=== PATIENT | male | born 1940 | race Caucasian/White ===

== ENCOUNTER 2016-12-21 15:21 | Inpatient (IN) | payer MEDICARE ==
[2016-12-21] MEDS ORDERED: IBUPROFEN 600 MG TAB PO STA (15:51)
[2016-12-21] MEDS ORDERED: ACETAMINOPHEN TAB 500 MG TAB PO STA (15:51)
--- NOTE | 2016-12-21 15:54 | ED ---
General Adult HPI - General Chief complaint: Fever Stated complaint: cancer patient/fever Time Seen by Provider: 12/21/16 15:39 Source: patient, family, RN notes reviewed Mode of arrival: wheelchair Limitations: no limitations - History of Present Illness Initial comments: Patient is a pleasant 76-year-old male presenting to the emergency Department with complaints of fever. Onset was a couple hours ago. Patient has had sinus congestion and mild sore throat for the past 3-4 days. Patient does have some mild yellow sputum production with cough. Patient denies chest pain. Patient had difficulty taking Motrin and therefore did not take it. This was secondary to his congestion. Patient does have a history of CLL and is not currently on any treatment for this. - Related Data Home Medications Medication Instructions Recorded Confirmed Budesonide/Formoterol Fumarate 2 puff INHALATION RT-BID 12/21/16 12/21/16 [Symbicort 160-4.5 Mcg Inhaler] Levothyroxine Sodium [Synthroid] 100 mcg PO DAILY 12/21/16 12/21/16 Allergies Allergy/AdvReac Type Severity Reaction Status Date / Time amoxicillin Allergy Rash/Hives Verified 12/21/16 16:10 Review of Systems ROS Statement: Those systems with pertinent positive or pertinent negative responses have been documented in the HPI. ROS Other: All systems not noted in ROS Statement are negative. Constitutional: Reports: fever, chills Eyes: Denies: eye pain ENT: Reports: throat pain, congestion. Denies: ear pain Respiratory: Reports: cough. Denies: dyspnea Cardiovascular: Denies: chest pain Endocrine: Reports: fatigue Gastrointestinal: Denies: abdominal pain Genitourinary: Denies: urgency Musculoskeletal: Denies: back pain Skin: Denies: rash Neurological: Denies: weakness Past Medical History Past Medical History: Cancer, Pneumonia, Prostate Disorder, Thyroid Disorder Additional Past Medical History / Comment(s): CHRONIC LYMPHOCYTIC LEUKEMIA, CHRONIC BRONCHITIS History of Any Multi-Drug Resistant Organisms: None Reported Additional Past Surgical History / Comment(s): THYROID SURGERY Past Anesthesia/Blood Transfusion Reactions: Blood Transfusion Reaction Additional Past Anesthesia/Blood Transfusion Reaction / Comment(s): GAVE BENADRYL AND RAN SLOW. Has had multiple transfusuions and has a reaction every time Past Psychological History: No Psychological Hx Reported Smoking Status: Former smoker Past Alcohol Use History: None Reported Past Drug Use History: None Reported General Exam Limitations: no limitations General appearance: alert, in no apparent distress Head exam: Present: atraumatic Eye exam: Present: normal appearance, PERRL ENT exam: Present: other (Left posterior pharynx with erythema and several small ulcers. Left lateral posterior visualized tongue with plaque/ulcer.) Neck exam: Present: normal inspection. Absent: meningismus Respiratory exam: Present: normal lung sounds bilaterally. Absent: chest wall tenderness Cardiovascular Exam: Present: regular rate, normal rhythm GI/Abdominal exam: Present: soft. Absent: distended, tenderness, guarding, rebound, rigid Extremities exam: Present: normal inspection. Absent: pedal edema, calf tenderness Neurological exam: Present: alert Psychiatric exam: Present: normal affect, normal mood Skin exam: Present: normal color Course Vital Signs 12/21/16 12/21/16 12/21/16 15:38 16:10 16:38 Temperature 103.4 F H 100.6 F H Pulse Rate 100 120 H Respiratory 22 20 20 Rate Blood Pressure 155/74 136/77 O2 Sat by Pulse 94 L 92 L Oximetry 12/21/16 17:31 Temperature Pulse Rate 112 H Respiratory 20 Rate Blood Pressure 147/84 O2 Sat by Pulse 91 L Oximetry EKG Findings - EKG Comments: EKG Findings:: Normal sinus rhythm 97. Normal intervals. Normal axis. Normal QRS. Normal ST-T. Medical Decision Making - Medical Decision Making Patient reevaluated and updated. Case discussed with Dr. Rucker, who will admit his patient. Consult with Dr. Pimentel. He agrees with antibiotic choice at this time. Patient does meet sepsis criteria. - Lab Data Result diagrams: 12/21/16 15:50 12/21/16 15:50 Lab Results 12/21/16 12/21/16 12/21/16 Range/Units 15:50 15:50 15:50 WBC 133.1 H* (3.8-10.6) k/uL RBC 4.79 (4.30-5.90) m/uL Hgb 13.1 (13.0-17.5) gm/dL Hct 40.6 (39.0-53.0) % MCV 84.8 (80.0-100.0) fL MCH 27.3 (25.0-35.0) pg MCHC 32.2 (31.0-37.0) g/dL RDW 17.1 H (11.5-15.5) % Plt Count 179 (150-450) k/uL Neutrophils % (Manual) 10.0 % Lymphocytes % (Manual) 89.0 % Monocytes % (Manual) 1.0 % Neutrophils # (Manual) 13.3 H (1.3-7.7) k/uL Lymphocytes # (Manual) 118.5 H (1.0-4.8) k/uL Monocytes # (Manual) 1.3 H (0-1.0) k/uL Nucleated RBCs 0 (0-0) /100 WBC Manual Slide Review Performed Hypochromasia Slight Anisocytosis Slight PT (9.0-12.0) sec INR (<1.2) APTT (22.0-30.0) sec Sodium 137 (137-145) mmol/L Potassium 4.4 (3.5-5.1) mmol/L Chloride 101 (98-107) mmol/L Carbon Dioxide 24 (22-30) mmol/L Anion Gap 12 mmol/L BUN 17 (9-20) mg/dL Creatinine 1.10 (0.66-1.25) mg/dL Est GFR (MDRD) Af Amer >60 (>60 ml/min/1.73 sqM) Est GFR (MDRD) Non-Af >60 (>60 ml/min/1.73 sqM) Glucose 104 H (74-99) mg/dL Plasma Lactic Acid Jason 1.1 (0.7-2.0) mmol/L Calcium 9.0 (8.4-10.2) mg/dL Total Bilirubin 0.6 (0.2-1.3) mg/dL AST 25 (17-59) U/L ALT 33 (21-72) U/L Alkaline Phosphatase 90 (38-126) U/L Total Protein 5.8 L (6.3-8.2) g/dL Albumin 4.0 (3.5-5.0) g/dL Urine Color Urine Appearance (Clear) Urine pH (5.0-8.0) Ur Specific [place] (1.001-1.035) Urine Protein (Negative) Urine Glucose (UA) (Negative) Urine Ketones (Negative) Urine Blood (Negative) Urine Nitrite (Negative) Urine Bilirubin (Negative) Urine Urobilinogen (<2.0) mg/dL Ur Leukocyte Esterase (Negative) Urine RBC (0-5) /hpf Urine WBC (0-5) /hpf Urine Mucus (None) /hpf 12/21/16 12/21/16 Range/Units 15:50 15:50 WBC (3.8-10.6) k/uL RBC (4.30-5.90) m/uL Hgb (13.0-17.5) gm/dL Hct (39.0-53.0) % MCV (80.0-100.0) fL MCH (25.0-35.0) pg MCHC (31.0-37.0) g/dL RDW (11.5-15.5) % Plt Count (150-450) k/uL Neutrophils % (Manual) % Lymphocytes % (Manual) % Monocytes % (Manual) % Neutrophils # (Manual) (1.3-7.7) k/uL Lymphocytes # (Manual) (1.0-4.8) k/uL Monocytes # (Manual) (0-1.0) k/uL Nucleated RBCs (0-0) /100 WBC Manual Slide Review Hypochromasia Anisocytosis PT 12.1 H (9.0-12.0) sec INR 1.2 H (<1.2) APTT 25.0 (22.0-30.0) sec Sodium (137-145) mmol/L Potassium (3.5-5.1) mmol/L Chloride (98-107) mmol/L Carbon Dioxide (22-30) mmol/L Anion Gap mmol/L BUN (9-20) mg/dL Creatinine (0.66-1.25) mg/dL Est GFR (MDRD) Af Amer (>60 ml/min/1.73 sqM) Est GFR (MDRD) Non-Af (>60 ml/min/1.73 sqM) Glucose (74-99) mg/dL Plasma Lactic Acid Jason (0.7-2.0) mmol/L Calcium (8.4-10.2) mg/dL Total Bilirubin (0.2-1.3) mg/dL AST (17-59) U/L ALT (21-72) U/L Alkaline Phosphatase (38-126) U/L Total Protein (6.3-8.2) g/dL Albumin (3.5-5.0) g/dL Urine Color Yellow Urine Appearance Clear (Clear) Urine pH 5.0 (5.0-8.0) Ur Specific [place] 1.021 (1.001-1.035) Urine Protein 1+ H (Negative) Urine Glucose (UA) Negative (Negative) Urine Ketones 2+ H (Negative) Urine Blood Trace H (Negative) Urine Nitrite Negative (Negative) Urine Bilirubin Negative (Negative) Urine Urobilinogen <2.0 (<2.0) mg/dL Ur Leukocyte Esterase Trace H (Negative) Urine RBC <1 (0-5) /hpf Urine WBC 6 H (0-5) /hpf Urine Mucus Moderate H (None) /hpf - Radiology Data Radiology results: image reviewed (Chest x-ray shows left basilar infiltrate) Critical Care Time Critical Care Time: Yes Total Critical Care Time: 33 Disposition Clinical Impression: Pneumonia, Sepsis Disposition: ADMITTED IP TO THIS [facility] Condition: Serious Referrals: None,Stated [Primary Care Provider] - 1-2 days Decision Time: 17:52
[2016-12-21] MEDS: SODIUM CHLORIDE 0.9% 500 ML IV SCH (15:58)
[2016-12-21 16:13] LABS: Appearance,Urine Clear (Clear); Bilirubin,Urine Negative (Negative); Glucose,Urine (UA) Negative (Negative); Ketones,Urine 2+ (Negative); Leukocyte Esterase,Urine Trace (Negative); Mucus,Urine Moderate /hpf; Nitrite,Urine Negative (Negative); Particle Count 6083; Protein,Urine 1+ (Negative); RBC,Urine <1 /hpf (0-5); Specific Gravity,Urine 1.021 (1.001-1.035); UA Billing (MACRO vs. MICRO) MICRO; Urobilinogen,Urine <2.0 mg/dL (<2.0); WBC,Urine 6 /hpf (0-5)
[2016-12-21 16:17] LABS: INR 1.2 (<1.2); Prothrombin Time 12.1 sec (9.0-12.0)
[2016-12-21 16:18] LABS: ALT 33 U/L (21-72); AST 25 U/L (17-59); Alkaline Phosphatase 90 U/L (38-126); Anion Gap 12 mmol/L; Anisocytosis Slight; Aty Lym Flag Marked; Blood Urea Nitrogen 17 mg/dL (9-20); CH 26.3; CHCM 31.2; Carbon Dioxide 24 mmol/L (22-30); Chloride 101 mmol/L (98-107); Glucose 104 mg/dL (74-99); HCT 40.6 % (39.0-53.0); HDW 2.92; HGB 13.1 gm/dL (13.0-17.5); Hypochromasia Slight; MCH 27.3 pg (25.0-35.0); MCHC 32.2 g/dL (31.0-37.0); MCV 84.8 fL (80.0-100.0); Mean Platelet Volume 7.3; Non-African American GFR(MDRD) >60 (>60 ml/min/1.73 sqM); Potassium 4.4 mmol/L (3.5-5.1); RBC 4.79 m/uL (4.30-5.90); RDW 17.1 % (11.5-15.5); Sodium 137 mmol/L (137-145); Total Bilirubin 0.6 mg/dL (0.2-1.3); Total Protein 5.8 g/dL (6.3-8.2); WBC (Perox) 128.4
[2016-12-21 16:31] LABS: WBC 133.1 k/uL (3.8-10.6)
--- NOTE | 2016-12-21 16:33 | XR ---
EXAMINATION TYPE: XR chest 2V DATE OF EXAM: 12/21/2016 COMPARISON: 01/22/2015 HISTORY: Fever TECHNIQUE: Frontal and lateral views of the chest are obtained. FINDINGS: There is no heart failure. There is some coarsening of markings at the left lung base. The re is no pleural effusion. There are no hilar masses. There are chest leads. Bony thorax is intact. IMPRESSION: New mild left basilar infiltrate compared to old exam. No heart failure.
[2016-12-21] MEDS ORDERED: LEVOFLOXACIN 750MG-D5W PMX 750 MG in DEXTROSE/WATER 1 150ML.BAG IVPB STA (17:25)
[2016-12-21] MEDS ORDERED: AZTREONAM 2 GM in SODIUM CHLORIDE 0.9% 100 ML IVPB STA (17:31)
[2016-12-21 17:37] LABS: Add Differential Manual Differential
[2016-12-21 17:39] LABS: Nucleated Red Blood Cells 0 /100 WBC (0-0); Total Cells Counted 100
[2016-12-21 17:40] LABS: Manual Review Performed
[2016-12-21] MEDS ORDERED: SODIUM CHLORIDE 0.9% 1,000 ML IV STA (17:51)
[2016-12-21] MEDS ORDERED: PNEUMONIA PROTOCOL UTILIZED 1 EACH MISC PO PRN (17:52)
[2016-12-21] MEDS ORDERED: HEPARIN SODIUM,PORCINE 5,000 UNIT/ML 1 ML VIAL IV PRN (18:21)
[2016-12-21] MEDS ORDERED: HEPARIN SODIUM,PORCINE 5,000 UNIT/ML 1 ML VIAL IV ONE (18:21)
[2016-12-21] MEDS ORDERED: DILTIAZEM 5 MG/ML 5 ML VIAL IVP STA (18:22)
[2016-12-21] MEDS ORDERED: DILTIAZEM 125 MG in SODIUM CHLORIDE 0.9% 100 ML IV SCH (18:30)
[2016-12-21] MEDS: HEPARIN SODIUM,PORCINE/D5W PMX 25,000 UNIT in DEXTROSE/WATER 1 500ML.BAG IV SCH (18:41)
[2016-12-21] MEDS: SODIUM CHLORIDE 0.9% 1,000 ML IV SCH (19:08)
[2016-12-21 19:21] LABS: Creatine Kinase MB 0.7 ng/mL (0.0-2.4); Troponin I 0.021 ng/mL (0.000-0.034)
[2016-12-21 19:28] VITALS: BMI 30.1
[2016-12-21] MEDS: AZTREONAM 2 GM in SODIUM CHLORIDE 0.9% 100 ML IVPB SCH (23:33)
[2016-12-22] MEDS ORDERED: ACETAMINOPHEN TAB 325 MG TAB PO PRN (01:08)
[2016-12-22] MEDS ORDERED: LEVOTHYROXINE 125 MCG TAB PO SCH (06:30)
[2016-12-22 06:36] LABS: Anisocytosis Slight; Aty Lym Flag Marked; CH 26.2; CHCM 30.1; HCT 37.7 % (39.0-53.0); HDW 2.74; HGB 11.9 gm/dL (13.0-17.5); Hypochromasia Marked; MCH 27.5 pg (25.0-35.0); MCHC 31.5 g/dL (31.0-37.0); MCV 87.5 fL (80.0-100.0); Mean Platelet Volume 7.4; RBC 4.31 m/uL (4.30-5.90); RDW 16.8 % (11.5-15.5); WBC (Perox) 90.98
[2016-12-22 06:44] LABS: WBC 91.6 k/uL (3.8-10.6)
[2016-12-22] MEDS: ACETAMINOPHEN IV (For NPO) 1,000 MG in EMPTY BAG 1 BAG IVPB PRN ×3 (06:44→22:29)
[2016-12-22] MEDS: SODIUM CHLORIDE 0.9% 1,000 ML IV SCH ×3 (06:45→20:14)
[2016-12-22 06:53] LABS: INR 1.4 (<1.2); Partial Thromboplastin Time 50.2 sec (22.0-30.0); Prothrombin Time 13.5 sec (9.0-12.0)
[2016-12-22 07:04] LABS: Add Differential Manual Differential
--- NOTE | 2016-12-22 07:34 | XR ---
EXAMINATION TYPE: XR chest 2V DATE OF EXAM: 12/22/2016 COMPARISON: 12/21/2016 HISTORY: Shortness of breath TECHNIQUE: Frontal and lateral views of the chest are obtained. FINDINGS: Scattered senescent parenchymal changes noted. Hyperinflation compatible with COPD. Left lower lobe atelectasis and/or infiltrate persists and is essentially unchanged. Heart size is stable. Mediastinal structures are stable and grossly unremarkable. No evidence for hilar prominence. Degenerative changes dorsal spine. IMPRESSION: 1. Left lower lobe atelectasis and/or infiltrate persists and is essentially unchanged.
[2016-12-22] MEDS: AZTREONAM 2 GM in SODIUM CHLORIDE 0.9% 100 ML IVPB SCH (08:09)
[2016-12-22] MEDS: SYMBICORT 160-4.5 MCG INHALER INHALATION SCH ×2 (08:36→20:29)
[2016-12-22] MEDS ORDERED: LEVOTHYROXINE IVP 100 MCG/5 ML VIAL IVPB SCH (09:30)
[2016-12-22] MEDS ORDERED: LEVOTHYROXINE IVP 100 MCG/5 ML VIAL IV SCH (09:37)
[2016-12-22 09:53] LABS: Manual Review Performed; Nucleated Red Blood Cells 0 /100 WBC (0-0); Total Cells Counted 100
[2016-12-22] MEDS: MULTIVITAMINS, THERA 1 EACH TAB PO SCH (10:25)
[2016-12-22] MEDS: LEVOTHYROXINE IVP 100 MCG/5 ML VIAL IV SCH (10:50)
--- NOTE | 2016-12-22 11:58 | ECHOF ---
Referral Reason:New AF MEASUREMENTS -------- HEIGHT: 182.9 cm WEIGHT: 106.6 kg BP: IVSd: 1.2 cm (0.6 - 1.1) LVIDd: 4.1 cm (3.9 - 5.3) LVPWd: 1.3 cm (0.6 - 1.1) IVSs: 1.4 cm LVIDs: 2.3 cm LVPWs: 2.3 cm LAESV Index (A-L): 30.36 ml/m Ao Diam: 3.2 cm (2.0 - 3.7) AV Cusp: 2.2 cm (1.5 - 2.6) LA Diam: 4.5 cm (2.7 - 3.8) MV EXCURSION: 20.477 mm (> 18.000) MV EF SLOPE: 96 mm/s (70 - 150) EPSS: 0.4 cm MV E Barry: 0.93 m/s MV DecT: 149 ms MV A Barry: 0.94 m/s MV E/A Ratio: 0.98 RAP: 5.00 mmHg RVSP: 27.33 mmHg FINDINGS -------- Sinus rhythm. This was a technically adequate study. The left ventricular size is normal. There is mild concentric left ventricular hypertrophy. Overall left ventricular systolic function is low-normal with, an EF between 50 - 55 %. The right ventricle is normal in size and function. LA is midly dilated 29-33ml/m2. The right atrium is normal in size. Aortic valve is trileaflet and is mildly thickened. The mitral valve leaflets are mildly thickened. Mild mitral regurgitation is present. Mild tricuspid regurgitation present. The right ventricular systolic pressure, as measured by Doppler, is 27.33mmHg. There is no pulmonic regurgitation present. The aortic root size is normal. There is no pericardial effusion. CONCLUSIONS -------- 1. Sinus rhythm. 2. There is no pulmonic regurgitation present. 3. The aortic root size is normal. 4. There is no pericardial effusion. 5. This was a technically adequate study. 6. There is mild concentric left ventricular hypertrophy. 7. Overall left ventricular systolic function is low-normal with, an EF between 50 - 55 %. 8. LA is midly dilated 29-33ml/m2. 9. Aortic valve is trileaflet and is mildly thickened. 10. The mitral valve leaflets are mildly thickened. 11. Mild mitral regurgitation is present. 12. Mild tricuspid regurgitation present. ROLL CONTOUR GRINDER: Madelyn Curran RDCS
--- NOTE | 2016-12-22 12:00 | P.CRDCN ---
History of Present Illness Consult date: 12/22/16 Reason for Consult (text): New atrial fibrillation with RVR Chief complaint: Fever, cough, sinus congestion, sore throat History of present illness: This a pleasant 76-year-old gentleman with a history of CLL, who presented to the emergency department with complaints of fever with associated sore throat, sinus congestion and a cough with yellow sputum. Chest x-ray and admission showed mild left basilar infiltrate. Initially found to be in sinus rhythm however converted to atrial fibrillation with rapid ventricular response while in the emergency department. He was started on IV heparin and Cardizem drip at 5 mg an hour. He has since converted to sinus rhythm. He is being kept nothing by mouth due to difficulty swallowing secondary to throat sores. Upon examination, patient is sitting up in a chair at the side of the bed. He denies any complaints of palpitations, denies feeling his heart racing. He denies complaints of chest discomfort or dizziness. He's had no syncope and no edema. It is a complaint of sore throat, sinus congestion and a cough. Patient has been febrile on and off since admission. Past Medical History Past Medical History: Cancer, Pneumonia, Prostate Disorder, Thyroid Disorder Additional Past Medical History / Comment(s): CHRONIC LYMPHOCYTIC LEUKEMIA, CHRONIC BRONCHITIS History of Any Multi-Drug Resistant Organisms: None Reported Additional Past Surgical History / Comment(s): THYROID SURGERY Past Anesthesia/Blood Transfusion Reactions: Blood Transfusion Reaction Additional Past Anesthesia/Blood Transfusion Reaction / Comment(s): GAVE BENADRYL AND RAN SLOW. Has had multiple transfusuions and has a reaction every time Past Psychological History: No Psychological Hx Reported Smoking Status: Former smoker - Past Family History Father Family Medical History: Dementia Mother Family Medical History: No Reported History Medications and Allergies Home Medications Medication Instructions Recorded Confirmed Type Budesonide/Formoterol Fumarate 2 puff INHALATION RT-BID 12/21/16 12/21/16 History [Symbicort 160-4.5 Mcg Inhaler] Levothyroxine Sodium [Synthroid] 125 mcg PO DAILY 12/21/16 12/21/16 History Multivitamins, Thera [Multivitamin 1 tab PO DAILY 12/21/16 12/21/16 History (formulary)] Allergies Allergy/AdvReac Type Severity Reaction Status Date / Time amoxicillin Allergy Rash/Hives Verified 12/21/16 16:10 Physical Exam Vitals: Vital Signs Temp Pulse Pulse Resp BP BP Pulse Ox 12/22/16 11:40 99.5 F 92 20 153/66 94 L 12/22/16 08:20 99.4 F 76 16 123/58 91 L 12/22/16 04:00 102.0 F H 92 20 133/59 92 L 12/22/16 00:00 99.9 F H 94 20 126/61 94 L 12/21/16 20:00 98.5 F 94 20 122/58 94 L 12/21/16 19:11 134 H 110/56 12/21/16 18:43 100.2 F H 133 H 20 115/78 94 L 12/21/16 18:19 98.4 F 140 H 16 114/67 94 L 12/21/16 18:00 134 H 12/21/16 17:31 112 H 20 147/84 91 L 12/21/16 16:38 100.6 F H 120 H 20 136/77 92 L 12/21/16 16:10 20 12/21/16 15:38 103.4 F H 100 22 155/74 94 L Intake and Output 12/21/16 12/22/16 12/22/16 22:59 06:59 14:59 Intake Total 655.043 1014 Output Total 100 100 Balance 26.667 1074 Intake: IV 1174 ACETAMINOPHEN IV (For NPO 50 ) 1,000 mg In Empty Bag 1 bag @ 400 mls/hr IVPB Q8HR PRN Rx#:[id number] Aztreonam 2 gm In Sodium 100 Chloride 0.9% 100 ml @ 100 mls/hr IVPB Q8HR [facility] Rx#:[id number] Diltiazem 125 mg In 40 Sodium Chloride 0.9% 100 ml @ 5 MG/HR 5 mls/hr IV .Q24H [facility] Rx#:[id number] Heparin Sodium,Porcine/ 184 D5w Pmx 25,000 unit In Dextrose/Water 1 500ml. bag @ 10.5 UNITS/KG/HR 20 mls/hr IV .Q24H [facility] Rx#: [id number] Sodium Chloride 0.9% 1, 800 000 ml @ 100 mls/hr IV . Q10H [facility] Rx#:[id number] Intake, IV Titration 126.667 Amount Heparin Sodium,Porcine/ 126.667 D5w Pmx 25,000 unit In Dextrose/Water 1 500ml. bag @ 10.5 UNITS/KG/HR 20 mls/hr IV .Q24H [facility] Rx#: [id number] Output: Urine 100 100 Other: Voiding Method Urinal Urinal # Voids 0 1 Weight 95.254 kg 107 kg PHYSICAL EXAMINATION: HEENT: Head is atraumatic, normocephalic. Pupils equal, round. Neck is supple. There is no elevated jugular venous pressure. HEART EXAMINATION: Heart sounds regular, S1 and S2 normal. No murmur or gallop heard. CHEST EXAMINATION: Lungs reveal expiratory wheezing throughout with crackles noted to left lower lobe. No chest wall tenderness is noted on palpation or with deep breathing. ABDOMEN: Soft, nontender. Bowel sounds are heard. No organomegaly noted. EXTREMITIES: 2+ peripheral pulses with no evidence of peripheral edema and no calf tenderness noted. NEUROLOGIC patient is awake, alert and oriented x3. . Results 12/22/16 06:05 12/21/16 15:50 Cardiac Enzymes 12/21/16 12/21/16 Range/Units 15:50 15:50 AST 25 (17-59) U/L CK-MB (CK-2) 0.7 (0.0-2.4) ng/mL Troponin I 0.021 (0.000-0.034) ng/mL Coagulation 12/21/16 12/22/16 12/22/16 Range/Units 15:50 00:11 06:05 PT 12.1 H 13.5 H (9.0-12.0) sec APTT 25.0 46.3 H 50.2 H (22.0-30.0) sec CBC 12/21/16 12/22/16 Range/Units 15:50 06:05 WBC 133.1 H* 91.6 H* (3.8-10.6) k/uL RBC 4.79 4.31 (4.30-5.90) m/uL Hgb 13.1 11.9 L (13.0-17.5) gm/dL Hct 40.6 37.7 L (39.0-53.0) % Plt Count 179 156 (150-450) k/uL Comprehensive Metabolic Panel 12/21/16 Range/Units 15:50 Sodium 137 (137-145) mmol/L Potassium 4.4 (3.5-5.1) mmol/L Chloride 101 (98-107) mmol/L Carbon Dioxide 24 (22-30) mmol/L BUN 17 (9-20) mg/dL Creatinine 1.10 (0.66-1.25) mg/dL Glucose 104 H (74-99) mg/dL Calcium 9.0 (8.4-10.2) mg/dL AST 25 (17-59) U/L ALT 33 (21-72) U/L Alkaline Phosphatase 90 (38-126) U/L Total Protein 5.8 L (6.3-8.2) g/dL Albumin 4.0 (3.5-5.0) g/dL Current Medications Generic Name Dose Route Start Last Admin Trade Name Freq PRN Reason Stop Dose Admin Acetaminophen 650 mg 12/22/16 01:08 12/22/16 01:37 Tylenol Tab PO 650 mg Q4HR PRN Administration Fever and/ or Pain Budesonide/Formoterol Fumarate 2 puff 12/22/16 08:00 12/22/16 08:36 Symbicort 160-4.5 Mcg Inhaler INHALATION 2 puff RT-BID [facility] Administration Heparin Sodium (Porcine) 0 unit 12/21/16 18:21 Heparin IV PER PROTOCOL PRN Low PTT Protocol Aztreonam 2 gm/ Sodium 100 mls @ 100 mls/hr 12/22/16 00:00 12/22/16 08:09 Chloride IVPB 12/30/16 17:25 100 mls/hr Q8HR [facility] Administration Levofloxacin 750 mg/ IV 150 mls @ 100 mls/hr 12/22/16 18:00 Solution IVPB 01/01/17 18:01 Q24H [facility] Sodium Chloride 1,000 mls @ 100 mls/hr 12/21/16 18:00 12/22/16 08:21 Saline 0.9% IV 100 mls/hr .Q10H [facility] Administration Heparin Sodium/Dextrose 25,000 500 mls @ 20 mls/hr 12/21/16 18:30 12/22/16 01 :01 unit/ IV Solution IV 12.5 units/kg/hr .Q24H [facility] 23.81 mls/hr Protocol Titration 10.5 UNITS/KG/HR Acetaminophen 1,000 mg/ IV 100 mls @ 400 mls/hr 12/22/16 05:32 12/22/16 06:44 Solution IVPB 12/23/16 08:14 400 mls/hr Q8HR PRN Administration Fever Levothyroxine Sodium 62.5 mcg 12/22/16 09:30 12/22/16 10:50 Synthroid Ivp IV 62.5 mcg DAILY@0630 [facility] Administration Miscellaneous Information 1 each 12/21/16 17:52 Pneumonia Protocol Utilized PO ONCE PRN Per Protocol Multivitamins 1 each 12/22/16 09:00 12/22/16 10:25 Theragran PO Not Given DAILY [facility] Intake and Output 12/21/16 12/22/16 12/22/16 22:59 06:59 14:59 Intake Total 401.318 0659 Output Total 100 100 Balance 26.667 1074 Intake: IV 1174 ACETAMINOPHEN IV (For NPO 50 ) 1,000 mg In Empty Bag 1 bag @ 400 mls/hr IVPB Q8HR PRN Rx#:[id number] Aztreonam 2 gm In Sodium 100 Chloride 0.9% 100 ml @ 100 mls/hr IVPB Q8HR [facility] Rx#:[id number] Diltiazem 125 mg In 40 Sodium Chloride 0.9% 100 ml @ 5 MG/HR 5 mls/hr IV .Q24H [facility] Rx#:[id number] Heparin Sodium,Porcine/ 184 D5w Pmx 25,000 unit In Dextrose/Water 1 500ml. bag @ 10.5 UNITS/KG/HR 20 mls/hr IV .Q24H [facility] Rx#: [id number] Sodium Chloride 0.9% 1, 800 000 ml @ 100 mls/hr IV . Q10H [facility] Rx#:[id number] Intake, IV Titration 126.667 Amount Heparin Sodium,Porcine/ 126.667 D5w Pmx 25,000 unit In Dextrose/Water 1 500ml. bag @ 10.5 UNITS/KG/HR 20 mls/hr IV .Q24H [facility] Rx#: [id number] Output: Urine 100 100 Other: Voiding Method Urinal Urinal # Voids 0 1 Weight 95.254 kg 107 kg 12/22/16 06:05 12/21/16 15:50 Assessment and Plan Plan: Assessment and plan #1 fever secondary to pneumonia, upper respiratory infection #2 paroxysmal atrial fibrillation with rapid ventricular response, currently in sinus rhythm #3 CLL From cardiology's perspective, we will obtain a 2-D echo with Doppler. We will assess patient's thyroid function. Patient is currently nothing by mouth due to swallowing difficulties secondary to sore throat. We will continue IV heparin. Stop IV Cardizem as patient is in sinus rhythm. If patient atrial fibrillation may resume IV Cardizem. Further recommendations to follow. LATHE SET UP PERSON note has been reviewed, I agree with a documented findings and plan of care. Patient was seen and examined.
[2016-12-22] MEDS ORDERED: FLUCONAZOLE IN NACL,ISO-OSM 100 MG in SALINE 1 50ML.BAG IVPB SCH (13:30)
--- NOTE | 2016-12-22 14:25 | P.CONS ---
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 Rucker. History is obtained from him and his and they state that he had sores side of his tongue that started on Thursday. By his throat started to feel sore and he was eating and drinking okay at that point. Later though he noticed that he had felt like pills were getting stuck in his throat. By Thursday his throat was really sore and he had a very bad night on Thursday. On Thursday he was sleeping all day and his temperature was 101.6 and patient's made him come into the hospital for evaluation. He presented with a white count of 133 with repeat at 91.6, temperature 103.4 with heart rate running 100-120. Patient was found to be in atrial fibrillation with rapid ventricular response with no previous history. Chest x-ray showed a new mild left basilar infiltrate. Patient was admitted to the selective care unit with Cardizem drip and heparin drip and consult placed with cardiology and pulmonary medicine as well. Patient does state he last saw Dr. Rucker one month ago and his white count is usually 300. He denies having any nausea vomiting diarrhea or dysuria. His last antibiotics were the middle of October with azithromycin and prednisone. Patient is not on any current medication for CLL and he has been very healthy for 2 years according to his . He has a Chronic cough with sputum production but no other symptoms. Temperature max as morning was 102. The patient has been seen by cardiology and continued IV heparin. Patient converted to a sinus rhythm and IV Cardizem was discontinued. Echocardiogram showed mild concentric left ventricular hypertrophy, EF 50-55% LAD dilated at 29-33, mild mitral regurgitation mild tricuspid regurgitation. No mention of vegetation. Patient was seen by speech therapy and has been made nothing by mouth with plan for reassessment in 24 hours. Review of Systems All systems: negative Constitutional: Reports daytime sleepiness, Reports fever, Reports lethargy, Reports malaise, Denies chills Eyes: denies blurred vision, denies pain Ears, nose, mouth and throat: Reports mouth pain, Reports sore throat, Denies headache Cardiovascular: Denies chest pain, Denies shortness of breath Respiratory: Reports cough, Reports cough with sputum, Denies excessive sputum, Denies hemoptysis, Denies home oxygen Gastrointestinal: Denies abdominal pain, Denies diarrhea, Denies nausea, Denies vomiting Musculoskeletal: Denies myalgias Integumentary: Denies pruritus, Denies rash Neurological: Denies numbness, Denies weakness Psychiatric: Denies anxiety, Denies depression Endocrine: Denies fatigue, Denies weight change Past Medical History Past Medical History: Cancer, Pneumonia, Prostate Disorder, Thyroid Disorder Additional Past Medical History / Comment(s): CHRONIC LYMPHOCYTIC LEUKEMIA, CHRONIC BRONCHITIS History of Any Multi-Drug Resistant Organisms: None Reported Additional Past Surgical History / Comment(s): THYROID SURGERY Past Anesthesia/Blood Transfusion Reactions: Blood Transfusion Reaction Additional Past Anesthesia/Blood Transfusion Reaction / Comm: GAVE BENADRYL AND RAN SLOW. Has had multiple transfusuions and has a reaction every time Past Psychological History: No Psychological Hx Reported Smoking Status: Former smoker Additional Past Alcohol Use History / Comment(s): Patient was only a smoker for 5-6 years in the 1960s. No marijuana or street drug use. He and his winter in [place] and return to [place] for the oates. They have a [facility] terrier without any other animal exposures he currently lives on the [place]. Patient does normal yardwork but no extensive gardening or other hobbies. - Past Family History Father Family Medical History: Dementia Mother Family Medical History: No Reported History Medications and Allergies Home Medications Medication Instructions Recorded Confirmed Type Budesonide/Formoterol Fumarate 2 puff INHALATION RT-BID 12/21/16 12/21/16 History [Symbicort 160-4.5 Mcg Inhaler] Levothyroxine Sodium [Synthroid] 125 mcg PO DAILY 12/21/16 12/21/16 History Multivitamins, Thera [Multivitamin 1 tab PO DAILY 12/21/16 12/21/16 History (formulary)] Allergies Allergy/AdvReac Type Severity Reaction Status Date / Time amoxicillin Allergy Rash/Hives Verified 12/21/16 16:10 Physical Exam Vitals: Vital Signs Temp Pulse Pulse Resp BP BP Pulse Ox 12/22/16 11:40 99.5 F 92 20 153/66 94 L 12/22/16 08:20 99.4 F 76 16 123/58 91 L 12/22/16 04:00 102.0 F H 92 20 133/59 92 L 12/22/16 00:00 99.9 F H 94 20 126/61 94 L 12/21/16 20:00 98.5 F 94 20 122/58 94 L 12/21/16 19:11 134 H 110/56 12/21/16 18:43 100.2 F H 133 H 20 115/78 94 L 12/21/16 18:19 98.4 F 140 H 16 114/67 94 L 12/21/16 18:00 134 H 12/21/16 17:31 112 H 20 147/84 91 L 12/21/16 16:38 100.6 F H 120 H 20 136/77 92 L 12/21/16 16:10 20 12/21/16 15:38 103.4 F H 100 22 155/74 94 L Intake and Output 12/21/16 12/22/16 12/22/16 22:59 06:59 14:59 Intake Total 856.113 2512 Output Total 100 100 Balance 26.667 1074 Intake: IV 1174 ACETAMINOPHEN IV (For NPO 50 ) 1,000 mg In Empty Bag 1 bag @ 400 mls/hr IVPB Q8HR PRN Rx#:[id number] Aztreonam 2 gm In Sodium 100 Chloride 0.9% 100 ml @ 100 mls/hr IVPB Q8HR [facility] Rx#:[id number] Diltiazem 125 mg In 40 Sodium Chloride 0.9% 100 ml @ 5 MG/HR 5 mls/hr IV .Q24H [facility] Rx#:[id number] Heparin Sodium,Porcine/ 184 D5w Pmx 25,000 unit In Dextrose/Water 1 500ml. bag @ 10.5 UNITS/KG/HR 20 mls/hr IV .Q24H [facility] Rx#: [id number] Sodium Chloride 0.9% 1, 800 000 ml @ 100 mls/hr IV . Q10H [facility] Rx#:[id number] Intake, IV Titration 126.667 Amount Heparin Sodium,Porcine/ 126.667 D5w Pmx 25,000 unit In Dextrose/Water 1 500ml. bag @ 10.5 UNITS/KG/HR 20 mls/hr IV .Q24H [facility] Rx#: [id number] Output: Urine 100 100 Other: Voiding Method Urinal Urinal # Voids 0 1 Weight 95.254 kg 107 kg Gen: This is a 76-year-old male. He is sitting at the edge of the bed and appears to be somewhat uncomfortable. He appears to be in no acute distress respiratory distress HEENT: Head is atraumatic, normocephalic. Pupils equal, round. Sclerae is anicteric. Conjunctivae are pink. Mucous membranes of the mouth are moist. Patient has a lesion on the left lateral tongue as well as lesions noted in the oropharynx with white exudate. NECK: Supple. No JVD. No lymphadenopathy. No thyromegaly. LUNGS: A few scattered crackles. No intercostal retractions. HEART: Regular rate and rhythm. No murmur. ABDOMEN: Soft. Bowel sounds are present. No masses. No tenderness. EXTREMITIES: No pedal edema. No calf tenderness. Dorsalis pedis +2 bilaterally. NEUROLOGICAL: Patient is awake, alert and oriented x3. Cranial nerves 2 through 12 are grossly intact. Results Results: Laboratory Results WBC 91.6 k/uL (3.8-10.6) H* 12/22/16 06:05 RBC 4.31 m/uL (4.30-5.90) 12/22/16 06:05 Hgb 11.9 gm/dL (13.0-17.5) L 12/22/16 06:05 Hct 37.7 % (39.0-53.0) L 12/22/16 06:05 MCV 87.5 fL (80.0-100.0) 12/22/16 06:05 MCH 27.5 pg (25.0-35.0) 12/22/16 06:05 MCHC 31.5 g/dL (31.0-37.0) 12/22/16 06:05 RDW 16.8 % (11.5-15.5) H 12/22/16 06:05 Plt Count 156 k/uL (150-450) 12/22/16 06:05 Neutrophils % (Manual) 8.0 % 12/22/16 06:05 Lymphocytes % (Manual) 90.0 % 12/22/16 06:05 Monocytes % (Manual) 1.0 % 12/22/16 06:05 Eosinophils % (Manual) 1.0 % 12/22/16 06:05 Neutrophils # (Manual) 7.3 k/uL (1.3-7.7) 12/22/16 06:05 Lymphocytes # (Manual) 82.4 k/uL (1.0-4.8) H 12/22/16 06:05 Monocytes # (Manual) 0.9 k/uL (0-1.0) 12/22/16 06:05 Eosinophils # (Manual) 0.9 k/uL (0-0.7) H 12/22/16 06:05 Nucleated RBCs 0 /100 WBC (0-0) 12/22/16 06:05 Differential Comment 12/22/16 06:05 Manual Slide Review Performed 12/22/16 06:05 Hypochromasia Marked 12/22/16 06:05 Poikilocytosis (manual Present 12/22/16 06:05 Anisocytosis Slight 12/22/16 06:05 PT 13.5 sec (9.0-12.0) H 12/22/16 06:05 INR 1.4 (<1.2) H 12/22/16 06:05 APTT 50.2 sec (22.0-30.0) H 12/22/16 06:05 Sodium 137 mmol/L (137-145) 12/21/16 15:50 Potassium 4.4 mmol/L (3.5-5.1) 12/21/16 15:50 Chloride 101 mmol/L (98-107) 12/21/16 15:50 Carbon Dioxide 24 mmol/L (22-30) 12/21/16 15:50 Anion Gap 12 mmol/L 12/21/16 15:50 BUN 17 mg/dL (9-20) 12/21/16 15:50 Creatinine 1.10 mg/dL (0.66-1.25) 12/21/16 15:50 Est GFR (MDRD) Af Amer >60 (>60 ml/min/1.73 sqM) 12/21/16 15:50 Est GFR (MDRD) Non-Af >60 (>60 ml/min/1.73 sqM) 12/21/16 15:50 Glucose 104 mg/dL (74-99) H 12/21/16 15:50 Plasma Lactic Acid Jason 0.9 mmol/L (0.7-2.0) 12/22/16 06:05 Calcium 9.0 mg/dL (8.4-10.2) 12/21/16 15:50 Total Bilirubin 0.6 mg/dL (0.2-1.3) 12/21/16 15:50 AST 25 U/L (17-59) 12/21/16 15:50 ALT 33 U/L (21-72) 12/21/16 15:50 Alkaline Phosphatase 90 U/L (38-126) 12/21/16 15:50 Total Creatine Kinase 61 U/L (55-170) 12/21/16 15:50 CK-MB (CK-2) 0.7 ng/mL (0.0-2.4) 12/21/16 15:50 CK-MB (CK-2) Rel Index 1.1 12/21/16 15:50 Troponin I 0.021 ng/mL (0.000-0.034) 12/21/16 15:50 Total Protein 5.8 g/dL (6.3-8.2) L 12/21/16 15:50 Albumin 4.0 g/dL (3.5-5.0) 12/21/16 15:50 TSH 1.820 mIU/L (0.465-4.680) 12/22/16 06:05 Free T4 1.00 ng/dL (0.78-2.19) 12/22/16 06:05 Urine Color Yellow 12/21/16 15:50 Urine Appearance Clear (Clear) 12/21/16 15:50 Urine pH 5.0 (5.0-8.0) 12/21/16 15:50 Ur Specific Leiter 1.021 (1.001-1.035) 12/21/16 15:50 Urine Protein 1+ (Negative) H 12/21/16 15:50 Urine Glucose (UA) Negative (Negative) 12/21/16 15:50 Urine Ketones 2+ (Negative) H 12/21/16 15:50 Urine Blood Trace (Negative) H 12/21/16 15:50 Urine Nitrite Negative (Negative) 12/21/16 15:50 Urine Bilirubin Negative (Negative) 12/21/16 15:50 Urine Urobilinogen <2.0 mg/dL (<2.0) 12/21/16 15:50 Ur Leukocyte Esterase Trace (Negative) H 12/21/16 15:50 Urine RBC <1 /hpf (0-5) 12/21/16 15:50 Urine WBC 6 /hpf (0-5) H 12/21/16 15:50 Urine Mucus Moderate /hpf (None) H 12/21/16 15:50 CBC & Chem 7: 12/22/16 06:05 12/21/16 15:50 Labs: Abnormal Lab Results - Last 24 Hours (Table) 12/21/16 12/21/16 12/21/16 Range/Units 15:50 15:50 15:50 WBC 133.1 H* (3.8-10.6) k/uL Hgb (13.0-17.5) gm/dL Hct (39.0-53.0) % RDW 17.1 H (11.5-15.5) % Neutrophils # (Manual) 13.3 H (1.3-7.7) k/uL Lymphocytes # (Manual) 118.5 H (1.0-4.8) k/uL Monocytes # (Manual) 1.3 H (0-1.0) k/uL Eosinophils # (Manual) (0-0.7) k/uL PT 12.1 H (9.0-12.0) sec INR 1.2 H (<1.2) APTT (22.0-30.0) sec Glucose 104 H (74-99) mg/dL Total Protein 5.8 L (6.3-8.2) g/dL Urine Protein (Negative) Urine Ketones (Negative) Urine Blood (Negative) Ur Leukocyte Esterase (Negative) Urine WBC (0-5) /hpf Urine Mucus (None) /hpf 12/21/16 12/22/16 12/22/16 Range/Units 15:50 00:11 06:05 WBC 91.6 H* (3.8-10.6) k/uL Hgb 11.9 L (13.0-17.5) gm/dL Hct 37.7 L (39.0-53.0) % RDW 16.8 H (11.5-15.5) % Neutrophils # (Manual) (1.3-7.7) k/uL Lymphocytes # (Manual) 82.4 H (1.0-4.8) k/uL Monocytes # (Manual) (0-1.0) k/uL Eosinophils # (Manual) 0.9 H (0-0.7) k/uL PT (9.0-12.0) sec INR (<1.2) APTT 46.3 H (22.0-30.0) sec Glucose (74-99) mg/dL Total Protein (6.3-8.2) g/dL Urine Protein 1+ H (Negative) Urine Ketones 2+ H (Negative) Urine Blood Trace H (Negative) Ur Leukocyte Esterase Trace H (Negative) Urine WBC 6 H (0-5) /hpf Urine Mucus Moderate H (None) /hpf 12/22/16 Range/Units 06:05 WBC (3.8-10.6) k/uL Hgb (13.0-17.5) gm/dL Hct (39.0-53.0) % RDW (11.5-15.5) % Neutrophils # (Manual) (1.3-7.7) k/uL Lymphocytes # (Manual) (1.0-4.8) k/uL Monocytes # (Manual) (0-1.0) k/uL Eosinophils # (Manual) (0-0.7) k/uL PT 13.5 H (9.0-12.0) sec INR 1.4 H (<1.2) APTT 50.2 H (22.0-30.0) sec Glucose (74-99) mg/dL Total Protein (6.3-8.2) g/dL Urine Protein (Negative) Urine Ketones (Negative) Urine Blood (Negative) Ur Leukocyte Esterase (Negative) Urine WBC (0-5) /hpf Urine Mucus (None) /hpf Microbiology - Last 24 Hours (Table) 12/21/16 15:50 Urine Culture - Preliminary Urine,Voided Assessment and Plan Plan: This is a 76-year-old male who presents to hospital with history of CLL and signs of sepsis with left basilar infiltrate on chest x-ray and also fungal or possible viral esophagitis. Blood culture is status received and sputum culture is currently on collected. Patient is on Azactam and Levaquin which will be reviewed. Continue supportive care. Further recommendations as patient progresses. The above dictated assessment and findings were discussed with Dr. Rondon. The impression and plan of care have been directed as dictated. Soo Cheney nurse practitioner acting as scribe for Dr. Rondon.
[2016-12-22] MEDS: HEPARIN SODIUM,PORCINE/D5W PMX 25,000 UNIT in DEXTROSE/WATER 1 500ML.BAG IV SCH (15:00)
--- NOTE | 2016-12-22 16:38 | P.CNPUL ---
History of Present Illness Consult date: 12/22/16 Reason for consult: dyspnea History of present illness: A 76-year-old male patient with known history of chronic lymphocytic leukemia who has been followed up by also on an outpatient basis. The patient lives in [place] and he goes to [facility]. The patient's CLL has been essentially stable. His counselor of however the patient did not have any indication for therapy and his been monitored clinically by Marlon tesfaye. He also has COPD. He has seen a director home in [place], and he has undergone a pulmonary function test and he was told that his lung capacities in order of 50% . I'm assuming his FEV1 is in the range of 50%. The patient was given Symbicort 160/4.5, 2 puffs twice daily regarding maintenance therapy for COPD. Denies having any recurrent exacerbations. Denies having any major pulmonary complications from the COPD. He is able to ambulate and perform activities of daily today life without any major difficulties. The patient came into the hospital because of having soreness in his throat and tongue and change in his voice along with some difficulties in swallowing and speech. This started approximately 2-3 ago and progressively got worse. He was also found to have a temperature 11.6 and for that reason he was asked to come in to the hospital by his . He presented with a white cell count of 133. His temperature was over 3.4. He had a heart rate of 100 220. He was found to be in atrial fibrillation with rapid ventricular response without any previous history. Chest x-ray showed limited left basilar pulmonary infiltrates. The patient was started on Cardizem drip. The patient was started on heparin drip. The patient was asked to be seen by cardiology. The pulmonary consultation was also requested due to concern of an underlying pneumonia. The patient converted subsequent sinus rhythm on IV Cardizem that was ultimately discontinued her ovaries still on IV heparin. Echocardiogram showed mild concentric epidural hypertrophy. He has an ejection fraction of 55%. Mild MR and mild TR. No vegetations. On examination, he has significant degree of oropharyngeal thrush. He was given a combination of Levaquin and aztreonam in the emergency department. Review of Systems All systems: negative Constitutional: Denies chills, Denies fever Eyes: denies blurred vision, denies pain Ears, nose, mouth and throat: Denies headache, Denies sore throat Cardiovascular: Denies chest pain, Denies shortness of breath Respiratory: Denies cough Gastrointestinal: Denies abdominal pain, Denies diarrhea, Denies nausea, Denies vomiting Musculoskeletal: Denies myalgias Integumentary: Denies pruritus, Denies rash Neurological: Denies numbness, Denies weakness Psychiatric: Denies anxiety, Denies depression Endocrine: Denies fatigue, Denies weight change Past Medical History Past Medical History: Cancer, Pneumonia, Prostate Disorder, Thyroid Disorder Additional Past Medical History / Comment(s): CHRONIC LYMPHOCYTIC LEUKEMIA, CHRONIC BRONCHITIS/COPD History of Any Multi-Drug Resistant Organisms: None Reported Additional Past Surgical History / Comment(s): THYROID SURGERY Past Anesthesia/Blood Transfusion Reactions: Blood Transfusion Reaction Additional Past Anesthesia/Blood Transfusion Reaction / Comment(s): GAVE BENADRYL AND RAN SLOW. Has had multiple transfusuions and has a reaction every time Past Psychological History: No Psychological Hx Reported Smoking Status: Former smoker Additional Past Alcohol Use History / Comment(s): Patient was only a smoker for 5-6 years in the 1960s. No marijuana or street drug use. He and his winter in [place] and return to [place] for the oates. They have a [facility] terrier without any other animal exposures he currently lives on the [place]. Patient does normal yardwork but no extensive gardening or other hobbies. - Past Family History Father Family Medical History: Dementia Mother Family Medical History: No Reported History Medications and Allergies Home Medications Medication Instructions Recorded Confirmed Type Budesonide/Formoterol Fumarate 2 puff INHALATION RT-BID 12/21/16 12/21/16 History [Symbicort 160-4.5 Mcg Inhaler] Levothyroxine Sodium [Synthroid] 125 mcg PO DAILY 12/21/16 12/21/16 History Multivitamins, Thera [Multivitamin 1 tab PO DAILY 12/21/16 12/21/16 History (formulary)] Allergies Allergy/AdvReac Type Severity Reaction Status Date / Time amoxicillin Allergy Rash/Hives Verified 12/21/16 16:10 Physical Exam Vitals: Vital Signs Temp Pulse Pulse Resp BP BP Pulse Ox 12/22/16 15:23 100.2 F H 94 24 131/66 91 L 12/22/16 14:32 101.8 F H 12/22/16 11:40 99.5 F 92 20 153/66 94 L 07/17/17 08:20 99.4 F 76 16 123/58 91 L 12/22/16 04:00 102.0 F H 92 20 133/59 92 L 12/22/16 00:00 99.9 F H 94 20 126/61 94 L 12/21/16 20:00 98.5 F 94 20 122/58 94 L 12/21/16 19:11 134 H 110/56 12/21/16 18:43 100.2 F H 133 H 20 115/78 94 L 12/21/16 18:19 98.4 F 140 H 16 114/67 94 L 12/21/16 18:00 134 H 12/21/16 17:31 112 H 20 147/84 91 L 12/21/16 16:38 100.6 F H 120 H 20 136/77 92 L Intake and Output 12/22/16 12/22/16 12/22/16 06:59 14:59 22:59 Intake Total 070.442 9124 332.943 Output Total 306 319 7581 Balance 26.667 1074 -667.057 Intake: IV 1174 ACETAMINOPHEN IV (For NPO 50 ) 1,000 mg In Empty Bag 1 bag @ 400 mls/hr IVPB Q8HR PRN Rx#:[id number] Aztreonam 2 gm In Sodium 100 Chloride 0.9% 100 ml @ 100 mls/hr IVPB Q8HR [facility] Rx#:[id number] Diltiazem 125 mg In 40 Sodium Chloride 0.9% 100 ml @ 5 MG/HR 5 mls/hr IV .Q24H [facility] Rx#:[id number] Heparin Sodium,Porcine/ 184 D5w Pmx 25,000 unit In Dextrose/Water 1 500ml. bag @ 10.5 UNITS/KG/HR 20 mls/hr IV .Q24H [facility] Rx#: [id number] Sodium Chloride 0.9% 1, 800 000 ml @ 100 mls/hr IV . Q10H [facility] Rx#:[id number] Intake, IV Titration 126.667 332.943 Amount Heparin Sodium,Porcine/ 126.667 332.943 D5w Pmx 25,000 unit In Dextrose/Water 1 500ml. bag @ 10.5 UNITS/KG/HR 20 mls/hr IV .Q24H [facility] Rx#: [id number] Output: Urine 247 387 9248 Other: Voiding Method Urinal Urinal # Voids 1 Weight 107 kg The patient appeared well nourished and normally developed. Vital signs as documented. Head exam is unremarkable. No scleral icterus or corneal arcus noted. Neck is without jugular venous distension, thyromegaly, or carotid bruits. Carotid upstrokes are brisk bilaterally. The patient has extensive oropharyngeal thrush. Lungs are events breath sounds bilaterally especially lung bases.. Cardiac exam reveals the PMI to be normally sized and situated. Rhythm is regular. First and second heart sounds normal. No murmurs, rubs or gallops. Abdominal exam reveals normal bowel sounds, no masses, no organomegaly and no aortic enlargement. Extremities are nonedematous and both femoral and pedal pulses are normal. Results - Laboratory Findings CBC and BMP: 12/22/16 06:05 12/21/16 15:50 PT/INR, D-dimer PT 13.5 sec (9.0-12.0) H 12/22/16 06:05 INR 1.4 (<1.2) H 12/22/16 06:05 Abnormal lab findings: Abnormal Labs 12/21/16 12/21/16 12/21/16 15:50 15:50 15:50 WBC 133.1 H* Hgb Hct RDW 17.1 H Neutrophils # (Manual) 13.3 H Lymphocytes # (Manual) 118.5 H Monocytes # (Manual) 1.3 H Eosinophils # (Manual) PT 12.1 H INR 1.2 H APTT Glucose 104 H Total Protein 5.8 L Urine Protein Urine Ketones Urine Blood Ur Leukocyte Esterase Urine WBC Urine Mucus 12/21/16 12/22/16 12/22/16 15:50 00:11 06:05 WBC 91.6 H* Hgb 11.9 L Hct 37.7 L RDW 16.8 H Neutrophils # (Manual) Lymphocytes # (Manual) 82.4 H Monocytes # (Manual) Eosinophils # (Manual) 0.9 H PT INR APTT 46.3 H Glucose Total Protein Urine Protein 1+ H Urine Ketones 2+ H Urine Blood Trace H Ur Leukocyte Esterase Trace H Urine WBC 6 H Urine Mucus Moderate H 12/22/16 06:05 WBC Hgb Hct RDW Neutrophils # (Manual) Lymphocytes # (Manual) Monocytes # (Manual) Eosinophils # (Manual) PT 13.5 H INR 1.4 H APTT 50.2 H Glucose Total Protein Urine Protein Urine Ketones Urine Blood Ur Leukocyte Esterase Urine WBC Urine Mucus - Diagnostic Findings Chest x-ray: image reviewed Assessment and Plan Plan: Assessment 1 acute febrile illness in a 76-year-old be patient with chronic lymphocytic leukemia. The patient has oropharyngeal thrush. There is also concern of an underlying left lower lobe pneumonia. Currently on a combination of Levaquin and Diflucan. As I can was discontinued 2 acute fever, and the patient continues to have on and off fever with a T-max of 103.4 from yesterday and 1.8 today. Rule out underlying septicemia secondary to above. 3 COPD with probable FEV1 of 50% of predicted at baseline maintained on Symbicort on outpatient basis 4 chronic lymphocytic leukemia 5 new-onset atrial fibrillation with rapid ventricular response, currently rhythm is back to sinus and the patient is still on IV heparin he had the patient is off the Cardizem drip 6 hypothyroidism currently on thyroid hormone replacement mild levels are therapeutic at this point Plan Sputum Gram stain and culture. Blood cultures. Continue Diflucan and Levaquin. Resume outpatient medication. May need to have her is baseline immunoglobulin levels checked it later stage to assess the competency of his underlying immune system. Hemodynamically stable. We'll continue to follow. ID consult. I would anticipate improvement and recovery.
[2016-12-22] MEDS: ACYCLOVIR SODIUM 500 MG in SODIUM CHLORIDE 0.9% 100 ML IVPB SCH (17:55)
[2016-12-22] MEDS: MAG HYDROX/AL HYDROX/SIMETH 30 ML, LIDOCAINE VISCOUS 30 ML, diphenhydrAMINE ELIXIR 75 M... PO SCH ×8 (17:58→22:47)
[2016-12-22] MEDS: LEVOFLOXACIN 750MG-D5W PMX 750 MG in DEXTROSE/WATER 1 150ML.BAG IVPB SCH (17:58)
--- NOTE | 2016-12-22 18:54 | P.HPIM ---
History of Present Illness H&P Date: 12/22/16 Chief Complaint: fever Mr. Lopez is a very pleasant male pt of Dr. Rucker who has CLL diagnosed 2007 and been on no treatment for the same, pt travels to [facility] annually and is monitored both here and there. Pt was just seen in October with f/ u sched for Mar just prior to going back to [facility]. His most recent CT shower a 1cm pulmonary nodule which is going to monitored. Pt was hospitalized in 2015 in [place] for pneumonia, last IVIG was in [place] in 2014 denies hospitalization or illness since. Pt states last Thursday he had a sore on his tongue, that progressed over the next few days to include his throat and his stomach, fever started about 2 days ago and he then was unable to swallow, he is NPO after swallow evaluation, all meds converted to IV, he has been seen by Cardiology for a-fib,he is on heparin drip at this time, thyroid studies have been ordered, he has been seen by Pulmonary and is on abx and supportive respiratory medications. ID consulted and case has been discussed briefly with Dr. Rondon. Pt today states intermittent fevers, he does not feel well, tired, weak, he is coughing up copious amts of brown sputum, denies chest pain or feeling palpitations, no abd pain, bloating, changes in bowel or bladder habits, no ill contacts. Review of Systems All systems: negative Constitutional: Reports as per HPI Past Medical History Past Medical History: Cancer, Pneumonia, Prostate Disorder, Thyroid Disorder Additional Past Medical History / Comment(s): CHRONIC LYMPHOCYTIC LEUKEMIA, CHRONIC BRONCHITIS/COPD History of Any Multi-Drug Resistant Organisms: None Reported Additional Past Surgical History / Comment(s): THYROID SURGERY Past Anesthesia/Blood Transfusion Reactions: Blood Transfusion Reaction Additional Past Anesthesia/Blood Transfusion Reaction / Comment(s): GAVE BENADRYL AND RAN SLOW. Has had multiple transfusuions and has a reaction every time Past Psychological History: No Psychological Hx Reported Smoking Status: Former smoker Additional Past Alcohol Use History / Comment(s): Patient was only a smoker for 5-6 years in the 1960s. No marijuana or street drug use. He and his winter in [place] and return to [place] for the oates. They have a Jaurequi terrier without any other animal exposures he currently lives on the [place]. Patient does normal yardwork but no extensive gardening or other hobbies. - Past Family History Father Family Medical History: Dementia Mother Family Medical History: No Reported History Medications and Allergies Home Medications Medication Instructions Recorded Confirmed Type Budesonide/Formoterol Fumarate 2 puff INHALATION RT-BID 12/21/16 12/21/16 History [Symbicort 160-4.5 Mcg Inhaler] Levothyroxine Sodium [Synthroid] 125 mcg PO DAILY 12/21/16 12/21/16 History Multivitamins, Thera [Multivitamin 1 tab PO DAILY 12/21/16 12/21/16 History (formulary)] Allergies Allergy/AdvReac Type Severity Reaction Status Date / Time amoxicillin Allergy Rash/Hives Verified 12/21/16 16:10 Physical Exam Vitals: Vital Signs Temp Pulse Pulse Resp BP BP Pulse Ox 12/22/16 15:23 100.2 F H 94 24 131/66 91 L 12/22/16 14:32 101.8 F H 12/22/16 11:40 99.5 F 92 20 153/66 94 L 12/22/16 08:20 99.4 F 76 16 123/58 91 L 12/22/16 04:00 102.0 F H 92 20 133/59 92 L 12/22/16 00:00 99.9 F H 94 20 126/61 94 L 12/21/16 20:00 98.5 F 94 20 122/58 94 L 12/21/16 19:11 134 H 110/56 12/21/16 18:43 100.2 F H 133 H 20 115/78 94 L Intake and Output 12/22/16 12/22/16 12/22/16 06:59 14:59 22:59 Intake Total 149.421 9925 332.943 Output Total 324 395 4898 Balance 26.667 1074 -817.057 Intake: IV 1174 ACETAMINOPHEN IV (For NPO 50 ) 1,000 mg In Empty Bag 1 bag @ 400 mls/hr IVPB Q8HR PRN Rx#:[id number] Aztreonam 2 gm In Sodium 100 Chloride 0.9% 100 ml @ 100 mls/hr IVPB Q8HR [facility] Rx#:[id number] Diltiazem 125 mg In 40 Sodium Chloride 0.9% 100 ml @ 5 MG/HR 5 mls/hr IV .Q24H [facility] Rx#:[id number] Heparin Sodium,Porcine/ 184 D5w Pmx 25,000 unit In Dextrose/Water 1 500ml. bag @ 10.5 UNITS/KG/HR 20 mls/hr IV .Q24H [facility] Rx#: [id number] Sodium Chloride 0.9% 1, 800 000 ml @ 100 mls/hr IV . Q10H [facility] Rx#:[id number] Intake, IV Titration 126.667 332.943 Amount Heparin Sodium,Porcine/ 126.667 332.943 D5w Pmx 25,000 unit In Dextrose/Water 1 500ml. bag @ 10.5 UNITS/KG/HR 20 mls/hr IV .Q24H [facility] Rx#: [id number] Output: Urine 546 762 4836 Other: Voiding Method Urinal Urinal # Voids 1 Weight 107 kg - Constitutional General appearance: average body habitus, cooperative, mild distress - EENT scattered oral mucosal ulcerations Eyes: anicteric sclerae, normal appearance ENT: pharyngeal erythema, thrush - Neck Neck: no lymphadenopathy - Respiratory Respiratory: bilateral: CTA, diminished - Cardiovascular Heart sounds: normal: S1, S2 leg Peripheral Edema: bilateral: Trace, Pitting - Gastrointestinal General gastrointestinal: no absent bowel sounds, no decreased bowel sounds, no distended, no hepatomegaly, no hyperactive bowel sounds, normal bowel sounds, no organomegaly, no rigid, no scaphoid, soft, no splenomegaly, no tenderness, no umbilical hernia, no ventral hernia - Integumentary Integumentary: normal - Neurologic Neurologic: CNII-XII intact - Musculoskeletal Musculoskeletal: strength equal bilaterally - Psychiatric Psychiatric: A&O x's 3, appropriate affect, intact judgment & insight Results CBC & Chem 7: 12/22/16 06:05 12/21/16 15:50 Labs: Abnormal Lab Results - Last 24 Hours (Table) 12/22/16 12/22/16 12/22/16 Range/Units 00:11 06:05 06:05 WBC 91.6 H* (3.8-10.6) k/uL Hgb 11.9 L (13.0-17.5) gm/dL Hct 37.7 L (39.0-53.0) % RDW 16.8 H (11.5-15.5) % Lymphocytes # (Manual) 82.4 H (1.0-4.8) k/uL Eosinophils # (Manual) 0.9 H (0-0.7) k/uL PT 13.5 H (9.0-12.0) sec INR 1.4 H (<1.2) APTT 46.3 H 50.2 H (22.0-30.0) sec Microbiology - Last 24 Hours (Table) 12/21/16 15:50 Blood Culture - Preliminary Blood No Growth after 24 hours 12/21/16 15:50 Urine Culture - Preliminary Urine,Voided Chest x-ray: report reviewed Thrombosis Risk Factor Assmnt - DVT/VTE Prophylaxis DVT/VTE Prophylaxis: Contraindicated - See note (pt on heparin drip for a-fib) - Choose All That Apply Each Risk Factor Represents 3 Points: Age 75 years or older Thrombosis Risk Factor Assessment Total Risk Factor Score: 3 Thrombosis Risk Factor Assessment Level: Moderate Risk Assessment and Plan (1) Sepsis Narrative/Plan: Pt meets sepsis criteria with fever, tachycardia and increased respiratory rate in an immunocompromised pt. Pt admitted, pancultures pending, bax, antivirals ordered, Immunoglobulin levels ordered. Consulting Physicians treatment plans appreciated. Status: Acute (2) Mucositis Narrative/Plan: Swallow eval report reviewed, pt NPO for now, reevaluate in AM, PO meds all converted to IV Status: Acute (3) CLL (chronic lymphocytic leukemia) Narrative/Plan: Pt has been on monitoring with a WBC typically in the 130's. Treat underlying infection and pt will continue on monitoring. Status: Chronic (4) Hypothyroidism Narrative/Plan: PO meds converted to IV for NPO status Status: Chronic (5) COPD (chronic obstructive pulmonary disease) Narrative/Plan: Pulmonary following Status: Chronic
--- NOTE | 2016-12-22 19:11 | P.CON ---
Consult Note - . Consult date: 12/22/16 Assessment/Plan:: This is a 76-year-old male who has a past medical history significant for chronic lymphocytic leukemia not currently on treatment and follows with Dr. Rucker. History is obtained from him and his and they state that he had sores side of his tongue that started on Thursday. By his throat started to feel sore and he was eating and drinking okay at that point. Later though he noticed that he had felt like pills were getting stuck in his throat. By Thursday his throat was really sore and he had a very bad night on Thursday. On Thursday he was sleeping all day and his temperature was 101.6 and patient's made him come into the hospital for evaluation. He presented with a white count of 133 with repeat at 91.6, temperature 103.4 with heart rate running 100-120. Patient was found to be in atrial fibrillation with rapid ventricular response with no previous history. Chest x-ray showed a new mild left basilar infiltrate. Patient was admitted to the selective care unit with Cardizem drip and heparin drip and consult placed with cardiology and pulmonary medicine as well. Patient does state he last saw Dr. Rucker one month ago and his white count is usually 300. He denies having any nausea vomiting diarrhea or dysuria. His last antibiotics were the middle of October with azithromycin and prednisone. Patient is not on any current medication for CLL and he has been very healthy for 2 years according to his . He has a Chronic cough with sputum production but no other symptoms. Temperature max as morning was 102. The patient has been seen by cardiology and continued IV heparin. Patient converted to a sinus rhythm and IV Cardizem was discontinued. Echocardiogram showed mild concentric left ventricular hypertrophy, EF 50-55% LAD dilated at 29-33, mild mitral regurgitation mild tricuspid regurgitation. No mention of vegetation. Patient was seen by speech therapy and has been made nothing by mouth with plan for reassessment in 24 hours. Please see the consult note as dictated by nurse practitioner Mrs. Soo Cheney. Pleasant gentleman who is really quite uncomfortable. He relates that he had a great difficulty trying to swallow a Tylenol pill that eventually improved. He is now had improvement of his atrial fibrillation however his mouth and swallowing are still very problematic. He has been seen by his oncologist. We' ll add in cool solution at this time. We'll check for PCR for HSV 1 and 2. Also possible that this is a fungal process. Antiviral and antifungal therapies are started while workup is in process. With concerns for pneumonia Levaquin has been added and is reasonable for now until we have further data. IgG level is being requested and supplement as needed. His fever has continued and cultures arm process which will further help direct antibiotic therapy. The ANC level is at 7.3 patient is not neutropenic. Agree with evaluation, assessment and plan as dictated by nurse practitioner Mrs. Soo Cheney.
[2016-12-22] MEDS ORDERED: ACETAMINOPHEN IV (For NPO) 1,000 MG in EMPTY BAG 1 BAG IVPB PRN (23:03)
[2016-12-23] MEDS: ACYCLOVIR SODIUM 500 MG in SODIUM CHLORIDE 0.9% 100 ML IVPB SCH ×3 (02:45→18:04)
[2016-12-23] MEDS: ACETAMINOPHEN IV (For NPO) 1,000 MG in EMPTY BAG 1 BAG IVPB PRN ×4 (06:06→23:13)
[2016-12-23] MEDS: LEVOTHYROXINE IVP 100 MCG/5 ML VIAL IV SCH (06:45)
[2016-12-23 07:18] LABS: INR 1.5 (<1.2); Partial Thromboplastin Time 67.5 sec (22.0-30.0); Prothrombin Time 14.6 sec (9.0-12.0)
[2016-12-23 07:30] LABS: Anisocytosis Slight; Aty Lym Flag Marked; CH 26.2; CHCM 31.1; HCT 38.9 % (39.0-53.0); HDW 2.94; HGB 12.6 gm/dL (13.0-17.5); Hypochromasia Moderate; MCH 27.4 pg (25.0-35.0); MCHC 32.3 g/dL (31.0-37.0); MCV 84.7 fL (80.0-100.0); Mean Platelet Volume 7.4; RBC 4.59 m/uL (4.30-5.90); RDW 16.7 % (11.5-15.5); WBC (Perox) 74.53
[2016-12-23 07:34] LABS: WBC 76.8 k/uL (3.8-10.6)
[2016-12-23] MEDS: MULTIVITAMINS, THERA 1 EACH TAB PO SCH (07:36)
[2016-12-23] MEDS: SODIUM CHLORIDE 0.9% 1,000 ML IV SCH ×2 (07:38→18:18)
[2016-12-23] MEDS: MAG HYDROX/AL HYDROX/SIMETH 30 ML, LIDOCAINE VISCOUS 30 ML, diphenhydrAMINE ELIXIR 75 M... PO SCH ×16 (07:57→20:17)
[2016-12-23] MEDS: SYMBICORT 160-4.5 MCG INHALER INHALATION SCH ×2 (08:55→19:01)
[2016-12-23] MEDS: HEPARIN SODIUM,PORCINE/D5W PMX 25,000 UNIT in DEXTROSE/WATER 1 500ML.BAG IV SCH (09:26)
[2016-12-23 10:37] LABS: Add Differential Manual Differential
[2016-12-23 10:38] LABS: Manual Review Performed; Nucleated Red Blood Cells 0 /100 WBC (0-0); Total Cells Counted 100
[2016-12-23] MEDS: MICAFUNGIN 100 MG in SODIUM CHLORIDE 0.9% 100 ML IVPB SCH (11:19)
--- NOTE | 2016-12-23 11:56 | P.PN ---
Subjective A 76-year-old male patient with known history of chronic lymphocytic leukemia who has been followed up by also on an outpatient basis. The patient lives in [place] and he goes to [facility]. The patient's CLL has been essentially stable. His counselor of however the patient did not have any indication for therapy and his been monitored clinically by Marlon tesfaye. He also has COPD. He has seen a gasoline truck crane operator in [place], and he has undergone a pulmonary function test and he was told that his lung capacities in order of 50% . I'm assuming his FEV1 is in the range of 50%. The patient was given Symbicort 160/4.5, 2 puffs twice daily regarding maintenance therapy for COPD. Denies having any recurrent exacerbations. Denies having any major pulmonary complications from the COPD. He is able to ambulate and perform activities of daily today life without any major difficulties. The patient came into the hospital because of having soreness in his throat and tongue and change in his voice along with some difficulties in swallowing and speech. This started approximately 2-3 ago and progressively got worse. He was also found to have a temperature 11.6 and for that reason he was asked to come in to the hospital by his . He presented with a white cell count of 133. His temperature was over 3.4. He had a heart rate of 100 220. He was found to be in atrial fibrillation with rapid ventricular response without any previous history. Chest x-ray showed limited left basilar pulmonary infiltrates. The patient was started on Cardizem drip. The patient was started on heparin drip. The patient was asked to be seen by cardiology. The pulmonary consultation was also requested due to concern of an underlying pneumonia. The patient converted subsequent sinus rhythm on IV Cardizem that was ultimately discontinued her ovaries still on IV heparin. Echocardiogram showed mild concentric epidural hypertrophy. He has an ejection fraction of 55%. Mild MR and mild TR. No vegetations. On examination, he has significant degree of oropharyngeal thrush. He was given a combination of Levaquin and aztreonam in the emergency department. On 12/23/2016 the patient is being seen in follow-up. The patient still having fever and he was febrile on and off during the day. His throat remains sore and there is some white cottage cheese spots in the posterior oropharynx suggestive underlying oropharyngeal candidiasis. At the same time the patient has developed some vesicular eruption over his face and torso. He was seen by infectious disease. He was kept on Levaquin. Diflucan was discontinued today and micafungin was started. Cultures of been all negative. Hemodynamically stable. White cell count has dropped. No other significant events overnight. Note that these vesicular lesions are somewhat nonpainful and nonpruritic. Mainly involving the face and to lesser extent the trunk. Objective - Vital Signs Vital signs: Vital Signs Temp 101.3 F H 12/23/16 11:26 Pulse 128 H 12/23/16 11:26 Resp 20 12/23/16 11:26 BP 123/60 12/23/16 11:26 Pulse Ox 94 L 12/23/16 11:26 Intake & Output 12/22/16 12/23/16 12/23/16 18:59 06:59 18:59 Intake Total 8355.300 2714 438.898 Output Total 1250 200 900 Balance 689.682 4763 -461.102 Weight 101.5 kg Intake: IV 1174 2680 ACETAMINOPHEN IV (For NPO 50 800 ) 1,000 mg In Empty Bag 1 bag @ 400 mls/hr IVPB Q8HR PRN Rx#:[id number] Aztreonam 2 gm In Sodium 100 200 Chloride 0.9% 100 ml @ 100 mls/hr IVPB Q8HR [facility] Rx#:[id number] Diltiazem 125 mg In 40 Sodium Chloride 0.9% 100 ml @ 5 MG/HR 5 mls/hr IV .Q24H [facility] Rx#:[id number] Heparin Sodium,Porcine/ 184 240 D5w Pmx 25,000 unit In Dextrose/Water 1 500ml. bag @ 10.5 UNITS/KG/HR 20 mls/hr IV .Q24H [facility] Rx#: [id number] Sodium Chloride 0.9% 1, 800 1440 000 ml @ 100 mls/hr IV . Q10H [facility] Rx#:[id number] Intake, IV Titration 332.943 438.898 Amount Heparin Sodium,Porcine/ 332.943 438.898 D5w Pmx 25,000 unit In Dextrose/Water 1 500ml. bag @ 10.5 UNITS/KG/HR 20 mls/hr IV .Q24H [facility] Rx#: [id number] Output: Urine 1250 200 900 Other: Voiding Method Urinal Urinal Urinal # Voids 1 - Exam The patient appeared well nourished and normally developed. Vital signs as documented. Head exam is unremarkable. No scleral icterus or corneal arcus noted. Neck is without jugular venous distension, thyromegaly, or carotid bruits. Carotid upstrokes are brisk bilaterally. The patient has extensive oropharyngeal thrush. Lungs are events breath sounds bilaterally especially lung bases.. Cardiac exam reveals the PMI to be normally sized and situated. Rhythm is regular. First and second heart sounds normal. No murmurs, rubs or gallops. Abdominal exam reveals normal bowel sounds, no masses, no organomegaly and no aortic enlargement. Extremities are nonedematous and both femoral and pedal pulses are normal. Patient has papular vesicular lesions over his face and trunk. No open lesions or sores. No active drainage from these lesions.. this is minimally over the trunk and mainly involving the face. - Labs CBC & Chem 7: 12/23/16 06:44 12/21/16 15:50 Labs: Abnormal Lab Results - Last 24 Hours (Table) 12/23/16 12/23/16 Range/Units 06:44 06:44 WBC 76.8 H* (3.8-10.6) k/uL Hgb 12.6 L (13.0-17.5) gm/dL Hct 38.9 L (39.0-53.0) % RDW 16.7 H (11.5-15.5) % Plt Count 144 L (150-450) k/uL Lymphocytes # (Manual) 69.9 H (1.0-4.8) k/uL PT 14.6 H (9.0-12.0) sec INR 1.5 H (<1.2) APTT 67.5 H (22.0-30.0) sec Microbiology - Last 24 Hours (Table) 12/21/16 15:50 Urine Culture - Final Urine,Voided 12/21/16 16:29 Blood Culture - Preliminary Blood No Growth after 24 hours 12/21/16 15:50 Blood Culture - Preliminary Blood No Growth after 24 hours Assessment and Plan Plan: Assessment 1 acute febrile illness in a 76-year-old be patient with chronic lymphocytic leukemia. The patient has oropharyngeal thrush. The patient also has a vesicular eruption that has evolved over the past 24 hours. Exact etiology is not clear. Doubt disseminated herpetic lesions. Chickenpox is less likely. Cutaneous involvement with CLL needs to be considered. Paraneoplastic is another consideration. Disseminated fungal anemia is less likely. 2 acute fever, and the patient continues to have on and off fever with a T-max of 103.4 from yesterday 3 COPD with probable FEV1 of 50% of predicted at baseline maintained on Symbicort on outpatient basis 4 chronic lymphocytic leukemia 5 new-onset atrial fibrillation with rapid ventricular response, currently rhythm is back to sinus and the patient is still on IV heparin he had the patient is off the Cardizem drip 6 hypothyroidism currently on thyroid hormone replacement mild levels are therapeutic at this point Plan Consulted infectious disease. Consult with dermatology. Continue same antibiotic coverage which included a combination micafungin and Levaquin. Monitor fever pattern. We'll continue to follow.
[2016-12-23] MEDS ORDERED: IOHEXOL 350 MG/ML 25 ML BOTTLE (ORAL USE) PO PRN (12:31)
[2016-12-23] MEDS ORDERED: RX INFO: IV CONTRAST WAS GIVEN 1 EACH MISC MISCELLANE PRN (12:31)
--- NOTE | 2016-12-23 12:35 | P.PN ---
Subjective Principal diagnosis: fever Pt seen today in follow up, he has ongoing fevers, feels weak and tired, he thinks his mouth may feel a little better today, his cough is still productive for brown sputum, denies hemoptysis, denies changes in bowel or bladder habits, he is still getting up to the bathroom with assistance. Objective - Vital Signs Vital signs: Vital Signs Temp 99.6 F 12/23/16 09:31 Pulse 132 H 12/23/16 07:54 Resp 20 12/23/16 08:00 BP 121/62 12/23/16 07:54 Pulse Ox 92 L 12/23/16 08:58 Intake & Output 12/22/16 12/23/16 12/23/16 18:59 06:59 18:59 Intake Total 0768.678 8267 438.898 Output Total 1250 200 700 Balance 000.932 2928 -261.102 Weight 101.5 kg Intake: IV 1174 2680 ACETAMINOPHEN IV (For NPO 50 800 ) 1,000 mg In Empty Bag 1 bag @ 400 mls/hr IVPB Q8HR PRN Rx#:[id number] Aztreonam 2 gm In Sodium 100 200 Chloride 0.9% 100 ml @ 100 mls/hr IVPB Q8HR [facility] Rx#:[id number] Diltiazem 125 mg In 40 Sodium Chloride 0.9% 100 ml @ 5 MG/HR 5 mls/hr IV .Q24H [facility] Rx#:[id number] Heparin Sodium,Porcine/ 184 240 D5w Pmx 25,000 unit In Dextrose/Water 1 500ml. bag @ 10.5 UNITS/KG/HR 20 mls/hr IV .Q24H [facility] Rx#: [id number] Sodium Chloride 0.9% 1, 800 1440 000 ml @ 100 mls/hr IV . Q10H [facility] Rx#:[id number] Intake, IV Titration 332.943 438.898 Amount Heparin Sodium,Porcine/ 332.943 438.898 D5w Pmx 25,000 unit In Dextrose/Water 1 500ml. bag @ 10.5 UNITS/KG/HR 20 mls/hr IV .Q24H [facility] Rx#: [id number] Output: Urine 1250 200 700 Other: Voiding Method Urinal Urinal Urinal # Voids 1 - Constitutional General appearance: Present: average body habitus, mild distress - EENT EENT Comment(s): multiple ulcerations on tongue and oral mucus membranes Eyes: Present: anicteric sclerae - Respiratory Respiratory: bilateral: rhonchi - Cardiovascular Heart sounds: normal: S1, S2 Abnormal Heart Sounds: Present: systolic murmur - Peripheral edema leg Peripheral Edema: bilateral: Trace - Gastrointestinal General gastrointestinal: Present: normal bowel sounds, soft - Integumentary Integumentary Comment(s): < dozen red papules on face/neck area, no drainage - Neurologic Neurologic: Present: CNII-XII intact - Musculoskeletal Musculoskeletal: Present: generalized weakness - Psychiatric Psychiatric Comment(s): Pt is very tired and anxious Psychiatric: Present: A&O x's 3, appropriate affect, intact judgment & insight - Labs CBC & Chem 7: 12/23/16 06:44 12/21/16 15:50 Labs: Abnormal Lab Results - Last 24 Hours (Table) 12/23/16 12/23/16 Range/Units 06:44 06:44 WBC 76.8 H* (3.8-10.6) k/uL Hgb 12.6 L (13.0-17.5) gm/dL Hct 38.9 L (39.0-53.0) % RDW 16.7 H (11.5-15.5) % Plt Count 144 L (150-450) k/uL Lymphocytes # (Manual) 69.9 H (1.0-4.8) k/uL PT 14.6 H (9.0-12.0) sec INR 1.5 H (<1.2) APTT 67.5 H (22.0-30.0) sec Microbiology - Last 24 Hours (Table) 12/21/16 15:50 Urine Culture - Final Urine,Voided 12/21/16 16:29 Blood Culture - Preliminary Blood No Growth after 24 hours 12/21/16 15:50 Blood Culture - Preliminary Blood No Growth after 24 hours Assessment and Plan (1) Sepsis Narrative/Plan: Pt continues to have fever, T max 104.6F. He is on antibiotics and antiviral medications. Dr. Rondon is following. Dr. Rucker has ordered CT CAP for fever of unknown origin. Immunoglobulin panel was cancelled, spoke with lab and reordered STAT, should have results by this afternoon. Status: Acute (2) Mucositis Narrative/Plan: Stable, pt states a little relief today, cont supportive meds. Speech therapy has reevaluated pt today and wants to continue NPO for now. Cont IV fluids Status: Acute (3) CLL (chronic lymphocytic leukemia) Narrative/Plan: WBC is monitored, no acute intervention. Status: Chronic (4) Hypothyroidism Narrative/Plan: Cont current meds Status: Chronic (5) COPD (chronic obstructive pulmonary disease) Narrative/Plan: Pulmonary following Status: Chronic (6) Atrial fibrillation Narrative/Plan: Cardiology following, pt is on heparin drip Status: Acute
--- NOTE | 2016-12-23 12:49 | P.PN ---
Subjective Real gentleman with a history of CLL who presented to the emergency department with complaints of fever with associated sore throat, sinus congestion and cough with yellow sputum. Chest x-ray on admission showed a mild left basilar infiltrate. Patient was found to be having episodes of paroxysmal atrial fibrillation with rapid ventricular response, initially was on Cardizem drip which has been discontinued. Patient did have another episode of paroxysmal atrial fibrillation through the night. Patient has been nothing by mouth due to difficulty swallowing secondary to sore throat, sores. Upon examination patient sitting up at the site of the bed. He is febrile at this time. He denies complaints of palpitations or feeling his heart racing at any time. He denies complaints of chest discomfort or dizziness. He's had no syncope and denies complaint of edema. He continues to complain of sore throat , sinus congestion and a cough. He has also been found to be developing skin sores. Patient is being followed by oncology as well as infectious disease. 2- D echo with Doppler was completed yesterday showed low normal LV systolic function with ejection fraction between 50-55% with mild MR and mild TR. Patient's thyroid function studies are normal with a TSH of 1.820 and a free T4 of 1.00. Objective - Vital Signs Vital signs: Vital Signs Temp 101.3 F H 12/23/16 11:26 Pulse 128 H 12/23/16 11:26 Resp 20 12/23/16 11:26 BP 123/60 12/23/16 11:26 Pulse Ox 94 L 12/23/16 11:26 Intake & Output 12/22/16 12/23/16 12/23/16 18:59 06:59 18:59 Intake Total 9667.644 5088 438.898 Output Total 1250 200 900 Balance 232.117 1925 -461.102 Weight 101.5 kg Intake: IV 1174 2680 ACETAMINOPHEN IV (For NPO 50 800 ) 1,000 mg In Empty Bag 1 bag @ 400 mls/hr IVPB Q8HR PRN Rx#:[id number] Aztreonam 2 gm In Sodium 100 200 Chloride 0.9% 100 ml @ 100 mls/hr IVPB Q8HR [facility] Rx#:[id number] Diltiazem 125 mg In 40 Sodium Chloride 0.9% 100 ml @ 5 MG/HR 5 mls/hr IV .Q24H [facility] Rx#:[id number] Heparin Sodium,Porcine/ 184 240 D5w Pmx 25,000 unit In Dextrose/Water 1 500ml. bag @ 10.5 UNITS/KG/HR 20 mls/hr IV .Q24H [facility] Rx#: [id number] Sodium Chloride 0.9% 1, 800 1440 000 ml @ 100 mls/hr IV . Q10H [facility] Rx#:[id number] Intake, IV Titration 332.943 438.898 Amount Heparin Sodium,Porcine/ 332.943 438.898 D5w Pmx 25,000 unit In Dextrose/Water 1 500ml. bag @ 10.5 UNITS/KG/HR 20 mls/hr IV .Q24H [facility] Rx#: [id number] Output: Urine 1250 200 900 Other: Voiding Method Urinal Urinal Urinal # Voids 1 - Exam PHYSICAL EXAMINATION: HEENT: Head is atraumatic, normocephalic. Pupils equal, round. Neck is supple. There is no elevated jugular venous pressure. HEART EXAMINATION: Heart sounds regular, S1 and S2 normal. No murmur or gallop heard. CHEST EXAMINATION: Lungs reveal coarse expiratory wheezing throughout. No chest wall tenderness is noted on palpation or with deep breathing. ABDOMEN: Soft, nontender. Bowel sounds are heard. No organomegaly noted. EXTREMITIES: 2+ peripheral pulses with no evidence of peripheral edema and no calf tenderness noted. NEUROLOGIC patient is awake, alert and oriented x3. . - Labs CBC & Chem 7: 12/23/16 06:44 12/21/16 15:50 Labs: Abnormal Lab Results - Last 24 Hours (Table) 12/23/16 12/23/16 Range/Units 06:44 06:44 WBC 76.8 H* (3.8-10.6) k/uL Hgb 12.6 L (13.0-17.5) gm/dL Hct 38.9 L (39.0-53.0) % RDW 16.7 H (11.5-15.5) % Plt Count 144 L (150-450) k/uL Lymphocytes # (Manual) 69.9 H (1.0-4.8) k/uL PT 14.6 H (9.0-12.0) sec INR 1.5 H (<1.2) APTT 67.5 H (22.0-30.0) sec Microbiology - Last 24 Hours (Table) 12/21/16 15:50 Urine Culture - Final Urine,Voided 12/21/16 16:29 Blood Culture - Preliminary Blood No Growth after 24 hours 12/21/16 15:50 Blood Culture - Preliminary Blood No Growth after 24 hours Assessment and Plan Plan: Assessment and plan #1 sepsis #2 paroxysmal atrial fibrillation with rapid ventricular response, currently in sinus rhythm #3 CLL From cardiology's perspective, we'll continue IV heparin drip. Patient is currently nothing by mouth due to swallowing difficulties secondary to sore throat. If patient goes into atrial fibrillation with a heart rate greater than 100 beats a minute may resume IV Cardizem. We will address oral anticoagulation as well as add beta flavio once patient is able to swallow. Further recommendations to follow. SUPPLIES PACKER note has been reviewed, I agree with a documented findings and plan of care. Patient was seen and examined.
[2016-12-23 12:55] LABS: ALT 30 U/L (21-72); AST 41 U/L (17-59); Alkaline Phosphatase 73 U/L (38-126); Anion Gap 9 mmol/L; Blood Urea Nitrogen 15 mg/dL (9-20); Calcium 7.8 mg/dL (8.4-10.2); Carbon Dioxide 19 mmol/L (22-30); Chloride 105 mmol/L (98-107); Glucose 106 mg/dL (74-99); Non-African American GFR(MDRD) >60 (>60 ml/min/1.73 sqM); Potassium 3.9 mmol/L (3.5-5.1); Sodium 133 mmol/L (137-145); Total Bilirubin 0.5 mg/dL (0.2-1.3)
--- NOTE | 2016-12-23 13:37 | CT ---
EXAMINATION TYPE: CT ChestAbdPelvis w con DATE OF EXAM: 12/23/2016 COMPARISON: 12/15/2013 HISTORY: Patient complains of fever, sore throat, productive cough, and chest congestion. CT DLP: 2236 mGycm CONTRAST: CT scan of the chest, abdomen and pelvis is performed without Oral Contrast and with IV Contrast, pat ient injected with 100 mL of Omnipaque 300. CT Chest: LUNGS: The lungs are clear and free of infiltrate or atelectasis. Linear parenchymal scar right midlu ng zone. Mild basilar bronchiectasis. No pulmonary nodule or mass is detected. No pleural effusion o r CT evidence of interstitial lung disease. MEDIASTINUM: Thoracic aorta is of normal caliber. The heart is not enlarged. Anterior pericardial e ffusion measuring 1.2 cm slightly enlarged relative to the prior study. Multiple subcentimeter medias tinal lymph nodes are noted essentially unchanged from prior examination. HILAR STRUCTURES: No evidence for mass. No hilar adenopathy is appreciated. OTHER: No significant abnormality. CONTRAST CT ABDOMEN AND PELVIS FINDINGS: LIVER/GB: There is evidence of cholelithiasis. Gallbladder is mildly distended at 8.8 cm in length. N o wall thickening or pericholecystic fluid identified. No space occupying hepatic lesion. Biliary tr ee is of normal caliber. PANCREAS: No inflammation. No distinct mass. SPLEEN: Splenomegaly with craniocaudal measurement of 23.3 cm. No lesion seen. ADRENALS: No nodule. No thickening. KIDNEYS/BLADDER: No hydronephrosis. No nephrolithiasis. No disctinct renal mass. BOWEL: Normal appendix. Normal bowel caliber. No inflammation. GENITAL ORGANS: Prostate gland enlargement. LYMPH NODES: Multiple subcentimeter retroperitoneal lymph nodes identified. AORTA: No significant abn ormality. OSSEOUS STRUCTURES: No significant abnormality is seen. OTHER: Left inguinal hernia containing a short segment of colon without incarceration. Fat-containing right inguinal hernia. Fat-containing umbilical hernia. IMPRESSION: 1. Splenomegaly. 2. Multiple subcentimeter mediastinal and retroperitoneal lymph nodes are nonspecific. 3. Cholelithiasis with gallbladder distention. No wall thickening or pericholecystic fluid. 4. Small but slightly enlarging pericardial effusion.
[2016-12-23] MEDS: PIPERACILLIN-TAZOBACTAM 3.375 GM in DEXTROSE/WATER 1 50ML.BAG IVPB SCH ×2 (14:16→23:35)
[2016-12-23] MEDS: LEVOFLOXACIN 750MG-D5W PMX 750 MG in DEXTROSE/WATER 1 150ML.BAG IVPB SCH (18:30)
--- NOTE | 2016-12-23 22:12 | P.PN ---
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 Rucker. History is obtained from him and his and they state that he had sores side of his tongue that started on Thursday. By his throat started to feel sore and he was eating and drinking okay at that point. Later though he noticed that he had felt like pills were getting stuck in his throat. By Thursday his throat was really sore and he had a very bad night on Thursday. On Thursday he was sleeping all day and his temperature was 101.6 and patient's made him come into the hospital for evaluation. He presented with a white count of 133 with repeat at 91.6, temperature 103.4 with heart rate running 100-120. Patient was found to be in atrial fibrillation with rapid ventricular response with no previous history. Chest x-ray showed a new mild left basilar infiltrate. Patient was admitted to the selective care unit with Cardizem drip and heparin drip and consult placed with cardiology and pulmonary medicine as well. Patient does state he last saw Dr. Rucker one month ago and his white count is usually 300. He denies having any nausea vomiting diarrhea or dysuria. His last antibiotics were the middle of October with azithromycin and prednisone. Patient is not on any current medication for CLL and he has been very healthy for 2 years according to his . He has a Chronic cough with sputum production but no other symptoms. Temperature max as morning was 102. The patient has been seen by cardiology and continued IV heparin. Patient converted to a sinus rhythm and IV Cardizem was discontinued. Echocardiogram showed mild concentric left ventricular hypertrophy, EF 50-55% LAD dilated at 29-33, mild mitral regurgitation mild tricuspid regurgitation. No mention of vegetation. Patient has had ongoing fever. 103.4 overnight. Fever also this afternoon. Feels quite miserable. However the cool solution has definitely helped his mouth. He is also given some of the careen swabs which she finds to be quite soothing to his oral cavity. Lesions have developed onto his face back and chest. There are nonpruritic and nonpainful. Oral cavity lesions remain very painful. Fever is improved this evening Objective - Vital Signs Vital signs: Vital Signs Temp 101.0 F H 12/23/16 22:01 Pulse 107 H 12/23/16 20:00 Resp 18 12/23/16 20:00 BP 133/69 12/23/16 20:00 Pulse Ox 90 L 12/23/16 20:00 Intake & Output 12/23/16 12/23/16 12/24/16 06:59 18:59 06:59 Intake Total 2680 438.898 Output Total 200 1175 100 Balance 2480 -736.102 -100 Weight 101.5 kg Intake: IV 2680 ACETAMINOPHEN IV (For NPO 800 ) 1,000 mg In Empty Bag 1 bag @ 400 mls/hr IVPB Q8HR PRN Rx#:[id number] Aztreonam 2 gm In Sodium 200 Chloride 0.9% 100 ml @ 100 mls/hr IVPB Q8HR [facility] Rx#:[id number] Heparin Sodium,Porcine/ 240 D5w Pmx 25,000 unit In Dextrose/Water 1 500ml. bag @ 10.5 UNITS/KG/HR 20 mls/hr IV .Q24H [facility] Rx#: [id number] Sodium Chloride 0.9% 1, 1440 000 ml @ 100 mls/hr IV . Q10H [facility] Rx#:[id number] Intake, IV Titration 438.898 Amount Heparin Sodium,Porcine/ 438.898 D5w Pmx 25,000 unit In Dextrose/Water 1 500ml. bag @ 10.5 UNITS/KG/HR 20 mls/hr IV .Q24H [facility] Rx#: [id number] Output: Urine 200 1175 100 Other: Voiding Method Urinal Urinal # Voids 1 - Exam en: This is a 76-year-old male. He is sitting in the chair and appears to be somewhat uncomfortable. He appears to be in no acute distress respiratory distress, feels better sitting up because of his difficulty with swallowing because of his very sore mouth. HEENT: Head is atraumatic, normocephalic. Pupils equal, round. Sclerae is anicteric. Conjunctivae are pink. Mucous membranes of the mouth are moist. Patient has a lesion on the left lateral tongue as well as lesions noted in the oropharynx with white exudate. There are more lesions on the hard palate today. As well as to the soft palate. Base of the left tongue is more tender. Few lesions are also seen over the bucca mucosa. NECK: Supple. No JVD. No lymphadenopathy. No thyromegaly. LUNGS: A few scattered crackles. No intercostal retractions. HEART: Regular rate and rhythm. No murmur. ABDOMEN: Soft. Bowel sounds are present. No masses. No tenderness. EXTREMITIES: No pedal edema. No calf tenderness. Dorsalis pedis +2 bilaterally. NEUROLOGICAL: Patient is awake, alert and oriented x3 Skin has evidence of a few scattered lesions they're erythematous in nature most of them just erythematous. A few have a small amount of what appears to be a vesicle formation most do not. - Labs CBC & Chem 7: 12/23/16 06:44 12/23/16 06:45 Labs: Abnormal Lab Results - Last 24 Hours (Table) 12/23/16 12/23/16 12/23/16 Range/Units 06:44 06:44 06:45 WBC 76.8 H* (3.8-10.6) k/uL Hgb 12.6 L (13.0-17.5) gm/dL Hct 38.9 L (39.0-53.0) % RDW 16.7 H (11.5-15.5) % Plt Count 144 L (150-450) k/uL Lymphocytes # (Manual) 69.9 H (1.0-4.8) k/uL PT 14.6 H (9.0-12.0) sec INR 1.5 H (<1.2) APTT 67.5 H (22.0-30.0) sec Sodium 133 L (137-145) mmol/L Carbon Dioxide 19 L (22-30) mmol/L Glucose 106 H (74-99) mg/dL Calcium 7.8 L (8.4-10.2) mg/dL Total Protein 5.0 L (6.3-8.2) g/dL Albumin 3.2 L (3.5-5.0) g/dL Microbiology - Last 24 Hours (Table) 12/21/16 16:29 Blood Culture - Preliminary Blood No Growth after 48 hours 12/21/16 15:50 Blood Culture - Preliminary Blood No Growth after 48 hours 12/23/16 08:58 Sputum Culture - Preliminary Sputum 12/21/16 15:50 Urine Culture - Final Urine,Voided Laboratory Results WBC 76.8 k/uL (3.8-10.6) H* 12/23/16 06:44 RBC 4.59 m/uL (4.30-5.90) 12/23/16 06:44 Hgb 12.6 gm/dL (13.0-17.5) L 12/23/16 06:44 Hct 38.9 % (39.0-53.0) L 12/23/16 06:44 MCV 84.7 fL (80.0-100.0) 12/23/16 06:44 MCH 27.4 pg (25.0-35.0) 12/23/16 06:44 MCHC 32.3 g/dL (31.0-37.0) 12/23/16 06:44 RDW 16.7 % (11.5-15.5) H 12/23/16 06:44 Plt Count 144 k/uL (150-450) L 12/23/16 06:44 Neutrophils % (Manual) 8.0 % 12/23/16 06:44 Lymphocytes % (Manual) 91.0 % 12/23/16 06:44 Monocytes % (Manual) 1.0 % 12/23/16 06:44 Eosinophils % (Manual) 1.0 % 12/22/16 06:05 Neutrophils # (Manual) 6.1 k/uL (1.3-7.7) 12/23/16 06:44 Lymphocytes # (Manual) 69.9 k/uL (1.0-4.8) H 12/23/16 06:44 Monocytes # (Manual) 0.8 k/uL (0-1.0) 12/23/16 06:44 Eosinophils # (Manual) 0.9 k/uL (0-0.7) H 12/22/16 06:05 Nucleated RBCs 0 /100 WBC (0-0) 12/23/16 06:44 Differential Comment 12/22/16 06:05 Manual Slide Review Performed 12/23/16 06:44 Hypochromasia Moderate 12/23/16 06:44 Poikilocytosis (manual Present 12/23/16 06:44 Anisocytosis Slight 12/23/16 06:44 PT 14.6 sec (9.0-12.0) H 12/23/16 06:44 INR 1.5 (<1.2) H 12/23/16 06:44 APTT 67.5 sec (22.0-30.0) H 12/23/16 06:44 Sodium 133 mmol/L (137-145) L 12/23/16 06:45 Potassium 3.9 mmol/L (3.5-5.1) 12/23/16 06:45 Chloride 105 mmol/L (98-107) 12/23/16 06:45 Carbon Dioxide 19 mmol/L (22-30) L 12/23/16 06:45 Anion Gap 9 mmol/L 12/23/16 06:45 BUN 15 mg/dL (9-20) 12/23/16 06:45 Creatinine 0.89 mg/dL (0.66-1.25) 12/23/16 06:45 Est GFR (MDRD) Af Amer >60 (>60 ml/min/1.73 sqM) 12/23/16 06:45 Est GFR (MDRD) Non-Af >60 (>60 ml/min/1.73 sqM) 12/23/16 06:45 Glucose 106 mg/dL (74-99) H 12/23/16 06:45 Plasma Lactic Acid Jason 0.9 mmol/L (0.7-2.0) 12/23/16 07:27 Calcium 7.8 mg/dL (8.4-10.2) L 12/23/16 06:45 Total Bilirubin 0.5 mg/dL (0.2-1.3) 12/23/16 06:45 AST 41 U/L (17-59) 12/23/16 06:45 ALT 30 U/L (21-72) 12/23/16 06:45 Alkaline Phosphatase 73 U/L (38-126) 12/23/16 06:45 Total Creatine Kinase 61 U/L (55-170) 12/21/16 15:50 CK-MB (CK-2) 0.7 ng/mL (0.0-2.4) 12/21/16 15:50 CK-MB (CK-2) Rel Index 1.1 12/21/16 15:50 Troponin I 0.021 ng/mL (0.000-0.034) 12/21/16 15:50 Total Protein 5.0 g/dL (6.3-8.2) L 12/23/16 06:45 Albumin 3.2 g/dL (3.5-5.0) L 12/23/16 06:45 TSH 1.820 mIU/L (0.465-4.680) 12/22/16 06:05 Free T4 1.00 ng/dL (0.78-2.19) 12/22/16 06:05 Urine Color Yellow 12/21/16 15:50 Urine Appearance Clear (Clear) 12/21/16 15:50 Urine pH 5.0 (5.0-8.0) 12/21/16 15:50 Ur Specific [place] 1.021 (1.001-1.035) 12/21/16 15:50 Urine Protein 1+ (Negative) H 12/21/16 15:50 Urine Glucose (UA) Negative (Negative) 12/21/16 15:50 Urine Ketones 2+ (Negative) H 12/21/16 15:50 Urine Blood Trace (Negative) H 12/21/16 15:50 Urine Nitrite Negative (Negative) 12/21/16 15:50 Urine Bilirubin Negative (Negative) 12/21/16 15:50 Urine Urobilinogen <2.0 mg/dL (<2.0) 12/21/16 15:50 Ur Leukocyte Esterase Trace (Negative) H 12/21/16 15:50 Urine RBC <1 /hpf (0-5) 12/21/16 15:50 Urine WBC 6 /hpf (0-5) H 12/21/16 15:50 Urine Mucus Moderate /hpf (None) H 12/21/16 15:50 Microbiology 12/21/16 16:29 Blood Blood Culture - Preliminary No Growth after 48 hours 12/21/16 15:50 Blood Blood Culture - Preliminary No Growth after 48 hours 12/23/16 08:58 Sputum Sputum Culture - Preliminary 12/21/16 15:50 Urine,Voided Urine Culture - Final Assessment and Plan (1) CLL (chronic lymphocytic leukemia) Status: Chronic (2) Mucositis Status: Acute (3) Fever Narrative/Plan: Pleasant gentleman who is really quite uncomfortable. He relates that he had a great difficulty trying to swallow a Tylenol pill that eventually improved. He is now had improvement of his atrial fibrillation however his mouth and swallowing are still very problematic. He has been seen by his oncologist. We' ll add in cool solution at this time. We'll check for PCR for HSV 1 and 2. Also possible that this is a fungal process. Antiviral and antifungal therapies are started while workup is in process. IgG level is still in process and will be supplemented if indicated. We'll need premedication if intravenous immunoglobulin as needed. Blood cultures are in process. PCR is in process. We'll send further testing from the vesicles of the chest and back for viral analysis Continue the antiviral therapy, antifungal therapy, and antibiotic therapy with Zosyn being added today with the ongoing fever. Blood cultures are negative so far. Chest x-ray does raise some potential concerns to pneumonia versus fluid especially given his recent A. fib event. Green swabs are given for his mouth which he finds very comforting as the cool solution which we'll continue. Continue intravenous acetaminophen as needed. Oncology is following. Status: Acute
[2016-12-24] MEDS: ACYCLOVIR SODIUM 500 MG in SODIUM CHLORIDE 0.9% 100 ML IVPB SCH ×3 (03:26→20:34)
[2016-12-24 04:52] LABS: Anisocytosis Slight; Aty Lym Flag Marked; CHCM 29.1; HDW 2.81; HGB 12.3 gm/dL (13.0-17.5); Hypochromasia Marked; MCH 26.4 pg (25.0-35.0); MCHC 29.4 g/dL (31.0-37.0); Mean Platelet Volume 7.9; RBC 4.68 m/uL (4.30-5.90); RDW 16.7 % (11.5-15.5); WBC (Perox) 71.52
[2016-12-24 04:57] LABS: WBC 73.3 k/uL (3.8-10.6)
[2016-12-24 04:58] LABS: MCV 89.8 fL (80.0-100.0)
[2016-12-24 05:06] LABS: INR 1.5 (<1.2); Prothrombin Time 14.8 sec (9.0-12.0)
[2016-12-24 05:58] LABS: Add Differential Manual Differential
[2016-12-24 06:25] LABS: Manual Review Performed; Nucleated Red Blood Cells 0 /100 WBC (0-0); Total Cells Counted 100
[2016-12-24] MEDS: LEVOTHYROXINE IVP 100 MCG/5 ML VIAL IV SCH (06:53)
[2016-12-24] MEDS: SODIUM CHLORIDE 0.9% 1,000 ML IV SCH ×2 (06:59→18:14)
[2016-12-24] MEDS: ACETAMINOPHEN IV (For NPO) 1,000 MG in EMPTY BAG 1 BAG IVPB PRN ×2 (07:00→18:13)
[2016-12-24] MEDS: SYMBICORT 160-4.5 MCG INHALER INHALATION SCH ×2 (08:43→21:14)
[2016-12-24] MEDS: MICAFUNGIN 100 MG in SODIUM CHLORIDE 0.9% 100 ML IVPB SCH (09:06)
[2016-12-24] MEDS: MULTIVITAMINS, THERA 1 EACH TAB PO SCH (09:06)
[2016-12-24] MEDS: MAG HYDROX/AL HYDROX/SIMETH 30 ML, LIDOCAINE VISCOUS 30 ML, diphenhydrAMINE ELIXIR 75 M... PO SCH ×12 (09:07→19:03)
[2016-12-24] MEDS: PIPERACILLIN-TAZOBACTAM 3.375 GM in DEXTROSE/WATER 1 50ML.BAG IVPB SCH ×2 (09:12→18:14)
[2016-12-24 09:45] LABS: HSV(PCR) Source Blood - Plasma
--- NOTE | 2016-12-24 10:14 | FL ---
EXAMINATION TYPE: FL barium swallow w video DATE OF EXAM ORDERED: 12/24/2016 HISTORY: r/o aspiration. COMPARISON: None. TECHNIQUE: The patient was challenged with varying food substances ranging from thin liquids through solids. FINDINGS: There was mild penetration with honey thick liquids. There are moderate residuals in the p iriform sinuses and to a lesser extent in the vallecula. There appears to be a filling defect or mult iple filling defect within the piriform sinuses. IMPRESSION: 1. THIS PATIENT IS AT RISK FOR ASPIRATION WITH HONEY THICK LIQUIDS. 2. QUESTIONABLE FILLING DEFECTS WITHIN THE PIRIFORM SINUSES. DIRECT VISUALIZATION WOULD BE SUGGESTED.
[2016-12-24] MEDS ORDERED: DILTIAZEM 125 MG in SODIUM CHLORIDE 0.9% 100 ML IV SCH (11:00)
--- NOTE | 2016-12-24 12:26 | P.PN ---
Subjective A 76-year-old male patient with known history of chronic lymphocytic leukemia who has been followed up by also on an outpatient basis. The patient lives in [place] and he goes to [facility]. The patient's CLL has been essentially stable. His counselor of however the patient did not have any indication for therapy and his been monitored clinically by Marlon tesfaye. He also has COPD. He has seen a ripsaw matcher in [place], and he has undergone a pulmonary function test and he was told that his lung capacities in order of 50% . I'm assuming his FEV1 is in the range of 50%. The patient was given Symbicort 160/4.5, 2 puffs twice daily regarding maintenance therapy for COPD. Denies having any recurrent exacerbations. Denies having any major pulmonary complications from the COPD. He is able to ambulate and perform activities of daily today life without any major difficulties. The patient came into the hospital because of having soreness in his throat and tongue and change in his voice along with some difficulties in swallowing and speech. This started approximately 2-3 ago and progressively got worse. He was also found to have a temperature 11.6 and for that reason he was asked to come in to the hospital by his . He presented with a white cell count of 133. His temperature was over 3.4. He had a heart rate of 100 220. He was found to be in atrial fibrillation with rapid ventricular response without any previous history. Chest x-ray showed limited left basilar pulmonary infiltrates. The patient was started on Cardizem drip. The patient was started on heparin drip. The patient was asked to be seen by cardiology. The pulmonary consultation was also requested due to concern of an underlying pneumonia. The patient converted subsequent sinus rhythm on IV Cardizem that was ultimately discontinued her ovaries still on IV heparin. Echocardiogram showed mild concentric epidural hypertrophy. He has an ejection fraction of 55%. Mild MR and mild TR. No vegetations. On examination, he has significant degree of oropharyngeal thrush. He was given a combination of Levaquin and aztreonam in the emergency department. On 12/23/2016 the patient is being seen in follow-up. The patient still having fever and he was febrile on and off during the day. His throat remains sore and there is some white cottage cheese spots in the posterior oropharynx suggestive underlying oropharyngeal candidiasis. At the same time the patient has developed some vesicular eruption over his face and torso. He was seen by infectious disease. He was kept on Levaquin. Diflucan was discontinued today and micafungin was started. Cultures of been all negative. Hemodynamically stable. White cell count has dropped. No other significant events overnight. Note that these vesicular lesions are somewhat nonpainful and nonpruritic. Mainly involving the face and to lesser extent the trunk. Patient is seen again today 12/24/2016 in follow-up on the selective care unit. He is awake and alert. He is quite tired and did not sleep last night. He was having some hallucinations and confusion. He did spike another temperature of 102.3 last evening. Currently afebrile. He also had recurrent atrial fibrillation with a rapid ventricular response and has been restarted on a Cardizem drip, currently at 10 mg per hour. He is also on a heparin drip at 12.5 units per kilogram per hour. His vesicular lesions are still visible. He continues to deny any itching or pain or tingling. They were scraped and sent to lab for evaluation per Dr. Rondon last evening. He denies any worsening shortness of breath cough or congestion. He is maintaining good O2 saturations in the mid 90s on 2 L/m per nasal cannula. Sputum cultures pending. Blood cultures reveal no growth to date. The patient had a barium swallow and the patient is at risk for aspiration. There is also questionable filling defects within the piriform sinuses and an ENT evaluation is recommended. A CT scan of the chest and abdomen revealed splenomegaly, multiple subcentimeter mediastinal and retroperitoneal lymph nodes, nonspecific. Cholelithiasis with gallbladder distention but no wall thickening and small but slightly enlarged pericardial effusion. He is being followed by infectious disease. He is currently on antiviral, antifungal and antibiotic therapies. Objective - Vital Signs Vital signs: Vital Signs Temp 98.8 F 12/24/16 08:00 Pulse 125 H 12/24/16 08:00 Resp 16 12/24/16 03:30 BP 146/63 12/24/16 08:00 Pulse Ox 95 12/24/16 08:00 Intake & Output 12/23/16 12/24/16 12/24/16 18:59 06:59 18:59 Intake Total 476.968 9212 Output Total 1175 350 Balance -736.102 650 Weight 102.4 kg Intake: Intake, IV Titration 256.439 3695 Amount Acyclovir Sodium 500 mg 100 In Sodium Chloride 0.9% 100 ml @ 100 mls/hr IVPB Q8H [facility] Rx#:[id number] Heparin Sodium,Porcine/ 438.898 D5w Pmx 25,000 unit In Dextrose/Water 1 500ml. bag @ 10.5 UNITS/KG/HR 20 mls/hr IV .Q24H [facility] Rx#: [id number] Piperacillin-Tazobactam 3 50 .375 gm In Dextrose/Water 1 50ml.bag @ 12.5 mls/hr IVPB Q8HR [facility] Rx#: [id number] Sodium Chloride 0.9% 1, 850 000 ml @ 100 mls/hr IV . Q10H [facility] Rx#:[id number] Output: Urine 1175 350 Other: Voiding Method Urinal # Voids 2 - Exam The patient appeared well nourished and normally developed. Vital signs as documented. Head exam is unremarkable. No scleral icterus or corneal arcus noted. Neck is without jugular venous distension, thyromegaly, or carotid bruits. Carotid upstrokes are brisk bilaterally. The patient has extensive oropharyngeal thrush. Lungs are events breath sounds bilaterally especially lung bases.. Cardiac exam reveals the PMI to be normally sized and situated. Rhythm is irregular. First and second heart sounds normal. No murmurs, rubs or gallops. Abdominal exam reveals normal bowel sounds, no masses, no organomegaly and no aortic enlargement. Extremities are nonedematous and both femoral and pedal pulses are normal. Patient has papular vesicular lesions over his face and trunk. No open lesions or sores. No active drainage from these lesions.. this is minimally over the trunk and mainly involving the face. - Labs CBC & Chem 7: 12/24/16 03:45 12/23/16 06:45 Labs: Abnormal Lab Results - Last 24 Hours (Table) 12/23/16 12/23/16 12/24/16 Range/Units 06:45 06:45 03:45 WBC 73.3 H* (3.8-10.6) k/uL Hgb 12.3 L (13.0-17.5) gm/dL MCHC 29.4 L (31.0-37.0) g/dL RDW 16.7 H (11.5-15.5) % Plt Count 126 L (150-450) k/uL Lymphocytes # (Manual) 67.4 H (1.0-4.8) k/uL PT (9.0-12.0) sec INR (<1.2) Sodium 133 L (137-145) mmol/L Carbon Dioxide 19 L (22-30) mmol/L Glucose 106 H (74-99) mg/dL Calcium 7.8 L (8.4-10.2) mg/dL Total Protein 5.0 L (6.3-8.2) g/dL Albumin 3.2 L (3.5-5.0) g/dL IgG 332.0 L (700.0-1600.0) mg/dL IgA <25.5 L (60.0-350.0) mg/dL IgM <16.9 L (40.0-280.0) mg/dL 12/24/16 Range/Units 03:45 WBC (3.8-10.6) k/uL Hgb (13.0-17.5) gm/dL MCHC (31.0-37.0) g/dL RDW (11.5-15.5) % Plt Count (150-450) k/uL Lymphocytes # (Manual) (1.0-4.8) k/uL PT 14.8 H (9.0-12.0) sec INR 1.5 H (<1.2) Sodium (137-145) mmol/L Carbon Dioxide (22-30) mmol/L Glucose (74-99) mg/dL Calcium (8.4-10.2) mg/dL Total Protein (6.3-8.2) g/dL Albumin (3.5-5.0) g/dL IgG (700.0-1600.0) mg/dL IgA (60.0-350.0) mg/dL IgM (40.0-280.0) mg/dL Microbiology - Last 24 Hours (Table) 12/23/16 08:58 Gram Stain - Preliminary Sputum Sputum Culture - Preliminary 12/21/16 16:29 Blood Culture - Preliminary Blood No Growth after 48 hours 12/21/16 15:50 Blood Culture - Preliminary Blood No Growth after 48 hours Assessment and Plan Plan: Assessment: 1 acute febrile illness in a 76-year-old be patient with chronic lymphocytic leukemia. The patient has oropharyngeal thrush. The patient also has a vesicular eruption that has evolved over the past 24 hours. Exact etiology is not clear. Doubt disseminated herpetic lesions. Chickenpox is less likely. Cutaneous involvement with CLL needs to be considered. Paraneoplastic is another consideration. Disseminated fungal anemia is less likely. 2 acute fever, and the patient continues to have on and off fever with a T-max of 103.4 3 COPD with probable FEV1 of 50% of predicted at baseline maintained on Symbicort on outpatient basis 4 chronic lymphocytic leukemia 5 new-onset atrial fibrillation with rapid ventricular response, Cardizem drip resumed at 10 mg per hour. Heparin drip continues. 6 hypothyroidism currently on thyroid hormone replacement mild levels are therapeutic at this point Plan: The patient was seen and evaluated by Dr. Pimentel. His computed tomography scan, barium swallow and labs were all reviewed. We'll await sputum culture results. In the interim, he continues on Zosyn and Levaquin along with micafungin and acyclovir. ID is on the case as well. We will continue to follow and make further recommendations based on his clinical status.
--- NOTE | 2016-12-24 13:21 | P.PN ---
Subjective Real gentleman with a history of CLL who presented to the emergency department with complaints of fever with associated sore throat, sinus congestion and cough with yellow sputum. Chest x-ray on admission showed a mild left basilar infiltrate. Patient was found to be having episodes of paroxysmal atrial fibrillation with rapid ventricular response, initially was on Cardizem drip which has been discontinued. Patient did have another episode of paroxysmal atrial fibrillation through the night. Patient has been nothing by mouth due to difficulty swallowing secondary to sore throat, sores. Upon examination patient sitting up at the site of the bed. He is febrile at this time. He denies complaints of palpitations or feeling his heart racing at any time. He denies complaints of chest discomfort or dizziness. He's had no syncope and denies complaint of edema. He continues to complain of sore throat , sinus congestion and a cough as well as skin, mouth and throat sores. Patient is being followed by oncology as well as infectious disease. 2-D echo with Doppler was completed yesterday showed low normal LV systolic function with ejection fraction between 50-55% with mild MR and mild TR. Patient's thyroid function studies are normal with a TSH of 1.820 and a free T4 of 1.00. The patient went back into atrial fibrillation with RVR this morning, he remains NPO except ice chips. Objective - Vital Signs Vital signs: Vital Signs Temp 97.9 F 12/24/16 12:00 Pulse 95 12/24/16 12:00 Resp 16 12/24/16 03:30 BP 135/61 12/24/16 12:00 Pulse Ox 93 L 12/24/16 12:00 Intake & Output 12/23/16 12/24/16 12/24/16 18:59 06:59 18:59 Intake Total 537.649 8309 365.2 Output Total 1175 350 Balance -736.102 650 365.2 Weight 102.4 kg Intake: IV 95.2 Heparin Sodium,Porcine/ 95.2 D5w Pmx 25,000 unit In Dextrose/Water 1 500ml. bag @ 10.5 UNITS/KG/HR 20 mls/hr IV .Q24H [facility] Rx#: [id number] Intake, IV Titration 616.034 1168 270 Amount Acyclovir Sodium 500 mg 100 100 In Sodium Chloride 0.9% 100 ml @ 100 mls/hr IVPB Q8H [facility] Rx#:[id number] Diltiazem 125 mg In 20 Sodium Chloride 0.9% 100 ml @ 10 MG/HR 10 mls/hr IV .[id number] [facility] Rx#: [id number] Heparin Sodium,Porcine/ 438.898 D5w Pmx 25,000 unit In Dextrose/Water 1 500ml. bag @ 10.5 UNITS/KG/HR 20 mls/hr IV .Q24H [facility] Rx#: [id number] Micafungin 100 mg In 100 Sodium Chloride 0.9% 100 ml @ 100 mls/hr IVPB DAILY [facility] Rx#:[id number] Piperacillin-Tazobactam 3 50 50 .375 gm In Dextrose/Water 1 50ml.bag @ 12.5 mls/hr IVPB Q8HR [facility] Rx#: [id number] Sodium Chloride 0.9% 1, 850 000 ml @ 100 mls/hr IV . Q10H [facility] Rx#:[id number] Output: Urine 1175 350 Other: Voiding Method Urinal # Voids 2 - Exam PHYSICAL EXAMINATION: HEENT: Head is atraumatic, normocephalic. Pupils equal, round. Neck is supple. There is no elevated jugular venous pressure. HEART EXAMINATION: Heart sounds irregularly irregular, S1 and S2 normal. No murmur or gallop heard. CHEST EXAMINATION: Lungs revealed improved air entry. No chest wall tenderness is noted on palpation or with deep breathing. ABDOMEN: Soft, nontender. Bowel sounds are heard. No organomegaly noted. EXTREMITIES: 2+ peripheral pulses with no evidence of peripheral edema and no calf tenderness noted. NEUROLOGIC patient is awake, alert and oriented x3. . - Labs CBC & Chem 7: 12/24/16 03:45 12/23/16 06:45 Labs: Abnormal Lab Results - Last 24 Hours (Table) 12/23/16 12/24/16 12/24/16 Range/Units 06:45 03:45 03:45 WBC 73.3 H* (3.8-10.6) k/uL Hgb 12.3 L (13.0-17.5) gm/dL MCHC 29.4 L (31.0-37.0) g/dL RDW 16.7 H (11.5-15.5) % Plt Count 126 L (150-450) k/uL Lymphocytes # (Manual) 67.4 H (1.0-4.8) k/uL PT 14.8 H (9.0-12.0) sec INR 1.5 H (<1.2) IgG 332.0 L (700.0-1600.0) mg/dL IgA <25.5 L (60.0-350.0) mg/dL IgM <16.9 L (40.0-280.0) mg/dL Microbiology - Last 24 Hours (Table) 12/23/16 08:58 Gram Stain - Preliminary Sputum Sputum Culture - Preliminary 12/21/16 16:29 Blood Culture - Preliminary Blood No Growth after 48 hours 12/21/16 15:50 Blood Culture - Preliminary Blood No Growth after 48 hours Assessment and Plan Plan: Assessment and plan #1 sepsis #2 paroxysmal atrial fibrillation with rapid ventricular response #3 CLL From cardiology's perspective, since patient remains nothing by mouth except ice chips we will continue IV heparin. Due to recurrence of A. fib with RVR and will give the patient 10 mg Cardizem IV bolus followed by 10 mg an hour drip. Once patient is able to take by mouth medications we will add beta flavio for heart rate control and address oral anticoagulation. Further recommendations to follow [facility] COMMUNITY MANAGER note has been reviewed, I agree with a documented findings and plan of care. Patient was seen and examined.
[2016-12-24] MEDS ORDERED: IMMUNE GLOBULIN 1 GM/10 ML VL IV SCH (14:30)
[2016-12-24] MEDS ORDERED: IMMUNE GLOBULIN (HUMAN-IGG) 5 GM in EMPTY BAG 1 BAG IV ONE (15:00)
[2016-12-24] MEDS ORDERED: IMMUNE GLOBULIN (HUMAN-IGG) 10 GM in EMPTY BAG 1 BAG IV ONE (15:00)
[2016-12-24] MEDS ORDERED: diphenhydrAMINE 50 MG/ML 1 ML VIAL IVP STA (16:44)
[2016-12-24] MEDS: LEVOFLOXACIN 750MG-D5W PMX 750 MG in DEXTROSE/WATER 1 150ML.BAG IVPB SCH (20:34)
[2016-12-24 20:55] VITALS: BP 120/56; PULSE 90; RESP 18; TEMP 101
--- NOTE | 2016-12-24 21:31 | P.DS ---
Providers Date of admission: 12/21/16 17:52 Expected date of discharge: 12/24/16 Attending physician: Valdez Rucker Consults: 12/21/16 17:52 Consult Physician Routine Consulting Provider: Anabella Pimentel Consult Reason/Comments: Pneumonia Do you want consulting provider notified?: Yes 12/21/16 17:54 Consult Physician Urgent Consulting Provider: Sukhi Jernigan Consult Reason/Comments: a fib Do you want consulting provider notified?: Yes 12/22/16 05:33 Consult Physician Urgent Consulting Provider: Zak Rondon Consult Reason/Comments: fever Do you want consulting provider notified?: Yes 12/23/16 11:06 Consult Physician Urgent Consulting Provider: Dorian Abbasi Consult Reason/Comments: rash face, back, neck and chest Do you want consulting provider notified?: Yes 12/24/16 16:39 Consult Physician Routine Consulting Provider: Mele Curiel Consult Reason/Comments: abnormal barium swallow, dysphagia Do you want consulting provider notified?: Yes Primary care physician: Stated None - Discharge Diagnosis(es) (1) Sepsis Current Visit: Yes Status: Acute Priority: High (2) Mucositis Current Visit: Yes Status: Acute Priority: High (3) CLL (chronic lymphocytic leukemia) Current Visit: No Status: Chronic Priority: Low (4) Hypothyroidism Current Visit: No Status: Chronic Priority: Low (5) COPD (chronic obstructive pulmonary disease) Current Visit: No Status: Chronic Priority: Medium (6) Atrial fibrillation Current Visit: Yes Status: Acute Priority: High Hospital Course: Pt admitted to the hospital 12/21/16 with fever and severe mucositis, pancultures and viral work up done, he was found to be in a-fib and started on heparin drip. He developed a disseminated papular rash on face, neck and trunk, by day 2 of hospitalization, no weeping or drainage. Since then pt has had ID and Cardiology consults, he is on heparin drip, cardizem drip, being treated with antivirals, antifungals and antibiotics, CT CAP was non-diagnostic for any possible underlying infection source, viral work up has been negative this far. Pt was evaluated by speech therapy and made NPO for aspiration precautions, ENT consult and Derm consults had not been completed but pt fever pattern seemed to have broke this AM, unfortunately by the afternoon pt had fever of 102.1F. [place] that pt condition not improving satisfactorily and transfer to [facility] is now in process. Spoke with Dr. Duran and transfer team, pt will be admitted to telemetry unit with ID consult. Patient Condition at Discharge: Stable Plan - Discharge Summary New Discharge Prescriptions: No Action Levothyroxine Sodium [Synthroid] 125 mcg PO DAILY Budesonide/Formoterol Fumarate [Symbicort 160-4.5 Mcg Inhaler] 2 puff INHALATION RT-BID Multivitamins, Thera [Multivitamin (formulary)] 1 tab PO DAILY Discharge Medication List Budesonide/Formoterol Fumarate [Symbicort 160-4.5 Mcg Inhaler] 2 puff INHALATION RT-BID 12/21/16 [History] Levothyroxine Sodium [Synthroid] 125 mcg PO DAILY 12/21/16 [History] Multivitamins, Thera [Multivitamin (formulary)] 1 tab PO DAILY 12/21/16 [History ] Follow up Appointment(s)/Referral(s): None,Stated [Primary Care Provider] - 1-2 days Valdez Rucker MD [STAFF PHYSICIAN] - 4 Weeks Activity/Diet/Wound Care/Special Instructions: NPO status per Speech therapy Discharge Disposition: OTHER INSTITUTION NOT DEFINED
[2016-12-24] MEDS: HEPARIN SODIUM,PORCINE/D5W PMX 25,000 UNIT in DEXTROSE/WATER 1 500ML.BAG IV SCH (22:11)
--- NOTE | 2016-12-24 22:16 | P.PN ---
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 Rucker. History is obtained from him and his and they state that he had sores side of his tongue that started on Thursday. By his throat started to feel sore and he was eating and drinking okay at that point. Later though he noticed that he had felt like pills were getting stuck in his throat. By Thursday his throat was really sore and he had a very bad night on Thursday. On Thursday he was sleeping all day and his temperature was 101.6 and patient's made him come into the hospital for evaluation. He presented with a white count of 133 with repeat at 91.6, temperature 103.4 with heart rate running 100-120. Patient was found to be in atrial fibrillation with rapid ventricular response with no previous history. Chest x-ray showed a new mild left basilar infiltrate. Patient was admitted to the selective care unit with Cardizem drip and heparin drip and consult placed with cardiology and pulmonary medicine as well. Patient does state he last saw Dr. Rucker one month ago and his white count is usually 300. He denies having any nausea vomiting diarrhea or dysuria. His last antibiotics were the middle of October with azithromycin and prednisone. Patient is not on any current medication for CLL and he has been very healthy for 2 years according to his . He has a Chronic cough with sputum production but no other symptoms. Temperature max as morning was 102. The patient has been seen by cardiology and continued IV heparin. Patient converted to a sinus rhythm and IV Cardizem was discontinued. Echocardiogram showed mild concentric left ventricular hypertrophy, EF 50-55% LAD dilated at 29-33, mild mitral regurgitation mild tricuspid regurgitation. No mention of vegetation. Patient has had ongoing fever. 103.4 overnight. Fever also this afternoon. Feels quite miserable. However the cool solution has definitely helped his mouth. He is also given some of the careen swabs which she finds to be quite soothing to his oral cavity. Lesions have developed onto his face back and chest. There are nonpruritic and nonpainful. Oral cavity lesions remain very painful. Fever had improved. But has reoccurred. The patient family has a long- standing relationship with [facility] and would like the patient transferred there for further evaluation. Objective - Vital Signs Vital signs: Vital Signs Temp 101 F H 12/24/16 20:00 Pulse 90 12/24/16 20:00 Resp 18 12/24/16 20:00 BP 120/56 12/24/16 20:00 Pulse Ox 93 L 12/24/16 20:00 Intake & Output 12/24/16 12/24/16 12/25/16 06:59 18:59 06:59 Intake Total 1000 365.2 Output Total 350 Balance 650 365.2 Weight 102.4 kg Intake: IV 95.2 Heparin Sodium,Porcine/ 95.2 D5w Pmx 25,000 unit In Dextrose/Water 1 500ml. bag @ 10.5 UNITS/KG/HR 20 mls/hr IV .Q24H [facility] Rx#: [id number] Intake, IV Titration 1000 270 Amount Acyclovir Sodium 500 mg 100 100 In Sodium Chloride 0.9% 100 ml @ 100 mls/hr IVPB Q8H [facility] Rx#:[id number] Diltiazem 125 mg In 20 Sodium Chloride 0.9% 100 ml @ 10 MG/HR 10 mls/hr IV .[id number] [facility] Rx#: [id number] Micafungin 100 mg In 100 Sodium Chloride 0.9% 100 ml @ 100 mls/hr IVPB DAILY [facility] Rx#:[id number] Piperacillin-Tazobactam 3 50 50 .375 gm In Dextrose/Water 1 50ml.bag @ 12.5 mls/hr IVPB Q8HR [facility] Rx#: [id number] Sodium Chloride 0.9% 1, 850 000 ml @ 100 mls/hr IV . Q10H [facility] Rx#:[id number] Output: Urine 350 Other: Voiding Method Urinal # Voids 2 0 - Exam en: This is a 76-year-old male. He is sitting in the chair and appears to be somewhat uncomfortable. He appears to be in no acute distress temperature 102.3 respiratory distress, feels better sitting up because of his difficulty with swallowing because of his very sore mouth. HEENT: Head is atraumatic, normocephalic. Pupils equal, round. Sclerae is anicteric. Conjunctivae are pink. Mucous membranes of the mouth are moist. Patient has a lesion on the left lateral tongue as well as lesions noted in the oropharynx with white exudate. There are more lesions on the hard palate today. As well as to the soft palate. Base of the left tongue is more tender. Few lesions are also seen over the bucca mucosa. NECK: Supple. No JVD. No lymphadenopathy. No thyromegaly. LUNGS: A few scattered crackles. No intercostal retractions. HEART: Regular rate and rhythm. No murmur. ABDOMEN: Soft. Bowel sounds are present. No masses. No tenderness. EXTREMITIES: No pedal edema. No calf tenderness. Dorsalis pedis +2 bilaterally. NEUROLOGICAL: Patient is awake, alert and oriented x3 Skin has evidence of a few scattered lesions they're erythematous in nature most of them just erythematous. A few have a small amount of what appears to be a vesicle formation most do not. - Labs CBC & Chem 7: 12/24/16 03:45 12/23/16 06:45 Labs: Abnormal Lab Results - Last 24 Hours (Table) 12/23/16 12/24/16 12/24/16 Range/Units 06:45 03:45 03:45 WBC 73.3 H* (3.8-10.6) k/uL Hgb 12.3 L (13.0-17.5) gm/dL MCHC 29.4 L (31.0-37.0) g/dL RDW 16.7 H (11.5-15.5) % Plt Count 126 L (150-450) k/uL Lymphocytes # (Manual) 67.4 H (1.0-4.8) k/uL PT 14.8 H (9.0-12.0) sec INR 1.5 H (<1.2) IgG 332.0 L (700.0-1600.0) mg/dL IgA <25.5 L (60.0-350.0) mg/dL IgM <16.9 L (40.0-280.0) mg/dL Microbiology - Last 24 Hours (Table) 12/21/16 16:29 Blood Culture - Preliminary Blood No Growth after 72 hours 12/21/16 15:50 Blood Culture - Preliminary Blood No Growth after 72 hours 12/23/16 08:58 Gram Stain - Preliminary Sputum Sputum Culture - Preliminary Laboratory Results WBC 73.3 k/uL (3.8-10.6) H* 12/24/16 03:45 RBC 4.68 m/uL (4.30-5.90) 12/24/16 03:45 Hgb 12.3 gm/dL (13.0-17.5) L 12/24/16 03:45 Hct 42.0 % (39.0-53.0) 12/24/16 03:45 MCV 89.8 fL (80.0-100.0) D 12/24/16 03:45 MCH 26.4 pg (25.0-35.0) 12/24/16 03:45 MCHC 29.4 g/dL (31.0-37.0) L 12/24/16 03:45 RDW 16.7 % (11.5-15.5) H 12/24/16 03:45 Plt Count 126 k/uL (150-450) L 12/24/16 03:45 Neutrophils % (Manual) 5.0 % 12/24/16 03:45 Band Neutrophils % 3.0 % 12/24/16 03:45 Lymphocytes % (Manual) 92.0 % 12/24/16 03:45 Monocytes % (Manual) 1.0 % 12/23/16 06:44 Eosinophils % (Manual) 1.0 % 12/22/16 06:05 Neutrophils # (Manual) 5.9 k/uL (1.3-7.7) 12/24/16 03:45 Lymphocytes # (Manual) 67.4 k/uL (1.0-4.8) H 12/24/16 03:45 Monocytes # (Manual) 0.8 k/uL (0-1.0) 12/23/16 06:44 Eosinophils # (Manual) 0.9 k/uL (0-0.7) H 12/22/16 06:05 Nucleated RBCs 0 /100 WBC (0-0) 12/24/16 03:45 Differential Comment 12/24/16 03:45 Manual Slide Review Performed 12/24/16 03:45 Hypochromasia Marked 12/24/16 03:45 Poikilocytosis (manual Present 12/23/16 06:44 Anisocytosis Slight 12/24/16 03:45 PT 14.8 sec (9.0-12.0) H 12/24/16 03:45 INR 1.5 (<1.2) H 12/24/16 03:45 APTT 67.5 sec (22.0-30.0) H 12/23/16 06:44 Sodium 133 mmol/L (137-145) L 12/23/16 06:45 Potassium 3.9 mmol/L (3.5-5.1) 12/23/16 06:45 Chloride 105 mmol/L (98-107) 12/23/16 06:45 Carbon Dioxide 19 mmol/L (22-30) L 12/23/16 06:45 Anion Gap 9 mmol/L 12/23/16 06:45 BUN 15 mg/dL (9-20) 12/23/16 06:45 Creatinine 0.89 mg/dL (0.66-1.25) 12/23/16 06:45 Est GFR (MDRD) Af Amer >60 (>60 ml/min/1.73 sqM) 12/23/16 06:45 Est GFR (MDRD) Non-Af >60 (>60 ml/min/1.73 sqM) 12/23/16 06:45 Glucose 106 mg/dL (74-99) H 12/23/16 06:45 Plasma Lactic Acid Jason 0.9 mmol/L (0.7-2.0) 12/23/16 07:27 Calcium 7.8 mg/dL (8.4-10.2) L 12/23/16 06:45 Total Bilirubin 0.5 mg/dL (0.2-1.3) 12/23/16 06:45 AST 41 U/L (17-59) 12/23/16 06:45 ALT 30 U/L (21-72) 12/23/16 06:45 Alkaline Phosphatase 73 U/L (38-126) 12/23/16 06:45 Total Creatine Kinase 61 U/L (55-170) 12/21/16 15:50 CK-MB (CK-2) 0.7 ng/mL (0.0-2.4) 12/21/16 15:50 CK-MB (CK-2) Rel Index 1.1 12/21/16 15:50 Troponin I 0.021 ng/mL (0.000-0.034) 12/21/16 15:50 Total Protein 5.0 g/dL (6.3-8.2) L 12/23/16 06:45 Albumin 3.2 g/dL (3.5-5.0) L 12/23/16 06:45 TSH 1.820 mIU/L (0.465-4.680) 12/22/16 06:05 Free T4 1.00 ng/dL (0.78-2.19) 12/22/16 06:05 Urine Color Yellow 12/21/16 15:50 Urine Appearance Clear (Clear) 12/21/16 15:50 Urine pH 5.0 (5.0-8.0) 12/21/16 15:50 Ur Specific [place] 1.021 (1.001-1.035) 12/21/16 15:50 Urine Protein 1+ (Negative) H 12/21/16 15:50 Urine Glucose (UA) Negative (Negative) 12/21/16 15:50 Urine Ketones 2+ (Negative) H 12/21/16 15:50 Urine Blood Trace (Negative) H 12/21/16 15:50 Urine Nitrite Negative (Negative) 12/21/16 15:50 Urine Bilirubin Negative (Negative) 12/21/16 15:50 Urine Urobilinogen <2.0 mg/dL (<2.0) 12/21/16 15:50 Ur Leukocyte Esterase Trace (Negative) H 12/21/16 15:50 Urine RBC <1 /hpf (0-5) 12/21/16 15:50 Urine WBC 6 /hpf (0-5) H 12/21/16 15:50 Urine Mucus Moderate /hpf (None) H 12/21/16 15:50 IgG 332.0 mg/dL (700.0-1600.0) L 12/23/16 06:45 IgA <25.5 mg/dL (60.0-350.0) L 12/23/16 06:45 IgM <16.9 mg/dL (40.0-280.0) L 12/23/16 06:45 HSV I DNA PCR Not detected (Not detected) 12/23/16 06:44 HSV II DNA PCR Not detected (Not detected) 12/23/16 06:44 HSV (PCR) Source Blood - Plasma 12/23/16 06:44 Microbiology 12/21/16 16:29 Blood Blood Culture - Preliminary No Growth after 72 hours 12/21/16 15:50 Blood Blood Culture - Preliminary No Growth after 72 hours 12/23/16 08:58 Sputum Gram Stain - Preliminary 12/23/16 08:58 Sputum Sputum Culture - Preliminary 12/21/16 15:50 Urine,Voided Urine Culture - Final IgG low at 300 Assessment and Plan (1) CLL (chronic lymphocytic leukemia) Status: Chronic (2) Mucositis Status: Acute (3) Fever Narrative/Plan: Pleasant gentleman who is really quite uncomfortable. He relates that he had a great difficulty trying to swallow a Tylenol pill that eventually improved. He is now had improvement of his atrial fibrillation however his mouth and swallowing are still very problematic. He has been seen by his oncologist. We' ll add in cool solution at this time. We'll check for PCR for HSV 1 and 2. Also possible that this is a fungal process. Antiviral and antifungal therapies are started while workup is in process. IgG level is still in process and will be supplemented if indicated. We'll need premedication if intravenous immunoglobulin as needed. Blood cultures are in process. PCR is in process. We'll send further testing from the vesicles of the chest and back for viral analysis Continue the antiviral therapy, antifungal therapy, and antibiotic therapy with Zosyn being added today with the ongoing fever. Blood cultures are negative so far. Chest x-ray does raise some potential concerns to pneumonia versus fluid especially given his recent A. fib event. Green swabs are given for his mouth which he finds very comforting as the cool solution which we'll continue. Continue intravenous acetaminophen as needed. Oncology is following. Patient was showing some improvement but his fevers have now reoccurred. He has noted his IgG level is low and intravenous immunoglobulin has been started. Did receive some premeds. With his ongoing fever the family would like him transferred to [facility] where they have some prior interactions. Continue intravenous acyclovir with concerns of this underlying viral infection , many features of a herpetic infection. Antifungal and antibiotic therapy also continue blood cultures are process but are negative so far. Status: Acute
[2016-12-25 09:49] LABS: Varicella zoster Virus by PCR DETECTED (Not detected)
[2016-12-25] MEDS ORDERED: IMMUNE GLOBULIN (HUMAN-IGG) 10 GM in EMPTY BAG 1 BAG IV ONE (15:00)
[2016-12-25] MEDS ORDERED: IMMUNE GLOBULIN (HUMAN-IGG) 5 GM in EMPTY BAG 1 BAG IV ONE (15:00)
== END 2016-12-24 22:28 | disposition short-term general hospital (02) | DRG 872 ==
LOC: EC 15:21 → 5ONC 17:52 → 6SEL 18:17
PROVIDERS: ADMIT Internal Medicine Hematology & Oncology; ATTEND Internal Medicine Hematology & Oncology
PROC: 3E0234Z Introduction of Serum, Toxoid and Vaccine into Muscle, Percutaneous Approach (ICD-10-PCS; principal; 2016-12-21)
DX: A41.9 Sepsis, unspecified organism (principal); B37.89 Other sites of candidiasis; C91.10 Chronic lymphocytic leukemia of B-cell type not having achieved remission; B37.0 Candidal stomatitis; R13.10 Dysphagia, unspecified; J44.0 Chronic obstructive pulmonary disease with (acute) lower respiratory infection; I36.1 Nonrheumatic tricuspid (valve) insufficiency; J44.9 Chronic obstructive pulmonary disease, unspecified; R44.3 Hallucinations, unspecified; I48.0 Paroxysmal atrial fibrillation; E03.9 Hypothyroidism, unspecified; K12.30 Oral mucositis (ulcerative), unspecified; I34.0 Nonrheumatic mitral (valve) insufficiency; K80.20 Calculus of gallbladder without cholecystitis without obstruction; K82.8 Other specified diseases of gallbladder; R16.1 Splenomegaly, not elsewhere classified; R91.1 Solitary pulmonary nodule; R21 Rash and other nonspecific skin eruption; R59.0 Localized enlarged lymph nodes; R41.0 Disorientation, unspecified; N42.9 Disorder of prostate, unspecified; R53.1 Weakness; Z87.891 Personal history of nicotine dependence; Z79.51 Long term (current) use of inhaled steroids; Z88.0 Allergy status to penicillin; Z79.899 Other long term (current) drug therapy; Z23 Encounter for immunization; Z87.01 Personal history of pneumonia (recurrent); Z81.8 Family history of other mental and behavioral disorders; Z92.25 Personal history of immunosuppression therapy
CPT/HCPCS: 36415; 71020; 71260; 74177; 74230; 80053; 81001; 82550; 82553; 82784; 83605; 84439; 84443; 84484; 85025; 85610; 85730; 87040; 87070; 87086; 87205; 87529; 87798; 93005; 93306; 94640; 94760; 96361; 96365; 96375; 99285

== ENCOUNTER 2017-02-03 11:14 | Inpatient (IN) | payer MEDICARE ==
[2017-02-03] MEDS ORDERED: IPRATROPIUM-ALBUTEROL 3 ML NEB INHALATION STA (11:19)
[2017-02-03] MEDS ORDERED: DILTIAZEM 125 MG in SODIUM CHLORIDE 0.9% 100 ML IV ONE (11:20)
--- NOTE | 2017-02-03 11:24 | ED ---
SOB HPI - General Stated Complaint: SOB Time Seen by Provider: 02/03/17 11:14 Source: patient, RN notes reviewed - History of Present Illness Initial Comments: This is a 76-year-old male with a recent long stay at [facility] who was apparently discharged 2 days ago who presents by EMS today with complaints of shortness of breath since arriving home which is gotten worse. She had a cough of clear phlegm was noted have a fever today. Also per EMS he was endorsed to have a elevated heart rate of about 160. He does have a history of atrial fibrillation in the past also history of COPD. Also history of left Fletcher 's palsy. He just spent 5 weeks at [facility] he was diagnosed with leukemia about 8 weeks ago. While in hospital he did have a history of pneumonia. He does have a feeding tube per paramedics. No reported chest pain. MD Complaint: shortness of breath, cough - Related Data Home Medications Medication Instructions Recorded Confirmed Budesonide/Formoterol Fumarate 2 puff INHALATION RT-BID 12/21/16 02/03/17 [Symbicort 160-4.5 Mcg Inhaler] Levothyroxine Sodium [Synthroid] 125 mcg PO DAILY 12/21/16 02/03/17 Multivitamins, Thera [Multivitamin 1 tab PO DAILY 12/21/16 02/03/17 (formulary)] Allergies Allergy/AdvReac Type Severity Reaction Status Date / Time amoxicillin Allergy Rash/Hives Verified 02/03/17 12:22 Review of Systems ROS Statement: Those systems with pertinent positive or pertinent negative responses have been documented in the HPI. ROS Other: All systems not noted in ROS Statement are negative. Past Medical History Past Medical History: Cancer, Pneumonia, Prostate Disorder, Thyroid Disorder Additional Past Medical History / Comment(s): CHRONIC LYMPHOCYTIC LEUKEMIA, CHRONIC BRONCHITIS/COPD History of Any Multi-Drug Resistant Organisms: None Reported Additional Past Surgical History / Comment(s): THYROID SURGERY Past Anesthesia/Blood Transfusion Reactions: Blood Transfusion Reaction Additional Past Anesthesia/Blood Transfusion Reaction / Comment(s): GAVE BENADRYL AND RAN SLOW. Has had multiple transfusuions and has a reaction every time Past Psychological History: No Psychological Hx Reported Smoking Status: Former smoker Additional Past Alcohol Use History / Comment(s): Patient was only a smoker for 5-6 years in the 1960s. No marijuana or street drug use. He and his winter in [place] and return to [place] for the oates. They have a Jamargyi terrier without any other animal exposures he currently lives on the [place]. Patient does normal yardwork but no extensive gardening or other hobbies. - Past Family History Father Family Medical History: Dementia Mother Family Medical History: No Reported History General Exam - General Exam Comments Initial Comments: This is a well-developed asthenic appearing male General appearance: alert, anxious, in distress ENT exam: Present: mucous membranes dry Respiratory exam: Present: wheezes, decreased breath sounds Cardiovascular Exam: Present: tachycardia, irregular rhythm GI/Abdominal exam: Present: soft, other (Feeding tube is present) Extremities exam: Present: other Course Vital Signs 02/03/17 02/03/17 02/03/17 11:17 11:55 11:57 Temperature 100.7 F H 101.1 F H Pulse Rate 148 H 148 H 142 H Respiratory 24 18 Rate Blood Pressure 203/147 128/68 O2 Sat by Pulse 92 L Oximetry 02/03/17 02/03/17 02/03/17 12:08 12:14 13:13 Temperature Pulse Rate 146 H 162 H 76 Respiratory 18 28 H 19 Rate Blood Pressure 129/83 168/79 O2 Sat by Pulse 93 L 90 L Oximetry 02/03/17 02/03/17 02/03/17 13:22 14:15 15:09 Temperature 99.9 F H 100.9 F H 99.0 F Pulse Rate 160 H 125 H Respiratory 22 18 Rate Blood Pressure 109/71 131/71 O2 Sat by Pulse 93 L 94 L Oximetry 02/03/17 15:55 Temperature Pulse Rate 106 H Respiratory 22 Rate Blood Pressure 124/66 O2 Sat by Pulse 94 L Oximetry - Reevaluation(s) Reevaluation #1: 02/03/17 16:43 Repeat EKG showed a sinus rhythm of 101 SD interval 124 QRS duration 4 daily since QTC of 340/440 Medical Decision Making - Medical Decision Making I did discuss findings with the patient did reevaluate him on several occasions. Patient was seen by Dr. Barrientos in emergency department patient be admitted with consultation by oncology. Also cardiology. - Lab Data Result diagrams: 02/03/17 11:26 02/03/17 11:26 Lab Results 08/29/17 08/29/17 08/29/17 Range/Units 11:26 11:26 11:26 WBC 28.4 H* (3.8-10.6) k/uL RBC 3.97 L (4.30-5.90) m/uL Hgb 11.1 L (13.0-17.5) gm/dL Hct 36.4 L (39.0-53.0) % MCV 91.8 (80.0-100.0) fL MCH 27.9 (25.0-35.0) pg MCHC 30.4 L (31.0-37.0) g/dL RDW 23.4 H (11.5-15.5) % Plt Count 353 D (150-450) k/uL Neutrophils % (Manual) 39 % Band Neutrophils % 1 % Lymphocytes % (Manual) 52 % Monocytes % (Manual) 7 % Eosinophils % (Manual) 1 % Neutrophils # (Manual) 11.30 H (1.3-7.7) k/uL Lymphocytes # (Manual) 14.77 H (1.0-4.8) k/uL Monocytes # (Manual) 1.99 H (0-1.0) k/uL Eosinophils # (Manual) 0.28 (0-0.7) k/uL Nucleated RBCs 0 (0-0) /100 WBC Manual Slide Review Performed Polychromasia Present Hypochromasia Moderate Poikilocytosis (manual Present Anisocytosis Moderate Macrocytosis Slight PT (9.0-12.0) sec INR (<1.2) APTT (22.0-30.0) sec Sodium 139 (137-145) mmol/L Potassium 5.5 H (3.5-5.1) mmol/L Chloride 101 (98-107) mmol/L Carbon Dioxide 30 (22-30) mmol/L Anion Gap 8 mmol/L BUN 28 H (9-20) mg/dL Creatinine 0.83 (0.66-1.25) mg/dL Est GFR (MDRD) Af Amer >60 (>60 ml/min/1.73 sqM) Est GFR (MDRD) Non-Af >60 (>60 ml/min/1.73 sqM) Glucose 115 H (74-99) mg/dL Plasma Lactic Acid Jason (0.7-2.0) mmol/L Calcium 8.8 (8.4-10.2) mg/dL Magnesium 2.0 (1.6-2.3) mg/dL Total Bilirubin 0.6 (0.2-1.3) mg/dL AST 41 (17-59) U/L ALT 67 (21-72) U/L Alkaline Phosphatase 101 (38-126) U/L Total Creatine Kinase <20 L (55-170) U/L CK-MB (CK-2) 0.6 (0.0-2.4) ng/mL CK-MB (CK-2) Rel Index Troponin I <0.012 (0.000-0.034) ng/mL NT-Pro-B Natriuret Pep pg/mL Total Protein 5.9 L (6.3-8.2) g/dL Albumin 3.6 (3.5-5.0) g/dL 02/03/17 02/03/17 02/03/17 Range/Units 11:26 11:26 11:26 WBC (3.8-10.6) k/uL RBC (4.30-5.90) m/uL Hgb (13.0-17.5) gm/dL Hct (39.0-53.0) % MCV (80.0-100.0) fL MCH (25.0-35.0) pg MCHC (31.0-37.0) g/dL RDW (11.5-15.5) % Plt Count (150-450) k/uL Neutrophils % (Manual) % Band Neutrophils % % Lymphocytes % (Manual) % Monocytes % (Manual) % Eosinophils % (Manual) % Neutrophils # (Manual) (1.3-7.7) k/uL Lymphocytes # (Manual) (1.0-4.8) k/uL Monocytes # (Manual) (0-1.0) k/uL Eosinophils # (Manual) (0-0.7) k/uL Nucleated RBCs (0-0) /100 WBC Manual Slide Review Polychromasia Hypochromasia Poikilocytosis (manual Anisocytosis Macrocytosis PT 11.6 (9.0-12.0) sec INR 1.2 H (<1.2) APTT 22.6 (22.0-30.0) sec Sodium (137-145) mmol/L Potassium (3.5-5.1) mmol/L Chloride (98-107) mmol/L Carbon Dioxide (22-30) mmol/L Anion Gap mmol/L BUN (9-20) mg/dL Creatinine (0.66-1.25) mg/dL Est GFR (MDRD) Af Amer (>60 ml/min/1.73 sqM) Est GFR (MDRD) Non-Af (>60 ml/min/1.73 sqM) Glucose (74-99) mg/dL Plasma Lactic Acid Jason 1.1 (0.7-2.0) mmol/L Calcium (8.4-10.2) mg/dL Magnesium (1.6-2.3) mg/dL Total Bilirubin (0.2-1.3) mg/dL AST (17-59) U/L ALT (21-72) U/L Alkaline Phosphatase (38-126) U/L Total Creatine Kinase (55-170) U/L CK-MB (CK-2) (0.0-2.4) ng/mL CK-MB (CK-2) Rel Index Troponin I (0.000-0.034) ng/mL NT-Pro-B Natriuret Pep 1240 pg/mL Total Protein (6.3-8.2) g/dL Albumin (3.5-5.0) g/dL - EKG Data -: EKG Interpreted by Me (Atrial flutter rate 149 QRS 90 QT since QTC of 320/ [address] [facility]) - Radiology Data Radiology results: report reviewed (Did review the imaging there is evidence of COPD), image reviewed Critical Care Time Critical Care Time: Yes Critical Care Time: 35 minutes of critical care time which includes initial monitoring of the EMS call discussed with paramedics history physical labs x-rays multiple reevaluation of the patient discuss the patient family admission orders discussed with the admitting physician. Documentation of the above Disposition Clinical Impression: Atrial flutter with rapid ventricular response, Febrile illness, acute, Leukemia, COPD (chronic obstructive pulmonary disease) Disposition: ADMITTED IP TO THIS HOSP Condition: Stable Referrals: None,Stated [Primary Care Provider] - 1-2 days
--- NOTE | 2017-02-03 11:50 | XR ---
EXAMINATION TYPE: XR chest 2V DATE OF EXAM: 02/03/2017 COMPARISON: 12/22/2016 TECHNIQUE: PA and lateral views submitted. HISTORY: Shortness of breath FINDINGS: The lungs are clear and there is no pneumothorax, pleural effusion, or focal pneumonia. Hyperinflat ion suggests COPD. Drainage catheter in the abdomen noted. Degenerative change of the spine. IMPRESSION: 1. COPD.
[2017-02-03 11:51] LABS: ALT 67 U/L (21-72); AST 41 U/L (17-59); Alkaline Phosphatase 101 U/L (38-126); Anion Gap 8 mmol/L; Blood Urea Nitrogen 28 mg/dL (9-20); Calcium 8.8 mg/dL (8.4-10.2); Carbon Dioxide 30 mmol/L (22-30); Chloride 101 mmol/L (98-107); Glucose 115 mg/dL (74-99); Non-African American GFR(MDRD) >60 (>60 ml/min/1.73 sqM); Potassium 5.5 mmol/L (3.5-5.1); Sodium 139 mmol/L (137-145); Total Bilirubin 0.6 mg/dL (0.2-1.3); Total Protein 5.9 g/dL (6.3-8.2)
[2017-02-03 11:55] LABS: Anisocytosis Moderate; Aty Lym Flag Moderate; CH 28.1; CHCM 30.9; HCT 36.4 % (39.0-53.0); HDW 3.03; HGB 11.1 gm/dL (13.0-17.5); Hypochromasia Moderate; MCH 27.9 pg (25.0-35.0); MCHC 30.4 g/dL (31.0-37.0); MCV 91.8 fL (80.0-100.0); Macrocytosis Slight; Mean Platelet Volume 7.7; RBC 3.97 m/uL (4.30-5.90); RDW 23.4 % (11.5-15.5); WBC (Perox) 26.87
[2017-02-03 12:00] LABS: WBC 28.4 k/uL (3.8-10.6)
[2017-02-03 12:05] LABS: Creatine Kinase <20 U/L (55-170)
[2017-02-03 12:10] LABS: INR 1.2 (<1.2); Partial Thromboplastin Time 22.6 sec (22.0-30.0); Prothrombin Time 11.6 sec (9.0-12.0)
[2017-02-03 12:12] LABS: Add Differential Manual Differential
[2017-02-03 12:14] LABS: Band Neutrophils % 1 %; Nucleated Red Blood Cells 0 /100 WBC (0-0); Total Cells Counted 100
[2017-02-03 12:17] LABS: Manual Review Performed; Polychromasia Present
[2017-02-03 12:18] LABS: Creatine Kinase MB 0.6 ng/mL (0.0-2.4); Troponin I <0.012 ng/mL (0.000-0.034)
[2017-02-03] MEDS ORDERED: ACETAMINOPHEN IV (For NPO) 1,000 MG in EMPTY BAG 1 BAG IVPB ONE (12:21)
[2017-02-03] MEDS ORDERED: LORazepam 2 MG/ML SYRINGE IV STA (12:27)
[2017-02-03] MEDS ORDERED: SODIUM CHLORIDE 0.9% 1,000 ML IV STA (14:09)
[2017-02-03] MEDS ORDERED: NALOXONE 0.4 MG/ML 1 ML VIAL IV PRN (16:46)
--- NOTE | 2017-02-03 16:46 | ED ---
Medical Decision Making - Lab Data Result diagrams: 02/03/17 11:26 02/03/17 11:26 Lab Results 02/03/17 02/03/17 02/03/17 Range/Units 11:26 11:26 11:26 WBC 28.4 H* (3.8-10.6) k/uL RBC 3.97 L (4.30-5.90) m/uL Hgb 11.1 L (13.0-17.5) gm/dL Hct 36.4 L (39.0-53.0) % MCV 91.8 (80.0-100.0) fL MCH 27.9 (25.0-35.0) pg MCHC 30.4 L (31.0-37.0) g/dL RDW 23.4 H (11.5-15.5) % Plt Count 353 D (150-450) k/uL Neutrophils % (Manual) 39 % Band Neutrophils % 1 % Lymphocytes % (Manual) 52 % Monocytes % (Manual) 7 % Eosinophils % (Manual) 1 % Neutrophils # (Manual) 11.30 H (1.3-7.7) k/uL Lymphocytes # (Manual) 14.77 H (1.0-4.8) k/uL Monocytes # (Manual) 1.99 H (0-1.0) k/uL Eosinophils # (Manual) 0.28 (0-0.7) k/uL Nucleated RBCs 0 (0-0) /100 WBC Manual Slide Review Performed Polychromasia Present Hypochromasia Moderate Poikilocytosis (manual Present Anisocytosis Moderate Macrocytosis Slight PT (9.0-12.0) sec INR (<1.2) APTT (22.0-30.0) sec Sodium 139 (137-145) mmol/L Potassium 5.5 H (3.5-5.1) mmol/L Chloride 101 (98-107) mmol/L Carbon Dioxide 30 (22-30) mmol/L Anion Gap 8 mmol/L BUN 28 H (9-20) mg/dL Creatinine 0.83 (0.66-1.25) mg/dL Est GFR (MDRD) Af Amer >60 (>60 ml/min/1.73 sqM) Est GFR (MDRD) Non-Af >60 (>60 ml/min/1.73 sqM) Glucose 115 H (74-99) mg/dL Plasma Lactic Acid Jason (0.7-2.0) mmol/L Calcium 8.8 (8.4-10.2) mg/dL Magnesium 2.0 (1.6-2.3) mg/dL Total Bilirubin 0.6 (0.2-1.3) mg/dL AST 41 (17-59) U/L ALT 67 (21-72) U/L Alkaline Phosphatase 101 (38-126) U/L Total Creatine Kinase <20 L (55-170) U/L CK-MB (CK-2) 0.6 (0.0-2.4) ng/mL CK-MB (CK-2) Rel Index Troponin I <0.012 (0.000-0.034) ng/mL NT-Pro-B Natriuret Pep pg/mL Total Protein 5.9 L (6.3-8.2) g/dL Albumin 3.6 (3.5-5.0) g/dL 02/03/17 02/03/17 02/03/17 Range/Units 11:26 11:26 11:26 WBC (3.8-10.6) k/uL RBC (4.30-5.90) m/uL Hgb (13.0-17.5) gm/dL Hct (39.0-53.0) % MCV (80.0-100.0) fL MCH (25.0-35.0) pg MCHC (31.0-37.0) g/dL RDW (11.5-15.5) % Plt Count (150-450) k/uL Neutrophils % (Manual) % Band Neutrophils % % Lymphocytes % (Manual) % Monocytes % (Manual) % Eosinophils % (Manual) % Neutrophils # (Manual) (1.3-7.7) k/uL Lymphocytes # (Manual) (1.0-4.8) k/uL Monocytes # (Manual) (0-1.0) k/uL Eosinophils # (Manual) (0-0.7) k/uL Nucleated RBCs (0-0) /100 WBC Manual Slide Review Polychromasia Hypochromasia Poikilocytosis (manual Anisocytosis Macrocytosis PT 11.6 (9.0-12.0) sec INR 1.2 H (<1.2) APTT 22.6 (22.0-30.0) sec Sodium (137-145) mmol/L Potassium (3.5-5.1) mmol/L Chloride (98-107) mmol/L Carbon Dioxide (22-30) mmol/L Anion Gap mmol/L BUN (9-20) mg/dL Creatinine (0.66-1.25) mg/dL Est GFR (MDRD) Af Amer (>60 ml/min/1.73 sqM) Est GFR (MDRD) Non-Af (>60 ml/min/1.73 sqM) Glucose (74-99) mg/dL Plasma Lactic Acid Jason 1.1 (0.7-2.0) mmol/L Calcium (8.4-10.2) mg/dL Magnesium (1.6-2.3) mg/dL Total Bilirubin (0.2-1.3) mg/dL AST (17-59) U/L ALT (21-72) U/L Alkaline Phosphatase (38-126) U/L Total Creatine Kinase (55-170) U/L CK-MB (CK-2) (0.0-2.4) ng/mL CK-MB (CK-2) Rel Index Troponin I (0.000-0.034) ng/mL NT-Pro-B Natriuret Pep 1240 pg/mL Total Protein (6.3-8.2) g/dL Albumin (3.5-5.0) g/dL Disposition Clinical Impression: Atrial flutter with rapid ventricular response, Febrile illness, acute, Leukemia, COPD (chronic obstructive pulmonary disease) Disposition: ADMITTED IP TO THIS HOSP Condition: Stable Referrals: None,Stated [Primary Care Provider] - 1-2 days Decision Time: 15:30
[2017-02-03] MEDS: SODIUM CHLORIDE 0.9% 1,000 ML IV SCH (17:11)
--- NOTE | 2017-02-03 17:56 | P.HPIM ---
History of Present Illness 76-year-old male presented to the emergency room with increasing shortness of breath or cough. Patient's was in [facility] 4 days ago was treated for pneumonia, developed shingles, developed Fletcher's palsy, patient unable to swallow his feeding tube. History of lymphocytic leukemia. On arrival patient was in atrial flutter has converted to sinus rhythm Review of Systems Constitutional: Reports fatigue Cardiovascular: Reports irregular heart beat Respiratory: Reports cough Past Medical History Past Medical History: Cancer, Pneumonia, Prostate Disorder, Thyroid Disorder Additional Past Medical History / Comment(s): CHRONIC LYMPHOCYTIC LEUKEMIA, CHRONIC BRONCHITIS/COPD History of Any Multi-Drug Resistant Organisms: None Reported Additional Past Surgical History / Comment(s): THYROID SURGERY Past Anesthesia/Blood Transfusion Reactions: Blood Transfusion Reaction Additional Past Anesthesia/Blood Transfusion Reaction / Comment(s): GAVE BENADRYL AND RAN SLOW. Has had multiple transfusuions and has a reaction every time Past Psychological History: No Psychological Hx Reported Smoking Status: Former smoker Additional Past Alcohol Use History / Comment(s): Patient was only a smoker for 5-6 years in the 1960s. No marijuana or street drug use. He and his winter in [place] and return to [place] for the oates. They have a [facility] terrier without any other animal exposures he currently lives on the [place]. Patient does normal yardwork but no extensive gardening or other hobbies. - Past Family History Father Family Medical History: Dementia Mother Family Medical History: No Reported History Medications and Allergies Home Medications Medication Instructions Recorded Confirmed Type Budesonide/Formoterol Fumarate 2 puff INHALATION RT-BID 12/21/16 02/03/17 History [Symbicort 160-4.5 Mcg Inhaler] Levothyroxine Sodium [Synthroid] 125 mcg PO DAILY 12/21/16 02/03/17 History Multivitamins, Thera [Multivitamin 1 tab PO DAILY 12/21/16 02/03/17 History (formulary)] Allergies Allergy/AdvReac Type Severity Reaction Status Date / Time amoxicillin Allergy Rash/Hives Verified 02/03/17 12:22 Physical Exam Vitals: Vital Signs Temp Pulse Resp BP Pulse Ox 02/03/17 15:55 106 H 22 124/66 94 L 02/03/17 15:09 99.0 F 125 H 18 131/71 94 L 02/03/17 14:15 100.9 F H 160 H 22 109/71 93 L 02/03/17 13:22 99.9 F H 02/03/17 13:13 76 19 168/79 90 L 02/03/17 12:14 162 H 28 H 129/83 93 L 02/03/17 12:08 146 H 18 02/03/17 11:57 142 H 02/03/17 11:55 101.1 F H 148 H 18 128/68 92 L 02/03/17 11:17 100.7 F H 148 H 24 203/147 Intake and Output 02/03/17 02/03/17 02/03/17 06:59 14:59 22:59 Other: Weight 79.832 kg Patient Weight 02/04/17 06:59 Weight 79.832 kg - Constitutional General appearance: average body habitus, mild distress - EENT Eyes: PERRLA Ears: bilateral: normal - Neck Neck: normal ROM - Respiratory Respiratory: bilateral: diminished, wheezing - Cardiovascular Rhythm: regular - Gastrointestinal Feeding tube in place General gastrointestinal: soft - Integumentary Healing lesions to right-sided body from Integumentary: normal - Neurologic Left-sided facial droop from Fletcher's palsy - Psychiatric Patient lethargic and hard of hearing difficult to assess level of consciousness. Although patient is easily arousable Results CBC & Chem 7: 02/03/17 11:26 02/03/17 11:26 Labs: Abnormal Lab Results - Last 24 Hours (Table) 02/03/17 02/03/17 02/03/17 Range/Units 11:26 11:26 11:26 WBC 28.4 H* (3.8-10.6) k/uL RBC 3.97 L (4.30-5.90) m/uL Hgb 11.1 L (13.0-17.5) gm/dL Hct 36.4 L (39.0-53.0) % MCHC 30.4 L (31.0-37.0) g/dL RDW 23.4 H (11.5-15.5) % Neutrophils # (Manual) 11.30 H (1.3-7.7) k/uL Lymphocytes # (Manual) 14.77 H (1.0-4.8) k/uL Monocytes # (Manual) 1.99 H (0-1.0) k/uL INR (<1.2) Potassium 5.5 H (3.5-5.1) mmol/L BUN 28 H (9-20) mg/dL Glucose 115 H (74-99) mg/dL Total Creatine Kinase <20 L (55-170) U/L Total Protein 5.9 L (6.3-8.2) g/dL 02/03/17 Range/Units 11:26 WBC (3.8-10.6) k/uL RBC (4.30-5.90) m/uL Hgb (13.0-17.5) gm/dL Hct (39.0-53.0) % MCHC (31.0-37.0) g/dL RDW (11.5-15.5) % Neutrophils # (Manual) (1.3-7.7) k/uL Lymphocytes # (Manual) (1.0-4.8) k/uL Monocytes # (Manual) (0-1.0) k/uL INR 1.2 H (<1.2) Potassium (3.5-5.1) mmol/L BUN (9-20) mg/dL Glucose (74-99) mg/dL Total Creatine Kinase (55-170) U/L Total Protein (6.3-8.2) g/dL Chest x-ray: report reviewed Assessment and Plan Plan: Assessment COPD Atrial flutter has converted to sinus rhythm Hypothyroidism Chronic lymphocytic leukemia Feeding tube in place History of Fletcher's palsy History of recent pneumonia Herpes zoster recent Plan cardiology consultation Pulmonology consultation Rocephin initiated
[2017-02-03 18:12] LABS: Glucose,Whole Blood 104 mg/dL (75-99)
[2017-02-03 21:01] LABS: Glucose,Whole Blood 105 mg/dL (75-99)
[2017-02-03] MEDS: SYMBICORT 160-4.5 MCG INHALER INHALATION SCH (21:03)
[2017-02-03] MEDS: LORazepam 2 MG/ML SYRINGE IV PRN ×2 (22:57→22:58)
--- NOTE | 2017-02-04 04:22 | XR ---
PROCEDURE: FILM CXR 1 VIEW HISTORY: 76-year-old male with shortness of breath. COMPARISON: Chest radiograph 02/03/2017 at 1141 TECHNIQUE: Frontal view of the chest was obtained. FINDINGS: Limited by technique. Cardiomediastinal silhouette is stable. Peribronchial cuffing, likely due to bronchitis. Pulmonary edema is in the differential. Hazy and somewhat nodular densities in the left perihilar region, may be due to developing pneumonia. Followup to clearing. Bones are similar to prior. IMPRESSION: Peribronchial cuffing, likely due to bronchitis. Pulmonary edema is in the differential. Hazy and somewhat nodular densities in the left perihilar region, may be due to developing pneumonia in the appropriate clinical setting. Followup to clearing.
[2017-02-04 04:32] LABS: Appearance,Urine Cloudy (Clear); Bilirubin,Urine Negative (Negative); Glucose,Urine (UA) Negative (Negative); Ketones,Urine Trace (Negative); Leukocyte Esterase,Urine Negative (Negative); Mucus,Urine Rare /hpf; Nitrite,Urine Negative (Negative); Particle Count 1811; Protein,Urine Negative (Negative); RBC,Urine <1 /hpf (0-5); Specific Gravity,Urine 1.012 (1.001-1.035); UA Billing (MACRO vs. MICRO) MICRO; Uric Acid Crystals,Urine Rare /hpf; Urobilinogen,Urine <2.0 mg/dL (<2.0); WBC,Urine 1 /hpf (0-5)
[2017-02-04 05:35] LABS: Glucose,Whole Blood 125 mg/dL (75-99)
[2017-02-04] MEDS: LEVOTHYROXINE 125 MCG TAB PO SCH (06:51)
[2017-02-04] MEDS: SODIUM CHLORIDE 0.9% 1,000 ML IV SCH ×2 (06:53→18:15)
[2017-02-04] MEDS: SYMBICORT 160-4.5 MCG INHALER INHALATION SCH (09:14)
[2017-02-04 09:29] LABS: Anisocytosis Moderate; Aty Lym Flag Moderate; CH 27.7; CHCM 29.6; HCT 34.6 % (39.0-53.0); HDW 2.97; Hypochromasia Marked; MCH 27.3 pg (25.0-35.0); MCHC 28.9 g/dL (31.0-37.0); MCV 94.7 fL (80.0-100.0); Macrocytosis Moderate; Mean Platelet Volume 7.5; RBC 3.66 m/uL (4.30-5.90); RDW 23.3 % (11.5-15.5); WBC 17.4 k/uL (3.8-10.6); WBC (Perox) 17.67
[2017-02-04 09:56] LABS: ALT 56 U/L (21-72); AST 34 U/L (17-59); Alkaline Phosphatase 85 U/L (38-126); Anion Gap 5 mmol/L; Blood Urea Nitrogen 25 mg/dL (9-20); Calcium 8.3 mg/dL (8.4-10.2); Carbon Dioxide 34 mmol/L (22-30); Chloride 103 mmol/L (98-107); Glucose 120 mg/dL (74-99); Non-African American GFR(MDRD) >60 (>60 ml/min/1.73 sqM); Potassium 5.1 mmol/L (3.5-5.1); Sodium 142 mmol/L (137-145); Total Bilirubin 0.4 mg/dL (0.2-1.3); Total Protein 5.2 g/dL (6.3-8.2)
--- NOTE | 2017-02-04 10:34 | P.PN ---
Subjective Patient sitting up in bed appears to be more responsive than last night. Awaiting consultation with pulmonology cardiology and oncology Objective - Vital Signs Vital signs: Vital Signs Temp 99.0 F 02/04/17 08:10 Pulse 95 02/04/17 08:10 Resp 24 02/04/17 08:10 BP 148/70 02/04/17 08:10 Pulse Ox 94 L 02/04/17 08:10 Intake & Output 02/03/17 02/04/17 02/04/17 18:59 06:59 18:59 Output Total 650 Balance -650 Weight 79.832 kg 79 kg Output: Urine 650 Other: Voiding Method Urinal - Constitutional General appearance: Present: mild distress - EENT Eyes: Present: PERRLA, ptosis ENT: Present: hard of hearing Ears: bilateral: normal - Neck Neck: Present: normal ROM - Respiratory Respiratory: left: rales, bilateral: diminished - Cardiovascular Rhythm: irregularly irregular - Integumentary Integumentary Comment(s): Healing herpes zoster rash right side Integumentary: Present: normal - Neurologic Neurologic Comment(s): Left-sided facial droop secondary to Fletcher's palsy - Musculoskeletal Musculoskeletal: Present: generalized weakness - Psychiatric Psychiatric: Present: A&O x's 3, appropriate affect, intact judgment & insight - Labs CBC & Chem 7: 02/04/17 09:13 02/04/17 09:13 Labs: Abnormal Lab Results - Last 24 Hours (Table) 02/03/17 02/03/17 02/03/17 Range/Units 11:26 11:26 11:26 WBC 28.4 H* (3.8-10.6) k/uL RBC 3.97 L (4.30-5.90) m/uL Hgb 11.1 L (13.0-17.5) gm/dL Hct 36.4 L (39.0-53.0) % MCHC 30.4 L (31.0-37.0) g/dL RDW 23.4 H (11.5-15.5) % Neutrophils # (Manual) 11.30 H (1.3-7.7) k/uL Lymphocytes # (Manual) 14.77 H (1.0-4.8) k/uL Monocytes # (Manual) 1.99 H (0-1.0) k/uL INR (<1.2) Potassium 5.5 H (3.5-5.1) mmol/L Carbon Dioxide (22-30) mmol/L BUN 28 H (9-20) mg/dL Glucose 115 H (74-99) mg/dL POC Glucose (mg/dL) (75-99) mg/dL Calcium (8.4-10.2) mg/dL Total Creatine Kinase <20 L (55-170) U/L Total Protein 5.9 L (6.3-8.2) g/dL Albumin (3.5-5.0) g/dL Urine Ketones (Negative) Uric Acid Crystals (None) /hpf Urine Mucus (None) /hpf 02/03/17 02/03/17 02/03/17 Range/Units 11:26 18:11 20:59 WBC (3.8-10.6) k/uL RBC (4.30-5.90) m/uL Hgb (13.0-17.5) gm/dL Hct (39.0-53.0) % MCHC (31.0-37.0) g/dL RDW (11.5-15.5) % Neutrophils # (Manual) (1.3-7.7) k/uL Lymphocytes # (Manual) (1.0-4.8) k/uL Monocytes # (Manual) (0-1.0) k/uL INR 1.2 H (<1.2) Potassium (3.5-5.1) mmol/L Carbon Dioxide (22-30) mmol/L BUN (9-20) mg/dL Glucose (74-99) mg/dL POC Glucose (mg/dL) 104 H 105 H (75-99) mg/dL Calcium (8.4-10.2) mg/dL Total Creatine Kinase (55-170) U/L Total Protein (6.3-8.2) g/dL Albumin (3.5-5.0) g/dL Urine Ketones (Negative) Uric Acid Crystals (None) /hpf Urine Mucus (None) /hpf 02/04/17 02/04/17 02/04/17 Range/Units 04:20 05:33 09:13 WBC 17.4 H (3.8-10.6) k/uL RBC 3.66 L (4.30-5.90) m/uL Hgb 10.0 L (13.0-17.5) gm/dL Hct 34.6 L (39.0-53.0) % MCHC 28.9 L (31.0-37.0) g/dL RDW 23.3 H (11.5-15.5) % Neutrophils # (Manual) (1.3-7.7) k/uL Lymphocytes # (Manual) (1.0-4.8) k/uL Monocytes # (Manual) (0-1.0) k/uL INR (<1.2) Potassium (3.5-5.1) mmol/L Carbon Dioxide (22-30) mmol/L BUN (9-20) mg/dL Glucose (74-99) mg/dL POC Glucose (mg/dL) 125 H (75-99) mg/dL Calcium (8.4-10.2) mg/dL Total Creatine Kinase (55-170) U/L Total Protein (6.3-8.2) g/dL Albumin (3.5-5.0) g/dL Urine Ketones Trace H (Negative) Uric Acid Crystals Rare H (None) /hpf Urine Mucus Rare H (None) /hpf 02/04/17 Range/Units 09:13 WBC (3.8-10.6) k/uL RBC (4.30-5.90) m/uL Hgb (13.0-17.5) gm/dL Hct (39.0-53.0) % MCHC (31.0-37.0) g/dL RDW (11.5-15.5) % Neutrophils # (Manual) (1.3-7.7) k/uL Lymphocytes # (Manual) (1.0-4.8) k/uL Monocytes # (Manual) (0-1.0) k/uL INR (<1.2) Potassium (3.5-5.1) mmol/L Carbon Dioxide 34 H (22-30) mmol/L BUN 25 H (9-20) mg/dL Glucose 120 H (74-99) mg/dL POC Glucose (mg/dL) (75-99) mg/dL Calcium 8.3 L (8.4-10.2) mg/dL Total Creatine Kinase (55-170) U/L Total Protein 5.2 L (6.3-8.2) g/dL Albumin 3.1 L (3.5-5.0) g/dL Urine Ketones (Negative) Uric Acid Crystals (None) /hpf Urine Mucus (None) /hpf - Imaging and Cardiology Chest x-ray: report reviewed Assessment and Plan Plan: Assessment Pneumonia Atrial flutter Acute on chronic COPD Hypothyroidism Chronic lymphocytic leukemia Gastric feeding tube in place Fletcher's palsy Herpes zoster Plan Rocephin restarted no noted rash from first infusion Consultation pulmonology regarding pneumonia Cardiology consultation Oncology consultation regarding leukemia
[2017-02-04 10:52] LABS: Add Differential Manual Differential
[2017-02-04 10:54] LABS: Manual Review Performed; Nucleated Red Blood Cells 0 /100 WBC (0-0); Total Cells Counted 100
[2017-02-04] MEDS: MULTIVITAMINS, THERA 1 EACH TAB PO SCH (13:01)
[2017-02-04] MEDS: IPRATROPIUM-ALBUTEROL 3 ML NEB INHALATION SCH ×3 (13:34→20:25)
[2017-02-04 14:07] LABS: Glucose,Whole Blood 122 mg/dL (75-99)
--- NOTE | 2017-02-04 14:14 | P.CRDCN ---
History of Present Illness History of present illness: 76-year-old male patient presenting with increasing shortness of breath and cough. For his back he was being treated for pneumonia at [facility]. He developed Fletcher's palsy any difficulty swallowing. First 12-lead ECG showed atrial flutter with a heart rate of 149 beats a minute. He is back in sinus rhythm. Poor historian but he denies any chest discomfort. He does state that he is still short of breath at this time he is in normal rhythm Past history of CLL, thyroid disorder, COPD Smoking history was brief no alcohol use Home medications include Synthroid and inhalers and multivitamin ALLERGIES to penicillin On examination temperature 99.3F blood pressure 145/69 mmHg heart rate 108 beats a minute respirations 26 Reduced breath sounds bilaterally with crackles at the bases Heart sounds No lower extremity edema Impression Episode of atrial flutter Resolved spontaneously Pneumonitis, resolving COPD CLL Plan Continue antibiotics Low-dose calcium channel blockers Patient is a candidate for anticoagulation because of an elevated MARICARMEN VASC core and a history of documented atrial flutter Past Medical History Past Medical History: Cancer, Pneumonia, Prostate Disorder, Thyroid Disorder Additional Past Medical History / Comment(s): CHRONIC LYMPHOCYTIC LEUKEMIA, CHRONIC BRONCHITIS/COPD History of Any Multi-Drug Resistant Organisms: None Reported Additional Past Surgical History / Comment(s): THYROID SURGERY Past Anesthesia/Blood Transfusion Reactions: Blood Transfusion Reaction Additional Past Anesthesia/Blood Transfusion Reaction / Comment(s): GAVE BENADRYL AND RAN SLOW. Has had multiple transfusuions and has a reaction every time Past Psychological History: No Psychological Hx Reported Smoking Status: Former smoker Additional Past Alcohol Use History / Comment(s): Patient was only a smoker for 5-6 years in the 1960s. No marijuana or street drug use. He and his winter in [place] and return to [place] for the oates. They have a [facility] terrier without any other animal exposures he currently lives on the [place]. Patient does normal yardwork but no extensive gardening or other hobbies. - Past Family History Father Family Medical History: Dementia Mother Family Medical History: No Reported History Medications and Allergies Home Medications Medication Instructions Recorded Confirmed Type Budesonide/Formoterol Fumarate 2 puff INHALATION RT-BID 12/21/16 02/03/17 History [Symbicort 160-4.5 Mcg Inhaler] Levothyroxine Sodium [Synthroid] 125 mcg PO DAILY 12/21/16 02/03/17 History Multivitamins, Thera [Multivitamin 1 tab PO DAILY 12/21/16 02/03/17 History (formulary)] Allergies Allergy/AdvReac Type Severity Reaction Status Date / Time amoxicillin Allergy Rash/Hives Verified 02/03/17 12:22 clavulanic acid Allergy Rash/Hives Verified 02/03/17 19:57 [From Augmentin] rituximab [From Rituxan] Allergy Anaphylaxis Verified 02/03/17 19:57 Physical Exam Vitals: Vital Signs Temp Pulse Pulse Pulse Resp BP BP 02/04/17 13:50 124 H 02/04/17 13:34 116 H 02/04/17 11:20 99.3 F 108 H 26 H 02/04/17 08:10 99.0 F 95 24 02/04/17 04:00 98.2 F 103 H 104 H 36 H 02/04/17 00:00 98.2 F 109 H 109 H 18 158/72 02/03/17 20:00 98.8 F 100 20 143/65 02/03/17 17:55 98.5 F 104 H 18 160/76 02/03/17 15:55 106 H 22 124/66 02/03/17 15:09 99.0 F 125 H 18 131/71 02/03/17 14:15 100.9 F H 160 H 22 109/71 BP Pulse Ox 02/04/17 13:50 02/04/17 13:34 02/04/17 11:20 145/69 93 L 02/04/17 08:10 148/70 94 L 02/04/17 04:00 140/71 94 L 02/04/17 00:00 150/71 93 L 02/03/17 20:00 94 L 02/03/17 17:55 94 L 02/03/17 15:55 94 L 02/03/17 15:09 94 L 02/03/17 14:15 93 L Intake and Output 02/03/17 02/04/17 02/04/17 22:59 06:59 14:59 Output Total 450 200 100 Balance -450 -200 -100 Output: Urine 450 200 100 Other: Voiding Method Urinal Weight 79.832 kg 79 kg 79 kg Patient Weight 02/05/17 06:59 Weight 79 kg Results 02/04/17 09:13 08/30/17 09:13 Cardiac Enzymes 02/04/17 Range/Units 09:13 AST 34 (17-59) U/L CBC 02/04/17 Range/Units 09:13 WBC 17.4 H (3.8-10.6) k/uL RBC 3.66 L (4.30-5.90) m/uL Hgb 10.0 L (13.0-17.5) gm/dL Hct 34.6 L (39.0-53.0) % Plt Count 289 (150-450) k/uL Comprehensive Metabolic Panel 02/04/17 Range/Units 09:13 Sodium 142 (137-145) mmol/L Potassium 5.1 (3.5-5.1) mmol/L Chloride 103 (98-107) mmol/L Carbon Dioxide 34 H (22-30) mmol/L BUN 25 H (9-20) mg/dL Creatinine 0.82 (0.66-1.25) mg/dL Glucose 120 H (74-99) mg/dL Calcium 8.3 L (8.4-10.2) mg/dL AST 34 (17-59) U/L ALT 56 (21-72) U/L Alkaline Phosphatase 85 (38-126) U/L Total Protein 5.2 L (6.3-8.2) g/dL Albumin 3.1 L (3.5-5.0) g/dL Current Medications Generic Name Dose Route Start Last Admin Trade Name Freq PRN Reason Stop Dose Admin Albuterol/Ipratropium 3 ml 02/04/17 16:00 02/04/17 13:34 Duoneb 0.5 Mg-3 Mg/3 Ml Soln INHALATION 3 ml RT-QID WILFRID Administration Budesonide 0.5 mg 02/04/17 20:00 Pulmicort INHALATION RT-BID WILFRID Diltiazem HCl 30 mg 02/04/17 16:00 Cardizem Oral PO TID WILFRID Formoterol Fumarate 20 mcg 02/04/17 20:00 Perforomist INHALATION RT-BID WILFRID Sodium Chloride 1,000 mls @ 80 mls/hr 02/03/17 17:00 02/04/17 06:53 Saline 0.9% IV 80 mls/hr .[id number] WILFRID Administration Ceftriaxone Sodium 1,000 mg/ 50 mls @ 100 mls/hr 02/04/17 16:00 Sodium Chloride IVPB Q24H WILFRID Levothyroxine Sodium 125 mcg 02/04/17 06:30 02/04/17 06:51 Synthroid PO 125 mcg DAILY@0630 WILFRID Administration Lorazepam 1 mg 02/03/17 19:17 02/03/17 22:58 Ativan IV 1 mg Q4HR PRN Administration Anxiety Multivitamins 1 each 02/04/17 12:00 02/04/17 13:01 Theragran PO 1 each DAILY@1200 WILFRID Administration Naloxone HCl 0.2 mg 02/03/17 16:46 Narcan IV Q2M PRN Opioid Reversal Ondansetron HCl 4 mg 02/03/17 16:46 Zofran IVP Q8HR PRN Nausea And Vomiting Intake and Output 02/03/17 02/04/17 02/04/17 22:59 06:59 14:59 Output Total 450 200 100 Balance -450 -200 -100 Output: Urine 450 200 100 Other: Voiding Method Urinal Weight 79.832 kg 79 kg 79 kg Patient Weight 02/05/17 06:59 Weight 79 kg 02/04/17 09:13 02/04/17 09:13
[2017-02-04] MEDS: DILTIAZEM ORAL 30 MG TAB PO SCH ×2 (15:09→21:00)
--- NOTE | 2017-02-04 15:50 | P.CNPUL ---
History of Present Illness Consult date: 02/04/17 Reason for consult: dyspnea, COPD History of present illness: 76-year-old male patient presented to the emergency department with increased shortness of breath, cough, chest tightness and wheezing. The patient was treated recently at [facility] for pneumonia. He was also given diagnosis of Fletcher's palsy. He was also found to have difficulty in swallowing and he was given a PEG tube for enteral feeding and nutritional support. His chest x-rays have any acute pulmonary infiltrates. The patient is bronchospastic and wheezy and he was started on a combination of bronchodilators and systemic steroids will be also added. No significant sputum production. No clear-cut history of aspiration of food material. This patient is known to have COPD. He is also known to have chronic lymphocytic leukemia who has been followed up by Dr Bradshaw on an outpatient basis. The patient lives in [place] and he goes to [facility]. The patient's CLL has been essentially stable. The patient did not have any indication for therapy and his been monitored clinically. He also has COPD. He has been seen by a door installer in [place], and he has undergone a pulmonary function test and he was told that his lung capacities in order of 50% . I'm assuming his FEV1 is in the range of 50%. The patient was given Symbicort 160/4.5, 2 puffs twice daily regarding maintenance therapy for COPD. Denies having any recurrent exacerbations. Denies having any major pulmonary complications from the COPD. Patient [facility] in December 2016. At that time he was having difficulties with swallowing and soreness in his throat and tongue and change in his voice along with some difficulties in swallowing and speech. He was also having persistent fever and he developed a body rash which probably at a later stage attributed to be related to a viral infection/questionable chickenpox an immune compromised patient knowing that the skin lesion that was taken do not to be positive for VZV virus. The patient also has chronic atrial fibrillation and he was treated in the past for A. fib/RVR. He is having the same issue for now is currently on Cardizem drip at 5 mg an hour. Echocardiogram showed mild concentric hypertrophy. He has an ejection fraction of 55%. Mild MR and mild TR. No vegetations. Review of Systems Constitutional: Reports lethargy, Reports poor appetite, Reports weakness Eyes: denies blurred vision, denies bulging eye, denies decreased vision Ears: left: earache, tinnitus, bilateral: decreased hearing Ears, nose, mouth and throat: Reports as per HPI, Reports dysphagia Cardiovascular: Reports palpitations Respiratory: Reports cough, Reports dyspnea, Reports wheezing Gastrointestinal: Reports as per HPI Genitourinary: Reports as per HPI Musculoskeletal: Reports as per HPI Musculoskeletal: absent: ankle pain, ankle stiffness, ankle swelling Integumentary: Denies pruritus, Denies rash Neurological: Reports as per HPI, Reports change in mentation, Reports weakness Endocrine: Denies fatigue, Denies weight change Past Medical History Past Medical History: Cancer, Pneumonia, Prostate Disorder, Thyroid Disorder Additional Past Medical History / Comment(s): Chronic lymphocytic leukemia, COPD /chronic bronchitis, paroxysmal atrial fibrillation, hypothyroidism, viral skin rash- chickenpox rash, Fletcher's palsy, History of Any Multi-Drug Resistant Organisms: None Reported Additional Past Surgical History / Comment(s): THYROID SURGERY Past Anesthesia/Blood Transfusion Reactions: Blood Transfusion Reaction Additional Past Anesthesia/Blood Transfusion Reaction / Comment(s): GAVE BENADRYL AND RAN SLOW. Has had multiple transfusuions and has a reaction every time Past Psychological History: No Psychological Hx Reported Smoking Status: Former smoker Additional Past Alcohol Use History / Comment(s): Patient was only a smoker for 5-6 years in the 1960s. No marijuana or street drug use. He and his winter in [place] and return to [place] for the oates. They have a [facility] terrier without any other animal exposures he currently lives on the [place]. Patient does normal yardwork but no extensive gardening or other hobbies. - Past Family History Father Family Medical History: Dementia Mother Family Medical History: No Reported History Medications and Allergies Home Medications Medication Instructions Recorded Confirmed Type Budesonide/Formoterol Fumarate 2 puff INHALATION RT-BID 12/21/16 02/03/17 History [Symbicort 160-4.5 Mcg Inhaler] Levothyroxine Sodium [Synthroid] 125 mcg PO DAILY 12/21/16 02/03/17 History Multivitamins, Thera [Multivitamin 1 tab PO DAILY 12/21/16 02/03/17 History (formulary)] Allergies Allergy/AdvReac Type Severity Reaction Status Date / Time amoxicillin Allergy Rash/Hives Verified 02/03/17 12:22 clavulanic acid Allergy Rash/Hives Verified 02/03/17 19:57 [From Augmentin] rituximab [From Rituxan] Allergy Anaphylaxis Verified 02/03/17 19:57 Physical Exam Vitals: Vital Signs Temp Pulse Pulse Pulse Resp BP BP 02/04/17 13:50 124 H 02/04/17 13:34 116 H 02/04/17 11:20 99.3 F 108 H 26 H 02/04/17 08:10 99.0 F 95 24 02/04/17 04:00 98.2 F 103 H 104 H 36 H 02/04/17 00:00 98.2 F 109 H 109 H 18 158/72 02/03/17 20:00 98.8 F 100 20 143/65 02/03/17 17:55 98.5 F 104 H 18 160/76 02/03/17 15:55 106 H 22 124/66 BP Pulse Ox 02/04/17 13:50 02/04/17 13:34 02/04/17 11:20 145/69 93 L 02/04/17 08:10 148/70 94 L 02/04/17 04:00 140/71 94 L 02/04/17 00:00 150/71 93 L 02/03/17 20:00 94 L 02/03/17 17:55 94 L 02/03/17 15:55 94 L Intake and Output 02/04/17 02/04/17 02/04/17 06:59 14:59 22:59 Output Total 200 100 Balance -200 -100 Output: Urine 200 100 Other: Voiding Method Urinal Weight 79 kg 79 kg Patient Weight 02/05/17 06:59 Weight 79 kg The patient is a mild degree of Restoril distress even at rest. He is not using excessive muscle breathing. There is atraumatic normocephalic and the patient has a facial asymmetry with left-sided weakness related to Fletcher's palsy. There is increased salivation lacrimation so the left eye. Neck is supple and there is no JVDs no goiter or neck masses. Lungs sounds are diminished and there is diffuse expiratory wheezes total lung his bilaterally and there is prolongation of expiratory phase of breathing. Heart sounds are irregular, possible sinus stool, no cervical murmurs appreciated.Abdominal exam revealed normal bowel sounds. The abdomen was soft, non-tender, and without masses, organomegaly, or appreciable enlargement of the abdominal aorta.Examination of the extremities revealed easily palpable radial, femoral and pedal pulses. There was no cyanosis, clubbing or edema. Results - Laboratory Findings CBC and BMP: 02/04/17 09:13 02/04/17 09:13 PT/INR, D-dimer PT 11.6 sec (9.0-12.0) 02/03/17 11:26 INR 1.2 (<1.2) H 02/03/17 11:26 Abnormal lab findings: Abnormal Labs 02/03/17 02/03/17 02/03/17 11:26 11:26 11:26 WBC 28.4 H* RBC 3.97 L Hgb 11.1 L Hct 36.4 L MCHC 30.4 L RDW 23.4 H Neutrophils # (Manual) 11.30 H Lymphocytes # (Manual) 14.77 H Monocytes # (Manual) 1.99 H INR Potassium 5.5 H Carbon Dioxide BUN 28 H Glucose 115 H POC Glucose (mg/dL) Calcium Total Creatine Kinase <20 L Total Protein 5.9 L Albumin Urine Ketones Uric Acid Crystals Urine Mucus 02/03/17 02/03/17 02/03/17 11:26 18:11 20:59 WBC RBC Hgb Hct MCHC RDW Neutrophils # (Manual) Lymphocytes # (Manual) Monocytes # (Manual) INR 1.2 H Potassium Carbon Dioxide BUN Glucose POC Glucose (mg/dL) 104 H 105 H Calcium Total Creatine Kinase Total Protein Albumin Urine Ketones Uric Acid Crystals Urine Mucus 02/04/17 02/04/17 02/04/17 04:20 05:33 09:13 WBC 17.4 H RBC 3.66 L Hgb 10.0 L Hct 34.6 L MCHC 28.9 L RDW 23.3 H Neutrophils # (Manual) Lymphocytes # (Manual) 9.74 H Monocytes # (Manual) INR Potassium Carbon Dioxide BUN Glucose POC Glucose (mg/dL) 125 H Calcium Total Creatine Kinase Total Protein Albumin Urine Ketones Trace H Uric Acid Crystals Rare H Urine Mucus Rare H 02/04/17 02/04/17 09:13 11:27 WBC RBC Hgb Hct MCHC RDW Neutrophils # (Manual) Lymphocytes # (Manual) Monocytes # (Manual) INR Potassium Carbon Dioxide 34 H BUN 25 H Glucose 120 H POC Glucose (mg/dL) 122 H Calcium 8.3 L Total Creatine Kinase Total Protein 5.2 L Albumin 3.1 L Urine Ketones Uric Acid Crystals Urine Mucus - Diagnostic Findings Chest x-ray: image reviewed Assessment and Plan Plan: Assessment 1 acute COPD exacerbation with secondary shortness of breath. 2 low-grade fever, recovered and the patient is not showing any signs of septicemia for now 3 COPD per history with a baseline FEV1 of estimated to be at 50% of predicted maintained on Symbicort on outpatient basis 4 chronic leukocytic leukemia 5 paroxysmal A. fib fibrillation with rapid ventricular response and currently patient IV Cardizem for rate control 6 hypothyroidism 7 recent viral skin rash, possibly related to chickenpox nontender the skin lesion was positive for VZV by PCR. 8 Fletcher's palsy 9 difficulty with swallowing and the patient has enteral feeding for nutritional support Plan We'll put the patient on DuoNeb nebulized treatments on the clock. We'll stop the Symbicort it was this patient to Perforomist and Pulmicort neb last 2 minutes twice a day. We'll put the patient IV Solu-Medrol 60 mg every 6 hours. The patient will be covered empirically with IV Rocephin. Cardizem drip per cardiology. We'll discuss the case with infectious disease TO get further details on his previous sensitization [facility]. We'll continue to follow.
[2017-02-04 16:52] LABS: Glucose,Whole Blood 129 mg/dL (75-99)
[2017-02-04] MEDS: methylPREDNISolone SOD SUCCI 125 MG/2 ML VIAL IV SCH ×2 (18:14→23:51)
[2017-02-04] MEDS: BUDESONIDE 0.5 MG/2 ML NEBU INHALATION SCH (20:25)
[2017-02-04] MEDS: FORMOTEROL FUMARATE 20 MCG/2 ML NEBU INHALATION SCH (20:25)
[2017-02-04 20:54] LABS: Glucose,Whole Blood 160 mg/dL (75-99)
[2017-02-04] MEDS: LORazepam 2 MG/ML SYRINGE IV PRN (21:00)
[2017-02-04] MEDS: CIPROFLOXACIN 0.3% OPHTH SOLN 2.5 ML BTL LEFT EYE SCH ×2 (22:07→23:52)
--- NOTE | 2017-02-04 22:15 | CT ---
EXAM: CT Head Without Intravenous Contrast. CLINICAL HISTORY: Reason: mental status change TECHNIQUE: Axial computed tomography images of the head/brain without intravenous contrast. CTDI is 59.43 mGy and DLP is 1180 mGy-cm. This CT exam was performed using one or more of the following dose reduction techniques: automated exposure control, adjustment of the mA and/or kV according to patient size, and/or use of iterative reconstruction technique. COMPARISON: No relevant prior studies available. FINDINGS: Brain: Unremarkable. No hemorrhage. No significant white matter disease. No edema. Ventricles: Unremarkable. No ventriculomegaly. Bones: No acute fracture. Sinuses: Moderate mucoperiosteal thickening involving the bilateral frontal, bilateral ethmoid, sphenoid, and left maxillary sinuses. Mastoid air cells: Unremarkable as visualized. No mastoid effusion. IMPRESSION: 1. No acute intracranial abnormality. 2. Significant pansinusitis, probably chronic.
[2017-02-05] MEDS: LORazepam 2 MG/ML SYRINGE IV PRN ×2 (01:32→21:00)
[2017-02-05 02:43] LABS: Glucose,Whole Blood 198 mg/dL (75-99)
[2017-02-05] MEDS: CIPROFLOXACIN 0.3% OPHTH SOLN 2.5 ML BTL LEFT EYE SCH ×6 (04:03→23:12)
[2017-02-05 05:57] LABS: Glucose,Whole Blood 190 mg/dL (75-99)
[2017-02-05] MEDS: LEVOTHYROXINE 125 MCG TAB PO SCH (06:23)
[2017-02-05] MEDS: methylPREDNISolone SOD SUCCI 125 MG/2 ML VIAL IV SCH ×4 (06:24→23:12)
[2017-02-05] MEDS: SODIUM CHLORIDE 0.9% 1,000 ML IV SCH ×2 (06:48→17:32)
[2017-02-05] MEDS: BUDESONIDE 0.5 MG/2 ML NEBU INHALATION SCH ×2 (08:29→19:38)
[2017-02-05] MEDS: IPRATROPIUM-ALBUTEROL 3 ML NEB INHALATION SCH ×4 (08:29→19:38)
[2017-02-05] MEDS: FORMOTEROL FUMARATE 20 MCG/2 ML NEBU INHALATION SCH ×2 (08:29→19:38)
--- NOTE | 2017-02-05 11:10 | MR ---
EXAMINATION TYPE: MR brain wo/w con DATE OF EXAM: 02/05/2017 COMPARISON: NONE HISTORY: Acute mental status changes CONTRAST: Performed utilizing 8.5 mL intravenous Gadavist gadolinium contrast. TECHNIQUE: Multiplanar, multiecho imaging on a 3.0 Brook magnet is performed through the brain. Stud y is performed within 24 hours of arrival to the hospital. The craniovertebral junction is normal. The pituitary is normal. Diffusion-weighted imaging is performed. No abnormal hyperintensity is present to suggest an acute i ntracranial infarct or acute ischemic change. There are scattered punctate areas of hyperintensity on T2 and Inversion Recovery weighted sequences which are non-specific but can be related to microvascular ischemic changes. Ventricles and sulci are appropriate for the patient age. No abnormal enhancement is evident. Mucosal thickening is within the bilateral maxillary sinuses. There appears to be opacification left maxillary sinus. Because thickening is through ethmoid air cells. Some mucosal thickening is also wit hin the sphenoid sinuses. There may be an air-fluid level within the left frontal sinus. Remaining pa ranasal sinuses and mucosal thickening or opacification. Note is made of bilateral fluid within the m astoid air cells. IMPRESSIONS: 1. No acute intracranial process. 2. Clinical correlation recommended for pansinusitis. 3. Bilateral mastoiditis
[2017-02-05] MEDS ORDERED: RX INFO: IV CONTRAST WAS GIVEN 1 EACH MISC MISCELLANE PRN (11:44)
[2017-02-05] MEDS: MULTIVITAMINS, THERA 1 EACH TAB PO SCH (11:53)
[2017-02-05] MEDS: DILTIAZEM ORAL 30 MG TAB PO SCH ×3 (11:54→20:55)
[2017-02-05 11:58] LABS: Glucose,Whole Blood 158 mg/dL (75-99)
--- NOTE | 2017-02-05 12:43 | P.PN ---
Subjective Principal diagnosis: Patient sitting up in chair at bedside. present at visit requesting ENT for the dysphagia Objective - Vital Signs Vital signs: Vital Signs Temp 98.1 F 02/05/17 08:00 Pulse 96 02/05/17 09:03 Resp 28 H 02/05/17 03:47 BP 137/65 02/05/17 08:00 Pulse Ox 91 L 02/05/17 08:00 Intake & Output 02/04/17 02/05/17 02/05/17 18:59 06:59 18:59 Intake Total 960 Output Total 175 350 Balance -175 610 Weight 79 kg 84.5 kg Intake: IV 960 Sodium Chloride 0.9% 1, 960 000 ml @ 80 mls/hr IV . [id number] Rx#:[id number] Output: Urine 175 350 Other: Voiding Method Urinal - Constitutional General appearance: Present: mild distress - EENT EENT Comment(s): Left eye droopy from Fletcher's palsy Eyes: Present: PERRLA ENT: Present: hard of hearing - Neck Neck: Present: normal ROM - Respiratory Respiratory: left: wheezing, bilateral: diminished - Cardiovascular Rhythm: regular - Gastrointestinal Gastrointestinal Comment(s): Gastric tube present General gastrointestinal: Present: soft - Integumentary Integumentary: Present: normal - Neurologic Neurologic Comment(s): Left-sided facial droop secondary Fletcher's palsy - Musculoskeletal Musculoskeletal: Present: generalized weakness - Psychiatric Psychiatric: Present: A&O x's 3, appropriate affect, intact judgment & insight - Labs CBC & Chem 7: 02/04/17 09:13 02/04/17 09:13 Labs: Abnormal Lab Results - Last 24 Hours (Table) 02/04/17 02/04/17 02/04/17 Range/Units 11:27 16:50 20:52 POC Glucose (mg/dL) 122 H 129 H 160 H (75-99) mg/dL 02/05/17 02/05/17 02/05/17 Range/Units 02:41 05:55 11:54 POC Glucose (mg/dL) 198 H 190 H 158 H (75-99) mg/dL Microbiology - Last 24 Hours (Table) 02/04/17 04:20 Urine Culture - Final Urine,Clean Catch 02/03/17 11:26 Blood Culture - Preliminary Blood No Growth after 24 hours - Imaging and Cardiology Chest x-ray: report reviewed CT Scan - head: report reviewed Assessment and Plan Plan: Assessment Pneumonia Atrial flutter Acute on chronic COPD Hypothyroidism Chronic lymphocytic leukemia Gastric feeding tube place records at [facility] oncologist phone number [phone] Fletcher's palsy Herpes zoster Altered mental status secondary to hypotensive event remote Sinusitis Plan Continue consultation with pulmonology cardiology and oncology Neurology has been requested ENT requested for sinusitis possible mastoiditis and dysphagia
--- NOTE | 2017-02-05 13:28 | CT ---
EXAMINATION TYPE: CT chest angio for PE DATE OF EXAM: 02/05/2017 COMPARISON: NONE HISTORY: Shortness of breath. CT DLP: 606 mGycm Automated exposure control for dose reduction was used. CONTRAST: CT Chest for pulmonary embolism performed with with IV Contrast, patient injected with 100 mL of Omni paque 350. FINDINGS: There is a 4.46 mm calcified granuloma in the right upper lobe. No other nodules are seen. There is no infiltrate. There is no significant axillary adenopathy. There is some shotty mediastinal adenopathy. There is mi nimal right hilar adenopathy. There is no evidence of pulmonary embolus. The aorta is normal in caliber without evidence of dissect ion. The heart is upper limits of normal in size. There is 5.5 mm a pericardial fluid or thickening. There is no pleural fluid identified. There is a gastrostomy tube in place. I suspect some sludge within the gallbladder. There is minimal hypertrophic spondylosis within the dorsal spine. IMPRESSION: 1. THIS EXAMINATION IS NEGATIVE FOR PULMONARY EMBOLUS. 2. EVIDENCE OF OLD GRANULOMATOUS DISEASE. 3. SMALL AMOUNT OF PERICARDIAL THICKENING OR FLUID. 4. I SUSPECT SLUDGE WITHIN THE GALLBLADDER. THE GALLBLADDER ULTRASOUND WOULD BE SUGGESTED.
--- NOTE | 2017-02-05 13:37 | P.PN ---
Subjective sent illness: 76-year-old male patient presented to the emergency department with increased shortness of breath, cough, chest tightness and wheezing. The patient was treated recently at [facility] for pneumonia. He was also given diagnosis of Fletcher's palsy. He was also found to have difficulty in swallowing and he was given a PEG tube for enteral feeding and nutritional support. His chest x-rays have any acute pulmonary infiltrates. The patient is bronchospastic and wheezy and he was started on a combination of bronchodilators and systemic steroids will be also added. No significant sputum production. No clear-cut history of aspiration of food material. This patient is known to have COPD. He is also known to have chronic lymphocytic leukemia who has been followed up by Dr Bradshaw on an outpatient basis. The patient lives in [place] and he goes to [place] . The patient's CLL has been essentially stable. The patient did not have any indication for therapy and his been monitored clinically. He also has COPD. He has been seen by a boarding room fixer in [place], and he has undergone a pulmonary function test and he was told that his lung capacities in order of 50% . I'm assuming his FEV1 is in the range of 50%. The patient was given Symbicort 160/4.5, 2 puffs twice daily regarding maintenance therapy for COPD. Denies having any recurrent exacerbations. Denies having any major pulmonary complications from the COPD. Patient was admitted To [facility] back in December 2016. At that time he was having difficulties with swallowing and soreness in his throat and tongue and change in his voice along with some difficulties in swallowing and speech. He was also having persistent fever and he developed a body rash which probably at a later stage attributed to be related to a viral infection/questionable chickenpox an immune compromised patient knowing that the skin lesion that was taken do not to be positive for VZV virus. The patient also has chronic atrial fibrillation and he was treated in the past for A. fib/RVR. He is having the same issue for now is currently on Cardizem drip at 5 mg an hour. Echocardiogram showed mild concentric hypertrophy. He has an ejection fraction of 55%. Mild MR and mild TR. No vegetations. On I'm seeing this patient in follow-up. I was able to meet and get more information from his . As mentioned, the patient has complication of chronic lymphocytic leukemia. 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 The patient was infected with varicella virus, possibly a chickenpox event, presenting with diffuse rash and subsequently the patient developed a Fletcher's palsy which resulted in significant positive left face, hearing deficits in addition. The patient also had difficulty in swallowing. Further ENT evaluation that was done at [facility] revealed that the patient had recurrent or extension of his CLL into his posterior oropharyngeal area which was affecting his swallow. Based on that the patient was given a PEG tube. He was treated for pneumonia. Subsequently was given systemic chemotherapy. I saw this patient yesterday in consultation and he was an acute COPD exacerbation. I gave him bronchodilators and systemic steroids. Today's more hypoxic and was placed on high flow oxygen at 4 L/m nasal cannula. A CT angios the chest needs to follow up to rule out any pneumonia/pulmonary embolism /any other abnormalities contributing to his hypoxemia and shortness of breath. MRI of the brain was done that showed no acute abnormalities and there is evidence of pansinusitis. The patient is currently on IV Rocephin 1 g every 24 hours and Zithromax oral. In terms of his atrial fibrillation, the patient is under better control and currently is on oral Cardizem 30 mg by mouth 3 times a day. He is on no anticoagulants for now. Objective - Vital Signs Vital signs: Vital Signs Temp 98.1 F 02/05/17 08:00 Pulse 104 H 02/05/17 13:25 Resp 28 H 02/05/17 03:47 BP 137/65 02/05/17 08:00 Pulse Ox 91 L 02/05/17 08:00 Intake & Output 02/04/17 02/05/17 02/05/17 18:59 06:59 18:59 Intake Total 960 Output Total 175 350 400 Balance -175 610 -400 Weight 79 kg 84.5 kg Intake: IV 960 Sodium Chloride 0.9% 1, 960 000 ml @ 80 mls/hr IV . [id number] [facility] Rx#:[id number] Output: Urine 175 350 400 Other: Voiding Method Urinal - Exam The patient is a mild degree of Restoril distress even at rest. He is not using excessive muscle breathing. There is atraumatic normocephalic and the patient has a facial asymmetry with left-sided weakness related to Fletcher's palsy. There is increased salivation lacrimation so the left eye. Neck is supple and there is no JVDs no goiter or neck masses. Lungs sounds are diminished and there is diffuse expiratory wheezes total lung his bilaterally and there is prolongation of expiratory phase of breathing. Heart sounds are irregular, possible sinus stool, no cervical murmurs appreciated.Abdominal exam revealed normal bowel sounds. The abdomen was soft, non-tender, and without masses, organomegaly, or appreciable enlargement of the abdominal aorta.Examination of the extremities revealed easily palpable radial, femoral and pedal pulses. There was no cyanosis, clubbing or edema. - Labs CBC & Chem 7: 02/04/17 09:13 02/04/17 09:13 Labs: Abnormal Lab Results - Last 24 Hours (Table) 02/04/17 02/04/17 02/04/17 Range/Units 11:27 16:50 20:52 POC Glucose (mg/dL) 122 H 129 H 160 H (75-99) mg/dL 02/05/17 02/05/17 02/05/17 Range/Units 02:41 05:55 11:54 POC Glucose (mg/dL) 198 H 190 H 158 H (75-99) mg/dL Microbiology - Last 24 Hours (Table) 02/05/17 00:45 Gram Stain - Preliminary Sputum 02/04/17 04:20 Urine Culture - Final Urine,Clean Catch 02/03/17 11:26 Blood Culture - Preliminary Blood No Growth after 24 hours Assessment and Plan Plan: Assessment 1 acute COPD exacerbation with secondary shortness of breath. 2 acute hypoxic respiratory failure currently on high flow oxygen at [address] angios the chest is to follow. 3 COPD per history with a baseline FEV1 of estimated to be at 50% of predicted maintained on Symbicort on outpatient basis 4 chronic leukocytic leukemia, with secondary hypogammaglobulinemia. 5 paroxysmal A. fib fibrillation with rapid ventricular response and currently patient IV Cardizem for rate control 6 hypothyroidism 7 recent viral skin rash, possibly related to chickenpox nontender the skin lesion was positive for VZV by PCR. 8 Fletcher's palsy 9 difficulty with swallowing secondary to CLL involving the posterior oropharynx and the laryngeal odell based on an ENT evaluation was done [facility]. The patient currently is receiving enteral feeding for nutritional support Plan Add oral Zithromax. Continue IV Rocephin. Continue high flow oxygen. Continued IV Solu-Medrol. Proceed with a CT angios the chest to rule out pulmonary embolism. Continue enteral feeding for nutritional support. We'll continue to follow.
[2017-02-05 16:38] LABS: Glucose,Whole Blood 156 mg/dL (75-99)
[2017-02-05] MEDS: AZITHROMYCIN 500 MG TAB PO SCH (17:33)
--- NOTE | 2017-02-05 19:32 | P.CNNES ---
History of Present Illness Consult date: 02/05/17 Requesting physician: Brian Barrientos Reason for Consult: AMS Chief complaint: AMS History of Present Illness: The patient is a pleasant 76-year-old female who is being evaluated by the neurology service per the request of Dr. Barrientos for altered mental status. The patient was brought into [facility] emergency room 2 days ago with the complaints of shortness of breath. He does have history of chronic obstructive pulmonary disease and he was being worked up for possible pneumonia. 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 He had to undergo a PEG tube placement recently. 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 Yesterday, the patient was found to be more confused and a neurology consultation was obtained. In reviewing his vital signs, the patient had been having hypoxic events with pulse ox into the 80s. The patient was placed on BiPAP and his mental status has significantly improved. At the time of my evaluation, his pulse ox has been maintaining in the 90s. He denies any lateralizing weakness in the extremities or numbness and denies any headache. I did review his computed tomography scan of the brain which showed evidence of pansinusitis. No intracranial abnormalities were seen. His MRI of the brain showed similar findings and also showed evidence of mastoiditis. No intracranial abnormalities were seen. His laboratory workup was reviewed. Review of Systems All systems: negative Constitutional: Denies chills, Denies fever Eyes: left dry eye, left irritation, left itching, denies blurred vision, denies pain Ears: bilateral: decreased hearing Ears, nose, mouth and throat: Reports dysphagia, Denies headache, Denies sore throat Cardiovascular: Denies chest pain, Denies shortness of breath Respiratory: Denies cough Gastrointestinal: Denies abdominal pain, Denies diarrhea, Denies nausea, Denies vomiting Musculoskeletal: Denies myalgias Integumentary: Reports rash, Denies pruritus Neurological: Reports as per HPI, Reports hearing difficulties, Denies numbness , Denies weakness Psychiatric: Denies anxiety, Denies depression Endocrine: Denies fatigue, Denies weight change Hematologic/Lymphatic: Reports as per HPI Past Medical History Past Medical History: Cancer, Pneumonia, Prostate Disorder, Thyroid Disorder Additional Past Medical History / Comment(s): Chronic lymphocytic leukemia, COPD /chronic bronchitis, paroxysmal atrial fibrillation, hypothyroidism, viral skin rash- chickenpox rash, Fletcher's palsy, History of Any Multi-Drug Resistant Organisms: None Reported Additional Past Surgical History / Comment(s): THYROID SURGERY Past Anesthesia/Blood Transfusion Reactions: Blood Transfusion Reaction Additional Past Anesthesia/Blood Transfusion Reaction / Comment(s): GAVE BENADRYL AND RAN SLOW. Has had multiple transfusuions and has a reaction every time Past Psychological History: No Psychological Hx Reported Smoking Status: Former smoker Additional Past Alcohol Use History / Comment(s): Patient was only a smoker for 5-6 years in the 1960s. No marijuana or street drug use. He and his winter in [place] and return to [place] for the oates. They have a Jaurequi terrier without any other animal exposures he currently lives on the [address]. Patient does normal yardwork but no extensive gardening or other hobbies. - Past Family History Father Family Medical History: Dementia Mother Family Medical History: No Reported History Medications and Allergies Home Medications Medication Instructions Recorded Confirmed Type Budesonide/Formoterol Fumarate 2 puff INHALATION RT-BID 12/21/16 02/03/17 History [Symbicort 160-4.5 Mcg Inhaler] Levothyroxine Sodium [Synthroid] 125 mcg PO DAILY 12/21/16 02/03/17 History Multivitamins, Thera [Multivitamin 1 tab PO DAILY 12/21/16 02/03/17 History (formulary)] Allergies Allergy/AdvReac Type Severity Reaction Status Date / Time amoxicillin Allergy Rash/Hives Verified 02/03/17 12:22 clavulanic acid Allergy Rash/Hives Verified 02/03/17 19:57 [From Augmentin] rituximab [From Rituxan] Allergy Anaphylaxis Verified 02/03/17 19:57 Physical Examination - Vital Signs Vital Signs: Vital Signs Temp Pulse Pulse Pulse Resp BP Pulse Ox 02/05/17 16:09 105 H 02/05/17 16:00 102 H 132/61 93 L 02/05/17 15:49 100 02/05/17 13:25 104 H 02/05/17 13:11 104 H 02/05/17 12:00 101 H 101 H 135/65 92 L 02/05/17 09:03 96 02/05/17 08:51 100 02/05/17 08:50 100 02/05/17 08:32 112 H 02/05/17 08:00 98.1 F 111 H 137/65 91 L 02/05/17 05:30 93 L 02/05/17 03:47 98 F 104 H 109 H 28 H 133/68 92 L 02/05/17 02:58 92 L 02/05/17 00:58 92 L 02/05/17 00:50 92 L 02/05/17 00:00 98.7 F 103 H 94 28 H 129/58 89 L 02/04/17 20:47 120 H 02/04/17 20:38 116 H 02/04/17 20:26 118 H 02/04/17 20:00 98.7 F 107 H 117 H 28 H 142/71 91 L Intake and Output 02/05/17 02/05/17 02/05/17 06:59 14:59 22:59 Intake Total 960 Output Total 350 400 Balance 610 -400 Intake: IV 960 Sodium Chloride 0.9% 1, 960 000 ml @ 80 mls/hr IV . [id number] [facility] Rx#:[id number] Output: Urine 350 400 Other: Weight 84.5 kg - Constitutional General appearance: average body habitus, no acute distress - EENT EENT: ATNC, hearing diminished - Cardiovascular Cardiovascular: regular rate Extremities: no peripheral edema bilaterally - Gastrointestinal PEG tube is present Gastrointestinal: soft, non-distended - Neurologic The patient is awake and oriented 3. Speech is soft. Language testing is intact. Cranial nerve testing showed significant left facial weakness involving the upper and lower face. Significant hearing loss is present. No lateralizing weakness is seen in the extremities. Sensory exam was normal to light touch in all 4 extremities. No tremors or seizure-like activity is seen. - Psychiatric Affect is flat Psychiatric: cooperative Results - Laboratory Findings CBC and BMP: 02/04/17 09:13 02/04/17 09:13 Abnormal Lab Findings: Abnormal Labs 02/03/17 02/03/17 02/03/17 11:26 11:26 11:26 WBC 28.4 H* RBC 3.97 L Hgb 11.1 L Hct 36.4 L MCHC 30.4 L RDW 23.4 H Neutrophils # (Manual) 11.30 H Lymphocytes # (Manual) 14.77 H Monocytes # (Manual) 1.99 H INR Potassium 5.5 H Carbon Dioxide BUN 28 H Glucose 115 H POC Glucose (mg/dL) Calcium Total Creatine Kinase <20 L Total Protein 5.9 L Albumin Urine Ketones Uric Acid Crystals Urine Mucus 02/03/17 02/03/17 02/03/17 11:26 18:11 20:59 WBC RBC Hgb Hct MCHC RDW Neutrophils # (Manual) Lymphocytes # (Manual) Monocytes # (Manual) INR 1.2 H Potassium Carbon Dioxide BUN Glucose POC Glucose (mg/dL) 104 H 105 H Calcium Total Creatine Kinase Total Protein Albumin Urine Ketones Uric Acid Crystals Urine Mucus 02/04/17 02/04/17 02/04/17 04:20 05:33 09:13 WBC 17.4 H RBC 3.66 L Hgb 10.0 L Hct 34.6 L MCHC 28.9 L RDW 23.3 H Neutrophils # (Manual) Lymphocytes # (Manual) 9.74 H Monocytes # (Manual) INR Potassium Carbon Dioxide BUN Glucose POC Glucose (mg/dL) 125 H Calcium Total Creatine Kinase Total Protein Albumin Urine Ketones Trace H Uric Acid Crystals Rare H Urine Mucus Rare H 02/04/17 02/04/17 02/04/17 09:13 11:27 16:50 WBC RBC Hgb Hct MCHC RDW Neutrophils # (Manual) Lymphocytes # (Manual) Monocytes # (Manual) INR Potassium Carbon Dioxide 34 H BUN 25 H Glucose 120 H POC Glucose (mg/dL) 122 H 129 H Calcium 8.3 L Total Creatine Kinase Total Protein 5.2 L Albumin 3.1 L Urine Ketones Uric Acid Crystals Urine Mucus 02/04/17 02/05/17 02/05/17 20:52 02:41 05:55 WBC RBC Hgb Hct MCHC RDW Neutrophils # (Manual) Lymphocytes # (Manual) Monocytes # (Manual) INR Potassium Carbon Dioxide BUN Glucose POC Glucose (mg/dL) 160 H 198 H 190 H Calcium Total Creatine Kinase Total Protein Albumin Urine Ketones Uric Acid Crystals Urine Mucus 02/05/17 02/05/17 11:54 16:36 WBC RBC Hgb Hct MCHC RDW Neutrophils # (Manual) Lymphocytes # (Manual) Monocytes # (Manual) INR Potassium Carbon Dioxide BUN Glucose POC Glucose (mg/dL) 158 H 156 H Calcium Total Creatine Kinase Total Protein Albumin Urine Ketones Uric Acid Crystals Urine Mucus Assessment and Plan (1) Altered mental status Status: Chronic (2) Hypoxia Status: Chronic (3) COPD (chronic obstructive pulmonary disease) Status: Chronic (4) CLL (chronic lymphocytic leukemia) Status: Chronic Plan: The patient's altered mental status appears to have resolved. I do believe this was mainly due to hypoxic encephalopathy due to the decreased oxygen saturation yesterday. He is doing much better on BiPAP. I did review his computed tomography scan of the brain which showed no intracranial abnormalities. Similar findings were seen in the MRI of the brain. Both studies showed evidence of pansinusitis. The patient is already on antibiotic therapy. No further neurological workup is needed at this time. I will continue to follow with you as needed. Time with Patient: Greater than 30
[2017-02-05 20:51] LABS: Glucose,Whole Blood 186 mg/dL (75-99)
--- NOTE | 2017-02-05 22:59 | P.CONS ---
History of Present Illness - Reason for Consult Consult date: 02/04/17 CLL - History of Present Illness The patient is a 76-year-old gentleman, well known to our service. He has a known history of CLL, diagnosed some years ago, which appears to be stage 0. He has been followed by the same by Dr. Rucker with no indication for treatment so far. Most recent office visit was in 10/22. The patient was admitted to the hospital in 12/22, with the weakness, as well as skin rash due to shingles. He was subsequently admitted to [facility] with difficulty in swallowing and Fletcher's palsy. He had a PEG tube put in few days ago and started on tube feeds and then discharged. During his prior admission he had had a history of atrial fibrillation, with rapid ventricular response intermittently. He came into the emergency room, as over the last day or so he was feeling increasingly short of breath , even at rest. He was found to be in A. fib with RVR. He was therefore admitted for further management. On admission total white count was 28.4. Consult was placed for further evaluation and recommendations. Review of Systems Constitutional: Reports fatigue, Reports weakness Eyes: denies blurred vision, denies pain Ears: deny: decreased hearing, ear discharge, earache, tinnitus Ears, nose, mouth and throat: Denies headache, Denies sore throat Cardiovascular: Reports lightheadedness, Reports palpitations, Reports shortness of breath Respiratory: Reports dyspnea Gastrointestinal: Denies abdominal pain, Denies diarrhea, Denies nausea, Denies vomiting Genitourinary: Reports as per HPI (No specific complaints) Musculoskeletal: Reports muscle weakness Integumentary: Reports as per HPI (Recent left-sided facial shingles, which led to his Fletcher's palsy) Neurological: Reports as per HPI (Left-sided Fletcher's palsy. Dysphagia) Hematologic/Lymphatic: Reports as per HPI Past Medical History Past Medical History: Cancer, Pneumonia, Prostate Disorder, Thyroid Disorder Additional Past Medical History / Comment(s): Chronic lymphocytic leukemia, COPD /chronic bronchitis, paroxysmal atrial fibrillation, hypothyroidism, viral skin rash- chickenpox rash, Fletcher's palsy, History of Any Multi-Drug Resistant Organisms: None Reported Additional Past Surgical History / Comment(s): THYROID SURGERY Past Anesthesia/Blood Transfusion Reactions: Blood Transfusion Reaction Additional Past Anesthesia/Blood Transfusion Reaction / Comm: LEONIE GALLOWAYRYL AND RAN SLOW. Has had multiple transfusuions and has a reaction every time Past Psychological History: No Psychological Hx Reported Smoking Status: Former smoker Additional Past Alcohol Use History / Comment(s): Patient was only a smoker for 5-6 years in the 1960s. No marijuana or street drug use. He and his winter in [place] and return to [place] for the oates. They have a Jaurequi terrier without any other animal exposures [place]. Patient does normal yardwork but no extensive gardening or other hobbies. - Past Family History Father Family Medical History: Dementia Mother Family Medical History: No Reported History Medications and Allergies Home Medications Medication Instructions Recorded Confirmed Type Budesonide/Formoterol Fumarate 2 puff INHALATION RT-BID 12/21/16 02/03/17 History [Symbicort 160-4.5 Mcg Inhaler] Levothyroxine Sodium [Synthroid] 125 mcg PO DAILY 12/21/16 02/03/17 History Multivitamins, Thera [Multivitamin 1 tab PO DAILY 12/21/16 02/03/17 History (formulary)] Allergies Allergy/AdvReac Type Severity Reaction Status Date / Time amoxicillin Allergy Rash/Hives Verified 02/03/17 12:22 clavulanic acid Allergy Rash/Hives Verified 02/03/17 19:57 [From Augmentin] rituximab [From Rituxan] Allergy Anaphylaxis Verified 02/03/17 19:57 Physical Exam Vitals: Vital Signs Temp Pulse Pulse Pulse Resp BP Pulse Ox 02/05/17 00:00 98.7 F 103 H 94 28 H 129/58 89 L 02/04/17 20:47 120 H 02/04/17 20:38 116 H 02/04/17 20:26 118 H 02/04/17 20:00 98.7 F 107 H 117 H 28 H 142/71 91 L 02/04/17 16:22 120 H 02/04/17 16:09 120 H 02/04/17 16:00 99.0 F 103 H 102 H 20 141/72 97 02/04/17 13:50 124 H 02/04/17 13:34 116 H 02/04/17 11:20 99.3 F 108 H 26 H 145/69 93 L 02/04/17 08:10 99.0 F 95 24 148/70 94 L 02/04/17 04:00 98.2 F 103 H 104 H 36 H 140/71 94 L Intake and Output 02/04/17 02/04/17 02/05/17 14:59 22:59 06:59 Output Total 100 75 Balance -100 -75 Output: Urine 100 75 Other: Voiding Method Urinal Urinal Weight 79 kg Patient Weight 02/05/17 06:59 Weight 79 kg - Constitutional General appearance: mild distress - EENT Eyes: EOMI, PERRLA ENT: hearing grossly normal, normal oropharynx - Neck Neck: no lymphadenopathy Thyroid: bilateral: normal size - Respiratory Respiratory: bilateral: CTA - Cardiovascular Rhythm: regular Heart sounds: normal: S1, S2 - Gastrointestinal General gastrointestinal: normal bowel sounds, soft - Integumentary Integumentary: normal - Neurologic Neurologic: focal deficits (Left Fletcher's palsy) - Musculoskeletal Musculoskeletal: generalized weakness - Psychiatric Psychiatric: A&O x's 3, appropriate affect Results CBC & Chem 7: 02/04/17 09:13 02/04/17 09:13 Labs: Abnormal Lab Results - Last 24 Hours (Table) 02/04/17 02/04/17 02/04/17 Range/Units 04:20 05:33 09:13 WBC 17.4 H (3.8-10.6) k/uL RBC 3.66 L (4.30-5.90) m/uL Hgb 10.0 L (13.0-17.5) gm/dL Hct 34.6 L (39.0-53.0) % MCHC 28.9 L (31.0-37.0) g/dL RDW 23.3 H (11.5-15.5) % Lymphocytes # (Manual) 9.74 H (1.0-4.8) k/uL Carbon Dioxide (22-30) mmol/L BUN (9-20) mg/dL Glucose (74-99) mg/dL POC Glucose (mg/dL) 125 H (75-99) mg/dL Calcium (8.4-10.2) mg/dL Total Protein (6.3-8.2) g/dL Albumin (3.5-5.0) g/dL Urine Ketones Trace H (Negative) Uric Acid Crystals Rare H (None) /hpf Urine Mucus Rare H (None) /hpf 02/04/17 02/04/17 02/04/17 Range/Units 09:13 11:27 16:50 WBC (3.8-10.6) k/uL RBC (4.30-5.90) m/uL Hgb (13.0-17.5) gm/dL Hct (39.0-53.0) % MCHC (31.0-37.0) g/dL RDW (11.5-15.5) % Lymphocytes # (Manual) (1.0-4.8) k/uL Carbon Dioxide 34 H (22-30) mmol/L BUN 25 H (9-20) mg/dL Glucose 120 H (74-99) mg/dL POC Glucose (mg/dL) 122 H 129 H (75-99) mg/dL Calcium 8.3 L (8.4-10.2) mg/dL Total Protein 5.2 L (6.3-8.2) g/dL Albumin 3.1 L (3.5-5.0) g/dL Urine Ketones (Negative) Uric Acid Crystals (None) /hpf Urine Mucus (None) /hpf 02/04/17 Range/Units 20:52 WBC (3.8-10.6) k/uL RBC (4.30-5.90) m/uL Hgb (13.0-17.5) gm/dL Hct (39.0-53.0) % MCHC (31.0-37.0) g/dL RDW (11.5-15.5) % Lymphocytes # (Manual) (1.0-4.8) k/uL Carbon Dioxide (22-30) mmol/L BUN (9-20) mg/dL Glucose (74-99) mg/dL POC Glucose (mg/dL) 160 H (75-99) mg/dL Calcium (8.4-10.2) mg/dL Total Protein (6.3-8.2) g/dL Albumin (3.5-5.0) g/dL Urine Ketones (Negative) Uric Acid Crystals (None) /hpf Urine Mucus (None) /hpf Microbiology - Last 24 Hours (Table) 02/03/17 11:26 Blood Culture - Preliminary Blood No Growth after 24 hours 02/04/17 04:20 Urine Culture - Preliminary Urine,Clean Catch Chest x-ray: report reviewed Assessment and Plan (1) Atrial flutter with rapid ventricular response Narrative/Plan: This is a comparatively new onset, and was the major present complaint. However the patient has now reverted back to normal rhythm. Defer to cardiology for continued management. If anticoagulation is felt to be required , there is no cord indication from the hematology standpoint, as his platelet counts are quite adequate for the same Status: Acute (2) Acute and chronic respiratory failure Narrative/Plan: The patient has known COPD. During this admission, he was quite short of breath. As noted above he was in A. fib with RVR. There also appeared to be some wheezing. The patient has been seen by primary medicine, and is being treated for possible COPD exacerbation, in addition to his cardiac complaints. Clinically he feels somewhat improved. Status: Acute (3) CLL (chronic lymphocytic leukemia) Narrative/Plan: The patient has early-stage disease, and so far has not required treatment. WBC this admission is not markedly elevated. Neutrophils are quite adequate. Other blood counts are also within normal limits. There is no significant adenopathy noted. Therefore at this time there appears to be no evidence of progression, or reason to treat at this time. Continue to monitor. Status: Chronic
[2017-02-06] MEDS: CIPROFLOXACIN 0.3% OPHTH SOLN 2.5 ML BTL LEFT EYE SCH ×3 (03:38→12:52)
[2017-02-06] MEDS: SODIUM CHLORIDE 0.9% 1,000 ML IV SCH ×2 (06:06→08:37)
[2017-02-06 06:12] LABS: Glucose,Whole Blood 203 mg/dL (75-99)
[2017-02-06] MEDS: LEVOTHYROXINE 125 MCG TAB PO SCH (06:27)
[2017-02-06] MEDS: methylPREDNISolone SOD SUCCI 125 MG/2 ML VIAL IV SCH ×4 (06:27→23:18)
[2017-02-06] MEDS: BUDESONIDE 0.5 MG/2 ML NEBU INHALATION SCH ×2 (07:23→19:17)
[2017-02-06] MEDS: FORMOTEROL FUMARATE 20 MCG/2 ML NEBU INHALATION SCH ×2 (07:23→19:17)
[2017-02-06] MEDS: IPRATROPIUM-ALBUTEROL 3 ML NEB INHALATION SCH ×4 (07:23→19:17)
[2017-02-06] MEDS: DILTIAZEM ORAL 30 MG TAB PO SCH ×3 (08:38→21:09)
[2017-02-06] MEDS: AZITHROMYCIN 500 MG TAB PO SCH (08:38)
[2017-02-06] MEDS: INSULIN LISPRO (humaLOG) 300 UNIT/3 ML VIAL SQ SCH ×4 (08:39→21:09)
[2017-02-06] MEDS: MULTIVITAMINS, THERA 1 EACH TAB PO SCH (08:39)
--- NOTE | 2017-02-06 11:43 | CONS ---
CONSULTATION Date of Consultation: REASON FOR CONSULTATION: Sinusitis/dysphagia. HISTORY: This is a 76-year-old white male, who is known to me from previous office evaluation. He was in my office last in 2013 when he underwent septoplasty and endoscopic sinus surgery. He did well with this. He has done well with the sinuses since then overall. Approximately 2 months ago he developed multiple symptomatology including fever and weakness and ultimately was just diagnosed with leukemia. He subsequently was treated at [facility] including with 1 round of chemotherapy. He was noted at that point to have Fletcher's palsy on the left as well as dysphagia. The dysphagia was felt to be related to the leukemia and he ultimately underwent a feeding tube placement. He still has dysphagia. He was admitted with a cardiac arrhythmia and also has COPD and possibly pneumonia and currently is on Zithromax and Rocephin. He had some mental status changes over the last day and underwent a brain CT and MRI and was noted to have mucoperiosteal thickening in the sinuses with the CT scan showing no fluid in the mastoid, but the MRI did. He has had some decreased hearing. He has a persistent left facial weakness but no complaints with his eye as far as any soreness or irritation or visual changes. He has no facial pain or pressure, but does have some mild mucus drainage. He does note that his hearing has been diminished bilaterally for 2 or 3 weeks but has no otalgia. PAST MEDICAL HISTORY: As above as well as history of chronic bronchitis and COPD, and in addition history pneumonia, prostate disorder, thyroid disorder. PAST SURGICAL HISTORY: Thyroid surgery. ALLERGIES: AMOXICILLIN. MEDICATIONS: Medications at home: 1. Symbicort. 2. Synthroid. 3. Also recent chemotherapy. FAMILY HISTORY: Positive for dementia. SOCIAL HISTORY: Did smoke for a few years, but does not now. PHYSICAL EXAM: Well developed, elderly white male, in no acute distress. He has grossly subjective decreased hearing but does understand speech. His memory appears good. HEENT: Head is normocephalic, atraumatic, although he does have a diffuse house grade 4 left facial palsy. No eye erythema. The ear shows the canals to be clear. Tympanic membranes are dull with serous middle ear effusion bilaterally and decreased mobility on pneumatic otoscopy. No mastoid or tragal tenderness. Nose shows mild congestion. There is minimal clear mucous drainage bilaterally in nasal cavities. No purulence. Mouth and throat shows no abnormal masses or lesions. Hypopharynx and larynx limited evaluation due to strong gag reflux even with attempt flexible endoscopy but voicing is normal, no stridor and grossly appearing vocal cords and no airway obstruction. NECK: Supple without adenopathy. ASSESSMENT: 1. Acute on chronic sinusitis. 2. Acute nonsuppurative otitis media bilaterally. 3. Left-sided Fletcher's palsy. 4. CLL. 5. Pneumonia. PLANS: The patient is already on Zithromax and Rocephin which would be reasonable choices for this and also should cover sinus pathogens. Will need to potentially add moisturization for the decreased ability to close his eye along the left given the fact that it sounds as though this may have been shingles related therefore the zoster related facial palsy rather than idiopathic. Prognosis for improvement on the facial palsy is guarded although it has currently less than 2 months. The patient still needs further oncology evaluation and potentially more chemotherapy. Certainly it may well be immunocompromised. As far as the dysphagia, continue tube feedings at this point. Certainly could consider modified barium swallow with speech therapy to evaluate swallowing prior to instituting attempts at oral intake. Ultimately if the middle-ear effusions will not resolve then could certainly placed ventilation tubes but will try to avoid this at this point, if possible. He certainly can follow up in my office after discharge for re-evaluation of all these issues, but if there are questions or concerns in the meantime please feel free to contact me. JORGE / ROXANNA: [id number] /
[2017-02-06 12:23] LABS: Glucose,Whole Blood 152 mg/dL (75-99)
[2017-02-06] MEDS: GENTAMICIN 0.3% OPHTH OINT 3.5 GM TUBE LEFT EYE SCH ×2 (15:31→22:21)
[2017-02-06 16:35] LABS: Glucose,Whole Blood 163 mg/dL (75-99)
--- NOTE | 2017-02-06 18:23 | P.PN ---
Subjective sent illness: 76-year-old male patient presented to the emergency department with increased shortness of breath, cough, chest tightness and wheezing. The patient was treated recently at [facility] for pneumonia. He was also given diagnosis of Fletcher's palsy. He was also found to have difficulty in swallowing and he was given a PEG tube for enteral feeding and nutritional support. His chest x-rays have any acute pulmonary infiltrates. The patient is bronchospastic and wheezy and he was started on a combination of bronchodilators and systemic steroids will be also added. No significant sputum production. No clear-cut history of aspiration of food material. This patient is known to have COPD. He is also known to have chronic lymphocytic leukemia who has been followed up by Dr Bradshaw on an outpatient basis. The patient lives in [place] and he goes to [place] . The patient's CLL has been essentially stable. The patient did not have any indication for therapy and his been monitored clinically. He also has COPD. He has been seen by a supervisor coal handling in [place], and he has undergone a pulmonary function test and he was told that his lung capacities in order of 50% . I'm assuming his FEV1 is in the range of 50%. The patient was given Symbicort 160/4.5, 2 puffs twice daily regarding maintenance therapy for COPD. Denies having any recurrent exacerbations. Denies having any major pulmonary complications from the COPD. Patient was admitted To [facility] back in December 2016. At that time he was having difficulties with swallowing and soreness in his throat and tongue and change in his voice along with some difficulties in swallowing and speech. He was also having persistent fever and he developed a body rash which probably at a later stage attributed to be related to a viral infection/questionable chickenpox an immune compromised patient knowing that the skin lesion that was taken do not to be positive for VZV virus. The patient also has chronic atrial fibrillation and he was treated in the past for A. fib/RVR. He is having the same issue for now is currently on Cardizem drip at 5 mg an hour. Echocardiogram showed mild concentric hypertrophy. He has an ejection fraction of 55%. Mild MR and mild TR. No vegetations. On I'm seeing this patient in follow-up. I was able to meet and get more information from his . As mentioned, the patient has complication of chronic lymphocytic leukemia. 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 The patient was infected with varicella virus, possibly a chickenpox event, presenting with diffuse rash and subsequently the patient developed a Fletcher's palsy which resulted in significant positive left face, hearing deficits in addition. The patient also had difficulty in swallowing. Further ENT evaluation that was done at [facility] revealed that the patient had recurrent or extension of his CLL into his posterior oropharyngeal area which was affecting his swallow. Based on that the patient was given a PEG tube. He was treated for pneumonia. Subsequently was given systemic chemotherapy. I saw this patient yesterday in consultation and he was an acute COPD exacerbation. I gave him bronchodilators and systemic steroids. Today's more hypoxic and was placed on high flow oxygen at 4 L/m nasal cannula. A CT angios the chest needs to follow up to rule out any pneumonia/pulmonary embolism /any other abnormalities contributing to his hypoxemia and shortness of breath. MRI of the brain was done that showed no acute abnormalities and there is evidence of pansinusitis. The patient is currently on IV Rocephin 1 g every 24 hours and Zithromax oral. In terms of his atrial fibrillation, the patient is under better control and currently is on oral Cardizem 30 mg by mouth 3 times a day. He is on no anticoagulants for now. On 02/06/2017, I'm seeing this patient in follow-up. He is looking much better. Less short of breath. The high flow oxygen has been discontinued and the patient is currently on 4-6 L/m nasal cannula and his saturations around 96% . He is breathing much easier. No shortness of breath. Cough and congestion still present although less compared to yesterday. He underwent a CAT scan of the chest that shows COPD. No evidence of any pulmonary embolism. No evidence of an acute pneumonia atelectasis or effusions. Mediastinum was also clear. As such the patient is a improving. He is afebrile. His white cell count was gradually dropping is currently down to 17.4. He continues to receive enteral feeding for nutritional support. He is on Rocephin and Zithromax as empiric antibiotic coverage. He is on DuoNeb, Pulmicort Respules, Perforomist neb last treatment and IV Solu-Medrol. Objective - Vital Signs Vital signs: Vital Signs Temp 97.4 F L 02/06/17 15:43 Pulse 96 02/06/17 15:57 Resp 18 02/06/17 15:43 BP 121/58 02/06/17 15:43 Pulse Ox 91 L 02/06/17 15:43 Intake & Output 02/05/17 02/06/17 02/06/17 18:59 06:59 18:59 Intake Total 720 Output Total 400 720 Balance -400 0 Weight 86.1 kg 86.1 kg Intake: IV 720 Sodium Chloride 0.9% 1, 720 000 ml @ 80 mls/hr IV . [id number] [facility] Rx#:[id number] Output: Urine 400 720 Other: Voiding Method Urinal # Voids 1 - Exam The patient is a mild degree of Restoril distress even at rest. He is not using excessive muscle breathing. There is atraumatic normocephalic and the patient has a facial asymmetry with left-sided weakness related to Fletcher's palsy. There is increased salivation lacrimation so the left eye. Neck is supple and there is no JVDs no goiter or neck masses. Lungs sounds are diminished and there is diffuse expiratory wheezes total lung his bilaterally and there is prolongation of expiratory phase of breathing. Heart sounds are irregular, possible sinus stool, no cervical murmurs appreciated.Abdominal exam revealed normal bowel sounds. The abdomen was soft, non-tender, and without masses, organomegaly, or appreciable enlargement of the abdominal aorta.Examination of the extremities revealed easily palpable radial, femoral and pedal pulses. There was no cyanosis, clubbing or edema. - Labs CBC & Chem 7: 02/04/17 09:13 02/04/17 09:13 Labs: Abnormal Lab Results - Last 24 Hours (Table) 02/05/17 02/06/17 02/06/17 Range/Units 20:49 06:10 12:21 POC Glucose (mg/dL) 186 H 203 H 152 H (75-99) mg/dL 02/06/17 Range/Units 16:33 POC Glucose (mg/dL) 163 H (75-99) mg/dL Microbiology - Last 24 Hours (Table) 02/05/17 00:45 Gram Stain - Preliminary Sputum Sputum Culture - Preliminary Gram Neg Bacilli 02/03/17 11:26 Blood Culture - Preliminary Blood No Growth after 72 hours Assessment and Plan Plan: Assessment 1 acute COPD exacerbation with secondary shortness of breath, improving and the CAT scan of the chest is been negative. 2 acute hypoxic respiratory failure, improving 3 COPD per history with a baseline FEV1 of estimated to be at 50% of predicted maintained on Symbicort on outpatient basis 4 chronic leukocytic leukemia, with secondary hypogammaglobulinemia. 5 paroxysmal A. fib fibrillation with rapid ventricular response and currently patient IV Cardizem for rate control 6 hypothyroidism 7 recent viral skin rash, possibly related to chickenpox nontender the skin lesion was positive for VZV by PCR. 8 Fletcher's palsy 9 difficulty with swallowing secondary to CLL involving the posterior oropharynx and the laryngeal odell based on an ENT evaluation was done [facility]. The patient currently is receiving enteral feeding for nutritional support Plan Patient is doing much better. We'll weaning down the FiO2. Continue bronchodilators and steroids and antibiotics. He is doing good progress. I reassured him of the results of the CAT scan. Monitor the cardiac rhythm. We' ll follow.
[2017-02-06 20:36] LABS: Glucose,Whole Blood 160 mg/dL (75-99)
[2017-02-06] MEDS: LORazepam 2 MG/ML SYRINGE IV PRN (22:22)
[2017-02-07 05:45] LABS: Glucose,Whole Blood 151 mg/dL (75-99)
[2017-02-07] MEDS: LEVOTHYROXINE 125 MCG TAB PO SCH (06:39)
[2017-02-07] MEDS: PANTOPRAZOLE 40 MG TABLET PO SCH (06:39)
[2017-02-07] MEDS: methylPREDNISolone SOD SUCCI 125 MG/2 ML VIAL IV SCH ×3 (06:39→17:43)
[2017-02-07] MEDS: INSULIN LISPRO (humaLOG) 300 UNIT/3 ML VIAL SQ SCH ×4 (06:40→21:34)
[2017-02-07] MEDS: BUDESONIDE 0.5 MG/2 ML NEBU INHALATION SCH ×2 (07:49→20:40)
[2017-02-07] MEDS: FORMOTEROL FUMARATE 20 MCG/2 ML NEBU INHALATION SCH ×2 (07:50→20:41)
[2017-02-07] MEDS: IPRATROPIUM-ALBUTEROL 3 ML NEB INHALATION SCH ×4 (07:50→20:41)
--- NOTE | 2017-02-07 08:20 | PN ---
PROGRESS NOTE DATE OF SERVICE: 02/06/2017. SUBJECTIVE DATA/BRIEF HISTORY: This is a 76-year-old gentleman with history of lymphoma. Thereafter, apparently was noted to have dysphagia secondary to what appears to be lesions found on the esophagus secondary to lymphoma. The patient was treated at [facility] and had significant aspiration; hence, has been on tube feeding only with strict n.p.o. The patient apparently was recently discharged from [facility] on Thursday after undergoing 2 cycles of chemotherapy. The patient was to follow up with his physician at [facility] as well. 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 The patient was discharged on 2 L supplemental oxygen. However, the patient was brought back to the hospital with difficulty in breathing, was slightly confused. The patient today is requiring 4-6 L of supplemental oxygen with Opti Flow machine. The patient also underwent some workup for encephalopathy, was started on Rocephin and Zithromax due to acute sinusitis. The patient had recent aspiration pneumonia. A CT angiogram of the chest was also done to rule out a pulmonary embolism, which was negative. Today, the patient is extremely hard of hearing. Denies any additional complaints. His who is at bedside gave most of the history. Does not appear to have a productive cough. No other complaints were reported by the nursing staff as well. OBJECTIVE DATA: GENERAL APPEARANCE: At his baseline. No acute distress. LUNGS: Diminished breath sounds. No rhonchi, wheezing or crackles. HEART: Irregularly irregular. No murmurs appreciated. ABDOMEN: Soft, nontender. PEG tube is noted. LOWER EXTREMITIES: No edema is noted. NEURO: Moves all 4 extremities. The left-sided facial droop consistent with a Fletcher's palsy is appreciated, currently on 6 L supplemental oxygen. The vitals today include temperature 97.4, heart rate is 87, respiratory rate 18 , blood pressure 120/58, saturating 91% on 6 L of supplemental oxygen. LABORATORY DATA: The glucose levels were between 156 and 203. ASSESSMENT AND PLAN: 1. Acute exacerbation of chronic obstructive pulmonary disease with acute on chronic hypoxemic respiratory failure. 2. CLL with secondary hypogammaglobinemia. 3. Paroxysmal atrial fibrillation, currently rate controlled. 4. Hypothyroidism. 5. Recent varicella zoster infection. 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 7. 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 The patient is currently on significant oxygen. Will discontinue off the flow. Start high-flow oxygen as the patient has been on prior occasion use significant air. PLAN: 1. Patient is currently on significant supplemental oxygen. will discontinue Optiflow and will start high flow oxygen as the patient has had eye irritation due to significant air. 2. Will empirically treat the left eye with gentamicin eye cream. 3. Continue Solu-Medrol. 4. Enteric feeding. 5. GI prophylaxis will be started as patient is critically ill and is on high- dose steroid therapy. 6. Will follow. MMODL / IJN: [id number] / MTDD
[2017-02-07] MEDS: MULTIVITAMINS, THERA 1 EACH TAB PO SCH (09:31)
[2017-02-07] MEDS: GENTAMICIN 0.3% OPHTH OINT 3.5 GM TUBE LEFT EYE SCH ×2 (09:31→21:35)
[2017-02-07] MEDS: AZITHROMYCIN 500 MG TAB PO SCH (09:31)
[2017-02-07] MEDS: DILTIAZEM ORAL 30 MG TAB PO SCH ×3 (09:31→21:35)
[2017-02-07] MEDS: SODIUM CHLORIDE 0.9% 1,000 ML IV SCH ×2 (09:36→21:35)
[2017-02-07 11:37] LABS: Glucose,Whole Blood 147 mg/dL (75-99)
--- NOTE | 2017-02-07 13:36 | P.PN ---
Subjective sent illness: 76-year-old male patient presented to the emergency department with increased shortness of breath, cough, chest tightness and wheezing. The patient was treated recently at [facility] for pneumonia. He was also given diagnosis of Fletcher's palsy. He was also found to have difficulty in swallowing and he was given a PEG tube for enteral feeding and nutritional support. His chest x-rays have any acute pulmonary infiltrates. The patient is bronchospastic and wheezy and he was started on a combination of bronchodilators and systemic steroids will be also added. No significant sputum production. No clear-cut history of aspiration of food material. This patient is known to have COPD. He is also known to have chronic lymphocytic leukemia who has been followed up by Dr Bradshaw on an outpatient basis. The patient lives in [place] and he goes to [place] . The patient's CLL has been essentially stable. The patient did not have any indication for therapy and his been monitored clinically. He also has COPD. He has been seen by a internal medicine nurse practitioner in [place], and he has undergone a pulmonary function test and he was told that his lung capacities in order of 50% . I'm assuming his FEV1 is in the range of 50%. The patient was given Symbicort 160/4.5, 2 puffs twice daily regarding maintenance therapy for COPD. Denies having any recurrent exacerbations. Denies having any major pulmonary complications from the COPD. Patient was admitted To [facility] back in December 2016. At that time he was having difficulties with swallowing and soreness in his throat and tongue and change in his voice along with some difficulties in swallowing and speech. He was also having persistent fever and he developed a body rash which probably at a later stage attributed to be related to a viral infection/questionable chickenpox an immune compromised patient knowing that the skin lesion that was taken do not to be positive for VZV virus. The patient also has chronic atrial fibrillation and he was treated in the past for A. fib/RVR. He is having the same issue for now is currently on Cardizem drip at 5 mg an hour. Echocardiogram showed mild concentric hypertrophy. He has an ejection fraction of 55%. Mild MR and mild TR. No vegetations. On I'm seeing this patient in follow-up. I was able to meet and get more information from his . As mentioned, the patient has complication of chronic lymphocytic leukemia. 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 The patient was infected with varicella virus, possibly a chickenpox event, presenting with diffuse rash and subsequently the patient developed a Fletcher's palsy which resulted in significant positive left face, hearing deficits in addition. The patient also had difficulty in swallowing. Further ENT evaluation that was done at [facility] revealed that the patient had recurrent or extension of his CLL into his posterior oropharyngeal area which was affecting his swallow. Based on that the patient was given a PEG tube. He was treated for pneumonia. Subsequently was given systemic chemotherapy. I saw this patient yesterday in consultation and he was an acute COPD exacerbation. I gave him bronchodilators and systemic steroids. Today's more hypoxic and was placed on high flow oxygen at 4 L/m nasal cannula. A CT angios the chest needs to follow up to rule out any pneumonia/pulmonary embolism /any other abnormalities contributing to his hypoxemia and shortness of breath. MRI of the brain was done that showed no acute abnormalities and there is evidence of pansinusitis. The patient is currently on IV Rocephin 1 g every 24 hours and Zithromax oral. In terms of his atrial fibrillation, the patient is under better control and currently is on oral Cardizem 30 mg by mouth 3 times a day. He is on no anticoagulants for now. On 02/06/2017, I'm seeing this patient in follow-up. He is looking much better. Less short of breath. The high flow oxygen has been discontinued and the patient is currently on 4-6 L/m nasal cannula and his saturations around 96% . He is breathing much easier. No shortness of breath. Cough and congestion still present although less compared to yesterday. He underwent a CAT scan of the chest that shows COPD. No evidence of any pulmonary embolism. No evidence of an acute pneumonia atelectasis or effusions. Mediastinum was also clear. As such the patient is a improving. He is afebrile. His white cell count was gradually dropping is currently down to 17.4. He continues to receive enteral feeding for nutritional support. He is on Rocephin and Zithromax as empiric antibiotic coverage. He is on DuoNeb, Pulmicort Respules, Perforomist neb last treatment and IV Solu-Medrol. On 02/07/2017 the patient is stable. Is still on 5-6 L of oxygen nasal cannula. His COPD exacerbations gradually improving. CAT scan of the chest results were noted. He is still receiving PEG tube feeding for nutritional support. The is concerned that he may be aspirating while receiving the packed to feed and for that reason dye will be added to the enteral feeding/ tube feeds. The patient is still on broad-spectrum antibiotics. The patient is doing well. 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 Fletcher's palsy is gradually improving. He feels the ability to close the eye is improved. He may benefit from another swallow evaluation at the later stage. The sputum sample if was collected showed presumed staph aureus and Enterobacter. The patient is on a combination of Zithromax and Rocephin. I would suggest monitoring the cultures and make appropriate adjustments based on his final cultures and sensitivities. Note that the CAT scan of the chest does not show any significant pneumonia. Objective - Vital Signs Vital signs: Vital Signs Temp 97.6 F 02/07/17 11:57 Pulse 104 H 02/07/17 11:57 Resp 20 02/07/17 11:57 BP 128/61 02/07/17 11:57 Pulse Ox 89 L 02/07/17 11:57 Intake & Output 02/06/17 02/07/17 02/07/17 18:59 06:59 18:59 Output Total 500 Balance -500 Weight 86.1 kg 88 kg Output: Urine 500 Other: Voiding Method Urinal # Voids 1 # Bowel Movements 1 1 - Exam The patient is a mild degree of Restoril distress even at rest. He is not using excessive muscle breathing. There is atraumatic normocephalic and the patient has a facial asymmetry with left-sided weakness related to Fletcher's palsy. There is increased salivation lacrimation so the left eye. Neck is supple and there is no JVDs no goiter or neck masses. Lungs sounds are diminished and there is diffuse expiratory wheezes total lung his bilaterally and there is prolongation of expiratory phase of breathing. Heart sounds are irregular, possible sinus stool, no cervical murmurs appreciated.Abdominal exam revealed normal bowel sounds. The abdomen was soft, non-tender, and without masses, organomegaly, or appreciable enlargement of the abdominal aorta.Examination of the extremities revealed easily palpable radial, femoral and pedal pulses. There was no cyanosis, clubbing or edema. - Labs CBC & Chem 7: 02/04/17 09:13 02/04/17 09:13 Labs: Abnormal Lab Results - Last 24 Hours (Table) 02/06/17 02/06/17 02/07/17 Range/Units 16:33 20:34 05:43 POC Glucose (mg/dL) 163 H 160 H 151 H (75-99) mg/dL 02/07/17 Range/Units 11:35 POC Glucose (mg/dL) 147 H (75-99) mg/dL Microbiology - Last 24 Hours (Table) 02/05/17 00:45 Gram Stain - Preliminary Sputum Sputum Culture - Preliminary Enterobacter cloacae Presumptive Staph aureus 02/03/17 11:26 Blood Culture - Preliminary Blood No Growth after 72 hours Assessment and Plan Plan: Assessment 1 acute COPD exacerbation with secondary shortness of breath, improving and the CAT scan of the chest is been negative. The sputum is growing Enterobacter and presumed staph aureus. Based on the fact that the CAT scan is negative and the patient is improving we'll continue Rocephin and Zithromax. We'll make further antibiotic adjustments based on the final cultures and sensitivities. 2 acute hypoxic respiratory failure, improving 3 COPD per history with a baseline FEV1 of estimated to be at 50% of predicted maintained on Symbicort on outpatient basis 4 chronic leukocytic leukemia, with secondary hypogammaglobulinemia. 5 paroxysmal A. fib fibrillation with rapid ventricular response and currently patient IV Cardizem for rate control 6 hypothyroidism 7 recent viral skin rash, possibly related to chickenpox nontender the skin lesion was positive for VZV by PCR. 8 Fletcher's palsy 9 difficulty with swallowing secondary to CLL involving the posterior oropharynx and the laryngeal odell based on an ENT evaluation was done [facility]. The patient currently is receiving enteral feeding for nutritional support 10 enteral feeding for nutritional support through a PEG tube. Rule out possible aspiration 11 impaired hearing post viral Plan Monitor the sputum culture and make appropriate antibiotic adjustments accordingly. He is stable. He is improving. Continue bronchodilators. Continue steroids. Repeat swallow evaluation by Thursday. Add coloring material to the enteral feeding to make sure there is no aspiration. We'll continue to follow.
[2017-02-07] MEDS ORDERED: LEVOFLOXACIN 750MG-D5W PMX 750 MG in DEXTROSE/WATER 1 150ML.BAG IVPB SCH (15:45)
[2017-02-07 16:31] LABS: Glucose,Whole Blood 153 mg/dL (75-99)
--- NOTE | 2017-02-07 17:20 | P.PN ---
Subjective This is a 76-year-old gentleman with history of lymphoma. Thereafter, apparently was noted to have dysphagia secondary to what appears to be lesions found on the esophagus secondary to lymphoma. The patient was treated at [facility] and had significant aspiration; hence, has been on tube feeding only with strict n.p.o. The patient apparently was recently discharged from [facility] on Thursday after undergoing 2 cycles of chemotherapy. The patient was to follow up with his physician at [facility] as well. 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 The patient was discharged on 2 L supplemental oxygen. However, the patient was brought back to the hospital with difficulty in breathing, was slightly confused. The patient today is requiring 4-6 L of supplemental oxygen with Opti Flow machine. The patient also underwent some workup for encephalopathy, was started on Rocephin and Zithromax due to acute sinusitis. The patient had recent aspiration pneumonia. A CT angiogram of the chest was also done to rule out a pulmonary embolism, which was negative. 02/07/2017 Patient is currently on 4 L supplement oxygen Appears to be in better spirits. States that he feels better in regards to his breathing distress and his eyes also improved No fevers abnormal rhythms are reported by the nursing staff. OBJECTIVE DATA: GENERAL APPEARANCE: At his baseline. No acute distress. LUNGS: Diminished breath sounds. Coarse breath sounds no change with cough HEART: Irregularly irregular. No murmurs appreciated. ABDOMEN: Soft, nontender. PEG tube is noted. LOWER EXTREMITIES: No edema is noted. NEURO: Moves all 4 extremities. The left-sided facial droop consistent with a Fletcher's palsy is appreciated, currently on 6 L supplemental oxygen. ASSESSMENT AND PLAN: 1. Acute exacerbation of chronic obstructive pulmonary disease with acute on chronic hypoxemic respiratory failure. 2. CLL with secondary hypogammaglobinemia. 3. Paroxysmal atrial fibrillation, currently rate controlled. 4. Hypothyroidism. 5. Recent varicella zoster infection. 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 7. 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 PLAN: Continue high flow oxygen. 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 Patient will likely benefit from a rehab stay OT evaluation will also be done patient needs to echo and ice to his new loss of hearing Objective - Vital Signs Vital signs: Vital Signs Temp 97.6 F 02/07/17 11:57 Pulse 88 02/07/17 16:43 Resp 20 02/07/17 11:57 BP 128/61 02/07/17 11:57 Pulse Ox 92 L 02/07/17 16:29 Intake & Output 02/06/17 02/07/17 02/07/17 18:59 06:59 18:59 Output Total 500 Balance -500 Weight 86.1 kg 88 kg Output: Urine 500 Other: Voiding Method Urinal # Voids 1 # Bowel Movements 1 1 - Labs CBC & Chem 7: 02/04/17 09:13 02/04/17 09:13 Labs: Abnormal Lab Results - Last 24 Hours (Table) 02/06/17 02/07/17 02/07/17 Range/Units 20:34 05:43 11:35 POC Glucose (mg/dL) 160 H 151 H 147 H (75-99) mg/dL 02/07/17 Range/Units 16:30 POC Glucose (mg/dL) 153 H (75-99) mg/dL Microbiology - Last 24 Hours (Table) 02/03/17 11:26 Blood Culture - Preliminary Blood No Growth after 96 hours 02/05/17 00:45 Gram Stain - Preliminary Sputum Sputum Culture - Preliminary Enterobacter cloacae Presumptive Staph aureus
[2017-02-07 21:13] LABS: Glucose,Whole Blood 151 mg/dL (75-99)
[2017-02-08] MEDS: methylPREDNISolone SOD SUCCI 125 MG/2 ML VIAL IV SCH ×5 (01:37→23:43)
[2017-02-08 06:03] LABS: Glucose,Whole Blood 177 mg/dL (75-99)
[2017-02-08] MEDS: LEVOTHYROXINE 125 MCG TAB PO SCH (06:11)
[2017-02-08] MEDS: PANTOPRAZOLE 40 MG TABLET PO SCH (06:11)
[2017-02-08] MEDS: INSULIN LISPRO (humaLOG) 300 UNIT/3 ML VIAL SQ SCH ×4 (06:12→21:56)
[2017-02-08 06:36] LABS: Anisocytosis Moderate; Aty Lym Flag Moderate; CH 26.9; HCT 31.9 % (39.0-53.0); HDW 3.04; HGB 9.8 gm/dL (13.0-17.5); Hypochromasia Marked; MCH 28.9 pg (25.0-35.0); MCHC 30.9 g/dL (31.0-37.0); MCV 93.7 fL (80.0-100.0); Macrocytosis Moderate; Mean Platelet Volume 7.2; RBC 3.41 m/uL (4.30-5.90); RDW 22.5 % (11.5-15.5); WBC 14.3 k/uL (3.8-10.6); WBC (Perox) 14.36
[2017-02-08 06:49] LABS: ALT 43 U/L (21-72); AST 17 U/L (17-59); Alkaline Phosphatase 76 U/L (38-126); Anion Gap 6 mmol/L; Blood Urea Nitrogen 22 mg/dL (9-20); Calcium 8.4 mg/dL (8.4-10.2); Carbon Dioxide 28 mmol/L (22-30); Chloride 106 mmol/L (98-107); Glucose 161 mg/dL (74-99); Non-African American GFR(MDRD) >60 (>60 ml/min/1.73 sqM); Potassium 4.8 mmol/L (3.5-5.1); Sodium 140 mmol/L (137-145); Total Bilirubin 0.3 mg/dL (0.2-1.3); Total Protein 4.4 g/dL (6.3-8.2)
[2017-02-08 07:23] LABS: Add Differential Manual Differential
[2017-02-08 07:26] LABS: Manual Review Performed; Nucleated Red Blood Cells 0 /100 WBC (0-0); Total Cells Counted 100
[2017-02-08 07:27] LABS: Polychromasia Present
[2017-02-08] MEDS: DILTIAZEM ORAL 30 MG TAB PO SCH ×3 (08:07→21:57)
[2017-02-08] MEDS: GENTAMICIN 0.3% OPHTH OINT 3.5 GM TUBE LEFT EYE SCH ×2 (08:07→21:57)
[2017-02-08] MEDS: ARTIFICIAL TEARS-HYPROMELLOSE DROPS 15 ML BTL BOTH EYES PRN (08:07)
[2017-02-08] MEDS: SODIUM CHLORIDE 0.9% 1,000 ML IV SCH ×2 (08:07→23:56)
[2017-02-08] MEDS: AZITHROMYCIN 500 MG TAB PO SCH (08:07)
[2017-02-08] MEDS: BUDESONIDE 0.5 MG/2 ML NEBU INHALATION SCH ×2 (08:23→19:51)
[2017-02-08] MEDS: IPRATROPIUM-ALBUTEROL 3 ML NEB INHALATION SCH ×4 (08:23→19:50)
[2017-02-08] MEDS: FORMOTEROL FUMARATE 20 MCG/2 ML NEBU INHALATION SCH ×2 (08:23→19:51)
[2017-02-08 12:14] LABS: Glucose,Whole Blood 149 mg/dL (75-99)
[2017-02-08] MEDS: MULTIVITAMINS, THERA 1 EACH TAB PO SCH (12:18)
--- NOTE | 2017-02-08 14:54 | P.PN ---
Subjective sent illness: 76-year-old male patient presented to the emergency department with increased shortness of breath, cough, chest tightness and wheezing. The patient was treated recently at [facility] for pneumonia. He was also given diagnosis of Fletcher's palsy. He was also found to have difficulty in swallowing and he was given a PEG tube for enteral feeding and nutritional support. His chest x-rays have any acute pulmonary infiltrates. The patient is bronchospastic and wheezy and he was started on a combination of bronchodilators and systemic steroids will be also added. No significant sputum production. No clear-cut history of aspiration of food material. This patient is known to have COPD. He is also known to have chronic lymphocytic leukemia who has been followed up by Dr Bradshaw on an outpatient basis. The patient lives in [place] and he goes to [place] . The patient's CLL has been essentially stable. The patient did not have any indication for therapy and his been monitored clinically. He also has COPD. He has been seen by a auto repair shop manager in [place], and he has undergone a pulmonary function test and he was told that his lung capacities in order of 50% . I'm assuming his FEV1 is in the range of 50%. The patient was given Symbicort 160/4.5, 2 puffs twice daily regarding maintenance therapy for COPD. Denies having any recurrent exacerbations. Denies having any major pulmonary complications from the COPD. Patient was admitted To [facility] back in December 2016. At that time he was having difficulties with swallowing and soreness in his throat and tongue and change in his voice along with some difficulties in swallowing and speech. He was also having persistent fever and he developed a body rash which probably at a later stage attributed to be related to a viral infection/questionable chickenpox an immune compromised patient knowing that the skin lesion that was taken do not to be positive for VZV virus. The patient also has chronic atrial fibrillation and he was treated in the past for A. fib/RVR. He is having the same issue for now is currently on Cardizem drip at 5 mg an hour. Echocardiogram showed mild concentric hypertrophy. He has an ejection fraction of 55%. Mild MR and mild TR. No vegetations. On I'm seeing this patient in follow-up. I was able to meet and get more information from his . As mentioned, the patient has complication of chronic lymphocytic leukemia. 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 The patient was infected with varicella virus, possibly a chickenpox event, presenting with diffuse rash and subsequently the patient developed a Fletcher's palsy which resulted in significant positive left face, hearing deficits in addition. The patient also had difficulty in swallowing. Further ENT evaluation that was done at [facility] revealed that the patient had recurrent or extension of his CLL into his posterior oropharyngeal area which was affecting his swallow. Based on that the patient was given a PEG tube. He was treated for pneumonia. Subsequently was given systemic chemotherapy. I saw this patient yesterday in consultation and he was an acute COPD exacerbation. I gave him bronchodilators and systemic steroids. Today's more hypoxic and was placed on high flow oxygen at 4 L/m nasal cannula. A CT angios the chest needs to follow up to rule out any pneumonia/pulmonary embolism /any other abnormalities contributing to his hypoxemia and shortness of breath. MRI of the brain was done that showed no acute abnormalities and there is evidence of pansinusitis. The patient is currently on IV Rocephin 1 g every 24 hours and Zithromax oral. In terms of his atrial fibrillation, the patient is under better control and currently is on oral Cardizem 30 mg by mouth 3 times a day. He is on no anticoagulants for now. On 02/06/2017, I'm seeing this patient in follow-up. He is looking much better. Less short of breath. The high flow oxygen has been discontinued and the patient is currently on 4-6 L/m nasal cannula and his saturations around 96% . He is breathing much easier. No shortness of breath. Cough and congestion still present although less compared to yesterday. He underwent a CAT scan of the chest that shows COPD. No evidence of any pulmonary embolism. No evidence of an acute pneumonia atelectasis or effusions. Mediastinum was also clear. As such the patient is a improving. He is afebrile. His white cell count was gradually dropping is currently down to 17.4. He continues to receive enteral feeding for nutritional support. He is on Rocephin and Zithromax as empiric antibiotic coverage. He is on DuoNeb, Pulmicort Respules, Perforomist neb last treatment and IV Solu-Medrol. On 02/07/2017 the patient is stable. Is still on 5-6 L of oxygen nasal cannula. His COPD exacerbations gradually improving. CAT scan of the chest results were noted. He is still receiving PEG tube feeding for nutritional support. The is concerned that he may be aspirating while receiving the packed to feed and for that reason dye will be added to the enteral feeding/ tube feeds. The patient is still on broad-spectrum antibiotics. The patient is doing well. 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 Fletcher's palsy is gradually improving. He feels the ability to close the eye is improved. He may benefit from another swallow evaluation at the later stage. The sputum sample if was collected showed presumed staph aureus and Enterobacter. The patient is on a combination of Zithromax and Rocephin. I would suggest monitoring the cultures and make appropriate adjustments based on his final cultures and sensitivities. Note that the CAT scan of the chest does not show any significant pneumonia. On 02/08/2017 the patient is gradually improving. The oxygen flow has been cut down to 4 L of oxygen nasal cannula. This is his baseline. He is not aspirating. He is receiving enteral feeding for nutritional support. No fever or chills. Still awaiting the final sensitivities on the sputum analysis. The patient had Enterobacter and presumed staph aureus. Enterobacter is a ESBL producing organism. Despite this, the patient does not show any signs of septicemia. She he has been maintained on a combination of Rocephin and Zithromax which is not ideal for this of infection of the systems out to be a true infection. For all this reasons, I'm going to consult infectious disease. Objective - Vital Signs Vital signs: Vital Signs Temp 97.4 F L 02/08/17 12:00 Pulse 101 H 02/08/17 12:00 Resp 19 02/08/17 12:00 BP 136/66 02/08/17 12:00 Pulse Ox 93 L 02/08/17 12:00 Intake & Output 02/07/17 02/08/17 02/08/17 18:59 06:59 18:59 Weight 87.5 kg Other: Voiding Method Urinal Urinal # Voids 1 # Bowel Movements 1 - Exam The patient is a mild degree of Restoril distress even at rest. He is not using excessive muscle breathing. There is atraumatic normocephalic and the patient has a facial asymmetry with left-sided weakness related to Fletcher's palsy. There is increased salivation lacrimation so the left eye. Neck is supple and there is no JVDs no goiter or neck masses. Lungs sounds are diminished and there is diffuse expiratory wheezes total lung his bilaterally and there is prolongation of expiratory phase of breathing. Heart sounds are irregular, possible sinus stool, no cervical murmurs appreciated.Abdominal exam revealed normal bowel sounds. The abdomen was soft, non-tender, and without masses, organomegaly, or appreciable enlargement of the abdominal aorta.Examination of the extremities revealed easily palpable radial, femoral and pedal pulses. There was no cyanosis, clubbing or edema. - Labs CBC & Chem 7: 02/08/17 05:45 02/08/17 05:45 Labs: Abnormal Lab Results - Last 24 Hours (Table) 02/07/17 02/07/17 02/08/17 Range/Units 16:30 20:54 05:45 WBC 14.3 H (3.8-10.6) k/uL RBC 3.41 L (4.30-5.90) m/uL Hgb 9.8 L (13.0-17.5) gm/dL Hct 31.9 L (39.0-53.0) % MCHC 30.9 L (31.0-37.0) g/dL RDW 22.5 H (11.5-15.5) % Lymphocytes # (Manual) 5.72 H (1.0-4.8) k/uL Monocytes # (Manual) 1.14 H (0-1.0) k/uL BUN (9-20) mg/dL Glucose (74-99) mg/dL POC Glucose (mg/dL) 153 H 151 H (75-99) mg/dL Total Protein (6.3-8.2) g/dL Albumin (3.5-5.0) g/dL 02/08/17 02/08/17 02/08/17 Range/Units 05:45 06:01 11:56 WBC (3.8-10.6) k/uL RBC (4.30-5.90) m/uL Hgb (13.0-17.5) gm/dL Hct (39.0-53.0) % MCHC (31.0-37.0) g/dL RDW (11.5-15.5) % Lymphocytes # (Manual) (1.0-4.8) k/uL Monocytes # (Manual) (0-1.0) k/uL BUN 22 H (9-20) mg/dL Glucose 161 H (74-99) mg/dL POC Glucose (mg/dL) 177 H 149 H (75-99) mg/dL Total Protein 4.4 L (6.3-8.2) g/dL Albumin 2.6 L (3.5-5.0) g/dL Microbiology - Last 24 Hours (Table) 02/03/17 11:26 Blood Culture - Preliminary Blood No Growth after 120 hours Assessment and Plan Plan: Assessment 1 acute COPD exacerbation with secondary shortness of breath, improving and the CAT scan of the chest is been negative. The sputum is growing Enterobacter and presumed staph aureus. Based on the fact that the CAT scan is negative and the patient is improving we'll continue Rocephin and Zithromax. Note that the Enterobacter the apple turner to be an ESBL producing organism. For this reason a ID consultation will be obtained. Clinically the patient is improving. He is currently down to 4 L of oxygen nasal cannula. 2 acute hypoxic respiratory failure, improving 3 COPD per history with a baseline FEV1 of estimated to be at 50% of predicted maintained on Symbicort on outpatient basis 4 chronic leukocytic leukemia, with secondary hypogammaglobulinemia. 5 paroxysmal A. fib fibrillation with rapid ventricular response and currently patient IV Cardizem for rate control 6 hypothyroidism 7 recent viral skin rash, possibly related to chickenpox nontender the skin lesion was positive for VZV by PCR. 8 Fletcher's palsy 9 difficulty with swallowing secondary to CLL involving the posterior oropharynx and the laryngeal odell based on an ENT evaluation was done [facility]. The patient currently is receiving enteral feeding for nutritional support 10 enteral feeding for nutritional support through a PEG tube. Rule out possible aspiration 11 impaired hearing post viral Plan Insult infectious disease. Stop the Levaquin and Zithromax for now. Continue enteral feeding for nutritional support. FiO2 has been weaned down to 4 L/m nasal cannula. We'll continue to follow. Likely the patient is improving. We' ll start tapering the steroids as of tomorrow.
--- NOTE | 2017-02-08 16:23 | P.PN ---
Subjective This is a 76-year-old gentleman with history of lymphoma. Thereafter, apparently was noted to have dysphagia secondary to what appears to be lesions found on the esophagus secondary to lymphoma. The patient was treated at [facility] and had significant aspiration; hence, has been on tube feeding only with strict n.p.o. The patient apparently was recently discharged from [facility] on Thursday after undergoing 2 cycles of chemotherapy. The patient was to follow up with his physician at [facility] as well. 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 The patient was discharged on 2 L supplemental oxygen. However, the patient was brought back to the hospital with difficulty in breathing, was slightly confused. The patient today is requiring 4-6 L of supplemental oxygen with Opti Flow machine. The patient also underwent some workup for encephalopathy, was started on Rocephin and Zithromax due to acute sinusitis. The patient had recent aspiration pneumonia. A CT angiogram of the chest was also done to rule out a pulmonary embolism, which was negative. 02/07/2017 Patient is currently on 4 L supplement oxygen Appears to be in better spirits. States that he feels better in regards to his breathing distress and his eyes also improved No fevers abnormal rhythms are reported by the nursing staff. 02/08/2017 Some degree of aspiration is suspected. The rigid did implement the food coloring to patient's tube feedings however no sputum is noted with the same color Patient again was laid flat last night aspiration precautions were not appropriately followed However patient states that he is feeling somewhat better today OBJECTIVE DATA: GENERAL APPEARANCE: At his baseline. No acute distress. LUNGS: Diminished breath sounds. Coarse breath sounds, some expiratory wheeze is appreciated bibasilar crackles are also noted HEART: Irregularly irregular. No murmurs appreciated. ABDOMEN: Soft, nontender. PEG tube is noted. LOWER EXTREMITIES: No edema is noted. NEURO: Moves all 4 extremities. The left-sided facial droop consistent with a Fletcher's palsy is appreciated, currently on 6 L supplemental oxygen. ASSESSMENT AND PLAN: 1. Acute exacerbation of chronic obstructive pulmonary disease with acute on chronic hypoxemic respiratory failure. 2. CLL with secondary hypogammaglobinemia. 3. Paroxysmal atrial fibrillation, currently rate controlled. 4. Hypothyroidism. 5. Recent varicella zoster infection. 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 7. 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 PLAN: Continue with the supplemental oxygen Continue with the therapy for COPD exacerbation Flutter valve is to be implemented Repeat the modified barium swallow on Thursday DVT prophylaxis this was discussed with the patient's Objective - Vital Signs Vital signs: Vital Signs Temp 97.4 F L 02/08/17 12:00 Pulse 90 02/08/17 16:07 Resp 19 02/08/17 12:00 BP 136/66 02/08/17 12:00 Pulse Ox 93 L 02/08/17 12:00 Intake & Output 02/07/17 02/08/17 02/08/17 18:59 06:59 18:59 Weight 87.5 kg Other: Voiding Method Urinal Urinal # Voids 1 # Bowel Movements 1 - Labs CBC & Chem 7: 02/08/17 05:45 02/08/17 05:45 Labs: Abnormal Lab Results - Last 24 Hours (Table) 02/07/17 02/07/17 02/08/17 Range/Units 16:30 20:54 05:45 WBC 14.3 H (3.8-10.6) k/uL RBC 3.41 L (4.30-5.90) m/uL Hgb 9.8 L (13.0-17.5) gm/dL Hct 31.9 L (39.0-53.0) % MCHC 30.9 L (31.0-37.0) g/dL RDW 22.5 H (11.5-15.5) % Lymphocytes # (Manual) 5.72 H (1.0-4.8) k/uL Monocytes # (Manual) 1.14 H (0-1.0) k/uL BUN (9-20) mg/dL Glucose (74-99) mg/dL POC Glucose (mg/dL) 153 H 151 H (75-99) mg/dL Total Protein (6.3-8.2) g/dL Albumin (3.5-5.0) g/dL 02/08/17 02/08/17 02/08/17 Range/Units 05:45 06:01 11:56 WBC (3.8-10.6) k/uL RBC (4.30-5.90) m/uL Hgb (13.0-17.5) gm/dL Hct (39.0-53.0) % MCHC (31.0-37.0) g/dL RDW (11.5-15.5) % Lymphocytes # (Manual) (1.0-4.8) k/uL Monocytes # (Manual) (0-1.0) k/uL BUN 22 H (9-20) mg/dL Glucose 161 H (74-99) mg/dL POC Glucose (mg/dL) 177 H 149 H (75-99) mg/dL Total Protein 4.4 L (6.3-8.2) g/dL Albumin 2.6 L (3.5-5.0) g/dL Microbiology - Last 24 Hours (Table) 02/03/17 11:26 Blood Culture - Preliminary Blood No Growth after 120 hours
[2017-02-08 17:37] LABS: Glucose,Whole Blood 146 mg/dL (75-99)
[2017-02-08 20:50] LABS: Glucose,Whole Blood 157 mg/dL (75-99)
[2017-02-08] MEDS: LORazepam 2 MG/ML SYRINGE IV PRN (22:43)
[2017-02-09 06:13] LABS: Glucose,Whole Blood 144 mg/dL (75-99)
[2017-02-09] MEDS: methylPREDNISolone SOD SUCCI 125 MG/2 ML VIAL IV SCH ×2 (06:14→12:27)
[2017-02-09] MEDS: LEVOTHYROXINE 125 MCG TAB PO SCH (06:15)
[2017-02-09] MEDS: PANTOPRAZOLE 40 MG TABLET PO SCH (06:15)
[2017-02-09] MEDS: INSULIN LISPRO (humaLOG) 300 UNIT/3 ML VIAL SQ SCH ×4 (06:15→21:40)
[2017-02-09] MEDS: BUDESONIDE 0.5 MG/2 ML NEBU INHALATION SCH ×2 (08:01→19:52)
[2017-02-09] MEDS: FORMOTEROL FUMARATE 20 MCG/2 ML NEBU INHALATION SCH ×2 (08:01→19:52)
[2017-02-09] MEDS: IPRATROPIUM-ALBUTEROL 3 ML NEB INHALATION SCH ×4 (08:01→19:52)
[2017-02-09] MEDS: DILTIAZEM ORAL 30 MG TAB PO SCH ×3 (08:16→21:41)
[2017-02-09] MEDS: ARTIFICIAL TEARS-HYPROMELLOSE DROPS 15 ML BTL BOTH EYES PRN (08:16)
[2017-02-09] MEDS: GENTAMICIN 0.3% OPHTH OINT 3.5 GM TUBE LEFT EYE SCH ×2 (08:16→21:41)
[2017-02-09] MEDS: MULTIVITAMINS, THERA 1 EACH TAB PO SCH (08:18)
[2017-02-09] MEDS: ONDANSETRON 4 MG/2 ML VIAL IVP PRN (11:13)
[2017-02-09] MEDS ORDERED: VANCOMYCIN 1,350 MG in SODIUM CHLORIDE 0.9% 250 ML IVPB ONE (11:34)
[2017-02-09 11:50] LABS: Glucose,Whole Blood 139 mg/dL (75-99)
[2017-02-09] MEDS ORDERED: IV VANCOMYCIN PER PHARMACY 1 EACH MISC MISCELLANE ONE (12:00)
[2017-02-09] MEDS: SODIUM CHLORIDE 0.9% 1,000 ML IV SCH (12:28)
[2017-02-09] MEDS: NYSTATIN 100,000 UNIT/ML SUSP 500,000 UNIT/5 ML CUP PO SCH ×3 (12:59→21:40)
[2017-02-09] MEDS ORDERED: VANCOMYCIN 1,750 MG in SODIUM CHLORIDE 0.9% 250 ML IVPB SCH (13:00)
--- NOTE | 2017-02-09 13:28 | P.PN ---
Subjective sent illness: 76-year-old male patient presented to the emergency department with increased shortness of breath, cough, chest tightness and wheezing. The patient was treated recently at [facility] for pneumonia. He was also given diagnosis of Fletcher's palsy. He was also found to have difficulty in swallowing and he was given a PEG tube for enteral feeding and nutritional support. His chest x-rays have any acute pulmonary infiltrates. The patient is bronchospastic and wheezy and he was started on a combination of bronchodilators and systemic steroids will be also added. No significant sputum production. No clear-cut history of aspiration of food material. This patient is known to have COPD. He is also known to have chronic lymphocytic leukemia who has been followed up by Dr Bradshaw on an outpatient basis. The patient lives in [place] and he goes to [place] . The patient's CLL has been essentially stable. The patient did not have any indication for therapy and his been monitored clinically. He also has COPD. He has been seen by a vp product marketing in [place], and he has undergone a pulmonary function test and he was told that his lung capacities in order of 50% . I'm assuming his FEV1 is in the range of 50%. The patient was given Symbicort 160/4.5, 2 puffs twice daily regarding maintenance therapy for COPD. Denies having any recurrent exacerbations. Denies having any major pulmonary complications from the COPD. Patient was admitted To [facility] back in December 2016. At that time he was having difficulties with swallowing and soreness in his throat and tongue and change in his voice along with some difficulties in swallowing and speech. He was also having persistent fever and he developed a body rash which probably at a later stage attributed to be related to a viral infection/questionable chickenpox an immune compromised patient knowing that the skin lesion that was taken do not to be positive for VZV virus. The patient also has chronic atrial fibrillation and he was treated in the past for A. fib/RVR. He is having the same issue for now is currently on Cardizem drip at 5 mg an hour. Echocardiogram showed mild concentric hypertrophy. He has an ejection fraction of 55%. Mild MR and mild TR. No vegetations. On I'm seeing this patient in follow-up. I was able to meet and get more information from his . As mentioned, the patient has complication of chronic lymphocytic leukemia. 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 The patient was infected with varicella virus, possibly a chickenpox event, presenting with diffuse rash and subsequently the patient developed a Fletcher's palsy which resulted in significant positive left face, hearing deficits in addition. The patient also had difficulty in swallowing. Further ENT evaluation that was done at [facility] revealed that the patient had recurrent or extension of his CLL into his posterior oropharyngeal area which was affecting his swallow. Based on that the patient was given a PEG tube. He was treated for pneumonia. Subsequently was given systemic chemotherapy. I saw this patient yesterday in consultation and he was an acute COPD exacerbation. I gave him bronchodilators and systemic steroids. Today's more hypoxic and was placed on high flow oxygen at 4 L/m nasal cannula. A CT angios the chest needs to follow up to rule out any pneumonia/pulmonary embolism /any other abnormalities contributing to his hypoxemia and shortness of breath. MRI of the brain was done that showed no acute abnormalities and there is evidence of pansinusitis. The patient is currently on IV Rocephin 1 g every 24 hours and Zithromax oral. In terms of his atrial fibrillation, the patient is under better control and currently is on oral Cardizem 30 mg by mouth 3 times a day. He is on no anticoagulants for now. On 02/06/2017, I'm seeing this patient in follow-up. He is looking much better. Less short of breath. The high flow oxygen has been discontinued and the patient is currently on 4-6 L/m nasal cannula and his saturations around 96% . He is breathing much easier. No shortness of breath. Cough and congestion still present although less compared to yesterday. He underwent a CAT scan of the chest that shows COPD. No evidence of any pulmonary embolism. No evidence of an acute pneumonia atelectasis or effusions. Mediastinum was also clear. As such the patient is a improving. He is afebrile. His white cell count was gradually dropping is currently down to 17.4. He continues to receive enteral feeding for nutritional support. He is on Rocephin and Zithromax as empiric antibiotic coverage. He is on DuoNeb, Pulmicort Respules, Perforomist neb last treatment and IV Solu-Medrol. On 02/07/2017 the patient is stable. Is still on 5-6 L of oxygen nasal cannula. His COPD exacerbations gradually improving. CAT scan of the chest results were noted. He is still receiving PEG tube feeding for nutritional support. The is concerned that he may be aspirating while receiving the packed to feed and for that reason dye will be added to the enteral feeding/ tube feeds. The patient is still on broad-spectrum antibiotics. The patient is doing well. 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 Fletcher's palsy is gradually improving. He feels the ability to close the eye is improved. He may benefit from another swallow evaluation at the later stage. The sputum sample if was collected showed presumed staph aureus and Enterobacter. The patient is on a combination of Zithromax and Rocephin. I would suggest monitoring the cultures and make appropriate adjustments based on his final cultures and sensitivities. Note that the CAT scan of the chest does not show any significant pneumonia. On 02/08/2017 the patient is gradually improving. The oxygen flow has been cut down to 4 L of oxygen nasal cannula. This is his baseline. He is not aspirating. He is receiving enteral feeding for nutritional support. No fever or chills. Still awaiting the final sensitivities on the sputum analysis. The patient had Enterobacter and presumed staph aureus. Enterobacter is a ESBL producing organism. Despite this, the patient does not show any signs of septicemia. She he has been maintained on a combination of Rocephin and Zithromax which is not ideal for this of infection of the systems out to be a true infection. For all this reasons, I'm going to consult infectious disease. On 02/09/2017 the patient remains stable and he has no specific complaints. He is receiving enteral feeding for nutritional support. Placed and infectious disease consultation to see Dr. martinez regarding the Enterobacter /ESBL producing organism along with the presumed staph aureus. These may be colonization knowing that the patient was not treated for those and he recovered nicely. The patient is on 4 L of oxygen by nasal cannula. No aspiration. Swallow evaluation was done tomorrow. He will be taken off the IV Solu Medrol start on a prednisone burst taper. No other complaints otherwise. His emanating in the hallway. He is active. He is having significant hearing impairment and he still has manifestations of a Fletcher's palsy. Objective - Vital Signs Vital signs: Vital Signs Temp 97.1 F L 02/09/17 12:00 Pulse 88 02/09/17 12:11 Resp 18 02/09/17 12:00 BP 120/56 02/09/17 12:00 Pulse Ox 97 02/09/17 12:00 Intake & Output 02/08/17 02/09/17 02/09/17 18:59 06:59 18:59 Intake Total 575 750 250 Output Total 800 Balance -225 750 250 Weight 90.4 kg Intake: Tube Feeding 325 750 250 Other 250 Output: Urine 800 Other: Voiding Method Urinal Urinal Urinal # Voids 1 # Bowel Movements 1 - Exam The patient is a mild degree of Restoril distress even at rest. He is not using excessive muscle breathing. There is atraumatic normocephalic and the patient has a facial asymmetry with left-sided weakness related to Fletcher's palsy. There is increased salivation lacrimation so the left eye. Neck is supple and there is no JVDs no goiter or neck masses. Lungs sounds are diminished and there is diffuse expiratory wheezes total lung his bilaterally and there is prolongation of expiratory phase of breathing. Heart sounds are irregular, possible sinus stool, no cervical murmurs appreciated.Abdominal exam revealed normal bowel sounds. The abdomen was soft, non-tender, and without masses, organomegaly, or appreciable enlargement of the abdominal aorta.Examination of the extremities revealed easily palpable radial, femoral and pedal pulses. There was no cyanosis, clubbing or edema. - Labs CBC & Chem 7: 02/08/17 05:45 02/08/17 05:45 Labs: Abnormal Lab Results - Last 24 Hours (Table) 02/08/17 02/08/17 02/09/17 Range/Units 17:23 20:48 06:07 POC Glucose (mg/dL) 146 H 157 H 144 H (75-99) mg/dL 02/09/17 Range/Units 11:42 POC Glucose (mg/dL) 139 H (75-99) mg/dL Microbiology - Last 24 Hours (Table) 02/05/17 00:45 Gram Stain - Final Sputum Sputum Culture - Final Enterobacter cloacae Methicillin resist S. aureus 02/03/17 11:26 Blood Culture - Preliminary Blood No Growth after 120 hours Assessment and Plan Plan: Assessment 1 acute COPD exacerbation with secondary shortness of breath, improving and the CAT scan of the chest is been negative. The sputum is growing Enterobacter and presumed staph aureus. Based on the fact that the CAT scan is negative and the patient is improving we'll continue Rocephin and Zithromax. Note that the Enterobacter the collar turner to be an ESBL producing organism. For this reason a ID consultation will be obtained. Clinically the patient is improving. He is currently down to 4 L of oxygen nasal cannula. On 02/09/2017 we are still awaiting an infectious disease consultation. I think the Enterobacter and the staph in his sputum colonizers. The patient is currently not taking any antibiotics. Vancomycin was added by the hospitalist. Note that his chest x-ray did not show any acute pneumonia and the CAT scan of the chest confirmed the finding. 2 acute hypoxic respiratory failure, improving 3 COPD per history with a baseline FEV1 of estimated to be at 50% of predicted maintained on Symbicort on outpatient basis 4 chronic leukocytic leukemia, with secondary hypogammaglobulinemia. 5 paroxysmal A. fib fibrillation with rapid ventricular response and currently patient IV Cardizem for rate control 6 hypothyroidism 7 recent viral skin rash, possibly related to chickenpox nontender the skin lesion was positive for VZV by PCR. 8 Fletcher's palsy 9 difficulty with swallowing secondary to CLL involving the posterior oropharynx and the laryngeal odell based on an ENT evaluation was done [facility]. The patient currently is receiving enteral feeding for nutritional support 10 enteral feeding for nutritional support through a PEG tube. Rule out possible aspiration 11 impaired hearing post viral Plan We'll continue monitoring this patient. We'll obtain a swallow evaluation tomorrow. Stopped IV Solu Medrol start the patient a prednisone burst taper. Swallow evaluation in the morning. Enteral feeding for nutritional support. He is down to 4l of O2 by nasal cannula which is baseline.
--- NOTE | 2017-02-09 15:52 | P.PN ---
Subjective This is a 76-year-old gentleman with history of lymphoma. Thereafter, apparently was noted to have dysphagia secondary to what appears to be lesions found on the esophagus secondary to lymphoma. The patient was treated at [facility] and had significant aspiration; hence, has been on tube feeding only with strict n.p.o. The patient apparently was recently discharged from [facility] on Thursday after undergoing 2 cycles of chemotherapy. The patient was to follow up with his physician at [facility] as well. 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 The patient was discharged on 2 L supplemental oxygen. However, the patient was brought back to the hospital with difficulty in breathing, was slightly confused. The patient today is requiring 4-6 L of supplemental oxygen with Opti Flow machine. The patient also underwent some workup for encephalopathy, was started on Rocephin and Zithromax due to acute sinusitis. The patient had recent aspiration pneumonia. A CT angiogram of the chest was also done to rule out a pulmonary embolism, which was negative. 02/07/2017 Patient is currently on 4 L supplement oxygen Appears to be in better spirits. States that he feels better in regards to his breathing distress and his eyes also improved No fevers abnormal rhythms are reported by the nursing staff. 02/08/2017 Some degree of aspiration is suspected. The rigid did implement the food coloring to patient's tube feedings however no sputum is noted with the same color Patient again was laid flat last night aspiration precautions were not appropriately followed However patient states that he is feeling somewhat better today 02/09/2017 Is doing well is more awake is able to converse longer His only complaint is abdominal discomfort intermittently OBJECTIVE DATA: GENERAL APPEARANCE: At his baseline. No acute distress. LUNGS: Diminished breath sounds. Coarse breath sounds, some expiratory wheeze is appreciated bibasilar crackles are also noted, improved HEART: Irregularly irregular. No murmurs appreciated. ABDOMEN: Soft, nontender. PEG tube is noted. LOWER EXTREMITIES: No edema is noted. NEURO: Moves all 4 extremities. The left-sided facial droop consistent with a Fletcher's palsy is appreciated, currently on 6 L supplemental oxygen. ASSESSMENT AND PLAN: 1. Acute exacerbation of chronic obstructive pulmonary disease with acute on chronic hypoxemic respiratory failure. 2. CLL with secondary hypogammaglobinemia. 3. Paroxysmal atrial fibrillation, currently rate controlled. 4. Hypothyroidism. 5. Recent varicella zoster infection. 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 7. 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 PLAN: Patient is noted to have MRSA. We'll start vancomycin We'll have an ID consult and evaluate the patient is well there may be some benefit with the intermittent IVIG infusion as patient is severely hypogammaglobulinemic Continue with the supplemental oxygen Continue with the therapy for COPD exacerbation We'll decrease free water infusion to 75 mL every 4 hours I suspect a large volume is causing some discomfort every few hours Flutter valve is to be implemented Repeat the modified barium swallow on Thursday DVT prophylaxis this was discussed with the patient's Is improving continue ongoing care. Objective - Vital Signs Vital signs: Vital Signs Temp 97.1 F L 02/09/17 12:00 Pulse 90 02/09/17 15:32 Resp 18 02/09/17 12:00 BP 120/56 02/09/17 12:00 Pulse Ox 97 02/09/17 12:00 Intake & Output 02/08/17 02/09/17 02/09/17 18:59 06:59 18:59 Intake Total 575 750 250 Output Total 800 200 Balance -225 750 50 Weight 90.4 kg Intake: Tube Feeding 325 750 250 Other 250 Output: Urine 800 200 Other: Voiding Method Urinal Urinal Urinal # Voids 1 # Bowel Movements 1 - Labs CBC & Chem 7: 02/08/17 05:45 02/08/17 05:45 Labs: Abnormal Lab Results - Last 24 Hours (Table) 02/08/17 02/08/17 02/09/17 Range/Units 17:23 20:48 06:07 POC Glucose (mg/dL) 146 H 157 H 144 H (75-99) mg/dL 02/09/17 Range/Units 11:42 POC Glucose (mg/dL) 139 H (75-99) mg/dL Microbiology - Last 24 Hours (Table) 02/03/17 11:26 Blood Culture - Final Blood No Growth after 144 hours 02/05/17 00:45 Gram Stain - Final Sputum Sputum Culture - Final Enterobacter cloacae Methicillin resist S. aureus
[2017-02-09] MEDS: predniSONE 20 MG TAB PO SCH (16:36)
[2017-02-09 17:32] LABS: Glucose,Whole Blood 163 mg/dL (75-99)
[2017-02-09 20:23] LABS: Glucose,Whole Blood 152 mg/dL (75-99)
[2017-02-09] MEDS: LORazepam 2 MG/ML SYRINGE IV PRN (22:48)
[2017-02-10 05:45] LABS: Glucose,Whole Blood 133 mg/dL (75-99)
[2017-02-10 05:56] LABS: Anisocytosis Moderate; Aty Lym Flag Slight; CH 28.4; CHCM 30.3; HCT 34.9 % (39.0-53.0); HDW 3.22; HGB 10.2 gm/dL (13.0-17.5); Hypochromasia Marked; MCH 27.8 pg (25.0-35.0); MCHC 29.3 g/dL (31.0-37.0); Macrocytosis Moderate; Mean Platelet Volume 8.3; RBC 3.68 m/uL (4.30-5.90); RDW 23.9 % (11.5-15.5); WBC 16.2 k/uL (3.8-10.6); WBC (Perox) 17.09
[2017-02-10 06:09] LABS: ALT 42 U/L (21-72); AST 18 U/L (17-59); Alkaline Phosphatase 72 U/L (38-126); Anion Gap 4 mmol/L; Blood Urea Nitrogen 27 mg/dL (9-20); Calcium 8.4 mg/dL (8.4-10.2); Carbon Dioxide 30 mmol/L (22-30); Chloride 107 mmol/L (98-107); Glucose 129 mg/dL (74-99); Non-African American GFR(MDRD) >60 (>60 ml/min/1.73 sqM); Potassium 4.4 mmol/L (3.5-5.1); Sodium 141 mmol/L (137-145); Total Bilirubin 0.4 mg/dL (0.2-1.3); Total Protein 4.4 g/dL (6.3-8.2)
[2017-02-10] MEDS: SODIUM CHLORIDE 0.9% 1,000 ML IV SCH ×2 (06:13→13:03)
[2017-02-10 06:24] LABS: Add Differential Manual Differential
[2017-02-10 06:25] LABS: Manual Review Performed; Nucleated Red Blood Cells 0 /100 WBC (0-0); Total Cells Counted 100
[2017-02-10 06:26] LABS: Polychromasia Present
[2017-02-10] MEDS: PANTOPRAZOLE 40 MG TABLET PO SCH (06:38)
[2017-02-10] MEDS: INSULIN LISPRO (humaLOG) 300 UNIT/3 ML VIAL SQ SCH ×4 (06:38→21:26)
[2017-02-10] MEDS: LEVOTHYROXINE 125 MCG TAB PO SCH (06:38)
[2017-02-10] MEDS: FORMOTEROL FUMARATE 20 MCG/2 ML NEBU INHALATION SCH ×2 (08:00→19:32)
[2017-02-10] MEDS: IPRATROPIUM-ALBUTEROL 3 ML NEB INHALATION SCH ×4 (08:00→19:32)
[2017-02-10] MEDS: BUDESONIDE 0.5 MG/2 ML NEBU INHALATION SCH ×2 (08:00→19:32)
[2017-02-10] MEDS: DILTIAZEM ORAL 30 MG TAB PO SCH ×3 (09:29→21:39)
[2017-02-10] MEDS: NYSTATIN 100,000 UNIT/ML SUSP 500,000 UNIT/5 ML CUP PO SCH ×5 (09:29→21:28)
[2017-02-10] MEDS: GENTAMICIN 0.3% OPHTH OINT 3.5 GM TUBE LEFT EYE SCH ×2 (09:29→21:39)
[2017-02-10] MEDS: predniSONE 20 MG TAB PO SCH (09:29)
--- NOTE | 2017-02-10 10:23 | P.PN ---
Subjective Principal diagnosis: Patient sitting in chair by bedside in the room. Patient states some improvement. Plan for barium swallow today Objective - Vital Signs Vital signs: Vital Signs Temp 97 F L 02/10/17 08:15 Pulse 95 02/10/17 08:15 Resp 16 02/10/17 08:15 BP 117/56 02/10/17 08:15 Pulse Ox 93 L 02/10/17 08:15 Intake & Output 02/09/17 02/10/17 02/10/17 18:59 06:59 18:59 Intake Total 1575 630 Output Total 1200 200 Balance 375 430 Weight 91 kg Intake: IV 560 Sodium Chloride 0.9% 1, 560 000 ml @ 80 mls/hr IV . [id number] WILFRID Rx#:[id number] Intake, IV Titration 250 Amount Vancomycin 1,750 mg In 250 Sodium Chloride 0.9% 250 ml @ 125 mls/hr IVPB 0000 ,1200 WILFRID Rx#:[id number] Tube Feeding 565 630 Other 200 Output: Urine 1200 200 Other: Voiding Method Urinal Urinal # Voids 1 - Constitutional General appearance: Present: mild distress - EENT Eyes: Present: PERRLA ENT: Present: hard of hearing Ears: bilateral: normal - Neck Neck: Present: normal ROM - Respiratory Respiratory: bilateral: diminished - Cardiovascular Rhythm: irregularly irregular - Peripheral edema foot Peripheral Edema: bilateral: 2+ - Gastrointestinal General gastrointestinal: Present: soft - Integumentary Integumentary: Present: normal - Neurologic Neurologic Comment(s): Left-sided weakness secondary to Fletcher's palsy - Musculoskeletal Musculoskeletal: Present: generalized weakness - Psychiatric Psychiatric: Present: A&O x's 3, appropriate affect, intact judgment & insight - Labs CBC & Chem 7: 02/10/17 05:39 02/10/17 05:39 Labs: Abnormal Lab Results - Last 24 Hours (Table) 02/09/17 02/09/17 02/09/17 Range/Units 11:42 16:58 20:22 WBC (3.8-10.6) k/uL RBC (4.30-5.90) m/uL Hgb (13.0-17.5) gm/dL Hct (39.0-53.0) % MCHC (31.0-37.0) g/dL RDW (11.5-15.5) % Neutrophils # (Manual) (1.3-7.7) k/uL Lymphocytes # (Manual) (1.0-4.8) k/uL Monocytes # (Manual) (0-1.0) k/uL BUN (9-20) mg/dL Glucose (74-99) mg/dL POC Glucose (mg/dL) 139 H 163 H 152 H (75-99) mg/dL Total Protein (6.3-8.2) g/dL Albumin (3.5-5.0) g/dL 02/10/17 02/10/17 02/10/17 Range/Units 05:39 05:39 05:44 WBC 16.2 H (3.8-10.6) k/uL RBC 3.68 L (4.30-5.90) m/uL Hgb 10.2 L (13.0-17.5) gm/dL Hct 34.9 L (39.0-53.0) % MCHC 29.3 L (31.0-37.0) g/dL RDW 23.9 H (11.5-15.5) % Neutrophils # (Manual) 8.59 H (1.3-7.7) k/uL Lymphocytes # (Manual) 5.99 H (1.0-4.8) k/uL Monocytes # (Manual) 1.62 H (0-1.0) k/uL BUN 27 H (9-20) mg/dL Glucose 129 H (74-99) mg/dL POC Glucose (mg/dL) 133 H (75-99) mg/dL Total Protein 4.4 L (6.3-8.2) g/dL Albumin 2.5 L (3.5-5.0) g/dL Microbiology - Last 24 Hours (Table) 02/03/17 11:26 Blood Culture - Final Blood No Growth after 144 hours 02/05/17 00:45 Gram Stain - Final Sputum Sputum Culture - Final Enterobacter cloacae Methicillin resist S. aureus Assessment and Plan Plan: Assessment Acute hypoxic respiratory failure secondary to pneumonia acute on chronic COPD atrial flutter fib flutter Acute on chronic COPD altered mental status secondary to hypotensive event Hypothyroidism Chronic lymphocytic leukemia Gastric feeding tube in place secondary to dysphagia Fletcher's palsy Herpes zoster Acute on chronic sinusitis Plan Continue consultation with the cardiology oncology neurology infectious disease and ENT Plan for barium swallow today follow-up from feeding tube placement
--- NOTE | 2017-02-10 11:20 | CONS ---
CONSULTATION DATE OF SERVICE: 02/09/2017 REASON FOR CONSULTATION: A positive sputum culture with Enterobacter and MRSA. HISTORY OF PRESENT ILLNESS: The patient is a 76-year-old, male, who was brought into the ER at [facility] 01/14/2017 with the chief complaints of increasing shortness of breath, chest tightness and wheezing. Patient did have history of chronic lymphocytic lymphoma who was recently admitted at the [facility] where the patient was noticed to have extension of his into the posterior oropharyngeal area which has affected his swallowing, subsequently the patient did get a PEG tube for feeding. At that time the patient also treated for an episode of pneumonia, not sure exactly which antibiotic he was on. On arrival to the ER at [facility], the patient did have a chest x- ray. The patient did show evidence of COPD and active pneumonia. He did have elevated white count of 24,000 but no fever. Patient was treated with bronchodilators and steroids and was started on Rocephin and azithromycin. Subsequently, the patient did have a CT angiogram done on 02/05, which was reported negative for any PE and also did not show any evidence of consolidation: In the mean time, the patient also had sputum culture obtained which is now showing a multi-drug resistant Enterobacter in addition to the MRSA with the vancomycin being added. I was asked to see the patient for further recommendation regarding antibiotic therapy during this hospital stay. The patient remains to be afebrile and his white count started at 24,000 has come down to 13,000 as of yesterday. The patient did mention that overall bleeding has improved. The patient denies significant chest pain. He did have some cough but mention he is bring up less sputum compared to when he was admitted to the hospital. The patient denies having any abdominal pain and no diarrhea. Has been tolerating his tube feeds. No nausea or vomiting has been noticed. REVIEW OF SYSTEMS: CONSTITUTIONAL: Positive for weakness but no fever. EYES: No complaint. ENT: No complaint. Respiratory: As per HPI. CARDIOVASCULAR: As per HPI. GENITOURINARY: No complaint. GASTROINTESTINAL: No complaint. MUSCULOSKELETAL: No complaint. INTEGUMENT: No complaint. PSYCHOLOGICAL: No complaint. ENDOCRINE: No complaint. NEUROLOGIC: No complaint. PAST MEDICAL HISTORY: Significant for a chronic lymphocytic leukemia, hypothyroidism, prostate disorder, pneumonia, paroxysmal atrial fibrillation. COPD. PAST SURGICAL HISTORY: PEG tube placement recently and previous history of thyroid surgery. SOCIAL HISTORY: Patient does smoke for a short time, but quit back in the 1960s, no drinking or any drug use. FAMILY HISTORY: Father with history of dementia. ALLERGIES: AMOXICILLIN and RITUXIMAB. MEDICATIONS: The patient is currently on DuoNeb, Pulmicort, Cardizem, Humalog, Synthroid, Ativan, Theragran, Narcan, Zofran, Protonix, prednisone and vancomycin. PHYSICAL EXAMINATION: Blood pressure is 121/60 with a pulse of 93, temperature 97.1. He is 96% on 4 L nasal cannula. General description is an elderly male up in the chair, in no distress. No tachypnea or accessory muscle for respiration use. HEENT examination shows pallor,. no scleral icterus. Oral mucosa is dry. NECK: Trachea central. No thyromegaly. LUNGS: Unlabored breathing. Decreased dense breath sounds. No significant wheeze. HEART: S1, S2. Regular rate and rhythm. ABDOMEN: Soft, no tenderness. No guarding. No rigidity. EXTREMITIES: No edema of the feet. SKIN EXAMINATION: No rash or mass palpable. NEUROLOGICAL: Patient awake, alert, oriented, mood and affect normal. LAB: Hemoglobin is 9.8, white count of 14.3 of yesterday. Admission white count was 28.4. BUN of 22 with a creatinine 0.66. Electrolyte has been normal, liver enzymes are normal. Blood culture has been negative. Sputum with Enterobacter, multidrug resistant and MRSA. DIAGNOSTIC IMPRESSION: Patient with a positive sputum cultures with Enterobacter cloacae, multidrug resistant and methicillin-resistant Staphylococcus aureus, more likely representing a colonization/contamination as the patient apparently improved without getting treatment for these two pathogens in a patient with no fever that has been admitted to the hospital. PLAN: 1. Antibiotic can be safely discontinued as the two organisms represent more likely colonization/contamination. 2. on admission. Thank you for this consultation. Will follow this patient along with you. MMODL / IJN: [id number] /
[2017-02-10 12:01] LABS: Glucose,Whole Blood 133 mg/dL (75-99)
--- NOTE | 2017-02-10 12:56 | FL ---
EXAMINATION TYPE: FL barium swallow w video DATE OF EXAM: 02/10/2017 COMPARISON: NONE HISTORY: Abnormal bedside exam TECHNIQUE: Fluoroscopy. FINDINGS: Fluoroscopic guidance was provided for the procedure performed in conjunction with the [facility] pathology department. Please see complete report forthcoming from the Speech Pathology departmen t. Various consistencies from thin liquid to solids were administered. Fluoroscopy time 1 minute 6 seconds Number of images: 0. No aspiration was observed. Penetration was present. There was non propulsion of the contrast into th e proximal esophagus. Drainage into the vallecula was evident IMPRESSION: 1. Penetration. No propulsion into the proximal esophagus was evident. 2. See speech pathology report
[2017-02-10] MEDS: ONDANSETRON 4 MG/2 ML VIAL IVP PRN (13:01)
--- NOTE | 2017-02-10 13:58 | P.PN ---
Subjective Principal diagnosis: Acute exacerbation of COPD, acute hypoxic respiratory failure 76-year-old male patient presented to the emergency department with increased shortness of breath, cough, chest tightness and wheezing. The patient was treated recently at [facility] for pneumonia. He was also given diagnosis of Fletcher's palsy. He was also found to have difficulty in swallowing and he was given a PEG tube for enteral feeding and nutritional support. His chest x-rays have any acute pulmonary infiltrates. The patient is bronchospastic and wheezy and he was started on a combination of bronchodilators and systemic steroids will be also added. No significant sputum production. No clear-cut history of aspiration of food material. This patient is known to have COPD. He is also known to have chronic lymphocytic leukemia who has been followed up by Dr Bradshaw on an outpatient basis. The patient lives in [place] and he goes to [facility]. The patient's CLL has been essentially stable. The patient did not have any indication for therapy and his been monitored clinically. He also has COPD. He has been seen by a jewelry internship in [place], and he has undergone a pulmonary function test and he was told that his lung capacities in order of 50% . I'm assuming his FEV1 is in the range of 50%. The patient was given Symbicort 160/4.5, 2 puffs twice daily regarding maintenance therapy for COPD. Denies having any recurrent exacerbations. Denies having any major pulmonary complications from the COPD. Patient was admitted To [facility] back in December 2016. At that time he was having difficulties with swallowing and soreness in his throat and tongue and change in his voice along with some difficulties in swallowing and speech. He was also having persistent fever and he developed a body rash which probably at a later stage attributed to be related to a viral infection/questionable chickenpox an immune compromised patient knowing that the skin lesion that was taken do not to be positive for VZV virus. The patient also has chronic atrial fibrillation and he was treated in the past for A. fib/RVR. He is having the same issue for now is currently on Cardizem drip at 5 mg an hour. Echocardiogram showed mild concentric hypertrophy. He has an ejection fraction of 55%. Mild MR and mild TR. No vegetations. On I'm seeing this patient in follow-up. I was able to meet and get more information from his . As mentioned, the patient has complication of chronic lymphocytic leukemia. 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 The patient was infected with varicella virus, possibly a chickenpox event, presenting with diffuse rash and subsequently the patient developed a Fletcher's palsy which resulted in significant positive left face, hearing deficits in addition. The patient also had difficulty in swallowing. 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 Based on that the patient was given a PEG tube. He was treated for pneumonia. Subsequently was given systemic chemotherapy. I saw this patient yesterday in consultation and he was an acute COPD exacerbation. I gave him bronchodilators and systemic steroids. Today's more hypoxic and was placed on high flow oxygen at 4 L/m nasal cannula. A CT angios the chest needs to follow up to rule out any pneumonia/pulmonary embolism /any other abnormalities contributing to his hypoxemia and shortness of breath. MRI of the brain was done that showed no acute abnormalities and there is evidence of pansinusitis. The patient is currently on IV Rocephin 1 g every 24 hours and Zithromax oral. In terms of his atrial fibrillation, the patient is under better control and currently is on oral Cardizem 30 mg by mouth 3 times a day. He is on no anticoagulants for now. On 02/06/2017, I'm seeing this patient in follow-up. He is looking much better. Less short of breath. The high flow oxygen has been discontinued and the patient is currently on 4-6 L/m nasal cannula and his saturations around 96% . He is breathing much easier. No shortness of breath. Cough and congestion still present although less compared to yesterday. He underwent a CAT scan of the chest that shows COPD. No evidence of any pulmonary embolism. No evidence of an acute pneumonia atelectasis or effusions. Mediastinum was also clear. As such the patient is a improving. He is afebrile. His white cell count was gradually dropping is currently down to 17.4. He continues to receive enteral feeding for nutritional support. He is on Rocephin and Zithromax as empiric antibiotic coverage. He is on DuoNeb, Pulmicort Respules, Perforomist neb last treatment and IV Solu-Medrol. On 02/07/2017 the patient is stable. Is still on 5-6 L of oxygen nasal cannula. His COPD exacerbations gradually improving. CAT scan of the chest results were noted. He is still receiving PEG tube feeding for nutritional support. The is concerned that he may be aspirating while receiving the packed to feed and for that reason dye will be added to the enteral feeding/ tube feeds. The patient is still on broad-spectrum antibiotics. The patient is doing well. 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 Fletcher's palsy is gradually improving. He feels the ability to close the eye is improved. He may benefit from another swallow evaluation at the later stage. The sputum sample if was collected showed presumed staph aureus and Enterobacter. The patient is on a combination of Zithromax and Rocephin. I would suggest monitoring the cultures and make appropriate adjustments based on his final cultures and sensitivities. Note that the CAT scan of the chest does not show any significant pneumonia. On 02/08/2017 the patient is gradually improving. The oxygen flow has been cut down to 4 L of oxygen nasal cannula. This is his baseline. He is not aspirating. He is receiving enteral feeding for nutritional support. No fever or chills. Still awaiting the final sensitivities on the sputum analysis. The patient had Enterobacter and presumed staph aureus. Enterobacter is a ESBL producing organism. Despite this, the patient does not show any signs of septicemia. She he has been maintained on a combination of Rocephin and Zithromax which is not ideal for this of infection of the systems out to be a true infection. For all this reasons, I'm going to consult infectious disease. On 02/09/2017 the patient remains stable and he has no specific complaints. He is receiving enteral feeding for nutritional support. Placed and infectious disease consultation to see Dr. martinze regarding the Enterobacter /ESBL producing organism along with the presumed staph aureus. These may be colonization knowing that the patient was not treated for those and he recovered nicely. The patient is on 4 L of oxygen by nasal cannula. No aspiration. Swallow evaluation was done tomorrow. He will be taken off the IV Solu Medrol start on a prednisone burst taper. No other complaints otherwise. His emanating in the hallway. He is active. He is having significant hearing impairment and he still has manifestations of a Fletcher's palsy. On 02/10/2017, patient seems to be doing much better, continues to have intermittent episodes of productive cough, seen by infectious disease on consultation, and antibiotics are being addressed accordingly. Overall the patient has made a significant improvement over the last few days. Labs were reviewed continues to have leukocytosis WBC count of 16.2 hemoglobin is 10.2. His metabolic profile is normal. Last CT of the chest failed to show evidence of pneumonia, she'll negative for pulmonary embolism, and there was evidence of old a lumbar disc disease. Objective - Vital Signs Vital signs: Vital Signs Temp 97 F L 02/10/17 08:15 Pulse 88 02/10/17 12:00 Resp 16 02/10/17 11:15 BP 128/62 02/10/17 11:15 Pulse Ox 95 02/10/17 11:15 Intake & Output 02/09/17 02/10/17 02/10/17 18:59 06:59 18:59 Intake Total 1575 630 Output Total 1200 200 Balance 375 430 Weight 91 kg Intake: IV 560 Sodium Chloride 0.9% 1, 560 000 ml @ 80 mls/hr IV . [id number] WILFRID Rx#:[id number] Intake, IV Titration 250 Amount Vancomycin 1,750 mg In 250 Sodium Chloride 0.9% 250 ml @ 125 mls/hr IVPB 0000 ,1200 WILFRID Rx#:[id number] Tube Feeding 565 630 Other 200 Output: Urine 1200 200 Other: Voiding Method Urinal Urinal Urinal # Voids 1 - Exam Physical Exam revealed a 76-year-old in no distress. HEENT:[Neck is supple.] [No neck masses.] [No thyromegaly.] [No JVD.] Evidence of facial asymmetry noted related to Fletcher's pulses. Chest: [Diminished breath sounds bilaterally with diffuse rhonchi and wheezes on forced expiratory maneuver..] Cardiac Exam: [Normal S1 and S2, no S3 gallop, no murmur.] Abdomen: [Soft, nontender, no megaly, no rebound, no guarding, normal bowel sounds.] Extremities: [No clubbing, no edema, no cyanosis.] Neurological Exam: Evidence of facial drooping and asymmetry, this is related to Fletcher's palsy otherwise no focal neurologic deficit noted - Labs CBC & Chem 7: 02/10/17 05:39 02/10/17 05:39 Labs: Abnormal Lab Results - Last 24 Hours (Table) 02/09/17 02/09/17 02/10/17 Range/Units 16:58 20:22 05:39 WBC 16.2 H (3.8-10.6) k/uL RBC 3.68 L (4.30-5.90) m/uL Hgb 10.2 L (13.0-17.5) gm/dL Hct 34.9 L (39.0-53.0) % MCHC 29.3 L (31.0-37.0) g/dL RDW 23.9 H (11.5-15.5) % Neutrophils # (Manual) 8.59 H (1.3-7.7) k/uL Lymphocytes # (Manual) 5.99 H (1.0-4.8) k/uL Monocytes # (Manual) 1.62 H (0-1.0) k/uL BUN (9-20) mg/dL Glucose (74-99) mg/dL POC Glucose (mg/dL) 163 H 152 H (75-99) mg/dL Total Protein (6.3-8.2) g/dL Albumin (3.5-5.0) g/dL 02/10/17 02/10/17 02/10/17 Range/Units 05:39 05:44 11:48 WBC (3.8-10.6) k/uL RBC (4.30-5.90) m/uL Hgb (13.0-17.5) gm/dL Hct (39.0-53.0) % MCHC (31.0-37.0) g/dL RDW (11.5-15.5) % Neutrophils # (Manual) (1.3-7.7) k/uL Lymphocytes # (Manual) (1.0-4.8) k/uL Monocytes # (Manual) (0-1.0) k/uL BUN 27 H (9-20) mg/dL Glucose 129 H (74-99) mg/dL POC Glucose (mg/dL) 133 H 133 H (75-99) mg/dL Total Protein 4.4 L (6.3-8.2) g/dL Albumin 2.5 L (3.5-5.0) g/dL Microbiology - Last 24 Hours (Table) 02/03/17 11:26 Blood Culture - Final Blood No Growth after 144 hours 02/05/17 00:45 Gram Stain - Final Sputum Sputum Culture - Final Enterobacter cloacae Methicillin resist S. aureus Assessment and Plan Plan: 1 acute COPD exacerbation with secondary shortness of breath, improving and the CAT scan of the chest is been negative. The sputum is growing Enterobacter and presumed staph aureus. Based on the fact that the CAT scan is negative and the patient is improving we'll continue Rocephin and Zithromax. Until antibiotics are addressed by infectious disease on the case. Recommendation was to discontinue all antibiotics, and this was felt to be a colonization. On 02/09/2017 we are still awaiting an infectious disease consultation. I think the Enterobacter and the staph in his sputum colonizers. The patient is currently not taking any antibiotics. Vancomycin was added by the hospitalist. Note that his chest x-ray did not show any acute pneumonia and the CAT scan of the chest confirmed the finding. 2 acute hypoxic respiratory failure, improving 3 COPD per history with a baseline FEV1 of estimated to be at 50% of predicted maintained on Symbicort on outpatient basis 4 chronic leukocytic leukemia, with secondary hypogammaglobulinemia. 5 paroxysmal A. fib fibrillation with rapid ventricular response and currently patient IV Cardizem for rate control 6 hypothyroidism 7 recent viral skin rash, possibly related to chickenpox nontender the skin lesion was positive for VZV by PCR. 8 Fletcher's palsy 9 difficulty with swallowing secondary to CLL involving the posterior oropharynx and the laryngeal odell based on an ENT evaluation was done [facility]. The patient currently is receiving enteral feeding for nutritional support 10 enteral feeding for nutritional support through a PEG tube. Rule out possible aspiration 11 impaired hearing post viral Recommendation: Continue present treatment plan, continue bronchodilators, off antibiotics, will review the results of the swallow evaluation. Today. Time with Patient: Less than 30
[2017-02-10] MEDS: MULTIVITAMINS, THERA 1 EACH TAB PO SCH (16:05)
[2017-02-10 16:31] LABS: Glucose,Whole Blood 137 mg/dL (75-99)
[2017-02-10 21:11] LABS: Glucose,Whole Blood 120 mg/dL (75-99)
[2017-02-10] MEDS: FLUCONAZOLE ORAL SUSP 1,400 MG/35 ML BOTTLE PEG/G-TUBE SCH (21:39)
[2017-02-10] MEDS: LORazepam 2 MG/ML SYRINGE IV PRN (22:55)
[2017-02-11 06:03] LABS: Glucose,Whole Blood 121 mg/dL (75-99)
--- NOTE | 2017-02-11 06:08 | PN ---
PROGRESS NOTE DATE OF SERVICE: 02/10/2017 REASON FOR FOLLOWUP: 1. Positive sputum culture likely colonization. 2. Oral thrush. INTERVAL HISTORY: The patient is afebrile. He is breathing comfortably. Patient denies chest pain, shortness of breath. Minimal cough that has decreased in intensity and has now. No abdominal pain. No diarrhea. PHYSICAL EXAMINATION: Blood pressure 127/59 with a pulse of 90, temperature 97.3. He is 95% on 4 L nasal cannula. General description is an elderly male, up in a chair, in no distress. HEENT EXAMINATION: Oral thrush. NECK: Trachea central. No thyromegaly. LUNGS: Unlabored breathing. Decreased breath sounds. No wheeze. HEART: S1, S2. Regular rate and rhythm. ABDOMEN: Soft, no tenderness. LABS: Hemoglobin 10.2, white count 16.2, BUN of 27, creatinine 0.70. DIAGNOSTIC IMPRESSION AND PLAN: 1. Patient with a positive sputum culture with Enterobacter and methicillin-resistant Staphylococcus aureus more likely representing a colonization as the patient seemed to have an overall clinical improvement treatment for the same. No need for any systemic antibiotic. 2. Patient with oral thrush more likely responsible for his elevated white count. The patient as he is unable to use swish and swallow will give him Diflucan through the PEG tube. present at bedside. Questions were answered. MMODL / IJN: [id number] /
[2017-02-11] MEDS: INSULIN LISPRO (humaLOG) 300 UNIT/3 ML VIAL SQ SCH ×4 (06:49→21:32)
[2017-02-11] MEDS: PANTOPRAZOLE 40 MG TABLET PO SCH (06:49)
[2017-02-11] MEDS: LEVOTHYROXINE 125 MCG TAB PO SCH (06:49)
[2017-02-11] MEDS: SODIUM CHLORIDE 0.9% 1,000 ML IV SCH ×2 (06:50→12:44)
--- NOTE | 2017-02-11 07:56 | EEG ---
ELECTROENCEPHALOGRAM REPORT DATE OF SERVICE: 02/06/2017 REASON FOR TESTING: Altered mental status. DESCRIPTION OF THE PROCEDURE: This EEG was performed using a 21 channel digital electroencephalograph, following international 10 - 20 system. DESCRIPTION OF THE RECORDING: From the beginning of the tracing, and with patient's eyes closed, the background rhythm was mostly consisting of 8 - 9 hertz alpha frequency in the posterior occipital leads. No obvious asymmetry is seen. Photic stimulation was performed with a minimal driving response seen. No pathological waves were elicited. Hyperventilation was not performed. The patient does reach stage II of sleep during the tracing and occasional sleep spindles are seen. Occasional movement artifacts are seen. No epileptiform discharges were seen. His EKG lead showed a regular rate and rhythm. INTERPRETATION: This awake EEG can be considered within normal limits. There was no asymmetry seen. No epileptiform discharges were noticed. The absence of epileptiform discharges does not rule out the diagnosis of epilepsy, therefore clinical correlation is recommended. MMNISHAL / IJN: [id number] /
[2017-02-11] MEDS: NYSTATIN 100,000 UNIT/ML SUSP 500,000 UNIT/5 ML CUP PO SCH ×4 (08:31→21:35)
[2017-02-11] MEDS: GENTAMICIN 0.3% OPHTH OINT 3.5 GM TUBE LEFT EYE SCH ×2 (08:33→21:38)
[2017-02-11] MEDS: predniSONE 20 MG TAB PO SCH (08:33)
[2017-02-11] MEDS: MULTIVITAMINS, THERA 1 EACH TAB PO SCH (08:33)
[2017-02-11] MEDS: DILTIAZEM ORAL 30 MG TAB PO SCH ×3 (08:33→21:38)
[2017-02-11] MEDS: BUDESONIDE 0.5 MG/2 ML NEBU INHALATION SCH ×3 (08:44→20:01)
[2017-02-11] MEDS: FORMOTEROL FUMARATE 20 MCG/2 ML NEBU INHALATION SCH ×3 (08:44→20:01)
[2017-02-11] MEDS: IPRATROPIUM-ALBUTEROL 3 ML NEB INHALATION SCH ×4 (08:44→20:01)
--- NOTE | 2017-02-11 11:01 | P.PN ---
Subjective Principal diagnosis: Patient able to ambulate to bathroom for shower. at bedside. She was asking questions regarding coordination of care with ENT oncology and cardiology. Noted increase in edema to feet and ankles Objective - Vital Signs Vital signs: Vital Signs Temp 96.5 F L 02/11/17 04:00 Pulse 108 H 02/11/17 08:57 Resp 18 02/11/17 07:51 BP 123/59 02/11/17 04:00 Pulse Ox 96 02/11/17 04:00 Intake & Output 02/10/17 02/11/17 02/11/17 18:59 06:59 18:59 Intake Total 360 540 180 Output Total 375 Balance 360 165 180 Weight 91.2 kg 91.2 kg Intake: Oral 0 Tube Feeding 360 540 180 Output: Urine 375 Other: Voiding Method Urinal Urinal Urinal - Constitutional General appearance: Present: mild distress - EENT EENT Comment(s): Left-sided facial droop secondary to Fletcher's Eyes: Present: PERRLA ENT: Present: hard of hearing Ears: bilateral: normal - Neck Neck: Present: normal ROM - Respiratory Respiratory: bilateral: diminished - Cardiovascular Rhythm: irregularly irregular - Peripheral edema foot Peripheral Edema: bilateral: 3+ - Gastrointestinal Gastrointestinal Comment(s): Gastric tube in place General gastrointestinal: Present: soft - Integumentary Integumentary: Present: normal - Neurologic Neurologic Comment(s): Left-sided facial droop and secondary to Fletcher's palsy - Musculoskeletal Musculoskeletal Comment(s): Slow gait able to ambulate with walker Musculoskeletal: Present: generalized weakness - Psychiatric Psychiatric: Present: A&O x's 3, appropriate affect, intact judgment & insight - Labs CBC & Chem 7: 02/10/17 05:39 02/10/17 05:39 Labs: Abnormal Lab Results - Last 24 Hours (Table) 02/10/17 02/10/17 02/10/17 Range/Units 11:48 16:29 21:09 POC Glucose (mg/dL) 133 H 137 H 120 H (75-99) mg/dL 02/11/17 Range/Units 06:01 POC Glucose (mg/dL) 121 H (75-99) mg/dL Assessment and Plan Plan: Assessment Acute hypoxic respiratory failure secondary to pneumonia Oral thrush Atrial flutter Acute on chronic COPD Hypothyroidism Chronic lymphocytic leukemia Gastric feeding tube in place Dysphasia motility problems Altered mental status secondary to hypotensive event Fletcher's palsy Herpes zoster Acute on chronic sinusitis Plan Discharge plan coordinated with oncology ENT and cardiology
--- NOTE | 2017-02-11 11:26 | P.PN ---
Subjective Principal diagnosis: Acute exacerbation of COPD, acute hypoxic respiratory failure 76-year-old male patient presented to the emergency department with increased shortness of breath, cough, chest tightness and wheezing. The patient was treated recently at [facility] for pneumonia. He was also given diagnosis of Fletcher's palsy. He was also found to have difficulty in swallowing and he was given a PEG tube for enteral feeding and nutritional support. His chest x-rays have any acute pulmonary infiltrates. The patient is bronchospastic and wheezy and he was started on a combination of bronchodilators and systemic steroids will be also added. No significant sputum production. No clear-cut history of aspiration of food material. This patient is known to have COPD. He is also known to have chronic lymphocytic leukemia who has been followed up by Dr Bradshaw on an outpatient basis. The patient lives in [place] and he goes to [facility]. The patient's CLL has been essentially stable. The patient did not have any indication for therapy and his been monitored clinically. He also has COPD. He has been seen by a crystal growing technician in [place], and he has undergone a pulmonary function test and he was told that his lung capacities in order of 50% . I'm assuming his FEV1 is in the range of 50%. The patient was given Symbicort 160/4.5, 2 puffs twice daily regarding maintenance therapy for COPD. Denies having any recurrent exacerbations. Denies having any major pulmonary complications from the COPD. Patient was admitted To [facility] back in December 2016. At that time he was having difficulties with swallowing and soreness in his throat and tongue and change in his voice along with some difficulties in swallowing and speech. He was also having persistent fever and he developed a body rash which probably at a later stage attributed to be related to a viral infection/questionable chickenpox an immune compromised patient knowing that the skin lesion that was taken do not to be positive for VZV virus. The patient also has chronic atrial fibrillation and he was treated in the past for A. fib/RVR. He is having the same issue for now is currently on Cardizem drip at 5 mg an hour. Echocardiogram showed mild concentric hypertrophy. He has an ejection fraction of 55%. Mild MR and mild TR. No vegetations. On I'm seeing this patient in follow-up. I was able to meet and get more information from his . As mentioned, the patient has complication of chronic lymphocytic leukemia. 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 The patient was infected with varicella virus, possibly a chickenpox event, presenting with diffuse rash and subsequently the patient developed a Fletcher's palsy which resulted in significant positive left face, hearing deficits in addition. The patient also had difficulty in swallowing. 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 Based on that the patient was given a PEG tube. He was treated for pneumonia. Subsequently was given systemic chemotherapy. I saw this patient yesterday in consultation and he was an acute COPD exacerbation. I gave him bronchodilators and systemic steroids. Today's more hypoxic and was placed on high flow oxygen at 4 L/m nasal cannula. A CT angios the chest needs to follow up to rule out any pneumonia/pulmonary embolism /any other abnormalities contributing to his hypoxemia and shortness of breath. MRI of the brain was done that showed no acute abnormalities and there is evidence of pansinusitis. The patient is currently on IV Rocephin 1 g every 24 hours and Zithromax oral. In terms of his atrial fibrillation, the patient is under better control and currently is on oral Cardizem 30 mg by mouth 3 times a day. He is on no anticoagulants for now. On 02/06/2017, I'm seeing this patient in follow-up. He is looking much better. Less short of breath. The high flow oxygen has been discontinued and the patient is currently on 4-6 L/m nasal cannula and his saturations around 96% . He is breathing much easier. No shortness of breath. Cough and congestion still present although less compared to yesterday. He underwent a CAT scan of the chest that shows COPD. No evidence of any pulmonary embolism. No evidence of an acute pneumonia atelectasis or effusions. Mediastinum was also clear. As such the patient is a improving. He is afebrile. His white cell count was gradually dropping is currently down to 17.4. He continues to receive enteral feeding for nutritional support. He is on Rocephin and Zithromax as empiric antibiotic coverage. He is on DuoNeb, Pulmicort Respules, Perforomist neb last treatment and IV Solu-Medrol. On 02/07/2017 the patient is stable. Is still on 5-6 L of oxygen nasal cannula. His COPD exacerbations gradually improving. CAT scan of the chest results were noted. He is still receiving PEG tube feeding for nutritional support. The is concerned that he may be aspirating while receiving the packed to feed and for that reason dye will be added to the enteral feeding/ tube feeds. The patient is still on broad-spectrum antibiotics. The patient is doing well. 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 Fletcher's palsy is gradually improving. He feels the ability to close the eye is improved. He may benefit from another swallow evaluation at the later stage. The sputum sample if was collected showed presumed staph aureus and Enterobacter. The patient is on a combination of Zithromax and Rocephin. I would suggest monitoring the cultures and make appropriate adjustments based on his final cultures and sensitivities. Note that the CAT scan of the chest does not show any significant pneumonia. On 02/08/2017 the patient is gradually improving. The oxygen flow has been cut down to 4 L of oxygen nasal cannula. This is his baseline. He is not aspirating. He is receiving enteral feeding for nutritional support. No fever or chills. Still awaiting the final sensitivities on the sputum analysis. The patient had Enterobacter and presumed staph aureus. Enterobacter is a ESBL producing organism. Despite this, the patient does not show any signs of septicemia. She he has been maintained on a combination of Rocephin and Zithromax which is not ideal for this of infection of the systems out to be a true infection. For all this reasons, I'm going to consult infectious disease. On 02/09/2017 the patient remains stable and he has no specific complaints. He is receiving enteral feeding for nutritional support. Placed and infectious disease consultation to see Dr. martinez regarding the Enterobacter /ESBL producing organism along with the presumed staph aureus. These may be colonization knowing that the patient was not treated for those and he recovered nicely. The patient is on 4 L of oxygen by nasal cannula. No aspiration. Swallow evaluation was done tomorrow. He will be taken off the IV Solu Medrol start on a prednisone burst taper. No other complaints otherwise. His emanating in the hallway. He is active. He is having significant hearing impairment and he still has manifestations of a Fletcher's palsy. On 02/10/2017, patient seems to be doing much better, continues to have intermittent episodes of productive cough, seen by infectious disease on consultation, and antibiotics are being addressed accordingly. Overall the patient has made a significant improvement over the last few days. Labs were reviewed continues to have leukocytosis WBC count of 16.2 hemoglobin is 10.2. His metabolic profile is normal. Last CT of the chest failed to show evidence of pneumonia, she'll negative for pulmonary embolism, and there was evidence of old a lumbar disc disease. On 02/11/2017, patient continues to steadily improve. However his swallow evaluation yesterday clearly showed that the patient has poor propulsion of food into the distal esophagus. Hence I would suggest at this point no feedings whatsoever, continue to use the PEG tube. Patient's pulmonary status seems to be doing better, less cough and less wheezing less shortness of breath. Patient remains on bronchodilators. And he remains on prednisone at 40 mg by mouth daily. Patient is also on Mycostatin and fluconazole for oral thrush. Objective - Vital Signs Vital signs: Vital Signs Temp 96.9 F L 02/11/17 08:00 Pulse 90 02/11/17 11:00 Resp 16 02/11/17 11:00 BP 131/60 02/11/17 08:00 Pulse Ox 96 02/11/17 08:00 Intake & Output 02/10/17 02/11/17 02/11/17 18:59 06:59 18:59 Intake Total 360 540 360 Output Total 375 Balance 360 165 360 Weight 91.2 kg 91.2 kg Intake: Oral 0 Tube Feeding 360 540 360 Output: Urine 375 Other: Voiding Method Urinal Urinal Urinal - Exam Physical Exam revealed a 76-year-old in no distress. Facial asymmetry was noted , drooping is noted on the right side. HEENT:[Neck is supple.] [No neck masses.] [No thyromegaly.] [No JVD.] Evidence of facial asymmetry noted related to Fletcher's palsy Chest: [Diminished breath sounds bilaterally with diffuse rhonchi and wheezes on forced expiratory maneuver..] Cardiac Exam: [Normal S1 and S2, no S3 gallop, no murmur.] Abdomen: [Soft, nontender, no megaly, no rebound, no guarding, normal bowel sounds.] Extremities: [No clubbing, no edema, no cyanosis.] Neurological Exam: Evidence of facial drooping and asymmetry, this is related to Fletcher's palsy otherwise no focal neurologic deficit noted - Labs CBC & Chem 7: 02/10/17 05:39 02/10/17 05:39 Labs: Abnormal Lab Results - Last 24 Hours (Table) 02/10/17 02/10/17 02/10/17 Range/Units 11:48 16:29 21:09 POC Glucose (mg/dL) 133 H 137 H 120 H (75-99) mg/dL 02/11/17 Range/Units 06:01 POC Glucose (mg/dL) 121 H (75-99) mg/dL Assessment and Plan Plan: 1 acute COPD exacerbation with secondary shortness of breath, improving and the CAT scan of the chest is been negative. The sputum is growing Enterobacter and presumed staph aureus. Based on the fact that the CAT scan is negative and the patient is improving we'll continue Rocephin and Zithromax. Until antibiotics are addressed by infectious disease on the case. Recommendation was to discontinue all antibiotics, and this was felt to be a colonization. 2 acute hypoxic respiratory failure, improving 3 COPD per history with a baseline FEV1 of estimated to be at 50% of predicted maintained on Symbicort on outpatient basis 4 chronic leukocytic leukemia, with secondary hypogammaglobulinemia. 5 paroxysmal A. fib fibrillation with rapid ventricular response and currently patient IV Cardizem for rate control 6 hypothyroidism 7 recent viral skin rash, possibly related to chickenpox nontender the skin lesion was positive for VZV by PCR. 8 Fletcher's palsy 9 difficulty with swallowing secondary to CLL involving the posterior oropharynx and the laryngeal odell based on an ENT evaluation was done [facility]. The patient currently is receiving enteral feeding for nutritional support. Considering the abnormal swallow evaluation, I would suggest that we'll continue enteral feeding via PEG tube. Patient is definitely high risk for aspiration. 10 enteral feeding for nutritional support through a PEG tube 11 impaired hearing post viral Recommendation: Continue present treatment plan, continue bronchodilators, off antibiotics, results of the swelling evaluation were reviewed, discussed the findings with his at bedside today. At this point I recommend complete reliance on the PEG tube for nutritional support. Time with Patient: Less than 30
[2017-02-11 11:52] LABS: Glucose,Whole Blood 113 mg/dL (75-99)
[2017-02-11] MEDS: ONDANSETRON 4 MG/2 ML VIAL IVP PRN (12:44)
[2017-02-11 16:33] LABS: Glucose,Whole Blood 129 mg/dL (75-99)
[2017-02-11] MEDS: FLUCONAZOLE ORAL SUSP 1,400 MG/35 ML BOTTLE PEG/G-TUBE SCH (17:57)
[2017-02-11 21:24] LABS: Glucose,Whole Blood 113 mg/dL (75-99)
[2017-02-12] MEDS: LORazepam 2 MG/ML SYRINGE IV PRN ×2 (00:16→22:02)
[2017-02-12 05:55] LABS: Glucose,Whole Blood 95 mg/dL (75-99)
[2017-02-12] MEDS: PANTOPRAZOLE 40 MG TABLET PO SCH (06:28)
[2017-02-12] MEDS: INSULIN LISPRO (humaLOG) 300 UNIT/3 ML VIAL SQ SCH ×4 (06:28→21:47)
[2017-02-12] MEDS: SODIUM CHLORIDE 0.9% 1,000 ML IV SCH ×2 (06:28→18:02)
[2017-02-12] MEDS: LEVOTHYROXINE 125 MCG TAB PO SCH (06:28)
[2017-02-12] MEDS: FORMOTEROL FUMARATE 20 MCG/2 ML NEBU INHALATION SCH ×2 (07:59→20:35)
[2017-02-12] MEDS: IPRATROPIUM-ALBUTEROL 3 ML NEB INHALATION SCH ×4 (07:59→20:35)
[2017-02-12] MEDS: BUDESONIDE 0.5 MG/2 ML NEBU INHALATION SCH ×2 (07:59→20:35)
[2017-02-12] MEDS: NYSTATIN 100,000 UNIT/ML SUSP 500,000 UNIT/5 ML CUP PO SCH ×4 (08:55→22:02)
[2017-02-12] MEDS: GENTAMICIN 0.3% OPHTH OINT 3.5 GM TUBE LEFT EYE SCH ×2 (08:55→22:05)
[2017-02-12] MEDS: predniSONE 20 MG TAB PO SCH (08:56)
[2017-02-12] MEDS: DILTIAZEM ORAL 30 MG TAB PO SCH ×3 (08:56→22:02)
--- NOTE | 2017-02-12 09:02 | PN ---
PROGRESS NOTE DATE OF SERVICE: 02/11/2017 REASON FOR FOLLOWUP: 1. Positive sputum culture, likely colonized. 2. Oral thrush. INTERVAL HISTORY: The patient is afebrile. Has been breathing comfortably. Denies significant chest pain. Minimal cough. No abdominal pain. No diarrhea. PHYSICAL EXAMINATION: Blood pressure is 109/58 with a pulse of 80, temperature 98.2. He is 94% on 3 L nasal cannula. General description is elderly male up in the chair, in no distress. RESPIRATORY SYSTEM: Unlabored breathing, clear to auscultation. HEART: S1, S2, regular rate and rhythm. ABDOMEN: Soft, no tenderness. LABS: No new labs have been obtained today. DIAGNOSTIC IMPRESSION AND PLAN: 1. Patient with a positive sputum culture with Enterobacter and methicillin-resistant Staphylococcus aureus likely a contamination. No needed treatment for the same. 2. Patient with oral thrush, continue with the Diflucan. Continue supportive care. MMODL / IJN: [id number] /
[2017-02-12] MEDS: ONDANSETRON 4 MG/2 ML VIAL IVP PRN ×2 (09:17→18:18)
--- NOTE | 2017-02-12 11:32 | P.PN ---
Subjective Principal diagnosis: Acute exacerbation of COPD, acute hypoxic respiratory failure 76-year-old male patient presented to the emergency department with increased shortness of breath, cough, chest tightness and wheezing. The patient was treated recently at [facility] for pneumonia. He was also given diagnosis of Fletcher's palsy. He was also found to have difficulty in swallowing and he was given a PEG tube for enteral feeding and nutritional support. His chest x-rays have any acute pulmonary infiltrates. The patient is bronchospastic and wheezy and he was started on a combination of bronchodilators and systemic steroids will be also added. No significant sputum production. No clear-cut history of aspiration of food material. This patient is known to have COPD. He is also known to have chronic lymphocytic leukemia who has been followed up by Dr Bradshaw on an outpatient basis. The patient lives in [place] and he goes to [facility]. The patient's CLL has been essentially stable. The patient did not have any indication for therapy and his been monitored clinically. He also has COPD. He has been seen by a lamp wirer in [place], and he has undergone a pulmonary function test and he was told that his lung capacities in order of 50% . I'm assuming his FEV1 is in the range of 50%. The patient was given Symbicort 160/4.5, 2 puffs twice daily regarding maintenance therapy for COPD. Denies having any recurrent exacerbations. Denies having any major pulmonary complications from the COPD. Patient was admitted To [facility] back in December 2016. At that time he was having difficulties with swallowing and soreness in his throat and tongue and change in his voice along with some difficulties in swallowing and speech. He was also having persistent fever and he developed a body rash which probably at a later stage attributed to be related to a viral infection/questionable chickenpox an immune compromised patient knowing that the skin lesion that was taken do not to be positive for VZV virus. The patient also has chronic atrial fibrillation and he was treated in the past for A. fib/RVR. He is having the same issue for now is currently on Cardizem drip at 5 mg an hour. Echocardiogram showed mild concentric hypertrophy. He has an ejection fraction of 55%. Mild MR and mild TR. No vegetations. On I'm seeing this patient in follow-up. I was able to meet and get more information from his . As mentioned, the patient has complication of chronic lymphocytic leukemia. 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 The patient was infected with varicella virus, possibly a chickenpox event, presenting with diffuse rash and subsequently the patient developed a Fletcher's palsy which resulted in significant positive left face, hearing deficits in addition. The patient also had difficulty in swallowing. Further ENT evaluation that was done at [facility] revealed that the patient had recurrent or extension of his CLL into his posterior oropharyngeal area which was affecting his swallow. Based on that the patient was given a PEG tube. He was treated for pneumonia. Subsequently was given systemic chemotherapy. I saw this patient yesterday in consultation and he was an acute COPD exacerbation. I gave him bronchodilators and systemic steroids. Today's more hypoxic and was placed on high flow oxygen at 4 L/m nasal cannula. A CT angios the chest needs to follow up to rule out any pneumonia/pulmonary embolism /any other abnormalities contributing to his hypoxemia and shortness of breath. MRI of the brain was done that showed no acute abnormalities and there is evidence of pansinusitis. The patient is currently on IV Rocephin 1 g every 24 hours and Zithromax oral. In terms of his atrial fibrillation, the patient is under better control and currently is on oral Cardizem 30 mg by mouth 3 times a day. He is on no anticoagulants for now. On 02/06/2017, I'm seeing this patient in follow-up. He is looking much better. Less short of breath. The high flow oxygen has been discontinued and the patient is currently on 4-6 L/m nasal cannula and his saturations around 96% . He is breathing much easier. No shortness of breath. Cough and congestion still present although less compared to yesterday. He underwent a CAT scan of the chest that shows COPD. No evidence of any pulmonary embolism. No evidence of an acute pneumonia atelectasis or effusions. Mediastinum was also clear. As such the patient is a improving. He is afebrile. His white cell count was gradually dropping is currently down to 17.4. He continues to receive enteral feeding for nutritional support. He is on Rocephin and Zithromax as empiric antibiotic coverage. He is on DuoNeb, Pulmicort Respules, Perforomist neb last treatment and IV Solu-Medrol. On 02/07/2017 the patient is stable. Is still on 5-6 L of oxygen nasal cannula. His COPD exacerbations gradually improving. CAT scan of the chest results were noted. He is still receiving PEG tube feeding for nutritional support. The is concerned that he may be aspirating while receiving the packed to feed and for that reason dye will be added to the enteral feeding/ tube feeds. The patient is still on broad-spectrum antibiotics. The patient is doing well. 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 Fletcher's palsy is gradually improving. He feels the ability to close the eye is improved. He may benefit from another swallow evaluation at the later stage. The sputum sample if was collected showed presumed staph aureus and Enterobacter. The patient is on a combination of Zithromax and Rocephin. I would suggest monitoring the cultures and make appropriate adjustments based on his final cultures and sensitivities. Note that the CAT scan of the chest does not show any significant pneumonia. On 02/08/2017 the patient is gradually improving. The oxygen flow has been cut down to 4 L of oxygen nasal cannula. This is his baseline. He is not aspirating. He is receiving enteral feeding for nutritional support. No fever or chills. Still awaiting the final sensitivities on the sputum analysis. The patient had Enterobacter and presumed staph aureus. Enterobacter is a ESBL producing organism. Despite this, the patient does not show any signs of septicemia. She he has been maintained on a combination of Rocephin and Zithromax which is not ideal for this of infection of the systems out to be a true infection. For all this reasons, I'm going to consult infectious disease. On 02/09/2017 the patient remains stable and he has no specific complaints. He is receiving enteral feeding for nutritional support. Placed and infectious disease consultation to see Dr. martinez regarding the Enterobacter /ESBL producing organism along with the presumed staph aureus. These may be colonization knowing that the patient was not treated for those and he recovered nicely. The patient is on 4 L of oxygen by nasal cannula. No aspiration. Swallow evaluation was done tomorrow. He will be taken off the IV Solu Medrol start on a prednisone burst taper. No other complaints otherwise. His emanating in the hallway. He is active. He is having significant hearing impairment and he still has manifestations of a Fletcher's palsy. On 02/10/2017, patient seems to be doing much better, continues to have intermittent episodes of productive cough, seen by infectious disease on consultation, and antibiotics are being addressed accordingly. Overall the patient has made a significant improvement over the last few days. Labs were reviewed continues to have leukocytosis WBC count of 16.2 hemoglobin is 10.2. His metabolic profile is normal. Last CT of the chest failed to show evidence of pneumonia, she'll negative for pulmonary embolism, and there was evidence of old a lumbar disc disease. On 02/11/2017, patient continues to steadily improve. However his swallow evaluation yesterday clearly showed that the patient has poor propulsion of food into the distal esophagus. Hence I would suggest at this point no feedings whatsoever, continue to use the PEG tube. Patient's pulmonary status seems to be doing better, less cough and less wheezing less shortness of breath. Patient remains on bronchodilators. And he remains on prednisone at 40 mg by mouth daily. Patient is also on Mycostatin and fluconazole for oral thrush. The patient was seen again today 02/12/2017 in follow-up on the selective care unit. He is currently resting comfortably in bed. He denies any worsening shortness of breath. He has some retained secretions that he is able to cough out. He did fail his swallow evaluation. He is maintaining good O2 saturations in the 90s on 4 L/m per nasal cannula. His only complaint today is that of ongoing nausea. He did receive Zofran. He is still getting tube feedings at 45 mls per hour which is his goal. He is having bowel movements. Objective - Vital Signs Vital signs: Vital Signs Temp 97.9 F 02/12/17 08:00 Pulse 108 H 02/12/17 08:25 Resp 18 02/12/17 08:00 BP 121/56 02/12/17 08:00 Pulse Ox 91 L 02/12/17 08:00 Intake & Output 02/11/17 02/12/17 02/12/17 18:59 06:59 18:59 Intake Total 540 1180 180 Output Total 1225 Balance 540 -45 180 Weight 91.2 kg 92.6 kg Intake: IV 640 Sodium Chloride 0.9% 1, 640 000 ml @ 80 mls/hr IV . [id number] [facility] Rx#:[id number] Tube Feeding 540 540 180 Output: Urine 1225 Other: Voiding Method Urinal Urinal Urinal # Voids 2 # Bowel Movements 2 - Exam GENERAL EXAM: Alert, fairly comfortable in no apparent distress. HEAD: Normocephalic. There is a left-sided facial droop secondary to Fletcher's palsy. EYES: Normal reaction of pupils, equal size. NOSE: Clear with pink turbinates. THROAT: No erythema or exudates. NECK: No masses, no JVD. CHEST: No chest wall deformity. LUNGS: Equal air entry with few scattered rhonchi. CVS: S1 and S2 normal with no audible murmurs, regular rhythm. ABDOMEN: No hepatosplenomegaly, normal bowel sounds, PEG tube exit site is clean and dry. Extremities: There is trace peripheral edema. No clubbing, no cyanosis. Peripheral pulses are intact. - Labs CBC & Chem 7: 02/10/17 05:39 02/10/17 05:39 Labs: Abnormal Lab Results - Last 24 Hours (Table) 02/10/17 02/11/17 02/11/17 Range/Units 05:39 11:51 16:31 POC Glucose (mg/dL) 113 H 129 H (75-99) mg/dL IgG 408.0 L (700.0-1600.0) mg/dL 02/11/17 Range/Units 21:23 POC Glucose (mg/dL) 113 H (75-99) mg/dL IgG (700.0-1600.0) mg/dL Assessment and Plan Plan: Assessment 1 acute COPD exacerbation with secondary shortness of breath, improving and the CAT scan of the chest is been negative. The sputum is growing Enterobacter and methicillin-resistant staph aureus. Clinically the patient is improving. He is currently down to 4 L of oxygen nasal cannula. 2 acute hypoxic respiratory failure, improving 3 COPD per history with a baseline FEV1 of estimated to be at 50% of predicted maintained on Symbicort on outpatient basis 4 chronic leukocytic leukemia, with secondary hypogammaglobulinemia. 5 paroxysmal A. fib fibrillation 6 hypothyroidism 7 recent viral skin rash, possibly related to chickenpox nontender the skin lesion was positive for VZV by PCR. 8 Fletcher's palsy 9 difficulty with swallowing secondary to CLL involving the posterior oropharynx and the laryngeal odell based on an ENT evaluation was done [facility]. The patient currently is receiving enteral feeding for nutritional support 10 enteral feeding for nutritional support through a PEG tube. 11 impaired hearing post viral Plan The patient was seen and evaluated by Dr. Baeza. We'll repeat a chest x-ray as patient is having ongoing issues with managing his secretions. We'll continue with his current medications. ID is on the case as well. He is working with physical therapy. We'll continue to follow.
--- NOTE | 2017-02-12 11:33 | P.PN ---
Subjective Patient lethargic this morning states he had a restless night. Continues with nausea. at bedside. We will attempt to coordinate care with oncology and ENT for continued treatment Objective - Vital Signs Vital signs: Vital Signs Temp 97.9 F 02/12/17 08:00 Pulse 108 H 02/12/17 08:25 Resp 18 02/12/17 08:00 BP 121/56 02/12/17 08:00 Pulse Ox 91 L 02/12/17 08:00 Intake & Output 02/11/17 02/12/17 02/12/17 18:59 06:59 18:59 Intake Total 540 1180 180 Output Total 1225 Balance 540 -45 180 Weight 91.2 kg 92.6 kg Intake: IV 640 Sodium Chloride 0.9% 1, 640 000 ml @ 80 mls/hr IV . [id number] [facility] Rx#:[id number] Tube Feeding 540 540 180 Output: Urine 1225 Other: Voiding Method Urinal Urinal Urinal # Voids 2 # Bowel Movements 2 - Constitutional General appearance: Present: mild distress, morbidly obese - EENT Eyes: Present: PERRLA Ears: bilateral: normal - Neck Neck: Present: normal ROM - Respiratory Respiratory: bilateral: CTA - Cardiovascular Rhythm: irregularly irregular - Peripheral edema leg Peripheral Edema: bilateral: 3+ - Gastrointestinal General gastrointestinal: Present: soft - Integumentary Integumentary: Present: normal - Neurologic Neurologic Comment(s): Aside facial droop - Musculoskeletal Musculoskeletal: Present: generalized weakness - Psychiatric Psychiatric: Present: A&O x's 3, appropriate affect, intact judgment & insight - Labs CBC & Chem 7: 02/10/17 05:39 02/10/17 05:39 Labs: Abnormal Lab Results - Last 24 Hours (Table) 02/10/17 02/11/17 02/11/17 Range/Units 05:39 11:51 16:31 POC Glucose (mg/dL) 113 H 129 H (75-99) mg/dL IgG 408.0 L (700.0-1600.0) mg/dL 02/11/17 Range/Units 21:23 POC Glucose (mg/dL) 113 H (75-99) mg/dL IgG (700.0-1600.0) mg/dL Assessment and Plan Plan: Assessment Acute hypoxic respiratory failure Dysphasia motility problems Pneumonia Thrush Atrial fibrillation flutter Acute on chronic COPD Hypothyroidism Chronic lymphocytic leukemia Gastric feeding tube in place Fletcher's palsy left-sided weakness Herpes zoster Acute on chronic sinusitis Altered mental status secondary to hypotensive event Plan Coordination of care with oncology and ENT Continue pulmonary and ID consultation
[2017-02-12 12:04] LABS: Glucose,Whole Blood 129 mg/dL (75-99)
[2017-02-12 12:17] LABS: ALT 40 U/L (21-72); AST 19 U/L (17-59); Alkaline Phosphatase 69 U/L (38-126); Anion Gap 3 mmol/L; Blood Urea Nitrogen 18 mg/dL (9-20); Calcium 7.6 mg/dL (8.4-10.2); Carbon Dioxide 30 mmol/L (22-30); Chloride 102 mmol/L (98-107); Glucose 122 mg/dL (74-99); Non-African American GFR(MDRD) >60 (>60 ml/min/1.73 sqM); Potassium 4.1 mmol/L (3.5-5.1); Sodium 135 mmol/L (137-145); Total Bilirubin 0.4 mg/dL (0.2-1.3); Total Protein 3.9 g/dL (6.3-8.2)
[2017-02-12 12:26] LABS: Anisocytosis Moderate; Aty Lym Flag Slight; CH 27.4; CHCM 29.3; HCT 34.5 % (39.0-53.0); HDW 2.91; HGB 10.4 gm/dL (13.0-17.5); Hypochromasia Marked; MCH 28.3 pg (25.0-35.0); MCHC 30.1 g/dL (31.0-37.0); Macrocytosis Slight; Mean Platelet Volume 7.6; RBC 3.66 m/uL (4.30-5.90); RDW 21.5 % (11.5-15.5)
[2017-02-12 13:09] LABS: Add Differential Manual Differential
[2017-02-12 13:11] LABS: Band Neutrophils % 1 %; Metamyelocytes % 1 %; Myelocytes % 1 %; Nucleated Red Blood Cells 0 /100 WBC (0-0); Total Cells Counted 200
[2017-02-12 13:12] LABS: Polychromasia Present
[2017-02-12] MEDS: METOCLOPRAMIDE 5 MG/ML 2 ML VIAL IVP PRN ×2 (13:12→22:03)
[2017-02-12 13:13] LABS: Ovalocytes Present
[2017-02-12 17:03] LABS: Glucose,Whole Blood 144 mg/dL (75-99)
[2017-02-12] MEDS: MULTIVITAMINS, THERA 1 EACH TAB PO SCH (18:03)
--- NOTE | 2017-02-12 21:18 | XR ---
EXAMINATION TYPE: XR abdomen 3V DATE OF EXAM: 02/12/2017 CLINICAL HISTORY: Bloating with pain TECHNIQUE: Twp supine abdomen/pelvic images and one upright view COMPARISON: None. FINDINGS: Pigtail catheter overlies the left upper quadrant in a predominantly parasagittal plane, wi th the peak coiled over the expected position of the gastric fundus. EKG leads are noted. Scattered g as is seen in non-distended small bowel loops. Gas and fecal material is seen in non-distended colon . There is no visceromegaly, pneumoperitoneum, or abnormal calcification appreciated. The osseous struc tures are intact. The visualized lung bases and pleural spaces are negative on the right, but positive for small pleura l effusion and partial airlessness of the left lung base. IMPRESSION: 1. NO ACUTE ABDOMINAL PELVIC RADIOGRAPHIC PROCESS. 2. SMALL LEFT PLEURAL EFFUSION WITH PARTIAL LEFT LOWER LOBE AIRLESSNESS.
[2017-02-12 21:22] LABS: Glucose,Whole Blood 88 mg/dL (75-99)
[2017-02-12] MEDS: FLUCONAZOLE ORAL SUSP 1,400 MG/35 ML BOTTLE PEG/G-TUBE SCH (22:02)
[2017-02-13] MEDS: LEVOTHYROXINE 125 MCG TAB PO SCH (06:24)
[2017-02-13] MEDS: BUDESONIDE 0.5 MG/2 ML NEBU INHALATION SCH ×2 (07:13→21:17)
[2017-02-13] MEDS: FORMOTEROL FUMARATE 20 MCG/2 ML NEBU INHALATION SCH ×2 (07:13→21:17)
[2017-02-13] MEDS: IPRATROPIUM-ALBUTEROL 3 ML NEB INHALATION SCH ×4 (07:13→21:18)
[2017-02-13 07:48] LABS: Glucose,Whole Blood 101 mg/dL (75-99)
--- NOTE | 2017-02-13 07:54 | XR ---
EXAMINATION TYPE: XR chest 1V portable DATE OF EXAM: 02/13/2017 CLINICAL HISTORY: Pneumonia and aspiration progress study. TECHNIQUE: Single AP portable upright view of the chest is obtained. COMPARISON: Chest x-ray from February 04, 2017. CTA chest from February 05, 2017. FINDINGS: Cardiac silhouette size is upper limits of normal. There is background of mild chronic emp hysematous change with mild central vascular congestion and interstitial edema noted bilaterally. The re is slightly more prominent focal opacity in both lung bases suggesting atelectasis and/or infiltra te. No large pleural effusion or pneumothorax is seen. Cardiac silhouette size is stable and within n ormal limits. Trachea is slightly more focally narrowed in the lower cervical spine, cannot exclude n ew subglottic stenosis. Clinical correlation advised. IMPRESSION: Background mild chronic emphysematous change redemonstrated. There is new mild central va scular congestion and bilateral interstitial edema with new slightly more prominent bibasilar atelect asis and/or infiltrate. Aspiration would be in differential. Clinical correlation for possible new ricardo bglottic stenosis related to acute viral process advised.
[2017-02-13] MEDS: INSULIN LISPRO (humaLOG) 300 UNIT/3 ML VIAL SQ SCH ×4 (08:36→21:09)
[2017-02-13] MEDS: predniSONE 20 MG TAB PO SCH (08:38)
[2017-02-13] MEDS: DILTIAZEM ORAL 30 MG TAB PO SCH ×3 (08:38→21:56)
[2017-02-13] MEDS: GENTAMICIN 0.3% OPHTH OINT 3.5 GM TUBE LEFT EYE SCH ×2 (08:38→20:27)
[2017-02-13] MEDS: MULTIVITAMINS, THERA 1 EACH TAB PO SCH (08:39)
[2017-02-13] MEDS: PANTOPRAZOLE 40 MG TABLET PO SCH (08:39)
[2017-02-13] MEDS: NYSTATIN 100,000 UNIT/ML SUSP 500,000 UNIT/5 ML CUP PO SCH ×4 (08:39→22:03)
[2017-02-13 09:10] LABS: Anisocytosis Moderate; Aty Lym Flag Marked; CH 27.5; CHCM 29.8; HCT 31.7 % (39.0-53.0); HDW 2.88; HGB 9.6 gm/dL (13.0-17.5); Hypochromasia Marked; MCH 28.2 pg (25.0-35.0); MCHC 30.3 g/dL (31.0-37.0); MCV 93.2 fL (80.0-100.0); Macrocytosis Slight; Mean Platelet Volume 7.9; RDW 21.2 % (11.5-15.5); WBC 12.6 k/uL (3.8-10.6); WBC (Perox) 12.79
--- NOTE | 2017-02-13 09:18 | PN ---
PROGRESS NOTE DATE OF SERVICE: 02/12/2017. REASON FOR FOLLOWUP: 1. Oral thrush. 2. Positive sputum cultures, likely colonized. INTERVAL HISTORY: The patient did fever last night. However, the patient afebrile since then. Has been breathing comfortably. Denies any chest pain. No abdominal pain or any diarrhea. PHYSICAL EXAMINATION: On examination, blood pressure 111/56 with a pulse of 85, temperature 98.1. He is 93% on 2 L nasal cannula. General description is an elderly male up in the chair in no distress. HEENT EXAMINATION: Oral thrush slightly improved. LUNGS: Unlabored breathing. Clear to auscultation. HEART: S1, S2. Regular rate and rhythm. ABDOMEN: Soft. No tenderness. LABS: White count down to 13,000 with a BUN of 18, creatinine 0.68. DIAGNOSTIC IMPRESSION AND PLAN: 1. Patient with a positive sputum culture likely representing a colonization. No need for any therapy for this. 2. Oral thrush. Continue with Diflucan. White count shows a downward trend. MMODL / IJN: [id number] /
[2017-02-13 09:21] LABS: Anion Gap 1 mmol/L; Blood Urea Nitrogen 16 mg/dL (9-20); Calcium 7.4 mg/dL (8.4-10.2); Carbon Dioxide 33 mmol/L (22-30); Chloride 98 mmol/L (98-107); Glucose 87 mg/dL (74-99); Non-African American GFR(MDRD) >60 (>60 ml/min/1.73 sqM); Potassium 3.9 mmol/L (3.5-5.1); Sodium 132 mmol/L (137-145)
[2017-02-13 11:07] LABS: Add Differential Manual Differential
[2017-02-13 11:12] LABS: Band Neutrophils % 3 %; Nucleated Red Blood Cells 0 /100 WBC (0-0); Total Cells Counted 100
[2017-02-13 11:14] LABS: Ovalocytes Present
[2017-02-13 11:58] LABS: Glucose,Whole Blood 104 mg/dL (75-99)
--- NOTE | 2017-02-13 12:01 | P.PN ---
Subjective Principal diagnosis: Acute exacerbation of COPD, acute hypoxic respiratory failure 76-year-old male patient presented to the emergency department with increased shortness of breath, cough, chest tightness and wheezing. The patient was treated recently at [facility] for pneumonia. He was also given diagnosis of Fletcher's palsy. He was also found to have difficulty in swallowing and he was given a PEG tube for enteral feeding and nutritional support. His chest x-rays have any acute pulmonary infiltrates. The patient is bronchospastic and wheezy and he was started on a combination of bronchodilators and systemic steroids will be also added. No significant sputum production. No clear-cut history of aspiration of food material. This patient is known to have COPD. He is also known to have chronic lymphocytic leukemia who has been followed up by Dr Bradshaw on an outpatient basis. The patient lives in [place] and he goes to [facility]. The patient's CLL has been essentially stable. The patient did not have any indication for therapy and his been monitored clinically. He also has COPD. He has been seen by a informatica mdm developer in [place], and he has undergone a pulmonary function test and he was told that his lung capacities in order of 50% . I'm assuming his FEV1 is in the range of 50%. The patient was given Symbicort 160/4.5, 2 puffs twice daily regarding maintenance therapy for COPD. Denies having any recurrent exacerbations. Denies having any major pulmonary complications from the COPD. Patient was [facility] back in December 2016. At that time he was having difficulties with swallowing and soreness in his throat and tongue and change in his voice along with some difficulties in swallowing and speech. He was also having persistent fever and he developed a body rash which probably at a later stage attributed to be related to a viral infection/questionable chickenpox an immune compromised patient knowing that the skin lesion that was taken do not to be positive for VZV virus. The patient also has chronic atrial fibrillation and he was treated in the past for A. fib/RVR. He is having the same issue for now is currently on Cardizem drip at 5 mg an hour. Echocardiogram showed mild concentric hypertrophy. He has an ejection fraction of 55%. Mild MR and mild TR. No vegetations. On I'm seeing this patient in follow-up. I was able to meet and get more information from his . As mentioned, the patient has complication of chronic lymphocytic leukemia. 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 The patient was infected with varicella virus, possibly a chickenpox event, presenting with diffuse rash and subsequently the patient developed a Fletcher's palsy which resulted in significant positive left face, hearing deficits in addition. The patient also had difficulty in swallowing. Further ENT evaluation that was done at [facility] revealed that the patient had recurrent or extension of his CLL into his posterior oropharyngeal area which was affecting his swallow. Based on that the patient was given a PEG tube. He was treated for pneumonia. Subsequently was given systemic chemotherapy. I saw this patient yesterday in consultation and he was an acute COPD exacerbation. I gave him bronchodilators and systemic steroids. Today's more hypoxic and was placed on high flow oxygen at 4 L/m nasal cannula. A CT angios the chest needs to follow up to rule out any pneumonia/pulmonary embolism /any other abnormalities contributing to his hypoxemia and shortness of breath. MRI of the brain was done that showed no acute abnormalities and there is evidence of pansinusitis. The patient is currently on IV Rocephin 1 g every 24 hours and Zithromax oral. In terms of his atrial fibrillation, the patient is under better control and currently is on oral Cardizem 30 mg by mouth 3 times a day. He is on no anticoagulants for now. On 02/06/2017, I'm seeing this patient in follow-up. He is looking much better. Less short of breath. The high flow oxygen has been discontinued and the patient is currently on 4-6 L/m nasal cannula and his saturations around 96% . He is breathing much easier. No shortness of breath. Cough and congestion still present although less compared to yesterday. He underwent a CAT scan of the chest that shows COPD. No evidence of any pulmonary embolism. No evidence of an acute pneumonia atelectasis or effusions. Mediastinum was also clear. As such the patient is a improving. He is afebrile. His white cell count was gradually dropping is currently down to 17.4. He continues to receive enteral feeding for nutritional support. He is on Rocephin and Zithromax as empiric antibiotic coverage. He is on DuoNeb, Pulmicort Respules, Perforomist neb last treatment and IV Solu-Medrol. On 02/07/2017 the patient is stable. Is still on 5-6 L of oxygen nasal cannula. His COPD exacerbations gradually improving. CAT scan of the chest results were noted. He is still receiving PEG tube feeding for nutritional support. The is concerned that he may be aspirating while receiving the packed to feed and for that reason dye will be added to the enteral feeding/ tube feeds. The patient is still on broad-spectrum antibiotics. The patient is doing well. 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 Fletcher's palsy is gradually improving. He feels the ability to close the eye is improved. He may benefit from another swallow evaluation at the later stage. The sputum sample if was collected showed presumed staph aureus and Enterobacter. The patient is on a combination of Zithromax and Rocephin. I would suggest monitoring the cultures and make appropriate adjustments based on his final cultures and sensitivities. Note that the CAT scan of the chest does not show any significant pneumonia. On 02/08/2017 the patient is gradually improving. The oxygen flow has been cut down to 4 L of oxygen nasal cannula. This is his baseline. He is not aspirating. He is receiving enteral feeding for nutritional support. No fever or chills. Still awaiting the final sensitivities on the sputum analysis. The patient had Enterobacter and presumed staph aureus. Enterobacter is a ESBL producing organism. Despite this, the patient does not show any signs of septicemia. She he has been maintained on a combination of Rocephin and Zithromax which is not ideal for this of infection of the systems out to be a true infection. For all this reasons, I'm going to consult infectious disease. On 02/09/2017 the patient remains stable and he has no specific complaints. He is receiving enteral feeding for nutritional support. Placed and infectious disease consultation to see Dr. martinez regarding the Enterobacter /ESBL producing organism along with the presumed staph aureus. These may be colonization knowing that the patient was not treated for those and he recovered nicely. The patient is on 4 L of oxygen by nasal cannula. No aspiration. Swallow evaluation was done tomorrow. He will be taken off the IV Solu Medrol start on a prednisone burst taper. No other complaints otherwise. His emanating in the hallway. He is active. He is having significant hearing impairment and he still has manifestations of a Fletcher's palsy. On 02/10/2017, patient seems to be doing much better, continues to have intermittent episodes of productive cough, seen by infectious disease on consultation, and antibiotics are being addressed accordingly. Overall the patient has made a significant improvement over the last few days. Labs were reviewed continues to have leukocytosis WBC count of 16.2 hemoglobin is 10.2. His metabolic profile is normal. Last CT of the chest failed to show evidence of pneumonia, she'll negative for pulmonary embolism, and there was evidence of old a lumbar disc disease. On 02/11/2017, patient continues to steadily improve. However his swallow evaluation yesterday clearly showed that the patient has poor propulsion of food into the distal esophagus. Hence I would suggest at this point no feedings whatsoever, continue to use the PEG tube. Patient's pulmonary status seems to be doing better, less cough and less wheezing less shortness of breath. Patient remains on bronchodilators. And he remains on prednisone at 40 mg by mouth daily. Patient is also on Mycostatin and fluconazole for oral thrush. The patient was seen again today 02/12/2017 in follow-up on the selective care unit. He is currently resting comfortably in bed. He denies any worsening shortness of breath. He has some retained secretions that he is able to cough out. He did fail his swallow evaluation. He is maintaining good O2 saturations in the 90s on 4 L/m per nasal cannula. His only complaint today is that of ongoing nausea. He did receive Zofran. He is still getting tube feedings at 45 mls per hour which is his goal. He is having bowel movements. Again today 02/13/2017 in follow-up on the regular medical floor. He is awake and alert in no acute distress. He denies any shortness of breath. He still has a loose productive cough of pale yellow sputum. He mainly complains of ongoing issues with nausea. Flat plate of the abdomen revealed no acute abdominal pelvic radiographic process. There was a noted small left pleural effusion and a follow-up chest x-ray was done which revealed background mild chronic and of emphysematous changes redemonstrated. There is some new mild central vascular congestion and bilateral interstitial edema with slightly more prominent bibasilar atelectasis. Aspiration remains in the differential. There is also concern regarding possible new subglottic stenosis. He remains nothing by mouth. Objective - Vital Signs Vital signs: Vital Signs Temp 98.6 F 02/13/17 07:00 Pulse 100 02/13/17 11:24 Resp 16 02/13/17 07:00 BP 118/52 02/13/17 07:00 Pulse Ox 93 L 02/13/17 07:14 Intake & Output 02/12/17 02/13/17 02/13/17 18:59 06:59 18:59 Intake Total 360 529 180 Output Total 153 1229 Balance 207 -700 180 Weight 92.5 kg Intake: Tube Feeding 360 529 180 Output: Urine 150 1225 Stool 3 4 Other: Voiding Method Urinal Urinal # Voids 3 - Exam GENERAL EXAM: Alert, fairly comfortable in no apparent distress. HEAD: Normocephalic. There is a left-sided facial droop secondary to Fletcher's palsy. EYES: Normal reaction of pupils, equal size. NOSE: Clear with pink turbinates. THROAT: No erythema or exudates. NECK: No masses, no JVD. CHEST: No chest wall deformity. LUNGS: Equal air entry with few scattered rhonchi. CVS: S1 and S2 normal with no audible murmurs, regular rhythm. ABDOMEN: No hepatosplenomegaly, normal bowel sounds, PEG tube exit site is clean and dry. Extremities: There is trace peripheral edema. No clubbing, no cyanosis. Peripheral pulses are intact. - Labs CBC & Chem 7: 02/13/17 08:56 02/13/17 08:56 Labs: Abnormal Lab Results - Last 24 Hours (Table) 02/12/17 02/12/17 02/12/17 Range/Units 11:42 11:42 11:43 WBC 13.0 H (3.8-10.6) k/uL RBC 3.66 L (4.30-5.90) m/uL Hgb 10.4 L (13.0-17.5) gm/dL Hct 34.5 L (39.0-53.0) % MCHC 30.1 L (31.0-37.0) g/dL RDW 21.5 H (11.5-15.5) % Neutrophils # (Manual) 9.70 H (1.3-7.7) k/uL Metamyelocytes # (Man) 0.13 H (0) k/uL Myelocytes # (Manual) 0.13 H (0) k/uL Sodium 135 L (137-145) mmol/L Carbon Dioxide (22-30) mmol/L Glucose 122 H (74-99) mg/dL POC Glucose (mg/dL) 129 H (75-99) mg/dL Calcium 7.6 L (8.4-10.2) mg/dL Total Protein 3.9 L (6.3-8.2) g/dL Albumin 2.3 L (3.5-5.0) g/dL 02/12/17 02/13/17 02/13/17 Range/Units 17:00 07:47 08:56 WBC 12.6 H (3.8-10.6) k/uL RBC 3.40 L (4.30-5.90) m/uL Hgb 9.6 L (13.0-17.5) gm/dL Hct 31.7 L (39.0-53.0) % MCHC 30.3 L (31.0-37.0) g/dL RDW 21.2 H (11.5-15.5) % Neutrophils # (Manual) 8.30 H (1.3-7.7) k/uL Metamyelocytes # (Man) (0) k/uL Myelocytes # (Manual) (0) k/uL Sodium (137-145) mmol/L Carbon Dioxide (22-30) mmol/L Glucose (74-99) mg/dL POC Glucose (mg/dL) 144 H 101 H (75-99) mg/dL Calcium (8.4-10.2) mg/dL Total Protein (6.3-8.2) g/dL Albumin (3.5-5.0) g/dL 02/13/17 Range/Units 08:56 WBC (3.8-10.6) k/uL RBC (4.30-5.90) m/uL Hgb (13.0-17.5) gm/dL Hct (39.0-53.0) % MCHC (31.0-37.0) g/dL RDW (11.5-15.5) % Neutrophils # (Manual) (1.3-7.7) k/uL Metamyelocytes # (Man) (0) k/uL Myelocytes # (Manual) (0) k/uL Sodium 132 L (137-145) mmol/L Carbon Dioxide 33 H (22-30) mmol/L Glucose (74-99) mg/dL POC Glucose (mg/dL) (75-99) mg/dL Calcium 7.4 L (8.4-10.2) mg/dL Total Protein (6.3-8.2) g/dL Albumin (3.5-5.0) g/dL Assessment and Plan Plan: Assessment 1 acute COPD exacerbation with secondary shortness of breath, improving and the CAT scan of the chest is been negative. The sputum is growing Enterobacter and methicillin-resistant staph aureus. Suspect colonizing. Today's chest x-ray does show worsening bibasilar infiltrates and interstitial edema. Suspect aspiration. There is also noted subglotic stenosis suspect acute viral process. 2 acute hypoxic respiratory failure and her to suspected aspiration COPD exacerbation, currently on 5 L/m per nasal cannula. 3 COPD per history with a baseline FEV1 of estimated to be at 50% of predicted maintained on Symbicort on outpatient basis 4 chronic leukocytic leukemia, with secondary hypogammaglobulinemia. 5 paroxysmal A. fib fibrillation 6 hypothyroidism 7 recent viral skin rash, possibly related to chickenpox nontender the skin lesion was positive for VZV by PCR. 8 Fletcher's palsy 9 difficulty with swallowing secondary to CLL involving the posterior oropharynx and the laryngeal odell based on an ENT evaluation was done [facility]. The patient currently is receiving enteral feeding for nutritional support 10 enteral feeding for nutritional support through a PEG tube. 11 impaired hearing post viral Plan The patient was seen and evaluated by Dr. Baeza. His chest x-ray was reviewed. We will go ahead and place the patient back on antibiotics in the form of clindamycin and Levaquin. He'll remain in aspiration precautions. Remain nothing by mouth. Continue tube feedings as tolerated. GI services has been consulted for the ongoing nausea. We will continue to follow and make further recommendations based on his clinical status.
[2017-02-13 13:04] VITALS: BMI 29.2
[2017-02-13] MEDS: CLINDAMYCIN 600 MG in DEXTROSE 5% IN WATER 50 ML IVPB SCH ×4 (14:04→17:14)
[2017-02-13] MEDS: LEVOFLOXACIN 750MG-D5W PMX 750 MG in DEXTROSE/WATER 1 150ML.BAG IVPB SCH (15:18)
[2017-02-13 18:18] LABS: Glucose,Whole Blood 100 mg/dL (75-99)
--- NOTE | 2017-02-13 18:50 | P.PN ---
Subjective This is a 76-year-old gentleman with history of lymphoma. Thereafter, apparently was noted to have dysphagia secondary to what appears to be lesions found on the esophagus secondary to lymphoma. The patient was treated at [facility] and had significant aspiration; hence, has been on tube feeding only with strict n.p.o. The patient apparently was recently discharged from [facility] on Thursday after undergoing 2 cycles of chemotherapy. The patient was to follow up with his physician at [facility] as well. 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 The patient was discharged on 2 L supplemental oxygen. However, the patient was brought back to the hospital with difficulty in breathing, was slightly confused. The patient today is requiring 4-6 L of supplemental oxygen with Opti Flow machine. The patient also underwent some workup for encephalopathy, was started on Rocephin and Zithromax due to acute sinusitis. The patient had recent aspiration pneumonia. A CT angiogram of the chest was also done to rule out a pulmonary embolism, which was negative. 02/07/2017 Patient is currently on 4 L supplement oxygen Appears to be in better spirits. States that he feels better in regards to his breathing distress and his eyes also improved No fevers abnormal rhythms are reported by the nursing staff. 02/08/2017 Some degree of aspiration is suspected. The rigid did implement the food coloring to patient's tube feedings however no sputum is noted with the same color Patient again was laid flat last night aspiration precautions were not appropriately followed However patient states that he is feeling somewhat better today 02/09/2017 Is doing well is more awake is able to converse longer His only complaint is abdominal discomfort intermittently Interval history the did sweet pickle maker the service backup today. Over the last few days patient was doing significantly better apparently was able to ambulate with some help plan was to discharge the patient home however patient has been having some discomfort in his abdomen Reglan was added overnight However states that that his breathing is significantly improved denies having any fevers chills nausea except for intermittent episodes of abdominal discomfort and nausea that time OBJECTIVE DATA: GENERAL APPEARANCE: At his baseline. No acute distress. LUNGS: Diminished breath sounds. Respiratory crackles good air movement noted. HEART: Irregularly irregular. No murmurs appreciated. ABDOMEN: Soft, nontender. PEG tube is noted. LOWER EXTREMITIES: No edema is noted. NEURO: Moves all 4 extremities. The left-sided facial droop consistent with a Fletcher's palsy is appreciated, currently on 6 L supplemental oxygen. ASSESSMENT AND PLAN: 1. Acute exacerbation of chronic obstructive pulmonary disease with acute on chronic, improving hypoxemic respiratory failure. 2. CLL with secondary hypogammaglobinemia. 3. Paroxysmal atrial fibrillation, currently rate controlled. 4. Hypothyroidism. 5. Recent varicella zoster infection. 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 7. 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 PLAN: Continue ongoing care Did discuss with the dietitian to decreased free water infusion We'll hold on PEG tube feeds and check a residual GI consultation was obtained Continue monitoring Objective - Vital Signs Vital signs: Vital Signs Temp 98.6 F 02/13/17 15:00 Pulse 90 02/13/17 17:20 Resp 16 02/13/17 15:00 BP 123/69 02/13/17 15:00 Pulse Ox 95 02/13/17 17:10 Intake & Output 02/12/17 02/13/17 02/13/17 18:59 06:59 18:59 Intake Total 214 084 7555 Output Total 153 1229 6 Balance 207 -700 1129 Weight 92.5 kg 92.5 kg Intake: IV 100 Clindamycin 600 mg In 100 Dextrose 5% in Water 50 ml @ 100 mls/hr IVPB Q6HR [facility] Rx#:[id number] Tube Feeding 360 529 810 Other 225 Output: Urine 150 1225 Stool 3 4 6 Other: Voiding Method Urinal Urinal Urinal # Voids 3 1 # Bowel Movements 2 - Labs CBC & Chem 7: 02/13/17 08:56 02/13/17 08:56 Labs: Abnormal Lab Results - Last 24 Hours (Table) 02/13/17 02/13/17 02/13/17 Range/Units 07:47 08:56 08:56 WBC 12.6 H (3.8-10.6) k/uL RBC 3.40 L (4.30-5.90) m/uL Hgb 9.6 L (13.0-17.5) gm/dL Hct 31.7 L (39.0-53.0) % MCHC 30.3 L (31.0-37.0) g/dL RDW 21.2 H (11.5-15.5) % Neutrophils # (Manual) 8.30 H (1.3-7.7) k/uL Sodium 132 L (137-145) mmol/L Carbon Dioxide 33 H (22-30) mmol/L POC Glucose (mg/dL) 101 H (75-99) mg/dL Calcium 7.4 L (8.4-10.2) mg/dL 02/13/17 02/13/17 Range/Units 11:49 18:06 WBC (3.8-10.6) k/uL RBC (4.30-5.90) m/uL Hgb (13.0-17.5) gm/dL Hct (39.0-53.0) % MCHC (31.0-37.0) g/dL RDW (11.5-15.5) % Neutrophils # (Manual) (1.3-7.7) k/uL Sodium (137-145) mmol/L Carbon Dioxide (22-30) mmol/L POC Glucose (mg/dL) 104 H 100 H (75-99) mg/dL Calcium (8.4-10.2) mg/dL
[2017-02-13] MEDS: FLUCONAZOLE ORAL SUSP 1,400 MG/35 ML BOTTLE PEG/G-TUBE SCH (20:20)
[2017-02-14] MEDS: CLINDAMYCIN 600 MG in DEXTROSE 5% IN WATER 50 ML IVPB SCH ×4 (00:14→06:25)
[2017-02-14 00:20] LABS: Glucose,Whole Blood 102 mg/dL (75-99)
[2017-02-14 06:19] LABS: Glucose,Whole Blood 117 mg/dL (75-99)
[2017-02-14] MEDS: LEVOTHYROXINE 125 MCG TAB PO SCH (06:22)
[2017-02-14] MEDS: DILTIAZEM ORAL 30 MG TAB PO SCH ×3 (07:25→22:14)
[2017-02-14] MEDS: PANTOPRAZOLE 40 MG TABLET PO SCH (07:25)
[2017-02-14 07:26] LABS: Glucose,Whole Blood 112 mg/dL (75-99)
[2017-02-14] MEDS: NYSTATIN 100,000 UNIT/ML SUSP 500,000 UNIT/5 ML CUP PO SCH ×4 (07:26→22:14)
[2017-02-14] MEDS: predniSONE 10 MG TAB PO SCH (07:27)
[2017-02-14] MEDS: INSULIN LISPRO (humaLOG) 300 UNIT/3 ML VIAL SQ SCH ×4 (07:28→22:15)
[2017-02-14] MEDS: GENTAMICIN 0.3% OPHTH OINT 3.5 GM TUBE LEFT EYE SCH ×2 (07:29→22:14)
[2017-02-14] MEDS: IPRATROPIUM-ALBUTEROL 3 ML NEB INHALATION SCH ×4 (08:44→19:48)
[2017-02-14] MEDS: FORMOTEROL FUMARATE 20 MCG/2 ML NEBU INHALATION SCH ×2 (08:44→19:48)
[2017-02-14] MEDS: BUDESONIDE 0.5 MG/2 ML NEBU INHALATION SCH ×2 (08:45→19:48)
[2017-02-14 11:57] LABS: Glucose,Whole Blood 131 mg/dL (75-99)
[2017-02-14] MEDS: metroNIDAZOLE 500 MG TAB PEG/G-TUBE SCH ×3 (12:21→22:14)
[2017-02-14] MEDS: MULTIVITAMINS, THERA 1 EACH TAB PO SCH (12:22)
--- NOTE | 2017-02-14 12:23 | PN ---
PROGRESS NOTE DATE OF SERVICE: 02/13/2017 REASON FOR FOLLOW UP: Oral thrush and positive sputum culture. INTERVAL HISTORY: The patient is afebrile. He has been feeling slightly nauseated and some pain in the lower abdominal area for which GI has been consulted. Has been tolerating his tube feeds. No significant diarrhea per the . Breathing has been comfortable. EXAMINATION: Blood pressure 123/69 with a pulse of 93, temperature 98.6. He is 95% on 3 L nasal cannula. General description is an elderly male, lying in bed, in no distress. RESPIRATORY SYSTEM: Unlabored breathing. Clear to auscultation. HEART: S1, S2. Regular rate and rhythm. ABDOMEN: Soft. No tenderness. Oral mucosa thrush has shown improvement. LABS: Hemoglobin 9.1, white count of 12.6 with a BUN of 16, creatinine 0.68. DIAGNOSTIC IMPRESSION AND PLAN: 1. Patient with a positive sputum culture more likely a colonization. No need for any specific antibiotic therapy for the same. 2. Thrush. To continue with Diflucan and has shown overall clinical improvement. Continue supportive care. MMODL / IJN: [id number] /
[2017-02-14] MEDS ORDERED: FUROSEMIDE 10 MG/ML 4 ML VIAL IV STA (12:29)
--- NOTE | 2017-02-14 12:35 | P.PN ---
Subjective Principal diagnosis: Acute exacerbation of COPD, acute hypoxic respiratory failure 76-year-old male patient presented to the emergency department with increased shortness of breath, cough, chest tightness and wheezing. The patient was treated recently at [facility] for pneumonia. He was also given diagnosis of Fletcher's palsy. He was also found to have difficulty in swallowing and he was given a PEG tube for enteral feeding and nutritional support. His chest x-rays have any acute pulmonary infiltrates. The patient is bronchospastic and wheezy and he was started on a combination of bronchodilators and systemic steroids will be also added. No significant sputum production. No clear-cut history of aspiration of food material. This patient is known to have COPD. He is also known to have chronic lymphocytic leukemia who has been followed up by Dr Bradshaw on an outpatient basis. The patient lives in [place] and he goes to [facility]. The patient's CLL has been essentially stable. The patient did not have any indication for therapy and his been monitored clinically. He also has COPD. He has been seen by a sales hunter in [place], and he has undergone a pulmonary function test and he was told that his lung capacities in order of 50% . I'm assuming his FEV1 is in the range of 50%. The patient was given Symbicort 160/4.5, 2 puffs twice daily regarding maintenance therapy for COPD. Denies having any recurrent exacerbations. Denies having any major pulmonary complications from the COPD. Patient was admitted To [facility] back in December 2016. At that time he was having difficulties with swallowing and soreness in his throat and tongue and change in his voice along with some difficulties in swallowing and speech. He was also having persistent fever and he developed a body rash which probably at a later stage attributed to be related to a viral infection/questionable chickenpox an immune compromised patient knowing that the skin lesion that was taken do not to be positive for VZV virus. The patient also has chronic atrial fibrillation and he was treated in the past for A. fib/RVR. He is having the same issue for now is currently on Cardizem drip at 5 mg an hour. Echocardiogram showed mild concentric hypertrophy. He has an ejection fraction of 55%. Mild MR and mild TR. No vegetations. On I'm seeing this patient in follow-up. I was able to meet and get more information from his . As mentioned, the patient has complication of chronic lymphocytic leukemia. 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 The patient was infected with varicella virus, possibly a chickenpox event, presenting with diffuse rash and subsequently the patient developed a Fletcher's palsy which resulted in significant positive left face, hearing deficits in addition. The patient also had difficulty in swallowing. Further ENT evaluation that was done at [facility] revealed that the patient had recurrent or extension of his CLL into his posterior oropharyngeal area which was affecting his swallow. Based on that the patient was given a PEG tube. He was treated for pneumonia. Subsequently was given systemic chemotherapy. I saw this patient yesterday in consultation and he was an acute COPD exacerbation. I gave him bronchodilators and systemic steroids. Today's more hypoxic and was placed on high flow oxygen at 4 L/m nasal cannula. A CT angios the chest needs to follow up to rule out any pneumonia/pulmonary embolism /any other abnormalities contributing to his hypoxemia and shortness of breath. MRI of the brain was done that showed no acute abnormalities and there is evidence of pansinusitis. The patient is currently on IV Rocephin 1 g every 24 hours and Zithromax oral. In terms of his atrial fibrillation, the patient is under better control and currently is on oral Cardizem 30 mg by mouth 3 times a day. He is on no anticoagulants for now. On 02/06/2017, I'm seeing this patient in follow-up. He is looking much better. Less short of breath. The high flow oxygen has been discontinued and the patient is currently on 4-6 L/m nasal cannula and his saturations around 96% . He is breathing much easier. No shortness of breath. Cough and congestion still present although less compared to yesterday. He underwent a CAT scan of the chest that shows COPD. No evidence of any pulmonary embolism. No evidence of an acute pneumonia atelectasis or effusions. Mediastinum was also clear. As such the patient is a improving. He is afebrile. His white cell count was gradually dropping is currently down to 17.4. He continues to receive enteral feeding for nutritional support. He is on Rocephin and Zithromax as empiric antibiotic coverage. He is on DuoNeb, Pulmicort Respules, Perforomist neb last treatment and IV Solu-Medrol. On 02/07/2017 the patient is stable. Is still on 5-6 L of oxygen nasal cannula. His COPD exacerbations gradually improving. CAT scan of the chest results were noted. He is still receiving PEG tube feeding for nutritional support. The is concerned that he may be aspirating while receiving the packed to feed and for that reason dye will be added to the enteral feeding/ tube feeds. The patient is still on broad-spectrum antibiotics. The patient is doing well. 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 Fletcher's palsy is gradually improving. He feels the ability to close the eye is improved. He may benefit from another swallow evaluation at the later stage. The sputum sample if was collected showed presumed staph aureus and Enterobacter. The patient is on a combination of Zithromax and Rocephin. I would suggest monitoring the cultures and make appropriate adjustments based on his final cultures and sensitivities. Note that the CAT scan of the chest does not show any significant pneumonia. On 02/08/2017 the patient is gradually improving. The oxygen flow has been cut down to 4 L of oxygen nasal cannula. This is his baseline. He is not aspirating. He is receiving enteral feeding for nutritional support. No fever or chills. Still awaiting the final sensitivities on the sputum analysis. The patient had Enterobacter and presumed staph aureus. Enterobacter is a ESBL producing organism. Despite this, the patient does not show any signs of septicemia. She he has been maintained on a combination of Rocephin and Zithromax which is not ideal for this of infection of the systems out to be a true infection. For all this reasons, I'm going to consult infectious disease. On 02/09/2017 the patient remains stable and he has no specific complaints. He is receiving enteral feeding for nutritional support. Placed and infectious disease consultation to see Dr. martinez regarding the Enterobacter /ESBL producing organism along with the presumed staph aureus. These may be colonization knowing that the patient was not treated for those and he recovered nicely. The patient is on 4 L of oxygen by nasal cannula. No aspiration. Swallow evaluation was done tomorrow. He will be taken off the IV Solu Medrol start on a prednisone burst taper. No other complaints otherwise. His emanating in the hallway. He is active. He is having significant hearing impairment and he still has manifestations of a Fletcher's palsy. On 02/10/2017, patient seems to be doing much better, continues to have intermittent episodes of productive cough, seen by infectious disease on consultation, and antibiotics are being addressed accordingly. Overall the patient has made a significant improvement over the last few days. Labs were reviewed continues to have leukocytosis WBC count of 16.2 hemoglobin is 10.2. His metabolic profile is normal. Last CT of the chest failed to show evidence of pneumonia, she'll negative for pulmonary embolism, and there was evidence of old a lumbar disc disease. On 02/11/2017, patient continues to steadily improve. However his swallow evaluation yesterday clearly showed that the patient has poor propulsion of food into the distal esophagus. Hence I would suggest at this point no feedings whatsoever, continue to use the PEG tube. Patient's pulmonary status seems to be doing better, less cough and less wheezing less shortness of breath. Patient remains on bronchodilators. And he remains on prednisone at 40 mg by mouth daily. Patient is also on Mycostatin and fluconazole for oral thrush. The patient was seen again today 02/12/2017 in follow-up on the selective care unit. He is currently resting comfortably in bed. He denies any worsening shortness of breath. He has some retained secretions that he is able to cough out. He did fail his swallow evaluation. He is maintaining good O2 saturations in the 90s on 4 L/m per nasal cannula. His only complaint today is that of ongoing nausea. He did receive Zofran. He is still getting tube feedings at 45 mls per hour which is his goal. He is having bowel movements. Again today 02/13/2017 in follow-up on the regular medical floor. He is awake and alert in no acute distress. He denies any shortness of breath. He still has a loose productive cough of pale yellow sputum. He mainly complains of ongoing issues with nausea. Flat plate of the abdomen revealed no acute abdominal pelvic radiographic process. There was a noted small left pleural effusion and a follow-up chest x-ray was done which revealed background mild chronic and of emphysematous changes redemonstrated. There is some new mild central vascular congestion and bilateral interstitial edema with slightly more prominent bibasilar atelectasis. Aspiration remains in the differential. There is also concern regarding possible new subglottic stenosis. He remains nothing by mouth. Again today 02/14/2017 in follow-up on the regular medical floor. He is awake and alert in no acute distress. He appears stronger today as compared to yesterday. His nausea has subsided. He was evaluated by GI services. He continues to have stools that are draining color from previous dye test. C. difficile screen was negative. Is currently on Flagyl and Reglan. He denies any shortness of breath. He does continue with clear phlegm production. He does have a mild temp 99.2. Mean to in good O2 saturations in the mid 90s on 3 L/m per nasal cannula. Objective - Vital Signs Vital signs: Vital Signs Temp 99.2 F 02/14/17 07:05 Pulse 90 02/14/17 12:25 Resp 24 02/14/17 07:05 BP 127/67 02/14/17 07:05 Pulse Ox 94 L 02/14/17 07:05 Intake & Output 02/13/17 02/14/17 02/14/17 18:59 06:59 18:59 Intake Total 1135 1110 Output Total 6 151 152 Balance 1129 959 -152 Weight 92.5 kg 88.8 kg 88.8 kg Intake: IV 100 Clindamycin 600 mg In 100 Dextrose 5% in Water 50 ml @ 100 mls/hr IVPB Q6HR [facility] Rx#:[id number] Tube Feeding 810 990 Other 225 120 Output: Urine 151 150 Stool 6 2 Other: Voiding Method Urinal Urinal Urinal # Voids 1 1 1 # Bowel Movements 2 - Exam GENERAL EXAM: Alert, fairly comfortable in no apparent distress. HEAD: Normocephalic. There is a left-sided facial droop secondary to Fletcher's palsy. EYES: Normal reaction of pupils, equal size. NOSE: Clear with pink turbinates. THROAT: No erythema or exudates. NECK: No masses, no JVD. CHEST: No chest wall deformity. LUNGS: Equal air entry with few scattered rhonchi. CVS: S1 and S2 normal with no audible murmurs, regular rhythm. ABDOMEN: No hepatosplenomegaly, normal bowel sounds, PEG tube exit site is clean and dry. Extremities: There is trace peripheral edema. No clubbing, no cyanosis. Peripheral pulses are intact. - Labs CBC & Chem 7: 02/13/17 08:56 02/13/17 08:56 Labs: Abnormal Lab Results - Last 24 Hours (Table) 02/13/17 02/14/17 02/14/17 Range/Units 18:06 00:19 06:15 POC Glucose (mg/dL) 100 H 102 H 117 H (75-99) mg/dL 02/14/17 02/14/17 Range/Units 07:18 11:35 POC Glucose (mg/dL) 112 H 131 H (75-99) mg/dL Assessment and Plan Plan: Assessment 1 acute COPD exacerbation with secondary shortness of breath, improving and the CAT scan of the chest is been negative. The sputum is growing Enterobacter and methicillin-resistant staph aureus. Suspect colonizing. Today's chest x-ray does show worsening bibasilar infiltrates and interstitial edema. Suspect aspiration. There is also noted subglotic stenosis suspect acute viral process. 2 acute hypoxic respiratory failure and her to suspected aspiration COPD exacerbation, currently on 5 L/m per nasal cannula. 3 COPD per history with a baseline FEV1 of estimated to be at 50% of predicted maintained on Symbicort on outpatient basis 4 chronic leukocytic leukemia, with secondary hypogammaglobulinemia. 5 paroxysmal A. fib fibrillation 6 hypothyroidism 7 recent viral skin rash, possibly related to chickenpox nontender the skin lesion was positive for VZV by PCR. 8 Fletcher's palsy 9 difficulty with swallowing secondary to CLL involving the posterior oropharynx and the laryngeal odell based on an ENT evaluation was done [facility]. The patient currently is receiving enteral feeding for nutritional support 10 enteral feeding for nutritional support through a PEG tube. 11 impaired hearing post viral Plan The patient was seen and evaluated by Dr. Bazea. We will go ahead and place the patient back on antibiotics in the form of Levaquin. Flagyl has been added. He'll remain in aspiration precautions. Remain nothing by mouth. Continue tube feedings as tolerated. Lasix IV push 40 mg 1 today for increasing lower extremity edema. GI services has been consulted for the ongoing nausea. We will continue to follow and make further recommendations based on his clinical status.
[2017-02-14] MEDS: LEVOFLOXACIN 750MG-D5W PMX 750 MG in DEXTROSE/WATER 1 150ML.BAG IVPB SCH (13:10)
--- NOTE | 2017-02-14 14:21 | P.CONS ---
History of Present Illness - Reason for Consult Consult date: 02/14/17 - History of Present Illness The patient is a 76-year-old male history of CLL, diagnosed several years ago. He was admitted to the hospital in 12/22, with weakness, as well as skin rash due to shingles. He was subsequently admitted to [facility] with difficulty swallowing , herpes zoster and Fletcher's palsy. He had a PEG tube put in few days prior to this admission and was started on tube feedings and then discharged. He came into the emergency room because he was feeling increasingly short of breath , even at rest. He was found to be in A. fib with RVR. He was therefore admitted for further management. We are asked to see him because of recent issues with nausea. This apparently has improved after adjustments were made in his feeding schedule. He is currently receiving 45 mL/h and his free water was decreased from around 75 every 3 hours to around 50 and this has The residuals 20 mL or less and his nausea seems to have improved. The nursing staff reporting that he is having multiple diarrheal a movement and samples sent for C. diff were negative. No bleeding. Review of Systems Constitutional: Reports fatigue, Reports weakness Eyes: denies blurred vision, denies pain Ears: deny: decreased hearing, ear discharge, earache, tinnitus Ears, nose, mouth and throat: Denies headache, Denies sore throat Cardiovascular: Reports lightheadedness, Reports palpitations, Reports shortness of breath Respiratory: Reports dyspnea Gastrointestinal: Denies abdominal pain, Denies diarrhea, Denies nausea, Denies vomiting Genitourinary: Reports as per HPI (No specific complaints) Musculoskeletal: Reports muscle weakness Integumentary: Reports as per HPI (Recent left-sided facial shingles, which led to his Fletcher's palsy) Neurological: Reports as per HPI (Left-sided Fletcher's palsy. Dysphagia) Hematologic/Lymphatic: Reports as per HPI Past Medical History Past Medical History: Cancer, Pneumonia, Prostate Disorder, Thyroid Disorder Additional Past Medical History / Comment(s): Chronic lymphocytic leukemia, COPD /chronic bronchitis, paroxysmal atrial fibrillation, hypothyroidism, viral skin rash- chickenpox rash, Fletcher's palsy, History of Any Multi-Drug Resistant Organisms: MRSA Year Discovered:: 02/05/17 MDRO Source:: Sputum Additional Past Surgical History / Comment(s): THYROID SURGERY Past Anesthesia/Blood Transfusion Reactions: Blood Transfusion Reaction Additional Past Anesthesia/Blood Transfusion Reaction / Comm: GAVE BENADRYL AND RAN SLOW. Has had multiple transfusuions and has a reaction every time Past Psychological History: No Psychological Hx Reported Smoking Status: Former smoker Additional Past Alcohol Use History / Comment(s): Patient was only a smoker for 5-6 years in the 1960s. No marijuana or street drug use. He and his winter in [place] and return to [place] for the oates. They have a Jaurequi terrier without any other animal exposures he currently lives on the [address]. Patient does normal yardwork but no extensive gardening or other hobbies. - Past Family History Father Family Medical History: Dementia Mother Family Medical History: No Reported History Medications and Allergies Home Medications Medication Instructions Recorded Confirmed Type Budesonide/Formoterol Fumarate 2 puff INHALATION RT-BID 12/21/16 02/03/17 History [Symbicort 160-4.5 Mcg Inhaler] Levothyroxine Sodium [Synthroid] 125 mcg PO DAILY 12/21/16 02/03/17 History Multivitamins, Thera [Multivitamin 1 tab PO DAILY 12/21/16 02/03/17 History (formulary)] Allergies Allergy/AdvReac Type Severity Reaction Status Date / Time amoxicillin Allergy Rash/Hives Verified 02/03/17 12:22 clavulanic acid Allergy Rash/Hives Verified 02/03/17 19:57 [From Augmentin] rituximab [From Rituxan] Allergy Anaphylaxis Verified 02/03/17 19:57 Physical Exam Vitals: Vital Signs Temp Pulse Pulse Resp BP Pulse Ox 02/14/17 12:35 90 02/14/17 12:25 90 02/14/17 09:05 94 02/14/17 08:55 88 02/14/17 07:05 99.2 F 81 24 127/67 94 L 02/14/17 06:48 98.9 F 85 16 116/46 95 02/13/17 23:00 98.4 F 89 16 106/42 94 L 02/13/17 17:20 90 02/13/17 17:10 95 02/13/17 17:05 92 02/13/17 15:00 98.6 F 93 16 123/69 92 L Intake and Output 02/13/17 02/14/17 02/14/17 22:59 06:59 14:59 Intake Total 270 930 790 Output Total 5 150 152 Balance 265 780 638 Intake: Intake, IV Titration 250 Amount Levofloxacin 750Mg-D5w 250 Pmx 750 mg In Dextrose/ Water 1 150ml.bag @ 100 mls/hr IVPB Q24H [facility] Rx#: [id number] Tube Feeding 270 810 540 Other 120 Output: Urine 1 150 150 Stool 4 2 Other: Voiding Method Urinal Urinal # Voids 1 1 3 # Bowel Movements 3 Weight 88.8 kg 88.8 kg Patient Weight 02/15/17 06:59 Weight 88.8 kg GENERAL APPEARANCE: At his baseline. No acute distress. LUNGS: Diminished breath sounds. Respiratory crackles good air movement noted. HEART: Irregularly irregular. No murmurs appreciated. ABDOMEN: Soft, nontender. PEG tube is noted. LOWER EXTREMITIES: No edema is noted. NEURO: Moves all 4 extremities. The left-sided facial droop consistent with a Fletcher's palsy is appreciated, currently on 6 L supplemental oxygen. Results CBC & Chem 7: 02/13/17 08:56 02/13/17 08:56 Labs: Abnormal Lab Results - Last 24 Hours (Table) 02/13/17 02/14/17 02/14/17 Range/Units 18:06 00:19 06:15 POC Glucose (mg/dL) 100 H 102 H 117 H (75-99) mg/dL 02/14/17 02/14/17 Range/Units 07:18 11:35 POC Glucose (mg/dL) 112 H 131 H (75-99) mg/dL Assessment and Plan Plan: 76-year-old male with history of CLL/lymphoma with significant pre-esophageal dysphagia requiring feeding through a PEG tube, has been having issues with nausea that appears to have improved with adjustment in his feeding schedule. His diarrhea would need to be addressed as well, if it persists, through further adjustment of his formula or feeding rate. Will continue to observe on the current regimen and make further plans based on his course. I will discuss with you and continue to follow with you with interest.
--- NOTE | 2017-02-14 15:09 | P.PN ---
Subjective This is a 76-year-old gentleman with history of lymphoma. Thereafter, apparently was noted to have dysphagia secondary to what appears to be lesions found on the esophagus secondary to lymphoma. The patient was treated at [facility] and had significant aspiration; hence, has been on tube feeding only with strict n.p.o. The patient apparently was recently discharged from [facility] on Thursday after undergoing 2 cycles of chemotherapy. The patient was to follow up with his physician at [facility] as well. 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 The patient was discharged on 2 L supplemental oxygen. However, the patient was brought back to the hospital with difficulty in breathing, was slightly confused. The patient today is requiring 4-6 L of supplemental oxygen with Opti Flow machine. The patient also underwent some workup for encephalopathy, was started on Rocephin and Zithromax due to acute sinusitis. The patient had recent aspiration pneumonia. A CT angiogram of the chest was also done to rule out a pulmonary embolism, which was negative. 02/07/2017 Patient is currently on 4 L supplement oxygen Appears to be in better spirits. States that he feels better in regards to his breathing distress and his eyes also improved No fevers abnormal rhythms are reported by the nursing staff. 02/08/2017 Some degree of aspiration is suspected. The rigid did implement the food coloring to patient's tube feedings however no sputum is noted with the same color Patient again was laid flat last night aspiration precautions were not appropriately followed However patient states that he is feeling somewhat better today 02/09/2017 Is doing well is more awake is able to converse longer His only complaint is abdominal discomfort intermittently Interval history the did moss picker the service backup today. Over the last few days patient was doing significantly better apparently was able to ambulate with some help plan was to discharge the patient home however patient has been having some discomfort in his abdomen Reglan was added overnight 02/10/2017 Patient continues to have loose stools No fevers chills nausea vomiting. Breathing is stable. However states that that his breathing is significantly improved denies having any fevers chills nausea except for intermittent episodes of abdominal discomfort and nausea that time OBJECTIVE DATA: GENERAL APPEARANCE: At his baseline. No acute distress. LUNGS: Diminished breath sounds. Respiratory crackles good air movement noted. HEART: Irregularly irregular. No murmurs appreciated. ABDOMEN: Soft, nontender. PEG tube is noted. LOWER EXTREMITIES: No edema is noted. NEURO: Moves all 4 extremities. The left-sided facial droop consistent with a Fletcher's palsy is appreciated, currently on 6 L supplemental oxygen. ASSESSMENT AND PLAN: 1. Acute exacerbation of chronic obstructive pulmonary disease with acute on chronic, improving hypoxemic respiratory failure. 2. CLL with secondary hypogammaglobinemia. 3. Paroxysmal atrial fibrillation, currently rate controlled. 4. Hypothyroidism. 5. Recent varicella zoster infection. 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 7. 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 PLAN: Continue with Levaquin. Change to Flagyl 500 3 times a day Continue Diflucan. Discontinue clindamycin as patient is having significant stooling Stool studies are and pending patient continues to have green stools, is likely due to the food color that was infused to detect any aspiration Continue monitoring Objective - Vital Signs Vital signs: Vital Signs Temp 99.2 F 02/14/17 07:05 Pulse 90 02/14/17 12:35 Resp 24 02/14/17 14:57 BP 127/67 02/14/17 07:05 Pulse Ox 94 L 02/14/17 07:05 Intake & Output 02/13/17 02/14/17 02/14/17 18:59 06:59 18:59 Intake Total 1135 1110 1330 Output Total 6 151 1954 Balance 1129 859 -304 Weight 92.5 kg 88.8 kg 88.8 kg Intake: IV 100 Clindamycin 600 mg In 100 Dextrose 5% in Water 50 ml @ 100 mls/hr IVPB Q6HR [facility] Rx#:[id number] Intake, IV Titration 250 Amount Levofloxacin 750Mg-D5w 250 Pmx 750 mg In Dextrose/ Water 1 150ml.bag @ 100 mls/hr IVPB Q24H [facility] Rx#: [id number] Tube Feeding 807 201 5583 Other 225 120 Output: Urine 151 1950 Stool 6 4 Other: Voiding Method Urinal Urinal Urinal # Voids 1 1 3 # Bowel Movements 2 3 - Labs CBC & Chem 7: 02/13/17 08:56 02/13/17 08:56 Labs: Abnormal Lab Results - Last 24 Hours (Table) 02/13/17 02/14/17 02/14/17 Range/Units 18:06 00:19 06:15 POC Glucose (mg/dL) 100 H 102 H 117 H (75-99) mg/dL 02/14/17 02/14/17 Range/Units 07:18 11:35 POC Glucose (mg/dL) 112 H 131 H (75-99) mg/dL
[2017-02-14] MEDS ORDERED: metroNIDAZOLE-NS PMX 500 MG in SALINE 1 100ML.BAG IVPB SCH (16:00)
[2017-02-14 17:46] LABS: Glucose,Whole Blood 111 mg/dL (75-99)
[2017-02-14] MEDS: LORazepam 2 MG/ML SYRINGE IV PRN (22:12)
[2017-02-14] MEDS: FLUCONAZOLE ORAL SUSP 1,400 MG/35 ML BOTTLE PEG/G-TUBE SCH (22:13)
[2017-02-15 00:18] LABS: Glucose,Whole Blood 129 mg/dL (75-99)
[2017-02-15 06:04] LABS: Glucose,Whole Blood 135 mg/dL (75-99)
[2017-02-15 06:32] LABS: Glucose,Whole Blood 121 mg/dL (75-99)
[2017-02-15] MEDS: LEVOTHYROXINE 125 MCG TAB PO SCH (06:57)
[2017-02-15] MEDS: PANTOPRAZOLE 40 MG TABLET PO SCH (06:57)
[2017-02-15] MEDS: predniSONE 10 MG TAB PO SCH (06:58)
[2017-02-15] MEDS: GENTAMICIN 0.3% OPHTH OINT 3.5 GM TUBE LEFT EYE SCH ×2 (06:58→20:51)
[2017-02-15] MEDS: metroNIDAZOLE 500 MG TAB PEG/G-TUBE SCH ×3 (06:58→20:54)
[2017-02-15] MEDS: NYSTATIN 100,000 UNIT/ML SUSP 500,000 UNIT/5 ML CUP PO SCH ×4 (06:58→20:55)
[2017-02-15] MEDS: DILTIAZEM ORAL 30 MG TAB PO SCH ×3 (06:58→20:54)
[2017-02-15] MEDS: BUDESONIDE 0.5 MG/2 ML NEBU INHALATION SCH ×3 (06:58→19:33)
[2017-02-15] MEDS: INSULIN LISPRO (humaLOG) 300 UNIT/3 ML VIAL SQ SCH ×4 (06:59→23:21)
[2017-02-15] MEDS: FORMOTEROL FUMARATE 20 MCG/2 ML NEBU INHALATION SCH ×2 (07:20→19:33)
[2017-02-15] MEDS: IPRATROPIUM-ALBUTEROL 3 ML NEB INHALATION SCH ×4 (07:20→19:33)
[2017-02-15 12:01] LABS: Glucose,Whole Blood 129 mg/dL (75-99)
[2017-02-15] MEDS: MULTIVITAMINS, THERA 1 EACH TAB PO SCH (12:29)
--- NOTE | 2017-02-15 13:28 | P.PN ---
Subjective Principal diagnosis: Acute exacerbation of COPD, acute hypoxic respiratory failure 76-year-old male patient presented to the emergency department with increased shortness of breath, cough, chest tightness and wheezing. The patient was treated recently at [facility] for pneumonia. He was also given diagnosis of Fletcher's palsy. He was also found to have difficulty in swallowing and he was given a PEG tube for enteral feeding and nutritional support. His chest x-rays have any acute pulmonary infiltrates. The patient is bronchospastic and wheezy and he was started on a combination of bronchodilators and systemic steroids will be also added. No significant sputum production. No clear-cut history of aspiration of food material. This patient is known to have COPD. He is also known to have chronic lymphocytic leukemia who has been followed up by Dr Bradshaw on an outpatient basis. The patient lives in [place] and he goes to [facility]. The patient's CLL has been essentially stable. The patient did not have any indication for therapy and his been monitored clinically. He also has COPD. He has been seen by a claim analyst in [place], and he has undergone a pulmonary function test and he was told that his lung capacities in order of 50% . I'm assuming his FEV1 is in the range of 50%. The patient was given Symbicort 160/4.5, 2 puffs twice daily regarding maintenance therapy for COPD. Denies having any recurrent exacerbations. Denies having any major pulmonary complications from the COPD. Patient was admitted To [facility] back in December 2016. At that time he was having difficulties with swallowing and soreness in his throat and tongue and change in his voice along with some difficulties in swallowing and speech. He was also having persistent fever and he developed a body rash which probably at a later stage attributed to be related to a viral infection/questionable chickenpox an immune compromised patient knowing that the skin lesion that was taken do not to be positive for VZV virus. The patient also has chronic atrial fibrillation and he was treated in the past for A. fib/RVR. He is having the same issue for now is currently on Cardizem drip at 5 mg an hour. Echocardiogram showed mild concentric hypertrophy. He has an ejection fraction of 55%. Mild MR and mild TR. No vegetations. On I'm seeing this patient in follow-up. I was able to meet and get more information from his . As mentioned, the patient has complication of chronic lymphocytic leukemia. 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 The patient was infected with varicella virus, possibly a chickenpox event, presenting with diffuse rash and subsequently the patient developed a Fletcher's palsy which resulted in significant positive left face, hearing deficits in addition. The patient also had difficulty in swallowing. Further ENT evaluation that was done at [facility] revealed that the patient had recurrent or extension of his CLL into his posterior oropharyngeal area which was affecting his swallow. Based on that the patient was given a PEG tube. He was treated for pneumonia. Subsequently was given systemic chemotherapy. I saw this patient yesterday in consultation and he was an acute COPD exacerbation. I gave him bronchodilators and systemic steroids. Today's more hypoxic and was placed on high flow oxygen at 4 L/m nasal cannula. A CT angios the chest needs to follow up to rule out any pneumonia/pulmonary embolism /any other abnormalities contributing to his hypoxemia and shortness of breath. MRI of the brain was done that showed no acute abnormalities and there is evidence of pansinusitis. The patient is currently on IV Rocephin 1 g every 24 hours and Zithromax oral. In terms of his atrial fibrillation, the patient is under better control and currently is on oral Cardizem 30 mg by mouth 3 times a day. He is on no anticoagulants for now. On 02/06/2017, I'm seeing this patient in follow-up. He is looking much better. Less short of breath. The high flow oxygen has been discontinued and the patient is currently on 4-6 L/m nasal cannula and his saturations around 96% . He is breathing much easier. No shortness of breath. Cough and congestion still present although less compared to yesterday. He underwent a CAT scan of the chest that shows COPD. No evidence of any pulmonary embolism. No evidence of an acute pneumonia atelectasis or effusions. Mediastinum was also clear. As such the patient is a improving. He is afebrile. His white cell count was gradually dropping is currently down to 17.4. He continues to receive enteral feeding for nutritional support. He is on Rocephin and Zithromax as empiric antibiotic coverage. He is on DuoNeb, Pulmicort Respules, Perforomist neb last treatment and IV Solu-Medrol. On 02/07/2017 the patient is stable. Is still on 5-6 L of oxygen nasal cannula. His COPD exacerbations gradually improving. CAT scan of the chest results were noted. He is still receiving PEG tube feeding for nutritional support. The is concerned that he may be aspirating while receiving the packed to feed and for that reason dye will be added to the enteral feeding/ tube feeds. The patient is still on broad-spectrum antibiotics. The patient is doing well. 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 Fletcher's palsy is gradually improving. He feels the ability to close the eye is improved. He may benefit from another swallow evaluation at the later stage. The sputum sample if was collected showed presumed staph aureus and Enterobacter. The patient is on a combination of Zithromax and Rocephin. I would suggest monitoring the cultures and make appropriate adjustments based on his final cultures and sensitivities. Note that the CAT scan of the chest does not show any significant pneumonia. On 02/08/2017 the patient is gradually improving. The oxygen flow has been cut down to 4 L of oxygen nasal cannula. This is his baseline. He is not aspirating. He is receiving enteral feeding for nutritional support. No fever or chills. Still awaiting the final sensitivities on the sputum analysis. The patient had Enterobacter and presumed staph aureus. Enterobacter is a ESBL producing organism. Despite this, the patient does not show any signs of septicemia. She he has been maintained on a combination of Rocephin and Zithromax which is not ideal for this of infection of the systems out to be a true infection. For all this reasons, I'm going to consult infectious disease. On 02/09/2017 the patient remains stable and he has no specific complaints. He is receiving enteral feeding for nutritional support. Placed and infectious disease consultation to see Dr. martinez regarding the Enterobacter /ESBL producing organism along with the presumed staph aureus. These may be colonization knowing that the patient was not treated for those and he recovered nicely. The patient is on 4 L of oxygen by nasal cannula. No aspiration. Swallow evaluation was done tomorrow. He will be taken off the IV Solu Medrol start on a prednisone burst taper. No other complaints otherwise. His emanating in the hallway. He is active. He is having significant hearing impairment and he still has manifestations of a Fletcher's palsy. On 02/10/2017, patient seems to be doing much better, continues to have intermittent episodes of productive cough, seen by infectious disease on consultation, and antibiotics are being addressed accordingly. Overall the patient has made a significant improvement over the last few days. Labs were reviewed continues to have leukocytosis WBC count of 16.2 hemoglobin is 10.2. His metabolic profile is normal. Last CT of the chest failed to show evidence of pneumonia, she'll negative for pulmonary embolism, and there was evidence of old a lumbar disc disease. On 02/11/2017, patient continues to steadily improve. However his swallow evaluation yesterday clearly showed that the patient has poor propulsion of food into the distal esophagus. Hence I would suggest at this point no feedings whatsoever, continue to use the PEG tube. Patient's pulmonary status seems to be doing better, less cough and less wheezing less shortness of breath. Patient remains on bronchodilators. And he remains on prednisone at 40 mg by mouth daily. Patient is also on Mycostatin and fluconazole for oral thrush. Again today 02/13/2017 in follow-up on the regular medical floor. He is awake and alert in no acute distress. He denies any shortness of breath. He still has a loose productive cough of pale yellow sputum. He mainly complains of ongoing issues with nausea. Flat plate of the abdomen revealed no acute abdominal pelvic radiographic process. There was a noted small left pleural effusion and a follow-up chest x-ray was done which revealed background mild chronic and of emphysematous changes redemonstrated. There is some new mild central vascular congestion and bilateral interstitial edema with slightly more prominent bibasilar atelectasis. Aspiration remains in the differential. There is also concern regarding possible new subglottic stenosis. He remains nothing by mouth. Again today 02/14/2017 in follow-up on the regular medical floor. He is awake and alert in no acute distress. He appears stronger today as compared to yesterday. His nausea has subsided. He was evaluated by GI services. He continues to have stools that are draining color from previous dye test. C. difficile screen was negative. Is currently on Flagyl and Reglan. He denies any shortness of breath. He does continue with clear phlegm production. He does have a mild temp 99.2. Mean to in good O2 saturations in the mid 90s on 3 L/m per nasal cannula. On 02/15/2017, patient seems to be doing much better, has no active pulmonary symptoms whatsoever, no cough no wheezing no shortness of breath. Remains on the same medications as noted above, discharge planning is in progress for possibly in a.m. Labs were reviewed. They seem to be relatively unremarkable. Objective - Vital Signs Vital signs: Vital Signs Temp 98.4 F 02/15/17 06:19 Pulse 100 02/15/17 11:40 Resp 16 02/15/17 11:40 BP 102/52 02/15/17 06:19 Pulse Ox 95 02/15/17 06:19 Intake & Output 02/14/17 02/15/17 02/15/17 18:59 06:59 18:59 Intake Total 1330 3270 1465 Output Total 1954 2100 602 Balance -624 1170 863 Weight 88.8 kg 86.5 kg 86.5 kg Intake: Intake, IV Titration 250 Amount Levofloxacin 750Mg-D5w 250 Pmx 750 mg In Dextrose/ Water 1 150ml.bag @ 100 mls/hr IVPB Q24H [facility] Rx#: [id number] Oral 0 Tube Feeding 1080 3150 1465 Other 120 Output: Urine 1950 2100 600 Stool 4 2 Other: Voiding Method Urinal Urinal Urinal # Voids 3 2 5 # Bowel Movements 3 2 - Exam Physical Exam revealed a 76-year-old in no distress. Facial asymmetry was noted , drooping is noted on the right side. HEENT:[Neck is supple.] [No neck masses.] [No thyromegaly.] [No JVD.] Evidence of facial asymmetry noted related to Fletcher's palsy Chest: [Diminished breath sounds bilaterally with diffuse rhonchi and wheezes on forced expiratory maneuver..] Cardiac Exam: [Normal S1 and S2, no S3 gallop, no murmur.] Abdomen: [Soft, nontender, no megaly, no rebound, no guarding, normal bowel sounds.] Extremities: [No clubbing, no edema, no cyanosis.] Neurological Exam: Evidence of facial drooping and asymmetry, this is related to Fletcher's palsy otherwise no focal neurologic deficit noted - Labs CBC & Chem 7: 02/13/17 08:56 02/13/17 08:56 Labs: Abnormal Lab Results - Last 24 Hours (Table) 02/14/17 02/15/17 02/15/17 Range/Units 17:44 00:15 06:01 POC Glucose (mg/dL) 111 H 129 H 135 H (75-99) mg/dL 02/15/17 02/15/17 Range/Units 06:30 11:54 POC Glucose (mg/dL) 121 H 129 H (75-99) mg/dL Microbiology - Last 24 Hours (Table) 02/12/17 08:34 Stool Culture - Preliminary Stool Assessment and Plan Plan: 1 acute COPD exacerbation with secondary shortness of breath, improving and the CAT scan of the chest is been negative. The sputum is growing Enterobacter and presumed staph aureus. Based on the fact that the CAT scan is negative and the patient is improving we'll continue Rocephin and Zithromax. Until antibiotics are addressed by infectious disease on the case. Recommendation was to discontinue all antibiotics, and this was felt to be a colonization. 2 acute hypoxic respiratory failure, improving 3 COPD per history with a baseline FEV1 of estimated to be at 50% of predicted maintained on Symbicort on outpatient basis 4 chronic leukocytic leukemia, with secondary hypogammaglobulinemia. 5 paroxysmal A. fib fibrillation with rapid ventricular response and currently patient IV Cardizem for rate control 6 hypothyroidism 7 recent viral skin rash, possibly related to chickenpox nontender the skin lesion was positive for VZV by PCR. 8 Fletcher's palsy 9 difficulty with swallowing secondary to CLL involving the posterior oropharynx and the laryngeal odell based on an ENT evaluation was done [facility]. The patient currently is receiving enteral feeding for nutritional support. Considering the abnormal swallow evaluation, I would suggest that we'll continue enteral feeding via PEG tube. Patient is definitely high risk for aspiration. 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 At this point I recommend complete reliance on the PEG tube for nutritional support. Agree with discharge planning in the next 24 hours. Time with Patient: Less than 30
[2017-02-15] MEDS: LEVOFLOXACIN 750MG-D5W PMX 750 MG in DEXTROSE/WATER 1 150ML.BAG IVPB SCH (13:48)
[2017-02-15 17:43] LABS: Glucose,Whole Blood 105 mg/dL (75-99)
--- NOTE | 2017-02-15 17:45 | P.PN ---
Subjective This is a 76-year-old gentleman with history of lymphoma. Thereafter, apparently was noted to have dysphagia secondary to what appears to be lesions found on the esophagus secondary to lymphoma. The patient was treated at [facility] and had significant aspiration; hence, has been on tube feeding only with strict n.p.o. The patient apparently was recently discharged from [facility] on Thursday after undergoing 2 cycles of chemotherapy. The patient was to follow up with his physician at [facility] as well. 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 The patient was discharged on 2 L supplemental oxygen. However, the patient was brought back to the hospital with difficulty in breathing, was slightly confused. The patient today is requiring 4-6 L of supplemental oxygen with Opti Flow machine. The patient also underwent some workup for encephalopathy, was started on Rocephin and Zithromax due to acute sinusitis. The patient had recent aspiration pneumonia. A CT angiogram of the chest was also done to rule out a pulmonary embolism, which was negative. 02/07/2017 Patient is currently on 4 L supplement oxygen Appears to be in better spirits. States that he feels better in regards to his breathing distress and his eyes also improved No fevers abnormal rhythms are reported by the nursing staff. 02/08/2017 Some degree of aspiration is suspected. The rigid did implement the food coloring to patient's tube feedings however no sputum is noted with the same color Patient again was laid flat last night aspiration precautions were not appropriately followed However patient states that he is feeling somewhat better today 02/09/2017 Is doing well is more awake is able to converse longer His only complaint is abdominal discomfort intermittently Interval history the did pepper picker the service backup today. Over the last few days patient was doing significantly better apparently was able to ambulate with some help plan was to discharge the patient home however patient has been having some discomfort in his abdomen Reglan was added overnight 02/10/2017 Patient continues to have loose stools No fevers chills nausea vomiting. Breathing is stable. However states that that his breathing is significantly improved denies having any fevers chills nausea except for intermittent episodes of abdominal discomfort and nausea that time OBJECTIVE DATA: GENERAL APPEARANCE: At his baseline. No acute distress. LUNGS: Diminished breath sounds. Respiratory crackles good air movement noted. HEART: Irregularly irregular. No murmurs appreciated. ABDOMEN: Soft, nontender. PEG tube is noted. LOWER EXTREMITIES: No edema is noted. NEURO: Moves all 4 extremities. The left-sided facial droop consistent with a Fletcher's palsy is appreciated, currently on 6 L supplemental oxygen. ASSESSMENT AND PLAN: 1. Acute exacerbation of chronic obstructive pulmonary disease with acute on chronic, improving hypoxemic respiratory failure. 2. CLL with secondary hypogammaglobinemia. 3. Paroxysmal atrial fibrillation, currently rate controlled. 4. Hypothyroidism. 5. Recent varicella zoster infection. 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 7. 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 PLAN: Stool studies are negative Continue current medication regimen will likely be ready for discharge in the a.m. 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 Continue monitoring Objective - Vital Signs Vital signs: Vital Signs Temp 98.7 F 02/15/17 15:00 Pulse 92 02/15/17 15:03 Resp 16 02/15/17 15:03 BP 124/60 02/15/17 15:00 Pulse Ox 96 02/15/17 15:00 Intake & Output 02/14/17 02/15/17 02/15/17 18:59 06:59 18:59 Intake Total 1330 3270 2480 Output Total 1954 2100 1204 Balance -624 1170 1276 Weight 88.8 kg 86.5 kg 86.5 kg Intake: Intake, IV Titration 250 Amount Levofloxacin 750Mg-D5w 250 Pmx 750 mg In Dextrose/ Water 1 150ml.bag @ 100 mls/hr IVPB Q24H [facility] Rx#: [id number] Oral 0 Tube Feeding 1080 3150 2480 Other 120 Output: Urine 1950 2100 1200 Stool 4 4 Other: Voiding Method Urinal Urinal Urinal # Voids 3 2 5 # Bowel Movements 3 2 - Labs CBC & Chem 7: 02/13/17 08:56 02/13/17 08:56 Labs: Abnormal Lab Results - Last 24 Hours (Table) 02/14/17 02/15/17 02/15/17 Range/Units 17:44 00:15 06:01 POC Glucose (mg/dL) 111 H 129 H 135 H (75-99) mg/dL 02/15/17 02/15/17 02/15/17 Range/Units 06:30 11:54 17:33 POC Glucose (mg/dL) 121 H 129 H 105 H (75-99) mg/dL Microbiology - Last 24 Hours (Table) 02/12/17 08:34 Stool Culture - Preliminary Stool
[2017-02-15] MEDS: FLUCONAZOLE ORAL SUSP 1,400 MG/35 ML BOTTLE PEG/G-TUBE SCH (20:50)
[2017-02-15 23:59] LABS: Glucose,Whole Blood 111 mg/dL (75-99)
[2017-02-16] MEDS: LORazepam 2 MG/ML SYRINGE IV PRN ×2 (00:25→05:21)
[2017-02-16] MEDS: IPRATROPIUM-ALBUTEROL 3 ML NEB INHALATION SCH ×3 (05:14→12:44)
[2017-02-16 05:58] LABS: Glucose,Whole Blood 115 mg/dL (75-99)
[2017-02-16] MEDS: LEVOTHYROXINE 125 MCG TAB PO SCH (06:07)
--- NOTE | 2017-02-16 06:20 | PN ---
PROGRESS NOTE DATE OF SERVICE: 02/15/2017. REASON FOR FOLLOWUP: Oral thrush. INTERVAL HISTORY: The patient is afebrile. He is breathing comfortably. Denies any chest pain or shortness of breath or cough. Abdominal pain has improved. No nausea, vomiting, or any diarrhea. PHYSICAL EXAMINATION: On examination, blood pressure 112/53 with a pulse of 73, temperature 98. He 96% on room air. General description is an elderly male lying in bed, in no distress. HEENT EXAMINATION: Oral thrush improve. LUNGS: Unlabored breathing. Clear to auscultation. HEART: S1, S2. Regular rate and rhythm. ABDOMEN: Soft, no tenderness. DIAGNOSTIC IMPRESSION AND PLAN: 1. Patient with oral thrush. Continue with Diflucan for another week unless the infection spread. 2. Positive sputum culture with more likely colonization. No need for further therapy for the same. We will continue to monitor closely. MMODL / IJN: [id number] /
[2017-02-16 07:07] LABS: Anisocytosis Moderate; CH 28.2; CHCM 30.7; HCT 34.5 % (39.0-53.0); HDW 2.87; HGB 10.3 gm/dL (13.0-17.5); Hypochromasia Moderate; MCH 27.6 pg (25.0-35.0); MCHC 29.8 g/dL (31.0-37.0); MCV 92.7 fL (80.0-100.0); Macrocytosis Slight; Mean Platelet Volume 8.5; RBC 3.73 m/uL (4.30-5.90); RDW 21.7 % (11.5-15.5); WBC 10.8 k/uL (3.8-10.6)
[2017-02-16] MEDS: FORMOTEROL FUMARATE 20 MCG/2 ML NEBU INHALATION SCH (07:13)
[2017-02-16] MEDS: BUDESONIDE 0.5 MG/2 ML NEBU INHALATION SCH (07:13)
[2017-02-16 07:27] LABS: Anion Gap 3 mmol/L; Blood Urea Nitrogen 15 mg/dL (9-20); Carbon Dioxide 32 mmol/L (22-30); Chloride 96 mmol/L (98-107); Glucose 104 mg/dL (74-99); Non-African American GFR(MDRD) >60 (>60 ml/min/1.73 sqM); Potassium 4.2 mmol/L (3.5-5.1); Sodium 131 mmol/L (137-145)
[2017-02-16] MEDS: PANTOPRAZOLE 40 MG TABLET PO SCH (07:37)
[2017-02-16] MEDS: GENTAMICIN 0.3% OPHTH OINT 3.5 GM TUBE LEFT EYE SCH (07:37)
[2017-02-16] MEDS: metroNIDAZOLE 500 MG TAB PEG/G-TUBE SCH (07:37)
[2017-02-16] MEDS: NYSTATIN 100,000 UNIT/ML SUSP 500,000 UNIT/5 ML CUP PO SCH ×2 (07:37→13:23)
[2017-02-16] MEDS: predniSONE 10 MG TAB PO SCH (07:37)
[2017-02-16] MEDS: DILTIAZEM ORAL 30 MG TAB PO SCH (07:37)
[2017-02-16] MEDS: INSULIN LISPRO (humaLOG) 300 UNIT/3 ML VIAL SQ SCH ×2 (07:38→12:30)
[2017-02-16 12:01] LABS: Glucose,Whole Blood 133 mg/dL (75-99)
[2017-02-16] MEDS: LEVOFLOXACIN 750MG-D5W PMX 750 MG in DEXTROSE/WATER 1 150ML.BAG IVPB SCH (13:23)
[2017-02-16] MEDS: MULTIVITAMINS, THERA 1 EACH TAB PO SCH (13:23)
--- NOTE | 2017-02-16 13:38 | P.PN ---
Subjective Progress note dated 02/16/2017 This is a 76-year-old male who probably will be discharge either today or tomorrow. His pulmonary symptoms have improved significantly. Denies any cough wheezing shortness of breath. Not coughing up any phlegm. Not coughing up any blood. No chest pain or chest discomfort. No nausea vomiting or diarrhea. Objective - Vital Signs Vital signs: Vital Signs Temp 97.4 F L 02/16/17 07:00 Pulse 96 02/16/17 12:57 Resp 20 02/16/17 07:00 BP 106/57 02/16/17 07:00 Pulse Ox 96 02/16/17 05:32 Intake & Output 02/15/17 02/16/17 02/16/17 18:59 06:59 18:59 Intake Total 2480 1135 1230 Output Total 1204 704 300 Balance 1276 431 930 Weight 86.5 kg 86 kg Intake: Oral 0 0 Tube Feeding 2480 1135 1230 Output: Urine 1200 700 300 Stool 4 4 Other: Voiding Method Urinal Urinal Urinal # Voids 5 2 2 # Bowel Movements 2 - Exam No acute distress, oriented 3. HEENT examination is grossly unremarkable. Mucous membranes are moist. No oral lesions. Neck supple. Full range of motion. No adenopathy or thyromegaly. Cardiovascular examination reveals regular rhythm rate. S1-S2 normal. No S3- S4 or murmur. Lungs reveal mostly clear breath sounds. A few scattered mild rhonchi. No wheezes or crackles. Breath sounds are equal bilaterally. Abdomen soft bowel sounds are heard. No masses or tenderness. Extremities are intact. No cyanosis clubbing or edema. Skin without rash. Neurologic examination is prepared nonfocal. - Labs CBC & Chem 7: 02/16/17 06:28 02/16/17 06:28 Labs: Abnormal Lab Results - Last 24 Hours (Table) 02/15/17 02/15/17 02/16/17 Range/Units 17:33 23:56 05:54 WBC (3.8-10.6) k/uL RBC (4.30-5.90) m/uL Hgb (13.0-17.5) gm/dL Hct (39.0-53.0) % MCHC (31.0-37.0) g/dL RDW (11.5-15.5) % Sodium (137-145) mmol/L Chloride (98-107) mmol/L Carbon Dioxide (22-30) mmol/L Glucose (74-99) mg/dL POC Glucose (mg/dL) 105 H 111 H 115 H (75-99) mg/dL Calcium (8.4-10.2) mg/dL 02/16/17 02/16/17 02/16/17 Range/Units 06:28 06:28 12:00 WBC 10.8 H (3.8-10.6) k/uL RBC 3.73 L (4.30-5.90) m/uL Hgb 10.3 L (13.0-17.5) gm/dL Hct 34.5 L (39.0-53.0) % MCHC 29.8 L (31.0-37.0) g/dL RDW 21.7 H (11.5-15.5) % Sodium 131 L (137-145) mmol/L Chloride 96 L (98-107) mmol/L Carbon Dioxide 32 H (22-30) mmol/L Glucose 104 H (74-99) mg/dL POC Glucose (mg/dL) 133 H (75-99) mg/dL Calcium 8.0 L (8.4-10.2) mg/dL Assessment and Plan (1) Acute and chronic respiratory failure Status: Acute (2) Atrial flutter with rapid ventricular response Status: Acute (3) Leukemia Status: Acute (4) Altered mental status Status: Chronic (5) COPD (chronic obstructive pulmonary disease) Status: Chronic (6) Hypoxia Status: Chronic (7) Atrial fibrillation Status: Acute (8) Pneumonia Status: Acute (9) CLL (chronic lymphocytic leukemia) Status: Chronic (10) Chronic bronchitis Status: Chronic (11) Hypothyroidism Status: Chronic Plan: Plan dated 02/16/2017 The patient seemed be doing relatively well. His 's in the room. I speak to her and him. He has extreme difficulty in hearing. Anyway, the plan is to possibly discharge the patient. This will be up to Dr. Barrientos or Dr. Sharif's nurse practitioner. We'll continue to follow. I gave the patient's my card. He will follow-up with either Dr. Baeza or Dr. Pimentel in the office. Time with Patient: Less than 30
--- NOTE | 2017-02-16 14:34 | P.DS ---
Providers Date of admission: 02/03/17 16:46 Attending physician: Brian Barrientos Consults: 02/03/17 16:47 Consult Physician Routine Consulting Provider: Valdez Rucker Consult Reason/Comments: Leukemia Do you want consulting provider notified?: Yes Consult Physician Routine Consulting Provider: Julisa Fischer Consult Reason/Comments: Atrial flutter Do you want consulting provider notified?: Yes 02/03/17 17:57 Consult Physician Urgent Consulting Provider: Anabella Pimentel Consult Reason/Comments: pneumonia Do you want consulting provider notified?: Yes 02/04/17 21:23 Consult Physician Urgent Consulting Provider: Kunal Steel Consult Reason/Comments: mental status change Do you want consulting provider notified?: Yes 02/05/17 12:36 Consult Physician Urgent Consulting Provider: Ilia Quiroz Consult Reason/Comments: dysphagia sinusitis mastoiditis Do you want consulting provider notified?: Yes 02/09/17 13:20 Consult Physician Urgent Consulting Provider: Isabel Mosqueda Consult Reason/Comments: ivig candidateq Do you want consulting provider notified?: Yes 02/13/17 08:12 Consult Physician Urgent Consulting Provider: Mariana Stevens Consult Reason/Comments: Positive occult stool Do you want consulting provider notified?: Yes Primary care physician: Stated None Hospital Course: [id number] gentleman was admitted for COPD exacerbation patient is being discharged on systemic steroids inhalational treatments. Patient was given levofloxacin. Sputum cultures are so far negative and the patient does have oral thrush because of which the infectious disease is recommending flucanazole and no other antibiotics are being recommended at this point of time. And patient had proximal atrial fibrillation rate controlled with the Cardizem which will be switched to long-term long-acting Cardizem. Patient had normal ejection fraction and patient was a valid by cardiology and admission initially recommended anti-coagulation at the time of discharge check with cardiology that not requiring any more anticoagulation at this point of time and patient will be discharged today to follow with Dr. Barrientos as an outpatient. 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 GENERAL APPEARANCE: At his baseline. No acute distress. LUNGS: Diminished breath sounds. Respiratory crackles good air movement noted. HEART: Irregularly irregular. No murmurs appreciated. ABDOMEN: Soft, nontender. PEG tube is noted. LOWER EXTREMITIES: No edema is noted. NEURO: Moves all 4 extremities. The left-sided facial droop consistent with a Fletcher's palsy is appreciated, currently on 6 L supplemental oxygen. ASSESSMENT AND PLAN: 1. Acute exacerbation of chronic obstructive pulmonary disease with acute on chronic, improving hypoxemic respiratory failure. 2. CLL 3. Paroxysmal atrial fibrillation, currently rate controlled.no anti- correlation upon discharge as mentioned above. TSH will be obtained 4. Hypothyroidism. 5. Recent varicella zoster infection. 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 7. 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 Patient Condition at Discharge: Stable Plan - Discharge Summary New Discharge Prescriptions: New Fluconazole Oral Susp [Diflucan Oral Susp] 200 mg PEG/G-TUBE Q24H #7 day Albuterol Inhaler [Ventolin Hfa Inhaler] 1 - 2 puff INHALATION Q6HR PRN #1 inhaler PRN Reason: Shortness Of Breath Or Wheezing Diltiazem HCl [Diltiazem 24Hr ER] 120 mg PO Q24HR #30 cap predniSONE 10 mg PO DAILY #30 tab Tiotropium [place] [Spiriva] 1 cap INHALATION DAILY #1 device Continue Levothyroxine Sodium [Synthroid] 125 mcg PO DAILY Budesonide/Formoterol Fumarate [Symbicort 160-4.5 Mcg Inhaler] 2 puff INHALATION RT-BID Multivitamins, Thera [Multivitamin (formulary)] 1 tab PO DAILY Discharge Medication List Budesonide/Formoterol Fumarate [Symbicort 160-4.5 Mcg Inhaler] 2 puff INHALATION RT-BID 12/21/16 [History] Levothyroxine Sodium [Synthroid] 125 mcg PO DAILY 12/21/16 [History] Multivitamins, Thera [Multivitamin (formulary)] 1 tab PO DAILY 12/21/16 [History ] Albuterol Inhaler [Ventolin Hfa Inhaler] 1 - 2 puff INHALATION Q6HR PRN #1 inhaler 02/16/17 [Rx] Diltiazem HCl [Diltiazem 24Hr ER] 120 mg PO Q24HR #30 cap 02/16/17 [Rx] Fluconazole Oral Susp [Diflucan Oral Susp] 200 mg PEG/G-TUBE Q24H #7 day [Rx] Tiotropium [place] [Spiriva] 1 cap INHALATION DAILY #1 device 02/16/17 [Rx] predniSONE 10 mg PO DAILY #30 tab 02/16/17 [Rx] Follow up Appointment(s)/Referral(s): Brian Barrientos MD [STAFF PHYSICIAN] - 02/26/17 9:30 am Ernie Garcia MD [STAFF PHYSICIAN] - 1 Week (Dr. Garcia's office will be calling patient with an appointment date and time.) Valdez Rucker MD [STAFF PHYSICIAN] - 02/17/17 10:45 am Patient Instructions/Handouts: Diltiazem (By mouth), Albuterol (By breathing), Prednisone (By mouth), Fluconazole (By mouth), Tiotropium (By breathing), Atrial Flutter (DC), Fever in Adults (GEN) Activity/Diet/Wound Care/Special Instructions: Home Care - [facility] Discharge Disposition: HOME WITH HOME HEALTH SERVICES
[2017-02-16 15:13] VITALS: BP 96/56; PULSE 99; RESP 18; TEMP 98.1
--- NOTE | 2017-02-16 20:22 | PN ---
PROGRESS NOTE DATE OF SERVICE: 02/16/2017 REASON FOR FOLLOWUP: Oral thrush and positive sputum culture. INTERVAL HISTORY: The patient is afebrile, has been breathing comfortably. Denies chest pain, shortness of breath or cough. No abdominal pain. No nausea, vomiting. No diarrhea. PHYSICAL EXAMINATION: Blood pressure 96/56 with a pulse of 99, temperature 98.1. General description is an elderly male up in the bed. HEENT EXAMINATION: Oral thrush improved. LUNGS: Unlabored breathing. Clear to auscultation anteriorly. HEART: S1, S2. Regular rate and rhythm. ABDOMEN: Soft. No tenderness. LABS: Hemoglobin 10.3, white count 10.8 with a BUN of 15, creatinine 0.77. DIAGNOSTIC IMPRESSION/PLAN: 1. Patient with a positive sputum culture with enterobacter and MRSA, likely colonization ( ) and the patient did okay without antibiotic therapy. 2. Oral thrush. Continue oral Levaquin for another 7 to 10 days. MMODL / IJN: [id number] /
[2017-02-17] MEDS ORDERED: LEVOFLOXACIN 750 MG TAB PEG/G-TUBE SCH (14:00)
== END 2017-02-16 15:45 | disposition home health service (06) | DRG 190 ==
LOC: EC 11:14 → 6SEL 16:46 → 5MS5E 02-13 01:23
PROVIDERS: ADMIT Family Medicine; ATTEND Family Medicine
DX: J44.0 Chronic obstructive pulmonary disease with (acute) lower respiratory infection (principal); J18.9 Pneumonia, unspecified organism; J96.21 Acute and chronic respiratory failure with hypoxia; B37.0 Candidal stomatitis; C91.10 Chronic lymphocytic leukemia of B-cell type not having achieved remission; D80.1 Nonfamilial hypogammaglobulinemia; I95.9 Hypotension, unspecified; I48.92 Unspecified atrial flutter; I48.0 Paroxysmal atrial fibrillation; J44.1 Chronic obstructive pulmonary disease with (acute) exacerbation; G51.0 Bell's palsy; E03.9 Hypothyroidism, unspecified; R13.10 Dysphagia, unspecified; H91.90 Unspecified hearing loss, unspecified ear; N42.9 Disorder of prostate, unspecified; Z16.24 Resistance to multiple antibiotics; R41.82 Altered mental status, unspecified; J32.4 Chronic pansinusitis; E07.9 Disorder of thyroid, unspecified; H66.003 Acute suppurative otitis media without spontaneous rupture of ear drum, bilateral; B02.9 Zoster without complications; B34.9 Viral infection, unspecified; Z93.1 Gastrostomy status; Z87.01 Personal history of pneumonia (recurrent); Z88.1 Allergy status to other antibiotic agents; Z79.51 Long term (current) use of inhaled steroids; Z79.899 Other long term (current) drug therapy; Z88.0 Allergy status to penicillin; Z81.8 Family history of other mental and behavioral disorders; Z87.891 Personal history of nicotine dependence; Z88.8 Allergy status to other drugs, medicaments and biological substances; Z86.14 Personal history of Methicillin resistant Staphylococcus aureus infection; Z22.322 Carrier or suspected carrier of Methicillin resistant Staphylococcus aureus
CPT/HCPCS: 36415; 70450; 70553; 71010; 71020; 71275; 74020; 74230; 80048; 80053; 81001; 82272; 82550; 82553; 82784; 83036; 83605; 83735; 83880; 84439; 84443; 84484; 85025; 85027; 85610; 85730; 87040; 87045; 87046; 87070; 87077; 87086; 87186; 87205; 87324; 93005; 94640; 94667; 94760; 95819

== ENCOUNTER 2017-02-17 07:41 | Inpatient (IN) | payer MEDICARE ==
[2017-02-17] MEDS ORDERED: SODIUM CHLORIDE 0.9% 1,000 ML IV STA ×3 (07:47→10:41)
[2017-02-17] MEDS: IBUPROFEN 600 MG TAB PO STA ×2 (07:57→08:32)
[2017-02-17] MEDS: ACETAMINOPHEN TAB 500 MG TAB PO STA ×2 (07:57→08:32)
--- NOTE | 2017-02-17 08:04 | ED ---
General Adult HPI - General Chief complaint: Syncope Stated complaint: syncope Time Seen by Provider: 02/17/17 07:47 Source: patient, RN notes reviewed, old records reviewed Mode of arrival: EMS Limitations: no limitations - History of Present Illness Initial comments: This is a 76-year-old male here for evaluation today. This patient presents for evaluation in regards to her syncopal event, weakness. Patient has significant and complicated recent medical history and hospitalization course. Patient has known fever today. Patient's multiple recent hospital admissions and currently feeding tube. Patient has an known CLL, recent diagnosis for follow-up. Patient is nothing by mouth. Patient awoke today got up and had a syncopal event for seizure-like activity. I did resolve at this time. Patient twice states during that event he became tachycardic with a low pulse ox, but he did not stop breathing or lose pulse. - Related Data Home Medications Medication Instructions Recorded Confirmed Budesonide/Formoterol Fumarate 2 puff INHALATION RT-BID 12/21/16 02/17/17 [Symbicort 160-4.5 Mcg Inhaler] Multivitamins, Thera [Multivitamin 1 tab PEG/G-TUBE DAILY 12/21/16 02/17/17 (formulary)] Albuterol Inhaler [Ventolin Hfa 1 - 2 puff INHALATION RT-Q6H PRN 02/17/17 Inhaler] Diltiazem HCl [Diltiazem 24Hr ER] 120 mg PEG/G-TUBE Q24HR 02/17/17 02/17/17 Levothyroxine Sodium [Synthroid] 125 mcg PEG/G-TUBE DAILY 02/17/17 02/17/17 Previous Rx's Medication Instructions Recorded Fluconazole Oral Susp [Diflucan 200 mg PEG/G-TUBE Q24H #7 day 02/16/17 Oral Susp] Tiotropium [place] [Spiriva] 1 cap INHALATION RT-DAILY #1 device 02/17/17 predniSONE See Taper PO DAILY #30 tab 02/17/17 Allergies Allergy/AdvReac Type Severity Reaction Status Date / Time amoxicillin Allergy Rash/Hives Verified 02/17/17 08:46 clavulanic acid Allergy Rash/Hives Verified 02/17/17 08:46 [From Augmentin] rituximab [From Rituxan] Allergy Anaphylaxis Verified 02/17/17 08:46 Review of Systems ROS Statement: Those systems with pertinent positive or pertinent negative responses have been documented in the HPI. ROS Other: All systems not noted in ROS Statement are negative. Past Medical History Past Medical History: Cancer, Pneumonia, Prostate Disorder, Thyroid Disorder Additional Past Medical History / Comment(s): Chronic lymphocytic leukemia, COPD /chronic bronchitis, paroxysmal atrial fibrillation, hypothyroidism, viral skin rash- chickenpox rash, Fletcher's palsy, History of Any Multi-Drug Resistant Organisms: MRSA Date of last positivie culture/infection: 02/05/17 MDRO Source:: Sputum Additional Past Surgical History / Comment(s): THYROID SURGERY Past Anesthesia/Blood Transfusion Reactions: Blood Transfusion Reaction Additional Past Anesthesia/Blood Transfusion Reaction / Comment(s): GAVE BENADRYL AND RAN SLOW. Has had multiple transfusuions and has a reaction every time Past Psychological History: No Psychological Hx Reported Smoking Status: Former smoker Past Alcohol Use History: Unable to Obtain Past Drug Use History: Unable to Obtain - Past Family History Father Family Medical History: Dementia Mother Family Medical History: No Reported History General Exam Limitations: no limitations General appearance: alert, in no apparent distress Head exam: Present: atraumatic, normocephalic, normal inspection Eye exam: Present: normal appearance, PERRL, EOMI. Absent: scleral icterus, conjunctival injection, periorbital swelling ENT exam: Present: normal exam, mucous membranes moist Neck exam: Present: normal inspection. Absent: tenderness, meningismus, lymphadenopathy Respiratory exam: Present: normal lung sounds bilaterally. Absent: respiratory distress, wheezes, rales, rhonchi, stridor Cardiovascular Exam: Present: regular rate, normal rhythm, normal heart sounds. Absent: systolic murmur, diastolic murmur, rubs, gallop, clicks GI/Abdominal exam: Present: soft, normal bowel sounds. Absent: distended, tenderness, guarding, rebound, rigid Extremities exam: Present: normal inspection, full ROM, normal capillary refill. Absent: tenderness, pedal edema, joint swelling, calf tenderness Back exam: Present: normal inspection Neurological exam: Present: alert, oriented X3, CN II-XII intact Psychiatric exam: Present: normal affect, normal mood Skin exam: Present: warm, dry, intact, normal color. Absent: rash Course Vital Signs 02/17/17 02/17/17 02/17/17 07:43 09:02 09:22 Temperature 101.8 F H Pulse Rate 99 94 Respiratory 22 20 22 Rate Blood Pressure 107/62 92/45 O2 Sat by Pulse 92 L 97 Oximetry 02/17/17 02/17/17 02/17/17 09:25 09:42 10:16 Temperature Pulse Rate 89 89 91 Respiratory 18 20 18 Rate Blood Pressure 81/43 98/45 105/64 O2 Sat by Pulse 97 97 97 Oximetry 02/17/17 10:47 Temperature 99.1 F Pulse Rate 84 Respiratory 18 Rate Blood Pressure 99/46 O2 Sat by Pulse 96 Oximetry - Reevaluation(s) Reevaluation #1: 02/17/17 10:44 Patient's blood pressure initially low upon arrival to emergency room Reevaluation #2: 02/17/17 10:44 The patient has no significant change in clinical symptoms, no recurrent episodes of syncope or seizure Reevaluation #3: 02/17/17 10:46 Patient's feeding tube at this time is not working, feeding tubes only been placed for around 3 weeks, we will not change at this time EKG Findings - EKG Comments: EKG Findings:: EKG shows normal sinus rhythm and 96, [place] 138, QRS 84, QTC 4 09/09 Medical Decision Making - Medical Decision Making 76 mallei are for evaluation regarding syncopal event, didn't reverse seizure. thinks seizure but it appears to be that it was likely just a syncopal event. Patient was just discharged from hospital 2 days ago, is having a lot of urine output at home concerning the . Patient himself desires are very weak and tired has no complaints. Will be admitted for rehydration and evaluation regarding syncope. Underlying history of heart and A. fib - Lab Data Result diagrams: 02/17/17 07:50 02/17/17 07:50 Lab Results 02/17/17 02/17/17 02/17/17 Range/Units 07:50 07:50 07:50 WBC 10.3 (3.8-10.6) k/uL RBC 3.86 L (4.30-5.90) m/uL Hgb 10.9 L (13.0-17.5) gm/dL Hct 35.1 L (39.0-53.0) % MCV 91.0 (80.0-100.0) fL MCH 28.2 (25.0-35.0) pg MCHC 31.0 (31.0-37.0) g/dL RDW 20.4 H (11.5-15.5) % Plt Count 213 (150-450) k/uL Neutrophils % (Manual) 63 % Band Neutrophils % 1 % Lymphocytes % (Manual) 34 % Monocytes % (Manual) 3 % Eosinophils % (Manual) 1 % Neutrophils # (Manual) 6.50 (1.3-7.7) k/uL Lymphocytes # (Manual) 3.50 (1.0-4.8) k/uL Monocytes # (Manual) 0.31 (0-1.0) k/uL Eosinophils # (Manual) 0.10 (0-0.7) k/uL Nucleated RBCs 0 (0-0) /100 WBC Hypochromasia Moderate Poikilocytosis (manual Present Anisocytosis Moderate PT (9.0-12.0) sec INR (<1.2) APTT (22.0-30.0) sec Sodium 131 L (137-145) mmol/L Potassium 4.6 (3.5-5.1) mmol/L Chloride 95 L (98-107) mmol/L Carbon Dioxide 31 H (22-30) mmol/L Anion Gap 5 mmol/L BUN 15 (9-20) mg/dL Creatinine 0.88 (0.66-1.25) mg/dL Est GFR (MDRD) Af Amer >60 (>60 ml/min/1.73 sqM) Est GFR (MDRD) Non-Af >60 (>60 ml/min/1.73 sqM) Glucose 94 (74-99) mg/dL Osmolality (280-301) mosm/kg Plasma Lactic Acid Jason (0.7-2.0) mmol/L Calcium 8.2 L (8.4-10.2) mg/dL Phosphorus 2.9 (2.5-4.5) mg/dL Magnesium 1.7 (1.6-2.3) mg/dL Total Bilirubin 0.5 (0.2-1.3) mg/dL AST 19 (17-59) U/L ALT 36 (21-72) U/L Alkaline Phosphatase 63 (38-126) U/L Total Creatine Kinase <20 L (55-170) U/L CK-MB (CK-2) 0.3 (0.0-2.4) ng/mL CK-MB (CK-2) Rel Index Troponin I <0.012 (0.000-0.034) ng/mL Total Protein 4.6 L (6.3-8.2) g/dL Albumin 2.8 L (3.5-5.0) g/dL Urine Color Urine Appearance (Clear) Urine pH (5.0-8.0) Ur Specific [place] (1.001-1.035) Urine Protein (Negative) Urine Glucose (UA) (Negative) Urine Ketones (Negative) Urine Blood (Negative) Urine Nitrite (Negative) Urine Bilirubin (Negative) Urine Urobilinogen (<2.0) mg/dL Ur Leukocyte Esterase (Negative) Urine Osmolality (50-1400) mosm/kg 02/17/17 02/17/17 02/17/17 Range/Units 07:50 07:50 07:50 WBC (3.8-10.6) k/uL RBC (4.30-5.90) m/uL Hgb (13.0-17.5) gm/dL Hct (39.0-53.0) % MCV (80.0-100.0) fL MCH (25.0-35.0) pg MCHC (31.0-37.0) g/dL RDW (11.5-15.5) % Plt Count (150-450) k/uL Neutrophils % (Manual) % Band Neutrophils % % Lymphocytes % (Manual) % Monocytes % (Manual) % Eosinophils % (Manual) % Neutrophils # (Manual) (1.3-7.7) k/uL Lymphocytes # (Manual) (1.0-4.8) k/uL Monocytes # (Manual) (0-1.0) k/uL Eosinophils # (Manual) (0-0.7) k/uL Nucleated RBCs (0-0) /100 WBC Hypochromasia Poikilocytosis (manual Anisocytosis PT 11.8 (9.0-12.0) sec INR 1.2 H (<1.2) APTT 27.6 (22.0-30.0) sec Sodium (137-145) mmol/L Potassium (3.5-5.1) mmol/L Chloride (98-107) mmol/L Carbon Dioxide (22-30) mmol/L Anion Gap mmol/L BUN (9-20) mg/dL Creatinine (0.66-1.25) mg/dL Est GFR (MDRD) Af Amer (>60 ml/min/1.73 sqM) Est GFR (MDRD) Non-Af (>60 ml/min/1.73 sqM) Glucose (74-99) mg/dL Osmolality (280-301) mosm/kg Plasma Lactic Acid Jason 1.2 (0.7-2.0) mmol/L Calcium (8.4-10.2) mg/dL Phosphorus (2.5-4.5) mg/dL Magnesium (1.6-2.3) mg/dL Total Bilirubin (0.2-1.3) mg/dL AST (17-59) U/L ALT (21-72) U/L Alkaline Phosphatase (38-126) U/L Total Creatine Kinase (55-170) U/L CK-MB (CK-2) (0.0-2.4) ng/mL CK-MB (CK-2) Rel Index Troponin I (0.000-0.034) ng/mL Total Protein (6.3-8.2) g/dL Albumin (3.5-5.0) g/dL Urine Color Yellow Urine Appearance Clear (Clear) Urine pH 8.0 (5.0-8.0) Ur Specific [place] 1.010 (1.001-1.035) Urine Protein Trace H (Negative) Urine Glucose (UA) Negative (Negative) Urine Ketones Negative (Negative) Urine Blood Negative (Negative) Urine Nitrite Negative (Negative) Urine Bilirubin Negative (Negative) Urine Urobilinogen <2.0 (<2.0) mg/dL Ur Leukocyte Esterase Negative (Negative) Urine Osmolality (50-1400) mosm/kg 02/17/17 02/17/17 Range/Units 07:50 07:50 WBC (3.8-10.6) k/uL RBC (4.30-5.90) m/uL Hgb (13.0-17.5) gm/dL Hct (39.0-53.0) % MCV (80.0-100.0) fL MCH (25.0-35.0) pg MCHC (31.0-37.0) g/dL RDW (11.5-15.5) % Plt Count (150-450) k/uL Neutrophils % (Manual) % Band Neutrophils % % Lymphocytes % (Manual) % Monocytes % (Manual) % Eosinophils % (Manual) % Neutrophils # (Manual) (1.3-7.7) k/uL Lymphocytes # (Manual) (1.0-4.8) k/uL Monocytes # (Manual) (0-1.0) k/uL Eosinophils # (Manual) (0-0.7) k/uL Nucleated RBCs (0-0) /100 WBC Hypochromasia Poikilocytosis (manual Anisocytosis PT (9.0-12.0) sec INR (<1.2) APTT (22.0-30.0) sec Sodium (137-145) mmol/L Potassium (3.5-5.1) mmol/L Chloride (98-107) mmol/L Carbon Dioxide (22-30) mmol/L Anion Gap mmol/L BUN (9-20) mg/dL Creatinine (0.66-1.25) mg/dL Est GFR (MDRD) Af Amer (>60 ml/min/1.73 sqM) Est GFR (MDRD) Non-Af (>60 ml/min/1.73 sqM) Glucose (74-99) mg/dL Osmolality 273 L (280-301) mosm/kg Plasma Lactic Acid Jason (0.7-2.0) mmol/L Calcium (8.4-10.2) mg/dL Phosphorus (2.5-4.5) mg/dL Magnesium (1.6-2.3) mg/dL Total Bilirubin (0.2-1.3) mg/dL AST (17-59) U/L ALT (21-72) U/L Alkaline Phosphatase (38-126) U/L Total Creatine Kinase (55-170) U/L CK-MB (CK-2) (0.0-2.4) ng/mL CK-MB (CK-2) Rel Index Troponin I (0.000-0.034) ng/mL Total Protein (6.3-8.2) g/dL Albumin (3.5-5.0) g/dL Urine Color Urine Appearance (Clear) Urine pH (5.0-8.0) Ur Specific [place] (1.001-1.035) Urine Protein (Negative) Urine Glucose (UA) (Negative) Urine Ketones (Negative) Urine Blood (Negative) Urine Nitrite (Negative) Urine Bilirubin (Negative) Urine Urobilinogen (<2.0) mg/dL Ur Leukocyte Esterase (Negative) Urine Osmolality 534 (50-1400) mosm/kg - Radiology Data Radiology results: report reviewed (Chest x-ray is negative for acute disease, CT brain negative), image reviewed Disposition Clinical Impression: CLL (chronic lymphocytic leukemia), Altered mental status, Fever, Febrile illness, acute, Syncope Disposition: ADMITTED IP TO THIS HOSP Condition: Fair Referrals: None,Stated [REFERRING] - 1-2 days
[2017-02-17 08:10] LABS: Appearance,Urine Clear (Clear); Bilirubin,Urine Negative (Negative); Glucose,Urine (UA) Negative (Negative); Ketones,Urine Negative (Negative); Leukocyte Esterase,Urine Negative (Negative); Nitrite,Urine Negative (Negative); Protein,Urine Trace (Negative); UA Billing (MACRO vs. MICRO) CHEM; Urobilinogen,Urine <2.0 mg/dL (<2.0)
[2017-02-17 08:13] LABS: Anisocytosis Moderate; Aty Lym Flag Moderate; CH 27.6; CHCM 30.5; HCT 35.1 % (39.0-53.0); HGB 10.9 gm/dL (13.0-17.5); Hypochromasia Moderate; MCH 28.2 pg (25.0-35.0); Mean Platelet Volume 7.8; RBC 3.86 m/uL (4.30-5.90); RDW 20.4 % (11.5-15.5); WBC 10.3 k/uL (3.8-10.6); WBC (Perox) 9.68
[2017-02-17 08:18] LABS: INR 1.2 (<1.2); Partial Thromboplastin Time 27.6 sec (22.0-30.0); Prothrombin Time 11.8 sec (9.0-12.0)
[2017-02-17 08:23] LABS: ALT 36 U/L (21-72); AST 19 U/L (17-59); Alkaline Phosphatase 63 U/L (38-126); Anion Gap 5 mmol/L; Blood Urea Nitrogen 15 mg/dL (9-20); Calcium 8.2 mg/dL (8.4-10.2); Carbon Dioxide 31 mmol/L (22-30); Chloride 95 mmol/L (98-107); Glucose 94 mg/dL (74-99); Magnesium 1.7 mg/dL (1.6-2.3); Non-African American GFR(MDRD) >60 (>60 ml/min/1.73 sqM); Phosphorous 2.9 mg/dL (2.5-4.5); Potassium 4.6 mmol/L (3.5-5.1); Sodium 131 mmol/L (137-145); Total Bilirubin 0.5 mg/dL (0.2-1.3); Total Protein 4.6 g/dL (6.3-8.2)
[2017-02-17] MEDS ORDERED: ACETAMINOPHEN IV (For NPO) 1,000 MG in EMPTY BAG 1 BAG IVPB STA (08:33)
[2017-02-17] MEDS ORDERED: KETOROLAC 30 MG/ML 1 ML VIAL IVP STA (08:34)
[2017-02-17 08:38] LABS: Add Differential Manual Differential
[2017-02-17 08:42] LABS: Nucleated Red Blood Cells 0 /100 WBC (0-0)
[2017-02-17 08:43] LABS: Creatine Kinase <20 U/L (55-170)
[2017-02-17 08:46] LABS: Band Neutrophils % 1 %; Total Cells Counted 200
[2017-02-17 08:56] LABS: Creatine Kinase MB 0.3 ng/mL (0.0-2.4); Troponin I <0.012 ng/mL (0.000-0.034)
--- NOTE | 2017-02-17 09:07 | XR ---
EXAMINATION TYPE: XR chest 2V DATE OF EXAM: 02/17/2017 COMPARISON: Chest x-ray February 13, 2017. CTA chest February 05, 2017. HISTORY: History of ALL presents with weakness. TECHNIQUE: Frontal and lateral views of the chest are obtained. FINDINGS: Osseous structures are intact. Cardiac silhouette size is upper limits of normal with [place] left pleural effusion and associated left basilar atelectasis and/or infiltrate. Right lung is c lear. Trachea now appears within normal limits. Percutaneous feeding tube in stomach epigastric regio n is redemonstrated. IMPRESSION: There is new small left pleural effusion and associated left basilar atelectasis and/or infiltrate .
[2017-02-17] MEDS ORDERED: SODIUM CHLORIDE 0.9% 500 ML IV STA (09:32)
--- NOTE | 2017-02-17 10:34 | CT ---
EXAMINATION TYPE: CT brain wo con DATE OF EXAM: 02/17/2017 COMPARISON: NONE HISTORY: Syncopal episode today CT DLP: 2398 mGycm Automated exposure control for dose reduction was used. FINDINGS: There are changes of chronic sinusitis. Exam limited due to motion artifact. There is no midline shif t or displacement. There is generalized degenerative change. 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 Soft tissue nodul e seen along the right parietal convexity within the subcutaneous tissues. Atherosclerotic change of the vasculature noted. IMPRESSION: 1. LIMITED EXAM DUE TO MOTION ARTIFACT DEMONSTRATES NO OBVIOUS ACUTE INTRACRANIAL HEMORRHAGE OR MASS EFFECT. 2. CORRELATE FOR EXTENSIVE CHRONIC SINUSITIS
[2017-02-17] MEDS ORDERED: ACETAMINOPHEN IV (For NPO) 1,000 MG in EMPTY BAG 1 BAG IVPB PRN (10:42)
[2017-02-17] MEDS ORDERED: IPRATROPIUM-ALBUTEROL 3 ML NEB INHALATION STA (11:24)
[2017-02-17] MEDS ORDERED: PNEUMONIA PROTOCOL UTILIZED 1 EACH MISC PO PRN (11:31)
[2017-02-17 12:53] LABS: Potassium,Urine Random 43.7 mmol/L
[2017-02-17] MEDS ORDERED: PIPERACILLIN-TAZOBACTAM 3.375 GM in DEXTROSE/WATER 1 50ML.BAG IVPB STA (14:08)
[2017-02-17] MEDS: SODIUM CHLORIDE 0.9% 1,000 ML IV SCH ×2 (16:29→22:12)
--- NOTE | 2017-02-17 17:46 | P.HPIM ---
History of Present Illness 76-year-old male readmission for febrile illness. History of CLL. Dysphasia with motility problems gastric feeding tube in place. Recent history of Fletcher's palsy with left-sided facial weakness. Recent herpes zoster rash to right side of upper trunk. Patient has chronic sinusitis. Patient had a syncopal episode on the way to the bathroom today. reporting seizure activity Review of Systems Constitutional: Reports fever, Reports lethargy, Reports weakness Ears: bilateral: decreased hearing Respiratory: Reports cough Neurological: Reports syncope Endocrine: Reports polyuria Past Medical History Past Medical History: Atrial Fibrillation, Cancer, COPD, Neurologic Disorder, Osteoarthritis (OA), Pneumonia, Prostate Disorder, Thyroid Disorder Additional Past Medical History / Comment(s): Pt recently admitted to [facility] on with exacerbation COPD. 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 History of Any Multi-Drug Resistant Organisms: None Reported, MRSA Date of last positivie culture/infection: 02/05/17 MDRO Source:: Sputum Past Surgical History: Tonsillectomy Additional Past Surgical History / Comment(s): Peg tube insertion, colonoscopies /polypectomies, rectal fissure repair, belateral knee arthroscopies, THYROID SURGERY Past Anesthesia/Blood Transfusion Reactions: Blood Transfusion Reaction Additional Past Anesthesia/Blood Transfusion Reaction / Comment(s): GAVE BENADRYL AND RAN SLOW. Has had multiple transfusuions and has a reaction every time Smoking Status: Former smoker - Past Family History Father Family Medical History: Dementia Mother Family Medical History: No Reported History Medications and Allergies Home Medications Medication Instructions Recorded Confirmed Type Budesonide/Formoterol Fumarate 2 puff INHALATION RT-BID 12/21/16 02/17/17 History [Symbicort 160-4.5 Mcg Inhaler] Multivitamins, Thera [Multivitamin 1 tab PEG/G-TUBE DAILY 12/21/16 02/17/17 History (formulary)] Fluconazole Oral Susp [Diflucan 200 mg PEG/G-TUBE Q24H #7 day 02/16/17 02/17/17 Rx Oral Susp] Albuterol Inhaler [Ventolin Hfa 1 - 2 puff INHALATION RT-Q6H PRN 02/17/17 History Inhaler] Diltiazem HCl [Diltiazem 24Hr ER] 120 mg PEG/G-TUBE Q24HR 02/17/17 02/17/17 History Levothyroxine Sodium [Synthroid] 125 mcg PEG/G-TUBE DAILY 02/17/17 02/17/17 History Tiotropium [place] [Spiriva] 1 cap INHALATION RT-DAILY #1 device 02/17/17 Rx predniSONE See Taper PO DAILY #30 tab 02/17/17 02/17/17 Rx Allergies Allergy/AdvReac Type Severity Reaction Status Date / Time amoxicillin Allergy Rash/Hives Verified 02/17/17 08:46 clavulanic acid Allergy Rash/Hives Verified 02/17/17 08:46 [From Augmentin] rituximab [From Rituxan] Allergy Anaphylaxis Verified 02/17/17 08:46 Physical Exam Vitals: Vital Signs Temp Pulse Pulse Resp BP BP Pulse Ox 02/17/17 15:00 97.7 F 80 18 94/50 94 L 02/17/17 14:12 98.4 F 81 18 99/49 97 02/17/17 11:51 91 02/17/17 11:37 89 02/17/17 10:47 99.1 F 84 18 99/46 96 02/17/17 10:16 91 18 105/64 97 02/17/17 09:42 89 20 98/45 97 02/17/17 09:25 89 18 81/43 97 02/17/17 09:22 22 02/17/17 09:02 94 20 92/45 97 02/17/17 07:43 101.8 F H 99 22 107/62 92 L Intake and Output 02/17/17 02/17/17 02/17/17 06:59 14:59 22:59 Other: Voiding Method Urinal Weight 86.183 kg Patient Weight 02/18/17 06:59 Weight 86.183 kg - Constitutional General appearance: mild distress - EENT Left-sided facial droop secondary bolus palsy ENT: hard of hearing Ears: bilateral: normal - Neck Neck: normal ROM - Respiratory Respiratory: bilateral: diminished - Cardiovascular Rhythm: regular - Gastrointestinal Gastric feeding tube in place General gastrointestinal: soft - Integumentary Integumentary: normal - Neurologic Aside aphasia drip secondary to Fletcher's palsy - Musculoskeletal Musculoskeletal: generalized weakness - Psychiatric Psychiatric: A&O x's 3, appropriate affect, intact judgment & insight Results CBC & Chem 7: 02/17/17 07:50 02/17/17 07:50 Labs: Abnormal Lab Results - Last 24 Hours (Table) 02/17/17 02/17/17 02/17/17 Range/Units 07:50 07:50 07:50 RBC 3.86 L (4.30-5.90) m/uL Hgb 10.9 L (13.0-17.5) gm/dL Hct 35.1 L (39.0-53.0) % RDW 20.4 H (11.5-15.5) % INR (<1.2) Sodium 131 L (137-145) mmol/L Chloride 95 L (98-107) mmol/L Carbon Dioxide 31 H (22-30) mmol/L Osmolality (280-301) mosm/kg Calcium 8.2 L (8.4-10.2) mg/dL Total Creatine Kinase <20 L (55-170) U/L Total Protein 4.6 L (6.3-8.2) g/dL Albumin 2.8 L (3.5-5.0) g/dL Urine Protein (Negative) Ur Random Sodium (30-90) mmol/L 02/17/17 02/17/17 02/17/17 Range/Units 07:50 07:50 07:50 RBC (4.30-5.90) m/uL Hgb (13.0-17.5) gm/dL Hct (39.0-53.0) % RDW (11.5-15.5) % INR 1.2 H (<1.2) Sodium (137-145) mmol/L Chloride (98-107) mmol/L Carbon Dioxide (22-30) mmol/L Osmolality 273 L (280-301) mosm/kg Calcium (8.4-10.2) mg/dL Total Creatine Kinase (55-170) U/L Total Protein (6.3-8.2) g/dL Albumin (3.5-5.0) g/dL Urine Protein Trace H (Negative) Ur Random Sodium (30-90) mmol/L 02/17/17 Range/Units 07:50 RBC (4.30-5.90) m/uL Hgb (13.0-17.5) gm/dL Hct (39.0-53.0) % RDW (11.5-15.5) % INR (<1.2) Sodium (137-145) mmol/L Chloride (98-107) mmol/L Carbon Dioxide (22-30) mmol/L Osmolality (280-301) mosm/kg Calcium (8.4-10.2) mg/dL Total Creatine Kinase (55-170) U/L Total Protein (6.3-8.2) g/dL Albumin (3.5-5.0) g/dL Urine Protein (Negative) Ur Random Sodium 177 H (30-90) mmol/L Microbiology - Last 24 Hours (Table) 02/17/17 12:02 Gram Stain - Final Sputum Sputum Culture - Preliminary 02/17/17 07:50 Urine Culture - Preliminary Urine,Voided Chest x-ray: report reviewed CT Scan - head: report reviewed Thrombosis Risk Factor Assmnt - Choose All That Apply Any of the Below Risk Factors Present?: Yes Each Factor Represents 1 point: Abnormal pulmonary function (COPD), Obesity ( BMI >25) Other Risk Factors: Yes Each Risk Factor Represents 2 Points: Malignancy Each Risk Factor Represents 3 Points: Age 75 years or older Other congenital or acquired thrombophilia - If yes, enter type in comment: No Thrombosis Risk Factor Assessment Total Risk Factor Score: 7 Thrombosis Risk Factor Assessment Level: High Risk Assessment and Plan Plan: Assessment Febrile illness Pneumonia Chronic COPD Hypothyroidism Chronic lymphocytic leukemia Gastric feeding tube in place secondary to dysphagia motility problem Syncope Acute renal failure Fletcher's palsy left-sided facial droop History of herpes zoster healing rash right side of trunk Chronic sinusitis Altered mental status secondary to hypotensive events Protein deficiencies secondary to inability to swallow food Plan Consultation with oncology regarding CLL Cardiology consultation regarding syncope Dr. Juan Manuel BURKS regarding feeding tube dysfunction Nephrology acute renal failure Zosyn and initiated
[2017-02-17] MEDS: IPRATROPIUM-ALBUTEROL 3 ML NEB INHALATION PRN (19:21)
[2017-02-17] MEDS: PIPERACILLIN-TAZOBACTAM 3.375 GM in DEXTROSE/WATER 1 50ML.BAG IVPB SCH (22:11)
--- NOTE | 2017-02-17 22:47 | P.CONS ---
History of Present Illness - Reason for Consult Consult date: 02/17/17 - History of Present Illness The patient is a 76-year-old male history of CLL, diagnosed several years ago. He was admitted to the hospital in 12/22, with weakness, as well as skin rash due to shingles. He was subsequently admitted to [facility] with difficulty swallowing , herpes zoster and Fletcher's palsy. He had a PEG tube put in few days prior to his last admission to this hospital and was started on tube feedings and then discharged. He was recently hospitalized because he was feeling increasingly short of breath , even at rest. He was found to be in A. fib with RVR. I have seen him for nausea. This has improved after adjustments were made in his feeding schedule. Prior to discharge, he was receiving 45 mL/h and his free water was decreased from around 75 every 3 hours to around 50 and this has The residuals 20 mL or less and his nausea seems to have improved. The patient was discharged yesterday but was brought back to the emergency room because of febrile illness and syncope and his reported seizure activity. We are asked to see him regarding feeding tube issues. Review of Systems Constitutional: Had fever, no chills, sweats, weight gain, or loss. HEENT: Negative for migraines, blurred vision or loss, earaches, drainage, tinnitus. Has previous esophageal dysphagia requiring feeding tube as mentioned above. Cardiac: No chest pains or palpitations. Respiratory: Negative for shortness of breath, hemoptysis, cough, or sputum production. Gastrointestinal: See HPI for pertinent findings. Genitourinary: Negative for hematuria, urgency, frequency, polyuria or dysuria. Musculoskeletal: Negative for muscle aches, swelling, arthritis, and arthralgias. Neurologic: See PI above. Endocrine: Negative for thyroid problems. Skin: Negative for rash or itching. Psychiatric: Negative history for depression and anxiety. Past Medical History Past Medical History: Atrial Fibrillation, Cancer, COPD, Neurologic Disorder, Osteoarthritis (OA), Pneumonia, Prostate Disorder, Thyroid Disorder Additional Past Medical History / Comment(s): Pt recently admitted to [facility] on with exacerbation COPD. 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 History of Any Multi-Drug Resistant Organisms: None Reported, MRSA Year Discovered:: 02/05/17 MDRO Source:: Sputum Past Surgical History: Tonsillectomy Additional Past Surgical History / Comment(s): Peg tube insertion, colonoscopies /polypectomies, rectal fissure repair, belateral knee arthroscopies, THYROID SURGERY Past Anesthesia/Blood Transfusion Reactions: Blood Transfusion Reaction Additional Past Anesthesia/Blood Transfusion Reaction / Comm: GAVE BENADRYL AND RAN SLOW. Has had multiple transfusuions and has a reaction every time Smoking Status: Former smoker - Past Family History Father Family Medical History: Dementia Mother Family Medical History: No Reported History Medications and Allergies Home Medications Medication Instructions Recorded Confirmed Type Budesonide/Formoterol Fumarate 2 puff INHALATION RT-BID 12/21/16 02/17/17 History [Symbicort 160-4.5 Mcg Inhaler] Multivitamins, Thera [Multivitamin 1 tab PEG/G-TUBE DAILY 12/21/16 02/17/17 History (formulary)] Fluconazole Oral Susp [Diflucan 200 mg PEG/G-TUBE Q24H #7 day 02/16/17 02/17/17 Rx Oral Susp] Albuterol Inhaler [Ventolin Hfa 1 - 2 puff INHALATION RT-Q6H PRN 02/17/17 History Inhaler] Diltiazem HCl [Diltiazem 24Hr ER] 120 mg PEG/G-TUBE Q24HR 02/17/17 02/17/17 History Levothyroxine Sodium [Synthroid] 125 mcg PEG/G-TUBE DAILY 02/17/17 02/17/17 History Tiotropium [place] [Spiriva] 1 cap INHALATION RT-DAILY #1 device 02/17/17 Rx predniSONE See Taper PO DAILY #30 tab 02/17/17 02/17/17 Rx Allergies Allergy/AdvReac Type Severity Reaction Status Date / Time amoxicillin Allergy Rash/Hives Verified 02/17/17 08:46 clavulanic acid Allergy Rash/Hives Verified 02/17/17 08:46 [From Augmentin] rituximab [From Rituxan] Allergy Anaphylaxis Verified 02/17/17 08:46 Physical Exam Vitals: Vital Signs Temp Pulse Pulse Resp BP BP Pulse Ox 02/17/17 15:00 97.7 F 80 18 94/50 94 L 02/17/17 14:12 98.4 F 81 18 99/49 97 02/17/17 11:51 91 02/17/17 11:37 89 02/17/17 10:47 99.1 F 84 18 99/46 96 02/17/17 10:16 91 18 105/64 97 02/17/17 09:42 89 20 98/45 97 02/17/17 09:25 89 18 81/43 97 02/17/17 09:22 22 02/17/17 09:02 94 20 92/45 97 02/17/17 07:43 101.8 F H 99 22 107/62 92 L Intake and Output 02/17/17 02/17/17 02/17/17 06:59 14:59 22:59 Other: Voiding Method Urinal Weight 86.183 kg Patient Weight 02/18/17 06:59 Weight 86.183 kg General appearance: The patient is alert, hard of hearing, in no acute distress. HET: Head is normocephalic and atraumatic. Pupils are equal and reactive. Sclerae anicteric. Neck: Supple without lymphadenopathy. Trachea midline. Heart: No abnormal sounds murmurs or friction rubs. Lungs: Basal crackles, no wheezes are heard. Abdomen: Soft, bowel sounds present. No peritoneal signs. No palpable organomegaly or masses. Feeding tube in place with no evidence of cellulitis. Extremities: Normal skin color and turgor. No cyanosis, rash, ulceration or clubbing. No edema. Radial and pedal pulses are 2/4 bilaterally. Neurological: No focal deficits. Strength and sensation are grossly intact. Results CBC & Chem 7: 02/17/17 07:50 02/17/17 07:50 Labs: Abnormal Lab Results - Last 24 Hours (Table) 02/17/17 02/17/17 02/17/17 Range/Units 07:50 07:50 07:50 RBC 3.86 L (4.30-5.90) m/uL Hgb 10.9 L (13.0-17.5) gm/dL Hct 35.1 L (39.0-53.0) % RDW 20.4 H (11.5-15.5) % INR (<1.2) Sodium 131 L (137-145) mmol/L Chloride 95 L (98-107) mmol/L Carbon Dioxide 31 H (22-30) mmol/L Osmolality (280-301) mosm/kg Calcium 8.2 L (8.4-10.2) mg/dL Total Creatine Kinase <20 L (55-170) U/L Total Protein 4.6 L (6.3-8.2) g/dL Albumin 2.8 L (3.5-5.0) g/dL Urine Protein (Negative) Ur Random Sodium (30-90) mmol/L 02/17/17 02/17/17 02/17/17 Range/Units 07:50 07:50 07:50 RBC (4.30-5.90) m/uL Hgb (13.0-17.5) gm/dL Hct (39.0-53.0) % RDW (11.5-15.5) % INR 1.2 H (<1.2) Sodium (137-145) mmol/L Chloride (98-107) mmol/L Carbon Dioxide (22-30) mmol/L Osmolality 273 L (280-301) mosm/kg Calcium (8.4-10.2) mg/dL Total Creatine Kinase (55-170) U/L Total Protein (6.3-8.2) g/dL Albumin (3.5-5.0) g/dL Urine Protein Trace H (Negative) Ur Random Sodium (30-90) mmol/L 02/17/17 Range/Units 07:50 RBC (4.30-5.90) m/uL Hgb (13.0-17.5) gm/dL Hct (39.0-53.0) % RDW (11.5-15.5) % INR (<1.2) Sodium (137-145) mmol/L Chloride (98-107) mmol/L Carbon Dioxide (22-30) mmol/L Osmolality (280-301) mosm/kg Calcium (8.4-10.2) mg/dL Total Creatine Kinase (55-170) U/L Total Protein (6.3-8.2) g/dL Albumin (3.5-5.0) g/dL Urine Protein (Negative) Ur Random Sodium 177 H (30-90) mmol/L Microbiology - Last 24 Hours (Table) 02/17/17 12:02 Gram Stain - Final Sputum Sputum Culture - Preliminary 02/17/17 07:50 Urine Culture - Preliminary Urine,Voided Assessment and Plan Plan: 76-year-old male with pre-esophageal dysphagia secondary to infiltrating lymphoma/CLL is readmitted because of syncope and seizures. Will evaluate the placement of his tube and try to contact him back to his feeding pump. We will make any necessary adjustment in the placement of the tube or in the feeding schedule. Will follow with you closely.
[2017-02-18 00:10] LABS: Glucose,Whole Blood 84 mg/dL (75-99)
[2017-02-18] MEDS: PIPERACILLIN-TAZOBACTAM 3.375 GM in DEXTROSE/WATER 1 50ML.BAG IVPB SCH ×4 (04:45→23:31)
[2017-02-18 06:24] LABS: Glucose,Whole Blood 73 mg/dL (75-99)
--- NOTE | 2017-02-18 07:41 | XR ---
EXAMINATION TYPE: XR chest 2V DATE OF EXAM: 02/18/2017 COMPARISON: 02/17/2017 HISTORY: Shortness of breath TECHNIQUE: Frontal and lateral views of the chest are obtained. FINDINGS: Scattered senescent parenchymal changes noted. Hyperinflation compatible with COPD. There is left lower lobe infiltrate with small effusion. Heart size is stable. Mediastinal structures are stable and grossly unremarkable. No evidence for hilar prominence. Degenerative changes dorsal spine. IMPRESSION: 1. There is left lower lobe infiltrate with small effusion.
[2017-02-18 08:23] LABS: ALT 43 U/L (21-72); AST 29 U/L (17-59); Alkaline Phosphatase 52 U/L (38-126); Anion Gap 7 mmol/L; Blood Urea Nitrogen 16 mg/dL (9-20); Calcium 7.7 mg/dL (8.4-10.2); Carbon Dioxide 24 mmol/L (22-30); Chloride 101 mmol/L (98-107); Glucose 74 mg/dL (74-99); Non-African American GFR(MDRD) >60 (>60 ml/min/1.73 sqM); Potassium 4.5 mmol/L (3.5-5.1); Sodium 132 mmol/L (137-145); Total Bilirubin 0.5 mg/dL (0.2-1.3); Total Protein 4.1 g/dL (6.3-8.2)
[2017-02-18] MEDS: SODIUM CHLORIDE 0.9% 1,000 ML IV SCH ×2 (08:45→18:09)
[2017-02-18 08:55] LABS: Anisocytosis Moderate; Aty Lym Flag Slight; CH 27.5; CHCM 29.7; HCT 33.7 % (39.0-53.0); HDW 2.92; HGB 10.2 gm/dL (13.0-17.5); Hypochromasia Marked; MCH 28.4 pg (25.0-35.0); MCHC 30.4 g/dL (31.0-37.0); MCV 93.4 fL (80.0-100.0); Macrocytosis Slight; Mean Platelet Volume 7.6; RBC 3.61 m/uL (4.30-5.90); RDW 20.3 % (11.5-15.5); WBC 7.2 k/uL (3.8-10.6); WBC (Perox) 7.39
[2017-02-18] MEDS: ENOXAPARIN 40 MG/0.4 ML SYRINGE SQ SCH (09:28)
[2017-02-18 10:22] LABS: Add Differential Manual Differential
[2017-02-18 10:29] LABS: Nucleated Red Blood Cells 0 /100 WBC (0-0); Total Cells Counted 100
[2017-02-18 10:40] LABS: Manual Review Performed
[2017-02-18] MEDS: ACETAMINOPHEN IV (For NPO) 1,000 MG in EMPTY BAG 1 BAG IVPB PRN ×2 (11:25→22:10)
--- NOTE | 2017-02-18 11:36 | P.PN ---
Subjective Principal diagnosis: Patient from febrile again this morning. PEG tube patent. Addressed by using gastroenterology. Discussed anemia with gastroenterology awaiting consultations from cardiology infectious disease and nephrology Objective - Vital Signs Vital signs: Vital Signs Temp 99.1 F 02/18/17 08:00 Pulse 99 02/18/17 08:00 Resp 14 02/18/17 08:00 BP 127/57 02/18/17 08:00 Pulse Ox 96 02/18/17 08:00 Intake & Output 02/17/17 02/18/17 02/18/17 18:59 06:59 18:59 Intake Total 450 Output Total 400 250 Balance 50 -250 Weight 86.183 kg Intake: Intake, IV Titration 450 Amount ACETAMINOPHEN IV (For NPO 400 ) 1,000 mg In Empty Bag 1 bag @ 400 mls/hr IVPB Q6HR PRN Rx#:[id number] Piperacillin-Tazobactam 3 50 .375 gm In Dextrose/Water 1 50ml.bag @ 12.5 mls/hr IVPB ONCE STA Rx#: [id number] Output: Urine 400 250 Other: Voiding Method Urinal Urinal Urinal # Bowel Movements 1 - Constitutional General appearance: Present: obese - EENT EENT Comment(s): Left-sided facial droop secondary Fletcher's palsy ENT: Present: hard of hearing Ears: bilateral: normal - Neck Neck: Present: normal ROM - Respiratory Details: Noted thick white sputum Respiratory: bilateral: diminished - Cardiovascular Rhythm: regularly irregular - Gastrointestinal General gastrointestinal: Present: soft - Integumentary Integumentary: Present: normal - Neurologic Neurologic Comment(s): Left-sided facial droop - Musculoskeletal Musculoskeletal: Present: generalized weakness - Psychiatric Psychiatric: Present: appropriate affect, intact judgment & insight - Labs CBC & Chem 7: 02/18/17 07:26 02/18/17 07:26 Labs: Abnormal Lab Results - Last 24 Hours (Table) 02/17/17 02/18/17 02/18/17 Range/Units 07:50 06:22 07:26 RBC 3.61 L (4.30-5.90) m/uL Hgb 10.2 L (13.0-17.5) gm/dL Hct 33.7 L (39.0-53.0) % MCHC 30.4 L (31.0-37.0) g/dL RDW 20.3 H (11.5-15.5) % Sodium (137-145) mmol/L POC Glucose (mg/dL) 73 L (75-99) mg/dL Calcium (8.4-10.2) mg/dL Total Protein (6.3-8.2) g/dL Albumin (3.5-5.0) g/dL Ur Random Sodium 177 H (30-90) mmol/L 02/18/17 Range/Units 07:26 RBC (4.30-5.90) m/uL Hgb (13.0-17.5) gm/dL Hct (39.0-53.0) % MCHC (31.0-37.0) g/dL RDW (11.5-15.5) % Sodium 132 L (137-145) mmol/L POC Glucose (mg/dL) (75-99) mg/dL Calcium 7.7 L (8.4-10.2) mg/dL Total Protein 4.1 L (6.3-8.2) g/dL Albumin 2.4 L (3.5-5.0) g/dL Ur Random Sodium (30-90) mmol/L Microbiology - Last 24 Hours (Table) 02/17/17 07:50 Blood Culture - Preliminary Blood No Growth after 24 hours 02/17/17 12:02 Gram Stain - Final Sputum Sputum Culture - Final 02/17/17 07:50 Urine Culture - Preliminary Urine,Voided - Imaging and Cardiology Chest x-ray: report reviewed Assessment and Plan Plan: Assessment Pneumonia left lower lobe Syncope Febrile illness Chronic COPD Hypothyroidism Chronic lymphocytic leukemia PEG tube in place secondary to dysphagia motility problems Fletcher's palsy left-sided weakness Acute renal failure Herpes zoster Chronic sinusitis Altered mental status secondary to hypotensive event Plan Continue consultation with gastroenterology regarding feeding tube Infectious disease regarding febrile illness Nephrology regarding possible SIADH Cardiology consultation regarding syncope Continue consultation with oncology Continues with Zosy Tube feedings to resume
--- NOTE | 2017-02-18 11:48 | P.PN ---
Subjective Principal diagnosis: PEG tube malfunction at bedside this morning reports unable to flush PEG tube. No evidence of purulence erythema around PEG site. T max 102 last night. Objective - Vital Signs Vital signs: Vital Signs Temp 99.1 F 02/18/17 08:00 Pulse 99 02/18/17 08:00 Resp 14 02/18/17 08:00 BP 127/57 02/18/17 08:00 Pulse Ox 96 02/18/17 08:00 Intake & Output 02/17/17 02/18/17 02/18/17 18:59 06:59 18:59 Intake Total 450 Output Total 400 250 Balance 50 -250 Weight 86.183 kg Intake: Intake, IV Titration 450 Amount ACETAMINOPHEN IV (For NPO 400 ) 1,000 mg In Empty Bag 1 bag @ 400 mls/hr IVPB Q6HR PRN Rx#:[id number] Piperacillin-Tazobactam 3 50 .375 gm In Dextrose/Water 1 50ml.bag @ 12.5 mls/hr IVPB ONCE STA Rx#: [id number] Output: Urine 400 250 Other: Voiding Method Urinal Urinal Urinal # Bowel Movements 1 - Exam General appearance: The patient is alert, oriented, in no acute distress. HET: Head is normocephalic and atraumatic. Pupils are equal and reactive. Oropharynx is clear without lesions. Neck: Supple without lymphadenopathy. Trachea midline. Heart: S1 S2. Regular rate and rhythm. Lungs: No crackles or wheezes are heard. Abdomen: Soft, PEG tube without erythema or drainage or bleeding, nondistended with bowel sounds. No peritoneal signs. No palpable organomegaly or masses. Extremities: Normal skin color and turgor. No cyanosis, rash, ulceration, clubbing, or edema. Radial and pedal pulses are 2/4 bilaterally. Neurological: No focal deficits. Strength and sensation are grossly intact. - Labs CBC & Chem 7: 02/18/17 07:26 02/18/17 07:26 Labs: Abnormal Lab Results - Last 24 Hours (Table) 02/17/17 02/18/17 02/18/17 Range/Units 07:50 06:22 07:26 RBC 3.61 L (4.30-5.90) m/uL Hgb 10.2 L (13.0-17.5) gm/dL Hct 33.7 L (39.0-53.0) % MCHC 30.4 L (31.0-37.0) g/dL RDW 20.3 H (11.5-15.5) % Sodium (137-145) mmol/L POC Glucose (mg/dL) 73 L (75-99) mg/dL Calcium (8.4-10.2) mg/dL Total Protein (6.3-8.2) g/dL Albumin (3.5-5.0) g/dL Ur Random Sodium 177 H (30-90) mmol/L 02/18/17 Range/Units 07:26 RBC (4.30-5.90) m/uL Hgb (13.0-17.5) gm/dL Hct (39.0-53.0) % MCHC (31.0-37.0) g/dL RDW (11.5-15.5) % Sodium 132 L (137-145) mmol/L POC Glucose (mg/dL) (75-99) mg/dL Calcium 7.7 L (8.4-10.2) mg/dL Total Protein 4.1 L (6.3-8.2) g/dL Albumin 2.4 L (3.5-5.0) g/dL Ur Random Sodium (30-90) mmol/L Microbiology - Last 24 Hours (Table) 02/17/17 07:50 Blood Culture - Preliminary Blood No Growth after 24 hours 02/17/17 12:02 Gram Stain - Final Sputum Sputum Culture - Final 02/17/17 07:50 Urine Culture - Preliminary Urine,Voided Assessment and Plan Plan: Impression: 1. 76-year-old male with previous esophageal dysphagia secondary to infiltrating lymphoma [facility] readmitted because of syncope and seizures with fever. 2. Malfunctioning PEG tube unable to flush resolved. PEG site at this time does not appear to be infected. 3. Anemia without overt symptoms of GI bleeding with positive Hemoccult 2016 last colonoscopy 9 years ago recent EGD 3 weeks ago at [facility]. Plan: 1. PEG tubing was massaged and flushed successfully. Restart tube feeds as previously directed. Recent Hemoccult positivity discussed with at bedside presently patient has no overt signs of GI bleeding such as hematemesis hematochezia or melena. Hemoglobin remains fairly stable and recently received chemotherapy about 3 weeks ago. It isn't agreement with spouse that inpatient colonoscopy will not be pursued at this time. Optimize medical condition. agrees with plan of care with follow-up in the outpatient setting for reevaluation after discharge. We'll continue to follow with you. Assessment and plan a care discussed with Dr. Aponte
[2017-02-18] MEDS ORDERED: FLUCONAZOLE ORAL SUSP 1,400 MG/35 ML BOTTLE PEG/G-TUBE SCH (12:00)
[2017-02-18 12:19] LABS: Glucose,Whole Blood 78 mg/dL (75-99)
--- NOTE | 2017-02-18 13:07 | P.CRDCN ---
History of Present Illness Consult date: 02/18/17 History of present illness: This is a 76-year-old male. Past medical history significant for CLL, COPD, dysphagia with PEG tube, paroxysmal atrial fibrillation, herpes zoster Fletcher's palsy. Patient presents with complaints of syncopal episode at home. states the patient had been up and down all night Thursday night with frequent urination. He stood up from a sitting position to urinate again and he fell to the ground. She states he was unresponsive and she thought he had . The patient states the last thing he remembers is standing up to use the urinal and then he was on the ground. He denies chest pain, shortness of breath , dizziness, palpitations prior to this event. He states last night while he was in bed he felt an episode of heart "fluttering" that resolved on its own. He was not on telemetry at that time. It should be noted the patient was also febrile at that time 102F. Blood pressure this morning 127/57 with heart rate of 99. The pt was first diagnosed with atrial fibrillation in December and was placed on IV cardizem and heparin. He was subsequently transferred to [facility] and no oral anticoagulation was initiated upon discharge. His oncology team here was consulted and they have advised from their standpoint he is a safe candidate at this time. EKG done shows normal sinus mechanism, rate of 96 beats per minute with no T- wave abnormality. Hemoglobin 10.2, platelets 178, potassium 4.5, magnesium 1.7, BUN 16 and creatinine 0.8. Troponins negative 1. Most recent echo dated 12/22/2016 indicates mild concentric left ventricular hypertrophy, preserved left ventricular function with an ejection fraction of 50 -55%, mildly dilated left atrium and mild MR. Review of Systems Extensive review of systems performed, negative except mentioned in HPI. Past Medical History Past Medical History: Atrial Fibrillation, Cancer, COPD, Neurologic Disorder, Osteoarthritis (OA), Pneumonia, Prostate Disorder, Thyroid Disorder Additional Past Medical History / Comment(s): Pt recently admitted to [facility] on with exacerbation COPD. 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 History of Any Multi-Drug Resistant Organisms: MRSA Date of last positivie culture/infection: 02/05/17 MDRO Source:: Sputum Past Surgical History: Tonsillectomy Additional Past Surgical History / Comment(s): Peg tube insertion, colonoscopies /polypectomies, rectal fissure repair, belateral knee arthroscopies, THYROID SURGERY Past Anesthesia/Blood Transfusion Reactions: Blood Transfusion Reaction Additional Past Anesthesia/Blood Transfusion Reaction / Comment(s): GAVE BENADRYL AND RAN SLOW. Has had multiple transfusuions and has a reaction every time Smoking Status: Former smoker - Past Family History Father Family Medical History: Dementia Mother Family Medical History: No Reported History Medications and Allergies Home Medications Medication Instructions Recorded Confirmed Type Budesonide/Formoterol Fumarate 2 puff INHALATION RT-BID 12/21/16 02/17/17 History [Symbicort 160-4.5 Mcg Inhaler] Multivitamins, Thera [Multivitamin 1 tab PEG/G-TUBE DAILY 12/21/16 02/17/17 History (formulary)] Fluconazole Oral Susp [Diflucan 200 mg PEG/G-TUBE Q24H #7 day 02/16/17 02/17/17 Rx Oral Susp] Albuterol Inhaler [Ventolin Hfa 1 - 2 puff INHALATION RT-Q6H PRN 02/17/17 History Inhaler] Diltiazem HCl [Diltiazem 24Hr ER] 120 mg PEG/G-TUBE Q24HR 02/17/17 02/17/17 History Levothyroxine Sodium [Synthroid] 125 mcg PEG/G-TUBE DAILY 02/17/17 02/17/17 History Tiotropium [place] [Spiriva] 1 cap INHALATION RT-DAILY #1 device 02/17/17 Rx predniSONE See Taper PO DAILY #30 tab 02/17/17 02/17/17 Rx Allergies Allergy/AdvReac Type Severity Reaction Status Date / Time amoxicillin Allergy Rash/Hives Verified 02/17/17 08:46 clavulanic acid Allergy Rash/Hives Verified 02/17/17 08:46 [From Augmentin] rituximab [From Rituxan] Allergy Anaphylaxis Verified 02/17/17 08:46 Physical Exam Vitals: Vital Signs Temp Pulse Pulse Resp BP BP Pulse Ox 02/18/17 12:00 99.1 F 02/18/17 08:00 99.1 F 99 14 127/57 96 02/18/17 02:00 99.1 F 02/18/17 00:20 101 F H 02/17/17 23:40 101.3 F H 02/17/17 23:00 100 16 123/62 94 L 02/17/17 22:40 102 F H 02/17/17 15:00 97.7 F 80 18 94/50 94 L 02/17/17 14:12 98.4 F 81 18 99/49 97 Intake and Output 02/17/17 02/18/17 02/18/17 22:59 06:59 14:59 Intake Total 450 Output Total 400 250 Balance -400 450 -250 Intake: Intake, IV Titration 450 Amount ACETAMINOPHEN IV (For NPO 400 ) 1,000 mg In Empty Bag 1 bag @ 400 mls/hr IVPB Q6HR PRN Rx#:[id number] Piperacillin-Tazobactam 3 50 .375 gm In Dextrose/Water 1 50ml.bag @ 12.5 mls/hr IVPB ONCE STA Rx#: [id number] Output: Urine 400 250 Other: Voiding Method Urinal Urinal Urinal # Bowel Movements 1 Weight 86.183 kg Patient Weight 02/19/17 06:59 Weight 86.183 kg GENERAL: This is a 76-year-old male in no apparent distress at the time of my examination. HEENT: Head is atraumatic, normocephalic. Left sided facial droop. Sclerae anicteric. Conjunctivae are clear. Mucous membranes of the mouth are moist. Neck is supple. There is no jugular venous distention. No carotid bruit is heard. LUNGS: Clear to auscultation no wheezes, rales or rhonchi. No chest wall tenderness is noted on palpation or with deep breathing. HEART: Regular rate and rhythm without murmurs, rubs or gallops. S1 and S2 heard. ABDOMEN: Soft, nontender. Bowel sounds are heard. No organomegaly noted. EXTREMITIES: 2+ peripheral pulses with no evidence of peripheral edema and no calf tenderness noted. NEUROLOGIC: Patient is awake, alert and oriented x3. Results 02/18/17 07:26 02/18/17 07:26 Cardiac Enzymes 02/18/17 Range/Units 07:26 AST 29 (17-59) U/L CBC 02/18/17 Range/Units 07:26 WBC 7.2 (3.8-10.6) k/uL RBC 3.61 L (4.30-5.90) m/uL Hgb 10.2 L (13.0-17.5) gm/dL Hct 33.7 L (39.0-53.0) % Plt Count 178 (150-450) k/uL Comprehensive Metabolic Panel 02/18/17 Range/Units 07:26 Sodium 132 L (137-145) mmol/L Potassium 4.5 (3.5-5.1) mmol/L Chloride 101 (98-107) mmol/L Carbon Dioxide 24 (22-30) mmol/L BUN 16 (9-20) mg/dL Creatinine 0.80 (0.66-1.25) mg/dL Glucose 74 (74-99) mg/dL Calcium 7.7 L (8.4-10.2) mg/dL AST 29 (17-59) U/L ALT 43 (21-72) U/L Alkaline Phosphatase 52 (38-126) U/L Total Protein 4.1 L (6.3-8.2) g/dL Albumin 2.4 L (3.5-5.0) g/dL Current Medications Generic Name Dose Route Start Last Admin Trade Name Freq PRN Reason Stop Dose Admin Albuterol/Ipratropium 3 ml 02/17/17 11:31 02/17/17 19:21 Duoneb 0.5 Mg-3 Mg/3 Ml Soln INHALATION 3 ml RT-Q4H PRN Administration shortness of breath Budesonide/Formoterol Fumarate 2 puff 02/18/17 20:00 Symbicort 160-4.5 Mcg Inhaler INHALATION RT-BID [facility] Enoxaparin Sodium 40 mg 02/18/17 09:00 02/18/17 09:28 Lovenox SQ Not Given DAILY [facility] Fluconazole 200 mg 02/18/17 12:00 Diflucan PEG/G-TUBE Q24H [facility] Piperacillin/Tazobactam/ 50 mls @ 12.5 mls/hr 02/17/17 20:00 02/18/17 12:08 Dextrose 3.375 gm/ IV Solution IVPB 12.5 mls/hr Q8H WIL[facility] Administration Sodium Chloride 1,000 mls @ 100 mls/hr 02/17/17 11:45 02/18/17 08:45 Saline 0.9% IV 100 mls/hr .Q10H WILFRID Administration Acetaminophen 1,000 mg/ IV 100 mls @ 400 mls/hr 02/18/17 10:49 02/18/17 11:25 Solution IVPB 02/19/17 06:14 400 mls/hr Q6HR PRN Administration Fever Levothyroxine Sodium 125 mcg 02/19/17 06:30 Synthroid PEG/G-TUBE DAILY@0630 WILFRID Miscellaneous Information 1 each 02/17/17 11:31 Pneumonia Protocol Utilized PO ONCE PRN Per Protocol Multivitamins 1 each 02/19/17 12:00 Theragran PEG/G-TUBE DAILY@1200 WILFRID Intake and Output 02/17/17 02/18/17 02/18/17 22:59 06:59 14:59 Intake Total 450 Output Total 400 250 Balance -400 450 -250 Intake: Intake, IV Titration 450 Amount ACETAMINOPHEN IV (For NPO 400 ) 1,000 mg In Empty Bag 1 bag @ 400 mls/hr IVPB Q6HR PRN Rx#:[id number] Piperacillin-Tazobactam 3 50 .375 gm In Dextrose/Water 1 50ml.bag @ 12.5 mls/hr IVPB ONCE STA Rx#: [id number] Output: Urine 400 250 Other: Voiding Method Urinal Urinal Urinal # Bowel Movements 1 Weight 86.183 kg Patient Weight 02/19/17 06:59 Weight 86.183 kg 02/18/17 07:26 02/18/17 07:26 EKG Interpretations (text) Admission EKG indicates normal sinus mechanism. Telemetry has just been ordered. Assessment and Plan Plan: ASSESSMENT 1. Paroxysmal atrial fibrillation 2. Syncopal episode 3. CLL 4. COPD 5. No malignant lesions on the vocal cords and tongue, patient currently undergoing chemotherapy PLAN Long-term oral anticoagulation has been discussed with the and the patient. They both agree that the benefit outweighs the risk. We will consult with his oncology team whether this is appropriate from their standpoint. Otherwise we will continue cardizem at previously prescribed dose. Thank you kindly for this consultation. Further recommendations will be based upon clinical course. Nurse Practitioner note has been reviewed, I agree with a documented findings and plan of care. Patient was seen and examined.
--- NOTE | 2017-02-18 15:35 | P.NPCON ---
History of Present Illness - Reason for Consult hyponatremia - History of Present Illness Reason for consultation: Hyponatremia History of present illness: Patient is a 76-year-old male seen in renal consultation for hyponatremia. His sodium level was 131 on admission and is up to 132 this morning. He is currently maintained on normal saline running at 100 mL an hour. Patient was initially admitted in December 2016 which shingles and subsequently transferred to [facility]. He was noted to have dysphagia due to tumor infiltration and underwent a PEG tube placement. He was recently admitted with pneumonia and was discharged just a few days ago. He presented back to the hospital with syncope and a fever of 101F. He is currently being treated for pneumonia. He also is maintained on tube feedings. He did receive a 1 L bolus in the ER and his blood pressure was a little bit low in the systolic 90s. He is most recent blood pressure was in the systolic 120s. He did receive a dose of Toradol in the ER. Cultures are negative so far. GFR is at baseline. Urinalysis is quite benign. Vital signs are stable. General: The patient appeared well nourished and normally developed. HEENT: Head exam is unremarkable. Neck is without jugular venous distension. LUNGS: Lungs are clear to auscultation and percussion. Breath sounds decreased. HEART: Rate and Rhythm are regular. First and second heart sounds normal. No murmurs, rubs or gallops. ABDOMEN: Abdominal exam reveals normal bowel sounds. Non-tender and non- distended. No evidence of peritonitis. EXTREMITITES: No clubbing, cyanosis, or edema. Past Medical History Past Medical History: Atrial Fibrillation, Cancer, COPD, Neurologic Disorder, Osteoarthritis (OA), Pneumonia, Prostate Disorder, Thyroid Disorder Additional Past Medical History / Comment(s): Pt recently admitted to [facility] on with exacerbation COPD. 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 History of Any Multi-Drug Resistant Organisms: MRSA Date of last positivie culture/infection: 02/05/17 MDRO Source:: Sputum Past Surgical History: Tonsillectomy Additional Past Surgical History / Comment(s): Peg tube insertion, colonoscopies /polypectomies, rectal fissure repair, belateral knee arthroscopies, THYROID SURGERY Past Anesthesia/Blood Transfusion Reactions: Blood Transfusion Reaction Additional Past Anesthesia/Blood Transfusion Reaction / Comment(s): GAVE BENADRYL AND RAN SLOW. Has had multiple transfusuions and has a reaction every time Smoking Status: Former smoker - Past Family History Father Family Medical History: Dementia Mother Family Medical History: No Reported History Medications and Allergies Home Medications Medication Instructions Recorded Confirmed Type Budesonide/Formoterol Fumarate 2 puff INHALATION RT-BID 12/21/16 02/17/17 History [Symbicort 160-4.5 Mcg Inhaler] Multivitamins, Thera [Multivitamin 1 tab PEG/G-TUBE DAILY 12/21/16 02/17/17 History (formulary)] Fluconazole Oral Susp [Diflucan 200 mg PEG/G-TUBE Q24H #7 day 02/16/17 02/17/17 Rx Oral Susp] Albuterol Inhaler [Ventolin Hfa 1 - 2 puff INHALATION RT-Q6H PRN 02/17/17 History Inhaler] Diltiazem HCl [Diltiazem 24Hr ER] 120 mg PEG/G-TUBE Q24HR 02/17/17 02/17/17 History Levothyroxine Sodium [Synthroid] 125 mcg PEG/G-TUBE DAILY 02/17/17 02/17/17 History Tiotropium [place] [Spiriva] 1 cap INHALATION RT-DAILY #1 device 02/17/17 Rx predniSONE See Taper PO DAILY #30 tab 02/17/17 02/17/17 Rx Allergies Allergy/AdvReac Type Severity Reaction Status Date / Time amoxicillin Allergy Rash/Hives Verified 02/17/17 08:46 clavulanic acid Allergy Rash/Hives Verified 02/17/17 08:46 [From Augmentin] rituximab [From Rituxan] Allergy Anaphylaxis Verified 02/17/17 08:46 Physical Exam Vitals: Vital Signs Temp Pulse Resp BP Pulse Ox 02/18/17 15:00 98.4 F 89 18 111/59 93 L 02/18/17 12:00 99.1 F 02/18/17 08:00 99.1 F 99 14 127/57 96 02/18/17 02:00 99.1 F 02/18/17 00:20 101 F H 02/17/17 23:40 101.3 F H 02/17/17 23:00 100 16 123/62 94 L 02/17/17 22:40 102 F H Intake and Output 02/18/17 02/18/17 02/18/17 06:59 14:59 22:59 Intake Total 450 Output Total 250 Balance 450 -250 Intake: Intake, IV Titration 450 Amount ACETAMINOPHEN IV (For NPO 400 ) 1,000 mg In Empty Bag 1 bag @ 400 mls/hr IVPB Q6HR PRN Rx#:[id number] Piperacillin-Tazobactam 3 50 .375 gm In Dextrose/Water 1 50ml.bag @ 12.5 mls/hr IVPB ONCE STA Rx#: [id number] Output: Urine 250 Other: Voiding Method Urinal Urinal Weight 86.183 kg Patient Weight 02/19/17 06:59 Weight 86.183 kg Results - Lab Results Most recent lab results Calcium 7.7 mg/dL (8.4-10.2) L 02/18/17 07:26 Phosphorus 2.9 mg/dL (2.5-4.5) 02/17/17 07:50 Magnesium 1.7 mg/dL (1.6-2.3) 02/17/17 07:50 02/18/17 07:26 02/18/17 07:26 Assessment and Plan Plan: Assessment: #1. Hyponatremia. It appears patient was slightly hypokalemic initially as he wasn't receiving his tube feeds and was also a little hypotensive. Now appears euvolemic. Most recent sodium level is 132 as of this morning. 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 #2. History of dysphagia status post PEG tube placement maintained on tube feeds. #3. Pneumonia maintain on antibiotics. Plan: I will decrease rate of normal saline to 50 mL an hour. Maintain tube feeds. Check postvoid residual to make sure there is no underlying urinary retention. Follow-up cultures. Check urine sodium, serum and urine osmolality. Repeat electrolytes in the morning. Thank you for the consultation. I will continue to follow the patient with you during his hospital stay.
[2017-02-18 16:22] LABS: INR 1.3 (<1.2); Prothrombin Time 12.8 sec (9.0-12.0)
[2017-02-18] MEDS: DILTIAZEM ORAL 30 MG TAB PO SCH ×2 (18:09→22:08)
[2017-02-18] MEDS: WARFARIN 5 MG TAB PO SCH (18:09)
[2017-02-18 18:21] LABS: Glucose,Whole Blood 95 mg/dL (75-99)
--- NOTE | 2017-02-18 19:12 | P.CONS ---
History of Present Illness - Reason for Consult Consult date: 02/18/17 - History of Present Illness The patient is a 76-year-old gentleman, well known to our service. He has a known history of CLL, diagnosed some years ago, which appeared to be stage 0. He has been followed by the same by Dr. Rucker with no indication for treatment till his most recent office visit in 10/22. The patient was admitted to the hospital in 12/22, with weakness, as well as skin rash due to shingles. He was subsequently admitted to [facility] with difficulty in swallowing and Fletcher's palsy. He had a PEG tube put in few days ago and started on tube feeds. He was found to have a mass at the base of the tongue, with biopsy positive for SLL/CLL. He did receive Rituxan and patient. The patient was admitted earlier this month, which shortness of breath related to A. fib with RVR, CHF and COPD exacerbation. He was seen during that admission, with plans to follow-up with Dr. Rucker in the outpatient setting, to resume treatment. The patient was discharged 2 days ago. At home, he continued to complain of cough, with expectoration of yellow sputum. He apparently passed out when going to the bathroom, and was brought back to the ER. In the ER he was found to be febrile with a temperature of 101.9. Chest x-ray is suspicious for pneumonia. CT of the brain did not show any evidence of stroke, mass effect or hemorrhage. Patient was therefore admitted for further management. The consult was placed for further evaluation and recommendations. Review of Systems Constitutional: Reports fatigue, Reports fever, Reports weight loss Eyes: denies blurred vision, denies pain Ears: bilateral: decreased hearing, deny: ear discharge, earache, tinnitus Ears, nose, mouth and throat: Reports dysphagia, Reports nose pain, Denies headache, Denies sore throat Cardiovascular: Reports dyspnea on exertion, Reports palpitations, Reports rapid heart beat, Reports shortness of breath, Reports syncope Respiratory: Reports cough with sputum, Reports dyspnea, Reports excessive sputum Gastrointestinal: Reports as per HPI Genitourinary: Reports urinary frequency Musculoskeletal: Reports muscle weakness Integumentary: Denies pruritus, Denies rash Neurological: Reports weakness Psychiatric: Denies anxiety, Denies depression Endocrine: Reports fatigue Hematologic/Lymphatic: Reports as per HPI Past Medical History Past Medical History: Atrial Fibrillation, Cancer, COPD, Neurologic Disorder, Osteoarthritis (OA), Pneumonia, Prostate Disorder, Thyroid Disorder Additional Past Medical History / Comment(s): Pt recently admitted to [facility] on with exacerbation COPD. Other hx: Chronic lymphocytic leukemia-has had 2 doses chemo therapy at 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 History of Any Multi-Drug Resistant Organisms: MRSA Year Discovered:: 02/05/17 MDRO Source:: Sputum Past Surgical History: Tonsillectomy Additional Past Surgical History / Comment(s): Peg tube insertion, colonoscopies /polypectomies, rectal fissure repair, belateral knee arthroscopies, THYROID SURGERY Past Anesthesia/Blood Transfusion Reactions: Blood Transfusion Reaction Additional Past Anesthesia/Blood Transfusion Reaction / Comm: GAVE BENADRYL AND RAN SLOW. Has had multiple transfusuions and has a reaction every time Smoking Status: Former smoker - Past Family History Father Family Medical History: Dementia Mother Family Medical History: No Reported History Medications and Allergies Home Medications Medication Instructions Recorded Confirmed Type Budesonide/Formoterol Fumarate 2 puff INHALATION RT-BID 12/21/16 02/17/17 History [Symbicort 160-4.5 Mcg Inhaler] Multivitamins, Thera [Multivitamin 1 tab PEG/G-TUBE DAILY 12/21/16 02/17/17 History (formulary)] Fluconazole Oral Susp [Diflucan 200 mg PEG/G-TUBE Q24H #7 day 02/16/17 02/17/17 Rx Oral Susp] Albuterol Inhaler [Ventolin Hfa 1 - 2 puff INHALATION RT-Q6H PRN 02/17/17 History Inhaler] Diltiazem HCl [Diltiazem 24Hr ER] 120 mg PEG/G-TUBE Q24HR 02/17/17 02/17/17 History Levothyroxine Sodium [Synthroid] 125 mcg PEG/G-TUBE DAILY 02/17/17 02/17/17 History Tiotropium [place] [Spiriva] 1 cap INHALATION RT-DAILY #1 device 02/17/17 Rx predniSONE See Taper PO DAILY #30 tab 02/17/17 02/17/17 Rx Allergies Allergy/AdvReac Type Severity Reaction Status Date / Time amoxicillin Allergy Rash/Hives Verified 02/17/17 08:46 clavulanic acid Allergy Rash/Hives Verified 02/17/17 08:46 [From Augmentin] rituximab [From Rituxan] Allergy Anaphylaxis Verified 02/17/17 08:46 Physical Exam Vitals: Vital Signs Temp Pulse Resp BP Pulse Ox 02/18/17 15:00 98.4 F 89 18 111/59 93 L 02/18/17 12:30 98.8 F 02/18/17 12:00 99.1 F 02/18/17 11:00 100.9 F H 02/18/17 08:00 99.1 F 99 14 127/57 96 02/18/17 02:00 99.1 F 02/18/17 00:20 101 F H 02/17/17 23:40 101.3 F H 02/17/17 23:00 100 16 123/62 94 L 02/17/17 22:40 102 F H Intake and Output 02/18/17 02/18/17 02/18/17 06:59 14:59 22:59 Intake Total 450 90 Output Total 250 Balance 450 -250 90 Intake: Intake, IV Titration 450 Amount ACETAMINOPHEN IV (For NPO 400 ) 1,000 mg In Empty Bag 1 bag @ 400 mls/hr IVPB Q6HR PRN Rx#:[id number] Piperacillin-Tazobactam 3 50 .375 gm In Dextrose/Water 1 50ml.bag @ 12.5 mls/hr IVPB ONCE STA Rx#: [id number] Tube Feeding 90 Output: Urine 250 Other: Voiding Method Urinal Urinal Urinal Weight 86.183 kg Patient Weight 02/19/17 06:59 Weight 86.183 kg - Constitutional General appearance: no acute distress - EENT Eyes: EOMI, PERRLA ENT: normal oropharynx - Neck Neck: no lymphadenopathy - Respiratory Respiratory: left: rales - Cardiovascular Rhythm: irregularly irregular Heart sounds: normal: S1, S2 - Gastrointestinal PEG site appears clean General gastrointestinal: normal bowel sounds, soft - Integumentary Integumentary: normal - Neurologic Neurologic: focal deficits (Hard of hearing. Left facial droop) - Musculoskeletal Musculoskeletal: generalized weakness, strength equal bilaterally - Psychiatric Psychiatric: A&O x's 3, appropriate affect Results CBC & Chem 7: 02/18/17 07:26 02/18/17 07:26 Labs: Abnormal Lab Results - Last 24 Hours (Table) 02/18/17 02/18/17 02/18/17 Range/Units 06:22 07:26 07:26 RBC 3.61 L (4.30-5.90) m/uL Hgb 10.2 L (13.0-17.5) gm/dL Hct 33.7 L (39.0-53.0) % MCHC 30.4 L (31.0-37.0) g/dL RDW 20.3 H (11.5-15.5) % PT (9.0-12.0) sec INR (<1.2) Sodium 132 L (137-145) mmol/L POC Glucose (mg/dL) 73 L (75-99) mg/dL Osmolality (280-301) mosm/kg Calcium 7.7 L (8.4-10.2) mg/dL Total Protein 4.1 L (6.3-8.2) g/dL Albumin 2.4 L (3.5-5.0) g/dL 02/18/17 02/18/17 Range/Units 07:26 15:59 RBC (4.30-5.90) m/uL Hgb (13.0-17.5) gm/dL Hct (39.0-53.0) % MCHC (31.0-37.0) g/dL RDW (11.5-15.5) % PT 12.8 H (9.0-12.0) sec INR 1.3 H (<1.2) Sodium (137-145) mmol/L POC Glucose (mg/dL) (75-99) mg/dL Osmolality 274 L (280-301) mosm/kg Calcium (8.4-10.2) mg/dL Total Protein (6.3-8.2) g/dL Albumin (3.5-5.0) g/dL Microbiology - Last 24 Hours (Table) 02/17/17 14:53 Blood Culture - Preliminary Blood No Growth after 24 hours 02/17/17 14:36 Blood Culture - Preliminary Blood No Growth after 24 hours 02/17/17 07:50 Urine Culture - Final Urine,Voided 02/17/17 07:50 Blood Culture - Preliminary Blood No Growth after 24 hours 02/17/17 12:02 Gram Stain - Final Sputum Sputum Culture - Final Chest x-ray: report reviewed CT scan - chest: report reviewed Assessment and Plan (1) Sepsis Narrative/Plan: The patient appears to be presenting with sepsis. He has had a cough with expectoration, and significant fever is noted. Sputum was noted to be quite purulent. Cultures are positive for MRSA. The patient also had syncope as described. He is currently feeling better with hydration. His continue on IV antibiotics. Given his underlying illness, as well as recent treatment, I will check immunoglobulin levels to check for hypogammaglobinemia. If this is present, he would likely benefit from IVIG infusions. Continue antibiotics per the admitting service. Status: Acute (2) CLL (chronic lymphocytic leukemia) Narrative/Plan: The patient had presented with stage 0 CLL, and not require treatment until recently. 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 He was started on treatment because of his symptoms. WBC and differential are normal. No other adenopathy. He was supposed to be following up in the office in the near future to resume treatment. He will advise, that would not be able to start lymphoma therapy, until his acute situation resolves. Appointment in the office to be rescheduled for after discharge. Continue to monitor counts while in the hospital. Status: Chronic
[2017-02-18] MEDS: SYMBICORT 160-4.5 MCG INHALER INHALATION SCH (19:37)
[2017-02-18] MEDS ORDERED: IV VANCOMYCIN PER PHARMACY 1 EACH MISC MISCELLANE PRN (20:15)
--- NOTE | 2017-02-18 21:51 | P.CONS ---
History of Present Illness - Reason for Consult Consult date: 02/18/17 - Chief Complaint Weakness in syncope - History of Present Illness 76-year-old male with a known history of chronic lymphocytic leukemia with not been any therapy up to this December. However that point in time he presented to Hospital feeling poorly. Had severe sore throat difficulty with chewing and swallowing. He was not feeling well. He was hospitalized at that time and treated with antibiotic therapy with concerns to pneumonia and high- grade fever. He also developed an extensive skin rash. Testing at our facility did confirm varicella-zoster which he had treatment for from beginning of his stay in December. Because of his ongoing difficulties with swallowing he was transferred to his oncologist at [facility]. 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 And he was initiated to Rituxan therapy. 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 He is not clear when his next treatment would be due. Last IgG level was 400. At this time the patient is still somewhat miserable. He is unaware of the events that occurred that led him to the hospital. He apparently was unconscious when the found him and she was concerned that there was seizure. He constantly was brought to Hospital by EMS. At this time he is sitting up right somewhat comfortable. He is oriented and able to converse although he is quite hard of hearing He was having significant pains earlier and is now more comfortable. His significant abdominal discomforts have improved. He does cough and has had fever does not relate to significant sputum production or hemoptysis. He over does feel poorly. Review of Systems 76-year-old male who has multiple medical troubles feels quite poorly. He is worried that he needs to improve to continue his treatments. HEENT:Denies headache or acute visual change. Denies sinus or mouth discomforts. Denies neck stiffness or pain. Denies significant oral cavity pain. Denies difficulty on swallowing. Lungs: Denies significant shortness of breath, cough, sputum production, or hemoptysis. Cardiovascular: Denies significant shortness of breath, chest pain, chest wall pain, orthopnea, dyspnea on exertion, syncope Gastrointestinal:Denies nausea, vomiting, diarrhea, constipation, hematemesis, melena, hematochezia. No no significant change of bowel habit noticed. Musculoskeletal: denies significant myalgias or arthralgias. No new joint swelling. Denies new back pain. Skin: Herpetic lesion to his lips are improving Neuro: Denies headache or visual change. Denies any new onset weakness or difficulty with ambulation. Suffered a fall without proven seizure before admission. Significant difficulty with hearing not new Psychiatric:Denies anxiety or depression. Endocrine: Significant fatigue and weight loss continue Past Medical History Past Medical History: Atrial Fibrillation, Cancer, COPD, Neurologic Disorder, Osteoarthritis (OA), Pneumonia, Prostate Disorder, Thyroid Disorder Additional Past Medical History / Comment(s): Pt recently admitted to [facility] on with exacerbation COPD. 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 History of Any Multi-Drug Resistant Organisms: MRSA Year Discovered:: 02/05/17 MDRO Source:: Sputum Past Surgical History: Tonsillectomy Additional Past Surgical History / Comment(s): Peg tube insertion, colonoscopies /polypectomies, rectal fissure repair, belateral knee arthroscopies, THYROID SURGERY Past Anesthesia/Blood Transfusion Reactions: Blood Transfusion Reaction Additional Past Anesthesia/Blood Transfusion Reaction / Comm: GAVE BENADRYL AND RAN SLOW. Has had multiple transfusuions and has a reaction every time Smoking Status: Former smoker Additional Past Alcohol Use History / Comment(s): Patient was only a smoker for 5-6 years in the 1960s. No marijuana or street drug use. He and his winter in [place] and return to [place] for the oates. They have a terrier without any other animal exposures he currently lives on the [address]. Patient does normal yardwork but no extensive gardening or other hobbies. He has been too ill this summer to really participate in outdoor activities - Past Family History Father Family Medical History: Dementia Mother Family Medical History: No Reported History Medications and Allergies Home Medications and Allergies Comment(s): Current Medications Albuterol/Ipratropium (Duoneb 0.5 Mg-3 Mg/3 Ml Soln) 3 ml INHALATION RT-Q4H PRN PRN Reason: shortness of breath Last Admin: 02/17/17 19:21 Dose: 3 ml Budesonide/Formoterol Fumarate (Symbicort 160-4.5 Mcg Inhaler) 2 puff INHALATION RT-BID [facility] Last Admin: 02/18/17 19:37 Dose: Not Given Diltiazem HCl (Cardizem Oral) 30 mg PO QID [facility] Last Admin: 02/18/17 18:09 Dose: 30 mg Enoxaparin Sodium (Lovenox) 40 mg SQ DAILY [facility] Last Admin: 02/18/17 09:28 Dose: Not Given Sodium Chloride (Saline 0.9%) 1,000 mls @ 50 mls/hr IV .Q20H [facility] Last Admin: 02/18/17 18:09 Dose: 50 mls/hr Acetaminophen 1,000 mg/ IV (Solution) 100 mls @ 400 mls/hr IVPB Q6HR PRN PRN Reason: Fever Stop: 02/19/17 06:14 Last Admin: 02/18/17 11:25 Dose: 400 mls/hr Meropenem 1 gm/ Sodium (Chloride) 100 mls @ 100 mls/hr IVPB Q8HR [facility] Vancomycin HCl 1,500 mg/ (Sodium Chloride) 250 mls @ 125 mls/hr IVPB Q12HR [facility] Levothyroxine Sodium (Synthroid) 125 mcg PEG/G-TUBE DAILY@0630 [facility] Miscellaneous Information (Pneumonia Protocol Utilized) 1 each PO ONCE PRN PRN Reason: Per Protocol Multivitamins (Theragran) 1 each PEG/G-TUBE DAILY@1200 [facility] Warfarin Sodium (Coumadin) 5 mg PO DAILY@1800 [facility] Last Admin: 02/18/17 18:09 Dose: 5 mg Home Medications Medication Instructions Recorded Confirmed Type Budesonide/Formoterol Fumarate 2 puff INHALATION RT-BID 12/21/16 02/17/17 History [Symbicort 160-4.5 Mcg Inhaler] Multivitamins, Thera [Multivitamin 1 tab PEG/G-TUBE DAILY 12/21/16 02/17/17 History (formulary)] Fluconazole Oral Susp [Diflucan 200 mg PEG/G-TUBE Q24H #7 day 02/16/17 02/17/17 Rx Oral Susp] Albuterol Inhaler [Ventolin Hfa 1 - 2 puff INHALATION RT-Q6H PRN 02/17/17 History Inhaler] Diltiazem HCl [Diltiazem 24Hr ER] 120 mg PEG/G-TUBE Q24HR 02/17/17 02/17/17 History Levothyroxine Sodium [Synthroid] 125 mcg PEG/G-TUBE DAILY 02/17/17 02/17/17 History Tiotropium [place] [Spiriva] 1 cap INHALATION RT-DAILY #1 device 02/17/17 Rx predniSONE See Taper PO DAILY #30 tab 02/17/17 02/17/17 Rx Allergies Allergy/AdvReac Type Severity Reaction Status Date / Time amoxicillin Allergy Rash/Hives Verified 02/17/17 08:46 clavulanic acid Allergy Rash/Hives Verified 02/17/17 08:46 [From Augmentin] rituximab [From Rituxan] Allergy Anaphylaxis Verified 02/17/17 08:46 Physical Exam Vitals: Vital Signs Temp Pulse Resp BP Pulse Ox 02/18/17 20:00 98.5 F 80 18 112/60 93 L 02/18/17 15:00 98.4 F 89 18 111/59 93 L 02/18/17 12:30 98.8 F 02/18/17 12:00 99.1 F 02/18/17 11:00 100.9 F H 02/18/17 08:00 99.1 F 99 14 127/57 96 02/18/17 02:00 99.1 F 02/18/17 00:20 101 F H 02/17/17 23:40 101.3 F H 02/17/17 23:00 100 16 123/62 94 L 02/17/17 22:40 102 F H Intake and Output 02/18/17 02/18/17 02/18/17 06:59 14:59 22:59 Intake Total 450 180 Output Total 250 Balance 450 -250 180 Intake: Intake, IV Titration 450 Amount ACETAMINOPHEN IV (For NPO 400 ) 1,000 mg In Empty Bag 1 bag @ 400 mls/hr IVPB Q6HR PRN Rx#:[id number] Piperacillin-Tazobactam 3 50 .375 gm In Dextrose/Water 1 50ml.bag @ 12.5 mls/hr IVPB ONCE STA Rx#: [id number] Tube Feeding 180 Output: Urine 250 Other: Voiding Method Urinal Urinal Urinal Weight 86.183 kg Patient Weight 02/19/17 06:59 Weight 86.183 kg 76-year-old male who appears older than his stated age. He is weak and ill in appearance relates he still has significant pain when he tries to swallow it feels like it's getting stuck just below his Rashad's apple. HEENT: Anicteric conjunctiva are pink and moist nasal mucosa grossly intact without significant lesions, there is no thrush. Dry crusting from the extensive herpetic lesion to his lips. Not actively bleeding. Is noted he had extensive thrush that is now resolved just has some dry oral cavity Neck: The neck is supple without significant lymphadenopathy or thyromegaly. Lungs: Good bilateral air entry there is evidence of crackles at the left base evidence of egophony at the left base with dullness. Rest the chest is quite clear Heart: Regular rate and rhythm with an audible S1-S2, no S3 no S4. There is no significant murmur click or rub, PMI was nondisplaced. Abdomen: Positive bowel sounds soft and nontender without palpable masses or organomegaly. There was no guarding or rebound. PEG tube site is intact Extremities: The upper extremities have excellent pulses they are symmetric, no significant petechiae or telangiectasia. No splinter hemorrhages were noted. The lower extremities are free from significant edema. The peripheral pulses were 2+ and symmetric. Neuro: Awake alert oriented to person and place. Does not exhibit acute gross focal sensory motor deficits at this time Results CBC & Chem 7: 02/18/17 07:26 02/18/17 07:26 Labs: Abnormal Lab Results - Last 24 Hours (Table) 02/18/17 02/18/17 02/18/17 Range/Units 06:22 06:48 07:26 RBC 3.61 L (4.30-5.90) m/uL Hgb 10.2 L (13.0-17.5) gm/dL Hct 33.7 L (39.0-53.0) % MCHC 30.4 L (31.0-37.0) g/dL RDW 20.3 H (11.5-15.5) % PT (9.0-12.0) sec INR (<1.2) Sodium (137-145) mmol/L POC Glucose (mg/dL) 73 L (75-99) mg/dL Osmolality (280-301) mosm/kg Calcium (8.4-10.2) mg/dL Total Protein (6.3-8.2) g/dL Albumin (3.5-5.0) g/dL Ur Random Sodium 141 H (30-90) mmol/L 02/18/17 02/18/17 02/18/17 Range/Units 07:26 07:26 15:59 RBC (4.30-5.90) m/uL Hgb (13.0-17.5) gm/dL Hct (39.0-53.0) % MCHC (31.0-37.0) g/dL RDW (11.5-15.5) % PT 12.8 H (9.0-12.0) sec INR 1.3 H (<1.2) Sodium 132 L (137-145) mmol/L POC Glucose (mg/dL) (75-99) mg/dL Osmolality 274 L (280-301) mosm/kg Calcium 7.7 L (8.4-10.2) mg/dL Total Protein 4.1 L (6.3-8.2) g/dL Albumin 2.4 L (3.5-5.0) g/dL Ur Random Sodium (30-90) mmol/L Microbiology - Last 24 Hours (Table) 02/17/17 14:53 Blood Culture - Preliminary Blood No Growth after 24 hours 02/17/17 14:36 Blood Culture - Preliminary Blood No Growth after 24 hours 02/17/17 07:50 Urine Culture - Final Urine,Voided 02/17/17 07:50 Blood Culture - Preliminary Blood No Growth after 24 hours 02/17/17 12:02 Gram Stain - Final Sputum Sputum Culture - Final Laboratory Results WBC 7.2 k/uL (3.8-10.6) 02/18/17 07:26 RBC 3.61 m/uL (4.30-5.90) L 02/18/17 07:26 Hgb 10.2 gm/dL (13.0-17.5) L 02/18/17 07:26 Hct 33.7 % (39.0-53.0) L 02/18/17 07:26 MCV 93.4 fL (80.0-100.0) 02/18/17 07:26 MCH 28.4 pg (25.0-35.0) 02/18/17 07:26 MCHC 30.4 g/dL (31.0-37.0) L 02/18/17 07:26 RDW 20.3 % (11.5-15.5) H 02/18/17 07:26 Plt Count 178 k/uL (150-450) 02/18/17 07:26 Neutrophils % (Manual) 74 % 02/18/17 07:26 Band Neutrophils % 1 % 02/17/17 07:50 Lymphocytes % (Manual) 22 % 02/18/17 07:26 Monocytes % (Manual) 2 % 02/18/17 07:26 Eosinophils % (Manual) 2 % 02/18/17 07:26 Neutrophils # (Manual) 5.33 k/uL (1.3-7.7) 02/18/17 07:26 Lymphocytes # (Manual) 1.58 k/uL (1.0-4.8) 02/18/17 07:26 Monocytes # (Manual) 0.14 k/uL (0-1.0) 02/18/17 07:26 Eosinophils # (Manual) 0.14 k/uL (0-0.7) 02/18/17 07:26 Nucleated RBCs 0 /100 WBC (0-0) 02/18/17 07:26 Manual Slide Review Performed 02/18/17 07:26 Hypochromasia Marked 02/18/17 07:26 Poikilocytosis (manual Present 02/17/17 07:50 Anisocytosis Moderate 02/18/17 07:26 Macrocytosis Slight 02/18/17 07:26 PT 12.8 sec (9.0-12.0) H 02/18/17 15:59 INR 1.3 (<1.2) H 02/18/17 15:59 APTT 27.6 sec (22.0-30.0) 02/17/17 07:50 Sodium 132 mmol/L (137-145) L 02/18/17 07:26 Potassium 4.5 mmol/L (3.5-5.1) 02/18/17 07:26 Chloride 101 mmol/L (98-107) 02/18/17 07:26 Carbon Dioxide 24 mmol/L (22-30) 02/18/17 07:26 Anion Gap 7 mmol/L 02/18/17 07:26 BUN 16 mg/dL (9-20) 02/18/17 07:26 Creatinine 0.80 mg/dL (0.66-1.25) 02/18/17 07:26 Est GFR (MDRD) Af Amer >60 (>60 ml/min/1.73 sqM) 02/18/17 07:26 Est GFR (MDRD) Non-Af >60 (>60 ml/min/1.73 sqM) 02/18/17 07:26 Glucose 74 mg/dL (74-99) 02/18/17 07:26 POC Glucose (mg/dL) 95 mg/dL (75-99) 02/18/17 17:59 POC [email or web address] 02/18/17 17:59 Osmolality 274 mosm/kg (280-301) L 02/18/17 07:26 Plasma Lactic Acid Jason 1.2 mmol/L (0.7-2.0) 02/17/17 07:50 Calcium 7.7 mg/dL (8.4-10.2) L 02/18/17 07:26 Phosphorus 2.9 mg/dL (2.5-4.5) 02/17/17 07:50 Magnesium 1.7 mg/dL (1.6-2.3) 02/17/17 07:50 Total Bilirubin 0.5 mg/dL (0.2-1.3) 02/18/17 07:26 AST 29 U/L (17-59) 02/18/17 07:26 ALT 43 U/L (21-72) 02/18/17 07:26 Alkaline Phosphatase 52 U/L (38-126) 02/18/17 07:26 Total Creatine Kinase <20 U/L (55-170) L 02/17/17 07:50 CK-MB (CK-2) 0.3 ng/mL (0.0-2.4) 02/17/17 07:50 CK-MB (CK-2) Rel Index 02/17/17 07:50 Troponin I <0.012 ng/mL (0.000-0.034) 02/18/17 12:52 Total Protein 4.1 g/dL (6.3-8.2) L 02/18/17 07:26 Albumin 2.4 g/dL (3.5-5.0) L 02/18/17 07:26 Urine Color Yellow 02/17/17 07:50 Urine Appearance Clear (Clear) 02/17/17 07:50 Urine pH 8.0 (5.0-8.0) 02/17/17 07:50 Ur Specific [place] 1.010 (1.001-1.035) 02/17/17 07:50 Urine Protein Trace (Negative) H 02/17/17 07:50 Urine Glucose (UA) Negative (Negative) 02/17/17 07:50 Urine Ketones Negative (Negative) 02/17/17 07:50 Urine Blood Negative (Negative) 02/17/17 07:50 Urine Nitrite Negative (Negative) 02/17/17 07:50 Urine Bilirubin Negative (Negative) 02/17/17 07:50 Urine Urobilinogen <2.0 mg/dL (<2.0) 02/17/17 07:50 Ur Leukocyte Esterase Negative (Negative) 02/17/17 07:50 Urine Osmolality 793 mosm/kg (50-1400) 02/18/17 06:48 Ur Random Creatinine 63.8 mg/dL 02/17/17 07:50 Ur Random Sodium 141 mmol/L (30-90) H 02/18/17 06:48 Ur Random Potassium 43.7 mmol/L 02/17/17 07:50 Ur Random Urea Nitrogn 433.0 mg/dL 02/17/17 07:50 Ur Random Calcium 6.6 mg/dL 02/17/17 07:50 Microbiology 02/17/17 14:53 Blood Blood Culture - Preliminary No Growth after 24 hours 02/17/17 14:36 Blood Blood Culture - Preliminary No Growth after 24 hours 02/17/17 07:50 Urine,Voided Urine Culture - Final 02/17/17 07:50 Blood Blood Culture - Preliminary No Growth after 24 hours 02/17/17 12:02 Sputum Gram Stain - Final 02/17/17 12:02 Sputum Sputum Culture - Final Chest x-ray: image reviewed (Left lower lobe infiltration which is new) Assessment and Plan (1) Febrile illness, acute Status: Acute (2) Left lower lobe pneumonia Narrative/Plan: 76-year-old male noted infectious disease service for his 2 recent admissions. During the summer he had significant difficulties with the onset difficulty with swallowing and fevers and varicella-zoster. At that time there was concerns that his malignancy had changed. 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 He received Rituxan therapy. Was also noted to have hypogammaglobulinemia and he received IgG therapy. If not clear when his last IgG therapy was given. We have a more recent IgG level that appears to be low at just over 400. Oncology is following and will help determine the need for immunoglobulin replacement therapy at this time. Recent cultures are reviewed and there was evidence of Enterobacter Kulwicki in MRSA in his sputum. Given his current pneumonia with ensure that were covering for these pathogens with vancomycin. Zosyn will be need to change to meropenem given the Zosyn resistant nature of his Enterobacter Kulwicki that was recently found. Fortunately blood cultures are negative so far. His fever is starting to improve with IV Tylenol. His discomforts are improving. Nutrition is being given through his tube. His recent varicella-zoster is completely resolved. He is being followed by oncology and until he is well cannot receive further chemotherapy. Status: Acute (3) Small B-cell lymphoma Status: Acute
[2017-02-18] MEDS: MEROPENEM 1 GM in SODIUM CHLORIDE 0.9% 100 ML IVPB SCH (22:09)
[2017-02-18] MEDS: VANCOMYCIN 1,500 MG in SODIUM CHLORIDE 0.9% 250 ML IVPB SCH ×2 (23:18→23:27)
[2017-02-19 00:41] LABS: Glucose,Whole Blood 103 mg/dL (75-99)
[2017-02-19] MEDS: LEVOTHYROXINE 125 MCG TAB PEG/G-TUBE SCH (06:07)
[2017-02-19] MEDS: SODIUM CHLORIDE 0.9% 1,000 ML IV SCH (06:16)
[2017-02-19] MEDS: SYMBICORT 160-4.5 MCG INHALER INHALATION SCH ×2 (06:53→19:32)
[2017-02-19 07:13] LABS: Glucose,Whole Blood 120 mg/dL (75-99)
[2017-02-19] MEDS: MEROPENEM 1 GM in SODIUM CHLORIDE 0.9% 100 ML IVPB SCH ×2 (07:31→16:55)
[2017-02-19 08:04] LABS: INR 1.2 (<1.2); Prothrombin Time 12.3 sec (9.0-12.0)
[2017-02-19 08:07] LABS: Anisocytosis Moderate; Aty Lym Flag Marked; CH 27.3; HCT 30.9 % (39.0-53.0); HDW 3.01; HGB 9.7 gm/dL (13.0-17.5); Hypochromasia Marked; MCH 28.7 pg (25.0-35.0); MCHC 31.3 g/dL (31.0-37.0); MCV 91.7 fL (80.0-100.0); Macrocytosis Slight; Mean Platelet Volume 7.9; RBC 3.37 m/uL (4.30-5.90); RDW 20.5 % (11.5-15.5)
[2017-02-19 08:12] LABS: Anion Gap 3 mmol/L; Blood Urea Nitrogen 16 mg/dL (9-20); Calcium 7.8 mg/dL (8.4-10.2); Carbon Dioxide 26 mmol/L (22-30); Chloride 101 mmol/L (98-107); Glucose 108 mg/dL (74-99); Magnesium 1.8 mg/dL (1.6-2.3); Non-African American GFR(MDRD) >60 (>60 ml/min/1.73 sqM); Potassium 3.9 mmol/L (3.5-5.1); Sodium 130 mmol/L (137-145)
[2017-02-19] MEDS: ACETAMINOPHEN IV (For NPO) 1,000 MG in EMPTY BAG 1 BAG IVPB PRN ×2 (09:27→17:36)
--- NOTE | 2017-02-19 09:51 | P.PN ---
Subjective Principal diagnosis: PEG tube malfunction at bedside this morning reports no issues with tube feeds. No N/V/ abdominal pain. Objective - Vital Signs Vital signs: Vital Signs Temp 99.5 F 02/19/17 07:00 Pulse 85 02/19/17 08:00 Resp 20 02/19/17 08:00 BP 117/64 02/19/17 07:00 Pulse Ox 94 L 02/19/17 07:00 Intake & Output 02/18/17 02/19/17 02/19/17 18:59 06:59 18:59 Intake Total 90 450 295 Output Total 250 240 Balance -160 450 55 Weight 86.183 kg 87.5 kg Intake: Tube Feeding 90 450 180 Other 115 Output: Urine 250 240 Other: Voiding Method Urinal Urinal Urinal - Exam General appearance: The patient is alert, oriented, in no acute distress. HET: Head is normocephalic and atraumatic. Pupils are equal and reactive. Oropharynx is clear without lesions. Neck: Supple without lymphadenopathy. Trachea midline. Heart: S1 S2. Regular rate and rhythm. Lungs: No crackles or wheezes are heard. Abdomen: Soft, PEG tube without erythema or drainage or bleeding, nondistended with bowel sounds. Tube feeds infusing. No peritoneal signs. No palpable organomegaly or masses. Extremities: Normal skin color and turgor. No cyanosis, rash, ulceration, clubbing, or edema. Radial and pedal pulses are 2/4 bilaterally. Neurological: [place] palsy left side of face/droop. - Labs CBC & Chem 7: 02/19/17 07:36 02/19/17 07:36 Labs: Abnormal Lab Results - Last 24 Hours (Table) 02/18/17 02/18/17 02/18/17 Range/Units 06:48 07:26 15:59 RBC (4.30-5.90) m/uL Hgb (13.0-17.5) gm/dL Hct (39.0-53.0) % RDW (11.5-15.5) % PT 12.8 H (9.0-12.0) sec INR 1.3 H (<1.2) Sodium (137-145) mmol/L Glucose (74-99) mg/dL POC Glucose (mg/dL) (75-99) mg/dL Osmolality 274 L (280-301) mosm/kg Calcium (8.4-10.2) mg/dL Ur Random Sodium 141 H (30-90) mmol/L 02/19/17 02/19/17 02/19/17 Range/Units 00:34 06:24 07:36 RBC (4.30-5.90) m/uL Hgb (13.0-17.5) gm/dL Hct (39.0-53.0) % RDW (11.5-15.5) % PT (9.0-12.0) sec INR (<1.2) Sodium 130 L (137-145) mmol/L Glucose 108 H (74-99) mg/dL POC Glucose (mg/dL) 103 H 120 H (75-99) mg/dL Osmolality (280-301) mosm/kg Calcium 7.8 L (8.4-10.2) mg/dL Ur Random Sodium (30-90) mmol/L 02/19/17 02/19/17 Range/Units 07:36 07:36 RBC 3.37 L (4.30-5.90) m/uL Hgb 9.7 L (13.0-17.5) gm/dL Hct 30.9 L (39.0-53.0) % RDW 20.5 H (11.5-15.5) % PT 12.3 H (9.0-12.0) sec INR 1.2 H (<1.2) Sodium (137-145) mmol/L Glucose (74-99) mg/dL POC Glucose (mg/dL) (75-99) mg/dL Osmolality (280-301) mosm/kg Calcium (8.4-10.2) mg/dL Ur Random Sodium (30-90) mmol/L Microbiology - Last 24 Hours (Table) 02/17/17 22:35 Gram Stain - Preliminary Sputum 02/17/17 14:53 Blood Culture - Preliminary Blood No Growth after 24 hours 02/17/17 14:36 Blood Culture - Preliminary Blood No Growth after 24 hours 02/17/17 07:50 Urine Culture - Final Urine,Voided 02/17/17 07:50 Blood Culture - Preliminary Blood No Growth after 24 hours 02/17/17 12:02 Gram Stain - Final Sputum Sputum Culture - Final Assessment and Plan Plan: Impression: 1. 76-year-old male with previous esophageal dysphagia secondary to infiltrating lymphoma [facility] readmitted because of syncope and seizures with fever. 2. Malfunctioning PEG tube resolved. Plan: 1. Continue tube feeds. Assessment and plan a care discussed with Dr. Aponte
[2017-02-19] MEDS: ENOXAPARIN 40 MG/0.4 ML SYRINGE SQ SCH (10:12)
[2017-02-19] MEDS: DILTIAZEM ORAL 30 MG TAB PO SCH ×4 (10:12→22:35)
[2017-02-19] MEDS: VANCOMYCIN 1,500 MG in SODIUM CHLORIDE 0.9% 250 ML IVPB SCH ×2 (10:12→20:53)
[2017-02-19] MEDS ORDERED: FUROSEMIDE 20 MG TAB PO STA ×2 (11:03→19:11)
[2017-02-19 11:07] LABS: Add Differential Manual Differential
--- NOTE | 2017-02-19 11:08 | P.PN ---
Subjective Patient is seen in follow-up for hyponatremia. Sodium level is down to 1:30 today. He is currently maintained on tube feeds. Patient is not able to tolerate oral intake due to tumor infiltration and dysphagia. He denies any active complaints at this time. Hemodynamically he is stable. Admits to good urine output. He is currently being treated for left lower lobe pneumonia. Cultures are negative so far. Vital signs are stable. General: The patient appeared well nourished and normally developed. HEENT: Head exam is unremarkable. Neck is without jugular venous distension. LUNGS: Lungs are clear to auscultation and percussion. Breath sounds decreased. HEART: Rate and Rhythm are regular. First and second heart sounds normal. No murmurs, rubs or gallops. ABDOMEN: Abdominal exam reveals normal bowel sounds. Non-tender and non- distended. No evidence of peritonitis. EXTREMITITES: No clubbing, cyanosis, or edema. Objective - Vital Signs Vital signs: Vital Signs Temp 99.5 F 02/19/17 07:00 Pulse 85 02/19/17 08:00 Resp 20 02/19/17 08:00 BP 117/64 02/19/17 07:00 Pulse Ox 94 L 02/19/17 07:00 Intake & Output 02/18/17 02/19/17 02/19/17 18:59 06:59 18:59 Intake Total 90 450 295 Output Total 250 240 Balance -160 450 55 Weight 86.183 kg 87.5 kg Intake: Tube Feeding 90 450 180 Other 115 Output: Urine 250 240 Other: Voiding Method Urinal Urinal Urinal - Labs CBC & Chem 7: 02/19/17 07:36 02/19/17 07:36 Labs: Abnormal Lab Results - Last 24 Hours (Table) 02/18/17 02/18/17 02/18/17 Range/Units 06:48 07:26 15:59 RBC (4.30-5.90) m/uL Hgb (13.0-17.5) gm/dL Hct (39.0-53.0) % RDW (11.5-15.5) % PT 12.8 H (9.0-12.0) sec INR 1.3 H (<1.2) Sodium (137-145) mmol/L Glucose (74-99) mg/dL POC Glucose (mg/dL) (75-99) mg/dL Osmolality 274 L (280-301) mosm/kg Calcium (8.4-10.2) mg/dL Ur Random Sodium 141 H (30-90) mmol/L 02/19/17 02/19/17 02/19/17 Range/Units 00:34 06:24 07:36 RBC (4.30-5.90) m/uL Hgb (13.0-17.5) gm/dL Hct (39.0-53.0) % RDW (11.5-15.5) % PT (9.0-12.0) sec INR (<1.2) Sodium 130 L (137-145) mmol/L Glucose 108 H (74-99) mg/dL POC Glucose (mg/dL) 103 H 120 H (75-99) mg/dL Osmolality (280-301) mosm/kg Calcium 7.8 L (8.4-10.2) mg/dL Ur Random Sodium (30-90) mmol/L 02/19/17 02/19/17 Range/Units 07:36 07:36 RBC 3.37 L (4.30-5.90) m/uL Hgb 9.7 L (13.0-17.5) gm/dL Hct 30.9 L (39.0-53.0) % RDW 20.5 H (11.5-15.5) % PT 12.3 H (9.0-12.0) sec INR 1.2 H (<1.2) Sodium (137-145) mmol/L Glucose (74-99) mg/dL POC Glucose (mg/dL) (75-99) mg/dL Osmolality (280-301) mosm/kg Calcium (8.4-10.2) mg/dL Ur Random Sodium (30-90) mmol/L Microbiology - Last 24 Hours (Table) 02/17/17 07:50 Blood Culture - Preliminary Blood No Growth after 48 hours 02/17/17 22:35 Gram Stain - Preliminary Sputum 02/17/17 14:53 Blood Culture - Preliminary Blood No Growth after 24 hours 02/17/17 14:36 Blood Culture - Preliminary Blood No Growth after 24 hours 02/17/17 07:50 Urine Culture - Final Urine,Voided 02/17/17 12:02 Gram Stain - Final Sputum Sputum Culture - Final Assessment and Plan Plan: Assessment: #1. Hyponatremia. It appears patient was slightly hypovolemic initially as he wasn't receiving his tube feeds and was also a little hypotensive. Now appears euvolemic. Most recent sodium level is 130 as of this morning. 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 High urine sodium and urine osmolality also suggestive of SIADH. #2. History of dysphagia status post PEG tube placement maintained on tube feeds. #3. Pneumonia maintained on antibiotics. Infectious disease following. Plan: Discontinue normal saline. Maintain tube feeds. 20 mg oral Lasix once today. Follow-up cultures. Check TSH and cortisol level. Repeat sodium level at 5 PM today.
--- NOTE | 2017-02-19 11:10 | P.PN ---
Subjective This is a 76-year-old male. Past medical history significant for CLL, COPD, dysphagia with PEG tube, paroxysmal atrial fibrillation, herpes zoster and Fletcher's palsy. Patient presents with complaints of syncopal episode at home. states the patient had been up and down all night Thursday night with frequent urination. He stood up from a sitting position to urinate again and he fell to the ground. She states he was unresponsive and she thought he had . The patient states the last thing he remembers is standing up to use the urinal and then he was on the ground. He denies chest pain, shortness of breath , dizziness, palpitations prior to this event. He states last night while he was in bed he felt an episode of heart "fluttering" that resolved on its own. He was not on telemetry at that time. It should be noted the patient was also febrile at that time 102F. Blood pressure this morning 127/57 with heart rate of 99. The pt was first diagnosed with atrial fibrillation in December and was placed on IV cardizem and heparin. He was subsequently transferred to [facility] and no oral anticoagulation was initiated upon discharge. His oncology team here was consulted and they have advised from their standpoint he is a safe candidate at this time. EKG done shows normal sinus mechanism, rate of 96 beats per minute with no T- wave abnormality. He is being treated for enterobacter kulwicki and MRSA of the sputum currently. He continues to be febrile and mildly tachycardic. Telemetry tracings indicated sinus rhythm with intermittent episodes of sinus tachycardia. No evidence of atrial fibrillation/flutter. Coumadin was started yesterday. Objective - Vital Signs Vital signs: Vital Signs Temp 99.5 F 02/19/17 07:00 Pulse 85 02/19/17 07:00 Resp 20 02/19/17 07:00 BP 117/64 02/19/17 07:00 Pulse Ox 94 L 02/19/17 07:00 Intake & Output 02/18/17 02/19/17 02/19/17 18:59 06:59 18:59 Intake Total 90 450 115 Output Total 250 240 Balance -160 450 -125 Weight 86.183 kg 87.5 kg Intake: Tube Feeding 90 450 Other 115 Output: Urine 250 240 Other: Voiding Method Urinal Urinal - Exam GENERAL: This is a 76-year-old male in no apparent distress at the time of my examination. LUNGS: Clear to auscultation no wheezes, rales or rhonchi. No chest wall tenderness is noted on palpation or with deep breathing. HEART: Regular rate and rhythm without murmurs, rubs or gallops. S1 and S2 heard. ABDOMEN: Soft, nontender. Bowel sounds are heard. No organomegaly noted. EXTREMITIES: 2+ peripheral pulses with no evidence of peripheral edema and no calf tenderness noted. - Labs CBC & Chem 7: 02/19/17 07:36 02/19/17 07:36 Labs: Abnormal Lab Results - Last 24 Hours (Table) 02/18/17 02/18/17 02/18/17 Range/Units 06:48 07:26 07:26 RBC 3.61 L (4.30-5.90) m/uL Hgb 10.2 L (13.0-17.5) gm/dL Hct 33.7 L (39.0-53.0) % MCHC 30.4 L (31.0-37.0) g/dL RDW 20.3 H (11.5-15.5) % PT (9.0-12.0) sec INR (<1.2) Sodium (137-145) mmol/L Glucose (74-99) mg/dL POC Glucose (mg/dL) (75-99) mg/dL Osmolality 274 L (280-301) mosm/kg Calcium (8.4-10.2) mg/dL Ur Random Sodium 141 H (30-90) mmol/L 02/18/17 02/19/17 02/19/17 Range/Units 15:59 00:34 06:24 RBC (4.30-5.90) m/uL Hgb (13.0-17.5) gm/dL Hct (39.0-53.0) % MCHC (31.0-37.0) g/dL RDW (11.5-15.5) % PT 12.8 H (9.0-12.0) sec INR 1.3 H (<1.2) Sodium (137-145) mmol/L Glucose (74-99) mg/dL POC Glucose (mg/dL) 103 H 120 H (75-99) mg/dL Osmolality (280-301) mosm/kg Calcium (8.4-10.2) mg/dL Ur Random Sodium (30-90) mmol/L 02/19/17 02/19/17 02/19/17 Range/Units 07:36 07:36 07:36 RBC 3.37 L (4.30-5.90) m/uL Hgb 9.7 L (13.0-17.5) gm/dL Hct 30.9 L (39.0-53.0) % MCHC (31.0-37.0) g/dL RDW 20.5 H (11.5-15.5) % PT 12.3 H (9.0-12.0) sec INR 1.2 H (<1.2) Sodium 130 L (137-145) mmol/L Glucose 108 H (74-99) mg/dL POC Glucose (mg/dL) (75-99) mg/dL Osmolality (280-301) mosm/kg Calcium 7.8 L (8.4-10.2) mg/dL Ur Random Sodium (30-90) mmol/L Microbiology - Last 24 Hours (Table) 02/17/17 22:35 Gram Stain - Preliminary Sputum 02/17/17 14:53 Blood Culture - Preliminary Blood No Growth after 24 hours 02/17/17 14:36 Blood Culture - Preliminary Blood No Growth after 24 hours 02/17/17 07:50 Urine Culture - Final Urine,Voided 02/17/17 07:50 Blood Culture - Preliminary Blood No Growth after 24 hours 02/17/17 12:02 Gram Stain - Final Sputum Sputum Culture - Final Assessment and Plan Plan: ASSESSMENT 1. Paroxysmal atrial fibrillation 2. Syncopal episode 3. CLL 4. COPD 5. 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 Nurse Practitioner note has been reviewed, I agree with a documented findings and plan of care. Patient was seen and examined.
[2017-02-19 11:24] LABS: Nucleated Red Blood Cells 0 /100 WBC (0-0); Total Cells Counted 100
[2017-02-19 11:26] LABS: Manual Review Performed
[2017-02-19] MEDS: MULTIVITAMINS, THERA 1 EACH TAB PEG/G-TUBE SCH (11:27)
--- NOTE | 2017-02-19 11:38 | P.PN ---
Subjective Assessment Pneumonia left lower lobe Oral thrush History of atrial fibrillation paroxysmal Acute on chronic COPD Hypothyroidism Chronic lymphocytic leukemia PEG feeding tube in place Fletcher's palsy left-sided weakness Chronic sinusitis Syncope Febrile illness Altered mental status secondary to hypotensive event Dysphagia with motility problems Protein malnutrition Herpes zoster rash to her right side of trunk Continue consultation with cardiology oncology nephrology infectious disease and gastroenterology regarding feeding tube Objective - Vital Signs Vital signs: Vital Signs Temp 99.5 F 02/19/17 07:00 Pulse 85 02/19/17 08:00 Resp 20 02/19/17 08:00 BP 117/64 02/19/17 07:00 Pulse Ox 94 L 02/19/17 07:00 Intake & Output 02/18/17 02/19/17 02/19/17 18:59 06:59 18:59 Intake Total 90 450 385 Output Total 250 240 Balance -160 450 145 Weight 86.183 kg 87.5 kg Intake: Tube Feeding 90 450 270 Other 115 Output: Urine 250 240 Other: Voiding Method Urinal Urinal Urinal - Labs CBC & Chem 7: 02/19/17 07:36 02/19/17 07:36 Labs: Abnormal Lab Results - Last 24 Hours (Table) 02/18/17 02/18/17 02/18/17 Range/Units 06:48 07:26 15:59 RBC (4.30-5.90) m/uL Hgb (13.0-17.5) gm/dL Hct (39.0-53.0) % RDW (11.5-15.5) % PT 12.8 H (9.0-12.0) sec INR 1.3 H (<1.2) Sodium (137-145) mmol/L Glucose (74-99) mg/dL POC Glucose (mg/dL) (75-99) mg/dL Osmolality 274 L (280-301) mosm/kg Calcium (8.4-10.2) mg/dL Ur Random Sodium 141 H (30-90) mmol/L 02/19/17 02/19/17 02/19/17 Range/Units 00:34 06:24 07:36 RBC (4.30-5.90) m/uL Hgb (13.0-17.5) gm/dL Hct (39.0-53.0) % RDW (11.5-15.5) % PT (9.0-12.0) sec INR (<1.2) Sodium 130 L (137-145) mmol/L Glucose 108 H (74-99) mg/dL POC Glucose (mg/dL) 103 H 120 H (75-99) mg/dL Osmolality (280-301) mosm/kg Calcium 7.8 L (8.4-10.2) mg/dL Ur Random Sodium (30-90) mmol/L 02/19/17 02/19/17 Range/Units 07:36 07:36 RBC 3.37 L (4.30-5.90) m/uL Hgb 9.7 L (13.0-17.5) gm/dL Hct 30.9 L (39.0-53.0) % RDW 20.5 H (11.5-15.5) % PT 12.3 H (9.0-12.0) sec INR 1.2 H (<1.2) Sodium (137-145) mmol/L Glucose (74-99) mg/dL POC Glucose (mg/dL) (75-99) mg/dL Osmolality (280-301) mosm/kg Calcium (8.4-10.2) mg/dL Ur Random Sodium (30-90) mmol/L Microbiology - Last 24 Hours (Table) 02/17/17 07:50 Blood Culture - Preliminary Blood No Growth after 48 hours 02/17/17 22:35 Gram Stain - Preliminary Sputum 02/17/17 14:53 Blood Culture - Preliminary Blood No Growth after 24 hours 02/17/17 14:36 Blood Culture - Preliminary Blood No Growth after 24 hours 02/17/17 07:50 Urine Culture - Final Urine,Voided
[2017-02-19] MEDS ORDERED: ARTIFICIAL TEARS-HYPROMELLOSE DROPS 15 ML BTL LEFT EYE PRN (11:39)
--- NOTE | 2017-02-19 12:06 | P.CNPUL ---
History of Present Illness Consult date: 02/19/17 Requesting physician: Brian Barrientos Reason for consult: dyspnea, abnormal CXR/CT (Left lower lobe infiltrate) Chief complaint: Syncopal episode History of present illness: This is a very pleasant 76-year-old gentleman who follows with Dr. Barrientos as his primary care physician. He has accused 3 of CLL, COPD, paroxysmal atrial fibrillation, hypothyroidism, recent viral infection of chickenpox, recent Fletcher' s palsy. He had developed significant difficulty in swallowing is now status post PEG tube insertion. The patient was just discharged from here on 2016 to home. At that admission he did have positive MRSA and Enterobacter in his sputum. He presented with presented here again on 02/17/2017 early in the morning after he had stood up out of bed to urinate and passed out. His stated he was out for quite some time. She did have a pulse ox on him and his O2 saturation was 82 and his heart rate was 122. EMS was called and he was brought here to the emergency room. A computed tomography scan of the brain revealed no acute intracranial hemorrhage or mass effect. There is extensive chronic sinusitis noted. EKG showed normal sinus rhythm with no ST or T-wave abnormalities. Blood and sputum cultures thus far are showing no growth. No leukocytosis. Hemoglobin 9.7. Sodium low at 1:30 the rest electrolytes were within normal limits. BUN and creatinine within normal limits. He has had ongoing issues with fever. T-max this admission is 101.8. He was afebrile several days prior to his discharge. He has been followed with Dr. Rondon. He is currently on vancomycin and meropenem. His chest x-ray was reviewed. There is a left lower lobe possible infiltrate versus atelectasis. Upon looking back at the one from February 13 this is slightly improved if not stable. He is currently maintaining good O2 saturations immediately mid 90s on 2 L/m per nasal cannula. Current temperature 99.5. He is currently awake and alert in no acute distress. No worsening shortness of breath. Nonproductive cough. No chills or night sweats. Review of Systems Eyes: left blurred vision (Slight droop secondary to Fletcher's palsy), denies bulging eye, denies decreased vision Ears: bilateral: decreased hearing Ears, nose, mouth and throat: Reports post-nasal drip Cardiovascular: Denies chest pain, Denies shortness of breath Respiratory: Reports congestion, Reports cough, Reports excessive sputum Gastrointestinal: Reports bloating Musculoskeletal: Denies myalgias Integumentary: Denies pruritus, Denies rash Neurological: Denies numbness, Denies weakness Past Medical History Past Medical History: Atrial Fibrillation, Cancer, COPD, Neurologic Disorder, Osteoarthritis (OA), Pneumonia, Prostate Disorder, Thyroid Disorder Additional Past Medical History / Comment(s): Patient recently admitted for atrial flutter with RVR and febrile illness 02/03/2017 Other hx: Chronic lymphocytic leukemia-has had 2 doses chemo therapy at [facility] and is due for more chemo next week, hypogammaglobulinemia, anemia, dysphagia-NPO with peg tube, lesoins on vocal cords/tongue, chronic bronchitis, pneumonia with sepsis, paroxysmal atrial fibrillation, hypothyroidism, viral skin rash- chickenpox rash , Fletcher's palsy L face, bilateral tinnitis. History of Any Multi-Drug Resistant Organisms: MRSA Date of last positivie culture/infection: 02/05/17 MDRO Source:: Sputum Past Surgical History: Tonsillectomy Additional Past Surgical History / Comment(s): Peg tube insertion, colonoscopies /polypectomies, rectal fissure repair, belateral knee arthroscopies, THYROID SURGERY Past Anesthesia/Blood Transfusion Reactions: Blood Transfusion Reaction Additional Past Anesthesia/Blood Transfusion Reaction / Comment(s): GAVE BENADRYL AND RAN SLOW. Has had multiple transfusuions and has a reaction every time Smoking Status: Former smoker Additional Past Alcohol Use History / Comment(s): Patient was only a smoker for 5-6 years in the 1960s. No marijuana or street drug use. He and his winter in [place] and return to [place] for the oates. They have a terrier without any other animal exposures he currently lives on the [address]. Patient does normal yardwork but no extensive gardening or other hobbies. He has been too ill this summer to really participate in outdoor activities - Past Family History Father Family Medical History: Dementia Mother Family Medical History: No Reported History Medications and Allergies Home Medications Medication Instructions Recorded Confirmed Type Budesonide/Formoterol Fumarate 2 puff INHALATION RT-BID 12/21/16 02/17/17 History [Symbicort 160-4.5 Mcg Inhaler] Multivitamins, Thera [Multivitamin 1 tab PEG/G-TUBE DAILY 12/21/16 02/17/17 History (formulary)] Fluconazole Oral Susp [Diflucan 200 mg PEG/G-TUBE Q24H #7 day 02/16/17 02/17/17 Rx Oral Susp] Albuterol Inhaler [Ventolin Hfa 1 - 2 puff INHALATION RT-Q6H PRN 02/17/17 History Inhaler] Diltiazem HCl [Diltiazem 24Hr ER] 120 mg PEG/G-TUBE Q24HR 02/17/17 02/17/17 History Levothyroxine Sodium [Synthroid] 125 mcg PEG/G-TUBE DAILY 02/17/17 02/17/17 History Tiotropium [place] [Spiriva] 1 cap INHALATION RT-DAILY #1 device 02/17/17 Rx predniSONE See Taper PO DAILY #30 tab 02/17/17 02/17/17 Rx Allergies Allergy/AdvReac Type Severity Reaction Status Date / Time amoxicillin Allergy Rash/Hives Verified 02/17/17 08:46 clavulanic acid Allergy Rash/Hives Verified 02/17/17 08:46 [From Augmentin] rituximab [From Rituxan] Allergy Anaphylaxis Verified 02/17/17 08:46 Physical Exam Vitals: Vital Signs Temp Pulse Resp BP Pulse Ox 02/19/17 08:00 85 20 02/19/17 07:00 99.5 F 85 20 117/64 94 L 02/19/17 00:31 98.4 F 02/18/17 23:40 99.4 F 02/18/17 23:15 100.3 F H 02/18/17 22:00 101.0 F H 02/18/17 20:00 98.5 F 80 18 112/60 93 L 02/18/17 15:00 98.4 F 89 18 111/59 93 L 02/18/17 12:30 98.8 F 02/18/17 12:00 99.1 F Intake and Output 02/18/17 02/19/17 02/19/17 22:59 06:59 14:59 Intake Total 270 270 385 Output Total 240 Balance 270 270 145 Intake: Tube Feeding 270 270 270 Other 115 Output: Urine 240 Other: Voiding Method Urinal Urinal Urinal Weight 87.5 kg GENERAL EXAM: Alert, relatively comfortable in no apparent distress. HEAD: Normocephalic. Left-sided facial droop secondary to Fletcher's palsy. EYES: Normal reaction of pupils, equal size. Left eye patched. NOSE: Clear with pink turbinates. THROAT: No erythema or exudates. NECK: No masses, no JVD. CHEST: No chest wall deformity. LUNGS: Equal air entry with coarse basilar crackles. CVS: S1 and S2 normal with no audible murmurs, regular rhythm. ABDOMEN: PEG tube exit site is clean and dry. Soft. Bowel sounds are present. SPINE: No scoliosis or deformity SKIN: No rashes CENTRAL NERVOUS SYSTEM: No focal deficits, tone is normal in all 4 extremities. Extremities: There is trace peripheral edema. No clubbing, no cyanosis. Peripheral pulses are intact. Results - Laboratory Findings CBC and BMP: 02/19/17 07:36 02/19/17 07:36 PT/INR, D-dimer PT 12.3 sec (9.0-12.0) H 02/19/17 07:36 INR 1.2 (<1.2) H 02/19/17 07:36 Abnormal lab findings: Abnormal Labs 02/17/17 02/17/17 02/17/17 07:50 07:50 07:50 RBC 3.86 L Hgb 10.9 L Hct 35.1 L MCHC RDW 20.4 H PT INR Sodium 131 L Chloride 95 L Carbon Dioxide 31 H Glucose POC Glucose (mg/dL) Osmolality Calcium 8.2 L Total Creatine Kinase <20 L Total Protein 4.6 L Albumin 2.8 L Urine Protein Ur Random Sodium 02/17/17 02/17/17 02/17/17 07:50 07:50 07:50 RBC Hgb Hct MCHC RDW PT INR 1.2 H Sodium Chloride Carbon Dioxide Glucose POC Glucose (mg/dL) Osmolality 273 L Calcium Total Creatine Kinase Total Protein Albumin Urine Protein Trace H Ur Random Sodium 02/17/17 02/18/17 02/18/17 07:50 06:22 06:48 RBC Hgb Hct MCHC RDW PT INR Sodium Chloride Carbon Dioxide Glucose POC Glucose (mg/dL) 73 L Osmolality Calcium Total Creatine Kinase Total Protein Albumin Urine Protein Ur Random Sodium 177 H 141 H 02/18/17 02/18/17 02/18/17 07:26 07:26 07:26 RBC 3.61 L Hgb 10.2 L Hct 33.7 L MCHC 30.4 L RDW 20.3 H PT INR Sodium 132 L Chloride Carbon Dioxide Glucose POC Glucose (mg/dL) Osmolality 274 L Calcium 7.7 L Total Creatine Kinase Total Protein 4.1 L Albumin 2.4 L Urine Protein Ur Random Sodium 02/18/17 02/19/17 02/19/17 15:59 00:34 06:24 RBC Hgb Hct MCHC RDW PT 12.8 H INR 1.3 H Sodium Chloride Carbon Dioxide Glucose POC Glucose (mg/dL) 103 H 120 H Osmolality Calcium Total Creatine Kinase Total Protein Albumin Urine Protein Ur Random Sodium 02/19/17 02/19/17 02/19/17 07:36 07:36 07:36 RBC 3.37 L Hgb 9.7 L Hct 30.9 L MCHC RDW 20.5 H PT 12.3 H INR 1.2 H Sodium 130 L Chloride Carbon Dioxide Glucose 108 H POC Glucose (mg/dL) Osmolality Calcium 7.8 L Total Creatine Kinase Total Protein Albumin Urine Protein Ur Random Sodium - Diagnostic Findings Chest x-ray: image reviewed Assessment and Plan Plan: Impression: #1 Syncopal episode of unclear etiology. Suspect dehydration, hypotension, vasovagal. 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 #3 Left lower lobe infiltrate on top of pulmonary fibrosis. Suspect chronic in nature however could be acute pneumonia. Possible aspiration. The patient was recently admitted and treated for MRSA and Enterobacter pneumonia. #4 Febrile illness of unclear etiology, suspect secondary to above. Sputum and blood cultures thus far reveal no growth. #5 Chronic obstructive pulmonary disease, currently inactive and stable. FEV1 value estimated at 50% of predicted. Maintained on Symbicort and Spiriva in the outpatient setting. 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 #7 Paroxysmal atrial fibrillation, currently in normal sinus rhythm. Maintained on warfarin. #8 Hypothyroidism. #9 Recent viral skin rash, possibly related chickenpox and positive for VZV by PCR. #10 Does palsy with left-sided facial droop. #11 Dysphagia secondary to CLL involving the posterior oropharynx and larynx while an ENT evaluation at [facility]. He is status post PEG tube insertion for nutritional support. 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 Plan: The patient was seen and evaluated by Dr. Parikh. His chest x-ray and labs were reviewed. He is currently stable from the pulmonary standpoint. Continue bronchodilators and Symbicort. He is seen by infectious disease and the patient is currently on vancomycin and meropenem. We'll continue to watch for cultures to return. Remain in aspiration precautions. We will continue to follow and make further recommendations based on his clinical status. Time with Patient: Greater than 30
--- NOTE | 2017-02-19 12:13 | P.PN ---
Subjective at bedside stable condition. Infectious disease consult antibiotics changed for pneumonia Objective - Vital Signs Vital signs: Vital Signs Temp 99.5 F 02/19/17 11:39 Pulse 84 02/19/17 10:00 Resp 20 02/19/17 08:00 BP 117/61 02/19/17 10:00 Pulse Ox 94 L 02/19/17 07:00 Intake & Output 02/18/17 02/19/17 02/19/17 18:59 06:59 18:59 Intake Total 90 450 385 Output Total 250 480 Balance -160 450 -95 Weight 86.183 kg 87.5 kg Intake: Tube Feeding 90 450 270 Other 115 Output: Urine 250 480 Other: Voiding Method Urinal Urinal Urinal # Bowel Movements 1 - Constitutional General appearance: Present: mild distress - EENT EENT Comment(s): left side facial droop ENT: Present: hard of hearing Ears: bilateral: normal - Neck Neck: Present: normal ROM - Respiratory Respiratory: bilateral: dullness - Cardiovascular Rhythm: regularly irregular - Peripheral edema leg Peripheral Edema: bilateral: 3+ - Gastrointestinal Gastrointestinal Comment(s): peg tube - Integumentary Integumentary: Present: normal - Neurologic Neurologic Comment(s): left sided facial droop - Musculoskeletal Musculoskeletal: Present: generalized weakness - Psychiatric Psychiatric: Present: A&O x's 3, appropriate affect, intact judgment & insight - Labs CBC & Chem 7: 02/19/17 07:36 02/19/17 07:36 Labs: Abnormal Lab Results - Last 24 Hours (Table) 02/18/17 02/18/17 02/18/17 Range/Units 06:48 07:26 15:59 RBC (4.30-5.90) m/uL Hgb (13.0-17.5) gm/dL Hct (39.0-53.0) % RDW (11.5-15.5) % PT 12.8 H (9.0-12.0) sec INR 1.3 H (<1.2) Sodium (137-145) mmol/L Glucose (74-99) mg/dL POC Glucose (mg/dL) (75-99) mg/dL Osmolality 274 L (280-301) mosm/kg Uric Acid (3.5-8.5) mg/dL Calcium (8.4-10.2) mg/dL Ur Random Sodium 141 H (30-90) mmol/L 02/19/17 02/19/17 02/19/17 Range/Units 00:34 06:24 07:36 RBC (4.30-5.90) m/uL Hgb (13.0-17.5) gm/dL Hct (39.0-53.0) % RDW (11.5-15.5) % PT (9.0-12.0) sec INR (<1.2) Sodium 130 L (137-145) mmol/L Glucose 108 H (74-99) mg/dL POC Glucose (mg/dL) 103 H 120 H (75-99) mg/dL Osmolality (280-301) mosm/kg Uric Acid (3.5-8.5) mg/dL Calcium 7.8 L (8.4-10.2) mg/dL Ur Random Sodium (30-90) mmol/L 02/19/17 02/19/17 02/19/17 Range/Units 07:36 07:36 07:36 RBC 3.37 L (4.30-5.90) m/uL Hgb 9.7 L (13.0-17.5) gm/dL Hct 30.9 L (39.0-53.0) % RDW 20.5 H (11.5-15.5) % PT 12.3 H (9.0-12.0) sec INR 1.2 H (<1.2) Sodium (137-145) mmol/L Glucose (74-99) mg/dL POC Glucose (mg/dL) (75-99) mg/dL Osmolality (280-301) mosm/kg Uric Acid 2.0 L (3.5-8.5) mg/dL Calcium (8.4-10.2) mg/dL Ur Random Sodium (30-90) mmol/L Microbiology - Last 24 Hours (Table) 02/17/17 07:50 Blood Culture - Preliminary Blood No Growth after 48 hours 02/17/17 22:35 Gram Stain - Preliminary Sputum 02/17/17 14:53 Blood Culture - Preliminary Blood No Growth after 24 hours 02/17/17 14:36 Blood Culture - Preliminary Blood No Growth after 24 hours 02/17/17 07:50 Urine Culture - Final Urine,Voided - Imaging and Cardiology Chest x-ray: report reviewed
[2017-02-19 12:26] LABS: Glucose,Whole Blood 119 mg/dL (75-99)
[2017-02-19] MEDS: NYSTATIN 100,000 UNIT/ML SUSP 500,000 UNIT/5 ML CUP PO SCH ×3 (12:57→22:35)
--- NOTE | 2017-02-19 14:17 | CDI ---
In responding to this query, please exercise your independent professional judgment. The [facility] Coding Staff and Clinical Documentation Specialists appreciate your assistance in clarifying documentation, maintaining compliance with coding guidelines, accurately documenting patients condition and capturing severity of illness. The fact that a question is asked does not imply that any particular answer is desired or expected. Communication forms are a method of clarifying documentation and are not made part of the Legal Health Record. Thank you in advance for your clarification. Last Revision, April 2015 Arnold Arguello [address] [facility] [place] [address] Documentation Clarification Form Date: 02/19/2017 1:48:00 PM From: Zelda Lindsay RN, CCDS Admit Date: 02/17/2017 11:31:00 AM Patient Name: Heri Lopez Visit Number: [id number] Dr. Brian Barrientos/ Zhanna ELLISON Pneumonia was documented in your notes and requires further specificity History/Risk Factors: Dysphagia, CLL on chemo, Peg tube feedings, Syncopal episode Clinical Indicators: 02/18 ID: "Recent cultures are reviewed and there was evidence of Enterobacter Kulwicki in MRSA in his sputum. Given his current pneumonia with ensure that were covering for these pathogens with vancomycin. Zosyn will be need to change to meropenem given the Zosyn resistant nature of his Enterobacter Kulwicki that was recently found." 02/19 Pulmonary Consult: "Left lower lobe infiltrate on top of pulmonary fibrosis. Suspect chronic in nature however could be acute pneumonia. Possible & aspiration. The patient was recently admitted and treated for MRSA and Enterobacter pneumonia." WBC/Left shift: WBC 10.3/7.2/6 no left shift 02/18 CXR: There is left lower lobe infiltrate with small 02/19 Lung/Breathing assessment: Respiratory: bilateral: dullness Treatment: Antibiotics: Meropenem 1 gm IVPB Q 12 hrs, IVPB Zosyn 3.375gm IVPB Q 8 hrs D/C, Vanco 1500mg IVPB Q 12 hrs O2: 4L NC weaned down to 2l nc Breathing Tx: Duoneb Q 4 hrs PRN, Symbicort BID IVF: 2.5L IVF Bolus In order to capture the severity of condition, please clarify if the condition signifies and you are treating for: Aspiration Pneumonia, identify if: Due to solids or liquids Bacterial Pneumonia, specify causal organism (if known) Gram Negative Pneumonia Due to Strep Due to Staph Due to E. Coli Other bacteria (specify) Viral Pneumonia, specify casual organism (if known) Unable to determine Link any associated conditions to the pneumonia: Influenza with secondary gram negative pneumonia Sepsis due to pneumonia Acute respiratory failure due to pneumonia Other, please specify Please document in your progress notes and discharge summary in order to capture severity of illness and risk of mortality. Include clinical findings that support your diagnosis. FYI: Press F11 to launch patient chart. Place X here if this finding has no clinical significance, is not applicable or if you are not able to provide any additional documentation. NE
--- NOTE | 2017-02-19 14:32 | CDI ---
In responding to this query, please exercise your independent professional judgment. The [facility] Coding Staff and Clinical Documentation Specialists appreciate your assistance in clarifying documentation, maintaining compliance with coding guidelines, accurately documenting patients condition and capturing severity of illness. The fact that a question is asked does not imply that any particular answer is desired or expected. Communication forms are a method of clarifying documentation and are not made part of the Legal Health Record. Thank you in advance for your clarification. Last Revision, April 2015 Arnold Arguello [address] [facility] [address] [facility] [place] [address] Documentation Clarification Form Date: 02/19/2017 2:19:00 PM From: Zelda Lindsay RN, CCDS Admit Date: 02/17/2017 11:31:00 AM Patient Name: Heri Lopez Visit Number: [id number] Dr. Brian Barrientos/ Zhanna ELLISON Malnutrition has been documented in progress notes. History/Risk Factors: Paulina Palsy with left facial droop, actively receiving chemotherapy for CLL Clinical Indicators: 02/17 H&P: "Protein deficiencies secondary to inability to swallow food." 02/19 Pulmonary Consult: "Dysphagia secondary to CLL involving the posterior oropharynx and larynx while an ENT evaluation at [facility]. He is status post PEG tube insertion for nutritional support." 02/19 Attending Progress Note: Protein malnutrition. Left lower lobe infiltrate on top of pulmonary fibrosis. Suspect chronic in nature however could be acute pneumonia. Possible aspiration. The patient was Recently admitted and treated for MRSA and Enterobacter pneumonia. " Labs: Albumin: 2.8/2.4 Total Protein: 4.6/4.1 Current BMI: 27.7 Insufficient energy intake: Tube feeding held d/t peg tube malfunction Treatment: Dietary Consult: Completed 02/18 Supplements/TPN: Recommended tube feeding Vital 1.2 @ 65 ml/hr via PEG Tube Lab monitoring: AM Daily In your professional opinion, can you please clarify if these findings signify one of the following conditions? Mild Protein-Calorie Malnutrition Moderate Protein-Calorie Malnutrition Severe Protein-Calorie Malnutrition Other condition, please specify Unable to determine Please document in your progress notes and discharge summary in order to capture severity of illness and risk of mortality. Include clinical findings that support your diagnosis. FYI: Press F11 to launch patient chart. Place X here if this finding has no clinical significance, is not applicable or if you are not able to provide any additional documentation. MTDD
--- NOTE | 2017-02-19 14:41 | CDI ---
In responding to this query, please exercise your independent professional judgment. The [facility] Coding Staff and Clinical Documentation Specialists appreciate your assistance in clarifying documentation, maintaining compliance with coding guidelines, accurately documenting patients condition and capturing severity of illness. The fact that a question is asked does not imply that any particular answer is desired or expected. Communication forms are a method of clarifying documentation and are not made part of the Legal Health Record. Thank you in advance for your clarification. Last Revision, August 2015 Arnold Arguello [address] [place] [address] Documentation Clarification Form Date: 02/19/2017 2:33:00 PM From: Zelda Lindsay RN, CCDS Admit Date: 02/17/2017 11:31:00 AM Patient Name: Heri Lopez Visit Number: [id number] Dr. Brian Barrientos/ Zhanna ELLISON Hypotension is documented in the progress notes and requires further specificty. History/Risk Factors: pneumonia, CLL, Acute renal failure, protein malnutrition Clinical Indicators: 02/17 H&P: "Altered mental status secondary to hypotensive events." Patients B/P: 81/43 Labs: Hgb 10.9/10.2 Treatment: 2.5 L IVF Bolus In your professional opinion, can you please specify the etiology of the hypotension if known? Iatrogenic Hypotension Neurogenic Orthostatic Hypotension Orthostatic Hypotension Postural Hypotension Idiopathic Hypotension Drug Induced Hypotension Hypovolemic Shock Other Condition, please specify Unable to determine Please document in your progress notes and discharge summary in order to capture severity of illness and risk of mortality. Include clinical findings that support your diagnosis. FYI: Press F11 to launch patient chart Place X here if this finding has no clinical significance, is not applicable or if you are not able to provide any additional documentation. LOUISED
--- NOTE | 2017-02-19 14:51 | CDI ---
In responding to this query, please exercise your independent professional judgment. The [facility] Coding Staff and Clinical Documentation Specialists appreciate your assistance in clarifying documentation, maintaining compliance with coding guidelines, accurately documenting patients condition and capturing severity of illness. The fact that a question is asked does not imply that any particular answer is desired or expected. Communication forms are a method of clarifying documentation and are not made part of the Legal Health Record. Thank you in advance for your clarification. Last Revision, August 2015 Arnold Arguello [address] [facility] [place] [address] Documentation Clarification Form Date: 02/19/2017 2:42:00 PM From: Zelda Lindsay RN, CCDS Admit Date: 02/17/2017 11:31:00 AM Patient Name: Heri Lopez Visit Number: [id number] Dr. Brian Barrientos/ Karthikeyan Altered mental status was documented in the H&P and progress notes Patient history/risk factors: Pneumonia, CLL receiving Chemo Clinical Indicators: 02/19 Attending Progress note; "Altered mental status secondary to hypotensive event Dysphagia with motility problems." Labs: Hgb 10.9/10.2/9.7 CXR: "There is left lower lobe infiltrate with small effusion." Treatment: IVF Bolus 2.5L IV Meropenem, IV Vanco In your professional opinion, please clarify the etiology of the altered mental status, if known. Encephalopathy (specify Type and Underlying Medical Illness) Delirium (specify cause): Dementia (if know, specify Type and if with/without Behavioral Disturbance) Other condition (please specify) Unable to determine Please document in your progress notes and discharge summary in order to capture severity of illness and risk of mortality. Include clinical findings that support your diagnosis. FYI: Press F11 to launch patient chart. Place X here if this finding has no clinical significance, is not applicable or if you are not able to provide any additional documentation. MTDD
[2017-02-19 17:31] LABS: Glucose,Whole Blood 98 mg/dL (75-99)
[2017-02-19] MEDS: WARFARIN 5 MG TAB PO SCH (17:45)
--- NOTE | 2017-02-19 22:46 | P.PN ---
Subjective Principal diagnosis: sepsis 76-year-old male with a known history of chronic lymphocytic leukemia with not been any therapy up to this December. However that point in time he presented to Hospital feeling poorly. Had severe sore throat difficulty with chewing and swallowing. He was not feeling well. He was hospitalized at that time and treated with antibiotic therapy with concerns to pneumonia and high- grade fever. He also developed an extensive skin rash. Testing at our facility did confirm varicella-zoster which he had treatment for from beginning of his stay in December. Because of his ongoing difficulties with swallowing he was transferred to his oncologist at [facility]. 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 And he was initiated to Rituxan therapy. 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 He is not clear when his next treatment would be due. Last IgG level was 400. At this time the patient is still somewhat miserable. He is unaware of the events that occurred that led him to the hospital. He apparently was unconscious when the found him and she was concerned that there was seizure. He constantly was brought to Hospital by EMS. At this time he is sitting up right somewhat comfortable. He is oriented and able to converse although he is quite hard of hearing He was having significant pains earlier and is now more comfortable. His significant abdominal discomforts have improved. He does cough and has had fever does not relate to significant sputum production or hemoptysis. Still feels poorly Objective - Vital Signs Vital signs: Vital Signs Temp 99.5 F 02/19/17 20:35 Pulse 85 02/19/17 20:35 Resp 16 02/19/17 20:35 BP 104/50 02/19/17 20:35 Pulse Ox 96 02/19/17 20:35 Intake & Output 02/19/17 02/19/17 02/20/17 06:59 18:59 06:59 Intake Total 450 655 Output Total 880 Balance 450 -225 Weight 87.5 kg Intake: Tube Feeding 450 540 Other 115 Output: Urine 880 Other: Voiding Method Urinal Urinal # Bowel Movements 1 - Exam 76-year-old male who appears older than his stated age. He is weak and ill in appearance relates he still has significant pain when he tries to swallow it feels like it's getting stuck just below his Rashad's apple. HEENT: Anicteric conjunctiva are pink and moist nasal mucosa grossly intact without significant lesions, there is no thrush. Dry crusting from the extensive herpetic lesion to his lips. Not actively bleeding. Is noted he had extensive thrush that is now resolved just has some dry oral cavity Neck: The neck is supple without significant lymphadenopathy or thyromegaly. Lungs: Good bilateral air entry there is evidence of crackles at the left base evidence of egophony at the left base with dullness. otherwise the chest is quite clear Heart: Regular rate and rhythm with an audible S1-S2, no S3 no S4. There is no significant murmur click or rub, PMI was nondisplaced. Abdomen: Positive bowel sounds soft and nontender without palpable masses or organomegaly. There was no guarding or rebound. PEG tube site is intact Extremities: The upper extremities have excellent pulses they are symmetric, no significant petechiae or telangiectasia. No splinter hemorrhages were noted. The lower extremities are free from significant edema. The peripheral pulses were 2+ and symmetric. Neuro: Awake alert oriented to person and place. Does not exhibit acute gross focal sensory motor deficits at this time - Labs CBC & Chem 7: 02/19/17 07:36 02/19/17 16:37 Labs: Abnormal Lab Results - Last 24 Hours (Table) 02/19/17 02/19/17 02/19/17 Range/Units 00:34 06:24 07:36 RBC (4.30-5.90) m/uL Hgb (13.0-17.5) gm/dL Hct (39.0-53.0) % RDW (11.5-15.5) % PT (9.0-12.0) sec INR (<1.2) Sodium 130 L (137-145) mmol/L Glucose 108 H (74-99) mg/dL POC Glucose (mg/dL) 103 H 120 H (75-99) mg/dL Uric Acid (3.5-8.5) mg/dL Calcium 7.8 L (8.4-10.2) mg/dL TSH (0.465-4.680) mIU/L 02/19/17 02/19/17 02/19/17 Range/Units 07:36 07:36 07:36 RBC 3.37 L (4.30-5.90) m/uL Hgb 9.7 L (13.0-17.5) gm/dL Hct 30.9 L (39.0-53.0) % RDW 20.5 H (11.5-15.5) % PT 12.3 H (9.0-12.0) sec INR 1.2 H (<1.2) Sodium (137-145) mmol/L Glucose (74-99) mg/dL POC Glucose (mg/dL) (75-99) mg/dL Uric Acid 2.0 L (3.5-8.5) mg/dL Calcium (8.4-10.2) mg/dL TSH 5.540 H (0.465-4.680) mIU/L 02/19/17 02/19/17 Range/Units 11:46 16:37 RBC (4.30-5.90) m/uL Hgb (13.0-17.5) gm/dL Hct (39.0-53.0) % RDW (11.5-15.5) % PT (9.0-12.0) sec INR (<1.2) Sodium 130 L (137-145) mmol/L Glucose (74-99) mg/dL POC Glucose (mg/dL) 119 H (75-99) mg/dL Uric Acid (3.5-8.5) mg/dL Calcium (8.4-10.2) mg/dL TSH (0.465-4.680) mIU/L Microbiology - Last 24 Hours (Table) 02/17/17 14:53 Blood Culture - Preliminary Blood No Growth after 48 hours 02/17/17 14:36 Blood Culture - Preliminary Blood No Growth after 48 hours 02/17/17 22:35 Gram Stain - Preliminary Sputum Sputum Culture - Preliminary Presumptive Staph aureus 02/17/17 07:50 Blood Culture - Preliminary Blood No Growth after 48 hours Laboratory Results WBC 6.0 k/uL (3.8-10.6) 02/19/17 07:36 RBC 3.37 m/uL (4.30-5.90) L 02/19/17 07:36 Hgb 9.7 gm/dL (13.0-17.5) L 02/19/17 07:36 Hct 30.9 % (39.0-53.0) L 02/19/17 07:36 MCV 91.7 fL (80.0-100.0) 02/19/17 07:36 MCH 28.7 pg (25.0-35.0) 02/19/17 07:36 MCHC 31.3 g/dL (31.0-37.0) 02/19/17 07:36 RDW 20.5 % (11.5-15.5) H 02/19/17 07:36 Plt Count 163 k/uL (150-450) 02/19/17 07:36 Neutrophils % (Manual) 57 % 02/19/17 07:36 Band Neutrophils % 1 % 02/17/17 07:50 Lymphocytes % (Manual) 36 % 02/19/17 07:36 Monocytes % (Manual) 5 % 02/19/17 07:36 Eosinophils % (Manual) 2 % 02/19/17 07:36 Neutrophils # (Manual) 3.42 k/uL (1.3-7.7) 02/19/17 07:36 Lymphocytes # (Manual) 2.16 k/uL (1.0-4.8) 02/19/17 07:36 Monocytes # (Manual) 0.30 k/uL (0-1.0) 02/19/17 07:36 Eosinophils # (Manual) 0.12 k/uL (0-0.7) 02/19/17 07:36 Nucleated RBCs 0 /100 WBC (0-0) 02/19/17 07:36 Manual Slide Review Performed 02/19/17 07:36 Hypochromasia Marked 02/19/17 07:36 Poikilocytosis (manual Present 02/19/17 07:36 Anisocytosis Moderate 02/19/17 07:36 Macrocytosis Slight 02/19/17 07:36 PT 12.3 sec (9.0-12.0) H 02/19/17 07:36 INR 1.2 (<1.2) H 02/19/17 07:36 APTT 27.6 sec (22.0-30.0) 02/17/17 07:50 Sodium 130 mmol/L (137-145) L 02/19/17 16:37 Potassium 3.9 mmol/L (3.5-5.1) 02/19/17 07:36 Chloride 101 mmol/L (98-107) 02/19/17 07:36 Carbon Dioxide 26 mmol/L (22-30) 02/19/17 07:36 Anion Gap 3 mmol/L 02/19/17 07:36 BUN 16 mg/dL (9-20) 02/19/17 07:36 Creatinine 0.72 mg/dL (0.66-1.25) 02/19/17 07:36 Est GFR (MDRD) Af Amer >60 (>60 ml/min/1.73 sqM) 02/19/17 07:36 Est GFR (MDRD) Non-Af >60 (>60 ml/min/1.73 sqM) 02/19/17 07:36 Glucose 108 mg/dL (74-99) H 02/19/17 07:36 POC Glucose (mg/dL) 98 mg/dL (75-99) 02/19/17 17:26 POC Glu Telephone Directory Distributor Driver ID Gita Evans 02/19/17 17:26 Osmolality 274 mosm/kg (280-301) L 02/18/17 07:26 Plasma Lactic Acid Jason 1.2 mmol/L (0.7-2.0) 02/17/17 07:50 Uric Acid 2.0 mg/dL (3.5-8.5) L 02/19/17 07:36 Calcium 7.8 mg/dL (8.4-10.2) L 02/19/17 07:36 Phosphorus 2.9 mg/dL (2.5-4.5) 02/17/17 07:50 Magnesium 1.8 mg/dL (1.6-2.3) 02/19/17 07:36 Total Bilirubin 0.5 mg/dL (0.2-1.3) 02/18/17 07:26 AST 29 U/L (17-59) 02/18/17 07:26 ALT 43 U/L (21-72) 02/18/17 07:26 Alkaline Phosphatase 52 U/L (38-126) 02/18/17 07:26 Total Creatine Kinase <20 U/L (55-170) L 02/17/17 07:50 CK-MB (CK-2) 0.3 ng/mL (0.0-2.4) 02/17/17 07:50 CK-MB (CK-2) Rel Index 02/17/17 07:50 Troponin I <0.012 ng/mL (0.000-0.034) 02/18/17 12:52 Total Protein 4.1 g/dL (6.3-8.2) L 02/18/17 07:26 Albumin 2.4 g/dL (3.5-5.0) L 02/18/17 07:26 TSH 5.540 mIU/L (0.465-4.680) H 02/19/17 07:36 Free T4 1.20 ng/dL (0.78-2.19) 02/19/17 07:36 Cortisol 18 ug/dL 02/19/17 07:36 Urine Color Yellow 02/17/17 07:50 Urine Appearance Clear (Clear) 02/17/17 07:50 Urine pH 8.0 (5.0-8.0) 02/17/17 07:50 Ur Specific [place] 1.010 (1.001-1.035) 02/17/17 07:50 Urine Protein Trace (Negative) H 02/17/17 07:50 Urine Glucose (UA) Negative (Negative) 02/17/17 07:50 Urine Ketones Negative (Negative) 02/17/17 07:50 Urine Blood Negative (Negative) 02/17/17 07:50 Urine Nitrite Negative (Negative) 02/17/17 07:50 Urine Bilirubin Negative (Negative) 02/17/17 07:50 Urine Urobilinogen <2.0 mg/dL (<2.0) 02/17/17 07:50 Ur Leukocyte Esterase Negative (Negative) 02/17/17 07:50 Urine Osmolality 793 mosm/kg (50-1400) 02/18/17 06:48 Ur Random Creatinine 63.8 mg/dL 02/17/17 07:50 Ur Random Sodium 141 mmol/L (30-90) H 02/18/17 06:48 Ur Random Potassium 43.7 mmol/L 02/17/17 07:50 Ur Random Urea Nitrogn 433.0 mg/dL 02/17/17 07:50 Ur Random Calcium 6.6 mg/dL 02/17/17 07:50 Microbiology 02/17/17 14:53 Blood Blood Culture - Preliminary No Growth after 48 hours 02/17/17 14:36 Blood Blood Culture - Preliminary No Growth after 48 hours 02/17/17 22:35 Sputum Gram Stain - Preliminary 02/17/17 22:35 Sputum Sputum Culture - Preliminary Presumptive Staph aureus 02/17/17 07:50 Blood Blood Culture - Preliminary No Growth after 48 hours 02/17/17 07:50 Urine,Voided Urine Culture - Final 02/17/17 12:02 Sputum Gram Stain - Final 02/17/17 12:02 Sputum Sputum Culture - Final - Imaging and Cardiology Chest x-ray: image reviewed (lll infiltrate) Assessment and Plan (1) Febrile illness, acute Status: Acute (2) Left lower lobe pneumonia Narrative/Plan: 76-year-old male noted infectious disease service for his 2 recent admissions. During the summer he had significant difficulties with the onset difficulty with swallowing and fevers and varicella-zoster. At that time there was concerns that his malignancy had changed. He was transferred her [facility] and biopsies of his tongue revealed evidence of the CLL transition to small cell lymphoma. He received Rituxan therapy. Was also noted to have hypogammaglobulinemia and he received IgG therapy. If not clear when his last IgG therapy was given. We have a more recent IgG level that appears to be low at just over 400. Oncology is following and will help determine the need for immunoglobulin replacement therapy at this time. Recent cultures are reviewed and there was evidence of Enterobacter and MRSA in his sputum. Given his current pneumonia with ensure that were covering for these pathogens with vancomycin. Zosyn will be need to change to meropenem given the Zosyn resistant nature of his Enterobacter that was recently found. Fortunately blood cultures are negative so far. His fever is starting to improve with IV Tylenol. His discomforts are improving. Nutrition is being given through his tube. His recent varicella-zoster is completely resolved. He is being followed by oncology and until he is well cannot receive further chemotherapy. Status: Acute (3) Small B-cell lymphoma Status: Acute
[2017-02-20] MEDS: MEROPENEM 1 GM in SODIUM CHLORIDE 0.9% 100 ML IVPB SCH ×4 (00:07→23:34)
[2017-02-20] MEDS: LORazepam 1 MG TAB PO PRN ×2 (00:07→22:15)
[2017-02-20 00:49] LABS: Glucose,Whole Blood 113 mg/dL (75-99)
[2017-02-20] MEDS: ACETAMINOPHEN IV (For NPO) 1,000 MG in EMPTY BAG 1 BAG IVPB PRN ×3 (05:20→21:33)
[2017-02-20 05:49] LABS: Glucose,Whole Blood 129 mg/dL (75-99)
[2017-02-20] MEDS: LEVOTHYROXINE 125 MCG TAB PEG/G-TUBE SCH (06:27)
[2017-02-20] MEDS: SYMBICORT 160-4.5 MCG INHALER INHALATION SCH ×3 (07:42→20:21)
[2017-02-20 08:08] LABS: Anion Gap 4 mmol/L; Blood Urea Nitrogen 12 mg/dL (9-20); Calcium 7.5 mg/dL (8.4-10.2); Carbon Dioxide 29 mmol/L (22-30); Chloride 98 mmol/L (98-107); Glucose 116 mg/dL (74-99); Non-African American GFR(MDRD) >60 (>60 ml/min/1.73 sqM); Potassium 3.5 mmol/L (3.5-5.1); Sodium 131 mmol/L (137-145)
--- NOTE | 2017-02-20 09:44 | P.PN ---
Progress Note - Text Addendum pneumonia Enterobacter Nahun has peg tube dysphasia possible aspiration moderate protein calorie malnutrition secondary to dysphasia has high-protein tube feeding supplement with static hypertension metabolic encephalopathy underlying metabolic illness dehydration malnutrition
[2017-02-20] MEDS: NYSTATIN 100,000 UNIT/ML SUSP 500,000 UNIT/5 ML CUP PO SCH ×4 (10:29→23:35)
[2017-02-20] MEDS: ENOXAPARIN 40 MG/0.4 ML SYRINGE SQ SCH (10:29)
[2017-02-20] MEDS: DILTIAZEM ORAL 30 MG TAB PO SCH ×4 (10:29→23:35)
[2017-02-20] MEDS: VANCOMYCIN 1,500 MG in SODIUM CHLORIDE 0.9% 250 ML IVPB SCH ×2 (10:29→21:29)
--- NOTE | 2017-02-20 11:21 | P.PN ---
Subjective Progress note dated 02/20/2017 This is a 76-year-old male who we saw yesterday in consultation. His primary reason for admission with syncopal episode possibly related to underlying dehydration with orthostasis. 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 The patient was here previously and transferred to [facility]. The patient's back here now. Currently on antibiotics as per infectious disease. Currently on IV vancomycin and meropenem. The patient looks better today. Still has a left facial droop. No fever this far. Again Dr. Rondon is on the case as well. Objective - Vital Signs Vital signs: Vital Signs Temp 98.7 F 02/20/17 07:00 Pulse 84 02/20/17 07:00 Resp 18 02/20/17 07:00 BP 117/57 02/20/17 07:00 Pulse Ox 95 02/20/17 07:00 Intake & Output 02/19/17 02/20/17 02/20/17 18:59 06:59 18:59 Intake Total 655 780 Output Total 880 500 Balance -225 280 Weight 86.5 kg 86.5 kg Intake: Tube Feeding 540 780 Other 115 Output: Urine 880 500 Other: Voiding Method Urinal Urinal Urinal # Voids 2 # Bowel Movements 1 - Exam No acute distress, oriented 3. Obvious left facial droop. HEENT examination is grossly unremarkable. Neck supple. Full range of motion. Cardiovascular examination reveals regular rhythm rate. S1-S2 normal. Lungs reveal mostly clear breath sounds. A few scattered rhonchi. Abdomen soft bowel sounds are heard. Extremities are intact. No cyanosis clubbing or edema. Skin is with normal range. - Labs CBC & Chem 7: 02/19/17 07:36 02/20/17 07:17 Labs: Abnormal Lab Results - Last 24 Hours (Table) 02/19/17 02/19/17 02/19/17 Range/Units 07:36 11:46 16:37 Sodium 130 L (137-145) mmol/L Creatinine (0.66-1.25) mg/dL Glucose (74-99) mg/dL POC Glucose (mg/dL) 119 H (75-99) mg/dL Uric Acid 2.0 L (3.5-8.5) mg/dL Calcium (8.4-10.2) mg/dL TSH 5.540 H (0.465-4.680) mIU/L 02/20/17 02/20/17 02/20/17 Range/Units 00:45 05:47 07:17 Sodium 131 L (137-145) mmol/L Creatinine 0.63 L (0.66-1.25) mg/dL Glucose 116 H (74-99) mg/dL POC Glucose (mg/dL) 113 H 129 H (75-99) mg/dL Uric Acid (3.5-8.5) mg/dL Calcium 7.5 L (8.4-10.2) mg/dL TSH (0.465-4.680) mIU/L Microbiology - Last 24 Hours (Table) 02/17/17 07:50 Blood Culture - Preliminary Blood No Growth after 72 hours 02/17/17 14:53 Blood Culture - Preliminary Blood No Growth after 48 hours 02/17/17 14:36 Blood Culture - Preliminary Blood No Growth after 48 hours 02/17/17 22:35 Gram Stain - Preliminary Sputum Sputum Culture - Preliminary Presumptive Staph aureus Assessment and Plan Plan: Assessment and plan dated 02/20/2017 Syncope, likely secondary to dehydration with orthostasis her graft hyponatremia /SIADH Possible left lower lobe pneumonia versus atelectasis secondary to MRSA and Enterobacter Fever, secondary to pneumonia COPD, inactive CLL Paroxysmal atrial fibrillation Hypothyroidism Chickenpox Fletcher's palsy Dysphagia Plan The patient will continue on the vancomycin and meropenem as per infectious disease. From the pulmonary standpoint, the patient is doing reasonably well on bronchodilators and Symbicort. Pulmonary status is relatively stable. I'm not even sure that he actually has pneumonia at this time. We'll continue to follow. He appears more strong today and more alert and awake. Still has the obvious left facial droop. We'll continue to follow. Time with Patient: Greater than 30
--- NOTE | 2017-02-20 11:37 | P.PN ---
Subjective Principal diagnosis: PEG tube malfunction at bedside this morning reports no issues with tube feeds. No N/V/ abdominal pain. Objective - Vital Signs Vital signs: Vital Signs Temp 98.7 F 02/20/17 07:00 Pulse 84 02/20/17 07:00 Resp 18 02/20/17 07:00 BP 117/57 02/20/17 07:00 Pulse Ox 95 02/20/17 07:00 Intake & Output 02/19/17 02/20/17 02/20/17 18:59 06:59 18:59 Intake Total 655 780 Output Total 880 500 Balance -225 280 Weight 86.5 kg 86.5 kg Intake: Tube Feeding 540 780 Other 115 Output: Urine 880 500 Other: Voiding Method Urinal Urinal Urinal # Voids 2 # Bowel Movements 1 - Exam General appearance: The patient is alert, oriented, in no acute distress. HET: Head is normocephalic and atraumatic. Pupils are equal and reactive. Oropharynx is clear without lesions. Neck: Supple without lymphadenopathy. Trachea midline. Heart: S1 S2. Regular rate and rhythm. Lungs: No crackles or wheezes are heard. Abdomen: Soft, PEG tube without erythema or drainage or bleeding, nondistended with bowel sounds. Tube feeds infusing. No peritoneal signs. No palpable organomegaly or masses. Extremities: Normal skin color and turgor. No cyanosis, rash, ulceration, clubbing, or edema. Radial and pedal pulses are 2/4 bilaterally. Neurological: Mcgregor palsy left side of face/droop. - Labs CBC & Chem 7: 02/19/17 07:36 02/20/17 07:17 Labs: Abnormal Lab Results - Last 24 Hours (Table) 02/19/17 02/19/17 02/19/17 Range/Units 07:36 11:46 16:37 Sodium 130 L (137-145) mmol/L Creatinine (0.66-1.25) mg/dL Glucose (74-99) mg/dL POC Glucose (mg/dL) 119 H (75-99) mg/dL Uric Acid 2.0 L (3.5-8.5) mg/dL Calcium (8.4-10.2) mg/dL TSH 5.540 H (0.465-4.680) mIU/L 02/20/17 02/20/17 02/20/17 Range/Units 00:45 05:47 07:17 Sodium 131 L (137-145) mmol/L Creatinine 0.63 L (0.66-1.25) mg/dL Glucose 116 H (74-99) mg/dL POC Glucose (mg/dL) 113 H 129 H (75-99) mg/dL Uric Acid (3.5-8.5) mg/dL Calcium 7.5 L (8.4-10.2) mg/dL TSH (0.465-4.680) mIU/L Microbiology - Last 24 Hours (Table) 02/17/17 07:50 Blood Culture - Preliminary Blood No Growth after 72 hours 02/17/17 14:53 Blood Culture - Preliminary Blood No Growth after 48 hours 02/17/17 14:36 Blood Culture - Preliminary Blood No Growth after 48 hours 02/17/17 22:35 Gram Stain - Preliminary Sputum Sputum Culture - Preliminary Presumptive Staph aureus Assessment and Plan Plan: Impression: 1. 76-year-old male with previous esophageal dysphagia secondary to infiltrating lymphoma [facility] Liyah readmitted because of syncope and seizures with fever. 2. Malfunctioning PEG tube resolved. Plan: 1. Continue tube feeds. We'll sign off and follow as needed. Assessment and plan a care discussed with Dr. Aponte
[2017-02-20 11:56] LABS: INR 1.2 (<1.2); Prothrombin Time 12.1 sec (9.0-12.0)
[2017-02-20 12:18] LABS: Glucose,Whole Blood 117 mg/dL (75-99)
--- NOTE | 2017-02-20 12:57 | P.PN ---
Subjective Patient is seen in follow-up for hyponatremia. Sodium level is 131 today. He is currently maintained on tube feeds. Patient is not able to tolerate oral intake due to tumor infiltration and dysphagia. He denies any active complaints at this time. Hemodynamically he is stable. Admits to good urine output. He is currently being treated for left lower lobe pneumonia. Sputum culture is positive for staph aureus. Vital signs are stable. General: The patient appeared well nourished and normally developed. HEENT: Head exam is unremarkable. Neck is without jugular venous distension. LUNGS: Lungs are clear to auscultation and percussion. Breath sounds decreased. HEART: Rate and Rhythm are regular. First and second heart sounds normal. No murmurs, rubs or gallops. ABDOMEN: Abdominal exam reveals normal bowel sounds. Non-tender and non- distended. No evidence of peritonitis. EXTREMITITES: No clubbing, cyanosis, or edema. Objective - Vital Signs Vital signs: Vital Signs Temp 98.7 F 02/20/17 07:00 Pulse 84 02/20/17 07:00 Resp 18 02/20/17 09:00 BP 117/57 02/20/17 07:00 Pulse Ox 95 02/20/17 07:00 Intake & Output 02/19/17 02/20/17 02/20/17 18:59 06:59 18:59 Intake Total 655 780 Output Total 880 500 Balance -225 280 Weight 86.5 kg 86.5 kg Intake: Tube Feeding 540 780 Other 115 Output: Urine 880 500 Other: Voiding Method Urinal Urinal Urinal # Voids 2 # Bowel Movements 1 1 - Labs CBC & Chem 7: 02/19/17 07:36 02/20/17 07:17 Labs: Abnormal Lab Results - Last 24 Hours (Table) 02/19/17 02/20/17 02/20/17 Range/Units 16:37 00:45 05:47 PT (9.0-12.0) sec INR (<1.2) Sodium 130 L (137-145) mmol/L Creatinine (0.66-1.25) mg/dL Glucose (74-99) mg/dL POC Glucose (mg/dL) 113 H 129 H (75-99) mg/dL Calcium (8.4-10.2) mg/dL 02/20/17 02/20/17 02/20/17 Range/Units 07:17 11:07 12:16 PT 12.1 H (9.0-12.0) sec INR 1.2 H (<1.2) Sodium 131 L (137-145) mmol/L Creatinine 0.63 L (0.66-1.25) mg/dL Glucose 116 H (74-99) mg/dL POC Glucose (mg/dL) 117 H (75-99) mg/dL Calcium 7.5 L (8.4-10.2) mg/dL Microbiology - Last 24 Hours (Table) 02/17/17 07:50 Blood Culture - Preliminary Blood No Growth after 72 hours 02/17/17 14:53 Blood Culture - Preliminary Blood No Growth after 48 hours 02/17/17 14:36 Blood Culture - Preliminary Blood No Growth after 48 hours 02/17/17 22:35 Gram Stain - Preliminary Sputum Sputum Culture - Preliminary Presumptive Staph aureus Assessment and Plan Plan: Assessment: #1. Hyponatremia. It appears patient was slightly hypovolemic initially as he wasn't receiving his tube feeds and was also a little hypotensive. Now appears euvolemic. Most recent sodium level is 131 as of this morning. 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 High urine sodium, high urine osmolality and low uric acid also suggestive of SIADH. #2. History of dysphagia status post PEG tube placement maintained on tube feeds. #3. Pneumonia maintained on antibiotics. Infectious disease following. #4. Hypokalemia related to his nutritional status and diuretics. Magnesium replete. Plan: Discontinued normal saline. Maintain tube feeds. 20 mg oral Lasix once daily. Replace potassium. 40 mEq today. Repeat electrolytes in the morning.
--- NOTE | 2017-02-20 12:59 | P.PN ---
Subjective This is a 76-year-old male. Past medical history significant for CLL, COPD, dysphagia with PEG tube, paroxysmal atrial fibrillation, herpes zoster and Fletcher's palsy. Coumadin was started for atrial fibrillation. Telemetry tracings indicated no signs of arrhythmia, sinus mechanism for the previous 24 hrs. Pharmacy to dose coumadin. He denies chest pain, shortness of breath, palpitations or dizziness. Continues to be febrile, followed by infectious disease and oncology. Objective - Vital Signs Vital signs: Vital Signs Temp 98.7 F 02/20/17 07:00 Pulse 84 02/20/17 07:00 Resp 18 02/20/17 07:00 BP 117/57 02/20/17 07:00 Pulse Ox 95 02/20/17 07:00 Intake & Output 02/19/17 02/20/17 02/20/17 18:59 06:59 18:59 Intake Total 655 780 Output Total 880 500 Balance -225 280 Weight 86.5 kg 86.5 kg Intake: Tube Feeding 540 780 Other 115 Output: Urine 880 500 Other: Voiding Method Urinal Urinal Urinal # Voids 2 # Bowel Movements 1 - Exam GENERAL: This is a 76-year-old male in no apparent distress at the time of my examination. LUNGS: Clear to auscultation no wheezes, rales or rhonchi. No chest wall tenderness is noted on palpation or with deep breathing. HEART: Regular rate and rhythm without murmurs, rubs or gallops. S1 and S2 heard. ABDOMEN: Soft, nontender. Bowel sounds are heard. No organomegaly noted. EXTREMITIES: 2+ peripheral pulses with no evidence of peripheral edema and no calf tenderness noted. - Labs CBC & Chem 7: 02/19/17 07:36 02/20/17 07:17 Labs: Abnormal Lab Results - Last 24 Hours (Table) 02/19/17 02/19/17 02/19/17 Range/Units 07:36 11:46 16:37 Sodium 130 L (137-145) mmol/L Creatinine (0.66-1.25) mg/dL Glucose (74-99) mg/dL POC Glucose (mg/dL) 119 H (75-99) mg/dL Uric Acid 2.0 L (3.5-8.5) mg/dL Calcium (8.4-10.2) mg/dL TSH 5.540 H (0.465-4.680) mIU/L 02/20/17 02/20/17 02/20/17 Range/Units 00:45 05:47 07:17 Sodium 131 L (137-145) mmol/L Creatinine 0.63 L (0.66-1.25) mg/dL Glucose 116 H (74-99) mg/dL POC Glucose (mg/dL) 113 H 129 H (75-99) mg/dL Uric Acid (3.5-8.5) mg/dL Calcium 7.5 L (8.4-10.2) mg/dL TSH (0.465-4.680) mIU/L Microbiology - Last 24 Hours (Table) 02/17/17 07:50 Blood Culture - Preliminary Blood No Growth after 72 hours 02/17/17 14:53 Blood Culture - Preliminary Blood No Growth after 48 hours 02/17/17 14:36 Blood Culture - Preliminary Blood No Growth after 48 hours 02/17/17 22:35 Gram Stain - Preliminary Sputum Sputum Culture - Preliminary Presumptive Staph aureus Assessment and Plan Plan: ASSESSMENT 1. Paroxysmal atrial fibrillation 2. Syncopal episode 3. CLL 4. COPD 5. 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 Telemetry can be discontinued. Continue with current medical management. We will see the patient on an as needed basis. Please feel free to contact us if you should need anything further. Upon discharge the patient should follow-up with PT/INR 1 week after discharge and see Dr. Garcia 1 week after that. Nurse Practitioner note has been reviewed, I agree with a documented findings and plan of care. Patient was seen and examined.
[2017-02-20] MEDS: MULTIVITAMINS, THERA 1 EACH TAB PEG/G-TUBE SCH (14:47)
[2017-02-20] MEDS: POTASSIUM CHLORIDE 10 MEQ, LIDOCAINE 2% INJ 10 MG in SODIUM CHLORIDE 0.9% 100 ML IVPB SCH ×4 (14:48→20:15)
[2017-02-20] MEDS: FUROSEMIDE 20 MG TAB PO SCH (14:48)
[2017-02-20] MEDS ORDERED: IMMUNE GLOBULIN (HUMAN-IGG) 1 GM/10 ML VIAL IV SCH (17:15)
[2017-02-20] MEDS: WARFARIN 5 MG TAB PO SCH (17:29)
--- NOTE | 2017-02-20 17:46 | P.PN ---
Subjective The patient remains weak, and get short of breath easily. However he is improved, with sputum now much more clear. Objective - Vital Signs Vital signs: Vital Signs Temp 98.7 F 02/20/17 17:33 Pulse 86 02/20/17 17:33 Resp 16 02/20/17 15:55 BP 113/59 02/20/17 17:33 Pulse Ox 95 02/20/17 17:33 Intake & Output 02/19/17 02/20/17 02/20/17 18:59 06:59 18:59 Intake Total 655 780 520 Output Total 880 500 Balance -225 280 520 Weight 86.5 kg 86.5 kg Intake: Tube Feeding 540 780 520 Other 115 Output: Urine 880 500 Other: Voiding Method Urinal Urinal Urinal # Voids 2 # Bowel Movements 1 1 - Constitutional General appearance: Present: no acute distress - EENT Eyes: Present: EOMI, PERRLA ENT: Present: hearing grossly normal, normal oropharynx - Respiratory Respiratory: bilateral: rales - Cardiovascular Rhythm: regular Heart sounds: normal: S1, S2 - Gastrointestinal General gastrointestinal: Present: normal bowel sounds, soft - Neurologic Neurologic: Present: focal deficits (Left facial nerve palsy) - Musculoskeletal Musculoskeletal: Present: generalized weakness, strength equal bilaterally - Psychiatric Psychiatric: Present: A&O x's 3, appropriate affect - Labs CBC & Chem 7: 02/19/17 07:36 02/20/17 07:17 Labs: Abnormal Lab Results - Last 24 Hours (Table) 02/20/17 02/20/17 02/20/17 Range/Units 00:45 05:47 07:17 PT (9.0-12.0) sec INR (<1.2) Sodium (137-145) mmol/L Creatinine (0.66-1.25) mg/dL Glucose (74-99) mg/dL POC Glucose (mg/dL) 113 H 129 H (75-99) mg/dL Calcium (8.4-10.2) mg/dL IgG 226.0 L (700.0-1600.0) mg/dL IgA <25.5 L (60.0-350.0) mg/dL IgM <16.9 L (40.0-280.0) mg/dL 02/20/17 02/20/17 02/20/17 Range/Units 07:17 11:07 12:16 PT 12.1 H (9.0-12.0) sec INR 1.2 H (<1.2) Sodium 131 L (137-145) mmol/L Creatinine 0.63 L (0.66-1.25) mg/dL Glucose 116 H (74-99) mg/dL POC Glucose (mg/dL) 117 H (75-99) mg/dL Calcium 7.5 L (8.4-10.2) mg/dL IgG (700.0-1600.0) mg/dL IgA (60.0-350.0) mg/dL IgM (40.0-280.0) mg/dL Microbiology - Last 24 Hours (Table) 02/17/17 14:53 Blood Culture - Preliminary Blood No Growth after 72 hours 02/17/17 14:36 Blood Culture - Preliminary Blood No Growth after 72 hours 02/17/17 07:50 Blood Culture - Preliminary Blood No Growth after 72 hours 02/17/17 22:35 Gram Stain - Preliminary Sputum Sputum Culture - Preliminary Presumptive Staph aureus Assessment and Plan (1) Sepsis Narrative/Plan: The patient is improved with aggressive antibiotic therapy. Sputum culture was growing staph aureus. With antibiotics, sputum is much more clear compared to the purulent expectoration of 2 days ago. Continue antibiotics, per ID and the admitting service Status: Acute (2) CLL (chronic lymphocytic leukemia) Narrative/Plan: The patient's WBC and differential do not show much change. 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 He will resume treatment, once infection is resolved. He has had documented anaphylaxis to Rituxan Status: Chronic (3) Hypogammaglobulinemia Narrative/Plan: All this is due to the underlying CLL/SLL. IgG was in the 200 range. IVIG infusions have been ordered. Premedications will be given, the review of the patient's records from outside institution showed that his reaction had been to Rituxan Status: Acute
[2017-02-20] MEDS ORDERED: ACETAMINOPHEN TAB 500 MG TAB PO PRN (17:51)
[2017-02-20] MEDS ORDERED: IMMUNE GLOBULIN (HUMAN-IGG) 20 GM in EMPTY BAG 1 BAG IV ONE (18:00)
--- NOTE | 2017-02-20 18:39 | P.PN ---
Subjective . Personal being dictated for Dr. Mason. Interval history: This is a 76-year-old male who we saw yesterday in consultation. 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 02/20/2017 sodium 131, normal saline discontinued. Continues on tube feeds with minimal to no residuals. Denies abdominal pain, no nausea, no vomiting. Breathing improving .Remains febrile, T-max in 100. Sputum currently reporting presumptive staph. Maintained on vancomycin and Merrem as per infectious disease. IVIG infusions ordered, IgG in the 200s. Denies chest pain, palpitations or increasing shortness of breath. Objective - Vital Signs Vital signs: Vital Signs Temp 98.7 F 02/20/17 17:33 Pulse 86 02/20/17 17:33 Resp 16 02/20/17 15:55 BP 113/59 02/20/17 17:33 Pulse Ox 95 02/20/17 17:33 Intake & Output 02/19/17 02/20/17 02/20/17 18:59 06:59 18:59 Intake Total 655 780 520 Output Total 880 500 Balance -225 280 520 Weight 86.5 kg 86.5 kg Intake: Tube Feeding 540 780 520 Other 115 Output: Urine 880 500 Other: Voiding Method Urinal Urinal Urinal # Voids 2 # Bowel Movements 1 1 - Exam PHYSICAL EXAM: VITAL SIGNS: [As above] GENERAL: Sitting up in bed, tired appearing, febrile HEENT: Conjunctivae normal. eyes normal. NECK: No JVD. No thyroid enlargement. CARDIOVASCULAR: S1, S2 muffled. No murmurs, rubs or gallops RESPIRATION: Bilateral bases diminished, no wheezing, no crackles, occ. rhonchi ABDOMEN: Soft, nontender . No guarding. no masses palpable. PEG tube present Bowel sounds heard. LEGS: No edema. no swelling PSYCHIATRY: Alert and oriented -3, mood and affect normal. 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 Diffuse weakness. No new focal deficits. No sensory deficit. Skin: no ulcer no rash Microbiology 02/17/17 14:53 Blood Blood Culture - Preliminary No Growth after 72 hours 02/17/17 14:36 Blood Blood Culture - Preliminary No Growth after 72 hours 02/17/17 07:50 Blood Blood Culture - Preliminary No Growth after 72 hours 02/17/17 22:35 Sputum Gram Stain - Preliminary 02/17/17 22:35 Sputum Sputum Culture - Preliminary Presumptive Staph aureus 02/17/17 07:50 Urine,Voided Urine Culture - Final 02/17/17 12:02 Sputum Gram Stain - Final 02/17/17 12:02 Sputum Sputum Culture - Final - Labs CBC & Chem 7: 02/19/17 07:36 02/20/17 07:17 Labs: Abnormal Lab Results - Last 24 Hours (Table) 02/20/17 02/20/17 02/20/17 Range/Units 00:45 05:47 07:17 PT (9.0-12.0) sec INR (<1.2) Sodium (137-145) mmol/L Creatinine (0.66-1.25) mg/dL Glucose (74-99) mg/dL POC Glucose (mg/dL) 113 H 129 H (75-99) mg/dL Calcium (8.4-10.2) mg/dL IgG 226.0 L (700.0-1600.0) mg/dL IgA <25.5 L (60.0-350.0) mg/dL IgM <16.9 L (40.0-280.0) mg/dL 02/20/17 02/20/17 02/20/17 Range/Units 07:17 11:07 12:16 PT 12.1 H (9.0-12.0) sec INR 1.2 H (<1.2) Sodium 131 L (137-145) mmol/L Creatinine 0.63 L (0.66-1.25) mg/dL Glucose 116 H (74-99) mg/dL POC Glucose (mg/dL) 117 H (75-99) mg/dL Calcium 7.5 L (8.4-10.2) mg/dL IgG (700.0-1600.0) mg/dL IgA (60.0-350.0) mg/dL IgM (40.0-280.0) mg/dL Microbiology - Last 24 Hours (Table) 02/17/17 14:53 Blood Culture - Preliminary Blood No Growth after 72 hours 02/17/17 14:36 Blood Culture - Preliminary Blood No Growth after 72 hours 02/17/17 07:50 Blood Culture - Preliminary Blood No Growth after 72 hours 02/17/17 22:35 Gram Stain - Preliminary Sputum Sputum Culture - Preliminary Presumptive Staph aureus Assessment and Plan Plan: Syncope, likely secondary to dehydration with hyponatremia/SIADH, fevers. 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 Plan: Continue on current medication regime ,monitoring and symptomatic treatment. Vancomycin, Merrem as per infectious disease. Continue following cultures closely maintain nebulized bronchodilators. IVIG ordered. Follow closely with multiple consults. The impression and plan of care has been dictated as directed as a scribe. : I performed a H&P examination of this patient and discussed the same with the dictator. I agree with the dictator's note. Any additional findings/opinions/ etc. will be noted.
--- NOTE | 2017-02-20 23:22 | P.PN ---
Subjective Principal diagnosis: sepsis 76-year-old male with a known history of chronic lymphocytic leukemia with not been any therapy up to this December. However that point in time he presented to Hospital feeling poorly. Had severe sore throat difficulty with chewing and swallowing. He was not feeling well. He was hospitalized at that time and treated with antibiotic therapy with concerns to pneumonia and high- grade fever. He also developed an extensive skin rash. Testing at our facility did confirm varicella-zoster which he had treatment for from beginning of his stay in December. Because of his ongoing difficulties with swallowing he was transferred to his oncologist at [facility]. 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 And he was initiated to Rituxan therapy. 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 He is not clear when his next treatment would be due. Last IgG level was 400. At this time the patient is still somewhat miserable. He is unaware of the events that occurred that led him to the hospital. He apparently was unconscious when the found him and she was concerned that there was seizure. He constantly was brought to Hospital by EMS. At this time he is sitting up right somewhat comfortable. He is oriented and able to converse although he is quite hard of hearing He was having significant pains earlier and is now more comfortable. His significant abdominal discomforts have improved. He does cough and has had fever does not relate to significant sputum production or hemoptysis. Still feels poorly Objective - Vital Signs Vital signs: Vital Signs Temp 99.9 F H 02/20/17 20:20 Pulse 79 02/20/17 20:20 Resp 16 02/20/17 20:20 BP 122/62 02/20/17 20:20 Pulse Ox 96 02/20/17 20:20 Intake & Output 02/20/17 02/20/17 02/21/17 06:59 18:59 06:59 Intake Total 780 520 Output Total 500 Balance 280 520 Weight 86.5 kg 86.5 kg Intake: Tube Feeding 780 520 Output: Urine 500 Other: Voiding Method Urinal Urinal # Voids 2 # Bowel Movements 1 - Exam 76-year-old male who appears older than his stated age. He is weak and ill in appearance relates he still has significant pain when he tries to swallow it feels like it's getting stuck just below his Rashad's apple. HEENT: Anicteric conjunctiva are pink and moist nasal mucosa grossly intact without significant lesions, there is no thrush. Dry crusting from the extensive herpetic lesion to his lips. Not actively bleeding. Is noted he had extensive thrush that is now resolved just has some dry oral cavity Neck: The neck is supple without significant lymphadenopathy or thyromegaly. Lungs: Good bilateral air entry there is evidence of crackles at the left base evidence of egophony at the left base with dullness. otherwise the chest is quite clear Heart: Regular rate and rhythm with an audible S1-S2, no S3 no S4. There is no significant murmur click or rub, PMI was nondisplaced. Abdomen: Positive bowel sounds soft and nontender without palpable masses or organomegaly. There was no guarding or rebound. PEG tube site is intact Extremities: The upper extremities have excellent pulses they are symmetric, no significant petechiae or telangiectasia. No splinter hemorrhages were noted. The lower extremities are free from significant edema. The peripheral pulses were 2+ and symmetric. Neuro: Awake alert oriented to person and place. Does not exhibit acute gross focal sensory motor deficits at this time - Labs CBC & Chem 7: 02/19/17 07:36 02/20/17 07:17 Labs: Abnormal Lab Results - Last 24 Hours (Table) 02/20/17 02/20/17 02/20/17 Range/Units 00:45 05:47 07:17 PT (9.0-12.0) sec INR (<1.2) Sodium (137-145) mmol/L Creatinine (0.66-1.25) mg/dL Glucose (74-99) mg/dL POC Glucose (mg/dL) 113 H 129 H (75-99) mg/dL Calcium (8.4-10.2) mg/dL IgG 226.0 L (700.0-1600.0) mg/dL IgA <25.5 L (60.0-350.0) mg/dL IgM <16.9 L (40.0-280.0) mg/dL 02/20/17 02/20/17 02/20/17 Range/Units 07:17 11:07 12:16 PT 12.1 H (9.0-12.0) sec INR 1.2 H (<1.2) Sodium 131 L (137-145) mmol/L Creatinine 0.63 L (0.66-1.25) mg/dL Glucose 116 H (74-99) mg/dL POC Glucose (mg/dL) 117 H (75-99) mg/dL Calcium 7.5 L (8.4-10.2) mg/dL IgG (700.0-1600.0) mg/dL IgA (60.0-350.0) mg/dL IgM (40.0-280.0) mg/dL Microbiology - Last 24 Hours (Table) 02/17/17 14:53 Blood Culture - Preliminary Blood No Growth after 72 hours 02/17/17 14:36 Blood Culture - Preliminary Blood No Growth after 72 hours 02/17/17 07:50 Blood Culture - Preliminary Blood No Growth after 72 hours Laboratory Results WBC 6.0 k/uL (3.8-10.6) 02/19/17 07:36 RBC 3.37 m/uL (4.30-5.90) L 02/19/17 07:36 Hgb 9.7 gm/dL (13.0-17.5) L 02/19/17 07:36 Hct 30.9 % (39.0-53.0) L 02/19/17 07:36 MCV 91.7 fL (80.0-100.0) 02/19/17 07:36 MCH 28.7 pg (25.0-35.0) 02/19/17 07:36 MCHC 31.3 g/dL (31.0-37.0) 02/19/17 07:36 RDW 20.5 % (11.5-15.5) H 02/19/17 07:36 Plt Count 163 k/uL (150-450) 02/19/17 07:36 Neutrophils % (Manual) 57 % 02/19/17 07:36 Band Neutrophils % 1 % 02/17/17 07:50 Lymphocytes % (Manual) 36 % 02/19/17 07:36 Monocytes % (Manual) 5 % 02/19/17 07:36 Eosinophils % (Manual) 2 % 02/19/17 07:36 Neutrophils # (Manual) 3.42 k/uL (1.3-7.7) 02/19/17 07:36 Lymphocytes # (Manual) 2.16 k/uL (1.0-4.8) 02/19/17 07:36 Monocytes # (Manual) 0.30 k/uL (0-1.0) 02/19/17 07:36 Eosinophils # (Manual) 0.12 k/uL (0-0.7) 02/19/17 07:36 Nucleated RBCs 0 /100 WBC (0-0) 02/19/17 07:36 Manual Slide Review Performed 02/19/17 07:36 Hypochromasia Marked 02/19/17 07:36 Poikilocytosis (manual Present 02/19/17 07:36 Anisocytosis Moderate 02/19/17 07:36 Macrocytosis Slight 02/19/17 07:36 PT 12.1 sec (9.0-12.0) H 02/20/17 11:07 INR 1.2 (<1.2) H 02/20/17 11:07 APTT 27.6 sec (22.0-30.0) 02/17/17 07:50 Sodium 131 mmol/L (137-145) L 02/20/17 07:17 Potassium 3.5 mmol/L (3.5-5.1) 02/20/17 07:17 Chloride 98 mmol/L (98-107) 02/20/17 07:17 Carbon Dioxide 29 mmol/L (22-30) 02/20/17 07:17 Anion Gap 4 mmol/L 02/20/17 07:17 BUN 12 mg/dL (9-20) 02/20/17 07:17 Creatinine 0.63 mg/dL (0.66-1.25) L 02/20/17 07:17 Est GFR (MDRD) Af Amer >60 (>60 ml/min/1.73 sqM) 02/20/17 07:17 Est GFR (MDRD) Non-Af >60 (>60 ml/min/1.73 sqM) 02/20/17 07:17 Glucose 116 mg/dL (74-99) H 02/20/17 07:17 POC Glucose (mg/dL) 117 mg/dL (75-99) H 02/20/17 12:16 POC Glu Corporate Controller ID Karthik Vargas 02/20/17 12:16 Osmolality 274 mosm/kg (280-301) L 02/18/17 07:26 Plasma Lactic Acid Jason 1.2 mmol/L (0.7-2.0) 02/17/17 07:50 Uric Acid 2.0 mg/dL (3.5-8.5) L 02/19/17 07:36 Calcium 7.5 mg/dL (8.4-10.2) L 02/20/17 07:17 Phosphorus 2.9 mg/dL (2.5-4.5) 02/17/17 07:50 Magnesium 1.8 mg/dL (1.6-2.3) 02/19/17 07:36 Total Bilirubin 0.5 mg/dL (0.2-1.3) 02/18/17 07:26 AST 29 U/L (17-59) 02/18/17 07:26 ALT 43 U/L (21-72) 02/18/17 07:26 Alkaline Phosphatase 52 U/L (38-126) 02/18/17 07:26 Total Creatine Kinase <20 U/L (55-170) L 02/17/17 07:50 CK-MB (CK-2) 0.3 ng/mL (0.0-2.4) 02/17/17 07:50 CK-MB (CK-2) Rel Index 02/17/17 07:50 Troponin I <0.012 ng/mL (0.000-0.034) 02/18/17 12:52 Total Protein 4.1 g/dL (6.3-8.2) L 02/18/17 07:26 Albumin 2.4 g/dL (3.5-5.0) L 02/18/17 07:26 TSH 5.540 mIU/L (0.465-4.680) H 02/19/17 07:36 Free T4 1.20 ng/dL (0.78-2.19) 02/19/17 07:36 Cortisol 18 ug/dL 02/19/17 07:36 Urine Color Yellow 02/17/17 07:50 Urine Appearance Clear (Clear) 02/17/17 07:50 Urine pH 8.0 (5.0-8.0) 02/17/17 07:50 Ur Specific [place] 1.010 (1.001-1.035) 02/17/17 07:50 Urine Protein Trace (Negative) H 02/17/17 07:50 Urine Glucose (UA) Negative (Negative) 02/17/17 07:50 Urine Ketones Negative (Negative) 02/17/17 07:50 Urine Blood Negative (Negative) 02/17/17 07:50 Urine Nitrite Negative (Negative) 02/17/17 07:50 Urine Bilirubin Negative (Negative) 02/17/17 07:50 Urine Urobilinogen <2.0 mg/dL (<2.0) 02/17/17 07:50 Ur Leukocyte Esterase Negative (Negative) 02/17/17 07:50 Urine Osmolality 793 mosm/kg (50-1400) 02/18/17 06:48 Ur Random Creatinine 63.8 mg/dL 02/17/17 07:50 Ur Random Sodium 141 mmol/L (30-90) H 02/18/17 06:48 Ur Random Potassium 43.7 mmol/L 02/17/17 07:50 Ur Random Urea Nitrogn 433.0 mg/dL 02/17/17 07:50 Ur Random Calcium 6.6 mg/dL 02/17/17 07:50 IgG 226.0 mg/dL (700.0-1600.0) L 02/20/17 07:17 IgA <25.5 mg/dL (60.0-350.0) L 02/20/17 07:17 IgM <16.9 mg/dL (40.0-280.0) L 02/20/17 07:17 Microbiology 02/17/17 14:53 Blood Blood Culture - Preliminary No Growth after 72 hours 02/17/17 14:36 Blood Blood Culture - Preliminary No Growth after 72 hours 02/17/17 07:50 Blood Blood Culture - Preliminary No Growth after 72 hours 02/17/17 22:35 Sputum Gram Stain - Preliminary 02/17/17 22:35 Sputum Sputum Culture - Preliminary Presumptive Staph aureus 02/17/17 07:50 Urine,Voided Urine Culture - Final 02/17/17 12:02 Sputum Gram Stain - Final 02/17/17 12:02 Sputum Sputum Culture - Final Assessment and Plan (1) Febrile illness, acute Status: Acute (2) Left lower lobe pneumonia Narrative/Plan: 76-year-old male noted infectious disease service for his 2 recent admissions. During the summer he had significant difficulties with the onset difficulty with swallowing and fevers and varicella-zoster. At that time there was concerns that his malignancy had changed. He was transferred her [facility] and biopsies of his tongue revealed evidence of the CLL transition to small cell lymphoma. He received Rituxan therapy. Was also noted to have hypogammaglobulinemia and he received IgG therapy. If not clear when his last IgG therapy was given. We have a more recent IgG level that appears to be low at just over 400. Oncology is following and will help determine the need for immunoglobulin replacement therapy at this time. Recent cultures are reviewed and there was evidence of Enterobacter and MRSA in his sputum. Given his current pneumonia with ensure that were covering for these pathogens with vancomycin. Zosyn will be need to change to meropenem given the Zosyn resistant nature of his Enterobacter that was recently found. Fortunately blood cultures are negative so far. His fever is starting to improve with IV Tylenol. His discomforts are improving. Nutrition is being given through his tube. His recent varicella-zoster is completely resolved. He is being followed by oncology and until he is well cannot receive further chemotherapy. Status: Acute (3) Small B-cell lymphoma Status: Acute
[2017-02-21] MEDS: diphenhydrAMINE 50 MG/ML 1 ML VIAL IVP PRN ×2 (00:29→14:05)
[2017-02-21] MEDS ORDERED: ACETAMINOPHEN IV (For NPO) 1,000 MG in EMPTY BAG 1 BAG IVPB ONE (04:07)
[2017-02-21] MEDS: LEVOTHYROXINE 125 MCG TAB PEG/G-TUBE SCH (06:06)
[2017-02-21] MEDS: SYMBICORT 160-4.5 MCG INHALER INHALATION SCH ×2 (07:09→19:30)
[2017-02-21] MEDS: MEROPENEM 1 GM in SODIUM CHLORIDE 0.9% 100 ML IVPB SCH ×2 (07:46→16:50)
[2017-02-21 07:57] LABS: Glucose,Whole Blood 95 mg/dL (75-99)
[2017-02-21] MEDS ORDERED: VANCOMYCIN TROUGH DUE 1 EACH MISC MISCELLANE ONE (08:00)
[2017-02-21 08:11] LABS: INR 1.2 (<1.2); Prothrombin Time 12.3 sec (9.0-12.0)
[2017-02-21 08:24] LABS: Anion Gap 1 mmol/L; Blood Urea Nitrogen 11 mg/dL (9-20); Calcium 7.5 mg/dL (8.4-10.2); Carbon Dioxide 32 mmol/L (22-30); Chloride 96 mmol/L (98-107); Glucose 86 mg/dL (74-99); Non-African American GFR(MDRD) >60 (>60 ml/min/1.73 sqM); Potassium 3.8 mmol/L (3.5-5.1); Sodium 129 mmol/L (137-145)
[2017-02-21] MEDS: DILTIAZEM ORAL 30 MG TAB PO SCH ×4 (09:05→22:07)
[2017-02-21] MEDS: NYSTATIN 100,000 UNIT/ML SUSP 500,000 UNIT/5 ML CUP PO SCH ×4 (09:05→22:07)
[2017-02-21] MEDS: ENOXAPARIN 40 MG/0.4 ML SYRINGE SQ SCH (09:05)
[2017-02-21] MEDS: VANCOMYCIN 1,500 MG in SODIUM CHLORIDE 0.9% 250 ML IVPB SCH ×2 (09:05→20:00)
[2017-02-21] MEDS: FUROSEMIDE 20 MG TAB PO SCH (09:06)
[2017-02-21] MEDS: MULTIVITAMINS, THERA 1 EACH TAB PEG/G-TUBE SCH (09:06)
[2017-02-21 11:34] LABS: Glucose,Whole Blood 88 mg/dL (75-99)
--- NOTE | 2017-02-21 11:47 | P.PN ---
Subjective patient still had fevers probably from lymphoma itself. 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 Patient is also receiving Lasix. Nephrology is managing this. Patient denied any nausea, vomiting, cough, abdominal pain, dysuria. Objective - Vital Signs Vital signs: Vital Signs Temp 98.6 F 02/21/17 07:00 Pulse 92 02/21/17 07:00 Resp 18 02/21/17 07:00 BP 110/59 02/21/17 07:00 Pulse Ox 96 02/20/17 20:20 Intake & Output 02/20/17 02/21/17 02/21/17 18:59 06:59 18:59 Intake Total 520 864.0 Balance 520 864.0 Weight 86.5 kg 86 kg Intake: Intake, IV Titration 84.0 Amount Immune Globulin (Human- 84.0 IgG) 20 gm In Empty Bag 1 bag @ Titrate IV .Q0M ONE Rx#:[id number] Tube Feeding 520 780 Other: Voiding Method Urinal Urinal # Voids 200 # Bowel Movements 1 - Exam GENERAL: Sitting up in bed, tired appearing, febrile HEENT: Conjunctivae normal. eyes normal. NECK: No JVD. No thyroid enlargement. CARDIOVASCULAR: S1, S2 muffled. No murmurs, rubs or gallops RESPIRATION: Bilateral bases diminished, no wheezing, no crackles, occ. rhonchi ABDOMEN: Soft, nontender . No guarding. no masses palpable. PEG tube present Bowel sounds heard. LEGS: No edema. no swelling PSYCHIATRY: Alert and oriented -3, mood and affect normal. 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 Diffuse weakness. No new focal deficits. No sensory deficit. Skin: no ulcer no rash - Labs CBC & Chem 7: 02/19/17 07:36 02/21/17 07:44 Labs: Abnormal Lab Results - Last 24 Hours (Table) 02/20/17 02/20/17 02/20/17 Range/Units 07:17 11:07 12:16 PT 12.1 H (9.0-12.0) sec INR 1.2 H (<1.2) Sodium (137-145) mmol/L Chloride (98-107) mmol/L Carbon Dioxide (22-30) mmol/L Creatinine (0.66-1.25) mg/dL POC Glucose (mg/dL) 117 H (75-99) mg/dL Calcium (8.4-10.2) mg/dL IgG 226.0 L (700.0-1600.0) mg/dL IgA <25.5 L (60.0-350.0) mg/dL IgM <16.9 L (40.0-280.0) mg/dL 02/21/17 02/21/17 Range/Units 07:44 07:44 PT 12.3 H (9.0-12.0) sec INR 1.2 H (<1.2) Sodium 129 L (137-145) mmol/L Chloride 96 L (98-107) mmol/L Carbon Dioxide 32 H (22-30) mmol/L Creatinine 0.60 L (0.66-1.25) mg/dL POC Glucose (mg/dL) (75-99) mg/dL Calcium 7.5 L (8.4-10.2) mg/dL IgG (700.0-1600.0) mg/dL IgA (60.0-350.0) mg/dL IgM (40.0-280.0) mg/dL Microbiology - Last 24 Hours (Table) 02/17/17 22:35 Gram Stain - Final Sputum Sputum Culture - Final Methicillin resist S. aureus 02/17/17 07:50 Blood Culture - Preliminary Blood No Growth after 96 hours 02/17/17 14:53 Blood Culture - Preliminary Blood No Growth after 72 hours 02/17/17 14:36 Blood Culture - Preliminary Blood No Growth after 72 hours Assessment and Plan Plan: Syncope, likely secondary to dehydration with hyponatremia/SIADH, fevers. Possible left lower lobe pneumonia versus atelectasis, presumptive staph currently in sputum; recent cultures of MRSA and Enterobacter [place] Fever, secondary to pneumonia COPD, inactive CLL Paroxysmal atrial fibrillation Hypothyroidism Fletcher's [id number] Dysphagia secondary to lymphoma, status post PEG tube placement maintained on tube feeds Recent varicella zoster infection. plan 70 with present antibiotics, monitor electrolytes including sodium possibly of discharge in a day or 2.
[2017-02-21] MEDS ORDERED: IMMUNE GLOBULIN (HUMAN-IGG) 20 GM in EMPTY BAG 1 BAG IV ONE (12:00)
--- NOTE | 2017-02-21 12:19 | P.PN ---
Subjective Progress note dated 02/20/2017 This is a 76-year-old male who we saw yesterday in consultation. His primary reason for admission with syncopal episode possibly related to underlying dehydration with orthostasis. 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 The patient was here previously and transferred to [facility]. The patient's back here now. Currently on antibiotics as per infectious disease. Currently on IV vancomycin and meropenem. The patient looks better today. Still has a left facial droop. No fever this far. Again Dr. Rondon is on the case as well. Progress note dated 02/21/2017 This is a 76-year-old male seen in consultation. The patient has a history of syncope, likely related to underlying dehydration and orthostasis. Also suffers from some SIADH with hyponatremia, possible left lower lobe pneumonia versus atelectasis, fever likely related to underlying pneumonia or another source, COPD, CLL, paroxysmal atrial fibrillation, hypothyroidism, and there are sella. 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 The patient was previously at [facility]. Transferred back here. Is currently on IV vancomycin and then meropenem. Continue to have fever spikes. The pneumonia although could be a different source. The patient himself feels well. No respiratory complaints. No pain. No and no other major issues or complaints. Objective - Vital Signs Vital signs: Vital Signs Temp 98.6 F 02/21/17 07:00 Pulse 92 02/21/17 07:00 Resp 18 02/21/17 07:00 BP 110/59 02/21/17 07:00 Pulse Ox 96 02/20/17 20:20 Intake & Output 02/20/17 02/21/17 02/21/17 18:59 06:59 18:59 Intake Total 520 864.0 Balance 520 864.0 Weight 86.5 kg 86 kg Intake: Intake, IV Titration 84.0 Amount Immune Globulin (Human- 84.0 IgG) 20 gm In Empty Bag 1 bag @ Titrate IV .Q0M ONE Rx#:[id number] Tube Feeding 520 780 Other: Voiding Method Urinal Urinal # Voids 200 # Bowel Movements 1 - Exam No acute distress, oriented 3. Obvious left facial droop. HEENT examination is grossly unremarkable. Neck supple. Full range of motion. Cardiovascular examination reveals regular rhythm rate. S1-S2 normal. Lungs reveal mostly clear breath sounds. A few scattered rhonchi. Abdomen soft bowel sounds are heard. Extremities are intact. No cyanosis clubbing or edema. Skin is with normal range. Other than the left facial droop, the rest of the neurologic examination is unremarkable. - Labs CBC & Chem 7: 02/19/17 07:36 02/21/17 07:44 Labs: Abnormal Lab Results - Last 24 Hours (Table) 02/20/17 02/20/17 02/21/17 Range/Units 07:17 12:16 07:44 PT 12.3 H (9.0-12.0) sec INR 1.2 H (<1.2) Sodium (137-145) mmol/L Chloride (98-107) mmol/L Carbon Dioxide (22-30) mmol/L Creatinine (0.66-1.25) mg/dL POC Glucose (mg/dL) 117 H (75-99) mg/dL Calcium (8.4-10.2) mg/dL IgG 226.0 L (700.0-1600.0) mg/dL IgA <25.5 L (60.0-350.0) mg/dL IgM <16.9 L (40.0-280.0) mg/dL 02/21/17 Range/Units 07:44 PT (9.0-12.0) sec INR (<1.2) Sodium 129 L (137-145) mmol/L Chloride 96 L (98-107) mmol/L Carbon Dioxide 32 H (22-30) mmol/L Creatinine 0.60 L (0.66-1.25) mg/dL POC Glucose (mg/dL) (75-99) mg/dL Calcium 7.5 L (8.4-10.2) mg/dL IgG (700.0-1600.0) mg/dL IgA (60.0-350.0) mg/dL IgM (40.0-280.0) mg/dL Microbiology - Last 24 Hours (Table) 02/17/17 22:35 Gram Stain - Final Sputum Sputum Culture - Final Methicillin resist S. aureus 02/17/17 07:50 Blood Culture - Preliminary Blood No Growth after 96 hours 02/17/17 14:53 Blood Culture - Preliminary Blood No Growth after 72 hours 02/17/17 14:36 Blood Culture - Preliminary Blood No Growth after 72 hours Assessment and Plan Plan: Assessment and plan dated 02/20/2017 Syncope, likely secondary to dehydration with orthostasis her graft hyponatremia /SIADH Possible left lower lobe pneumonia versus atelectasis secondary to MRSA and Enterobacter Fever, secondary to pneumonia COPD, inactive CLL Paroxysmal atrial fibrillation Hypothyroidism Chickenpox Fletcher's palsy Dysphagia Plan The patient will continue on the vancomycin and meropenem as per infectious disease. From the pulmonary standpoint, the patient is doing reasonably well on bronchodilators and Symbicort. Pulmonary status is relatively stable. I'm not even sure that he actually has pneumonia at this time. We'll continue to follow. He appears more strong today and more alert and awake. Still has the obvious left facial droop. We'll continue to follow. Plan dated 02/21/2017 The patient will have another chest x-ray performed. Continue antibiotics. We' ll continue to watch the patient carefully. Also ordered some additional blood cultures. No additional recommendations are made. Prognosis is guarded. Time with Patient: Less than 30
[2017-02-21] MEDS ORDERED: diphenhydrAMINE 50 MG/ML 1 ML VIAL IVP PRN (13:37)
--- NOTE | 2017-02-21 14:08 | XR ---
EXAMINATION TYPE: XR chest 2V DATE OF EXAM: 02/21/2017 COMPARISON: NONE HISTORY: Left lower lobe pneumonia TECHNIQUE: Frontal and lateral views of the chest are obtained. FINDINGS: There is improved aeration of the left lung base with decreased degree of left basilar con solidation and trace left parapneumonic effusion. Pulmonary hyperinflation is again noted as well as biapical lucency compatible with underlying COPD. Heart size is again stable. Cardiomediastinal silho uette is within normal limits. Degenerative changes of the thoracic spine are again noted. IMPRESSION: Improving left lower lobe pneumonia with trace parapneumonic effusion.
[2017-02-21] MEDS ORDERED: ACETAMINOPHEN IV (For NPO) 1,000 MG in EMPTY BAG 1 BAG IVPB STA (16:34)
--- NOTE | 2017-02-21 17:51 | P.PN ---
Subjective Patient is seen in follow-up for hyponatremia. Sodium level is 129 today. He is currently maintained on tube feeds. Patient is not able to tolerate oral intake due to tumor infiltration and dysphagia. Hemodynamically he is stable. Admits to good urine output. He is currently being treated for left lower lobe pneumonia. Sputum culture is positive for MRSA. He is noted to have a temperature of 102F from earlier today. He is also receiving IVIG. Vital signs are stable. General: The patient appeared well nourished and normally developed. HEENT: Head exam is unremarkable. Neck is without jugular venous distension. LUNGS: Lungs are clear to auscultation and percussion. Breath sounds decreased. HEART: Rate and Rhythm are regular. First and second heart sounds normal. No murmurs, rubs or gallops. ABDOMEN: Abdominal exam reveals normal bowel sounds. Non-tender and non- distended. No evidence of peritonitis. EXTREMITITES: No clubbing, cyanosis, or edema. Objective - Vital Signs Vital signs: Vital Signs Temp 102.2 F H 02/21/17 15:00 Pulse 102 H 02/21/17 15:52 Resp 20 02/21/17 15:52 BP 120/68 02/21/17 15:00 Pulse Ox 91 L 02/21/17 15:00 Intake & Output 02/20/17 02/21/17 02/21/17 18:59 06:59 18:59 Intake Total 520 864.0 525.833 Output Total 200 Balance 520 864.0 325.833 Weight 86.5 kg 86 kg 86 kg Intake: Intake, IV Titration 84.0 5.833 Amount Immune Globulin (Human- 84.0 IgG) 20 gm In Empty Bag 1 bag @ Titrate IV .Q0M ONE Rx#:[id number] Immune Globulin (Human- 5.833 IgG) 20 gm In Empty Bag 1 bag @ Titrate IV .Q0M ONE Rx#:[id number] Tube Feeding 520 780 520 Output: Urine 200 Other: Voiding Method Urinal Urinal Urinal # Voids 200 200 # Bowel Movements 1 - Labs CBC & Chem 7: 02/19/17 07:36 02/21/17 07:44 Labs: Abnormal Lab Results - Last 24 Hours (Table) 02/21/17 02/21/17 Range/Units 07:44 07:44 PT 12.3 H (9.0-12.0) sec INR 1.2 H (<1.2) Sodium 129 L (137-145) mmol/L Chloride 96 L (98-107) mmol/L Carbon Dioxide 32 H (22-30) mmol/L Creatinine 0.60 L (0.66-1.25) mg/dL Calcium 7.5 L (8.4-10.2) mg/dL Microbiology - Last 24 Hours (Table) 02/17/17 14:53 Blood Culture - Preliminary Blood No Growth after 96 hours 02/17/17 14:36 Blood Culture - Preliminary Blood No Growth after 96 hours 02/17/17 22:35 Gram Stain - Final Sputum Sputum Culture - Final Methicillin resist S. aureus 02/17/17 07:50 Blood Culture - Preliminary Blood No Growth after 96 hours Assessment and Plan Plan: Assessment: #1. Hyponatremia. It appears patient was slightly hypovolemic initially as he wasn't receiving his tube feeds and was also a little hypotensive. Now appears euvolemic. Most recent sodium level is 129 as of this morning. Now due to SIADH from the pneumonia. High urine sodium, high urine osmolality and low uric acid also suggestive of SIADH. #2. History of dysphagia status post PEG tube placement maintained on tube feeds. #3. Pneumonia maintained on antibiotics. Infectious disease following. #4. Hypokalemia related to his nutritional status and diuretics. Magnesium replete. Improved. Plan: Discontinued normal saline. Maintain tube feeds. Continue 20 mg oral Lasix once daily. Further decrease free water to 30 mL every 6 hours. Repeat electrolytes in the morning.
[2017-02-21] MEDS ORDERED: WARFARIN 10 MG TAB PO ONE (18:00)
[2017-02-21 18:47] LABS: Glucose,Whole Blood 123 mg/dL (75-99)
[2017-02-22 00:08] LABS: Glucose,Whole Blood 103 mg/dL (75-99)
[2017-02-22] MEDS: MEROPENEM 1 GM in SODIUM CHLORIDE 0.9% 100 ML IVPB SCH ×4 (00:38→23:33)
[2017-02-22] MEDS ORDERED: ACETAMINOPHEN IV (For NPO) 1,000 MG in EMPTY BAG 1 BAG IVPB ONE ×2 (01:45→19:47)
[2017-02-22] MEDS: LEVOTHYROXINE 125 MCG TAB PEG/G-TUBE SCH (06:10)
[2017-02-22 06:15] LABS: Glucose,Whole Blood 122 mg/dL (75-99)
[2017-02-22 07:26] LABS: INR 1.5 (<1.2)
[2017-02-22 07:44] LABS: Anion Gap 3 mmol/L; Blood Urea Nitrogen 17 mg/dL (9-20); Calcium 7.6 mg/dL (8.4-10.2); Carbon Dioxide 33 mmol/L (22-30); Chloride 94 mmol/L (98-107); Glucose 108 mg/dL (74-99); Non-African American GFR(MDRD) >60 (>60 ml/min/1.73 sqM); Potassium 3.6 mmol/L (3.5-5.1); Sodium 130 mmol/L (137-145)
[2017-02-22 07:47] LABS: Anisocytosis Slight; CH 27.5; CHCM 30.4; HCT 29.7 % (39.0-53.0); HDW 3.07; HGB 9.2 gm/dL (13.0-17.5); Hypochromasia Marked; MCH 28.1 pg (25.0-35.0); MCHC 30.9 g/dL (31.0-37.0); MCV 90.9 fL (80.0-100.0); Mean Platelet Volume 8.1; RBC 3.27 m/uL (4.30-5.90); RDW 19.7 % (11.5-15.5); WBC 3.8 k/uL (3.8-10.6)
[2017-02-22] MEDS: DILTIAZEM ORAL 30 MG TAB PO SCH ×4 (08:23→20:39)
[2017-02-22] MEDS: NYSTATIN 100,000 UNIT/ML SUSP 500,000 UNIT/5 ML CUP PO SCH ×4 (08:25→20:39)
[2017-02-22] MEDS: ENOXAPARIN 40 MG/0.4 ML SYRINGE SQ SCH (08:25)
[2017-02-22] MEDS: FUROSEMIDE 20 MG TAB PO SCH (08:26)
[2017-02-22] MEDS: SYMBICORT 160-4.5 MCG INHALER INHALATION SCH ×3 (08:42→19:18)
[2017-02-22] MEDS: VANCOMYCIN 1,500 MG in SODIUM CHLORIDE 0.9% 250 ML IVPB SCH ×2 (10:57→19:26)
--- NOTE | 2017-02-22 11:07 | P.PN ---
Subjective Patient is seen in follow-up for hyponatremia. Sodium level is 130 today. He is currently maintained on tube feeds. Patient is not able to tolerate oral intake due to tumor infiltration and dysphagia. Hemodynamically he is stable although BP on lower side today. Admits to good urine output. He is currently being treated with broad-spectrum antibiotics for left lower lobe pneumonia. Sputum culture is positive for MRSA. He is noted to be febrile which has been attributed to CLL. Vital signs are stable. General: The patient appeared well nourished and normally developed. HEENT: Head exam is unremarkable. Neck is without jugular venous distension. LUNGS: Lungs are clear to auscultation and percussion. Breath sounds decreased. HEART: Rate and Rhythm are regular. First and second heart sounds normal. No murmurs, rubs or gallops. ABDOMEN: Abdominal exam reveals normal bowel sounds. Non-tender and non- distended. No evidence of peritonitis. EXTREMITITES: No clubbing, cyanosis, or edema. Objective - Vital Signs Vital signs: Vital Signs Temp 98.8 F 02/22/17 07:00 Pulse 88 02/22/17 07:00 Resp 18 02/22/17 07:00 BP 99/54 02/22/17 07:00 Pulse Ox 92 L 02/21/17 20:40 Intake & Output 02/21/17 02/22/17 02/22/17 18:59 06:59 18:59 Intake Total 895.866 8244.333 Output Total 200 150 Balance 872.974 8582.333 Weight 86 kg 87.5 kg Intake: Intake, IV Titration 5.833 808.333 Amount ACETAMINOPHEN IV (For NPO 400 ) 1,000 mg In Empty Bag 1 bag @ 400 mls/hr IVPB ONCE ONE Rx#:[id number] Immune Globulin (Human- 5.833 IgG) 20 gm In Empty Bag 1 bag @ Titrate IV .Q0M ONE Rx#:[id number] Immune Globulin (Human- 58.333 IgG) 20 gm In Empty Bag 1 bag @ Titrate IV .Q0M ONE Rx#:[id number] Meropenem 1 gm In Sodium 100 Chloride 0.9% 100 ml @ 100 mls/hr IVPB Q8HR [facility] Rx#:[id number] Vancomycin 1,500 mg In 250 Sodium Chloride 0.9% 250 ml @ 125 mls/hr IVPB Q12HR [facility] Rx#:[id number] Tube Feeding 520 780 Output: Urine 200 150 Other: Voiding Method Urinal Urinal Urinal # Voids 200 4 # Bowel Movements 1 - Labs CBC & Chem 7: 02/22/17 07:02 02/22/17 07:02 Labs: Abnormal Lab Results - Last 24 Hours (Table) 02/21/17 02/22/17 02/22/17 Range/Units 18:45 00:05 06:13 RBC (4.30-5.90) m/uL Hgb (13.0-17.5) gm/dL Hct (39.0-53.0) % MCHC (31.0-37.0) g/dL RDW (11.5-15.5) % Plt Count (150-450) k/uL PT (9.0-12.0) sec INR (<1.2) Sodium (137-145) mmol/L Chloride (98-107) mmol/L Carbon Dioxide (22-30) mmol/L Glucose (74-99) mg/dL POC Glucose (mg/dL) 123 H 103 H 122 H (75-99) mg/dL Calcium (8.4-10.2) mg/dL 02/22/17 02/22/17 02/22/17 Range/Units 07:02 07:02 07:02 RBC 3.27 L (4.30-5.90) m/uL Hgb 9.2 L (13.0-17.5) gm/dL Hct 29.7 L (39.0-53.0) % MCHC 30.9 L (31.0-37.0) g/dL RDW 19.7 H (11.5-15.5) % Plt Count 99 L (150-450) k/uL PT 15.0 H (9.0-12.0) sec INR 1.5 H (<1.2) Sodium 130 L (137-145) mmol/L Chloride 94 L (98-107) mmol/L Carbon Dioxide 33 H (22-30) mmol/L Glucose 108 H (74-99) mg/dL POC Glucose (mg/dL) (75-99) mg/dL Calcium 7.6 L (8.4-10.2) mg/dL Microbiology - Last 24 Hours (Table) 02/17/17 07:50 Blood Culture - Preliminary Blood No Growth after 120 hours 02/17/17 14:53 Blood Culture - Preliminary Blood No Growth after 96 hours 02/17/17 14:36 Blood Culture - Preliminary Blood No Growth after 96 hours 02/17/17 22:35 Gram Stain - Final Sputum Sputum Culture - Final Methicillin resist S. aureus Assessment and Plan Plan: Assessment: #1. Hyponatremia. It appears patient was slightly hypovolemic initially as he wasn't receiving his tube feeds and was also a little hypotensive. Now appears euvolemic. Most recent sodium level is 130 as of this morning. Now due to SIADH from the pneumonia. High urine sodium, high urine osmolality and low uric acid also suggestive of SIADH. #2. History of dysphagia status post PEG tube placement maintained on tube feeds. #3. Pneumonia maintained on antibiotics. Infectious disease following. #4. Hypokalemia related to his nutritional status and diuretics. Magnesium replete. Improved. #5. CLL. Plan: Discontinued normal saline. Maintain tube feeds. Continue 20 mg oral Lasix once daily. Further decreased free water to 30 mL every 6 hours. Repeat electrolytes in the morning. 20 meq KCL today. Check Mg level.
--- NOTE | 2017-02-22 11:14 | P.PN ---
Subjective Progress note dated 02/20/2017 This is a 76-year-old male who we saw yesterday in consultation. His primary reason for admission with syncopal episode possibly related to underlying dehydration with orthostasis. 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 The patient was here previously and transferred to [facility]. The patient's back here now. Currently on antibiotics as per infectious disease. Currently on IV vancomycin and meropenem. The patient looks better today. Still has a left facial droop. No fever this far. Again Dr. Rondon is on the case as well. Progress note dated 02/21/2017 This is a 76-year-old male seen in consultation. The patient has a history of syncope, likely related to underlying dehydration and orthostasis. Also suffers from some SIADH with hyponatremia, possible left lower lobe pneumonia versus atelectasis, fever likely related to underlying pneumonia or another source, COPD, CLL, paroxysmal atrial fibrillation, hypothyroidism, and there are sella. 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 The patient was previously at [facility]. Transferred back here. Is currently on IV vancomycin and then meropenem. Continue to have fever spikes. The pneumonia although could be a different source. The patient himself feels well. No respiratory complaints. No pain. No and no other major issues or complaints. Progress note dated 02/22/2017 76-year-old male who was seen in consultation at couple days ago. Well-known to our service. Came in initially with an episode of syncope, likely related to underlying dehydration and orthostasis. Also has a history of SIADH with hyponatremia mild left lower lobe pneumonia fever likely related to pneumonia COPD CLL paroxysmal atrial fibrillation hypothyroidism and rash secondary to varicella. Also has a left facial droop secondary to Fletcher's palsy. Today's chest x-rays improved. The left lower lobe infiltrates better. Clinically the patient looks better. He continues on vancomycin and meropenem as per Dr. Rondon and infectious disease doctor. No other complaints. Still with persistent left facial droop. Overall status seems improved though. Objective - Vital Signs Vital signs: Vital Signs Temp 98.8 F 02/22/17 07:00 Pulse 88 02/22/17 07:00 Resp 18 02/22/17 07:00 BP 99/54 02/22/17 07:00 Pulse Ox 92 L 02/21/17 20:40 Intake & Output 02/21/17 02/22/17 02/22/17 18:59 06:59 18:59 Intake Total 881.391 3908.333 Output Total 200 150 Balance 986.666 4785.333 Weight 86 kg 87.5 kg Intake: Intake, IV Titration 5.833 808.333 Amount ACETAMINOPHEN IV (For NPO 400 ) 1,000 mg In Empty Bag 1 bag @ 400 mls/hr IVPB ONCE ONE Rx#:[id number] Immune Globulin (Human- 5.833 IgG) 20 gm In Empty Bag 1 bag @ Titrate IV .Q0M ONE Rx#:[id number] Immune Globulin (Human- 58.333 IgG) 20 gm In Empty Bag 1 bag @ Titrate IV .Q0M ONE Rx#:[id number] Meropenem 1 gm In Sodium 100 Chloride 0.9% 100 ml @ 100 mls/hr IVPB Q8HR [facility] Rx#:[id number] Vancomycin 1,500 mg In 250 Sodium Chloride 0.9% 250 ml @ 125 mls/hr IVPB Q12HR [facility] Rx#:[id number] Tube Feeding 520 780 Output: Urine 200 150 Other: Voiding Method Urinal Urinal Urinal # Voids 200 4 # Bowel Movements 1 - Exam No acute distress, oriented 3. Obvious left facial droop. HEENT examination is grossly unremarkable. Neck supple. Full range of motion. Cardiovascular examination reveals regular rhythm rate. S1-S2 normal. Lungs reveal mostly clear breath sounds. A few scattered rhonchi. Abdomen soft bowel sounds are heard. Extremities are intact. No cyanosis clubbing or edema. Skin is with normal range. Other than the left facial droop, the rest of the neurologic examination is unremarkable. - Labs CBC & Chem 7: 02/22/17 07:02 02/22/17 07:02 Labs: Abnormal Lab Results - Last 24 Hours (Table) 02/21/17 02/22/17 02/22/17 Range/Units 18:45 00:05 06:13 RBC (4.30-5.90) m/uL Hgb (13.0-17.5) gm/dL Hct (39.0-53.0) % MCHC (31.0-37.0) g/dL RDW (11.5-15.5) % Plt Count (150-450) k/uL PT (9.0-12.0) sec INR (<1.2) Sodium (137-145) mmol/L Chloride (98-107) mmol/L Carbon Dioxide (22-30) mmol/L Glucose (74-99) mg/dL POC Glucose (mg/dL) 123 H 103 H 122 H (75-99) mg/dL Calcium (8.4-10.2) mg/dL 02/22/17 02/22/17 02/22/17 Range/Units 07:02 07:02 07:02 RBC 3.27 L (4.30-5.90) m/uL Hgb 9.2 L (13.0-17.5) gm/dL Hct 29.7 L (39.0-53.0) % MCHC 30.9 L (31.0-37.0) g/dL RDW 19.7 H (11.5-15.5) % Plt Count 99 L (150-450) k/uL PT 15.0 H (9.0-12.0) sec INR 1.5 H (<1.2) Sodium 130 L (137-145) mmol/L Chloride 94 L (98-107) mmol/L Carbon Dioxide 33 H (22-30) mmol/L Glucose 108 H (74-99) mg/dL POC Glucose (mg/dL) (75-99) mg/dL Calcium 7.6 L (8.4-10.2) mg/dL Microbiology - Last 24 Hours (Table) 02/17/17 07:50 Blood Culture - Preliminary Blood No Growth after 120 hours 02/17/17 14:53 Blood Culture - Preliminary Blood No Growth after 96 hours 02/17/17 14:36 Blood Culture - Preliminary Blood No Growth after 96 hours 02/17/17 22:35 Gram Stain - Final Sputum Sputum Culture - Final Methicillin resist S. aureus Assessment and Plan (1) Fever Status: Acute (2) Hypogammaglobulinemia Status: Acute (3) Left lower lobe pneumonia Status: Acute (4) Small cell B-cell lymphoma, unspecified site Status: Acute (5) Altered mental status Status: Chronic (6) CLL (chronic lymphocytic leukemia) Status: Chronic (7) Atrial fibrillation Status: Acute (8) Leukemia Status: Acute (9) Pneumonia Status: Acute (10) Sepsis Status: Acute (11) COPD (chronic obstructive pulmonary disease) Status: Chronic (12) Hypothyroidism Status: Chronic Plan: Assessment and plan dated 02/20/2017 Syncope, likely secondary to dehydration with orthostasis her graft hyponatremia /SIADH Possible left lower lobe pneumonia versus atelectasis secondary to MRSA and Enterobacter Fever, secondary to pneumonia COPD, inactive CLL Paroxysmal atrial fibrillation Hypothyroidism Chickenpox Fletcher's palsy Dysphagia Plan The patient will continue on the vancomycin and meropenem as per infectious disease. From the pulmonary standpoint, the patient is doing reasonably well on bronchodilators and Symbicort. Pulmonary status is relatively stable. I'm not even sure that he actually has pneumonia at this time. We'll continue to follow. He appears more strong today and more alert and awake. Still has the obvious left facial droop. We'll continue to follow. Plan dated 02/21/2017 The patient will have another chest x-ray performed. Continue antibiotics. We' ll continue to watch the patient carefully. Also ordered some additional blood cultures. No additional recommendations are made. Prognosis is guarded. Plan dated 02/22/2017 Seems to be improved. Chest x-rays a bit improved. Respiratory status is stable. We'll continue to follow. Continues on vancomycin and meropenem. Less temperature elevations over last 24 hours. No additional recommendations are made. Prognosis is guarded. Time with Patient: Less than 30
--- NOTE | 2017-02-22 11:31 | P.PN ---
Subjective patient still had fevers probably from lymphoma itself. 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 Patient is also receiving Lasix. Nephrology is managing this. 02/22/2017 Patient is feeling much better today no overnight events. Will get PT and OT to see the patient possibility of discharge tomorrow or day after sodium did improve. Patient denied any nausea, vomiting, cough, abdominal pain, dysuria. Objective - Vital Signs Vital signs: Vital Signs Temp 98.8 F 02/22/17 07:00 Pulse 88 02/22/17 07:00 Resp 18 02/22/17 07:00 BP 99/54 02/22/17 07:00 Pulse Ox 92 L 02/21/17 20:40 Intake & Output 02/21/17 02/22/17 02/22/17 18:59 06:59 18:59 Intake Total 076.855 7920.333 Output Total 200 150 Balance 396.307 7064.333 Weight 86 kg 87.5 kg Intake: Intake, IV Titration 5.833 808.333 Amount ACETAMINOPHEN IV (For NPO 400 ) 1,000 mg In Empty Bag 1 bag @ 400 mls/hr IVPB ONCE ONE Rx#:[id number] Immune Globulin (Human- 5.833 IgG) 20 gm In Empty Bag 1 bag @ Titrate IV .Q0M ONE Rx#:[id number] Immune Globulin (Human- 58.333 IgG) 20 gm In Empty Bag 1 bag @ Titrate IV .Q0M ONE Rx#:[id number] Meropenem 1 gm In Sodium 100 Chloride 0.9% 100 ml @ 100 mls/hr IVPB Q8HR [facility] Rx#:[id number] Vancomycin 1,500 mg In 250 Sodium Chloride 0.9% 250 ml @ 125 mls/hr IVPB Q12HR [facility] Rx#:[id number] Tube Feeding 520 780 Output: Urine 200 150 Other: Voiding Method Urinal Urinal Urinal # Voids 200 4 # Bowel Movements 1 - Exam GENERAL: Sitting up in bed, tired appearing, febrile HEENT: Conjunctivae normal. eyes normal. NECK: No JVD. No thyroid enlargement. CARDIOVASCULAR: S1, S2 muffled. No murmurs, rubs or gallops RESPIRATION: Bilateral bases diminished, no wheezing, no crackles, occ. rhonchi ABDOMEN: Soft, nontender . No guarding. no masses palpable. PEG tube present Bowel sounds heard. LEGS: No edema. no swelling PSYCHIATRY: Alert and oriented -3, mood and affect normal. 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 Diffuse weakness. No new focal deficits. No sensory deficit. Skin: no ulcer no rash - Labs CBC & Chem 7: 02/22/17 07:02 02/22/17 07:02 Labs: Abnormal Lab Results - Last 24 Hours (Table) 02/21/17 02/22/17 02/22/17 Range/Units 18:45 00:05 06:13 RBC (4.30-5.90) m/uL Hgb (13.0-17.5) gm/dL Hct (39.0-53.0) % MCHC (31.0-37.0) g/dL RDW (11.5-15.5) % Plt Count (150-450) k/uL PT (9.0-12.0) sec INR (<1.2) Sodium (137-145) mmol/L Chloride (98-107) mmol/L Carbon Dioxide (22-30) mmol/L Glucose (74-99) mg/dL POC Glucose (mg/dL) 123 H 103 H 122 H (75-99) mg/dL Calcium (8.4-10.2) mg/dL 02/22/17 02/22/17 02/22/17 Range/Units 07:02 07:02 07:02 RBC 3.27 L (4.30-5.90) m/uL Hgb 9.2 L (13.0-17.5) gm/dL Hct 29.7 L (39.0-53.0) % MCHC 30.9 L (31.0-37.0) g/dL RDW 19.7 H (11.5-15.5) % Plt Count 99 L (150-450) k/uL PT 15.0 H (9.0-12.0) sec INR 1.5 H (<1.2) Sodium 130 L (137-145) mmol/L Chloride 94 L (98-107) mmol/L Carbon Dioxide 33 H (22-30) mmol/L Glucose 108 H (74-99) mg/dL POC Glucose (mg/dL) (75-99) mg/dL Calcium 7.6 L (8.4-10.2) mg/dL Microbiology - Last 24 Hours (Table) 02/17/17 07:50 Blood Culture - Preliminary Blood No Growth after 120 hours 02/17/17 14:53 Blood Culture - Preliminary Blood No Growth after 96 hours 02/17/17 14:36 Blood Culture - Preliminary Blood No Growth after 96 hours 02/17/17 22:35 Gram Stain - Final Sputum Sputum Culture - Final Methicillin resist S. aureus Assessment and Plan Plan: Syncope, likely secondary to dehydration with hyponatremia/SIADH, fevers. Possible left lower lobe pneumonia versus atelectasis, presumptive staph currently in sputum; recent cultures of MRSA and Enterobacter Kulwicki Fever, secondary to pneumonia COPD, inactive CLL Paroxysmal atrial fibrillation Hypothyroidism Fletcher's [id number] Dysphagia secondary to lymphoma, status post PEG tube placement maintained on tube feeds Recent varicella zoster infection. plan 70 with present antibiotics, monitor electrolytes including sodium possibly of discharge in a day or 2.
[2017-02-22 12:05] LABS: Glucose,Whole Blood 111 mg/dL (75-99)
[2017-02-22] MEDS ORDERED: ACETAMINOPHEN IV (For NPO) 1,000 MG in EMPTY BAG 1 BAG IVPB STA (12:13)
[2017-02-22] MEDS: MULTIVITAMINS, THERA 1 EACH TAB PEG/G-TUBE SCH (12:33)
[2017-02-22] MEDS: POTASSIUM CHLORIDE 10 MEQ, LIDOCAINE 2% INJ 10 MG in SODIUM CHLORIDE 0.9% 100 ML IVPB SCH ×2 (12:58→16:00)
[2017-02-22 17:23] LABS: Glucose,Whole Blood 124 mg/dL (75-99)
[2017-02-22] MEDS ORDERED: WARFARIN 5 MG TAB PO SCH (18:00)
[2017-02-22] MEDS: IPRATROPIUM-ALBUTEROL 3 ML NEB INHALATION PRN (19:01)
[2017-02-22] MEDS ORDERED: IBUPROFEN 600 MG TAB PO PRN (21:31)
[2017-02-23 00:36] LABS: Glucose,Whole Blood 130 mg/dL (75-99)
[2017-02-23] MEDS: LORazepam 1 MG TAB PO PRN ×2 (01:17→22:48)
[2017-02-23] MEDS: LEVOTHYROXINE 125 MCG TAB PEG/G-TUBE SCH (06:16)
[2017-02-23 06:22] LABS: Glucose,Whole Blood 126 mg/dL (75-99)
[2017-02-23] MEDS: SYMBICORT 160-4.5 MCG INHALER INHALATION SCH ×2 (07:24→19:58)
[2017-02-23 07:30] LABS: Anion Gap 4 mmol/L; Blood Urea Nitrogen 18 mg/dL (9-20); Calcium 7.8 mg/dL (8.4-10.2); Carbon Dioxide 26 mmol/L (22-30); Chloride 98 mmol/L (98-107); Glucose 120 mg/dL (74-99); Magnesium 1.6 mg/dL (1.6-2.3); Non-African American GFR(MDRD) >60 (>60 ml/min/1.73 sqM); Potassium 4.5 mmol/L (3.5-5.1); Sodium 128 mmol/L (137-145)
[2017-02-23] MEDS: MEROPENEM 1 GM in SODIUM CHLORIDE 0.9% 100 ML IVPB SCH ×2 (08:12→15:09)
[2017-02-23] MEDS: ACETAMINOPHEN TAB 325 MG TAB PO PRN ×2 (08:12→17:36)
[2017-02-23] MEDS: ENOXAPARIN 40 MG/0.4 ML SYRINGE SQ SCH (08:14)
[2017-02-23] MEDS: FUROSEMIDE 20 MG TAB PO SCH ×2 (08:14→17:36)
[2017-02-23] MEDS: DILTIAZEM ORAL 30 MG TAB PO SCH ×4 (08:14→22:46)
[2017-02-23] MEDS: NYSTATIN 100,000 UNIT/ML SUSP 500,000 UNIT/5 ML CUP PO SCH ×4 (08:14→21:35)
[2017-02-23] MEDS ORDERED: VANCOMYCIN TROUGH DUE 1 EACH MISC MISCELLANE ONE (08:45)
[2017-02-23 09:34] LABS: INR 1.4 (<1.2); Prothrombin Time 13.8 sec (9.0-12.0)
[2017-02-23] MEDS: VANCOMYCIN 1,500 MG in SODIUM CHLORIDE 0.9% 250 ML IVPB SCH (09:57)
[2017-02-23] MEDS: MAGNESIUM SULFATE-D5W PMX 1 GM in DEXTROSE/WATER 1 100ML.BAG IVPB SCH ×2 (09:58→11:51)
--- NOTE | 2017-02-23 10:20 | P.PN ---
Subjective Patient is seen in follow-up for hyponatremia. Sodium level is 128 today. He is currently maintained on tube feeds. Patient is not able to tolerate oral intake due to tumor infiltration and dysphagia. Hemodynamically he is stable. Admits to good urine output. He is currently being treated with broad-spectrum antibiotics for left lower lobe pneumonia. Sputum culture is positive for MRSA. He is noted to be febrile which has been attributed to CLL. He did have 1 episode of emesis yesterday. Vital signs are stable. General: The patient appeared well nourished and normally developed. HEENT: Head exam is unremarkable. Neck is without jugular venous distension. LUNGS: Lungs are clear to auscultation and percussion. Breath sounds decreased. HEART: Rate and Rhythm are regular. First and second heart sounds normal. No murmurs, rubs or gallops. ABDOMEN: Abdominal exam reveals normal bowel sounds. Non-tender and non- distended. No evidence of peritonitis. EXTREMITITES: No clubbing, cyanosis, or edema. Objective - Vital Signs Vital signs: Vital Signs Temp 102.9 F H 02/23/17 07:00 Pulse 106 H 02/23/17 07:00 Resp 18 02/23/17 07:00 BP 122/64 02/23/17 07:00 Pulse Ox 94 L 02/23/17 07:00 Intake & Output 02/22/17 02/23/17 02/23/17 18:59 06:59 18:59 Intake Total 1040 Output Total 150 Balance 890 Weight 86.5 kg Intake: Tube Feeding 1040 Output: Urine 150 Other: Voiding Method Urinal Urinal # Voids 4 # Bowel Movements 1 - Labs CBC & Chem 7: 02/22/17 07:02 02/23/17 06:52 Labs: Abnormal Lab Results - Last 24 Hours (Table) 02/22/17 02/22/17 02/23/17 Range/Units 12:01 17:18 00:34 PT (9.0-12.0) sec INR (<1.2) Sodium (137-145) mmol/L Creatinine (0.66-1.25) mg/dL Glucose (74-99) mg/dL POC Glucose (mg/dL) 111 H 124 H 130 H (75-99) mg/dL Calcium (8.4-10.2) mg/dL 02/23/17 02/23/17 02/23/17 Range/Units 06:21 06:52 09:02 PT 13.8 H (9.0-12.0) sec INR 1.4 H (<1.2) Sodium 128 L (137-145) mmol/L Creatinine 0.58 L (0.66-1.25) mg/dL Glucose 120 H (74-99) mg/dL POC Glucose (mg/dL) 126 H (75-99) mg/dL Calcium 7.8 L (8.4-10.2) mg/dL Microbiology - Last 24 Hours (Table) 02/17/17 07:50 Blood Culture - Final Blood No Growth after 144 hours 02/17/17 14:53 Blood Culture - Preliminary Blood No Growth after 120 hours 02/17/17 14:36 Blood Culture - Preliminary Blood No Growth after 120 hours 02/21/17 12:37 Blood Culture - Preliminary Blood No Growth after 24 hours Assessment and Plan Plan: Assessment: #1. Hyponatremia. It appears patient was slightly hypovolemic initially as he wasn't receiving his tube feeds and was also a little hypotensive. Now appears euvolemic. Most recent sodium level is 128 as of this morning. 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 High urine sodium, high urine osmolality and low uric acid also suggestive of SIADH. #2. History of dysphagia status post PEG tube placement maintained on tube feeds. #3. Pneumonia maintained on antibiotics. Infectious disease following. #4. Hypokalemia related to his nutritional status and diuretics. Magnesium a little on the lower side. Improved. #5. CLL, oncology following. Plan: Discontinued normal saline. Maintain tube feeds. I will increase Lasix to 20 mg twice daily. Add salt tabs 1 g twice daily. Further decreased free water to 30 mL every 6 hours. Repeat electrolytes in the morning. 2 g IV Magnesium today.
[2017-02-23] MEDS: IPRATROPIUM-ALBUTEROL 3 ML NEB INHALATION PRN (11:20)
[2017-02-23 12:17] LABS: Glucose,Whole Blood 132 mg/dL (75-99)
[2017-02-23] MEDS: SODIUM CHLORIDE TAB 1 GM TAB PO SCH ×2 (12:48→21:34)
[2017-02-23] MEDS: MULTIVITAMINS, THERA 1 EACH TAB PEG/G-TUBE SCH (12:48)
[2017-02-23 14:19] LABS: Anisocytosis Slight; Aty Lym Flag Marked; CH 27.5; CHCM 30.4; HCT 28.2 % (39.0-53.0); HDW 3.05; HGB 8.7 gm/dL (13.0-17.5); Hypochromasia Marked; MCH 28.1 pg (25.0-35.0); MCHC 30.9 g/dL (31.0-37.0); Mean Platelet Volume 8.4; RDW 19.9 % (11.5-15.5); WBC 3.8 k/uL (3.8-10.6); WBC (Perox) 3.82
[2017-02-23 14:36] LABS: Add Differential Manual Differential
--- NOTE | 2017-02-23 14:37 | P.PN ---
Subjective . Personal being dictated for Dr. Mason. Interval history: This is a 76-year-old male who we saw yesterday in consultation. 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 02/20/2017 sodium 131, normal saline discontinued. Continues on tube feeds with minimal to no residuals. Denies abdominal pain, no nausea, no vomiting. Breathing improving .Remains febrile, T-max in 100. Sputum currently reporting presumptive staph. Maintained on vancomycin and Merrem as per infectious disease. IVIG infusions ordered, IgG in the 200s. Denies chest pain, palpitations or increasing shortness of breath. 02/23/2017. Sputum culture positive for MRSA, continue on antibiotics as per ID. Evaluated by speech therapy today with recommendations noted. Afebrile, T- max 102.9. Oncology family meeting in a.m. no nausea or emesis this morning.. Sodium 128. Objective - Vital Signs Vital signs: Vital Signs Temp 97.8 F 02/23/17 12:00 Pulse 82 02/23/17 11:31 Resp 18 02/23/17 07:00 BP 122/64 02/23/17 07:00 Pulse Ox 94 L 02/23/17 07:00 Intake & Output 02/22/17 02/23/17 02/23/17 18:59 06:59 18:59 Intake Total 1040 520 Output Total 150 150 Balance 890 370 Weight 86.5 kg 86.5 kg Intake: Tube Feeding 1040 520 Output: Urine 150 150 Other: Voiding Method Urinal Urinal Urinal # Voids 4 1 # Bowel Movements 1 3 - Exam PHYSICAL EXAM: VITAL SIGNS: [As above] GENERAL: Sitting up in bed, no acute distress HEENT: Conjunctivae normal. eyes normal. Thrush much improved NECK: No JVD. No thyroid enlargement. CARDIOVASCULAR: S1, S2 muffled. No murmurs, rubs or gallops RESPIRATION: Bilateral bases diminished, no wheezing, no crackles, occ. rhonchi ABDOMEN: Soft, nontender . No guarding. no masses palpable. PEG tube present Bowel sounds heard. LEGS: No edema. no swelling PSYCHIATRY: Alert and oriented -3, mood and affect normal. 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 Diffuse weakness. No new focal deficits. No sensory deficit. Skin: no ulcer no rash Microbiology 02/17/17 07:50 Blood Blood Culture - Final No Growth after 144 hours 02/17/17 14:53 Blood Blood Culture - Preliminary No Growth after 120 hours 02/17/17 14:36 Blood Blood Culture - Preliminary No Growth after 120 hours 02/21/17 12:37 Blood Blood Culture - Preliminary No Growth after 24 hours 02/17/17 22:35 Sputum Gram Stain - Final 02/17/17 22:35 Sputum Sputum Culture - Final Methicillin resist S. aureus 02/17/17 07:50 Urine,Voided Urine Culture - Final 02/17/17 12:02 Sputum Gram Stain - Final 02/17/17 12:02 Sputum Sputum Culture - Final - Labs CBC & Chem 7: 02/23/17 13:25 02/23/17 06:52 Labs: Abnormal Lab Results - Last 24 Hours (Table) 02/22/17 02/23/17 02/23/17 Range/Units 17:18 00:34 06:21 PT (9.0-12.0) sec INR (<1.2) Sodium (137-145) mmol/L Creatinine (0.66-1.25) mg/dL Glucose (74-99) mg/dL POC Glucose (mg/dL) 124 H 130 H 126 H (75-99) mg/dL Calcium (8.4-10.2) mg/dL 02/23/17 02/23/17 02/23/17 Range/Units 06:52 09:02 12:14 PT 13.8 H (9.0-12.0) sec INR 1.4 H (<1.2) Sodium 128 L (137-145) mmol/L Creatinine 0.58 L (0.66-1.25) mg/dL Glucose 120 H (74-99) mg/dL POC Glucose (mg/dL) 132 H (75-99) mg/dL Calcium 7.8 L (8.4-10.2) mg/dL Microbiology - Last 24 Hours (Table) 02/17/17 07:50 Blood Culture - Final Blood No Growth after 144 hours 02/17/17 14:53 Blood Culture - Preliminary Blood No Growth after 120 hours 02/17/17 14:36 Blood Culture - Preliminary Blood No Growth after 120 hours 02/21/17 12:37 Blood Culture - Preliminary Blood No Growth after 24 hours Assessment and Plan Plan: Syncope, likely secondary to dehydration with hyponatremia/SIADH, fevers. Possible left lower lobe pneumonia versus atelectasis, presumptive staph currently in sputum; recent cultures of MRSA and Enterobacter Kulwicki. Sputum culture now positive for MRSA. Fever, related to pneumonia, possibly to CLL COPD, inactive CLL Paroxysmal atrial fibrillation Hypothyroidism Fletcher's jiarb-piab-wdeid Dysphagia secondary to lymphoma, status post PEG tube placement maintained on tube feeds Recent varicella zoster infection. Plan: Continue on current medication regime ,monitoring and symptomatic treatment. Lasix increased, sodium tabs added and free water decreased as per nephrology. Magnesium being supplemented. Antibiotics as per infectious disease. maintain nebulized bronchodilators. Oncology family meeting in a.m. Discharge planning in progress for tomorrow. The impression and plan of care has been dictated as directed as a scribe. : I performed a H&P examination of this patient and discussed the same with the dictator. I agree with the dictator's note. Any additional findings/opinions/ etc. will be noted.
[2017-02-23 14:38] LABS: Nucleated Red Blood Cells 0 /100 WBC (0-0); Polychromasia Present; Total Cells Counted 100
--- NOTE | 2017-02-23 15:29 | P.PN ---
Subjective 89-year-old male patient is very well-known to me. Unfortunately patient had a prolonged and complicated course of CLL. Note that the patient was in a good state of health until approximately 3 months ago when he started having infectious complications. 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 Note that he was transferred to [facility] and he had an ENT evaluation done at that time that showed lymphomatous infiltration of his throat which contributed to his difficulty in swallowing. As such the patient has a PEG tube for enteral feeding and nutritional support and his periodically being evaluated by the swallow pathologist for his ability to eat orally. Currently is on enteral feeding via a PEG tube. Is also known to have COPD, hypothyroidism, atrial fibrillation as comorbid conditions This patient was recently in the hospital. He was treated and he was discharged to go home where he was being taken care of by his . The patient came into the hospital because of syncopal episodes probably related to dehydration and orthostasis. At the same time he was hyponatremic and the possibility of left lower lobe pneumonia was also entertained 9 that there was a new consolidation of the left lung base. His sputum showed MRSA and make and the patient was started on vancomycin. He is also meropenem. He is currently receiving antibiotics without any major complications or side effects. He still has a congested cough unable to bring up much of sputum. He does have a decent coughing reflex. No respiratory distress. No hemoptysis no pleurisy. No chest pain. No altered mentation. On and off is still having fever the most recent of which was yesterday for which the patient was given IV Tylenol.. He is being followed up by infectious disease. He is also on long-term anticoagulation with warfarin regarding his atrial fibrillation. INR is subtherapeutic at this point. Objective - Vital Signs Vital signs: Vital Signs Temp 97.8 F 02/23/17 12:00 Pulse 82 02/23/17 11:31 Resp 18 02/23/17 07:00 BP 122/64 02/23/17 07:00 Pulse Ox 94 L 02/23/17 07:00 Intake & Output 02/22/17 02/23/17 02/23/17 18:59 06:59 18:59 Intake Total 1040 520 Output Total 150 150 Balance 890 370 Weight 86.5 kg 86.5 kg Intake: Tube Feeding 1040 520 Output: Urine 150 150 Other: Voiding Method Urinal Urinal Urinal # Voids 4 1 # Bowel Movements 1 3 - Exam Head exam was generally normal. There was no scleral icterus or corneal arcus. Mucous membranes were moist. The patient has an obvious facial asymmetry with a left facial droop related to his Fletcher's palsy.Neck was supple and without jugular venous distension, thyromegaly, or carotid bruits. Carotids were easily palpable bilaterally. There was no adenopathy. Lung sounds are diminished in lung bases bilaterally. Few scattered expiratory wheezes. Crackles in lung bases more so on the left.Cardiac exam revealed the PMI to be normally situated and sized. The rhythm was regular and no extrasystoles were noted during several minutes of auscultation. The first and second heart sounds were normal and physiologic splitting of the second heart sound was noted. There were no murmurs, rubs, clicks, or gallops.Abdominal exam revealed normal bowel sounds. The abdomen was soft, non-tender, and without masses, organomegaly, or appreciable enlargement of the abdominal aorta. The PEG tube site is dry clean and intact. No direct tenderness no rebound tenderness. No guarding. Bowel sounds are hypoactive at the present.Examination of the extremities revealed easily palpable radial, femoral and pedal pulses. There was no cyanosis, clubbing or edema. Neurologically the patient has impaired hearing and the patient has an obvious facial palsy involving the left face. Motor function the left upper and left lower oximetry is within normal limits. In fact motor function is symmetric in all 4 extremities. Coughing reflexes present. Swallow reflex is poor. Skeletal exam is within normal limits without any deformities or fractures. Skin exam is within normal without any active rash or skin eruption. - Labs CBC & Chem 7: 02/23/17 13:25 02/23/17 06:52 Labs: Abnormal Lab Results - Last 24 Hours (Table) 02/22/17 02/23/17 02/23/17 Range/Units 17:18 00:34 06:21 RBC (4.30-5.90) m/uL Hgb (13.0-17.5) gm/dL Hct (39.0-53.0) % MCHC (31.0-37.0) g/dL RDW (11.5-15.5) % Plt Count (150-450) k/uL Neutrophils # (Manual) (1.3-7.7) k/uL PT (9.0-12.0) sec INR (<1.2) Sodium (137-145) mmol/L Creatinine (0.66-1.25) mg/dL Glucose (74-99) mg/dL POC Glucose (mg/dL) 124 H 130 H 126 H (75-99) mg/dL Calcium (8.4-10.2) mg/dL 02/23/17 02/23/17 02/23/17 Range/Units 06:52 09:02 12:14 RBC (4.30-5.90) m/uL Hgb (13.0-17.5) gm/dL Hct (39.0-53.0) % MCHC (31.0-37.0) g/dL RDW (11.5-15.5) % Plt Count (150-450) k/uL Neutrophils # (Manual) (1.3-7.7) k/uL PT 13.8 H (9.0-12.0) sec INR 1.4 H (<1.2) Sodium 128 L (137-145) mmol/L Creatinine 0.58 L (0.66-1.25) mg/dL Glucose 120 H (74-99) mg/dL POC Glucose (mg/dL) 132 H (75-99) mg/dL Calcium 7.8 L (8.4-10.2) mg/dL 02/23/17 Range/Units 13:25 RBC 3.10 L (4.30-5.90) m/uL Hgb 8.7 L (13.0-17.5) gm/dL Hct 28.2 L (39.0-53.0) % MCHC 30.9 L (31.0-37.0) g/dL RDW 19.9 H (11.5-15.5) % Plt Count 88 L (150-450) k/uL Neutrophils # (Manual) 1.06 L (1.3-7.7) k/uL PT (9.0-12.0) sec INR (<1.2) Sodium (137-145) mmol/L Creatinine (0.66-1.25) mg/dL Glucose (74-99) mg/dL POC Glucose (mg/dL) (75-99) mg/dL Calcium (8.4-10.2) mg/dL Microbiology - Last 24 Hours (Table) 02/21/17 12:37 Blood Culture - Preliminary Blood No Growth after 48 hours 02/17/17 07:50 Blood Culture - Final Blood No Growth after 144 hours 02/17/17 14:53 Blood Culture - Preliminary Blood No Growth after 120 hours 02/17/17 14:36 Blood Culture - Preliminary Blood No Growth after 120 hours Assessment and Plan Plan: Assessment 1 suspected left lower lobe pneumonia. The patient has a sputum that's positive for MRSA. This could be potentially a colonizer versus a true infection in the left lung base. A healthcare. Pneumonia needs to be considered knowing that the patient has been in and out of the hospital multiple occasions. As such and would the ongoing current event the patient is being treated with vancomycin. Dose is being adjusted based on his levels. Pharmacy is on the case. 2 episodic fever. Rule out infectious. 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 Continue current antibiotic coverage. Aspiration precautions. Swallow evaluation. Continue enteral feeding for nutritional support. Oncology is on the case regarding further advice for his CLL. May consider giving him IVIG especially with his underlying hypogammaglobulinemia and ongoing recurrent septic complications.
[2017-02-23 17:58] LABS: Glucose,Whole Blood 118 mg/dL (75-99)
[2017-02-23] MEDS ORDERED: WARFARIN 10 MG TAB PO ONE (18:00)
[2017-02-23] MEDS: VANCOMYCIN 1,750 MG in SODIUM CHLORIDE 0.9% 250 ML IVPB SCH (19:29)
--- NOTE | 2017-02-23 21:24 | P.PN ---
Subjective Principal diagnosis: sepsis 76-year-old male with a known history of chronic lymphocytic leukemia with not been any therapy up to this December. However that point in time he presented to Hospital feeling poorly. Had severe sore throat difficulty with chewing and swallowing. He was not feeling well. He was hospitalized at that time and treated with antibiotic therapy with concerns to pneumonia and high- grade fever. He also developed an extensive skin rash. Testing at our facility did confirm varicella-zoster which he had treatment for from beginning of his stay in December. Because of his ongoing difficulties with swallowing he was transferred to his oncologist at [facility]. 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 And he was initiated to Rituxan therapy. 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 At this time the patient is still somewhat miserable. He is unaware of the events that occurred that led him to the hospital. He apparently was unconscious when the found him and she was concerned that there was seizure. He constantly was brought to Hospital by EMS. At this time he is sitting up right somewhat comfortable. He is oriented and able to converse although he is quite hard of hearing He was having significant pains earlier and is now more comfortable. His significant abdominal discomforts have improved. He does cough and has had fever does not relate to significant sputum production or hemoptysis. temperature of 100.1 and overall is improved but stll weak. is very anxious to continue chemotherapy. Walked with PT today Objective - Vital Signs Vital signs: Vital Signs Temp 99.5 F 02/23/17 15:00 Pulse 96 02/23/17 16:00 Resp 18 02/23/17 16:00 BP 107/61 02/23/17 15:00 Pulse Ox 93 L 02/23/17 15:00 Intake & Output 02/23/17 02/23/17 02/24/17 06:59 18:59 06:59 Intake Total 1040 780 Output Total 150 300 Balance 890 480 Weight 86.5 kg 86.5 kg Intake: Tube Feeding 1040 780 Output: Urine 150 300 Other: Voiding Method Urinal Urinal # Voids 4 1 # Bowel Movements 3 - Exam 76-year-old male who appears older than his stated age. He is weak and ill in appearance relates he still has significant pain when he tries to swallow it feels like it's getting stuck just below his Rashad's apple. HEENT: Anicteric conjunctiva are pink and moist nasal mucosa grossly intact without significant lesions, there is no thrush. Dry crusting from the extensive herpetic lesion to his lips. Not actively bleeding. Is noted he had extensive thrush that is now resolved just has some dry oral cavity Neck: The neck is supple without significant lymphadenopathy or thyromegaly. Lungs: Good bilateral air entry there is evidence of crackles at the left base otherwise the chest is quite clear Heart: Regular rate and rhythm with an audible S1-S2, no S3 no S4. There is no significant murmur click or rub, PMI was nondisplaced. Abdomen: Positive bowel sounds soft and nontender without palpable masses or organomegaly. There was no guarding or rebound. PEG tube site is intact Extremities: The upper extremities have excellent pulses they are symmetric, no significant petechiae or telangiectasia. No splinter hemorrhages were noted. The lower extremities are free from significant edema. The peripheral pulses were 2+ and symmetric. Neuro: Awake alert oriented to person and place. Does not exhibit acute gross focal sensory motor deficits at this time - Labs CBC & Chem 7: 02/23/17 13:25 02/23/17 06:52 Labs: Abnormal Lab Results - Last 24 Hours (Table) 02/23/17 02/23/17 02/23/17 Range/Units 00:34 06:21 06:52 RBC (4.30-5.90) m/uL Hgb (13.0-17.5) gm/dL Hct (39.0-53.0) % MCHC (31.0-37.0) g/dL RDW (11.5-15.5) % Plt Count (150-450) k/uL Neutrophils # (Manual) (1.3-7.7) k/uL PT (9.0-12.0) sec INR (<1.2) Sodium 128 L (137-145) mmol/L Creatinine 0.58 L (0.66-1.25) mg/dL Glucose 120 H (74-99) mg/dL POC Glucose (mg/dL) 130 H 126 H (75-99) mg/dL Calcium 7.8 L (8.4-10.2) mg/dL 02/23/17 02/23/17 02/23/17 Range/Units 09:02 12:14 13:25 RBC 3.10 L (4.30-5.90) m/uL Hgb 8.7 L (13.0-17.5) gm/dL Hct 28.2 L (39.0-53.0) % MCHC 30.9 L (31.0-37.0) g/dL RDW 19.9 H (11.5-15.5) % Plt Count 88 L (150-450) k/uL Neutrophils # (Manual) 1.06 L (1.3-7.7) k/uL PT 13.8 H (9.0-12.0) sec INR 1.4 H (<1.2) Sodium (137-145) mmol/L Creatinine (0.66-1.25) mg/dL Glucose (74-99) mg/dL POC Glucose (mg/dL) 132 H (75-99) mg/dL Calcium (8.4-10.2) mg/dL 02/23/17 Range/Units 17:56 RBC (4.30-5.90) m/uL Hgb (13.0-17.5) gm/dL Hct (39.0-53.0) % MCHC (31.0-37.0) g/dL RDW (11.5-15.5) % Plt Count (150-450) k/uL Neutrophils # (Manual) (1.3-7.7) k/uL PT (9.0-12.0) sec INR (<1.2) Sodium (137-145) mmol/L Creatinine (0.66-1.25) mg/dL Glucose (74-99) mg/dL POC Glucose (mg/dL) 118 H (75-99) mg/dL Calcium (8.4-10.2) mg/dL Microbiology - Last 24 Hours (Table) 02/17/17 14:53 Blood Culture - Final Blood No Growth after 144 hours 02/17/17 14:36 Blood Culture - Final Blood No Growth after 144 hours 02/21/17 12:37 Blood Culture - Preliminary Blood No Growth after 48 hours 02/17/17 07:50 Blood Culture - Final Blood No Growth after 144 hours Laboratory Results WBC 3.8 k/uL (3.8-10.6) 02/23/17 13:25 RBC 3.10 m/uL (4.30-5.90) L 02/23/17 13:25 Hgb 8.7 gm/dL (13.0-17.5) L 02/23/17 13:25 Hct 28.2 % (39.0-53.0) L 02/23/17 13:25 MCV 91.0 fL (80.0-100.0) 02/23/17 13:25 MCH 28.1 pg (25.0-35.0) 02/23/17 13:25 MCHC 30.9 g/dL (31.0-37.0) L 02/23/17 13:25 RDW 19.9 % (11.5-15.5) H 02/23/17 13:25 Plt Count 88 k/uL (150-450) L 02/23/17 13:25 Neutrophils % (Manual) 28 % 02/23/17 13:25 Band Neutrophils % 1 % 02/17/17 07:50 Lymphocytes % (Manual) 66 % 02/23/17 13:25 Monocytes % (Manual) 6 % 02/23/17 13:25 Eosinophils % (Manual) 2 % 02/19/17 07:36 Neutrophils # (Manual) 1.06 k/uL (1.3-7.7) L 02/23/17 13:25 Lymphocytes # (Manual) 2.51 k/uL (1.0-4.8) 02/23/17 13:25 Monocytes # (Manual) 0.23 k/uL (0-1.0) 02/23/17 13:25 Eosinophils # (Manual) 0.12 k/uL (0-0.7) 02/19/17 07:36 Nucleated RBCs 0 /100 WBC (0-0) 02/23/17 13:25 Manual Slide Review Performed 02/19/17 07:36 Polychromasia Present 02/23/17 13:25 Hypochromasia Marked 02/23/17 13:25 Poikilocytosis (manual Present 02/19/17 07:36 Anisocytosis Slight 02/23/17 13:25 Macrocytosis Slight 02/19/17 07:36 PT 13.8 sec (9.0-12.0) H 02/23/17 09:02 INR 1.4 (<1.2) H 02/23/17 09:02 APTT 27.6 sec (22.0-30.0) 02/17/17 07:50 Sodium 128 mmol/L (137-145) L 02/23/17 06:52 Potassium 4.5 mmol/L (3.5-5.1) 02/23/17 06:52 Chloride 98 mmol/L (98-107) 02/23/17 06:52 Carbon Dioxide 26 mmol/L (22-30) 02/23/17 06:52 Anion Gap 4 mmol/L 02/23/17 06:52 BUN 18 mg/dL (9-20) 02/23/17 06:52 Creatinine 0.58 mg/dL (0.66-1.25) L 02/23/17 06:52 Est GFR (MDRD) Af Amer >60 (>60 ml/min/1.73 sqM) 02/23/17 06:52 Est GFR (MDRD) Non-Af >60 (>60 ml/min/1.73 sqM) 02/23/17 06:52 Glucose 120 mg/dL (74-99) H 02/23/17 06:52 POC Glucose (mg/dL) 118 mg/dL (75-99) H 02/23/17 17:56 POC Glu Heating Element Winder ID Gita Evans 02/23/17 17:56 Osmolality 274 mosm/kg (280-301) L 02/18/17 07:26 Plasma Lactic Acid Jason 1.2 mmol/L (0.7-2.0) 02/17/17 07:50 Uric Acid 2.0 mg/dL (3.5-8.5) L 02/19/17 07:36 Calcium 7.8 mg/dL (8.4-10.2) L 02/23/17 06:52 Phosphorus 2.9 mg/dL (2.5-4.5) 02/17/17 07:50 Magnesium 1.6 mg/dL (1.6-2.3) 02/23/17 06:52 Total Bilirubin 0.5 mg/dL (0.2-1.3) 02/18/17 07:26 AST 29 U/L (17-59) 02/18/17 07:26 ALT 43 U/L (21-72) 02/18/17 07:26 Alkaline Phosphatase 52 U/L (38-126) 02/18/17 07:26 Total Creatine Kinase <20 U/L (55-170) L 02/17/17 07:50 CK-MB (CK-2) 0.3 ng/mL (0.0-2.4) 02/17/17 07:50 CK-MB (CK-2) Rel Index 02/17/17 07:50 Troponin I <0.012 ng/mL (0.000-0.034) 02/18/17 12:52 Total Protein 4.1 g/dL (6.3-8.2) L 02/18/17 07:26 Albumin 2.4 g/dL (3.5-5.0) L 02/18/17 07:26 TSH 5.540 mIU/L (0.465-4.680) H 02/19/17 07:36 Free T4 1.20 ng/dL (0.78-2.19) 02/19/17 07:36 Cortisol 18 ug/dL 02/19/17 07:36 Urine Color Yellow 02/17/17 07:50 Urine Appearance Clear (Clear) 02/17/17 07:50 Urine pH 8.0 (5.0-8.0) 02/17/17 07:50 Ur Specific [place] 1.010 (1.001-1.035) 02/17/17 07:50 Urine Protein Trace (Negative) H 02/17/17 07:50 Urine Glucose (UA) Negative (Negative) 02/17/17 07:50 Urine Ketones Negative (Negative) 02/17/17 07:50 Urine Blood Negative (Negative) 02/17/17 07:50 Urine Nitrite Negative (Negative) 02/17/17 07:50 Urine Bilirubin Negative (Negative) 02/17/17 07:50 Urine Urobilinogen <2.0 mg/dL (<2.0) 02/17/17 07:50 Ur Leukocyte Esterase Negative (Negative) 02/17/17 07:50 Urine Osmolality 793 mosm/kg (50-1400) 02/18/17 06:48 Ur Random Creatinine 63.8 mg/dL 02/17/17 07:50 Ur Random Sodium 141 mmol/L (30-90) H 02/18/17 06:48 Ur Random Potassium 43.7 mmol/L 02/17/17 07:50 Ur Random Urea Nitrogn 433.0 mg/dL 02/17/17 07:50 Ur Random Calcium 6.6 mg/dL 02/17/17 07:50 Vancomycin Trough 14.2 ug/mL 02/23/17 08:44 IgG 226.0 mg/dL (700.0-1600.0) L 02/20/17 07:17 IgA <25.5 mg/dL (60.0-350.0) L 02/20/17 07:17 IgM <16.9 mg/dL (40.0-280.0) L 02/20/17 07:17 Microbiology 02/17/17 14:53 Blood Blood Culture - Final No Growth after 144 hours 02/17/17 14:36 Blood Blood Culture - Final No Growth after 144 hours 02/21/17 12:37 Blood Blood Culture - Preliminary No Growth after 48 hours 02/17/17 07:50 Blood Blood Culture - Final No Growth after 144 hours 02/17/17 22:35 Sputum Gram Stain - Final 02/17/17 22:35 Sputum Sputum Culture - Final Methicillin resist S. aureus 02/17/17 07:50 Urine,Voided Urine Culture - Final 02/17/17 12:02 Sputum Gram Stain - Final 02/17/17 12:02 Sputum Sputum Culture - Final Assessment and Plan (1) Febrile illness, acute Status: Acute (2) Left lower lobe pneumonia Narrative/Plan: 76-year-old male noted infectious disease service for his 2 recent admissions. During the summer he had significant difficulties with the onset difficulty with swallowing and fevers and varicella-zoster. At that time there was concerns that his malignancy had changed. 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 He received Rituxan therapy. Was also noted to have hypogammaglobulinemia and he received IgG therapy. If not clear when his last IgG therapy was given. We have a more recent IgG level that appears to be low at just over 400. Oncology is following and will help determine the need for immunoglobulin replacement therapy at this time. Recent cultures are reviewed and there was evidence of Enterobacter and MRSA in his sputum. sputum revealed only MRSA and will be able to discontinue the Merrem overall improved but low grade temp today. Fortunately blood cultures are negative so far. His discomforts are improving. Nutrition is being given through his tube. His recent varicella-zoster is completely resolved. He is being followed by oncology and until he is well cannot receive further chemotherapy On the he did receive his dose of intravenous immunoglobulin. He hopefully will continue to show ongoing improvement. The relates that he is due for his next course of chemotherapy later this week. Hopefully is infection and performance status are high enough for him to proceed. Status: Acute (3) Small B-cell lymphoma Status: Acute
[2017-02-24 00:42] LABS: Glucose,Whole Blood 137 mg/dL (75-99)
[2017-02-24] MEDS: ACETAMINOPHEN TAB 325 MG TAB PO PRN ×2 (03:24→15:55)
[2017-02-24] MEDS: LEVOTHYROXINE 125 MCG TAB PEG/G-TUBE SCH (05:44)
[2017-02-24 06:22] LABS: Glucose,Whole Blood 130 mg/dL (75-99)
[2017-02-24] MEDS: ENOXAPARIN 40 MG/0.4 ML SYRINGE SQ SCH (08:18)
[2017-02-24] MEDS: NYSTATIN 100,000 UNIT/ML SUSP 500,000 UNIT/5 ML CUP PO SCH ×4 (08:18→22:53)
[2017-02-24] MEDS: DILTIAZEM ORAL 30 MG TAB PO SCH ×4 (08:19→22:52)
[2017-02-24] MEDS: FUROSEMIDE 20 MG TAB PO SCH ×2 (08:19→22:35)
[2017-02-24] MEDS: SODIUM CHLORIDE TAB 1 GM TAB PO SCH ×2 (08:21→22:37)
[2017-02-24 08:24] LABS: Anisocytosis Slight; Aty Lym Flag Marked; CH 26.8; CHCM 29.9; HCT 27.6 % (39.0-53.0); HDW 3.13; HGB 8.5 gm/dL (13.0-17.5); Hypochromasia Marked; MCH 27.8 pg (25.0-35.0); MCHC 30.9 g/dL (31.0-37.0); MCV 90.2 fL (80.0-100.0); Mean Platelet Volume 8.7; RBC 3.06 m/uL (4.30-5.90); RDW 19.5 % (11.5-15.5); WBC 3.5 k/uL (3.8-10.6); WBC (Perox) 3.61
[2017-02-24] MEDS: SYMBICORT 160-4.5 MCG INHALER INHALATION SCH ×2 (08:31→21:16)
[2017-02-24] MEDS: VANCOMYCIN 1,750 MG in SODIUM CHLORIDE 0.9% 250 ML IVPB SCH ×2 (08:35→22:36)
[2017-02-24 08:54] LABS: INR 1.4 (<1.2); Prothrombin Time 13.7 sec (9.0-12.0)
[2017-02-24 09:53] LABS: Add Differential Manual Differential
--- NOTE | 2017-02-24 10:40 | P.PN ---
Subjective Patient is seen in follow-up for hyponatremia. Sodium level is 128 as of yesterday. He is currently maintained on tube feeds. Patient is not able to tolerate oral intake due to tumor infiltration and dysphagia. Hemodynamically he is stable. Admits to good urine output. He is currently being treated with broad-spectrum antibiotics for left lower lobe pneumonia. Sputum culture is positive for MRSA. He is noted to be febrile which has been attributed to CLL. No active complaints at this time. Vital signs are stable. General: The patient appeared well nourished and normally developed. HEENT: Head exam is unremarkable. Neck is without jugular venous distension. LUNGS: Lungs are clear to auscultation and percussion. Breath sounds decreased. HEART: Rate and Rhythm are regular. First and second heart sounds normal. No murmurs, rubs or gallops. ABDOMEN: Abdominal exam reveals normal bowel sounds. Non-tender and non- distended. No evidence of peritonitis. EXTREMITITES: No clubbing, cyanosis, or edema. Objective - Vital Signs Vital signs: Vital Signs Temp 98.4 F 02/24/17 07:00 Pulse 90 02/24/17 07:00 Resp 18 02/24/17 07:00 BP 103/53 02/24/17 07:00 Pulse Ox 94 L 02/24/17 07:00 Intake & Output 02/23/17 02/24/17 02/24/17 18:59 06:59 18:59 Intake Total 780 780 Output Total 300 180 Balance 480 600 Weight 86.5 kg 87.5 kg Intake: Tube Feeding 780 780 Output: Urine 300 180 Other: Voiding Method Urinal Urinal # Voids 1 # Bowel Movements 3 1 1 - Labs CBC & Chem 7: 02/24/17 07:45 02/23/17 06:52 Labs: Abnormal Lab Results - Last 24 Hours (Table) 02/23/17 02/23/17 02/23/17 Range/Units 12:14 13:25 17:56 WBC (3.8-10.6) k/uL RBC 3.10 L (4.30-5.90) m/uL Hgb 8.7 L (13.0-17.5) gm/dL Hct 28.2 L (39.0-53.0) % MCHC 30.9 L (31.0-37.0) g/dL RDW 19.9 H (11.5-15.5) % Plt Count 88 L (150-450) k/uL Neutrophils # (Manual) 1.06 L (1.3-7.7) k/uL PT (9.0-12.0) sec INR (<1.2) POC Glucose (mg/dL) 132 H 118 H (75-99) mg/dL 02/24/17 02/24/17 02/24/17 Range/Units 00:37 06:21 07:45 WBC (3.8-10.6) k/uL RBC (4.30-5.90) m/uL Hgb (13.0-17.5) gm/dL Hct (39.0-53.0) % MCHC (31.0-37.0) g/dL RDW (11.5-15.5) % Plt Count (150-450) k/uL Neutrophils # (Manual) (1.3-7.7) k/uL PT 13.7 H (9.0-12.0) sec INR 1.4 H (<1.2) POC Glucose (mg/dL) 137 H 130 H (75-99) mg/dL 02/24/17 Range/Units 07:45 WBC 3.5 L (3.8-10.6) k/uL RBC 3.06 L (4.30-5.90) m/uL Hgb 8.5 L (13.0-17.5) gm/dL Hct 27.6 L (39.0-53.0) % MCHC 30.9 L (31.0-37.0) g/dL RDW 19.5 H (11.5-15.5) % Plt Count 84 L (150-450) k/uL Neutrophils # (Manual) (1.3-7.7) k/uL PT (9.0-12.0) sec INR (<1.2) POC Glucose (mg/dL) (75-99) mg/dL Microbiology - Last 24 Hours (Table) 02/17/17 14:53 Blood Culture - Final Blood No Growth after 144 hours 02/17/17 14:36 Blood Culture - Final Blood No Growth after 144 hours 02/21/17 12:37 Blood Culture - Preliminary Blood No Growth after 48 hours 02/17/17 07:50 Blood Culture - Final Blood No Growth after 144 hours Assessment and Plan Plan: Assessment: #1. Hyponatremia. It appears patient was slightly hypovolemic initially as he wasn't receiving his tube feeds and was also a little hypotensive. Now appears euvolemic. Most recent sodium level is 128 as of yesterday morning. 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 High urine sodium, high urine osmolality and low uric acid also suggestive of SIADH. #2. History of dysphagia status post PEG tube placement maintained on tube feeds. #3. Pneumonia maintained on antibiotics. Infectious disease following. #4. Hypokalemia related to his nutritional status and diuretics. Magnesium a little on the lower side. Improved. #5. CLL, oncology following. Plan: Discontinued normal saline. Maintain tube feeds. Continue Lasix to 20 mg twice daily. Continue salt tabs 1 g twice daily. Further decreased free water to 30 mL every 6 hours. Repeat electrolytes in the morning. Morning labs from today pending at this time.
[2017-02-24 10:44] LABS: Anion Gap 3 mmol/L; Blood Urea Nitrogen 19 mg/dL (9-20); Calcium 7.6 mg/dL (8.4-10.2); Carbon Dioxide 31 mmol/L (22-30); Chloride 97 mmol/L (98-107); Glucose 111 mg/dL (74-99); Non-African American GFR(MDRD) >60 (>60 ml/min/1.73 sqM); Potassium 3.9 mmol/L (3.5-5.1); Sodium 131 mmol/L (137-145)
[2017-02-24 10:57] LABS: Nucleated Red Blood Cells 0 /100 WBC (0-0); Total Cells Counted 100
[2017-02-24 10:59] LABS: Manual Review Performed; Ovalocytes Present
[2017-02-24 12:10] LABS: Glucose,Whole Blood 111 mg/dL (75-99)
[2017-02-24] MEDS: MULTIVITAMINS, THERA 1 EACH TAB PEG/G-TUBE SCH (12:38)
--- NOTE | 2017-02-24 14:25 | P.PN ---
Subjective . Personal being dictated for Dr. Mason. Interval history: This is a 76-year-old male who we saw yesterday in consultation. 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 02/20/2017 sodium 131, normal saline discontinued. Continues on tube feeds with minimal to no residuals. Denies abdominal pain, no nausea, no vomiting. Breathing improving .Remains febrile, T-max in 100. Sputum currently reporting presumptive staph. Maintained on vancomycin and Merrem as per infectious disease. IVIG infusions ordered, IgG in the 200s. Denies chest pain, palpitations or increasing shortness of breath. 02/23/2017. Sputum culture positive for MRSA, continue on antibiotics as per ID. Evaluated by speech therapy today with recommendations noted. Afebrile, T- max 102.9. Oncology family meeting in a.m. no nausea or emesis this morning.. Sodium 128. 02/24/2017. Awaiting oncology family meeting this morning. T-max 101. Antibiotics continue as per infectious disease. Maintained on salt tabs, Sodium 131. Denies chest pain, palpitations or increasing shortness of breath. Objective - Vital Signs Vital signs: Vital Signs Temp 98.4 F 02/24/17 07:00 Pulse 90 02/24/17 07:00 Resp 18 02/24/17 07:00 BP 103/53 02/24/17 07:00 Pulse Ox 94 L 02/24/17 07:00 Intake & Output 02/23/17 02/24/17 02/24/17 18:59 06:59 18:59 Intake Total 780 780 Output Total 300 180 Balance 480 600 Weight 86.5 kg 87.5 kg Intake: Tube Feeding 780 780 Output: Urine 300 180 Other: Voiding Method Urinal Urinal # Voids 1 # Bowel Movements 3 1 1 - Exam PHYSICAL EXAM: VITAL SIGNS: [As above] GENERAL: Sitting up in bed, no acute distress HEENT: Conjunctivae normal. eyes normal. NECK: No JVD. No thyroid enlargement. CARDIOVASCULAR: S1, S2 muffled. No murmurs, rubs or gallops RESPIRATION: Bilateral bases diminished, no wheezing, no crackles, occ. rhonchi ABDOMEN: Soft, nontender . No guarding. no masses palpable. PEG tube present , positive Bowel sounds. LEGS: No edema. no swelling. PSYCHIATRY: Alert and oriented -3, mood and affect normal. 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 Diffuse weakness. No new focal deficits. No sensory deficit. Skin: no ulcer no rash. Microbiology 02/17/17 07:50 Blood Blood Culture - Final No Growth after 144 hours 02/17/17 14:53 Blood Blood Culture - Preliminary No Growth after 120 hours 02/17/17 14:36 Blood Blood Culture - Preliminary No Growth after 120 hours 02/21/17 12:37 Blood Blood Culture - Preliminary No Growth after 24 hours 02/17/17 22:35 Sputum Gram Stain - Final 02/17/17 22:35 Sputum Sputum Culture - Final Methicillin resist S. aureus 02/17/17 07:50 Urine,Voided Urine Culture - Final 02/17/17 12:02 Sputum Gram Stain - Final 02/17/17 12:02 Sputum Sputum Culture - Final - Labs CBC & Chem 7: 02/24/17 07:45 02/24/17 07:45 Labs: Abnormal Lab Results - Last 24 Hours (Table) 02/23/17 02/23/17 02/23/17 Range/Units 12:14 13:25 17:56 WBC (3.8-10.6) k/uL RBC 3.10 L (4.30-5.90) m/uL Hgb 8.7 L (13.0-17.5) gm/dL Hct 28.2 L (39.0-53.0) % MCHC 30.9 L (31.0-37.0) g/dL RDW 19.9 H (11.5-15.5) % Plt Count 88 L (150-450) k/uL Neutrophils # (Manual) 1.06 L (1.3-7.7) k/uL PT (9.0-12.0) sec INR (<1.2) Sodium (137-145) mmol/L Chloride (98-107) mmol/L Carbon Dioxide (22-30) mmol/L Creatinine (0.66-1.25) mg/dL Glucose (74-99) mg/dL POC Glucose (mg/dL) 132 H 118 H (75-99) mg/dL Calcium (8.4-10.2) mg/dL 02/24/17 02/24/17 02/24/17 Range/Units 00:37 06:21 07:45 WBC (3.8-10.6) k/uL RBC (4.30-5.90) m/uL Hgb (13.0-17.5) gm/dL Hct (39.0-53.0) % MCHC (31.0-37.0) g/dL RDW (11.5-15.5) % Plt Count (150-450) k/uL Neutrophils # (Manual) (1.3-7.7) k/uL PT 13.7 H (9.0-12.0) sec INR 1.4 H (<1.2) Sodium (137-145) mmol/L Chloride (98-107) mmol/L Carbon Dioxide (22-30) mmol/L Creatinine (0.66-1.25) mg/dL Glucose (74-99) mg/dL POC Glucose (mg/dL) 137 H 130 H (75-99) mg/dL Calcium (8.4-10.2) mg/dL 02/24/17 02/24/17 Range/Units 07:45 07:45 WBC 3.5 L (3.8-10.6) k/uL RBC 3.06 L (4.30-5.90) m/uL Hgb 8.5 L (13.0-17.5) gm/dL Hct 27.6 L (39.0-53.0) % MCHC 30.9 L (31.0-37.0) g/dL RDW 19.5 H (11.5-15.5) % Plt Count 84 L (150-450) k/uL Neutrophils # (Manual) (1.3-7.7) k/uL PT (9.0-12.0) sec INR (<1.2) Sodium 131 L (137-145) mmol/L Chloride 97 L (98-107) mmol/L Carbon Dioxide 31 H (22-30) mmol/L Creatinine 0.57 L (0.66-1.25) mg/dL Glucose 111 H (74-99) mg/dL POC Glucose (mg/dL) (75-99) mg/dL Calcium 7.6 L (8.4-10.2) mg/dL Microbiology - Last 24 Hours (Table) 02/17/17 14:53 Blood Culture - Final Blood No Growth after 144 hours 02/17/17 14:36 Blood Culture - Final Blood No Growth after 144 hours 02/21/17 12:37 Blood Culture - Preliminary Blood No Growth after 48 hours 02/17/17 07:50 Blood Culture - Final Blood No Growth after 144 hours Assessment and Plan Plan: Syncope, likely secondary to dehydration with hyponatremia/SIADH, fevers. Possible left lower lobe pneumonia versus atelectasis, presumptive staph currently in sputum; recent cultures of MRSA and Enterobacter [place]. Sputum culture positive for MRSA. 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 Maintain nebulized bronchodilators. Antibiotics as per infectious disease. Oncology family meeting pending. Further recommendations to follow. The impression and plan of care has been dictated as directed as a scribe. : I performed a H&P examination of this patient and discussed the same with the dictator. I agree with the dictator's note. Any additional findings/opinions/ etc. will be noted.
[2017-02-24] MEDS: valACYclovir 500 MG TAB PO SCH ×2 (15:56→22:37)
--- NOTE | 2017-02-24 17:07 | P.PN ---
<Kaley Pineda M - Last Filed: 02/24/17 16:48> Subjective Principal diagnosis: On 02/24/2017 the patient seen in follow-up for left lower lobe pneumonia, sputum positive for MRSA, Fletcher's palsy, difficulty swallowing, episodic fever secondary to CLL, and hyponatremia. Patient's spouse as it is at the bedside. Patient has been participating with the physical therapy, ambulating in hallway. Patient and the spouse both verbalize improvement in overall clinical status. Patient denies any specific restrictive complaints, maintains oxygen saturations in the 93-94% range on 4 L per nasal cannula. Speech therapist is on consult and will reevaluate the swallowing ability today. Patient will call will continue with tube feedings via the PEG tube, states she tolerates it well. Continues with intermittent febrile episodes, treated with acetaminophen. Lung sounds-a few scattered rales at the bases of the lungs. Nephrology increased Lasix to twice a day yesterday, improvement in the bilateral lower extremity edema has been noted. Today's serum sodium is 131 and it is improved from 128 on 02/23/2017. Objective - Vital Signs Vital signs: Vital Signs Temp 101.7 F H 02/24/17 16:39 Pulse 94 02/24/17 16:39 Resp 19 02/24/17 16:39 BP 108/50 02/24/17 16:39 Pulse Ox 93 L 02/24/17 16:39 Intake & Output 02/23/17 02/24/17 02/24/17 18:59 06:59 18:59 Intake Total 780 780 780 Output Total 300 180 200 Balance 480 600 580 Weight 86.5 kg 87.5 kg Intake: Tube Feeding 780 780 780 Output: Urine 300 180 200 Other: Voiding Method Urinal Urinal Urinal # Voids 1 # Bowel Movements 3 1 1 - Exam Head exam was generally normal. There was no scleral icterus or corneal arcus. Mucous membranes were moist. The patient has an obvious facial asymmetry with a left facial droop related to his Fletcher's palsy.Neck was supple and without jugular venous distension, thyromegaly, or carotid bruits. Carotids were easily palpable bilaterally. There was no adenopathy. Lung sounds are diminished in lung bases bilaterally. Few scattered expiratory wheezes. Crackles in lung bases more so on the left.Cardiac exam revealed the PMI to be normally situated and sized. The rhythm was regular and no extrasystoles were noted during several minutes of auscultation. The first and second heart sounds were normal and physiologic splitting of the second heart sound was noted. There were no murmurs, rubs, clicks, or gallops.Abdominal exam revealed normal bowel sounds. The abdomen was soft, non-tender, and without masses, organomegaly, or appreciable enlargement of the abdominal aorta. The PEG tube site is dry clean and intact. No direct tenderness no rebound tenderness. No guarding. Bowel sounds are hypoactive at the present.Examination of the extremities revealed easily palpable radial, femoral and pedal pulses. There was no cyanosis, clubbing or edema. Neurologically the patient has impaired hearing and the patient has an obvious facial palsy involving the left face. Motor function the left upper and left lower oximetry is within normal limits. In fact motor function is symmetric in all 4 extremities. Coughing reflexes present. Swallow reflex is poor. Skeletal exam is within normal limits without any deformities or fractures. Skin exam is within normal without any active rash or skin eruption. - Labs CBC & Chem 7: 02/24/17 07:45 02/24/17 07:45 Labs: Abnormal Lab Results - Last 24 Hours (Table) 02/23/17 02/24/17 02/24/17 Range/Units 17:56 00:37 06:21 WBC (3.8-10.6) k/uL RBC (4.30-5.90) m/uL Hgb (13.0-17.5) gm/dL Hct (39.0-53.0) % MCHC (31.0-37.0) g/dL RDW (11.5-15.5) % Plt Count (150-450) k/uL Neutrophils # (Manual) (1.3-7.7) k/uL PT (9.0-12.0) sec INR (<1.2) Sodium (137-145) mmol/L Chloride (98-107) mmol/L Carbon Dioxide (22-30) mmol/L Creatinine (0.66-1.25) mg/dL Glucose (74-99) mg/dL POC Glucose (mg/dL) 118 H 137 H 130 H (75-99) mg/dL Calcium (8.4-10.2) mg/dL 02/24/17 02/24/17 02/24/17 Range/Units 07:45 07:45 07:45 WBC 3.5 L (3.8-10.6) k/uL RBC 3.06 L (4.30-5.90) m/uL Hgb 8.5 L (13.0-17.5) gm/dL Hct 27.6 L (39.0-53.0) % MCHC 30.9 L (31.0-37.0) g/dL RDW 19.5 H (11.5-15.5) % Plt Count 84 L (150-450) k/uL Neutrophils # (Manual) 0.63 L (1.3-7.7) k/uL PT 13.7 H (9.0-12.0) sec INR 1.4 H (<1.2) Sodium 131 L (137-145) mmol/L Chloride 97 L (98-107) mmol/L Carbon Dioxide 31 H (22-30) mmol/L Creatinine 0.57 L (0.66-1.25) mg/dL Glucose 111 H (74-99) mg/dL POC Glucose (mg/dL) (75-99) mg/dL Calcium 7.6 L (8.4-10.2) mg/dL 02/24/17 Range/Units 12:05 WBC (3.8-10.6) k/uL RBC (4.30-5.90) m/uL Hgb (13.0-17.5) gm/dL Hct (39.0-53.0) % MCHC (31.0-37.0) g/dL RDW (11.5-15.5) % Plt Count (150-450) k/uL Neutrophils # (Manual) (1.3-7.7) k/uL PT (9.0-12.0) sec INR (<1.2) Sodium (137-145) mmol/L Chloride (98-107) mmol/L Carbon Dioxide (22-30) mmol/L Creatinine (0.66-1.25) mg/dL Glucose (74-99) mg/dL POC Glucose (mg/dL) 111 H (75-99) mg/dL Calcium (8.4-10.2) mg/dL Microbiology - Last 24 Hours (Table) 02/21/17 12:37 Blood Culture - Preliminary Blood No Growth after 72 hours 02/17/17 14:53 Blood Culture - Final Blood No Growth after 144 hours 02/17/17 14:36 Blood Culture - Final Blood No Growth after 144 hours Assessment and Plan Plan: Assessment 1 suspected left lower lobe pneumonia. The patient has a sputum that's positive for MRSA. This could be potentially a colonizer versus a true infection in the left lung base. A healthcare. Pneumonia needs to be considered knowing that the patient has been in and out of the hospital multiple occasions. As such and would the ongoing current event the patient is being treated with vancomycin. Dose is being adjusted based on his levels. Pharmacy is on the case. 2 episodic fever. Rule out infectious. 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 Continue current antibiotic coverage. Aspiration precautions. Swallow evaluation. Continue enteral feeding for nutritional support. Oncology is on the case regarding further advice for his CLL. May consider giving him IVIG especially with his underlying hypogammaglobulinemia and ongoing recurrent septic complications. <Anabella Pimentel - Last Filed: 02/24/17 17:14> Objective - Vital Signs Vital signs: Vital Signs Temp 101.7 F H 02/24/17 16:39 Pulse 94 02/24/17 16:39 Resp 19 02/24/17 16:39 BP 108/50 02/24/17 16:39 Pulse Ox 93 L 02/24/17 16:39 Intake & Output 02/23/17 02/24/17 02/24/17 18:59 06:59 18:59 Intake Total 420 974 5072 Output Total 300 180 200 Balance 480 600 830 Weight 86.5 kg 87.5 kg Intake: Tube Feeding 972 754 1978 Output: Urine 300 180 200 Other: Voiding Method Urinal Urinal Urinal # Voids 1 # Bowel Movements 3 1 1 - Labs CBC & Chem 7: 02/24/17 07:45 02/24/17 07:45 Labs: Abnormal Lab Results - Last 24 Hours (Table) 02/23/17 02/24/17 02/24/17 Range/Units 17:56 00:37 06:21 WBC (3.8-10.6) k/uL RBC (4.30-5.90) m/uL Hgb (13.0-17.5) gm/dL Hct (39.0-53.0) % MCHC (31.0-37.0) g/dL RDW (11.5-15.5) % Plt Count (150-450) k/uL Neutrophils # (Manual) (1.3-7.7) k/uL PT (9.0-12.0) sec INR (<1.2) Sodium (137-145) mmol/L Chloride (98-107) mmol/L Carbon Dioxide (22-30) mmol/L Creatinine (0.66-1.25) mg/dL Glucose (74-99) mg/dL POC Glucose (mg/dL) 118 H 137 H 130 H (75-99) mg/dL Calcium (8.4-10.2) mg/dL 02/24/17 02/24/17 02/24/17 Range/Units 07:45 07:45 07:45 WBC 3.5 L (3.8-10.6) k/uL RBC 3.06 L (4.30-5.90) m/uL Hgb 8.5 L (13.0-17.5) gm/dL Hct 27.6 L (39.0-53.0) % MCHC 30.9 L (31.0-37.0) g/dL RDW 19.5 H (11.5-15.5) % Plt Count 84 L (150-450) k/uL Neutrophils # (Manual) 0.63 L (1.3-7.7) k/uL PT 13.7 H (9.0-12.0) sec INR 1.4 H (<1.2) Sodium 131 L (137-145) mmol/L Chloride 97 L (98-107) mmol/L Carbon Dioxide 31 H (22-30) mmol/L Creatinine 0.57 L (0.66-1.25) mg/dL Glucose 111 H (74-99) mg/dL POC Glucose (mg/dL) (75-99) mg/dL Calcium 7.6 L (8.4-10.2) mg/dL 02/24/17 Range/Units 12:05 WBC (3.8-10.6) k/uL RBC (4.30-5.90) m/uL Hgb (13.0-17.5) gm/dL Hct (39.0-53.0) % MCHC (31.0-37.0) g/dL RDW (11.5-15.5) % Plt Count (150-450) k/uL Neutrophils # (Manual) (1.3-7.7) k/uL PT (9.0-12.0) sec INR (<1.2) Sodium (137-145) mmol/L Chloride (98-107) mmol/L Carbon Dioxide (22-30) mmol/L Creatinine (0.66-1.25) mg/dL Glucose (74-99) mg/dL POC Glucose (mg/dL) 111 H (75-99) mg/dL Calcium (8.4-10.2) mg/dL Microbiology - Last 24 Hours (Table) 02/21/17 12:37 Blood Culture - Preliminary Blood No Growth after 72 hours 02/17/17 14:53 Blood Culture - Final Blood No Growth after 144 hours 02/17/17 14:36 Blood Culture - Final Blood No Growth after 144 hours Assessment and Plan Plan: The joint evaluation that was done with the nurse practitioner. I have seen and inspected and evaluated the patient. I interviewed the patient. I discussed the plan with the patient. He is gradually improving. I will continue following up this patient. I do not have any changes on the above- mentioned plan.
[2017-02-24 17:55] LABS: Glucose,Whole Blood 125 mg/dL (75-99)
[2017-02-24] MEDS ORDERED: WARFARIN 3 MG TAB PO ONE (18:00)
--- NOTE | 2017-02-24 21:02 | P.PN ---
Subjective Principal diagnosis: sepsis 76-year-old male with a known history of chronic lymphocytic leukemia with not been any therapy up to this December. However that point in time he presented to Hospital feeling poorly. Had severe sore throat difficulty with chewing and swallowing. He was not feeling well. He was hospitalized at that time and treated with antibiotic therapy with concerns to pneumonia and high- grade fever. He also developed an extensive skin rash. Testing at our facility did confirm varicella-zoster which he had treatment for from beginning of his stay in December. Because of his ongoing difficulties with swallowing he was transferred to his oncologist at [facility]. 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 And he was initiated to Rituxan therapy. 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 At this time the patient is still somewhat miserable. He is unaware of the events that occurred that led him to the hospital. He apparently was unconscious when the found him and she was concerned that there was seizure. He constantly was brought to Hospital by EMS. At this time he is sitting up right somewhat comfortable. He is oriented and able to converse although he is quite hard of hearing He was having significant pains earlier and is now more comfortable. His significant abdominal discomforts have improved. He does cough and has had fever does not relate to significant sputum production or hemoptysis. temperature of 100.1 and overall is improved but stll weak. is very anxious to continue chemotherapy. The patient and that with the oncologist this morning. Once the patient is cleared from infection he will then be able to proceed with his next course of chemotherapy. The leg is extremely anxious that his day is coming up in a couple of days. She would like him to stay on track. The oncologist discussed that he needs to be free of infection before his next course of chemotherapy. The patient's was anxious about his fevers. Describes a temperature 104. Review of the nursing documentation shows the highest temperature in the last multiple days of 102.4, there was 100.4 temperature possibly misinterpreted as 104. With his fever a blood culture was obtained that is negative so far. Objective - Vital Signs Vital signs: Vital Signs Temp 101.7 F H 02/24/17 16:39 Pulse 94 02/24/17 16:39 Resp 19 02/24/17 16:39 BP 108/50 02/24/17 16:39 Pulse Ox 93 L 02/24/17 16:39 Intake & Output 02/24/17 02/24/17 02/25/17 06:59 18:59 06:59 Intake Total 780 1030 250 Output Total 180 200 Balance 600 830 250 Weight 87.5 kg Intake: Tube Feeding 780 1030 250 Output: Urine 180 200 Other: Voiding Method Urinal Urinal # Bowel Movements 1 1 - Exam 76-year-old male who appears older than his stated age. He is weak and ill in appearance relates he has less pain when he tries to swallow was seen by speech pathology and they're starting to improve his swallow mechanisms by training with ice cubes. HEENT: Anicteric conjunctiva are pink and moist nasal mucosa grossly intact without significant lesions, there is no thrush. Dry crusting from the extensive herpetic lesion to his lips. Not actively bleeding. Is noted he had extensive thrush that is now resolved just has some dry oral cavity Neck: The neck is supple without significant lymphadenopathy or thyromegaly. Lungs: Good bilateral air entry there is evidence of crackles at the left base otherwise the chest is quite clear Heart: Regular rate and rhythm with an audible S1-S2, no S3 no S4. There is no significant murmur click or rub, PMI was nondisplaced. Abdomen: Positive bowel sounds soft and nontender without palpable masses or organomegaly. There was no guarding or rebound. PEG tube site is intact Extremities: The upper extremities have excellent pulses they are symmetric, no significant petechiae or telangiectasia. No splinter hemorrhages were noted. The lower extremities are free from significant edema. The peripheral pulses were 2+ and symmetric. Neuro: Awake alert oriented to person and place. Does not exhibit acute gross focal sensory motor deficits at this time - Labs CBC & Chem 7: 02/24/17 07:45 02/24/17 07:45 Labs: Abnormal Lab Results - Last 24 Hours (Table) 02/24/17 02/24/17 02/24/17 Range/Units 00:37 06:21 07:45 WBC (3.8-10.6) k/uL RBC (4.30-5.90) m/uL Hgb (13.0-17.5) gm/dL Hct (39.0-53.0) % MCHC (31.0-37.0) g/dL RDW (11.5-15.5) % Plt Count (150-450) k/uL Neutrophils # (Manual) (1.3-7.7) k/uL PT 13.7 H (9.0-12.0) sec INR 1.4 H (<1.2) Sodium (137-145) mmol/L Chloride (98-107) mmol/L Carbon Dioxide (22-30) mmol/L Creatinine (0.66-1.25) mg/dL Glucose (74-99) mg/dL POC Glucose (mg/dL) 137 H 130 H (75-99) mg/dL Calcium (8.4-10.2) mg/dL 02/24/17 02/24/17 02/24/17 Range/Units 07:45 07:45 12:05 WBC 3.5 L (3.8-10.6) k/uL RBC 3.06 L (4.30-5.90) m/uL Hgb 8.5 L (13.0-17.5) gm/dL Hct 27.6 L (39.0-53.0) % MCHC 30.9 L (31.0-37.0) g/dL RDW 19.5 H (11.5-15.5) % Plt Count 84 L (150-450) k/uL Neutrophils # (Manual) 0.63 L (1.3-7.7) k/uL PT (9.0-12.0) sec INR (<1.2) Sodium 131 L (137-145) mmol/L Chloride 97 L (98-107) mmol/L Carbon Dioxide 31 H (22-30) mmol/L Creatinine 0.57 L (0.66-1.25) mg/dL Glucose 111 H (74-99) mg/dL POC Glucose (mg/dL) 111 H (75-99) mg/dL Calcium 7.6 L (8.4-10.2) mg/dL 02/24/17 Range/Units 17:53 WBC (3.8-10.6) k/uL RBC (4.30-5.90) m/uL Hgb (13.0-17.5) gm/dL Hct (39.0-53.0) % MCHC (31.0-37.0) g/dL RDW (11.5-15.5) % Plt Count (150-450) k/uL Neutrophils # (Manual) (1.3-7.7) k/uL PT (9.0-12.0) sec INR (<1.2) Sodium (137-145) mmol/L Chloride (98-107) mmol/L Carbon Dioxide (22-30) mmol/L Creatinine (0.66-1.25) mg/dL Glucose (74-99) mg/dL POC Glucose (mg/dL) 125 H (75-99) mg/dL Calcium (8.4-10.2) mg/dL Microbiology - Last 24 Hours (Table) 02/21/17 12:37 Blood Culture - Preliminary Blood No Growth after 72 hours 02/17/17 14:53 Blood Culture - Final Blood No Growth after 144 hours Laboratory Results WBC 3.5 k/uL (3.8-10.6) L 02/24/17 07:45 RBC 3.06 m/uL (4.30-5.90) L 02/24/17 07:45 Hgb 8.5 gm/dL (13.0-17.5) L 02/24/17 07:45 Hct 27.6 % (39.0-53.0) L 02/24/17 07:45 MCV 90.2 fL (80.0-100.0) 02/24/17 07:45 MCH 27.8 pg (25.0-35.0) 02/24/17 07:45 MCHC 30.9 g/dL (31.0-37.0) L 02/24/17 07:45 RDW 19.5 % (11.5-15.5) H 02/24/17 07:45 Plt Count 84 k/uL (150-450) L 02/24/17 07:45 Neutrophils % (Manual) 18 % 02/24/17 07:45 Band Neutrophils % 1 % 02/17/17 07:50 Lymphocytes % (Manual) 81 % 02/24/17 07:45 Monocytes % (Manual) 6 % 02/23/17 13:25 Eosinophils % (Manual) 1 % 02/24/17 07:45 Neutrophils # (Manual) 0.63 k/uL (1.3-7.7) L 02/24/17 07:45 Lymphocytes # (Manual) 2.84 k/uL (1.0-4.8) 02/24/17 07:45 Monocytes # (Manual) 0.23 k/uL (0-1.0) 02/23/17 13:25 Eosinophils # (Manual) 0.04 k/uL (0-0.7) 02/24/17 07:45 Nucleated RBCs 0 /100 WBC (0-0) 02/24/17 07:45 Manual Slide Review Performed 02/24/17 07:45 Polychromasia Present 02/23/17 13:25 Hypochromasia Marked 02/24/17 07:45 Poikilocytosis (manual Present 02/19/17 07:36 Anisocytosis Slight 02/24/17 07:45 Macrocytosis Slight 02/19/17 07:36 Ovalocytes Present 02/24/17 07:45 PT 13.7 sec (9.0-12.0) H 02/24/17 07:45 INR 1.4 (<1.2) H 02/24/17 07:45 APTT 27.6 sec (22.0-30.0) 02/17/17 07:50 Sodium 131 mmol/L (137-145) L 02/24/17 07:45 Potassium 3.9 mmol/L (3.5-5.1) 02/24/17 07:45 Chloride 97 mmol/L (98-107) L 02/24/17 07:45 Carbon Dioxide 31 mmol/L (22-30) H 02/24/17 07:45 Anion Gap 3 mmol/L 02/24/17 07:45 BUN 19 mg/dL (9-20) 02/24/17 07:45 Creatinine 0.57 mg/dL (0.66-1.25) L 02/24/17 07:45 Est GFR (MDRD) Af Amer >60 (>60 ml/min/1.73 sqM) 02/24/17 07:45 Est GFR (MDRD) Non-Af >60 (>60 ml/min/1.73 sqM) 02/24/17 07:45 Glucose 111 mg/dL (74-99) H 02/24/17 07:45 POC Glucose (mg/dL) 125 mg/dL (75-99) H 02/24/17 17:53 POC Glu Procedure Rn ID Phoebe Lezama 02/24/17 17:53 Osmolality 274 mosm/kg (280-301) L 02/18/17 07:26 Plasma Lactic Acid Jason 1.2 mmol/L (0.7-2.0) 02/17/17 07:50 Uric Acid 2.0 mg/dL (3.5-8.5) L 02/19/17 07:36 Calcium 7.6 mg/dL (8.4-10.2) L 02/24/17 07:45 Phosphorus 2.9 mg/dL (2.5-4.5) 02/17/17 07:50 Magnesium 1.6 mg/dL (1.6-2.3) 02/23/17 06:52 Total Bilirubin 0.5 mg/dL (0.2-1.3) 02/18/17 07:26 AST 29 U/L (17-59) 02/18/17 07:26 ALT 43 U/L (21-72) 02/18/17 07:26 Alkaline Phosphatase 52 U/L (38-126) 02/18/17 07:26 Total Creatine Kinase <20 U/L (55-170) L 02/17/17 07:50 CK-MB (CK-2) 0.3 ng/mL (0.0-2.4) 02/17/17 07:50 CK-MB (CK-2) Rel Index 02/17/17 07:50 Troponin I <0.012 ng/mL (0.000-0.034) 02/18/17 12:52 Total Protein 4.1 g/dL (6.3-8.2) L 02/18/17 07:26 Albumin 2.4 g/dL (3.5-5.0) L 02/18/17 07:26 TSH 5.540 mIU/L (0.465-4.680) H 02/19/17 07:36 Free T4 1.20 ng/dL (0.78-2.19) 02/19/17 07:36 Cortisol 18 ug/dL 02/19/17 07:36 Urine Color Yellow 02/17/17 07:50 Urine Appearance Clear (Clear) 02/17/17 07:50 Urine pH 8.0 (5.0-8.0) 02/17/17 07:50 Ur Specific [place] 1.010 (1.001-1.035) 02/17/17 07:50 Urine Protein Trace (Negative) H 02/17/17 07:50 Urine Glucose (UA) Negative (Negative) 02/17/17 07:50 Urine Ketones Negative (Negative) 02/17/17 07:50 Urine Blood Negative (Negative) 02/17/17 07:50 Urine Nitrite Negative (Negative) 02/17/17 07:50 Urine Bilirubin Negative (Negative) 02/17/17 07:50 Urine Urobilinogen <2.0 mg/dL (<2.0) 02/17/17 07:50 Ur Leukocyte Esterase Negative (Negative) 02/17/17 07:50 Urine Osmolality 793 mosm/kg (50-1400) 02/18/17 06:48 Ur Random Creatinine 63.8 mg/dL 02/17/17 07:50 Ur Random Sodium 141 mmol/L (30-90) H 02/18/17 06:48 Ur Random Potassium 43.7 mmol/L 02/17/17 07:50 Ur Random Urea Nitrogn 433.0 mg/dL 02/17/17 07:50 Ur Random Calcium 6.6 mg/dL 02/17/17 07:50 Stool Occult Blood Negative (Negative) 02/24/17 10:50 Vancomycin Trough 14.2 ug/mL 02/23/17 08:44 IgG 226.0 mg/dL (700.0-1600.0) L 02/20/17 07:17 IgA <25.5 mg/dL (60.0-350.0) L 02/20/17 07:17 IgM <16.9 mg/dL (40.0-280.0) L 02/20/17 07:17 Microbiology 02/21/17 12:37 Blood Blood Culture - Preliminary No Growth after 72 hours 02/17/17 14:53 Blood Blood Culture - Final No Growth after 144 hours 02/17/17 14:36 Blood Blood Culture - Final No Growth after 144 hours 02/17/17 07:50 Blood Blood Culture - Final No Growth after 144 hours 02/17/17 22:35 Sputum Gram Stain - Final 02/17/17 22:35 Sputum Sputum Culture - Final Methicillin resist S. aureus 02/17/17 07:50 Urine,Voided Urine Culture - Final 02/17/17 12:02 Sputum Gram Stain - Final 02/17/17 12:02 Sputum Sputum Culture - Final Assessment and Plan (1) Febrile illness, acute Status: Acute (2) Left lower lobe pneumonia Narrative/Plan: 76-year-old male noted infectious disease service for his 2 recent admissions. During the summer he had significant difficulties with the onset difficulty with swallowing and fevers and varicella-zoster. At that time there was concerns that his malignancy had changed. 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 He received Rituxan therapy. Was also noted to have hypogammaglobulinemia and he received IgG therapy. If not clear when his last IgG therapy was given. We have a more recent IgG level that appears to be low at just over 400. Oncology is following and will help determine the need for immunoglobulin replacement therapy at this time. Recent cultures are reviewed and there was evidence of Enterobacter and MRSA in his sputum. sputum revealed only MRSA and will be able to discontinue the Merrem overall improved but low grade temp today. Fortunately blood cultures are negative so far. His discomforts are improving. Nutrition is being given through his tube. His recent varicella-zoster is completely resolved. He is being followed by oncology and until he is well cannot receive further chemotherapy On the he did receive his dose of intravenous immunoglobulin. He hopefully will continue to show ongoing improvement. Fevers have improved today. Patient seems to be showing some improvement. Continue current antibiotic therapy. Meropenem was discontinued with no further fever. As noted the oral cavity exam shows evidence of some herpetic lesions in the posterior pharynx. These may be giving him some of his discomforts. The possibility there may also be causing some of his fever is concerned and Valtrex as started via his PEG tube. Hopefully the infection resolves and performance status are high enough for him to proceed. Status: Acute (3) Small B-cell lymphoma Status: Acute
[2017-02-24] MEDS: LORazepam 1 MG TAB PO PRN (22:36)
[2017-02-25 00:04] LABS: Glucose,Whole Blood 110 mg/dL (75-99)
[2017-02-25] MEDS: LEVOTHYROXINE 125 MCG TAB PEG/G-TUBE SCH (05:49)
[2017-02-25 06:32] LABS: Glucose,Whole Blood 118 mg/dL (75-99)
[2017-02-25] MEDS: IPRATROPIUM-ALBUTEROL 3 ML NEB INHALATION PRN (08:03)
[2017-02-25] MEDS: SYMBICORT 160-4.5 MCG INHALER INHALATION SCH ×2 (08:05→19:53)
[2017-02-25 08:17] LABS: INR 1.6 (<1.2); Prothrombin Time 15.5 sec (9.0-12.0)
[2017-02-25 08:36] LABS: Anion Gap 3 mmol/L; Blood Urea Nitrogen 21 mg/dL (9-20); Calcium 7.7 mg/dL (8.4-10.2); Carbon Dioxide 31 mmol/L (22-30); Chloride 97 mmol/L (98-107); Glucose 105 mg/dL (74-99); Magnesium 1.8 mg/dL (1.6-2.3); Non-African American GFR(MDRD) >60 (>60 ml/min/1.73 sqM); Potassium 4.3 mmol/L (3.5-5.1); Sodium 131 mmol/L (137-145)
[2017-02-25] MEDS: VANCOMYCIN 1,750 MG in SODIUM CHLORIDE 0.9% 250 ML IVPB SCH ×2 (09:02→19:30)
[2017-02-25] MEDS: NYSTATIN 100,000 UNIT/ML SUSP 500,000 UNIT/5 ML CUP PO SCH ×4 (09:10→23:15)
[2017-02-25] MEDS: valACYclovir 500 MG TAB PO SCH ×2 (09:10→20:35)
[2017-02-25] MEDS: FUROSEMIDE 20 MG TAB PO SCH ×3 (09:10→14:07)
[2017-02-25] MEDS: SODIUM CHLORIDE TAB 1 GM TAB PO SCH ×2 (09:10→20:35)
[2017-02-25] MEDS: DILTIAZEM ORAL 30 MG TAB PO SCH ×5 (09:10→23:13)
[2017-02-25] MEDS: ENOXAPARIN 40 MG/0.4 ML SYRINGE SQ SCH (09:10)
--- NOTE | 2017-02-25 11:43 | P.PN ---
Subjective Patient resting comfortably in bed without complaint at this time. Noted improvement to edema to legs. at bedside. Has concerns about the drop in hemoglobin Objective - Vital Signs Vital signs: Vital Signs Temp 99.3 F 02/25/17 07:00 Pulse 95 02/25/17 08:12 Resp 18 02/25/17 07:00 BP 123/60 02/25/17 07:00 Pulse Ox 95 02/25/17 07:00 Intake & Output 02/24/17 02/25/17 02/25/17 18:59 06:59 18:59 Intake Total 1030 750 260 Output Total 200 Balance 830 750 260 Weight 87 kg Intake: Tube Feeding 1030 750 260 Output: Urine 200 Other: Voiding Method Urinal Urinal # Bowel Movements 1 - Constitutional General appearance: Present: average body habitus - EENT EENT Comment(s): Left-sided facial droop ENT: Present: hard of hearing Ears: bilateral: normal - Neck Neck: Present: normal ROM - Respiratory Respiratory: bilateral: rhonchi - Cardiovascular Rhythm: regularly irregular - Peripheral edema leg Peripheral Edema: bilateral: 1+ - Gastrointestinal Gastrointestinal Comment(s): Gastric feeding tube in place General gastrointestinal: Present: soft - Integumentary Integumentary: Present: normal - Neurologic Neurologic Comment(s): Left-sided facial droop - Musculoskeletal Musculoskeletal: Present: generalized weakness - Psychiatric Psychiatric: Present: A&O x's 3, appropriate affect, intact judgment & insight - Labs CBC & Chem 7: 02/24/17 07:45 02/25/17 06:55 Labs: Abnormal Lab Results - Last 24 Hours (Table) 02/24/17 02/24/17 02/25/17 Range/Units 12:05 17:53 00:03 PT (9.0-12.0) sec INR (<1.2) Sodium (137-145) mmol/L Chloride (98-107) mmol/L Carbon Dioxide (22-30) mmol/L BUN (9-20) mg/dL Creatinine (0.66-1.25) mg/dL Glucose (74-99) mg/dL POC Glucose (mg/dL) 111 H 125 H 110 H (75-99) mg/dL Calcium (8.4-10.2) mg/dL 02/25/17 02/25/17 02/25/17 Range/Units 06:29 06:55 07:03 PT 15.5 H (9.0-12.0) sec INR 1.6 H (<1.2) Sodium 131 L (137-145) mmol/L Chloride 97 L (98-107) mmol/L Carbon Dioxide 31 H (22-30) mmol/L BUN 21 H (9-20) mg/dL Creatinine 0.57 L (0.66-1.25) mg/dL Glucose 105 H (74-99) mg/dL POC Glucose (mg/dL) 118 H (75-99) mg/dL Calcium 7.7 L (8.4-10.2) mg/dL Microbiology - Last 24 Hours (Table) 02/21/17 12:37 Blood Culture - Preliminary Blood No Growth after 72 hours Assessment and Plan Plan: Assessment Left lower lobe pneumonia Episodic of fever Chronic lymphocytic leukemia 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
[2017-02-25 11:46] LABS: Glucose,Whole Blood 126 mg/dL (75-99)
[2017-02-25] MEDS: MULTIVITAMINS, THERA 1 EACH TAB PEG/G-TUBE SCH (13:50)
--- NOTE | 2017-02-25 14:18 | P.PN ---
Subjective 76-year-old male patient is very well-known to me. Unfortunately patient had a prolonged and complicated course of CLL. Note that the patient was in a good state of health until approximately 3 months ago when he started having infectious complications. 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 Note that he was transferred to [facility] and he had an ENT evaluation done at that time that showed lymphomatous infiltration of his throat which contributed to his difficulty in swallowing. As such the patient has a PEG tube for enteral feeding and nutritional support and his periodically being evaluated by the swallow pathologist for his ability to eat orally. Currently is on enteral feeding via a PEG tube. Is also known to have COPD, hypothyroidism, atrial fibrillation as comorbid conditions This patient was recently in the hospital. He was treated and he was discharged to go home where he was being taken care of by his . The patient came into the hospital because of syncopal episodes probably related to dehydration and orthostasis. At the same time he was hyponatremic and the possibility of left lower lobe pneumonia was also entertained 9 that there was a new consolidation of the left lung base. His sputum showed MRSA and make and the patient was started on vancomycin. He is also meropenem. He is currently receiving antibiotics without any major complications or side effects. He still has a congested cough unable to bring up much of sputum. He does have a decent coughing reflex. No respiratory distress. No hemoptysis no pleurisy. No chest pain. No altered mentation. On and off is still having fever the most recent of which was yesterday for which the patient was given IV Tylenol.. He is being followed up by infectious disease. He is also on long-term anticoagulation with warfarin regarding his atrial fibrillation. INR is subtherapeutic at this point. On 02/24/2017 the patient seen in follow-up for left lower lobe pneumonia, sputum positive for MRSA, Fletcher's palsy, difficulty swallowing, episodic fever secondary to CLL, and hyponatremia. Patient's spouse as it is at the bedside. Patient has been participating with the physical therapy, ambulating in hallway. Patient and the spouse both verbalize improvement in overall clinical status. Patient denies any specific restrictive complaints, maintains oxygen saturations in the 93-94% range on 4 L per nasal cannula. Speech therapist is on consult and will reevaluate the swallowing ability today. Patient will call will continue with tube feedings via the PEG tube, states she tolerates it well. Continues with intermittent febrile episodes, treated with acetaminophen. Lung sounds-a few scattered rales at the bases of the lungs. Nephrology increased Lasix to twice a day yesterday, improvement in the bilateral lower extremity edema has been noted. Today's serum sodium is 131 and it is improved from 128 on 02/23/2017. On 02/25/2017 I see this patient quite awake and alert and he is interactive. He is not having any major stroke difficulties. He is coughing up mucus. He has MRSA in the sputum and MRSA pneumonia suspected and patient is currently on IV vancomycin. A total duration of antibiotics is not determined although I suspect the patient will need somewhere between 10-14 days. No fever. No chills. PEG tube site is clean. The patient is still receiving enteral feeding for nutritional support. The patient is using the appropriate hearing aids and he is able to communicate better. No significant weakness at this point as the patient is doing daily walking. No fever. No chills. The patient is on long-term anticoagulation regarding his atrial fibrillation and INR from today subtherapeutic and further adjustments will be done accordingly. 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 Objective - Vital Signs Vital signs: Vital Signs Temp 99.3 F 02/25/17 07:00 Pulse 95 02/25/17 08:12 Resp 18 02/25/17 08:00 BP 123/60 02/25/17 07:00 Pulse Ox 95 02/25/17 07:00 Intake & Output 02/24/17 02/25/17 02/25/17 18:59 06:59 18:59 Intake Total 1030 750 715 Output Total 200 Balance 830 750 715 Weight 87 kg Intake: Tube Feeding 1030 750 715 Output: Urine 200 Other: Voiding Method Urinal Urinal Urinal # Bowel Movements 1 - Exam Head exam was generally normal. There was no scleral icterus or corneal arcus. Mucous membranes were moist. The patient has an obvious facial asymmetry with a left facial droop related to his Fletcher's palsy.Neck was supple and without jugular venous distension, thyromegaly, or carotid bruits. Carotids were easily palpable bilaterally. There was no adenopathy. Lung sounds are diminished in lung bases bilaterally. Few scattered expiratory wheezes. Crackles in lung bases more so on the left.Cardiac exam revealed the PMI to be normally situated and sized. The rhythm was regular and no extrasystoles were noted during several minutes of auscultation. The first and second heart sounds were normal and physiologic splitting of the second heart sound was noted. There were no murmurs, rubs, clicks, or gallops.Abdominal exam revealed normal bowel sounds. The abdomen was soft, non-tender, and without masses, organomegaly, or appreciable enlargement of the abdominal aorta. The PEG tube site is dry clean and intact. No direct tenderness no rebound tenderness. No guarding. Bowel sounds are hypoactive at the present.Examination of the extremities revealed easily palpable radial, femoral and pedal pulses. There was no cyanosis, clubbing or edema. Neurologically the patient has impaired hearing and the patient has an obvious facial palsy involving the left face. Motor function the left upper and left lower oximetry is within normal limits. In fact motor function is symmetric in all 4 extremities. Coughing reflexes present. Swallow reflex is poor. Skeletal exam is within normal limits without any deformities or fractures. Skin exam is within normal without any active rash or skin eruption. - Labs CBC & Chem 7: 02/24/17 07:45 02/25/17 06:55 Labs: Abnormal Lab Results - Last 24 Hours (Table) 02/24/17 02/25/17 02/25/17 Range/Units 17:53 00:03 06:29 PT (9.0-12.0) sec INR (<1.2) Sodium (137-145) mmol/L Chloride (98-107) mmol/L Carbon Dioxide (22-30) mmol/L BUN (9-20) mg/dL Creatinine (0.66-1.25) mg/dL Glucose (74-99) mg/dL POC Glucose (mg/dL) 125 H 110 H 118 H (75-99) mg/dL Calcium (8.4-10.2) mg/dL 02/25/17 02/25/17 02/25/17 Range/Units 06:55 07:03 11:43 PT 15.5 H (9.0-12.0) sec INR 1.6 H (<1.2) Sodium 131 L (137-145) mmol/L Chloride 97 L (98-107) mmol/L Carbon Dioxide 31 H (22-30) mmol/L BUN 21 H (9-20) mg/dL Creatinine 0.57 L (0.66-1.25) mg/dL Glucose 105 H (74-99) mg/dL POC Glucose (mg/dL) 126 H (75-99) mg/dL Calcium 7.7 L (8.4-10.2) mg/dL Microbiology - Last 24 Hours (Table) 02/21/17 12:37 Blood Culture - Preliminary Blood No Growth after 72 hours Assessment and Plan Plan: Assessment 1 suspected left lower lobe pneumonia. The patient has a sputum that's positive for MRSA. This could be potentially a colonizer versus a true infection in the left lung base. A healthcare. Pneumonia needs to be considered knowing that the patient has been in and out of the hospital multiple occasions. Clinically the patient is improving. He is currently afebrile for now. His respiratory status improved. He has minimal sputum production at this point. No significant respiratory distress. He is on 4 L of oxygen nasal cannula and his saturations are 95% and which should be able to wean down the FiO2 further. 2 episodic fever. Rule out infectious. 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 Those being adjusted by pharmacy. He is pneumonia is improving. His breathing has improved. Continue Symbicort. Continue DuoNeb nebulized treatment [id number]. Continue antibiotic ventilation with warfarin to achieve a therapeutic PT/INR. Enteral feeding for the teachers support. Feeding. Physical therapy. Ambulation. Discharge planning is in progress. Duration of the antibiotic treatment needs to be discussed with ID. The meropenem was discontinued. CULTURES are negative. His varicella-zoster has recovered. Overall is improving. We'll discuss also with oncology the possibility and the need for IVIG treatment.
[2017-02-25 17:26] LABS: Glucose,Whole Blood 120 mg/dL (75-99)
[2017-02-25] MEDS ORDERED: WARFARIN 10 MG TAB PO ONE (18:00)
[2017-02-25] MEDS: LORazepam 1 MG TAB PO PRN (20:36)
--- NOTE | 2017-02-25 21:45 | P.PN ---
Subjective Principal diagnosis: sepsis 76-year-old male with a known history of chronic lymphocytic leukemia with not been any therapy up to this December. However that point in time he presented to Hospital feeling poorly. Had severe sore throat difficulty with chewing and swallowing. He was not feeling well. He was hospitalized at that time and treated with antibiotic therapy with concerns to pneumonia and high- grade fever. He also developed an extensive skin rash. Testing at our facility did confirm varicella-zoster which he had treatment for from beginning of his stay in December. Because of his ongoing difficulties with swallowing he was transferred to his oncologist at [facility]. 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 And he was initiated to Rituxan therapy. 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 At this time the patient is still somewhat miserable. He is unaware of the events that occurred that led him to the hospital. He apparently was unconscious when the found him and she was concerned that there was seizure. He constantly was brought to Hospital by EMS. At this time he is sitting up right somewhat comfortable. He is oriented and able to converse although he is quite hard of hearing He was having significant pains earlier and is now more comfortable. His significant abdominal discomforts have improved. He does cough and has had fever does not relate to significant sputum production or hemoptysis. temperature of 100.1 and overall is improved but stll weak. is very anxious to continue chemotherapy. The patient and that with the oncologist this morning. Once the patient is cleared from infection he will then be able to proceed with his next course of chemotherapy. The leg is extremely anxious that his day is coming up in a couple of days. She would like him to stay on track. The oncologist discussed that he needs to be free of infection before his next course of chemotherapy. 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 Objective - Vital Signs Vital signs: Vital Signs Temp 100.2 F H 02/25/17 21:20 Pulse 88 02/25/17 21:20 Resp 17 02/25/17 21:20 BP 117/59 02/25/17 21:20 Pulse Ox 98 02/25/17 21:20 Intake & Output 09/20/17 09/20/17 09/21/17 06:59 18:59 06:59 Intake Total 750 905 Balance 750 905 Weight 87 kg Intake: Tube Feeding 750 905 Other: Voiding Method Urinal Urinal # Voids 1 - Exam 76-year-old male who appears older than his stated age. He is weak and ill in appearance relates he has less pain when he tries to swallow was seen by speech pathology and they're starting to improve his swallow mechanisms by training with ice cubes. HEENT: Anicteric conjunctiva are pink and moist nasal mucosa grossly intact without significant lesions, there is no thrush. Is noted he had extensive thrush that is now resolved just has some dry oral cavity evidence of new HSV lesions left posterior pharynx, improving today Neck: The neck is supple without significant lymphadenopathy or thyromegaly. Lungs: Good bilateral air entry there is evidence of crackles at the left base otherwise the chest is quite clear Heart: Regular rate and rhythm with an audible S1-S2, no S3 no S4. There is no significant murmur click or rub, PMI was nondisplaced. Abdomen: Positive bowel sounds soft and nontender without palpable masses or organomegaly. There was no guarding or rebound. PEG tube site is intact Extremities: The upper extremities have excellent pulses they are symmetric, no significant petechiae or telangiectasia. No splinter hemorrhages were noted. The lower extremities are free from significant edema. The peripheral pulses were 2+ and symmetric. Neuro: Awake alert oriented to person and place. Does not exhibit acute gross focal sensory motor deficits at this time - Labs CBC & Chem 7: 02/24/17 07:45 02/25/17 06:55 Labs: Abnormal Lab Results - Last 24 Hours (Table) 02/25/17 02/25/17 02/25/17 Range/Units 00:03 06:29 06:55 PT (9.0-12.0) sec INR (<1.2) Sodium 131 L (137-145) mmol/L Chloride 97 L (98-107) mmol/L Carbon Dioxide 31 H (22-30) mmol/L BUN 21 H (9-20) mg/dL Creatinine 0.57 L (0.66-1.25) mg/dL Glucose 105 H (74-99) mg/dL POC Glucose (mg/dL) 110 H 118 H (75-99) mg/dL Calcium 7.7 L (8.4-10.2) mg/dL 02/25/17 02/25/17 02/25/17 Range/Units 07:03 11:43 17:23 PT 15.5 H (9.0-12.0) sec INR 1.6 H (<1.2) Sodium (137-145) mmol/L Chloride (98-107) mmol/L Carbon Dioxide (22-30) mmol/L BUN (9-20) mg/dL Creatinine (0.66-1.25) mg/dL Glucose (74-99) mg/dL POC Glucose (mg/dL) 126 H 120 H (75-99) mg/dL Calcium (8.4-10.2) mg/dL Microbiology - Last 24 Hours (Table) 02/21/17 12:37 Blood Culture - Preliminary Blood No Growth after 96 hours Laboratory Results WBC 3.5 k/uL (3.8-10.6) L 02/24/17 07:45 RBC 3.06 m/uL (4.30-5.90) L 02/24/17 07:45 Hgb 8.5 gm/dL (13.0-17.5) L 02/24/17 07:45 Hct 27.6 % (39.0-53.0) L 02/24/17 07:45 MCV 90.2 fL (80.0-100.0) 02/24/17 07:45 MCH 27.8 pg (25.0-35.0) 02/24/17 07:45 MCHC 30.9 g/dL (31.0-37.0) L 02/24/17 07:45 RDW 19.5 % (11.5-15.5) H 02/24/17 07:45 Plt Count 84 k/uL (150-450) L 02/24/17 07:45 Neutrophils % (Manual) 18 % 02/24/17 07:45 Band Neutrophils % 1 % 02/17/17 07:50 Lymphocytes % (Manual) 81 % 02/24/17 07:45 Monocytes % (Manual) 6 % 02/23/17 13:25 Eosinophils % (Manual) 1 % 02/24/17 07:45 Neutrophils # (Manual) 0.63 k/uL (1.3-7.7) L 02/24/17 07:45 Lymphocytes # (Manual) 2.84 k/uL (1.0-4.8) 02/24/17 07:45 Monocytes # (Manual) 0.23 k/uL (0-1.0) 02/23/17 13:25 Eosinophils # (Manual) 0.04 k/uL (0-0.7) 02/24/17 07:45 Nucleated RBCs 0 /100 WBC (0-0) 02/24/17 07:45 Manual Slide Review Performed 02/24/17 07:45 Polychromasia Present 02/23/17 13:25 Hypochromasia Marked 02/24/17 07:45 Poikilocytosis (manual Present 02/19/17 07:36 Anisocytosis Slight 02/24/17 07:45 Macrocytosis Slight 02/19/17 07:36 Ovalocytes Present 02/24/17 07:45 PT 15.5 sec (9.0-12.0) H 02/25/17 07:03 INR 1.6 (<1.2) H 02/25/17 07:03 APTT 27.6 sec (22.0-30.0) 02/17/17 07:50 Sodium 131 mmol/L (137-145) L 02/25/17 06:55 Potassium 4.3 mmol/L (3.5-5.1) 02/25/17 06:55 Chloride 97 mmol/L (98-107) L 02/25/17 06:55 Carbon Dioxide 31 mmol/L (22-30) H 02/25/17 06:55 Anion Gap 3 mmol/L 02/25/17 06:55 BUN 21 mg/dL (9-20) H 02/25/17 06:55 Creatinine 0.57 mg/dL (0.66-1.25) L 02/25/17 06:55 Est GFR (MDRD) Af Amer >60 (>60 ml/min/1.73 sqM) 02/25/17 06:55 Est GFR (MDRD) Non-Af >60 (>60 ml/min/1.73 sqM) 02/25/17 06:55 Glucose 105 mg/dL (74-99) H 02/25/17 06:55 POC Glucose (mg/dL) 120 mg/dL (75-99) H 02/25/17 17:23 POC Glu Steel Cutter ID Gita Evans 02/25/17 17:23 Osmolality 274 mosm/kg (280-301) L 02/18/17 07:26 Plasma Lactic Acid Jason 1.2 mmol/L (0.7-2.0) 02/17/17 07:50 Uric Acid 2.0 mg/dL (3.5-8.5) L 02/19/17 07:36 Calcium 7.7 mg/dL (8.4-10.2) L 02/25/17 06:55 Phosphorus 2.9 mg/dL (2.5-4.5) 02/17/17 07:50 Magnesium 1.8 mg/dL (1.6-2.3) 02/25/17 06:55 Total Bilirubin 0.5 mg/dL (0.2-1.3) 02/18/17 07:26 AST 29 U/L (17-59) 02/18/17 07:26 ALT 43 U/L (21-72) 02/18/17 07:26 Alkaline Phosphatase 52 U/L (38-126) 02/18/17 07:26 Total Creatine Kinase <20 U/L (55-170) L 02/17/17 07:50 CK-MB (CK-2) 0.3 ng/mL (0.0-2.4) 02/17/17 07:50 CK-MB (CK-2) Rel Index 02/17/17 07:50 Troponin I <0.012 ng/mL (0.000-0.034) 02/18/17 12:52 Total Protein 4.1 g/dL (6.3-8.2) L 02/18/17 07:26 Albumin 2.4 g/dL (3.5-5.0) L 02/18/17 07:26 TSH 5.540 mIU/L (0.465-4.680) H 02/19/17 07:36 Free T4 1.20 ng/dL (0.78-2.19) 02/19/17 07:36 Cortisol 18 ug/dL 02/19/17 07:36 Urine Color Yellow 02/17/17 07:50 Urine Appearance Clear (Clear) 02/17/17 07:50 Urine pH 8.0 (5.0-8.0) 02/17/17 07:50 Ur Specific [place] 1.010 (1.001-1.035) 02/17/17 07:50 Urine Protein Trace (Negative) H 02/17/17 07:50 Urine Glucose (UA) Negative (Negative) 02/17/17 07:50 Urine Ketones Negative (Negative) 02/17/17 07:50 Urine Blood Negative (Negative) 02/17/17 07:50 Urine Nitrite Negative (Negative) 02/17/17 07:50 Urine Bilirubin Negative (Negative) 02/17/17 07:50 Urine Urobilinogen <2.0 mg/dL (<2.0) 02/17/17 07:50 Ur Leukocyte Esterase Negative (Negative) 02/17/17 07:50 Urine Osmolality 793 mosm/kg (50-1400) 02/18/17 06:48 Ur Random Creatinine 63.8 mg/dL 02/17/17 07:50 Ur Random Sodium 141 mmol/L (30-90) H 02/18/17 06:48 Ur Random Potassium 43.7 mmol/L 02/17/17 07:50 Ur Random Urea Nitrogn 433.0 mg/dL 02/17/17 07:50 Ur Random Calcium 6.6 mg/dL 02/17/17 07:50 Stool Occult Blood Negative (Negative) 02/24/17 10:50 Vancomycin Trough 14.2 ug/mL 02/23/17 08:44 IgG 226.0 mg/dL (700.0-1600.0) L 02/20/17 07:17 IgA <25.5 mg/dL (60.0-350.0) L 02/20/17 07:17 IgM <16.9 mg/dL (40.0-280.0) L 02/20/17 07:17 Microbiology 02/21/17 12:37 Blood Blood Culture - Preliminary No Growth after 96 hours 02/17/17 14:53 Blood Blood Culture - Final No Growth after 144 hours 02/17/17 14:36 Blood Blood Culture - Final No Growth after 144 hours 02/17/17 07:50 Blood Blood Culture - Final No Growth after 144 hours 02/17/17 22:35 Sputum Gram Stain - Final 02/17/17 22:35 Sputum Sputum Culture - Final Methicillin resist S. aureus 02/17/17 07:50 Urine,Voided Urine Culture - Final 02/17/17 12:02 Sputum Gram Stain - Final 02/17/17 12:02 Sputum Sputum Culture - Final Assessment and Plan (1) Febrile illness, acute Status: Acute (2) Left lower lobe pneumonia Narrative/Plan: 76-year-old male noted infectious disease service for his 2 recent admissions. During the summer he had significant difficulties with the onset difficulty with swallowing and fevers and varicella-zoster. At that time there was concerns that his malignancy had changed. 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 He received Rituxan therapy. Was also noted to have hypogammaglobulinemia and he received IgG therapy. If not clear when his last IgG therapy was given. We have a more recent IgG level that appears to be low at just over 400. Oncology is following and will help determine the need for immunoglobulin replacement therapy at this time. Recent cultures are reviewed and there was evidence of Enterobacter and MRSA in his sputum. sputum revealed only MRSA and will be able to discontinue the Merrem overall improved but low grade temp today. Fortunately blood cultures are negative so far. His discomforts are improving. Nutrition is being given through his tube. His recent varicella-zoster is completely resolved. He is being followed by oncology and until he is well cannot receive further chemotherapy On the he did receive his dose of intravenous immunoglobulin. He hopefully will continue to show ongoing improvement. Fevers have improved . Patient seems to be showing some improvement. Continue current antibiotic therapy. Meropenem was discontinued . As noted the oral cavity exam shows evidence of some herpetic lesions in the posterior pharynx. These may be giving him some of his discomforts. The possibility there may also be causing some of his fever is concerned and Valtrex was started via his PEG tube. Follow up blood cultures requested today is not a chest x-ray is markedly improved. Hopefully the infection resolves and performance status are high enough for him to proceed. Status: Acute (3) Small B-cell lymphoma Status: Acute
--- NOTE | 2017-02-25 23:10 | P.PN ---
Subjective The patient continues to improve slowly. Shortness of breath is better. Cough is improved and sputum is mostly clear. He did have a fever of 101 overnight. Objective - Vital Signs Vital signs: Vital Signs Temp 100.2 F H 02/25/17 21:20 Pulse 88 02/25/17 21:20 Resp 17 02/25/17 21:20 BP 117/59 02/25/17 21:20 Pulse Ox 98 02/25/17 21:20 Intake & Output 02/25/17 02/25/17 02/26/17 06:59 18:59 06:59 Intake Total 750 905 Balance 750 905 Weight 87 kg Intake: Tube Feeding 750 905 Other: Voiding Method Urinal Urinal # Voids 1 - Constitutional General appearance: Present: no acute distress - EENT Eyes: Present: EOMI, PERRLA ENT: Present: hearing grossly normal, normal oropharynx - Neck Thyroid: bilateral: normal size - Respiratory Respiratory: bilateral: rales - Cardiovascular Rhythm: regular Heart sounds: normal: S1, S2 - Gastrointestinal General gastrointestinal: Present: normal bowel sounds, soft - Integumentary Integumentary: Present: normal - Neurologic Neurologic: Present: focal deficits (Marked hearing loss) - Musculoskeletal Musculoskeletal: Present: generalized weakness - Psychiatric Psychiatric: Present: A&O x's 3, appropriate affect - Labs CBC & Chem 7: 02/24/17 07:45 02/25/17 06:55 Labs: Abnormal Lab Results - Last 24 Hours (Table) 02/25/17 02/25/17 02/25/17 Range/Units 00:03 06:29 06:55 PT (9.0-12.0) sec INR (<1.2) Sodium 131 L (137-145) mmol/L Chloride 97 L (98-107) mmol/L Carbon Dioxide 31 H (22-30) mmol/L BUN 21 H (9-20) mg/dL Creatinine 0.57 L (0.66-1.25) mg/dL Glucose 105 H (74-99) mg/dL POC Glucose (mg/dL) 110 H 118 H (75-99) mg/dL Calcium 7.7 L (8.4-10.2) mg/dL 02/25/17 02/25/17 02/25/17 Range/Units 07:03 11:43 17:23 PT 15.5 H (9.0-12.0) sec INR 1.6 H (<1.2) Sodium (137-145) mmol/L Chloride (98-107) mmol/L Carbon Dioxide (22-30) mmol/L BUN (9-20) mg/dL Creatinine (0.66-1.25) mg/dL Glucose (74-99) mg/dL POC Glucose (mg/dL) 126 H 120 H (75-99) mg/dL Calcium (8.4-10.2) mg/dL Microbiology - Last 24 Hours (Table) 02/21/17 12:37 Blood Culture - Preliminary Blood No Growth after 96 hours Assessment and Plan (1) Sepsis Narrative/Plan: The patient is clinically improved from his sepsis due to pneumonia. Hemodynamics are her mostly in the normal range. Shortness of breath is significantly better. Cough with expectoration is also lessened, with sputum now mostly been clear. Continue antibiotics per ID. 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 His respiratory status had started to improve even prior to the IVIG infusions Given the symptomatic improvement, it is possible that the recurrent fever is not infectious, and may represent tumor fever or drug effect. Status: Acute (2) CLL (chronic lymphocytic leukemia) Narrative/Plan: The patient's WBC, and other blood counts remain stable. He would have been due for his second dose of bendamustine this week. I had a detailed discussion with him, his and [id number] regarding the treatment plan. Our plan is to resume treatment with bendamustine. However we have to wait for his infection to be adequately treated and for him to be cleared by ID before he receives chemotherapy to reduce risk of recurrent sepsis. Post discharge, the patient will follow up with Dr. Rucker to have his treatment scheduled. 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 Case was discussed with speech therapy. It was recommended that the patient proceed with speech therapy, as it is anticipated, and that this tumor will respond to the planned treatment . Per speech pathology, some improvement has been noted. Status: Acute
[2017-02-26 00:44] LABS: Glucose,Whole Blood 117 mg/dL (75-99)
[2017-02-26 05:49] LABS: Glucose,Whole Blood 118 mg/dL (75-99)
[2017-02-26] MEDS: LEVOTHYROXINE 125 MCG TAB PEG/G-TUBE SCH (05:57)
[2017-02-26] MEDS ORDERED: VANCOMYCIN TROUGH DUE 1 EACH MISC MISCELLANE ONE (07:00)
[2017-02-26] MEDS: valACYclovir 500 MG TAB PO SCH ×2 (07:55→21:47)
[2017-02-26] MEDS: SODIUM CHLORIDE TAB 1 GM TAB PO SCH (07:55)
[2017-02-26] MEDS: NYSTATIN 100,000 UNIT/ML SUSP 500,000 UNIT/5 ML CUP PO SCH ×4 (07:55→21:47)
[2017-02-26] MEDS: ENOXAPARIN 40 MG/0.4 ML SYRINGE SQ SCH (07:56)
[2017-02-26] MEDS: FUROSEMIDE 20 MG TAB PO SCH ×2 (07:56→14:13)
[2017-02-26] MEDS: VANCOMYCIN 1,750 MG in SODIUM CHLORIDE 0.9% 250 ML IVPB SCH ×2 (08:23→20:27)
[2017-02-26 08:37] LABS: Anisocytosis Slight; Aty Lym Flag Marked; CH 27.2; CHCM 30.2; HCT 28.7 % (39.0-53.0); HDW 3.08; HGB 8.8 gm/dL (13.0-17.5); Hypochromasia Marked; MCH 27.8 pg (25.0-35.0); MCHC 30.7 g/dL (31.0-37.0); MCV 90.3 fL (80.0-100.0); Mean Platelet Volume 8.8; RBC 3.18 m/uL (4.30-5.90); RDW 19.6 % (11.5-15.5); WBC 5.7 k/uL (3.8-10.6); WBC (Perox) 6.23
[2017-02-26 08:51] LABS: INR 1.7 (<1.2)
[2017-02-26 08:55] LABS: Anion Gap 2 mmol/L; Blood Urea Nitrogen 20 mg/dL (9-20); Calcium 7.9 mg/dL (8.4-10.2); Carbon Dioxide 32 mmol/L (22-30); Chloride 97 mmol/L (98-107); Glucose 111 mg/dL (74-99); Non-African American GFR(MDRD) >60 (>60 ml/min/1.73 sqM); Potassium 4.2 mmol/L (3.5-5.1); Sodium 131 mmol/L (137-145)
[2017-02-26] MEDS: IPRATROPIUM-ALBUTEROL 3 ML NEB INHALATION PRN ×2 (08:56→15:35)
[2017-02-26] MEDS: SYMBICORT 160-4.5 MCG INHALER INHALATION SCH ×2 (09:03→15:49)
[2017-02-26 11:01] LABS: Add Differential Manual Differential
[2017-02-26 11:04] LABS: Band Neutrophils % 1 %; Nucleated Red Blood Cells 0 /100 WBC (0-0); Total Cells Counted 100
[2017-02-26 11:06] LABS: Manual Review Performed
[2017-02-26] MEDS ORDERED: FUROSEMIDE 10 MG/ML 4 ML VIAL IV STA (11:06)
--- NOTE | 2017-02-26 11:09 | P.PN ---
Subjective Patient is seen in follow-up for hyponatremia. Sodium level is 131 today. He is currently maintained on tube feeds. Patient is not able to tolerate oral intake due to tumor infiltration and dysphagia. Hemodynamically he is stable. Admits to good urine output. He is currently being treated with broad-spectrum antibiotics for left lower lobe pneumonia. Sputum culture is positive for MRSA. He is noted to be febrile which has been attributed to CLL. Does have some lower extremity swelling. Vital signs are stable. General: The patient appeared well nourished and normally developed. HEENT: Head exam is unremarkable. Neck is without jugular venous distension. LUNGS: Lungs are clear to auscultation and percussion. Breath sounds decreased. HEART: Rate and Rhythm are regular. First and second heart sounds normal. No murmurs, rubs or gallops. ABDOMEN: Abdominal exam reveals normal bowel sounds. Non-tender and non- distended. No evidence of peritonitis. EXTREMITITES: 1+ edema. Objective - Vital Signs Vital signs: Vital Signs Temp 98.0 F 02/26/17 07:00 Pulse 94 02/26/17 09:09 Resp 18 02/26/17 08:00 BP 110/73 02/26/17 07:00 Pulse Ox 96 02/26/17 07:00 Intake & Output 02/25/17 02/26/17 02/26/17 18:59 06:59 18:59 Intake Total 905 970 520 Output Total 675 Balance 905 295 520 Weight 88.5 kg Intake: IV 390 Vancomycin 1,750 mg In 250 Sodium Chloride 0.9% 250 ml @ 125 mls/hr IVPB Q12H [facility] Rx#:[id number] normal saline @ 10ccx2 140 Tube Feeding 905 520 520 Other 60 Output: Urine 675 Other: Voiding Method Urinal Urinal Urinal # Voids 1 - Labs CBC & Chem 7: 02/26/17 07:53 02/26/17 07:53 Labs: Abnormal Lab Results - Last 24 Hours (Table) 02/25/17 02/25/17 02/26/17 Range/Units 11:43 17:23 00:43 RBC (4.30-5.90) m/uL Hgb (13.0-17.5) gm/dL Hct (39.0-53.0) % MCHC (31.0-37.0) g/dL RDW (11.5-15.5) % Plt Count (150-450) k/uL Neutrophils # (Manual) (1.3-7.7) k/uL PT (9.0-12.0) sec INR (<1.2) Sodium (137-145) mmol/L Chloride (98-107) mmol/L Carbon Dioxide (22-30) mmol/L Creatinine (0.66-1.25) mg/dL Glucose (74-99) mg/dL POC Glucose (mg/dL) 126 H 120 H 117 H (75-99) mg/dL Calcium (8.4-10.2) mg/dL 02/26/17 02/26/17 02/26/17 Range/Units 05:47 07:53 07:53 RBC (4.30-5.90) m/uL Hgb (13.0-17.5) gm/dL Hct (39.0-53.0) % MCHC (31.0-37.0) g/dL RDW (11.5-15.5) % Plt Count (150-450) k/uL Neutrophils # (Manual) (1.3-7.7) k/uL PT 16.0 H (9.0-12.0) sec INR 1.7 H (<1.2) Sodium 131 L (137-145) mmol/L Chloride 97 L (98-107) mmol/L Carbon Dioxide 32 H (22-30) mmol/L Creatinine 0.57 L (0.66-1.25) mg/dL Glucose 111 H (74-99) mg/dL POC Glucose (mg/dL) 118 H (75-99) mg/dL Calcium 7.9 L (8.4-10.2) mg/dL 02/26/17 Range/Units 07:53 RBC 3.18 L (4.30-5.90) m/uL Hgb 8.8 L (13.0-17.5) gm/dL Hct 28.7 L (39.0-53.0) % MCHC 30.7 L (31.0-37.0) g/dL RDW 19.6 H (11.5-15.5) % Plt Count 116 L (150-450) k/uL Neutrophils # (Manual) 1.00 L (1.3-7.7) k/uL PT (9.0-12.0) sec INR (<1.2) Sodium (137-145) mmol/L Chloride (98-107) mmol/L Carbon Dioxide (22-30) mmol/L Creatinine (0.66-1.25) mg/dL Glucose (74-99) mg/dL POC Glucose (mg/dL) (75-99) mg/dL Calcium (8.4-10.2) mg/dL Microbiology - Last 24 Hours (Table) 02/21/17 12:37 Blood Culture - Preliminary Blood No Growth after 96 hours Assessment and Plan Plan: Assessment: #1. Hyponatremia. It appears patient was slightly hypovolemic initially as he wasn't receiving his tube feeds and was also a little hypotensive. Now appears euvolemic. Most recent sodium 131 this morning. 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 High urine sodium, high urine osmolality and low uric acid also suggestive of SIADH. #2. History of dysphagia status post PEG tube placement maintained on tube feeds. #3. Pneumonia maintained on antibiotics. Infectious disease following. #4. Hypokalemia related to his nutritional status and diuretics. Magnesium a little on the lower side. Improved. #5. CLL, oncology following. Plan: Discontinued normal saline. Maintain tube feeds. Continue Lasix to 20 mg twice daily. Additional 40 mg IV Lasix once today. Decrease salt tabs to 1 g once daily. Further decreased free water to 30 mL every 6 hours. Repeat electrolytes in the morning.
[2017-02-26 11:26] LABS: Glucose,Whole Blood 121 mg/dL (75-99)
--- NOTE | 2017-02-26 12:09 | P.PN ---
Subjective Principal diagnosis: Patient resting comfortably in bed without complaint this morning. Patient appears stronger. No fever for 36 hours. Awaiting plan from infectious disease regarding discharge Objective - Vital Signs Vital signs: Vital Signs Temp 98.0 F 02/26/17 07:00 Pulse 94 02/26/17 09:09 Resp 18 02/26/17 08:00 BP 110/73 02/26/17 07:00 Pulse Ox 96 02/26/17 07:00 Intake & Output 02/25/17 02/26/17 02/26/17 18:59 06:59 18:59 Intake Total 905 970 520 Output Total 675 Balance 905 295 520 Weight 88.5 kg Intake: IV 390 Vancomycin 1,750 mg In 250 Sodium Chloride 0.9% 250 ml @ 125 mls/hr IVPB Q12H [facility] Rx#:[id number] normal saline @ 10ccx2 140 Tube Feeding 905 520 520 Other 60 Output: Urine 675 Other: Voiding Method Urinal Urinal Urinal # Voids 1 - Constitutional General appearance: Present: mild distress - EENT Eyes: Present: PERRLA ENT: Present: hard of hearing Ears: bilateral: normal - Neck Neck: Present: normal ROM - Respiratory Respiratory: bilateral: diminished - Cardiovascular Rhythm: regularly irregular - Gastrointestinal Gastrointestinal Comment(s): Gastric feeding tube in place General gastrointestinal: Present: soft - Integumentary Integumentary: Present: normal - Neurologic Neurologic Comment(s): Left-sided facial of weakness secondary to Fletcher's palsy - Musculoskeletal Musculoskeletal: Present: generalized weakness - Psychiatric Psychiatric: Present: A&O x's 3, appropriate affect, intact judgment & insight - Labs CBC & Chem 7: 02/26/17 07:53 02/26/17 07:53 Labs: Abnormal Lab Results - Last 24 Hours (Table) 02/25/17 02/26/17 02/26/17 Range/Units 17:23 00:43 05:47 RBC (4.30-5.90) m/uL Hgb (13.0-17.5) gm/dL Hct (39.0-53.0) % MCHC (31.0-37.0) g/dL RDW (11.5-15.5) % Plt Count (150-450) k/uL Neutrophils # (Manual) (1.3-7.7) k/uL PT (9.0-12.0) sec INR (<1.2) Sodium (137-145) mmol/L Chloride (98-107) mmol/L Carbon Dioxide (22-30) mmol/L Creatinine (0.66-1.25) mg/dL Glucose (74-99) mg/dL POC Glucose (mg/dL) 120 H 117 H 118 H (75-99) mg/dL Calcium (8.4-10.2) mg/dL 02/26/17 02/26/17 02/26/17 Range/Units 07:53 07:53 07:53 RBC 3.18 L (4.30-5.90) m/uL Hgb 8.8 L (13.0-17.5) gm/dL Hct 28.7 L (39.0-53.0) % MCHC 30.7 L (31.0-37.0) g/dL RDW 19.6 H (11.5-15.5) % Plt Count 116 L (150-450) k/uL Neutrophils # (Manual) 1.00 L (1.3-7.7) k/uL PT 16.0 H (9.0-12.0) sec INR 1.7 H (<1.2) Sodium 131 L (137-145) mmol/L Chloride 97 L (98-107) mmol/L Carbon Dioxide 32 H (22-30) mmol/L Creatinine 0.57 L (0.66-1.25) mg/dL Glucose 111 H (74-99) mg/dL POC Glucose (mg/dL) (75-99) mg/dL Calcium 7.9 L (8.4-10.2) mg/dL 02/26/17 Range/Units 11:21 RBC (4.30-5.90) m/uL Hgb (13.0-17.5) gm/dL Hct (39.0-53.0) % MCHC (31.0-37.0) g/dL RDW (11.5-15.5) % Plt Count (150-450) k/uL Neutrophils # (Manual) (1.3-7.7) k/uL PT (9.0-12.0) sec INR (<1.2) Sodium (137-145) mmol/L Chloride (98-107) mmol/L Carbon Dioxide (22-30) mmol/L Creatinine (0.66-1.25) mg/dL Glucose (74-99) mg/dL POC Glucose (mg/dL) 121 H (75-99) mg/dL Calcium (8.4-10.2) mg/dL Microbiology - Last 24 Hours (Table) 02/21/17 12:37 Blood Culture - Preliminary Blood No Growth after 96 hours Assessment and Plan Plan: Assessment Improving left lower lobe pneumonia Episodic fever no fever for 36 hours Chronic leukocytic leukemia COPD Hypogammaglobulinemia secondary to CLL Fletcher's palsy left-sided weakness Herpes zoster improving Paroxysmal atrial fibrillation Hypothyroidism Dysphagia with PEG tube in place for nutritional support Impaired hearing Chronic normocytic anemia Hyponatremia Syncope/altered mental status secondary to hypotensive event Plan Continue consultation with gastroenterology pulmonology infectious disease cardiology and nephrology He continues on vancomycin hopeful discharge soon
[2017-02-26] MEDS: MULTIVITAMINS, THERA 1 EACH TAB PEG/G-TUBE SCH (12:48)
[2017-02-26] MEDS: DILTIAZEM ORAL 30 MG TAB PO SCH ×4 (12:49→21:47)
--- NOTE | 2017-02-26 16:51 | P.PN ---
Subjective 76-year-old male patient is very well-known to me. Unfortunately patient had a prolonged and complicated course of CLL. Note that the patient was in a good state of health until approximately 3 months ago when he started having infectious complications. 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 Note that he was transferred to 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 As such the patient has a PEG tube for enteral feeding and nutritional support and his periodically being evaluated by the swallow pathologist for his ability to eat orally. Currently is on enteral feeding via a PEG tube. Is also known to have COPD, hypothyroidism, atrial fibrillation as comorbid conditions This patient was recently in the hospital. He was treated and he was discharged to go home where he was being taken care of by his . The patient came into the hospital because of syncopal episodes probably related to dehydration and orthostasis. At the same time he was hyponatremic and the possibility of left lower lobe pneumonia was also entertained 9 that there was a new consolidation of the left lung base. His sputum showed MRSA and make and the patient was started on vancomycin. He is also meropenem. He is currently receiving antibiotics without any major complications or side effects. He still has a congested cough unable to bring up much of sputum. He does have a decent coughing reflex. No respiratory distress. No hemoptysis no pleurisy. No chest pain. No altered mentation. On and off is still having fever the most recent of which was yesterday for which the patient was given IV Tylenol.. He is being followed up by infectious disease. He is also on long-term anticoagulation with warfarin regarding his atrial fibrillation. INR is subtherapeutic at this point. On 02/24/2017 the patient seen in follow-up for left lower lobe pneumonia, sputum positive for MRSA, Fletcher's palsy, difficulty swallowing, episodic fever secondary to CLL, and hyponatremia. Patient's spouse as it is at the bedside. Patient has been participating with the physical therapy, ambulating in hallway. Patient and the spouse both verbalize improvement in overall clinical status. Patient denies any specific restrictive complaints, maintains oxygen saturations in the 93-94% range on 4 L per nasal cannula. Speech therapist is on consult and will reevaluate the swallowing ability today. Patient will call will continue with tube feedings via the PEG tube, states she tolerates it well. Continues with intermittent febrile episodes, treated with acetaminophen. Lung sounds-a few scattered rales at the bases of the lungs. Nephrology increased Lasix to twice a day yesterday, improvement in the bilateral lower extremity edema has been noted. Today's serum sodium is 131 and it is improved from 128 on 02/23/2017. On 02/25/2017 I see this patient quite awake and alert and he is interactive. He is not having any major stroke difficulties. He is coughing up mucus. He has MRSA in the sputum and MRSA pneumonia suspected and patient is currently on IV vancomycin. A total duration of antibiotics is not determined although I suspect the patient will need somewhere between 10-14 days. No fever. No chills. PEG tube site is clean. The patient is still receiving enteral feeding for nutritional support. The patient is using the appropriate hearing aids and he is able to communicate better. No significant weakness at this point as the patient is doing daily walking. No fever. No chills. The patient is on long-term anticoagulation regarding his atrial fibrillation and INR from today subtherapeutic and further adjustments will be done accordingly. 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 On the patient is doing well and has no specific complaints. He continues to improve. No fever. No chills. Receiving enteral feeding for nutritional support. No reported aspiration. He feels stronger. ID is on the case and in the process of discharging this patient. Objective - Vital Signs Vital signs: Vital Signs Temp 98.8 F 02/26/17 15:59 Pulse 92 02/26/17 15:48 Resp 18 02/26/17 15:00 BP 110/56 02/26/17 15:00 Pulse Ox 94 L 02/26/17 15:00 Intake & Output 02/25/17 02/26/17 02/26/17 18:59 06:59 18:59 Intake Total 905 970 840 Output Total 675 400 Balance 905 295 440 Weight 88.5 kg 88.5 kg Intake: IV 390 Vancomycin 1,750 mg In 250 Sodium Chloride 0.9% 250 ml @ 125 mls/hr IVPB Q12H [facility] Rx#:[id number] normal saline @ 10ccx2 140 Tube Feeding 905 520 840 Other 60 Output: Urine 675 400 Other: Voiding Method Urinal Urinal Urinal # Voids 1 1 - Exam Head exam was generally normal. There was no scleral icterus or corneal arcus. Mucous membranes were moist. The patient has an obvious facial asymmetry with a left facial droop related to his Fletcher's palsy.Neck was supple and without jugular venous distension, thyromegaly, or carotid bruits. Carotids were easily palpable bilaterally. There was no adenopathy. Lung sounds are diminished in lung bases bilaterally. Few scattered expiratory wheezes. Crackles in lung bases more so on the left.Cardiac exam revealed the PMI to be normally situated and sized. The rhythm was regular and no extrasystoles were noted during several minutes of auscultation. The first and second heart sounds were normal and physiologic splitting of the second heart sound was noted. There were no murmurs, rubs, clicks, or gallops.Abdominal exam revealed normal bowel sounds. The abdomen was soft, non-tender, and without masses, organomegaly, or appreciable enlargement of the abdominal aorta. The PEG tube site is dry clean and intact. No direct tenderness no rebound tenderness. No guarding. Bowel sounds are hypoactive at the present.Examination of the extremities revealed easily palpable radial, femoral and pedal pulses. There was no cyanosis, clubbing or edema. Neurologically the patient has impaired hearing and the patient has an obvious facial palsy involving the left face. Motor function the left upper and left lower oximetry is within normal limits. In fact motor function is symmetric in all 4 extremities. Coughing reflexes present. Swallow reflex is poor. Skeletal exam is within normal limits without any deformities or fractures. Skin exam is within normal without any active rash or skin eruption. - Labs CBC & Chem 7: 02/26/17 07:53 02/26/17 07:53 Labs: Abnormal Lab Results - Last 24 Hours (Table) 02/25/17 02/26/17 02/26/17 Range/Units 17:23 00:43 05:47 RBC (4.30-5.90) m/uL Hgb (13.0-17.5) gm/dL Hct (39.0-53.0) % MCHC (31.0-37.0) g/dL RDW (11.5-15.5) % Plt Count (150-450) k/uL Neutrophils # (Manual) (1.3-7.7) k/uL PT (9.0-12.0) sec INR (<1.2) Sodium (137-145) mmol/L Chloride (98-107) mmol/L Carbon Dioxide (22-30) mmol/L Creatinine (0.66-1.25) mg/dL Glucose (74-99) mg/dL POC Glucose (mg/dL) 120 H 117 H 118 H (75-99) mg/dL Calcium (8.4-10.2) mg/dL 02/26/17 02/26/17 02/26/17 Range/Units 07:53 07:53 07:53 RBC 3.18 L (4.30-5.90) m/uL Hgb 8.8 L (13.0-17.5) gm/dL Hct 28.7 L (39.0-53.0) % MCHC 30.7 L (31.0-37.0) g/dL RDW 19.6 H (11.5-15.5) % Plt Count 116 L (150-450) k/uL Neutrophils # (Manual) 1.00 L (1.3-7.7) k/uL PT 16.0 H (9.0-12.0) sec INR 1.7 H (<1.2) Sodium 131 L (137-145) mmol/L Chloride 97 L (98-107) mmol/L Carbon Dioxide 32 H (22-30) mmol/L Creatinine 0.57 L (0.66-1.25) mg/dL Glucose 111 H (74-99) mg/dL POC Glucose (mg/dL) (75-99) mg/dL Calcium 7.9 L (8.4-10.2) mg/dL 02/26/17 Range/Units 11:21 RBC (4.30-5.90) m/uL Hgb (13.0-17.5) gm/dL Hct (39.0-53.0) % MCHC (31.0-37.0) g/dL RDW (11.5-15.5) % Plt Count (150-450) k/uL Neutrophils # (Manual) (1.3-7.7) k/uL PT (9.0-12.0) sec INR (<1.2) Sodium (137-145) mmol/L Chloride (98-107) mmol/L Carbon Dioxide (22-30) mmol/L Creatinine (0.66-1.25) mg/dL Glucose (74-99) mg/dL POC Glucose (mg/dL) 121 H (75-99) mg/dL Calcium (8.4-10.2) mg/dL Microbiology - Last 24 Hours (Table) 02/21/17 12:37 Blood Culture - Preliminary Blood No Growth after 120 hours Assessment and Plan Plan: Assessment 1 suspected left lower lobe pneumonia. The patient has a sputum that's positive for MRSA. Clinically improved significantly with antibiotic treatment and the patient has been complaining course of vancomycin per IDs recommendation. 2 episodic fever. Rule out infectious. 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 Choice of antibiotics and duration of antibiotics per ID. Clear for discharge from my standpoint.
[2017-02-26] MEDS ORDERED: WARFARIN 3 MG TAB PO ONE (18:00)
[2017-02-26 18:10] LABS: Glucose,Whole Blood 118 mg/dL (75-99)
--- NOTE | 2017-02-26 21:07 | P.PN ---
Subjective Principal diagnosis: sepsis 76-year-old male with a known history of chronic lymphocytic leukemia with not been any therapy up to this December. However that point in time he presented to Hospital feeling poorly. Had severe sore throat difficulty with chewing and swallowing. He was not feeling well. He was hospitalized at that time and treated with antibiotic therapy with concerns to pneumonia and high- grade fever. He also developed an extensive skin rash. Testing at our facility did confirm varicella-zoster which he had treatment for from beginning of his stay in December. Because of his ongoing difficulties with swallowing he was transferred to his oncologist at [facility]. 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 And he was initiated to Rituxan therapy. 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 At this time the patient is still somewhat miserable. He is unaware of the events that occurred that led him to the hospital. He apparently was unconscious when the found him and she was concerned that there was seizure. He constantly was brought to Hospital by EMS. At this time he is sitting up right somewhat comfortable. He is oriented and able to converse although he is quite hard of hearing He was having significant pains earlier and is now more comfortable. His significant abdominal discomforts have improved. He does cough and has had fever does not relate to significant sputum production or hemoptysis. temperature of 100.1 and overall is improved but stll weak. is very anxious to continue chemotherapy. The patient and that with the oncologist this morning. Once the patient is cleared from infection he will then be able to proceed with his next course of chemotherapy. The leg is extremely anxious that his day is coming up in a couple of days. She would like him to stay on track. The oncologist discussed that he needs to be free of infection before his next course of chemotherapy. 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 Objective - Vital Signs Vital signs: Vital Signs Temp 98.8 F 02/26/17 15:59 Pulse 89 02/26/17 16:00 Resp 18 02/26/17 16:00 BP 110/56 02/26/17 15:00 Pulse Ox 94 L 02/26/17 15:00 Intake & Output 09/21/17 09/21/17 09/22/17 06:59 18:59 06:59 Intake Total 970 905 Output Total 675 1600 Balance 295 -695 Weight 88.5 kg 88.5 kg Intake: IV 390 Vancomycin 1,750 mg In 250 Sodium Chloride 0.9% 250 ml @ 125 mls/hr IVPB Q[facility]H [facility] Rx#:[id number] normal saline @ 10ccx2 140 Oral 0 Tube Feeding 520 905 Other 60 Output: Urine 675 1600 Other: Voiding Method Urinal Urinal # Voids 1 - Exam 76-year-old male who appears older than his stated age. He is weak and ill in appearance relates he has less pain when he tries to swallow was seen by speech pathology and they're starting to improve his swallow mechanisms by training with ice cubes. HEENT: Anicteric conjunctiva are pink and moist nasal mucosa grossly intact without significant lesions, there is no thrush. Is noted he had extensive thrush that is now resolved just has some dry oral cavity evidence of new HSV lesions left posterior pharynx, improving today Neck: The neck is supple without significant lymphadenopathy or thyromegaly. Lungs: Good bilateral air entry there is evidence of crackles at the left base otherwise the chest is quite clear Heart: Regular rate and rhythm with an audible S1-S2, no S3 no S4. There is no significant murmur click or rub, PMI was nondisplaced. Abdomen: Positive bowel sounds soft and nontender without palpable masses or organomegaly. There was no guarding or rebound. PEG tube site is intact Extremities: The upper extremities have excellent pulses they are symmetric, no significant petechiae or telangiectasia. No splinter hemorrhages were noted. The lower extremities are free from significant edema. The peripheral pulses were 2+ and symmetric. Neuro: Awake alert oriented to person and place. Does not exhibit acute gross focal sensory motor deficits at this time - Labs CBC & Chem 7: 02/26/17 07:53 02/26/17 07:53 Labs: Abnormal Lab Results - Last 24 Hours (Table) 02/26/17 02/26/17 02/26/17 Range/Units 00:43 05:47 07:53 RBC (4.30-5.90) m/uL Hgb (13.0-17.5) gm/dL Hct (39.0-53.0) % MCHC (31.0-37.0) g/dL RDW (11.5-15.5) % Plt Count (150-450) k/uL Neutrophils # (Manual) (1.3-7.7) k/uL PT 16.0 H (9.0-12.0) sec INR 1.7 H (<1.2) Sodium (137-145) mmol/L Chloride (98-107) mmol/L Carbon Dioxide (22-30) mmol/L Creatinine (0.66-1.25) mg/dL Glucose (74-99) mg/dL POC Glucose (mg/dL) 117 H 118 H (75-99) mg/dL Calcium (8.4-10.2) mg/dL 02/26/17 02/26/17 02/26/17 Range/Units 07:53 07:53 11:21 RBC 3.18 L (4.30-5.90) m/uL Hgb 8.8 L (13.0-17.5) gm/dL Hct 28.7 L (39.0-53.0) % MCHC 30.7 L (31.0-37.0) g/dL RDW 19.6 H (11.5-15.5) % Plt Count 116 L (150-450) k/uL Neutrophils # (Manual) 1.00 L (1.3-7.7) k/uL PT (9.0-12.0) sec INR (<1.2) Sodium 131 L (137-145) mmol/L Chloride 97 L (98-107) mmol/L Carbon Dioxide 32 H (22-30) mmol/L Creatinine 0.57 L (0.66-1.25) mg/dL Glucose 111 H (74-99) mg/dL POC Glucose (mg/dL) 121 H (75-99) mg/dL Calcium 7.9 L (8.4-10.2) mg/dL 02/26/17 Range/Units 18:08 RBC (4.30-5.90) m/uL Hgb (13.0-17.5) gm/dL Hct (39.0-53.0) % MCHC (31.0-37.0) g/dL RDW (11.5-15.5) % Plt Count (150-450) k/uL Neutrophils # (Manual) (1.3-7.7) k/uL PT (9.0-12.0) sec INR (<1.2) Sodium (137-145) mmol/L Chloride (98-107) mmol/L Carbon Dioxide (22-30) mmol/L Creatinine (0.66-1.25) mg/dL Glucose (74-99) mg/dL POC Glucose (mg/dL) 118 H (75-99) mg/dL Calcium (8.4-10.2) mg/dL Microbiology - Last 24 Hours (Table) 02/21/17 12:37 Blood Culture - Preliminary Blood No Growth after 120 hours Laboratory Results WBC 5.7 k/uL (3.8-10.6) 02/26/17 07:53 RBC 3.18 m/uL (4.30-5.90) L 02/26/17 07:53 Hgb 8.8 gm/dL (13.0-17.5) L 02/26/17 07:53 Hct 28.7 % (39.0-53.0) L 02/26/17 07:53 MCV 90.3 fL (80.0-100.0) 02/26/17 07:53 MCH 27.8 pg (25.0-35.0) 02/26/17 07:53 MCHC 30.7 g/dL (31.0-37.0) L 02/26/17 07:53 RDW 19.6 % (11.5-15.5) H 02/26/17 07:53 Plt Count 116 k/uL (150-450) L 02/26/17 07:53 Neutrophils % (Manual) 18 % 02/26/17 07:53 Band Neutrophils % 1 % 02/26/17 07:53 Lymphocytes % (Manual) 73 % 02/26/17 07:53 Monocytes % (Manual) 6 % 02/26/17 07:53 Eosinophils % (Manual) 2 % 02/26/17 07:53 Neutrophils # (Manual) 1.00 k/uL (1.3-7.7) L 02/26/17 07:53 Lymphocytes # (Manual) 4.16 k/uL (1.0-4.8) 02/26/17 07:53 Monocytes # (Manual) 0.34 k/uL (0-1.0) 02/26/17 07:53 Eosinophils # (Manual) 0.11 k/uL (0-0.7) 02/26/17 07:53 Nucleated RBCs 0 /100 WBC (0-0) 02/26/17 07:53 Manual Slide Review Performed 02/26/17 07:53 Polychromasia Present 02/23/17 13:25 Hypochromasia Marked 02/26/17 07:53 Poikilocytosis (manual Present 02/26/17 07:53 Anisocytosis Slight 02/26/17 07:53 Macrocytosis Slight 02/19/17 07:36 Ovalocytes Present 02/24/17 07:45 PT 16.0 sec (9.0-12.0) H 02/26/17 07:53 INR 1.7 (<1.2) H 02/26/17 07:53 APTT 27.6 sec (22.0-30.0) 02/17/17 07:50 Sodium 131 mmol/L (137-145) L 02/26/17 07:53 Potassium 4.2 mmol/L (3.5-5.1) 02/26/17 07:53 Chloride 97 mmol/L (98-107) L 02/26/17 07:53 Carbon Dioxide 32 mmol/L (22-30) H 02/26/17 07:53 Anion Gap 2 mmol/L 02/26/17 07:53 BUN 20 mg/dL (9-20) 02/26/17 07:53 Creatinine 0.57 mg/dL (0.66-1.25) L 02/26/17 07:53 Est GFR (MDRD) Af Amer >60 (>60 ml/min/1.73 sqM) 02/26/17 07:53 Est GFR (MDRD) Non-Af >60 (>60 ml/min/1.73 sqM) 02/26/17 07:53 Glucose 111 mg/dL (74-99) H 02/26/17 07:53 POC Glucose (mg/dL) 118 mg/dL (75-99) H 02/26/17 18:08 POC Glu Home Supervisor ID Gita Evans 02/26/17 18:08 Osmolality 274 mosm/kg (280-301) L 02/18/17 07:26 Plasma Lactic Acid Jason 1.2 mmol/L (0.7-2.0) 02/17/17 07:50 Uric Acid 2.0 mg/dL (3.5-8.5) L 02/19/17 07:36 Calcium 7.9 mg/dL (8.4-10.2) L 02/26/17 07:53 Phosphorus 2.9 mg/dL (2.5-4.5) 02/17/17 07:50 Magnesium 1.8 mg/dL (1.6-2.3) 02/25/17 06:55 Total Bilirubin 0.5 mg/dL (0.2-1.3) 02/18/17 07:26 AST 29 U/L (17-59) 02/18/17 07:26 ALT 43 U/L (21-72) 02/18/17 07:26 Alkaline Phosphatase 52 U/L (38-126) 02/18/17 07:26 Total Creatine Kinase <20 U/L (55-170) L 02/17/17 07:50 CK-MB (CK-2) 0.3 ng/mL (0.0-2.4) 02/17/17 07:50 CK-MB (CK-2) Rel Index 02/17/17 07:50 Troponin I <0.012 ng/mL (0.000-0.034) 02/18/17 12:52 Total Protein 4.1 g/dL (6.3-8.2) L 02/18/17 07:26 Albumin 2.4 g/dL (3.5-5.0) L 02/18/17 07:26 TSH 5.540 mIU/L (0.465-4.680) H 02/19/17 07:36 Free T4 1.20 ng/dL (0.78-2.19) 02/19/17 07:36 Cortisol 18 ug/dL 02/19/17 07:36 Urine Color Yellow 02/17/17 07:50 Urine Appearance Clear (Clear) 02/17/17 07:50 Urine pH 8.0 (5.0-8.0) 02/17/17 07:50 Ur Specific [place] 1.010 (1.001-1.035) 02/17/17 07:50 Urine Protein Trace (Negative) H 02/17/17 07:50 Urine Glucose (UA) Negative (Negative) 02/17/17 07:50 Urine Ketones Negative (Negative) 02/17/17 07:50 Urine Blood Negative (Negative) 02/17/17 07:50 Urine Nitrite Negative (Negative) 02/17/17 07:50 Urine Bilirubin Negative (Negative) 02/17/17 07:50 Urine Urobilinogen <2.0 mg/dL (<2.0) 02/17/17 07:50 Ur Leukocyte Esterase Negative (Negative) 02/17/17 07:50 Urine Osmolality 793 mosm/kg (50-1400) 02/18/17 06:48 Ur Random Creatinine 63.8 mg/dL 02/17/17 07:50 Ur Random Sodium 141 mmol/L (30-90) H 02/18/17 06:48 Ur Random Potassium 43.7 mmol/L 02/17/17 07:50 Ur Random Urea Nitrogn 433.0 mg/dL 02/17/17 07:50 Ur Random Calcium 6.6 mg/dL 02/17/17 07:50 Stool Occult Blood Negative (Negative) 02/24/17 10:50 Vancomycin Trough 18.8 ug/mL 02/26/17 07:53 IgG 226.0 mg/dL (700.0-1600.0) L 02/20/17 07:17 IgA <25.5 mg/dL (60.0-350.0) L 02/20/17 07:17 IgM <16.9 mg/dL (40.0-280.0) L 02/20/17 07:17 Microbiology 02/21/17 12:37 Blood Blood Culture - Preliminary No Growth after 120 hours 02/17/17 14:53 Blood Blood Culture - Final No Growth after 144 hours 02/17/17 14:36 Blood Blood Culture - Final No Growth after 144 hours 02/17/17 07:50 Blood Blood Culture - Final No Growth after 144 hours 02/17/17 22:35 Sputum Gram Stain - Final 02/17/17 22:35 Sputum Sputum Culture - Final Methicillin resist S. aureus 02/17/17 07:50 Urine,Voided Urine Culture - Final 02/17/17 12:02 Sputum Gram Stain - Final 02/17/17 12:02 Sputum Sputum Culture - Final Assessment and Plan (1) Febrile illness, acute Status: Acute (2) Left lower lobe pneumonia Narrative/Plan: 76-year-old male noted infectious disease service for his 2 recent admissions. During the summer he had significant difficulties with the onset difficulty with swallowing and fevers and varicella-zoster. At that time there was concerns that his malignancy had changed. 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 He received Rituxan therapy. Was also noted to have hypogammaglobulinemia and he received IgG therapy. If not clear when his last IgG therapy was given. We have a more recent IgG level that appears to be low at just over 400. Oncology is following and will help determine the need for immunoglobulin replacement therapy at this time. Recent cultures are reviewed and there was evidence of Enterobacter and MRSA in his sputum. sputum revealed only MRSA and will be able to discontinue the Merrem overall improved but low grade temp today. Fortunately blood cultures are negative so far. His discomforts are improving. Nutrition is being given through his tube. His recent varicella-zoster is completely resolved. He is being followed by oncology and until he is well cannot receive further chemotherapy On the he did receive his dose of intravenous immunoglobulin. He hopefully will continue to show ongoing improvement. Fevers have improved . Patient seems to be showing some improvement. Continue current antibiotic therapy. Meropenem was discontinued . As noted the oral cavity exam shows evidence of some herpetic lesions in the posterior pharynx. These may be giving him some of his discomforts. The possibility there may also be causing some of his fever is concerned and Valtrex was started via his PEG tube. Follow up blood cultures requested today the infiltrate on the chest x-ray is markedly improved. If he remains afebrile may complete his vancomycin therapy in 3 days. Hopefully the infection resolves and performance status are high enough for him to proceed. Status: Acute (3) Small B-cell lymphoma Status: Acute
[2017-02-26] MEDS: LORazepam 1 MG TAB PO PRN (21:47)
[2017-02-27 01:03] LABS: Glucose,Whole Blood 140 mg/dL (75-99)
[2017-02-27] MEDS: LEVOTHYROXINE 125 MCG TAB PEG/G-TUBE SCH (06:06)
[2017-02-27 06:07] LABS: Glucose,Whole Blood 119 mg/dL (75-99)
[2017-02-27] MEDS: VANCOMYCIN 1,750 MG in SODIUM CHLORIDE 0.9% 250 ML IVPB SCH ×2 (07:44→19:28)
[2017-02-27] MEDS ORDERED: FUROSEMIDE 10 MG/ML 4 ML VIAL IV STA (07:47)
[2017-02-27] MEDS: FUROSEMIDE 20 MG TAB PO SCH ×3 (07:49→17:50)
[2017-02-27] MEDS: DILTIAZEM ORAL 30 MG TAB PO SCH ×4 (07:49→20:38)
[2017-02-27] MEDS: ENOXAPARIN 40 MG/0.4 ML SYRINGE SQ SCH (07:50)
[2017-02-27] MEDS: NYSTATIN 100,000 UNIT/ML SUSP 500,000 UNIT/5 ML CUP PO SCH ×4 (07:50→20:37)
--- NOTE | 2017-02-27 07:51 | P.PN ---
Subjective Patient is seen in follow-up for hyponatremia. Sodium level is 131 as of yesterday. He is currently maintained on tube feeds. Patient is not able to tolerate oral intake due to tumor infiltration and dysphagia. Hemodynamically he is stable. Admits to good urine output. He is currently being treated with broad-spectrum antibiotics for left lower lobe pneumonia. Sputum culture is positive for MRSA. He is noted to be febrile which has been attributed to CLL. Does have some lower extremity swelling and he did receive an additional dose of Lasix 40 mg IV yesterday. Dose of salt tabs is also being weaned. Vital signs are stable. General: The patient appeared well nourished and normally developed. HEENT: Head exam is unremarkable. Neck is without jugular venous distension. LUNGS: Lungs are clear to auscultation and percussion. Breath sounds decreased. HEART: Rate and Rhythm are regular. First and second heart sounds normal. No murmurs, rubs or gallops. ABDOMEN: Abdominal exam reveals normal bowel sounds. Non-tender and non- distended. No evidence of peritonitis. EXTREMITITES: 1+ edema. Objective - Vital Signs Vital signs: Vital Signs Temp 98.6 F 02/27/17 07:07 Pulse 91 02/27/17 07:07 Resp 14 02/27/17 07:07 BP 97/52 02/27/17 07:07 Pulse Ox 95 02/27/17 07:07 Intake & Output 02/26/17 02/27/17 02/27/17 18:59 06:59 18:59 Intake Total 905 610 Output Total 1600 Balance -695 610 Weight 88.5 kg 88 kg Intake: Oral 0 Tube Feeding 905 610 Output: Urine 1600 Other: Voiding Method Urinal Urinal # Voids 1 3 - Labs CBC & Chem 7: 02/26/17 07:53 02/26/17 07:53 Labs: Abnormal Lab Results - Last 24 Hours (Table) 02/26/17 02/26/17 02/26/17 Range/Units 07:53 07:53 07:53 RBC 3.18 L (4.30-5.90) m/uL Hgb 8.8 L (13.0-17.5) gm/dL Hct 28.7 L (39.0-53.0) % MCHC 30.7 L (31.0-37.0) g/dL RDW 19.6 H (11.5-15.5) % Plt Count 116 L (150-450) k/uL Neutrophils # (Manual) 1.00 L (1.3-7.7) k/uL PT 16.0 H (9.0-12.0) sec INR 1.7 H (<1.2) Sodium 131 L (137-145) mmol/L Chloride 97 L (98-107) mmol/L Carbon Dioxide 32 H (22-30) mmol/L Creatinine 0.57 L (0.66-1.25) mg/dL Glucose 111 H (74-99) mg/dL POC Glucose (mg/dL) (75-99) mg/dL Calcium 7.9 L (8.4-10.2) mg/dL 02/26/17 02/26/17 02/27/17 Range/Units 11:21 18:08 00:56 RBC (4.30-5.90) m/uL Hgb (13.0-17.5) gm/dL Hct (39.0-53.0) % MCHC (31.0-37.0) g/dL RDW (11.5-15.5) % Plt Count (150-450) k/uL Neutrophils # (Manual) (1.3-7.7) k/uL PT (9.0-12.0) sec INR (<1.2) Sodium (137-145) mmol/L Chloride (98-107) mmol/L Carbon Dioxide (22-30) mmol/L Creatinine (0.66-1.25) mg/dL Glucose (74-99) mg/dL POC Glucose (mg/dL) 121 H 118 H 140 H (75-99) mg/dL Calcium (8.4-10.2) mg/dL 02/27/17 Range/Units 06:05 RBC (4.30-5.90) m/uL Hgb (13.0-17.5) gm/dL Hct (39.0-53.0) % MCHC (31.0-37.0) g/dL RDW (11.5-15.5) % Plt Count (150-450) k/uL Neutrophils # (Manual) (1.3-7.7) k/uL PT (9.0-12.0) sec INR (<1.2) Sodium (137-145) mmol/L Chloride (98-107) mmol/L Carbon Dioxide (22-30) mmol/L Creatinine (0.66-1.25) mg/dL Glucose (74-99) mg/dL POC Glucose (mg/dL) 119 H (75-99) mg/dL Calcium (8.4-10.2) mg/dL Microbiology - Last 24 Hours (Table) 02/25/17 22:30 Blood Culture - Preliminary Blood No Growth after 24 hours 02/25/17 22:10 Blood Culture - Preliminary Blood No Growth after 24 hours 02/21/17 12:37 Blood Culture - Preliminary Blood No Growth after 120 hours Assessment and Plan Plan: Assessment: #1. Hyponatremia. Most recent sodium 131 from yesterday. Patient was euvolemic due to SIADH from the pneumonia/malignancy. High urine sodium, high urine osmolality and low uric acid also suggestive of SIADH. However now he appears hypervolemic with lower extremity edema noted. #2. History of dysphagia status post PEG tube placement maintained on tube feeds. #3. Pneumonia maintained on antibiotics. Infectious disease following. #4. Hypokalemia related to his nutritional status and diuretics. Magnesium a little on the lower side. Improved. #5. CLL, oncology following. Plan: Discontinued normal saline. Maintain tube feeds. Continue Lasix to 20 mg twice daily. Additional 40 mg IV Lasix once today. Discontinue salt tabs. Further decreased free water to 30 mL every 6 hours. Patient will need to get a repeat basic metabolic panel checked within 2-3 days of discharge to make sure electrolytes are stable and follow-up as an outpatient in the next 1-2 weeks.
[2017-02-27] MEDS: valACYclovir HCL 1,000 MG TABLET PO SCH ×2 (07:55→20:38)
[2017-02-27] MEDS ORDERED: SODIUM CHLORIDE TAB 1 GM TAB PO SCH (09:00)
[2017-02-27 09:27] LABS: INR 1.7 (<1.2); Prothrombin Time 16.9 sec (9.0-12.0)
[2017-02-27 09:56] LABS: Anion Gap 2 mmol/L; Blood Urea Nitrogen 22 mg/dL (9-20); Calcium 7.9 mg/dL (8.4-10.2); Carbon Dioxide 33 mmol/L (22-30); Chloride 95 mmol/L (98-107); Glucose 106 mg/dL (74-99); Magnesium 1.6 mg/dL (1.6-2.3); Non-African American GFR(MDRD) >60 (>60 ml/min/1.73 sqM); Potassium 4.1 mmol/L (3.5-5.1); Sodium 130 mmol/L (137-145)
[2017-02-27 12:10] LABS: Glucose,Whole Blood 122 mg/dL (75-99)
[2017-02-27] MEDS: SYMBICORT 160-4.5 MCG INHALER INHALATION SCH ×2 (12:23→20:14)
[2017-02-27] MEDS: MULTIVITAMINS, THERA 1 EACH TAB PEG/G-TUBE SCH (13:06)
--- NOTE | 2017-02-27 14:17 | P.PN ---
Subjective . Personal being dictated for Dr. Mason. Interval history: This is a 76-year-old male who we saw yesterday in consultation. 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 02/20/2017 sodium 131, normal saline discontinued. Continues on tube feeds with minimal to no residuals. Denies abdominal pain, no nausea, no vomiting. Breathing improving .Remains febrile, T-max in 100. Sputum currently reporting presumptive staph. Maintained on vancomycin and Merrem as per infectious disease. IVIG infusions ordered, IgG in the 200s. Denies chest pain, palpitations or increasing shortness of breath. 02/23/2017. Sputum culture positive for MRSA, continue on antibiotics as per ID. Evaluated by speech therapy today with recommendations noted. Afebrile, T- max 102.9. Oncology family meeting in a.m. no nausea or emesis this morning.. Sodium 128. 02/24/2017. Awaiting oncology family meeting this morning. T-max 101. Antibiotics continue as per infectious disease. Sodium 131. Denies chest pain, palpitations or increasing shortness of breath. 2216. Preparing significantly improved. T-max 99.1. Maintained on IV vancomycin as per infectious disease. Most recent sodium 130, oral sodium discontinued. INR 1.7. Denies chest pain, palpitations or increasing shortness of breath. Objective - Vital Signs Vital signs: Vital Signs Temp 98.6 F 02/27/17 07:07 Pulse 91 02/27/17 08:00 Resp 14 02/27/17 08:00 BP 104/51 02/27/17 10:05 Pulse Ox 96 02/27/17 12:46 Intake & Output 02/26/17 02/27/17 02/27/17 18:59 06:59 18:59 Intake Total 905 610 520 Output Total 1600 Balance -939 610 520 Weight 88.5 kg 88 kg Intake: Oral 0 Tube Feeding 905 610 520 Output: Urine 1600 Other: Voiding Method Urinal Urinal Urinal # Voids 1 3 1 # Bowel Movements 1 - Exam PHYSICAL EXAM: VITAL SIGNS: [As above] GENERAL: Sitting up in bed, no acute distress HEENT: Conjunctivae normal. eyes normal. NECK: No JVD. No thyroid enlargement. CARDIOVASCULAR: S1, S2 muffled. No murmurs, rubs or gallops RESPIRATION: Bilateral bases diminished, no wheezing, no crackles, occasional rhonchi ABDOMEN: Soft, nontender . No guarding. no masses palpable. PEG tube present , positive Bowel sounds. LEGS: Positive edema. no swelling. PSYCHIATRY: Alert and oriented -3, mood and affect normal. 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 Diffuse weakness. No new focal deficits. No sensory deficit. Skin: no ulcer no rash. Microbiology 02/25/17 22:30 Blood Blood Culture - Preliminary No Growth after 24 hours 02/25/17 22:10 Blood Blood Culture - Preliminary No Growth after 24 hours 02/21/17 12:37 Blood Blood Culture - Preliminary No Growth after 120 hours 02/17/17 14:53 Blood Blood Culture - Final No Growth after 144 hours 02/17/17 14:36 Blood Blood Culture - Final No Growth after 144 hours 02/17/17 07:50 Blood Blood Culture - Final No Growth after 144 hours 02/17/17 22:35 Sputum Gram Stain - Final 02/17/17 22:35 Sputum Sputum Culture - Final Methicillin resist S. aureus 02/17/17 07:50 Urine,Voided Urine Culture - Final 02/17/17 12:02 Sputum Gram Stain - Final 02/17/17 12:02 Sputum Sputum Culture - Final - Labs CBC & Chem 7: 02/26/17 07:53 02/27/17 08:31 Labs: Abnormal Lab Results - Last 24 Hours (Table) 02/26/17 02/27/17 02/27/17 Range/Units 18:08 00:56 06:05 PT (9.0-12.0) sec INR (<1.2) Sodium (137-145) mmol/L Chloride (98-107) mmol/L Carbon Dioxide (22-30) mmol/L BUN (9-20) mg/dL Creatinine (0.66-1.25) mg/dL Glucose (74-99) mg/dL POC Glucose (mg/dL) 118 H 140 H 119 H (75-99) mg/dL Calcium (8.4-10.2) mg/dL 02/27/17 02/27/17 02/27/17 Range/Units 08:31 08:31 12:08 PT 16.9 H (9.0-12.0) sec INR 1.7 H (<1.2) Sodium 130 L (137-145) mmol/L Chloride 95 L (98-107) mmol/L Carbon Dioxide 33 H (22-30) mmol/L BUN 22 H (9-20) mg/dL Creatinine 0.62 L (0.66-1.25) mg/dL Glucose 106 H (74-99) mg/dL POC Glucose (mg/dL) 122 H (75-99) mg/dL Calcium 7.9 L (8.4-10.2) mg/dL Microbiology - Last 24 Hours (Table) 02/25/17 22:30 Blood Culture - Preliminary Blood No Growth after 24 hours 02/25/17 22:10 Blood Culture - Preliminary Blood No Growth after 24 hours 02/21/17 12:37 Blood Culture - Preliminary Blood No Growth after 120 hours Assessment and Plan Plan: Syncope, likely secondary to dehydration with hyponatremia/SIADH, fevers. Possible left lower lobe pneumonia versus atelectasis, presumptive staph currently in sputum; recent cultures of MRSA and Enterobacter [place]. Sputum culture positive for MRSA. Hyponatremia, possibly related to SIADH related to pneumonia,malignancy. Fever, related to pneumonia, and CLL COPD, inactive CLL Paroxysmal atrial fibrillation Hypothyroidism Fletcher's [id number] Dysphagia secondary to lymphoma, status post PEG tube placement maintained on tube feeds Recent varicella zoster infection, Plan: Continue on current medication regime ,monitoring and symptomatic treatment. Additional Lasix administered today with free water adjusted as per nephrology. Maintain nebulized bronchodilators. Antibiotics as per infectious disease. Discharge planning in progress pending infectious disease DC recommendations/ clearance. Further recommendations to follow. The impression and plan of care has been dictated as directed as a scribe. : I performed a H&P examination of this patient and discussed the same with the dictator. I agree with the dictator's note. Any additional findings/opinions/ etc. will be noted.
--- NOTE | 2017-02-27 16:28 | P.PN ---
Subjective 76-year-old male patient is very well-known to me. Unfortunately patient had a prolonged and complicated course of CLL. Note that the patient was in a good state of health until approximately 3 months ago when he started having infectious complications. 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 Note that he was transferred to [facility] and he had an ENT evaluation done at that time that showed lymphomatous infiltration of his throat which contributed to his difficulty in swallowing. As such the patient has a PEG tube for enteral feeding and nutritional support and his periodically being evaluated by the swallow pathologist for his ability to eat orally. Currently is on enteral feeding via a PEG tube. Is also known to have COPD, hypothyroidism, atrial fibrillation as comorbid conditions This patient was recently in the hospital. He was treated and he was discharged to go home where he was being taken care of by his . The patient came into the hospital because of syncopal episodes probably related to dehydration and orthostasis. At the same time he was hyponatremic and the possibility of left lower lobe pneumonia was also entertained 9 that there was a new consolidation of the left lung base. His sputum showed MRSA and make and the patient was started on vancomycin. He is also meropenem. He is currently receiving antibiotics without any major complications or side effects. He still has a congested cough unable to bring up much of sputum. He does have a decent coughing reflex. No respiratory distress. No hemoptysis no pleurisy. No chest pain. No altered mentation. On and off is still having fever the most recent of which was yesterday for which the patient was given IV Tylenol.. He is being followed up by infectious disease. He is also on long-term anticoagulation with warfarin regarding his atrial fibrillation. INR is subtherapeutic at this point. On 02/24/2017 the patient seen in follow-up for left lower lobe pneumonia, sputum positive for MRSA, Fletcher's palsy, difficulty swallowing, episodic fever secondary to CLL, and hyponatremia. Patient's spouse as it is at the bedside. Patient has been participating with the physical therapy, ambulating in hallway. Patient and the spouse both verbalize improvement in overall clinical status. Patient denies any specific restrictive complaints, maintains oxygen saturations in the 93-94% range on 4 L per nasal cannula. Speech therapist is on consult and will reevaluate the swallowing ability today. Patient will call will continue with tube feedings via the PEG tube, states she tolerates it well. Continues with intermittent febrile episodes, treated with acetaminophen. Lung sounds-a few scattered rales at the bases of the lungs. Nephrology increased Lasix to twice a day yesterday, improvement in the bilateral lower extremity edema has been noted. Today's serum sodium is 131 and it is improved from 128 on 02/23/2017. On 02/25/2017 I see this patient quite awake and alert and he is interactive. He is not having any major stroke difficulties. He is coughing up mucus. He has MRSA in the sputum and MRSA pneumonia suspected and patient is currently on IV vancomycin. A total duration of antibiotics is not determined although I suspect the patient will need somewhere between 10-14 days. No fever. No chills. PEG tube site is clean. The patient is still receiving enteral feeding for nutritional support. The patient is using the appropriate hearing aids and he is able to communicate better. No significant weakness at this point as the patient is doing daily walking. No fever. No chills. The patient is on long-term anticoagulation regarding his atrial fibrillation and INR from today subtherapeutic and further adjustments will be done accordingly. 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 On the patient is doing well and has no specific complaints. He continues to improve. No fever. No chills. Receiving enteral feeding for nutritional support. No reported aspiration. He feels stronger. ID is on the case and in the process of discharging this patient. On 02/25/2017 the patient is being seen in follow-up. No specific complaints. The patient is afebrile. The patient on IV vancomycin. Sodium level is at 1: 30. INR is at 1.7. Tolerating enteral feeding for nutritional support. Resting comfortably in bed. Objective - Vital Signs Vital signs: Vital Signs Temp 99.0 F 02/27/17 15:00 Pulse 87 02/27/17 15:00 Resp 14 02/27/17 08:00 BP 107/54 02/27/17 15:00 Pulse Ox 96 02/27/17 15:00 Intake & Output 02/26/17 02/27/17 02/27/17 18:59 06:59 18:59 Intake Total 905 610 520 Output Total 1600 400 Balance -695 610 120 Weight 88.5 kg 88 kg Intake: Oral 0 Tube Feeding 905 610 520 Output: Urine 1600 400 Other: Voiding Method Urinal Urinal Urinal # Voids 1 3 1 # Bowel Movements 1 - Exam Head exam was generally normal. There was no scleral icterus or corneal arcus. Mucous membranes were moist. The patient has an obvious facial asymmetry with a left facial droop related to his Fletcher's palsy.Neck was supple and without jugular venous distension, thyromegaly, or carotid bruits. Carotids were easily palpable bilaterally. There was no adenopathy. Lung sounds are diminished in lung bases bilaterally. Few scattered expiratory wheezes. Crackles in lung bases more so on the left.Cardiac exam revealed the PMI to be normally situated and sized. The rhythm was regular and no extrasystoles were noted during several minutes of auscultation. The first and second heart sounds were normal and physiologic splitting of the second heart sound was noted. There were no murmurs, rubs, clicks, or gallops.Abdominal exam revealed normal bowel sounds. The abdomen was soft, non-tender, and without masses, organomegaly, or appreciable enlargement of the abdominal aorta. The PEG tube site is dry clean and intact. No direct tenderness no rebound tenderness. No guarding. Bowel sounds are hypoactive at the present.Examination of the extremities revealed easily palpable radial, femoral and pedal pulses. There was no cyanosis, clubbing or edema. Neurologically the patient has impaired hearing and the patient has an obvious facial palsy involving the left face. Motor function the left upper and left lower oximetry is within normal limits. In fact motor function is symmetric in all 4 extremities. Coughing reflexes present. Swallow reflex is poor. Skeletal exam is within normal limits without any deformities or fractures. Skin exam is within normal without any active rash or skin eruption. - Labs CBC & Chem 7: 02/26/17 07:53 02/27/17 08:31 Labs: Abnormal Lab Results - Last 24 Hours (Table) 02/26/17 02/27/17 02/27/17 Range/Units 18:08 00:56 06:05 PT (9.0-12.0) sec INR (<1.2) Sodium (137-145) mmol/L Chloride (98-107) mmol/L Carbon Dioxide (22-30) mmol/L BUN (9-20) mg/dL Creatinine (0.66-1.25) mg/dL Glucose (74-99) mg/dL POC Glucose (mg/dL) 118 H 140 H 119 H (75-99) mg/dL Calcium (8.4-10.2) mg/dL 02/27/17 02/27/17 02/27/17 Range/Units 08:31 08:31 12:08 PT 16.9 H (9.0-12.0) sec INR 1.7 H (<1.2) Sodium 130 L (137-145) mmol/L Chloride 95 L (98-107) mmol/L Carbon Dioxide 33 H (22-30) mmol/L BUN 22 H (9-20) mg/dL Creatinine 0.62 L (0.66-1.25) mg/dL Glucose 106 H (74-99) mg/dL POC Glucose (mg/dL) 122 H (75-99) mg/dL Calcium 7.9 L (8.4-10.2) mg/dL Microbiology - Last 24 Hours (Table) 02/21/17 12:37 Blood Culture - Final Blood No Growth after 144 hours 02/25/17 22:30 Blood Culture - Preliminary Blood No Growth after 24 hours 02/25/17 22:10 Blood Culture - Preliminary Blood No Growth after 24 hours Assessment and Plan Plan: Assessment 1 suspected left lower lobe pneumonia. The patient has a sputum that's positive for MRSA. Clinically improved significantly with antibiotic treatment and the patient has been complaining course of vancomycin per IDs recommendation. 2 episodic fever. Rule out infectious. 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 Continue anticoagulation with warfarin. Monitor PT/INR. Continue vancomycin. Condition is stable. Physical therapy. Discharge planning is in progress.
[2017-02-27 17:58] LABS: Glucose,Whole Blood 112 mg/dL (75-99)
[2017-02-27] MEDS ORDERED: WARFARIN 5 MG TAB PO SCH (18:00)
[2017-02-27] MEDS ORDERED: WARFARIN 5 MG TAB PO ONE (18:00)
--- NOTE | 2017-02-27 21:32 | P.PN ---
Subjective Principal diagnosis: sepsis 76-year-old male with a known history of chronic lymphocytic leukemia with not been any therapy up to this December. However that point in time he presented to Hospital feeling poorly. Had severe sore throat difficulty with chewing and swallowing. He was not feeling well. He was hospitalized at that time and treated with antibiotic therapy with concerns to pneumonia and high- grade fever. He also developed an extensive skin rash. Testing at our facility did confirm varicella-zoster which he had treatment for from beginning of his stay in December. Because of his ongoing difficulties with swallowing he was transferred to his oncologist at [facility]. 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 And he was initiated to Rituxan therapy. 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 At this time the patient is still somewhat miserable. He is unaware of the events that occurred that led him to the hospital. He apparently was unconscious when the found him and she was concerned that there was seizure. He constantly was brought to Hospital by EMS. At this time he is sitting up right somewhat comfortable. He is oriented and able to converse although he is quite hard of hearing He was having significant pains earlier and is now more comfortable. His significant abdominal discomforts have improved. He does cough and has had fever does not relate to significant sputum production or hemoptysis. temperature of 100.1 and overall is improved but stll weak. is very anxious to continue chemotherapy. The patient and that with the oncologist this morning. Once the patient is cleared from infection he will then be able to proceed with his next course of chemotherapy. The leg is extremely anxious that his day is coming up in a couple of days. She would like him to stay on track. The oncologist discussed that he needs to be free of infection before his next course of chemotherapy. 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 Objective - Vital Signs Vital signs: Vital Signs Temp 99.4 F 02/27/17 21:25 Pulse 90 02/27/17 21:25 Resp 16 02/27/17 21:25 BP 126/63 02/27/17 21:25 Pulse Ox 96 02/27/17 21:25 Intake & Output 02/27/17 02/27/17 02/28/17 06:59 18:59 06:59 Intake Total 610 780 260 Output Total 400 Balance 610 380 260 Weight 88 kg Intake: Tube Feeding 610 780 260 Output: Urine 400 Other: Voiding Method Urinal Urinal # Voids 3 1 # Bowel Movements 1 - Exam 76-year-old male who appears older than his stated age. He is weak and ill in appearance relates he has less pain when he tries to swallow was seen by speech pathology and they're starting to improve his swallow mechanisms by training with ice cubes. HEENT: Anicteric conjunctiva are pink and moist nasal mucosa grossly intact without significant lesions, there is no thrush. Is noted he had extensive thrush that is now resolved just has some dry oral cavity evidence of new HSV lesions left posterior pharynx, improving today Neck: The neck is supple without significant lymphadenopathy or thyromegaly. Lungs: Good bilateral air entry there is evidence of crackles at the left base otherwise the chest is quite clear Heart: Regular rate and rhythm with an audible S1-S2, no S3 no S4. There is no significant murmur click or rub, PMI was nondisplaced. Abdomen: Positive bowel sounds soft and nontender without palpable masses or organomegaly. There was no guarding or rebound. PEG tube site is intact Extremities: The upper extremities have excellent pulses they are symmetric, no significant petechiae or telangiectasia. No splinter hemorrhages were noted. The lower extremities are free from significant edema. The peripheral pulses were 2+ and symmetric. Neuro: Awake alert oriented to person and place. Does not exhibit acute gross focal sensory motor deficits at this time - Labs CBC & Chem 7: 02/26/17 07:53 02/27/17 08:31 Labs: Abnormal Lab Results - Last 24 Hours (Table) 02/27/17 02/27/17 02/27/17 Range/Units 00:56 06:05 08:31 PT 16.9 H (9.0-12.0) sec INR 1.7 H (<1.2) Sodium (137-145) mmol/L Chloride (98-107) mmol/L Carbon Dioxide (22-30) mmol/L BUN (9-20) mg/dL Creatinine (0.66-1.25) mg/dL Glucose (74-99) mg/dL POC Glucose (mg/dL) 140 H 119 H (75-99) mg/dL Calcium (8.4-10.2) mg/dL 02/27/17 02/27/17 02/27/17 Range/Units 08:31 12:08 17:56 PT (9.0-12.0) sec INR (<1.2) Sodium 130 L (137-145) mmol/L Chloride 95 L (98-107) mmol/L Carbon Dioxide 33 H (22-30) mmol/L BUN 22 H (9-20) mg/dL Creatinine 0.62 L (0.66-1.25) mg/dL Glucose 106 H (74-99) mg/dL POC Glucose (mg/dL) 122 H 112 H (75-99) mg/dL Calcium 7.9 L (8.4-10.2) mg/dL Microbiology - Last 24 Hours (Table) 02/21/17 12:37 Blood Culture - Final Blood No Growth after 144 hours 02/25/17 22:30 Blood Culture - Preliminary Blood No Growth after 24 hours 02/25/17 22:10 Blood Culture - Preliminary Blood No Growth after 24 hours Laboratory Results WBC 5.7 k/uL (3.8-10.6) 02/26/17 07:53 RBC 3.18 m/uL (4.30-5.90) L 02/26/17 07:53 Hgb 8.8 gm/dL (13.0-17.5) L 02/26/17 07:53 Hct 28.7 % (39.0-53.0) L 02/26/17 07:53 MCV 90.3 fL (80.0-100.0) 02/26/17 07:53 MCH 27.8 pg (25.0-35.0) 02/26/17 07:53 MCHC 30.7 g/dL (31.0-37.0) L 02/26/17 07:53 RDW 19.6 % (11.5-15.5) H 02/26/17 07:53 Plt Count 116 k/uL (150-450) L 02/26/17 07:53 Neutrophils % (Manual) 18 % 02/26/17 07:53 Band Neutrophils % 1 % 02/26/17 07:53 Lymphocytes % (Manual) 73 % 02/26/17 07:53 Monocytes % (Manual) 6 % 02/26/17 07:53 Eosinophils % (Manual) 2 % 02/26/17 07:53 Neutrophils # (Manual) 1.00 k/uL (1.3-7.7) L 02/26/17 07:53 Lymphocytes # (Manual) 4.16 k/uL (1.0-4.8) 02/26/17 07:53 Monocytes # (Manual) 0.34 k/uL (0-1.0) 02/26/17 07:53 Eosinophils # (Manual) 0.11 k/uL (0-0.7) 02/26/17 07:53 Nucleated RBCs 0 /100 WBC (0-0) 02/26/17 07:53 Manual Slide Review Performed 02/26/17 07:53 Polychromasia Present 02/23/17 13:25 Hypochromasia Marked 02/26/17 07:53 Poikilocytosis (manual Present 02/26/17 07:53 Anisocytosis Slight 02/26/17 07:53 Macrocytosis Slight 02/19/17 07:36 Ovalocytes Present 02/24/17 07:45 PT 16.9 sec (9.0-12.0) H 02/27/17 08:31 INR 1.7 (<1.2) H 02/27/17 08:31 APTT 27.6 sec (22.0-30.0) 02/17/17 07:50 Sodium 130 mmol/L (137-145) L 02/27/17 08:31 Potassium 4.1 mmol/L (3.5-5.1) 02/27/17 08:31 Chloride 95 mmol/L (98-107) L 02/27/17 08:31 Carbon Dioxide 33 mmol/L (22-30) H 02/27/17 08:31 Anion Gap 2 mmol/L 02/27/17 08:31 BUN 22 mg/dL (9-20) H 02/27/17 08:31 Creatinine 0.62 mg/dL (0.66-1.25) L 02/27/17 08:31 Est GFR (MDRD) Af Amer >60 (>60 ml/min/1.73 sqM) 02/27/17 08:31 Est GFR (MDRD) Non-Af >60 (>60 ml/min/1.73 sqM) 02/27/17 08:31 Glucose 106 mg/dL (74-99) H 02/27/17 08:31 POC Glucose (mg/dL) 112 mg/dL (75-99) H 02/27/17 17:56 POC Glu [employer] ID Ivory Snyder 02/27/17 17:56 Osmolality 274 mosm/kg (280-301) L 02/18/17 07:26 Plasma Lactic Acid Jason 1.2 mmol/L (0.7-2.0) 02/17/17 07:50 Uric Acid 2.0 mg/dL (3.5-8.5) L 02/19/17 07:36 Calcium 7.9 mg/dL (8.4-10.2) L 02/27/17 08:31 Phosphorus 2.9 mg/dL (2.5-4.5) 02/17/17 07:50 Magnesium 1.6 mg/dL (1.6-2.3) 02/27/17 08:31 Total Bilirubin 0.5 mg/dL (0.2-1.3) 02/18/17 07:26 AST 29 U/L (17-59) 02/18/17 07:26 ALT 43 U/L (21-72) 02/18/17 07:26 Alkaline Phosphatase 52 U/L (38-126) 02/18/17 07:26 Total Creatine Kinase <20 U/L (55-170) L 02/17/17 07:50 CK-MB (CK-2) 0.3 ng/mL (0.0-2.4) 02/17/17 07:50 CK-MB (CK-2) Rel Index 02/17/17 07:50 Troponin I <0.012 ng/mL (0.000-0.034) 02/18/17 12:52 Total Protein 4.1 g/dL (6.3-8.2) L 02/18/17 07:26 Albumin 2.4 g/dL (3.5-5.0) L 02/18/17 07:26 TSH 5.540 mIU/L (0.465-4.680) H 02/19/17 07:36 Free T4 1.20 ng/dL (0.78-2.19) 02/19/17 07:36 Cortisol 18 ug/dL 02/19/17 07:36 Urine Color Yellow 02/17/17 07:50 Urine Appearance Clear (Clear) 02/17/17 07:50 Urine pH 8.0 (5.0-8.0) 02/17/17 07:50 Ur Specific [place] 1.010 (1.001-1.035) 02/17/17 07:50 Urine Protein Trace (Negative) H 02/17/17 07:50 Urine Glucose (UA) Negative (Negative) 02/17/17 07:50 Urine Ketones Negative (Negative) 02/17/17 07:50 Urine Blood Negative (Negative) 02/17/17 07:50 Urine Nitrite Negative (Negative) 02/17/17 07:50 Urine Bilirubin Negative (Negative) 02/17/17 07:50 Urine Urobilinogen <2.0 mg/dL (<2.0) 02/17/17 07:50 Ur Leukocyte Esterase Negative (Negative) 02/17/17 07:50 Urine Osmolality 793 mosm/kg (50-1400) 02/18/17 06:48 Ur Random Creatinine 63.8 mg/dL 02/17/17 07:50 Ur Random Sodium 141 mmol/L (30-90) H 02/18/17 06:48 Ur Random Potassium 43.7 mmol/L 02/17/17 07:50 Ur Random Urea Nitrogn 433.0 mg/dL 02/17/17 07:50 Ur Random Calcium 6.6 mg/dL 02/17/17 07:50 Stool Occult Blood Negative (Negative) 02/24/17 10:50 Vancomycin Trough 18.8 ug/mL 02/26/17 07:53 IgG 226.0 mg/dL (700.0-1600.0) L 02/20/17 07:17 IgA <25.5 mg/dL (60.0-350.0) L 02/20/17 07:17 IgM <16.9 mg/dL (40.0-280.0) L 02/20/17 07:17 Microbiology 02/21/17 12:37 Blood Blood Culture - Final No Growth after 144 hours 02/25/17 22:30 Blood Blood Culture - Preliminary No Growth after 24 hours 02/25/17 22:10 Blood Blood Culture - Preliminary No Growth after 24 hours 02/17/17 14:53 Blood Blood Culture - Final No Growth after 144 hours 02/17/17 14:36 Blood Blood Culture - Final No Growth after 144 hours 02/17/17 07:50 Blood Blood Culture - Final No Growth after 144 hours 02/17/17 22:35 Sputum Gram Stain - Final 02/17/17 22:35 Sputum Sputum Culture - Final Methicillin resist S. aureus 02/17/17 07:50 Urine,Voided Urine Culture - Final 02/17/17 12:02 Sputum Gram Stain - Final 02/17/17 12:02 Sputum Sputum Culture - Final Assessment and Plan (1) Febrile illness, acute Status: Acute (2) Left lower lobe pneumonia Narrative/Plan: 76-year-old male noted infectious disease service for his 2 recent admissions. During the summer he had significant difficulties with the onset difficulty with swallowing and fevers and varicella-zoster. At that time there was concerns that his malignancy had changed. 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 He received Rituxan therapy. Was also noted to have hypogammaglobulinemia and he received IgG therapy. If not clear when his last IgG therapy was given. We have a more recent IgG level that appears to be low at just over 400. Oncology is following and will help determine the need for immunoglobulin replacement therapy at this time. Recent cultures are reviewed and there was evidence of Enterobacter and MRSA in his sputum. sputum revealed only MRSA and will be able to discontinue the Merrem overall improved but low grade temp today. Fortunately blood cultures are negative so far. His discomforts are improving. Nutrition is being given through his tube. His recent varicella-zoster is completely resolved. He is being followed by oncology and until he is well cannot receive further chemotherapy On the he did receive his dose of intravenous immunoglobulin. He hopefully will continue to show ongoing improvement. Fevers have improved . Patient seems to be showing some improvement. Continue current antibiotic therapy. Meropenem was discontinued . As noted the oral cavity exam shows evidence of some herpetic lesions in the posterior pharynx. These may be giving him some of his discomforts. The possibility there may also be causing some of his fever is concerned and Valtrex was started via his PEG tube. Follow up blood cultures requested today the infiltrate on the chest x-ray is markedly improved. If he remains afebrile may complete his vancomycin therapy in 2 days. Hopefully the infection resolves and performance status are high enough for him to proceed. Status: Acute (3) Small B-cell lymphoma Status: Acute
[2017-02-27] MEDS: LORazepam 1 MG TAB PO PRN (22:44)
[2017-02-28 00:11] LABS: Glucose,Whole Blood 134 mg/dL (75-99)
[2017-02-28 05:44] LABS: Glucose,Whole Blood 130 mg/dL (75-99)
[2017-02-28] MEDS: LEVOTHYROXINE 125 MCG TAB PEG/G-TUBE SCH (06:14)
[2017-02-28] MEDS: SYMBICORT 160-4.5 MCG INHALER INHALATION SCH ×2 (07:46→19:47)
[2017-02-28] MEDS: IPRATROPIUM-ALBUTEROL 3 ML NEB INHALATION PRN (07:46)
[2017-02-28] MEDS: FUROSEMIDE 20 MG TAB PO SCH ×2 (08:30→17:56)
[2017-02-28] MEDS: NYSTATIN 100,000 UNIT/ML SUSP 500,000 UNIT/5 ML CUP PO SCH ×4 (08:30→22:30)
[2017-02-28] MEDS: ENOXAPARIN 40 MG/0.4 ML SYRINGE SQ SCH (08:30)
[2017-02-28] MEDS: valACYclovir HCL 1,000 MG TABLET PO SCH ×2 (08:30→22:30)
[2017-02-28] MEDS: DILTIAZEM ORAL 30 MG TAB PO SCH ×4 (08:30→22:30)
[2017-02-28] MEDS: VANCOMYCIN 1,750 MG in SODIUM CHLORIDE 0.9% 250 ML IVPB SCH ×2 (08:47→20:23)
[2017-02-28 10:19] LABS: Anion Gap 5 mmol/L; Blood Urea Nitrogen 24 mg/dL (9-20); Calcium 8.1 mg/dL (8.4-10.2); Carbon Dioxide 32 mmol/L (22-30); Chloride 94 mmol/L (98-107); Glucose 119 mg/dL (74-99); Non-African American GFR(MDRD) >60 (>60 ml/min/1.73 sqM); Potassium 3.9 mmol/L (3.5-5.1); Sodium 131 mmol/L (137-145)
[2017-02-28 12:34] LABS: Glucose,Whole Blood 121 mg/dL (75-99)
[2017-02-28] MEDS: MULTIVITAMINS, THERA 1 EACH TAB PEG/G-TUBE SCH (13:02)
[2017-02-28 13:42] LABS: Anisocytosis Slight; Aty Lym Flag Marked; CH 27.1; CHCM 29.4; HCT 27.6 % (39.0-53.0); HDW 3.03; HGB 8.3 gm/dL (13.0-17.5); Hypochromasia Marked; MCH 27.8 pg (25.0-35.0); MCHC 30.1 g/dL (31.0-37.0); MCV 92.6 fL (80.0-100.0); Mean Platelet Volume 8.3; RBC 2.98 m/uL (4.30-5.90); RDW 19.4 % (11.5-15.5); WBC (Perox) 8.12
[2017-02-28 13:43] LABS: INR 1.8 (<1.2); Prothrombin Time 17.5 sec (9.0-12.0)
[2017-02-28 13:55] LABS: Add Differential Manual Differential
[2017-02-28 13:58] LABS: Band Neutrophils % 1 %; Nucleated Red Blood Cells 0 /100 WBC (0-0); Polychromasia Present; Total Cells Counted 100
--- NOTE | 2017-02-28 14:08 | P.PN ---
Subjective 76-year-old male patient is very well-known to me. Unfortunately patient had a prolonged and complicated course of CLL. Note that the patient was in a good state of health until approximately 3 months ago when he started having infectious complications. 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 Note that he was transferred to [facility] and he had an ENT evaluation done at that time that showed lymphomatous infiltration of his throat which contributed to his difficulty in swallowing. As such the patient has a PEG tube for enteral feeding and nutritional support and his periodically being evaluated by the swallow pathologist for his ability to eat orally. Currently is on enteral feeding via a PEG tube. Is also known to have COPD, hypothyroidism, atrial fibrillation as comorbid conditions This patient was recently in the hospital. He was treated and he was discharged to go home where he was being taken care of by his . The patient came into the hospital because of syncopal episodes probably related to dehydration and orthostasis. At the same time he was hyponatremic and the possibility of left lower lobe pneumonia was also entertained 9 that there was a new consolidation of the left lung base. His sputum showed MRSA and make and the patient was started on vancomycin. He is also meropenem. He is currently receiving antibiotics without any major complications or side effects. He still has a congested cough unable to bring up much of sputum. He does have a decent coughing reflex. No respiratory distress. No hemoptysis no pleurisy. No chest pain. No altered mentation. On and off is still having fever the most recent of which was yesterday for which the patient was given IV Tylenol.. He is being followed up by infectious disease. He is also on long-term anticoagulation with warfarin regarding his atrial fibrillation. INR is subtherapeutic at this point. On 02/24/2017 the patient seen in follow-up for left lower lobe pneumonia, sputum positive for MRSA, Fletcher's palsy, difficulty swallowing, episodic fever secondary to CLL, and hyponatremia. Patient's spouse as it is at the bedside. Patient has been participating with the physical therapy, ambulating in hallway. Patient and the spouse both verbalize improvement in overall clinical status. Patient denies any specific restrictive complaints, maintains oxygen saturations in the 93-94% range on 4 L per nasal cannula. Speech therapist is on consult and will reevaluate the swallowing ability today. Patient will call will continue with tube feedings via the PEG tube, states she tolerates it well. Continues with intermittent febrile episodes, treated with acetaminophen. Lung sounds-a few scattered rales at the bases of the lungs. Nephrology increased Lasix to twice a day yesterday, improvement in the bilateral lower extremity edema has been noted. Today's serum sodium is 131 and it is improved from 128 on 02/23/2017. On 02/25/2017 I see this patient quite awake and alert and he is interactive. He is not having any major stroke difficulties. He is coughing up mucus. He has MRSA in the sputum and MRSA pneumonia suspected and patient is currently on IV vancomycin. A total duration of antibiotics is not determined although I suspect the patient will need somewhere between 10-14 days. No fever. No chills. PEG tube site is clean. The patient is still receiving enteral feeding for nutritional support. The patient is using the appropriate hearing aids and he is able to communicate better. No significant weakness at this point as the patient is doing daily walking. No fever. No chills. The patient is on long-term anticoagulation regarding his atrial fibrillation and INR from today subtherapeutic and further adjustments will be done accordingly. 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 On the patient is doing well and has no specific complaints. He continues to improve. No fever. No chills. Receiving enteral feeding for nutritional support. No reported aspiration. He feels stronger. ID is on the case and in the process of discharging this patient. On 02/27/2017 the patient is being seen in follow-up. No specific complaints. The patient is afebrile. The patient on IV vancomycin. Sodium level is at 130. INR is at 1.7. Tolerating enteral feeding for nutritional support. Resting comfortably in bed. On 02/28/2017 the patient remains essentially the same. The patient is essentially the hospital to complete his vancomycin course. His resting comfortably in bed. Sodium level is up to 131. Hemoglobin is at 8.3. No fever or chills. INR is up to 1.8. Hemodynamically stable. Objective - Vital Signs Vital signs: Vital Signs Temp 98 F 02/28/17 07:00 Pulse 92 02/28/17 08:01 Resp 18 02/28/17 07:00 BP 141/75 02/28/17 07:00 Pulse Ox 94 L 02/28/17 07:00 Intake & Output 02/27/17 02/28/17 02/28/17 18:59 06:59 18:59 Intake Total 780 780 290 Output Total 400 Balance 380 780 290 Weight 91.5 kg Intake: Tube Feeding 780 780 290 Output: Urine 400 Other: Voiding Method Urinal Urinal Urinal # Voids 1 1 # Bowel Movements 1 - Exam Head exam was generally normal. There was no scleral icterus or corneal arcus. Mucous membranes were moist. The patient has an obvious facial asymmetry with a left facial droop related to his Fletcher's palsy.Neck was supple and without jugular venous distension, thyromegaly, or carotid bruits. Carotids were easily palpable bilaterally. There was no adenopathy. Lung sounds are diminished in lung bases bilaterally. Few scattered expiratory wheezes. Crackles in lung bases more so on the left.Cardiac exam revealed the PMI to be normally situated and sized. The rhythm was regular and no extrasystoles were noted during several minutes of auscultation. The first and second heart sounds were normal and physiologic splitting of the second heart sound was noted. There were no murmurs, rubs, clicks, or gallops.Abdominal exam revealed normal bowel sounds. The abdomen was soft, non-tender, and without masses, organomegaly, or appreciable enlargement of the abdominal aorta. The PEG tube site is dry clean and intact. No direct tenderness no rebound tenderness. No guarding. Bowel sounds are hypoactive at the present.Examination of the extremities revealed easily palpable radial, femoral and pedal pulses. There was no cyanosis, clubbing or edema. Neurologically the patient has impaired hearing and the patient has an obvious facial palsy involving the left face. Motor function the left upper and left lower oximetry is within normal limits. In fact motor function is symmetric in all 4 extremities. Coughing reflexes present. Swallow reflex is poor. Skeletal exam is within normal limits without any deformities or fractures. Skin exam is within normal without any active rash or skin eruption. - Labs CBC & Chem 7: 02/28/17 13:20 02/28/17 09:12 Labs: Abnormal Lab Results - Last 24 Hours (Table) 02/27/17 02/28/17 02/28/17 Range/Units 17:56 00:10 05:42 RBC (4.30-5.90) m/uL Hgb (13.0-17.5) gm/dL Hct (39.0-53.0) % MCHC (31.0-37.0) g/dL RDW (11.5-15.5) % Plt Count (150-450) k/uL Neutrophils # (Manual) (1.3-7.7) k/uL Lymphocytes # (Manual) (1.0-4.8) k/uL PT (9.0-12.0) sec INR (<1.2) Sodium (137-145) mmol/L Chloride (98-107) mmol/L Carbon Dioxide (22-30) mmol/L BUN (9-20) mg/dL Glucose (74-99) mg/dL POC Glucose (mg/dL) 112 H 134 H 130 H (75-99) mg/dL Calcium (8.4-10.2) mg/dL 02/28/17 02/28/17 02/28/17 Range/Units 09:12 12:30 13:15 RBC (4.30-5.90) m/uL Hgb (13.0-17.5) gm/dL Hct (39.0-53.0) % MCHC (31.0-37.0) g/dL RDW (11.5-15.5) % Plt Count (150-450) k/uL Neutrophils # (Manual) (1.3-7.7) k/uL Lymphocytes # (Manual) (1.0-4.8) k/uL PT 17.5 H (9.0-12.0) sec INR 1.8 H (<1.2) Sodium 131 L (137-145) mmol/L Chloride 94 L (98-107) mmol/L Carbon Dioxide 32 H (22-30) mmol/L BUN 24 H (9-20) mg/dL Glucose 119 H (74-99) mg/dL POC Glucose (mg/dL) 121 H (75-99) mg/dL Calcium 8.1 L (8.4-10.2) mg/dL 02/28/17 Range/Units 13:20 RBC 2.98 L (4.30-5.90) m/uL Hgb 8.3 L (13.0-17.5) gm/dL Hct 27.6 L (39.0-53.0) % MCHC 30.1 L (31.0-37.0) g/dL RDW 19.4 H (11.5-15.5) % Plt Count 142 L (150-450) k/uL Neutrophils # (Manual) 1.20 L (1.3-7.7) k/uL Lymphocytes # (Manual) 6.40 H (1.0-4.8) k/uL PT (9.0-12.0) sec INR (<1.2) Sodium (137-145) mmol/L Chloride (98-107) mmol/L Carbon Dioxide (22-30) mmol/L BUN (9-20) mg/dL Glucose (74-99) mg/dL POC Glucose (mg/dL) (75-99) mg/dL Calcium (8.4-10.2) mg/dL Microbiology - Last 24 Hours (Table) 02/25/17 22:30 Blood Culture - Preliminary Blood No Growth after 48 hours 02/25/17 22:10 Blood Culture - Preliminary Blood No Growth after 48 hours 02/21/17 12:37 Blood Culture - Final Blood No Growth after 144 hours Assessment and Plan Plan: Assessment 1 suspected left lower lobe pneumonia. The patient has a sputum that's positive for MRSA. Clinically improved significantly with antibiotic treatment and the patient has been completing a course of vancomycin per IDs recommendation. 2 episodic fever. Rule out infectious. 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
--- NOTE | 2017-02-28 16:40 | P.PN ---
Subjective Principal diagnosis: sepsis 76-year-old male with a known history of chronic lymphocytic leukemia with not been any therapy up to this December. However that point in time he presented to Hospital feeling poorly. Had severe sore throat difficulty with chewing and swallowing. He was not feeling well. He was hospitalized at that time and treated with antibiotic therapy with concerns to pneumonia and high- grade fever. He also developed an extensive skin rash. Testing at our facility did confirm varicella-zoster which he had treatment for from beginning of his stay in December. Because of his ongoing difficulties with swallowing he was transferred to his oncologist at [facility]. 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 And he was initiated to Rituxan therapy. 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 At this time the patient is still somewhat miserable. He is unaware of the events that occurred that led him to the hospital. He apparently was unconscious when the found him and she was concerned that there was seizure. He constantly was brought to Hospital by EMS. At this time he is sitting up right somewhat comfortable. He is oriented and able to converse although he is quite hard of hearing He was having significant pains earlier and is now more comfortable. His significant abdominal discomforts have improved. He does cough and has had fever does not relate to significant sputum production or hemoptysis. temperature of 100.1 and overall is improved but stll weak. is very anxious to continue chemotherapy. The patient and that with the oncologist this morning. Once the patient is cleared from infection he will then be able to proceed with his next course of chemotherapy. The leg is extremely anxious that his day is coming up in a couple of days. She would like him to stay on track. The oncologist discussed that he needs to be free of infection before his next course of chemotherapy. 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 Remains without fever and overall feels better Objective - Vital Signs Vital signs: Vital Signs Temp 98 F 02/28/17 07:00 Pulse 92 02/28/17 08:01 Resp 18 02/28/17 07:00 BP 141/75 02/28/17 07:00 Pulse Ox 94 L 02/28/17 07:00 Intake & Output 02/27/17 02/28/17 02/28/17 18:59 06:59 18:59 Intake Total 780 780 580 Output Total 400 Balance 380 780 580 Weight 91.5 kg Intake: Tube Feeding 780 780 580 Output: Urine 400 Other: Voiding Method Urinal Urinal Urinal # Voids 1 1 # Bowel Movements 1 - Exam 76-year-old male who appears older than his stated age. He is weak and ill in appearance relates he has less pain when he tries to swallow was seen by speech pathology and is improving his swallow mechanisms by training with ice cubes. HEENT: Anicteric conjunctiva are pink and moist nasal mucosa grossly intact without significant lesions, there is no thrush. Is noted he had extensive thrush that is now resolved just has some dry oral cavity, evidence of new HSV lesions left posterior pharynx, improving further Neck: The neck is supple without significant lymphadenopathy or thyromegaly. Lungs: Good bilateral air entry there is evidence of crackles at the left base otherwise the chest is quite clear Heart: Regular rate and rhythm with an audible S1-S2, no S3 no S4. There is no significant murmur click or rub, PMI was nondisplaced. Abdomen: Positive bowel sounds soft and nontender without palpable masses or organomegaly. There was no guarding or rebound. PEG tube site is intact Extremities: The upper extremities have excellent pulses they are symmetric, no significant petechiae or telangiectasia. No splinter hemorrhages were noted. The lower extremities are free from significant edema. The peripheral pulses were 2+ and symmetric. Neuro: Awake alert oriented to person and place. Does not exhibit acute gross focal sensory motor deficits at this time - Labs CBC & Chem 7: 02/28/17 13:20 02/28/17 09:12 Labs: Abnormal Lab Results - Last 24 Hours (Table) 02/27/17 02/28/17 02/28/17 Range/Units 17:56 00:10 05:42 RBC (4.30-5.90) m/uL Hgb (13.0-17.5) gm/dL Hct (39.0-53.0) % MCHC (31.0-37.0) g/dL RDW (11.5-15.5) % Plt Count (150-450) k/uL Neutrophils # (Manual) (1.3-7.7) k/uL Lymphocytes # (Manual) (1.0-4.8) k/uL PT (9.0-12.0) sec INR (<1.2) Sodium (137-145) mmol/L Chloride (98-107) mmol/L Carbon Dioxide (22-30) mmol/L BUN (9-20) mg/dL Glucose (74-99) mg/dL POC Glucose (mg/dL) 112 H 134 H 130 H (75-99) mg/dL Calcium (8.4-10.2) mg/dL 02/28/17 02/28/17 02/28/17 Range/Units 09:12 12:30 13:15 RBC (4.30-5.90) m/uL Hgb (13.0-17.5) gm/dL Hct (39.0-53.0) % MCHC (31.0-37.0) g/dL RDW (11.5-15.5) % Plt Count (150-450) k/uL Neutrophils # (Manual) (1.3-7.7) k/uL Lymphocytes # (Manual) (1.0-4.8) k/uL PT 17.5 H (9.0-12.0) sec INR 1.8 H (<1.2) Sodium 131 L (137-145) mmol/L Chloride 94 L (98-107) mmol/L Carbon Dioxide 32 H (22-30) mmol/L BUN 24 H (9-20) mg/dL Glucose 119 H (74-99) mg/dL POC Glucose (mg/dL) 121 H (75-99) mg/dL Calcium 8.1 L (8.4-10.2) mg/dL 02/28/17 Range/Units 13:20 RBC 2.98 L (4.30-5.90) m/uL Hgb 8.3 L (13.0-17.5) gm/dL Hct 27.6 L (39.0-53.0) % MCHC 30.1 L (31.0-37.0) g/dL RDW 19.4 H (11.5-15.5) % Plt Count 142 L (150-450) k/uL Neutrophils # (Manual) 1.20 L (1.3-7.7) k/uL Lymphocytes # (Manual) 6.40 H (1.0-4.8) k/uL PT (9.0-12.0) sec INR (<1.2) Sodium (137-145) mmol/L Chloride (98-107) mmol/L Carbon Dioxide (22-30) mmol/L BUN (9-20) mg/dL Glucose (74-99) mg/dL POC Glucose (mg/dL) (75-99) mg/dL Calcium (8.4-10.2) mg/dL Microbiology - Last 24 Hours (Table) 02/25/17 22:30 Blood Culture - Preliminary Blood No Growth after 48 hours 02/25/17 22:10 Blood Culture - Preliminary Blood No Growth after 48 hours 02/21/17 12:37 Blood Culture - Final Blood No Growth after 144 hours Laboratory Results WBC 8.0 k/uL (3.8-10.6) 02/28/17 13:20 RBC 2.98 m/uL (4.30-5.90) L 02/28/17 13:20 Hgb 8.3 gm/dL (13.0-17.5) L 02/28/17 13:20 Hct 27.6 % (39.0-53.0) L 02/28/17 13:20 MCV 92.6 fL (80.0-100.0) 02/28/17 13:20 MCH 27.8 pg (25.0-35.0) 02/28/17 13:20 MCHC 30.1 g/dL (31.0-37.0) L 02/28/17 13:20 RDW 19.4 % (11.5-15.5) H 02/28/17 13:20 Plt Count 142 k/uL (150-450) L 02/28/17 13:20 Neutrophils % (Manual) 15 % 02/28/17 13:20 Band Neutrophils % 1 % 02/28/17 13:20 Lymphocytes % (Manual) 80 % 02/28/17 13:20 Monocytes % (Manual) 4 % 02/28/17 13:20 Eosinophils % (Manual) 2 % 02/26/17 07:53 Neutrophils # (Manual) 1.20 k/uL (1.3-7.7) L 02/28/17 13:20 Lymphocytes # (Manual) 6.40 k/uL (1.0-4.8) H 02/28/17 13:20 Monocytes # (Manual) 0.32 k/uL (0-1.0) 02/28/17 13:20 Eosinophils # (Manual) 0.11 k/uL (0-0.7) 02/26/17 07:53 Nucleated RBCs 0 /100 WBC (0-0) 02/28/17 13:20 Manual Slide Review Performed 02/26/17 07:53 Polychromasia Present 02/28/17 13:20 Hypochromasia Marked 02/28/17 13:20 Poikilocytosis (manual Present 02/26/17 07:53 Anisocytosis Slight 02/28/17 13:20 Macrocytosis Slight 02/19/17 07:36 Ovalocytes Present 02/24/17 07:45 PT 17.5 sec (9.0-12.0) H 02/28/17 13:15 INR 1.8 (<1.2) H 02/28/17 13:15 APTT 27.6 sec (22.0-30.0) 02/17/17 07:50 Sodium 131 mmol/L (137-145) L 02/28/17 09:12 Potassium 3.9 mmol/L (3.5-5.1) 02/28/17 09:12 Chloride 94 mmol/L (98-107) L 02/28/17 09:12 Carbon Dioxide 32 mmol/L (22-30) H 02/28/17 09:12 Anion Gap 5 mmol/L 02/28/17 09:12 BUN 24 mg/dL (9-20) H 02/28/17 09:12 Creatinine 0.67 mg/dL (0.66-1.25) 02/28/17 09:12 Est GFR (MDRD) Af Amer >60 (>60 ml/min/1.73 sqM) 02/28/17 09:12 Est GFR (MDRD) Non-Af >60 (>60 ml/min/1.73 sqM) 02/28/17 09:12 Glucose 119 mg/dL (74-99) H 02/28/17 09:12 POC Glucose (mg/dL) 121 mg/dL (75-99) H 02/28/17 12:30 POC Glu [employer] Machine T[employer] ID Tressa Teran 02/28/17 12:30 Osmolality 274 mosm/kg (280-301) L 02/18/17 07:26 Plasma Lactic Acid Jason 1.2 mmol/L (0.7-2.0) 02/17/17 07:50 Uric Acid 2.0 mg/dL (3.5-8.5) L 02/19/17 07:36 Calcium 8.1 mg/dL (8.4-10.2) L 02/28/17 09:12 Phosphorus 2.9 mg/dL (2.5-4.5) 02/17/17 07:50 Magnesium 1.6 mg/dL (1.6-2.3) 02/27/17 08:31 Total Bilirubin 0.5 mg/dL (0.2-1.3) 02/18/17 07:26 AST 29 U/L (17-59) 02/18/17 07:26 ALT 43 U/L (21-72) 02/18/17 07:26 Alkaline Phosphatase 52 U/L (38-126) 02/18/17 07:26 Total Creatine Kinase <20 U/L (55-170) L 02/17/17 07:50 CK-MB (CK-2) 0.3 ng/mL (0.0-2.4) 02/17/17 07:50 CK-MB (CK-2) Rel Index 02/17/17 07:50 Troponin I <0.012 ng/mL (0.000-0.034) 02/18/17 12:52 Total Protein 4.1 g/dL (6.3-8.2) L 02/18/17 07:26 Albumin 2.4 g/dL (3.5-5.0) L 02/18/17 07:26 TSH 5.540 mIU/L (0.465-4.680) H 02/19/17 07:36 Free T4 1.20 ng/dL (0.78-2.19) 02/19/17 07:36 Cortisol 18 ug/dL 02/19/17 07:36 Urine Color Yellow 02/17/17 07:50 Urine Appearance Clear (Clear) 02/17/17 07:50 Urine pH 8.0 (5.0-8.0) 02/17/17 07:50 Ur Specific [place] 1.010 (1.001-1.035) 02/17/17 07:50 Urine Protein Trace (Negative) H 02/17/17 07:50 Urine Glucose (UA) Negative (Negative) 02/17/17 07:50 Urine Ketones Negative (Negative) 02/17/17 07:50 Urine Blood Negative (Negative) 02/17/17 07:50 Urine Nitrite Negative (Negative) 02/17/17 07:50 Urine Bilirubin Negative (Negative) 02/17/17 07:50 Urine Urobilinogen <2.0 mg/dL (<2.0) 02/17/17 07:50 Ur Leukocyte Esterase Negative (Negative) 02/17/17 07:50 Urine Osmolality 793 mosm/kg (50-1400) 02/18/17 06:48 Ur Random Creatinine 63.8 mg/dL 02/17/17 07:50 Ur Random Sodium 141 mmol/L (30-90) H 02/18/17 06:48 Ur Random Potassium 43.7 mmol/L 02/17/17 07:50 Ur Random Urea Nitrogn 433.0 mg/dL 02/17/17 07:50 Ur Random Calcium 6.6 mg/dL 02/17/17 07:50 Stool Occult Blood Negative (Negative) 02/24/17 10:50 Vancomycin Trough 18.8 ug/mL 02/26/17 07:53 IgG 226.0 mg/dL (700.0-1600.0) L 02/20/17 07:17 IgA <25.5 mg/dL (60.0-350.0) L 02/20/17 07:17 IgM <16.9 mg/dL (40.0-280.0) L 02/20/17 07:17 Microbiology 02/25/17 22:30 Blood Blood Culture - Preliminary No Growth after 48 hours 02/25/17 22:10 Blood Blood Culture - Preliminary No Growth after 48 hours 02/21/17 12:37 Blood Blood Culture - Final No Growth after 144 hours 02/17/17 14:53 Blood Blood Culture - Final No Growth after 144 hours 02/17/17 14:36 Blood Blood Culture - Final No Growth after 144 hours 02/17/17 07:50 Blood Blood Culture - Final No Growth after 144 hours 02/17/17 22:35 Sputum Gram Stain - Final 02/17/17 22:35 Sputum Sputum Culture - Final Methicillin resist S. aureus 02/17/17 07:50 Urine,Voided Urine Culture - Final 02/17/17 12:02 Sputum Gram Stain - Final 02/17/17 12:02 Sputum Sputum Culture - Final Assessment and Plan (1) Febrile illness, acute Status: Acute (2) Left lower lobe pneumonia Narrative/Plan: 76-year-old male noted infectious disease service for his 2 recent admissions. During the summer he had significant difficulties with the onset difficulty with swallowing and fevers and varicella-zoster. At that time there was concerns that his malignancy had changed. 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 He received Rituxan therapy. Was also noted to have hypogammaglobulinemia and he received IgG therapy. If not clear when his last IgG therapy was given. We have a more recent IgG level that appears to be low at just over 400. Oncology is following and will help determine the need for immunoglobulin replacement therapy at this time. Recent cultures are reviewed and there was evidence of Enterobacter and MRSA in his sputum. sputum revealed only MRSA and will be able to discontinue the Merrem overall improved but low grade temp today. Fortunately blood cultures are negative so far. His discomforts are improving. Nutrition is being given through his tube. His recent varicella-zoster is completely resolved. He is being followed by oncology and until he is well cannot receive further chemotherapy On the he did receive his dose of intravenous immunoglobulin. He hopefully will continue to show ongoing improvement. Fevers have improved . Patient seems to be showing some improvement. Continue current antibiotic therapy. Meropenem was discontinued . As noted the oral cavity exam shows evidence of some herpetic lesions in the posterior pharynx. These may be giving him some of his discomforts. The possibility there may also be causing some of his fever is concerned and Valtrex was started via his PEG tube. Follow up blood cultures requested today the infiltrate on the chest x-ray is markedly improved. If he remains afebrile may complete his vancomycin therapy in 1 days. Hopefully the infection resolves and performance status are high enough for him to proceed. Status: Acute (3) Small B-cell lymphoma Status: Acute
[2017-02-28 17:46] LABS: Glucose,Whole Blood 118 mg/dL (75-99)
[2017-02-28] MEDS ORDERED: WARFARIN 5 MG TAB PO ONE (18:00)
--- NOTE | 2017-02-28 18:47 | PN ---
PROGRESS NOTE DATE OF SERVICE: 02/28/2017 This 76-year-old gentleman was admitted with syncope and dehydration, also had the left lower lobe pneumonia. MRSA grown from the culture. Patient is on broad-spectrum IV antibiotics. PAST MEDICAL HISTORY: Reviewed. REVIEW OF SYSTEMS: CARDIOVASCULAR: As mentioned earlier. RESPIRATORY: As mentioned earlier. GI: No nausea. : No dysuria. NERVOUS SYSTEM: No numbness or weakness. CURRENT MEDICATIONS: Current medications are reviewed and include: 1. Tylenol 500 mg. 2. DuoNeb q.i.d. and p.r.n. 3. Symbicort 160/4.5, 2 puffs b.i.d. 4. Cardizem CD 30 mg p.o. daily. 5. Benadryl 25 mg q.6h p.r.n. 6. Lovenox 40 mg subcu daily. 7. Lasix 20 mg p.o. b.i.d. 8. Synthroid 112 mcg p.o. daily. 9. Ativan 1 mg daily. 10.Multivitamin. 11.Mycostatin. 12.Valtrex. PHYSICAL EXAM: Patient is alert, oriented x3. Pulse 97, blood pressure 141/74, respiration 18, temperature 98 degrees, pulse ox 94% on 4 L. HEENT: Conjunctivae normal. Oral mucosa moist. NECK: No jugular venous distention. No carotid bruit. No lymph node enlargement. CARDIOVASCULAR: S1, S2. No S3, no S4. RESPIRATORY: Breath sounds diminished at the bases. A few scattered rhonchi and crackles. Expiratory wheezing also present. ABDOMEN: Soft, nontender. No mass palpable. LEGS: No edema. No swelling. NERVOUS SYSTEM: Higher function as mentioned. Moves all four limbs. No focal deficits. LYMPHATICS: No lymphadenopathy in the neck, axillae or groin SKIN: No rash, ulcer, bleeding. LAB: WBC 8, hemoglobin 8.3, creatinine is 0.67, INR is 1.8. ASSESSMENT: 1. Syncope possibly secondary to dehydration. 2. Left lower pneumonia with MRSA. 3. Hyponatremia. 4. Fever. 5. Chronic lymphoid leukemia. 6. Chronic obstructive pulmonary disease. 7. Paroxysmal atrial fibrillation. RECOMMENDATION AND DISCUSSION: This 76-year-old gentleman who presented with multiple complex medical issues. We will monitor the patient closely. Continue the current medications. Continue symptomatic treatment. I recommend continue with the bronchodilators and also empiric antibiotics. Monitor coags closely. Otherwise, Infectious Disease is also following the patient closely. Further recommendations to follow. MMODL / IJN: [id number] /
[2017-02-28] MEDS: LORazepam 1 MG TAB PO PRN (22:33)
[2017-03-01 01:27] LABS: Glucose,Whole Blood 122 mg/dL (75-99)
[2017-03-01] MEDS: LEVOTHYROXINE 125 MCG TAB PEG/G-TUBE SCH (06:22)
[2017-03-01 06:32] LABS: Glucose,Whole Blood 128 mg/dL (75-99)
[2017-03-01] MEDS ORDERED: VANCOMYCIN TROUGH DUE 1 EACH MISC MISCELLANE ONE (07:00)
[2017-03-01 07:57] LABS: Anisocytosis Slight; Aty Lym Flag Marked; CH 27.2; CHCM 29.6; HCT 27.5 % (39.0-53.0); HDW 3.09; HGB 8.4 gm/dL (13.0-17.5); Hypochromasia Marked; MCHC 30.3 g/dL (31.0-37.0); MCV 92.2 fL (80.0-100.0); Mean Platelet Volume 8.1; RBC 2.99 m/uL (4.30-5.90); RDW 19.3 % (11.5-15.5); WBC 7.1 k/uL (3.8-10.6); WBC (Perox) 7.35
[2017-03-01 08:15] LABS: Prothrombin Time 19.3 sec (9.0-12.0)
[2017-03-01 08:22] LABS: Anion Gap 3 mmol/L; Blood Urea Nitrogen 22 mg/dL (9-20); Carbon Dioxide 33 mmol/L (22-30); Chloride 93 mmol/L (98-107); Glucose 106 mg/dL (74-99); Non-African American GFR(MDRD) >60 (>60 ml/min/1.73 sqM); Potassium 4.1 mmol/L (3.5-5.1); Sodium 129 mmol/L (137-145)
[2017-03-01 08:33] LABS: Add Differential Manual Differential
[2017-03-01 08:35] LABS: Nucleated Red Blood Cells 0 /100 WBC (0-0); Polychromasia Present; Total Cells Counted 100
[2017-03-01] MEDS: VANCOMYCIN 1,750 MG in SODIUM CHLORIDE 0.9% 250 ML IVPB SCH (08:51)
[2017-03-01] MEDS: FUROSEMIDE 20 MG TAB PO SCH ×2 (08:53→17:09)
[2017-03-01] MEDS: ENOXAPARIN 40 MG/0.4 ML SYRINGE SQ SCH (08:53)
[2017-03-01] MEDS: valACYclovir HCL 1,000 MG TABLET PO SCH ×2 (08:53→19:43)
[2017-03-01] MEDS: DILTIAZEM ORAL 30 MG TAB PO SCH ×4 (08:53→22:06)
[2017-03-01] MEDS: NYSTATIN 100,000 UNIT/ML SUSP 500,000 UNIT/5 ML CUP PO SCH ×4 (08:53→22:06)
[2017-03-01] MEDS: SYMBICORT 160-4.5 MCG INHALER INHALATION SCH ×2 (11:00→20:47)
[2017-03-01] MEDS: MULTIVITAMINS, THERA 1 EACH TAB PEG/G-TUBE SCH (12:47)
[2017-03-01 13:00] LABS: Glucose,Whole Blood 110 mg/dL (75-99)
--- NOTE | 2017-03-01 13:38 | P.PN ---
Subjective Principal diagnosis: sepsis 76-year-old male with a known history of chronic lymphocytic leukemia with not been any therapy up to this December. However that point in time he presented to Hospital feeling poorly. Had severe sore throat difficulty with chewing and swallowing. He was not feeling well. He was hospitalized at that time and treated with antibiotic therapy with concerns to pneumonia and high- grade fever. He also developed an extensive skin rash. Testing at our facility did confirm varicella-zoster which he had treatment for from beginning of his stay in December. Because of his ongoing difficulties with swallowing he was transferred to his oncologist at [facility]. 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 And he was initiated to Rituxan therapy. 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 At this time the patient is still somewhat miserable. He is unaware of the events that occurred that led him to the hospital. He apparently was unconscious when the found him and she was concerned that there was seizure. He constantly was brought to Hospital by EMS. At this time he is sitting up right somewhat comfortable. He is oriented and able to converse although he is quite hard of hearing He was having significant pains earlier and is now more comfortable. His significant abdominal discomforts have improved. He does cough and has had fever does not relate to significant sputum production or hemoptysis. temperature of 100.1 and overall is improved but stll weak. is very anxious to continue chemotherapy. The patient and that with the oncologist this morning. Once the patient is cleared from infection he will then be able to proceed with his next course of chemotherapy. The leg is extremely anxious that his day is coming up in a couple of days. She would like him to stay on track. The oncologist discussed that he needs to be free of infection before his next course of chemotherapy. 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 Remains without fever and overall feels better Objective - Vital Signs Vital signs: Vital Signs Temp 98.7 F 03/01/17 07:00 Pulse 86 03/01/17 07:00 Resp 18 03/01/17 07:00 BP 123/60 03/01/17 07:00 Pulse Ox 95 03/01/17 07:00 Intake & Output 02/28/17 03/01/17 03/01/17 18:59 06:59 18:59 Intake Total 840 870 520 Output Total 675 Balance 840 195 520 Weight 91.5 kg Intake: Tube Feeding 840 780 520 Other 90 Output: Urine 675 Other: Voiding Method Urinal Urinal Urinal # Voids 1 - Exam 76-year-old male who appears older than his stated age. He is weak and ill in appearance relates he has less pain when he tries to swallow was seen by speech pathology and is improving his swallow mechanisms by training with ice cubes. HEENT: Anicteric conjunctiva are pink and moist nasal mucosa grossly intact without significant lesions, there is no thrush. Is noted he had extensive thrush that is now resolved just has some dry oral cavity, evidence of new HSV lesions left posterior pharynx, improving further Neck: The neck is supple without significant lymphadenopathy or thyromegaly. Lungs: Good bilateral air entry there is evidence of a few crackly only at the left base otherwise the chest is quite clear Heart: Regular rate and rhythm with an audible S1-S2, no S3 no S4. There is no significant murmur click or rub, PMI was nondisplaced. Abdomen: Positive bowel sounds soft and nontender without palpable masses or organomegaly. There was no guarding or rebound. PEG tube site is intact Extremities: The upper extremities have excellent pulses they are symmetric, no significant petechiae or telangiectasia. No splinter hemorrhages were noted. The lower extremities are free from significant edema. The peripheral pulses were 2+ and symmetric. Neuro: Awake alert oriented to person and place. Does not exhibit acute gross focal sensory motor deficits at this time - Labs CBC & Chem 7: 03/01/17 07:33 03/01/17 07:33 Labs: Abnormal Lab Results - Last 24 Hours (Table) 02/28/17 02/28/17 02/28/17 Range/Units 13:15 13:20 17:44 RBC 2.98 L (4.30-5.90) m/uL Hgb 8.3 L (13.0-17.5) gm/dL Hct 27.6 L (39.0-53.0) % MCHC 30.1 L (31.0-37.0) g/dL RDW 19.4 H (11.5-15.5) % Plt Count 142 L (150-450) k/uL Neutrophils # (Manual) 1.20 L (1.3-7.7) k/uL Lymphocytes # (Manual) 6.40 H (1.0-4.8) k/uL PT 17.5 H (9.0-12.0) sec INR 1.8 H (<1.2) Sodium (137-145) mmol/L Chloride (98-107) mmol/L Carbon Dioxide (22-30) mmol/L BUN (9-20) mg/dL Glucose (74-99) mg/dL POC Glucose (mg/dL) 118 H (75-99) mg/dL Calcium (8.4-10.2) mg/dL 03/01/17 03/01/17 03/01/17 Range/Units 01:26 06:30 07:33 RBC (4.30-5.90) m/uL Hgb (13.0-17.5) gm/dL Hct (39.0-53.0) % MCHC (31.0-37.0) g/dL RDW (11.5-15.5) % Plt Count (150-450) k/uL Neutrophils # (Manual) (1.3-7.7) k/uL Lymphocytes # (Manual) (1.0-4.8) k/uL PT 19.3 H (9.0-12.0) sec INR 2.0 H (<1.2) Sodium (137-145) mmol/L Chloride (98-107) mmol/L Carbon Dioxide (22-30) mmol/L BUN (9-20) mg/dL Glucose (74-99) mg/dL POC Glucose (mg/dL) 122 H 128 H (75-99) mg/dL Calcium (8.4-10.2) mg/dL 03/01/17 03/01/17 03/01/17 Range/Units 07:33 07:33 12:58 RBC 2.99 L (4.30-5.90) m/uL Hgb 8.4 L (13.0-17.5) gm/dL Hct 27.5 L (39.0-53.0) % MCHC 30.3 L (31.0-37.0) g/dL RDW 19.3 H (11.5-15.5) % Plt Count 149 L (150-450) k/uL Neutrophils # (Manual) 0.99 L (1.3-7.7) k/uL Lymphocytes # (Manual) 5.47 H (1.0-4.8) k/uL PT (9.0-12.0) sec INR (<1.2) Sodium 129 L (137-145) mmol/L Chloride 93 L (98-107) mmol/L Carbon Dioxide 33 H (22-30) mmol/L BUN 22 H (9-20) mg/dL Glucose 106 H (74-99) mg/dL POC Glucose (mg/dL) 110 H (75-99) mg/dL Calcium 8.0 L (8.4-10.2) mg/dL Microbiology - Last 24 Hours (Table) 02/25/17 22:30 Blood Culture - Preliminary Blood No Growth after 72 hours 02/25/17 22:10 Blood Culture - Preliminary Blood No Growth after 72 hours Laboratory Results WBC 7.1 k/uL (3.8-10.6) 03/01/17 07:33 RBC 2.99 m/uL (4.30-5.90) L 03/01/17 07:33 Hgb 8.4 gm/dL (13.0-17.5) L 03/01/17 07:33 Hct 27.5 % (39.0-53.0) L 03/01/17 07:33 MCV 92.2 fL (80.0-100.0) 03/01/17 07:33 MCH 28.0 pg (25.0-35.0) 03/01/17 07:33 MCHC 30.3 g/dL (31.0-37.0) L 03/01/17 07:33 RDW 19.3 % (11.5-15.5) H 03/01/17 07:33 Plt Count 149 k/uL (150-450) L 03/01/17 07:33 Neutrophils % (Manual) 14 % 03/01/17 07:33 Band Neutrophils % 1 % 02/28/17 13:20 Lymphocytes % (Manual) 77 % 03/01/17 07:33 Monocytes % (Manual) 9 % 03/01/17 07:33 Eosinophils % (Manual) 2 % 02/26/17 07:53 Neutrophils # (Manual) 0.99 k/uL (1.3-7.7) L 03/01/17 07:33 Lymphocytes # (Manual) 5.47 k/uL (1.0-4.8) H 03/01/17 07:33 Monocytes # (Manual) 0.64 k/uL (0-1.0) 03/01/17 07:33 Eosinophils # (Manual) 0.11 k/uL (0-0.7) 02/26/17 07:53 Nucleated RBCs 0 /100 WBC (0-0) 03/01/17 07:33 Manual Slide Review Performed 02/26/17 07:53 Polychromasia Present 03/01/17 07:33 Hypochromasia Marked 03/01/17 07:33 Poikilocytosis (manual Present 02/26/17 07:53 Anisocytosis Slight 03/01/17 07:33 Macrocytosis Slight 02/19/17 07:36 Ovalocytes Present 02/24/17 07:45 PT 19.3 sec (9.0-12.0) H 03/01/17 07:33 INR 2.0 (<1.2) H 03/01/17 07:33 APTT 27.6 sec (22.0-30.0) 02/17/17 07:50 Sodium 129 mmol/L (137-145) L 03/01/17 07:33 Potassium 4.1 mmol/L (3.5-5.1) 03/01/17 07:33 Chloride 93 mmol/L (98-107) L 03/01/17 07:33 Carbon Dioxide 33 mmol/L (22-30) H 03/01/17 07:33 Anion Gap 3 mmol/L 03/01/17 07:33 BUN 22 mg/dL (9-20) H 03/01/17 07:33 Creatinine 0.66 mg/dL (0.66-1.25) 03/01/17 07:33 Est GFR (MDRD) Af Amer >60 (>60 ml/min/1.73 sqM) 03/01/17 07:33 Est GFR (MDRD) Non-Af >60 (>60 ml/min/1.73 sqM) 03/01/17 07:33 Glucose 106 mg/dL (74-99) H 03/01/17 07:33 POC Glucose (mg/dL) 110 mg/dL (75-99) H 03/01/17 12:58 POC Glu Chipper Operator ID Tressa Teran 03/01/17 12:58 Osmolality 274 mosm/kg (280-301) L 02/18/17 07:26 Plasma Lactic Acid Jason 1.2 mmol/L (0.7-2.0) 02/17/17 07:50 Uric Acid 2.0 mg/dL (3.5-8.5) L 02/19/17 07:36 Calcium 8.0 mg/dL (8.4-10.2) L 03/01/17 07:33 Phosphorus 2.9 mg/dL (2.5-4.5) 02/17/17 07:50 Magnesium 1.6 mg/dL (1.6-2.3) 02/27/17 08:31 Total Bilirubin 0.5 mg/dL (0.2-1.3) 02/18/17 07:26 AST 29 U/L (17-59) 02/18/17 07:26 ALT 43 U/L (21-72) 02/18/17 07:26 Alkaline Phosphatase 52 U/L (38-126) 02/18/17 07:26 Total Creatine Kinase <20 U/L (55-170) L 02/17/17 07:50 CK-MB (CK-2) 0.3 ng/mL (0.0-2.4) 02/17/17 07:50 CK-MB (CK-2) Rel Index 02/17/17 07:50 Troponin I <0.012 ng/mL (0.000-0.034) 02/18/17 12:52 Total Protein 4.1 g/dL (6.3-8.2) L 02/18/17 07:26 Albumin 2.4 g/dL (3.5-5.0) L 02/18/17 07:26 TSH 5.540 mIU/L (0.465-4.680) H 02/19/17 07:36 Free T4 1.20 ng/dL (0.78-2.19) 02/19/17 07:36 Cortisol 18 ug/dL 02/19/17 07:36 Urine Color Yellow 02/17/17 07:50 Urine Appearance Clear (Clear) 02/17/17 07:50 Urine pH 8.0 (5.0-8.0) 02/17/17 07:50 Ur Specific [place] 1.010 (1.001-1.035) 02/17/17 07:50 Urine Protein Trace (Negative) H 02/17/17 07:50 Urine Glucose (UA) Negative (Negative) 02/17/17 07:50 Urine Ketones Negative (Negative) 02/17/17 07:50 Urine Blood Negative (Negative) 02/17/17 07:50 Urine Nitrite Negative (Negative) 02/17/17 07:50 Urine Bilirubin Negative (Negative) 02/17/17 07:50 Urine Urobilinogen <2.0 mg/dL (<2.0) 02/17/17 07:50 Ur Leukocyte Esterase Negative (Negative) 02/17/17 07:50 Urine Osmolality 793 mosm/kg (50-1400) 02/18/17 06:48 Ur Random Creatinine 63.8 mg/dL 02/17/17 07:50 Ur Random Sodium 141 mmol/L (30-90) H 02/18/17 06:48 Ur Random Potassium 43.7 mmol/L 02/17/17 07:50 Ur Random Urea Nitrogn 433.0 mg/dL 02/17/17 07:50 Ur Random Calcium 6.6 mg/dL 02/17/17 07:50 Stool Occult Blood Negative (Negative) 02/24/17 10:50 Vancomycin Trough 20.4 ug/mL 03/01/17 07:33 IgG 226.0 mg/dL (700.0-1600.0) L 02/20/17 07:17 IgA <25.5 mg/dL (60.0-350.0) L 02/20/17 07:17 IgM <16.9 mg/dL (40.0-280.0) L 02/20/17 07:17 Microbiology 02/25/17 22:30 Blood Blood Culture - Preliminary No Growth after 72 hours 02/25/17 22:10 Blood Blood Culture - Preliminary No Growth after 72 hours 02/21/17 12:37 Blood Blood Culture - Final No Growth after 144 hours 02/17/17 14:53 Blood Blood Culture - Final No Growth after 144 hours 02/17/17 14:36 Blood Blood Culture - Final No Growth after 144 hours 02/17/17 07:50 Blood Blood Culture - Final No Growth after 144 hours 02/17/17 22:35 Sputum Gram Stain - Final 02/17/17 22:35 Sputum Sputum Culture - Final Methicillin resist S. aureus 02/17/17 07:50 Urine,Voided Urine Culture - Final 02/17/17 12:02 Sputum Gram Stain - Final 02/17/17 12:02 Sputum Sputum Culture - Final Assessment and Plan (1) Febrile illness, acute Status: Acute (2) Left lower lobe pneumonia Narrative/Plan: 76-year-old male noted infectious disease service for his 2 recent admissions. During the summer he had significant difficulties with the onset difficulty with swallowing and fevers and varicella-zoster. At that time there was concerns that his malignancy had changed. 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 He received Rituxan therapy. Was also noted to have hypogammaglobulinemia and he received IgG therapy. If not clear when his last IgG therapy was given. We have a more recent IgG level that appears to be low at just over 400. Oncology is following and will help determine the need for immunoglobulin replacement therapy at this time. Recent cultures are reviewed and there was evidence of Enterobacter and MRSA in his sputum. Current sputum sputum revealed only MRSA Fortunately blood cultures are negative so far. His discomforts are improving. Nutrition is being given through his tube. His recent varicella-zoster is completely resolved. He is being followed by oncology and until he is well cannot receive further chemotherapy On the he did receive his dose of intravenous immunoglobulin. We'll need to follow with hematology oncology in the outpatient setting to see if he needs ongoing supplementation. He hopefully will continue to show ongoing improvement. Fevers have improved . Patient seems to be showing some improvement. Continue current antibiotic therapy. Merem was discontinued . As noted the oral cavity exam shows evidence of some herpetic lesions in the posterior pharynx. These may be giving him some of his discomforts. The possibility there may also be causing some of his fever is concerned and Valtrex was started via his PEG tube. And now has significant improvement. Would complete 5 days of therapy. Follow up blood cultures requested today the infiltrate on the chest x-ray is markedly improved. If he remains afebrile may complete his vancomycin therapy today and plan discharge tomorrow. Hopefully the infection resolves and performance status are high enough for him to proceed. Status: Acute (3) Small B-cell lymphoma Status: Acute
[2017-03-01 17:48] LABS: Glucose,Whole Blood 116 mg/dL (75-99)
[2017-03-01] MEDS ORDERED: WARFARIN 5 MG TAB PO ONE (18:00)
[2017-03-01] MEDS: VANCOMYCIN 1,500 MG in SODIUM CHLORIDE 0.9% 250 ML IVPB SCH (19:52)
--- NOTE | 2017-03-01 20:36 | PN ---
PROGRESS NOTE DATE OF SERVICE: 03/01/2017 INTERVAL HISTORY: This 76-year-old gentleman who was admitted with syncope and dehydration also had left lower pneumonia and MRSA grown from the culture. The patient is on broad spectrum IV antibiotics. The patient also had chronic lymphoid leukemia. No chest pain. No palpitations. No fever. REVIEW OF SYSTEMS: CARDIOVASCULAR: No angina. RESPIRATORY: As mentioned. GI: As mentioned. : No dysuria. NERVOUS SYSTEM: As mentioned earlier. CURRENT MEDICATIONS: Current medications reviewed and include: 1. Tylenol 500 mg q.6 p.r.n. 2. DuoNeb q.i.d. and p.r.n. 3. Symbicort b.i.d. 4. Cardizem 30 t.i.d. 5. Lovenox 40 daily. 6. Lasix 20 mg p.o. daily. 7. Motrin. 8. Ativan. 9. Multivitamin. 10.Valtrex. EXAM: Alert, oriented x3. Pulse 88, blood pressure 112/80, respiratory 20, temperature 98.2, pulse ox 94% on 2 L. HEENT: Conjunctivae normal. Oral mucosa moist. NECK: No jugular venous distention. No carotid bruit. No lymph node enlargement. CARDIOVASCULAR: S1, S2. No S3, no S4. RESPIRATORY: Breath sounds diminished at the bases. A few scattered rhonchi and crackles. ABDOMEN: Soft, nontender. No mass palpable. LEGS: Minimal edema. NERVOUS SYSTEM: Diffusely weak. LAB STUDIES: WBC 7.9, hematocrit is 8.4, sodium is 129. ASSESSMENT: 1. Syncope possibly secondary to dehydration. 2. Left lower pneumonia with MRSA. 3. Hypernatremia. 4. Fever. 5. Chronic lymphoid leukemia. 6. Chronic obstructive pulmonary disease. 7. Paroxysmal atrial fibrillation. 8. Gait dysfunction. 9. Status post PEG tube placement. RECOMMENDATIONS AND DISCUSSION: I recommend to continue current medications, continue symptomatic treatment. Otherwise at this time I would recommend continued broad-spectrum IV antibiotics. I also recommended the patient to follow closely with case management and as well as social services manager for the possibility of possible bed at home because of the high risk of aspiration and multiple complications the patient is having at this time. Tube feeds have been changed. Prognosis guarded. Discussed with who understands and agrees. Further recommendations to follow. See orders for details. Overall prognosis guarded. Further recommendations to follow. MMODL / IJN: [id number] /
--- NOTE | 2017-03-01 21:37 | PN ---
PROGRESS NOTE The patient is seen for followup for hyponatremia. His serum sodium has been staying at about 131-129 mEq/L. 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 The patient is maintained on fluid restriction. He denies any significant complaints today. EXAMINATION: Blood pressure is 112/58, heart rate 86 per minute. Patient is afebrile. Examination of the heart S1, S2. Examination lungs bilateral breath sounds are heard. Abdomen is soft, nontender. Examination lower extremity shows no evidence of edema. HYGIENE COORDINATOR exam is grossly intact. LABS: Sodium 129, potassium 4.1, serum creatinine 0.6, hemoglobin 8.4 g/dL. ASSESSMENT: 1. 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 Will continue to maintain patient on fluid restriction. He is maintained on low-dose Lasix as well which we can continue. Repeat labs in a.m. 2. Chronic lymphocytic leukemia, not on treatment. 3. Chronic obstructive pulmonary disease. 4. Chronic atrial fibrillation, maintained on Coumadin. PLAN: Continue with Lasix. Repeat labs in a.m. and maintain fluid restriction as well. MMODL / IJN: [id number] /
[2017-03-01] MEDS: LORazepam 1 MG TAB PO PRN (22:06)
[2017-03-02 00:32] LABS: Glucose,Whole Blood 117 mg/dL (75-99)
[2017-03-02] MEDS: LEVOTHYROXINE 125 MCG TAB PEG/G-TUBE SCH (06:01)
[2017-03-02] MEDS: ACETAMINOPHEN TAB 325 MG TAB PO PRN (06:01)
[2017-03-02 06:21] LABS: Glucose,Whole Blood 119 mg/dL (75-99)
[2017-03-02] MEDS: SYMBICORT 160-4.5 MCG INHALER INHALATION SCH ×2 (07:52→19:43)
[2017-03-02] MEDS: VANCOMYCIN 1,500 MG in SODIUM CHLORIDE 0.9% 250 ML IVPB SCH ×2 (08:57→20:06)
[2017-03-02 09:09] LABS: INR 2.4 (<1.2); Prothrombin Time 23.3 sec (9.0-12.0)
[2017-03-02 09:19] LABS: Anisocytosis Moderate; Aty Lym Flag Marked; CH 27.7; CHCM 30.8; HCT 26.4 % (39.0-53.0); HDW 3.17; HGB 8.1 gm/dL (13.0-17.5); Hypochromasia Moderate; MCH 27.7 pg (25.0-35.0); MCHC 30.6 g/dL (31.0-37.0); MCV 90.5 fL (80.0-100.0); Mean Platelet Volume 8.8; RBC 2.91 m/uL (4.30-5.90); RDW 20.2 % (11.5-15.5); WBC 6.8 k/uL (3.8-10.6); WBC (Perox) 7.05
[2017-03-02 09:24] LABS: Anion Gap 4 mmol/L; Blood Urea Nitrogen 23 mg/dL (9-20); Carbon Dioxide 31 mmol/L (22-30); Chloride 95 mmol/L (98-107); Glucose 107 mg/dL (74-99); Non-African American GFR(MDRD) >60 (>60 ml/min/1.73 sqM); Sodium 130 mmol/L (137-145)
--- NOTE | 2017-03-02 09:58 | US ---
EXAMINATION TYPE: US venous doppler duplex LE DATE OF EXAM: 03/02/2017 9:48 AM COMPARISON: NONE CLINICAL HISTORY: swelling. rule out DVT. Bilateral feet swelling. Patient is on coumadin x 1 week f or AFIB SIDE PERFORMED: Bilateral TECHNIQUE: The lower extremity deep venous system is examined utilizing real time linear array sonog kristina with graded compression, doppler sonography and color-flow sonography. VESSELS IMAGED: External Iliac Vein (EIV) Common Femoral Vein Deep Femoral Vein Greater Saphenous Vein * Femoral Vein Popliteal Vein Small Saphenous Vein * Proximal Calf Veins (* superficial vessels) Grayscale, color doppler, spectral doppler imaging performed of the deep veins of the lower extremiti es. There is normal flow, compressibility, vascular waveforms. Right Leg: Negative for DVT Left Leg: Negative for DVT IMPRESSION: No evidence for DVT at this time.
[2017-03-02] MEDS: valACYclovir HCL 1,000 MG TABLET PO SCH ×2 (10:04→22:29)
[2017-03-02] MEDS: NYSTATIN 100,000 UNIT/ML SUSP 500,000 UNIT/5 ML CUP PO SCH ×5 (10:04→22:49)
[2017-03-02] MEDS: ENOXAPARIN 40 MG/0.4 ML SYRINGE SQ SCH (10:04)
[2017-03-02] MEDS: DILTIAZEM ORAL 30 MG TAB PO SCH ×4 (10:05→22:29)
[2017-03-02] MEDS: FUROSEMIDE 20 MG TAB PO SCH ×2 (10:05→16:38)
--- NOTE | 2017-03-02 10:45 | P.PN ---
Subjective Patient is seen in follow-up for hyponatremia. Sodium level is stable at 130. He is currently maintained on tube feeds. Patient is not able to tolerate oral intake due to tumor infiltration and dysphagia. Hemodynamically he is stable. Admits to good urine output. He is currently being treated with IV antibiotics for left lower lobe pneumonia. Sputum culture is positive for MRSA. He is noted to be febrile which has been attributed to CLL. LE edema is improved. Vital signs are stable. General: The patient appeared well nourished and normally developed. HEENT: Head exam is unremarkable. Neck is without jugular venous distension. LUNGS: Lungs are clear to auscultation and percussion. Breath sounds decreased. HEART: Rate and Rhythm are regular. First and second heart sounds normal. No murmurs, rubs or gallops. ABDOMEN: Abdominal exam reveals normal bowel sounds. Non-tender and non- distended. No evidence of peritonitis. EXTREMITITES: Trace edema. Objective - Vital Signs Vital signs: Vital Signs Temp 97.1 F L 03/02/17 07:00 Pulse 67 03/02/17 07:00 Resp 20 03/02/17 07:00 BP 147/69 03/02/17 07:00 Pulse Ox 100 03/02/17 07:00 Intake & Output 03/01/17 03/02/17 03/02/17 18:59 06:59 18:59 Intake Total 780 260 Output Total 500 Balance 780 -240 Weight 92 kg Intake: Tube Feeding 780 260 Output: Urine 500 Other: Voiding Method Urinal Urinal - Labs CBC & Chem 7: 03/02/17 08:12 03/02/17 08:12 Labs: Abnormal Lab Results - Last 24 Hours (Table) 03/01/17 03/01/17 03/02/17 Range/Units 12:58 17:44 00:08 RBC (4.30-5.90) m/uL Hgb (13.0-17.5) gm/dL Hct (39.0-53.0) % MCHC (31.0-37.0) g/dL RDW (11.5-15.5) % PT (9.0-12.0) sec INR (<1.2) Sodium (137-145) mmol/L Chloride (98-107) mmol/L Carbon Dioxide (22-30) mmol/L BUN (9-20) mg/dL Glucose (74-99) mg/dL POC Glucose (mg/dL) 110 H 116 H 117 H (75-99) mg/dL Calcium (8.4-10.2) mg/dL 03/02/17 03/02/17 03/02/17 Range/Units 06:01 08:12 08:12 RBC 2.91 L (4.30-5.90) m/uL Hgb 8.1 L (13.0-17.5) gm/dL Hct 26.4 L (39.0-53.0) % MCHC 30.6 L (31.0-37.0) g/dL RDW 20.2 H (11.5-15.5) % PT 23.3 H (9.0-12.0) sec INR 2.4 H (<1.2) Sodium (137-145) mmol/L Chloride (98-107) mmol/L Carbon Dioxide (22-30) mmol/L BUN (9-20) mg/dL Glucose (74-99) mg/dL POC Glucose (mg/dL) 119 H (75-99) mg/dL Calcium (8.4-10.2) mg/dL 03/02/17 Range/Units 08:12 RBC (4.30-5.90) m/uL Hgb (13.0-17.5) gm/dL Hct (39.0-53.0) % MCHC (31.0-37.0) g/dL RDW (11.5-15.5) % PT (9.0-12.0) sec INR (<1.2) Sodium 130 L (137-145) mmol/L Chloride 95 L (98-107) mmol/L Carbon Dioxide 31 H (22-30) mmol/L BUN 23 H (9-20) mg/dL Glucose 107 H (74-99) mg/dL POC Glucose (mg/dL) (75-99) mg/dL Calcium 8.0 L (8.4-10.2) mg/dL Microbiology - Last 24 Hours (Table) 02/25/17 22:30 Blood Culture - Preliminary Blood No Growth after 96 hours 02/25/17 22:10 Blood Culture - Preliminary Blood No Growth after 96 hours Assessment and Plan Plan: Assessment: #1. Hyponatremia. Sodium level stable. Patient was euvolemic due to SIADH from the pneumonia/malignancy. High urine sodium, high urine osmolality and low uric acid also suggestive of SIADH. #2. History of dysphagia status post PEG tube placement maintained on tube feeds. #3. Pneumonia maintained on antibiotics. Infectious disease following. #4. Hypokalemia related to his nutritional status and diuretics. Magnesium a little on the lower side. Improved. #5. CLL, oncology following. Plan: Discontinued normal saline. Maintain tube feeds. Continue Lasix to 20 mg twice daily. Discontinue salt tabs. Further decreased free water to 30 mL every 6 hours. Patient will need to get a repeat basic metabolic panel checked within 2-3 days of discharge to make sure electrolytes are stable and follow-up as an outpatient in the next 1-2 weeks.
[2017-03-02 10:47] LABS: Add Differential Manual Differential
[2017-03-02 10:49] LABS: Manual Review Performed; Nucleated Red Blood Cells 0 /100 WBC (0-0); Total Cells Counted 100
[2017-03-02 12:21] LABS: Glucose,Whole Blood 115 mg/dL (75-99)
[2017-03-02] MEDS: MULTIVITAMINS, THERA 1 EACH TAB PEG/G-TUBE SCH (13:28)
--- NOTE | 2017-03-02 15:32 | P.PN ---
Subjective . Personal being dictated for Dr. Anders Interval history: This is a 76-year-old male who we saw yesterday in consultation. 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 02/20/2017 sodium 131, normal saline discontinued. Continues on tube feeds with minimal to no residuals. Denies abdominal pain, no nausea, no vomiting. Breathing improving .Remains febrile, T-max in 100. Sputum currently reporting presumptive staph. Maintained on vancomycin and Merrem as per infectious disease. IVIG infusions ordered, IgG in the 200s. Denies chest pain, palpitations or increasing shortness of breath. 02/23/2017. Sputum culture positive for MRSA, continue on antibiotics as per ID. Evaluated by speech therapy today with recommendations noted. Afebrile, T- max 102.9. Oncology family meeting in a.m. no nausea or emesis this morning.. Sodium 128. 02/24/2017. Awaiting oncology family meeting this morning. T-max 101. Antibiotics continue as per infectious disease. Sodium 131. Denies chest pain, palpitations or increasing shortness of breath. 2216. Preparing significantly improved. T-max 99.1. Maintained on IV vancomycin as per infectious disease. Most recent sodium 130, oral sodium discontinued. INR 1.7. Denies chest pain, palpitations or increasing shortness of breath. 03/02/2017 tolerating tube feeds of vital 1.2 at 65 MLS per hour. Patient previously had been on Two Alexei HN prior to admission, not tolerating; losing weight loose stools, abdominal discomfort, bloating. Evaluated by dietitian and switched to vital 1.2 . With the change in tube feed patient has gained weight, now with formed stools and no abdominal discomfort . On admission patient weight 86 kg, and now currently up to 92 kg. T-max 100.1 . Antibiotics per infectious disease. Hemoglobin 8.1. Sodium 130. IV fluids and salt tablets discontinued. Free water decreased . Objective - Vital Signs Vital signs: Vital Signs Temp 97.1 F L 03/02/17 07:00 Pulse 84 03/02/17 13:23 Resp 20 03/02/17 08:00 BP 102/59 03/02/17 13:23 Pulse Ox 100 03/02/17 07:00 Intake & Output 03/01/17 03/02/17 03/02/17 18:59 06:59 18:59 Intake Total 780 260 260 Output Total 500 Balance 780 -240 260 Weight 92 kg Intake: Tube Feeding 780 260 260 Output: Urine 500 Other: Voiding Method Urinal Urinal Urinal - Exam PHYSICAL EXAM: VITAL SIGNS: [As above] GENERAL: Sitting up in bed, no acute distress HEENT: Conjunctivae normal. eyes normal. Oral mucosa moist. NECK: No JVD. No thyroid enlargement. CARDIOVASCULAR: S1, S2 muffled. No murmurs, rubs or gallops RESPIRATION: Bilateral bases diminished, no wheezing, no crackles, occasional rhonchi ABDOMEN: Soft, nontender . Nondistended, no masses palpable. PEG tube present, positive Bowel sounds. No guarding, no rigidity LEGS: Improving, trace edema. no swelling. PSYCHIATRY: Alert and oriented -3, mood and affect normal. 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 Diffuse weakness. No new focal deficits. No sensory deficit. Skin: no ulcer no rash. Microbiology 02/25/17 22:30 Blood Blood Culture - Preliminary No Growth after 96 hours 02/25/17 22:10 Blood Blood Culture - Preliminary No Growth after 96 hours 02/21/17 12:37 Blood Blood Culture - Final No Growth after 144 hours 02/17/17 14:53 Blood Blood Culture - Final No Growth after 144 hours 02/17/17 14:36 Blood Blood Culture - Final No Growth after 144 hours 02/17/17 07:50 Blood Blood Culture - Final No Growth after 144 hours 02/17/17 22:35 Sputum Gram Stain - Final 02/17/17 22:35 Sputum Sputum Culture - Final Methicillin resist S. aureus 02/17/17 07:50 Urine,Voided Urine Culture - Final 02/17/17 12:02 Sputum Gram Stain - Final 02/17/17 12:02 Sputum Sputum Culture - Final - Labs CBC & Chem 7: 03/02/17 08:12 03/02/17 08:12 Labs: Abnormal Lab Results - Last 24 Hours (Table) 03/01/17 03/02/17 03/02/17 Range/Units 17:44 00:08 06:01 RBC (4.30-5.90) m/uL Hgb (13.0-17.5) gm/dL Hct (39.0-53.0) % MCHC (31.0-37.0) g/dL RDW (11.5-15.5) % Neutrophils # (Manual) (1.3-7.7) k/uL Lymphocytes # (Manual) (1.0-4.8) k/uL PT (9.0-12.0) sec INR (<1.2) Sodium (137-145) mmol/L Chloride (98-107) mmol/L Carbon Dioxide (22-30) mmol/L BUN (9-20) mg/dL Glucose (74-99) mg/dL POC Glucose (mg/dL) 116 H 117 H 119 H (75-99) mg/dL Calcium (8.4-10.2) mg/dL 03/02/17 03/02/17 03/02/17 Range/Units 08:12 08:12 08:12 RBC 2.91 L (4.30-5.90) m/uL Hgb 8.1 L (13.0-17.5) gm/dL Hct 26.4 L (39.0-53.0) % MCHC 30.6 L (31.0-37.0) g/dL RDW 20.2 H (11.5-15.5) % Neutrophils # (Manual) 1.09 L (1.3-7.7) k/uL Lymphocytes # (Manual) 5.10 H (1.0-4.8) k/uL PT 23.3 H (9.0-12.0) sec INR 2.4 H (<1.2) Sodium 130 L (137-145) mmol/L Chloride 95 L (98-107) mmol/L Carbon Dioxide 31 H (22-30) mmol/L BUN 23 H (9-20) mg/dL Glucose 107 H (74-99) mg/dL POC Glucose (mg/dL) (75-99) mg/dL Calcium 8.0 L (8.4-10.2) mg/dL 03/02/17 Range/Units 12:06 RBC (4.30-5.90) m/uL Hgb (13.0-17.5) gm/dL Hct (39.0-53.0) % MCHC (31.0-37.0) g/dL RDW (11.5-15.5) % Neutrophils # (Manual) (1.3-7.7) k/uL Lymphocytes # (Manual) (1.0-4.8) k/uL PT (9.0-12.0) sec INR (<1.2) Sodium (137-145) mmol/L Chloride (98-107) mmol/L Carbon Dioxide (22-30) mmol/L BUN (9-20) mg/dL Glucose (74-99) mg/dL POC Glucose (mg/dL) 115 H (75-99) mg/dL Calcium (8.4-10.2) mg/dL Microbiology - Last 24 Hours (Table) 02/25/17 22:30 Blood Culture - Preliminary Blood No Growth after 96 hours 02/25/17 22:10 Blood Culture - Preliminary Blood No Growth after 96 hours Assessment and Plan Plan: Syncope, likely secondary to dehydration with hyponatremia/SIADH, fevers. Possible left lower lobe pneumonia versus atelectasis, presumptive staph currently in sputum; recent cultures of MRSA and Enterobacter [place]i. Sputum culture positive for MRSA. Hyponatremia, possibly related to SIADH related to pneumonia,malignancy. 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 Maintain Lasix.. Changes per nephrology noted. Discharge planning in progress. Antibiotics as per infectious disease. Case management to arrange anebulizer, tube feed -new.Antibiotics as per infectious disease. Further recommendations to follow.. The impression and plan of care has been dictated as directed as a scribe. : I performed a H&P examination of this patient and discussed the same with the dictator. I agree with the dictator's note. Any additional findings/opinions/ etc. will be noted.
--- NOTE | 2017-03-02 16:53 | P.PN ---
Subjective Principal diagnosis: Left lower lobe pneumonia. Sputum culture positive for MRSA. 76-year-old male patient is very well-known to me. Unfortunately patient had a prolonged and complicated course of CLL. Note that the patient was in a good state of health until approximately 3 months ago when he started having infectious complications. 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 As such the patient has a PEG tube for enteral feeding and nutritional support and his periodically being evaluated by the swallow pathologist for his ability to eat orally. Currently is on enteral feeding via a PEG tube. Is also known to have COPD, hypothyroidism, atrial fibrillation as comorbid conditions This patient was recently in the hospital. He was treated and he was discharged to go home where he was being taken care of by his . The patient came into the hospital because of syncopal episodes probably related to dehydration and orthostasis. At the same time he was hyponatremic and the possibility of left lower lobe pneumonia was also entertained 9 that there was a new consolidation of the left lung base. His sputum showed MRSA and make and the patient was started on vancomycin. He is also meropenem. He is currently receiving antibiotics without any major complications or side effects. He still has a congested cough unable to bring up much of sputum. He does have a decent coughing reflex. No respiratory distress. No hemoptysis no pleurisy. No chest pain. No altered mentation. On and off is still having fever the most recent of which was yesterday for which the patient was given IV Tylenol.. He is being followed up by infectious disease. He is also on long-term anticoagulation with warfarin regarding his atrial fibrillation. INR is subtherapeutic at this point. On 02/24/2017 the patient seen in follow-up for left lower lobe pneumonia, sputum positive for MRSA, Fletcher's palsy, difficulty swallowing, episodic fever secondary to CLL, and hyponatremia. Patient's spouse as it is at the bedside. Patient has been participating with the physical therapy, ambulating in hallway. Patient and the spouse both verbalize improvement in overall clinical status. Patient denies any specific restrictive complaints, maintains oxygen saturations in the 93-94% range on 4 L per nasal cannula. Speech therapist is on consult and will reevaluate the swallowing ability today. Patient will call will continue with tube feedings via the PEG tube, states she tolerates it well. Continues with intermittent febrile episodes, treated with acetaminophen. Lung sounds-a few scattered rales at the bases of the lungs. Nephrology increased Lasix to twice a day yesterday, improvement in the bilateral lower extremity edema has been noted. Today's serum sodium is 131 and it is improved from 128 on 02/23/2017. On 02/25/2017 I see this patient quite awake and alert and he is interactive. He is not having any major stroke difficulties. He is coughing up mucus. He has MRSA in the sputum and MRSA pneumonia suspected and patient is currently on IV vancomycin. A total duration of antibiotics is not determined although I suspect the patient will need somewhere between 10-14 days. No fever. No chills. PEG tube site is clean. The patient is still receiving enteral feeding for nutritional support. The patient is using the appropriate hearing aids and he is able to communicate better. No significant weakness at this point as the patient is doing daily walking. No fever. No chills. The patient is on long-term anticoagulation regarding his atrial fibrillation and INR from today subtherapeutic and further adjustments will be done accordingly. 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 On the patient is doing well and has no specific complaints. He continues to improve. No fever. No chills. Receiving enteral feeding for nutritional support. No reported aspiration. He feels stronger. ID is on the case and in the process of discharging this patient. On 02/27/2017 the patient is being seen in follow-up. No specific complaints. The patient is afebrile. The patient on IV vancomycin. Sodium level is at 130. INR is at 1.7. Tolerating enteral feeding for nutritional support. Resting comfortably in bed. On 02/28/2017 the patient remains essentially the same. The patient is essentially the hospital to comlete his vancomycin course. His resting comfortably in bed. Sodium level is up to 131. Hemoglobin is at 8.3. No fever or chills. INR is up to 1.8. Hemodynamically stable. 03/02/2017 the patient continues with no respiratory complaints. No episodes of fever. Denies chest congestion, dyspnea, or cough. Maintain on 4 L oxygen per nasal cannula, no chills, no headaches. Patient has completed a course of vancomycin and Valtrex antibiotics. Discharge planning arranging tube feedings at home. Speech therapy is following with the patient, no plans to repeat barium swallow until after the next round of chemo. Patient continues with ambulation in the hallway a few times a day. Objective - Vital Signs Vital signs: Vital Signs Temp 97.1 F L 03/02/17 07:00 Pulse 84 03/02/17 15:48 Resp 20 03/02/17 15:48 BP 102/59 03/02/17 13:23 Pulse Ox 100 03/02/17 07:00 Intake & Output 03/01/17 03/02/17 03/02/17 18:59 06:59 18:59 Intake Total 780 260 260 Output Total 500 Balance 780 -240 260 Weight 92 kg Intake: Tube Feeding 780 260 260 Output: Urine 500 Other: Voiding Method Urinal Urinal Urinal - Exam Head exam was generally normal. There was no scleral icterus or corneal arcus. Mucous membranes were moist. The patient has an obvious facial asymmetry with a left facial droop related to his Fletcher's palsy. Neck was supple and without jugular venous distension, thyromegaly, or carotid bruits. Carotids were easily palpable bilaterally. There was no adenopathy. Lung sounds are diminished in lung bases bilaterally. Few scattered expiratory wheezes. Crackles in lung bases more so on the left. Cardiac exam revealed the PMI to be normally situated and sized. The rhythm was regular and no extrasystoles were noted during several minutes of auscultation. The first and second heart sounds were normal and physiologic splitting of the second heart sound was noted. There were no murmurs, rubs, clicks, or gallops. Abdominal exam revealed normal bowel sounds. The abdomen was soft, non-tender, and without masses, organomegaly, or appreciable enlargement of the abdominal aorta. The PEG tube site is dry clean and intact. No direct tenderness no rebound tenderness. No guarding. Bowel sounds are hypoactive at the present. Examination of the extremities revealed easily palpable radial, femoral and pedal pulses. There was no cyanosis, clubbing or edema. Neurologically the patient has impaired hearing and the patient has an obvious facial palsy involving the left face. Motor function the left upper and left lower oximetry is within normal limits. In fact motor function is symmetric in all 4 extremities. Coughing reflexes present. Swallow reflex is poor. Skeletal exam is within normal limits without any deformities or fractures. Skin exam is within normal without any active rash or skin eruption. Psychiatric exam: Mental status is intact, affect is appropriate. - Labs CBC & Chem 7: 03/02/17 08:12 03/02/17 08:12 Labs: Abnormal Lab Results - Last 24 Hours (Table) 03/01/17 03/02/17 03/02/17 Range/Units 17:44 00:08 06:01 RBC (4.30-5.90) m/uL Hgb (13.0-17.5) gm/dL Hct (39.0-53.0) % MCHC (31.0-37.0) g/dL RDW (11.5-15.5) % Neutrophils # (Manual) (1.3-7.7) k/uL Lymphocytes # (Manual) (1.0-4.8) k/uL PT (9.0-12.0) sec INR (<1.2) Sodium (137-145) mmol/L Chloride (98-107) mmol/L Carbon Dioxide (22-30) mmol/L BUN (9-20) mg/dL Glucose (74-99) mg/dL POC Glucose (mg/dL) 116 H 117 H 119 H (75-99) mg/dL Calcium (8.4-10.2) mg/dL 03/02/17 03/02/17 03/02/17 Range/Units 08:12 08:12 08:12 RBC 2.91 L (4.30-5.90) m/uL Hgb 8.1 L (13.0-17.5) gm/dL Hct 26.4 L (39.0-53.0) % MCHC 30.6 L (31.0-37.0) g/dL RDW 20.2 H (11.5-15.5) % Neutrophils # (Manual) 1.09 L (1.3-7.7) k/uL Lymphocytes # (Manual) 5.10 H (1.0-4.8) k/uL PT 23.3 H (9.0-12.0) sec INR 2.4 H (<1.2) Sodium 130 L (137-145) mmol/L Chloride 95 L (98-107) mmol/L Carbon Dioxide 31 H (22-30) mmol/L BUN 23 H (9-20) mg/dL Glucose 107 H (74-99) mg/dL POC Glucose (mg/dL) (75-99) mg/dL Calcium 8.0 L (8.4-10.2) mg/dL 03/02/17 Range/Units 12:06 RBC (4.30-5.90) m/uL Hgb (13.0-17.5) gm/dL Hct (39.0-53.0) % MCHC (31.0-37.0) g/dL RDW (11.5-15.5) % Neutrophils # (Manual) (1.3-7.7) k/uL Lymphocytes # (Manual) (1.0-4.8) k/uL PT (9.0-12.0) sec INR (<1.2) Sodium (137-145) mmol/L Chloride (98-107) mmol/L Carbon Dioxide (22-30) mmol/L BUN (9-20) mg/dL Glucose (74-99) mg/dL POC Glucose (mg/dL) 115 H (75-99) mg/dL Calcium (8.4-10.2) mg/dL Microbiology - Last 24 Hours (Table) 02/25/17 22:30 Blood Culture - Preliminary Blood No Growth after 96 hours 02/25/17 22:10 Blood Culture - Preliminary Blood No Growth after 96 hours Assessment and Plan Plan: Assessment 1 suspected left lower lobe pneumonia. The patient has a sputum that's positive for MRSA. Improved significantly with antibiotic treatment, patient has completed the course of vancomycin and Valtrex per ID recommendation. 2 episodic fever. Rule out infectious. 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 5 COPD 6 [place] palsy 7 Chickenpox skin eruption that recovered, completed the course of valacyclovir. 8 chronic atrial fibrillation on Coumadin with a therapeutic PT/INR 9 hypothyroidism 10 difficulty with swallowing with CLL involving his throat and upper airways and the patient is currently receiving enteral feeding through PEG tube for nutritional support 11 impaired hearing 12 chronic normocytic anemia 13 hyponatremia, nephrology is on the case, improved Plan Aspiration precautions. Speech therapy is following. Continue enteral feeding for nutritional support. Oncology is on the case regarding further advice for his CLL. Anticipate discharge in next 24 hours once arrangements are in place regarding patient's tube feeding. Stable from respiratory point
[2017-03-02] MEDS ORDERED: WARFARIN 3 MG TAB PO SCH (18:00)
[2017-03-02 18:01] LABS: Glucose,Whole Blood 118 mg/dL (75-99)
--- NOTE | 2017-03-02 21:29 | P.PN ---
Subjective Principal diagnosis: sepsis 76-year-old male with a known history of chronic lymphocytic leukemia with not been any therapy up to this December. However that point in time he presented to Hospital feeling poorly. Had severe sore throat difficulty with chewing and swallowing. He was not feeling well. He was hospitalized at that time and treated with antibiotic therapy with concerns to pneumonia and high- grade fever. He also developed an extensive skin rash. Testing at our facility did confirm varicella-zoster which he had treatment for from beginning of his stay in December. Because of his ongoing difficulties with swallowing he was transferred to his oncologist at [facility]. 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 And he was initiated to Rituxan therapy. 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 At this time the patient is still somewhat miserable. He is unaware of the events that occurred that led him to the hospital. He apparently was unconscious when the found him and she was concerned that there was seizure. He constantly was brought to Hospital by EMS. At this time he is sitting up right somewhat comfortable. He is oriented and able to converse although he is quite hard of hearing He was having significant pains earlier and is now more comfortable. His significant abdominal discomforts have improved. He does cough and has had fever does not relate to significant sputum production or hemoptysis. temperature of 100.1 and overall is improved but stll weak. is very anxious to continue chemotherapy. The patient and that with the oncologist this morning. Once the patient is cleared from infection he will then be able to proceed with his next course of chemotherapy. The leg is extremely anxious that his day is coming up in a couple of days. She would like him to stay on track. The oncologist discussed that he needs to be free of infection before his next course of chemotherapy. 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 Remains without fever, but has had temp of 100.2 and overall feels better Objective - Vital Signs Vital signs: Vital Signs Temp 97.8 F 03/02/17 15:00 Pulse 84 03/02/17 15:48 Resp 20 03/02/17 15:48 BP 110/54 03/02/17 15:00 Pulse Ox 96 03/02/17 15:00 Intake & Output 0903/02/17 03/03/17 06:59 18:59 06:59 Intake Total 260 260 Output Total 500 Balance -240 260 Weight 92 kg Intake: Tube Feeding 260 260 Output: Urine 500 Other: Voiding Method Urinal Urinal - Exam 76-year-old male who appears older than his stated age. He is weak and ill in appearance relates he has less pain when he tries to swallow was seen by speech pathology and is improving his swallow mechanisms by training with ice cubes. HEENT: Anicteric conjunctiva are pink and moist nasal mucosa grossly intact without significant lesions, there is no thrush. Is noted he had extensive thrush that is now resolved just has some dry oral cavity, evidence of new HSV lesions left posterior pharynx, improving further Neck: The neck is supple without significant lymphadenopathy or thyromegaly. Lungs: Good bilateral air entry there is evidence of a few crackly only at the left base otherwise the chest is quite clear Heart: Regular rate and rhythm with an audible S1-S2, no S3 no S4. There is no significant murmur click or rub, PMI was nondisplaced. Abdomen: Positive bowel sounds soft and nontender without palpable masses or organomegaly. There was no guarding or rebound. PEG tube site is intact Extremities: The upper extremities have excellent pulses they are symmetric, no significant petechiae or telangiectasia. No splinter hemorrhages were noted. The lower extremities are free from significant edema. The peripheral pulses were 2+ and symmetric. Neuro: Awake alert oriented to person and place. Does not exhibit acute gross focal sensory motor deficits at this time - Labs CBC & Chem 7: 03/02/17 08:12 03/02/17 08:12 Labs: Abnormal Lab Results - Last 24 Hours (Table) 03/02/17 03/02/17 03/02/17 Range/Units 00:08 06:01 08:12 RBC (4.30-5.90) m/uL Hgb (13.0-17.5) gm/dL Hct (39.0-53.0) % MCHC (31.0-37.0) g/dL RDW (11.5-15.5) % Neutrophils # (Manual) (1.3-7.7) k/uL Lymphocytes # (Manual) (1.0-4.8) k/uL PT 23.3 H (9.0-12.0) sec INR 2.4 H (<1.2) Sodium (137-145) mmol/L Chloride (98-107) mmol/L Carbon Dioxide (22-30) mmol/L BUN (9-20) mg/dL Glucose (74-99) mg/dL POC Glucose (mg/dL) 117 H 119 H (75-99) mg/dL Calcium (8.4-10.2) mg/dL 03/02/17 03/02/17 03/02/17 Range/Units 08:12 08:12 12:06 RBC 2.91 L (4.30-5.90) m/uL Hgb 8.1 L (13.0-17.5) gm/dL Hct 26.4 L (39.0-53.0) % MCHC 30.6 L (31.0-37.0) g/dL RDW 20.2 H (11.5-15.5) % Neutrophils # (Manual) 1.09 L (1.3-7.7) k/uL Lymphocytes # (Manual) 5.10 H (1.0-4.8) k/uL PT (9.0-12.0) sec INR (<1.2) Sodium 130 L (137-145) mmol/L Chloride 95 L (98-107) mmol/L Carbon Dioxide 31 H (22-30) mmol/L BUN 23 H (9-20) mg/dL Glucose 107 H (74-99) mg/dL POC Glucose (mg/dL) 115 H (75-99) mg/dL Calcium 8.0 L (8.4-10.2) mg/dL 03/02/17 Range/Units 17:59 RBC (4.30-5.90) m/uL Hgb (13.0-17.5) gm/dL Hct (39.0-53.0) % MCHC (31.0-37.0) g/dL RDW (11.5-15.5) % Neutrophils # (Manual) (1.3-7.7) k/uL Lymphocytes # (Manual) (1.0-4.8) k/uL PT (9.0-12.0) sec INR (<1.2) Sodium (137-145) mmol/L Chloride (98-107) mmol/L Carbon Dioxide (22-30) mmol/L BUN (9-20) mg/dL Glucose (74-99) mg/dL POC Glucose (mg/dL) 118 H (75-99) mg/dL Calcium (8.4-10.2) mg/dL Microbiology - Last 24 Hours (Table) 02/25/17 22:30 Blood Culture - Preliminary Blood No Growth after 96 hours 02/25/17 22:10 Blood Culture - Preliminary Blood No Growth after 96 hours Laboratory Results WBC 6.8 k/uL (3.8-10.6) 03/02/17 08:12 RBC 2.91 m/uL (4.30-5.90) L 03/02/17 08:12 Hgb 8.1 gm/dL (13.0-17.5) L 03/02/17 08:12 Hct 26.4 % (39.0-53.0) L 03/02/17 08:12 MCV 90.5 fL (80.0-100.0) 03/02/17 08:12 MCH 27.7 pg (25.0-35.0) 03/02/17 08:12 MCHC 30.6 g/dL (31.0-37.0) L 03/02/17 08:12 RDW 20.2 % (11.5-15.5) H 03/02/17 08:12 Plt Count 170 k/uL (150-450) 03/02/17 08:12 Neutrophils % (Manual) 16 % 03/02/17 08:12 Band Neutrophils % 1 % 02/28/17 13:20 Lymphocytes % (Manual) 75 % 03/02/17 08:12 Monocytes % (Manual) 9 % 03/02/17 08:12 Eosinophils % (Manual) 2 % 02/26/17 07:53 Neutrophils # (Manual) 1.09 k/uL (1.3-7.7) L 03/02/17 08:12 Lymphocytes # (Manual) 5.10 k/uL (1.0-4.8) H 03/02/17 08:12 Monocytes # (Manual) 0.61 k/uL (0-1.0) 03/02/17 08:12 Eosinophils # (Manual) 0.11 k/uL (0-0.7) 02/26/17 07:53 Nucleated RBCs 0 /100 WBC (0-0) 03/02/17 08:12 Manual Slide Review Performed 03/02/17 08:12 Polychromasia Present 03/01/17 07:33 Hypochromasia Moderate 03/02/17 08:12 Poikilocytosis (manual Present 03/02/17 08:12 Anisocytosis Moderate 03/02/17 08:12 Macrocytosis Slight 02/19/17 07:36 Ovalocytes Present 02/24/17 07:45 PT 23.3 sec (9.0-12.0) H 03/02/17 08:12 INR 2.4 (<1.2) H 03/02/17 08:12 APTT 27.6 sec (22.0-30.0) 02/17/17 07:50 Sodium 130 mmol/L (137-145) L 03/02/17 08:12 Potassium 4.0 mmol/L (3.5-5.1) 03/02/17 08:12 Chloride 95 mmol/L (98-107) L 03/02/17 08:12 Carbon Dioxide 31 mmol/L (22-30) H 03/02/17 08:12 Anion Gap 4 mmol/L 03/02/17 08:12 BUN 23 mg/dL (9-20) H 03/02/17 08:12 Creatinine 0.67 mg/dL (0.66-1.25) 03/02/17 08:12 Est GFR (MDRD) Af Amer >60 (>60 ml/min/1.73 sqM) 03/02/17 08:12 Est GFR (MDRD) Non-Af >60 (>60 ml/min/1.73 sqM) 03/02/17 08:12 Glucose 107 mg/dL (74-99) H 03/02/17 08:12 POC Glucose (mg/dL) 118 mg/dL (75-99) H 03/02/17 17:59 POC Glu Penology Professor ID Ivory Snyder 03/02/17 17:59 Osmolality 274 mosm/kg (280-301) L 02/18/17 07:26 Plasma Lactic Acid Jason 1.2 mmol/L (0.7-2.0) 02/17/17 07:50 Uric Acid 2.0 mg/dL (3.5-8.5) L 02/19/17 07:36 Calcium 8.0 mg/dL (8.4-10.2) L 03/02/17 08:12 Phosphorus 2.9 mg/dL (2.5-4.5) 02/17/17 07:50 Magnesium 1.6 mg/dL (1.6-2.3) 02/27/17 08:31 Total Bilirubin 0.5 mg/dL (0.2-1.3) 02/18/17 07:26 AST 29 U/L (17-59) 02/18/17 07:26 ALT 43 U/L (21-72) 02/18/17 07:26 Alkaline Phosphatase 52 U/L (38-126) 02/18/17 07:26 Total Creatine Kinase <20 U/L (55-170) L 02/17/17 07:50 CK-MB (CK-2) 0.3 ng/mL (0.0-2.4) 02/17/17 07:50 CK-MB (CK-2) Rel Index 02/17/17 07:50 Troponin I <0.012 ng/mL (0.000-0.034) 02/18/17 12:52 Total Protein 4.1 g/dL (6.3-8.2) L 02/18/17 07:26 Albumin 2.4 g/dL (3.5-5.0) L 02/18/17 07:26 TSH 5.540 mIU/L (0.465-4.680) H 02/19/17 07:36 Free T4 1.20 ng/dL (0.78-2.19) 02/19/17 07:36 Cortisol 18 ug/dL 02/19/17 07:36 Urine Color Yellow 02/17/17 07:50 Urine Appearance Clear (Clear) 02/17/17 07:50 Urine pH 8.0 (5.0-8.0) 02/17/17 07:50 Ur Specific [place] 1.010 (1.001-1.035) 02/17/17 07:50 Urine Protein Trace (Negative) H 02/17/17 07:50 Urine Glucose (UA) Negative (Negative) 02/17/17 07:50 Urine Ketones Negative (Negative) 02/17/17 07:50 Urine Blood Negative (Negative) 02/17/17 07:50 Urine Nitrite Negative (Negative) 02/17/17 07:50 Urine Bilirubin Negative (Negative) 02/17/17 07:50 Urine Urobilinogen <2.0 mg/dL (<2.0) 02/17/17 07:50 Ur Leukocyte Esterase Negative (Negative) 02/17/17 07:50 Urine Osmolality 793 mosm/kg (50-1400) 02/18/17 06:48 Ur Random Creatinine 63.8 mg/dL 02/17/17 07:50 Ur Random Sodium 141 mmol/L (30-90) H 02/18/17 06:48 Ur Random Potassium 43.7 mmol/L 02/17/17 07:50 Ur Random Urea Nitrogn 433.0 mg/dL 02/17/17 07:50 Ur Random Calcium 6.6 mg/dL 02/17/17 07:50 Stool Occult Blood Negative (Negative) 02/24/17 10:50 Vancomycin Trough 20.4 ug/mL 03/01/17 07:33 IgG 226.0 mg/dL (700.0-1600.0) L 02/20/17 07:17 IgA <25.5 mg/dL (60.0-350.0) L 02/20/17 07:17 IgM <16.9 mg/dL (40.0-280.0) L 02/20/17 07:17 Microbiology 02/25/17 22:30 Blood Blood Culture - Preliminary No Growth after 96 hours 02/25/17 22:10 Blood Blood Culture - Preliminary No Growth after 96 hours 02/21/17 12:37 Blood Blood Culture - Final No Growth after 144 hours 02/17/17 14:53 Blood Blood Culture - Final No Growth after 144 hours 02/17/17 14:36 Blood Blood Culture - Final No Growth after 144 hours 02/17/17 07:50 Blood Blood Culture - Final No Growth after 144 hours 02/17/17 22:35 Sputum Gram Stain - Final 02/17/17 22:35 Sputum Sputum Culture - Final Methicillin resist S. aureus 02/17/17 07:50 Urine,Voided Urine Culture - Final 02/17/17 12:02 Sputum Gram Stain - Final 02/17/17 12:02 Sputum Sputum Culture - Final Assessment and Plan (1) Febrile illness, acute Status: Acute (2) Left lower lobe pneumonia Narrative/Plan: 76-year-old male noted infectious disease service for his 2 recent admissions. During the summer he had significant difficulties with the onset difficulty with swallowing and fevers and varicella-zoster. At that time there was concerns that his malignancy had changed. 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 He received Rituxan therapy. Was also noted to have hypogammaglobulinemia and he received IgG therapy. If not clear when his last IgG therapy was given. We have a more recent IgG level that appears to be low at just over 400. Oncology is following and will help determine the need for immunoglobulin replacement therapy at this time. Recent cultures are reviewed and there was evidence of Enterobacter and MRSA in his sputum. Current sputum sputum revealed only MRSA Fortunately blood cultures are negative so far. His discomforts are improving. Nutrition is being given through his tube. His recent varicella-zoster is completely resolved. He is being followed by oncology and until he is well cannot receive further chemotherapy On the he did receive his dose of intravenous immunoglobulin. We'll need to follow with hematology oncology in the outpatient setting to see if he needs ongoing supplementation. He hopefully will continue to show ongoing improvement. Fevers have improved . Patient seems to be showing some improvement. Continue current antibiotic therapy. Merem was discontinued . As noted the oral cavity exam shows evidence of some herpetic lesions in the posterior pharynx. These may be giving him some of his discomforts. The possibility there may also be causing some of his fever is concerned and Valtrex was started via his PEG tube. And now has significant improvement. Would complete 5 days of therapy. Follow up blood cultures requested today the infiltrate on the chest x-ray is markedly improved. He completed his course of vancomycin therapy. Is being readied for discharge. Hopefully the infection resolves and performance status are high enough for him to proceed. Status: Acute (3) Small B-cell lymphoma Status: Acute
[2017-03-02 22:20] VITALS: PULSE 90
[2017-03-02] MEDS: LORazepam 1 MG TAB PO PRN (22:29)
[2017-03-02] MEDS: DOXYCYCLINE 50 MG CAP PEG/G-TUBE SCH (22:29)
[2017-03-03 02:01] LABS: Glucose,Whole Blood 127 mg/dL (75-99)
[2017-03-03] MEDS: LEVOTHYROXINE 125 MCG TAB PEG/G-TUBE SCH ×2 (06:14→07:48)
[2017-03-03 06:18] LABS: Glucose,Whole Blood 116 mg/dL (75-99)
[2017-03-03] MEDS: VANCOMYCIN 1,500 MG in SODIUM CHLORIDE 0.9% 250 ML IVPB SCH (07:26)
[2017-03-03] MEDS: SYMBICORT 160-4.5 MCG INHALER INHALATION SCH (07:32)
[2017-03-03 08:06] VITALS: BP 115/58; TEMP 100.1
[2017-03-03] MEDS: FUROSEMIDE 20 MG TAB PO SCH (09:08)
[2017-03-03] MEDS: valACYclovir HCL 1,000 MG TABLET PO SCH (09:08)
[2017-03-03] MEDS: NYSTATIN 100,000 UNIT/ML SUSP 500,000 UNIT/5 ML CUP PO SCH (09:08)
[2017-03-03] MEDS: DILTIAZEM ORAL 30 MG TAB PO SCH (09:09)
[2017-03-03] MEDS: DOXYCYCLINE 50 MG CAP PEG/G-TUBE SCH (09:09)
[2017-03-03 09:50] LABS: INR 2.7 (<1.2); Prothrombin Time 25.8 sec (9.0-12.0)
[2017-03-03 10:02] LABS: Anisocytosis Slight; Aty Lym Flag Marked; CH 26.9; CHCM 29.4; HDW 3.16; HGB 8.3 gm/dL (13.0-17.5); Hypochromasia Marked; MCH 27.1 pg (25.0-35.0); MCHC 29.6 g/dL (31.0-37.0); MCV 91.5 fL (80.0-100.0); Mean Platelet Volume 8.3; RBC 3.06 m/uL (4.30-5.90); RDW 19.1 % (11.5-15.5); WBC (Perox) 8.18
[2017-03-03 10:04] VITALS: BMI 29.7
[2017-03-03 10:27] LABS: Anion Gap 5 mmol/L; Blood Urea Nitrogen 22 mg/dL (9-20); Calcium 7.9 mg/dL (8.4-10.2); Carbon Dioxide 31 mmol/L (22-30); Chloride 95 mmol/L (98-107); Glucose 103 mg/dL (74-99); Non-African American GFR(MDRD) >60 (>60 ml/min/1.73 sqM); Potassium 4.2 mmol/L (3.5-5.1); Sodium 131 mmol/L (137-145)
[2017-03-03 10:33] LABS: Add Differential Manual Differential
[2017-03-03 10:34] VITALS: RESP 17
[2017-03-03 10:42] LABS: Manual Review Performed; Nucleated Red Blood Cells 0 /100 WBC (0-0); Total Cells Counted 100
--- NOTE | 2017-03-03 11:15 | P.PN ---
Subjective Principal diagnosis: Left lower lobe pneumonia. Sputum culture positive for MRSA. 76-year-old male patient is very well-known to me. Unfortunately patient had a prolonged and complicated course of CLL. Note that the patient was in a good state of health until approximately 3 months ago when he started having infectious complications. 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 As such the patient has a PEG tube for enteral feeding and nutritional support and his periodically being evaluated by the swallow pathologist for his ability to eat orally. Currently is on enteral feeding via a PEG tube. Is also known to have COPD, hypothyroidism, atrial fibrillation as comorbid conditions This patient was recently in the hospital. He was treated and he was discharged to go home where he was being taken care of by his . The patient came into the hospital because of syncopal episodes probably related to dehydration and orthostasis. At the same time he was hyponatremic and the possibility of left lower lobe pneumonia was also entertained 9 that there was a new consolidation of the left lung base. His sputum showed MRSA and make and the patient was started on vancomycin. He is also meropenem. He is currently receiving antibiotics without any major complications or side effects. He still has a congested cough unable to bring up much of sputum. He does have a decent coughing reflex. No respiratory distress. No hemoptysis no pleurisy. No chest pain. No altered mentation. On and off is still having fever the most recent of which was yesterday for which the patient was given IV Tylenol.. He is being followed up by infectious disease. He is also on long-term anticoagulation with warfarin regarding his atrial fibrillation. INR is subtherapeutic at this point. On 02/24/2017 the patient seen in follow-up for left lower lobe pneumonia, sputum positive for MRSA, Fletcher's palsy, difficulty swallowing, episodic fever secondary to CLL, and hyponatremia. Patient's spouse as it is at the bedside. Patient has been participating with the physical therapy, ambulating in hallway. Patient and the spouse both verbalize improvement in overall clinical status. Patient denies any specific restrictive complaints, maintains oxygen saturations in the 93-94% range on 4 L per nasal cannula. Speech therapist is on consult and will reevaluate the swallowing ability today. Patient will call will continue with tube feedings via the PEG tube, states she tolerates it well. Continues with intermittent febrile episodes, treated with acetaminophen. Lung sounds-a few scattered rales at the bases of the lungs. Nephrology increased Lasix to twice a day yesterday, improvement in the bilateral lower extremity edema has been noted. Today's serum sodium is 131 and it is improved from 128 on 02/23/2017. On 02/25/2017 I see this patient quite awake and alert and he is interactive. He is not having any major stroke difficulties. He is coughing up mucus. He has MRSA in the sputum and MRSA pneumonia suspected and patient is currently on IV vancomycin. A total duration of antibiotics is not determined although I suspect the patient will need somewhere between 10-14 days. No fever. No chills. PEG tube site is clean. The patient is still receiving enteral feeding for nutritional support. The patient is using the appropriate hearing aids and he is able to communicate better. No significant weakness at this point as the patient is doing daily walking. No fever. No chills. The patient is on long-term anticoagulation regarding his atrial fibrillation and INR from today subtherapeutic and further adjustments will be done accordingly. 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 On the patient is doing well and has no specific complaints. He continues to improve. No fever. No chills. Receiving enteral feeding for nutritional support. No reported aspiration. He feels stronger. ID is on the case and in the process of discharging this patient. On 02/27/2017 the patient is being seen in follow-up. No specific complaints. The patient is afebrile. The patient on IV vancomycin. Sodium level is at 130. INR is at 1.7. Tolerating enteral feeding for nutritional support. Resting comfortably in bed. On 02/28/2017 the patient remains essentially the same. The patient is essentially the hospital to comlete his vancomycin course. His resting comfortably in bed. Sodium level is up to 131. Hemoglobin is at 8.3. No fever or chills. INR is up to 1.8. Hemodynamically stable. 03/02/2017 the patient continues with no respiratory complaints. No episodes of fever. Denies chest congestion, dyspnea, or cough. Maintain on 4 L oxygen per nasal cannula, no chills, no headaches. Patient has completed a course of vancomycin and Valtrex antibiotics. Discharge planning arranging tube feedings at home. Speech therapy is following with the patient, no plans to repeat barium swallow until after the next round of chemo. Patient continues with ambulation in the hallway a few times a day. 03/03/2017 patient continues to improve. No episodes of fever, no respiratory complaints. Lung sounds are clear, no rales, no rhonchi, no wheezes. Denies chest congestion, dyspnea or cough. On 4 L oxygen, mentating sats around 97%. Has completed a course of vancomycin, continues on oral Valtrex for a couple more days. Oral doxycycline was started per infectious diseases service. Awaiting approval from the insurance company for the home tube feedings. Patient is anxious about restarting chemotherapy. Stable from pulmonary standpoint. Objective - Vital Signs Vital signs: Vital Signs Temp 100.1 F H 03/03/17 07:00 Pulse 90 03/03/17 07:30 Resp 17 03/03/17 09:00 BP 115/58 03/03/17 07:00 Pulse Ox 97 03/03/17 07:00 Intake & Output 03/02/17 03/03/17 03/03/17 18:59 06:59 18:59 Intake Total 260 900 230 Output Total 400 150 Balance 260 500 80 Weight 94 kg 94 kg Intake: IV 250 Vancomycin 1,500 mg In 250 Sodium Chloride 0.9% 250 ml @ 125 mls/hr IVPB Q12H [facility] Rx#:[id number] Tube Feeding 260 650 230 Output: Urine 400 150 Other: Voiding Method Urinal Urinal Urinal # Voids 1 # Bowel Movements 1 - Exam Head exam was generally normal. There was no scleral icterus or corneal arcus. Mucous membranes were moist. The patient has an obvious facial asymmetry with a left facial droop related to his Fletcher's palsy. Neck was supple and without jugular venous distension, thyromegaly, or carotid bruits. Carotids were easily palpable bilaterally. There was no adenopathy. Lung sounds are diminished in lung bases bilaterally. No wheezes. No crackles , no rhonchi Cardiac exam revealed the PMI to be normally situated and sized. The rhythm was regular and no extrasystoles were noted during several minutes of auscultation. The first and second heart sounds were normal and physiologic splitting of the second heart sound was noted. There were no murmurs, rubs, clicks, or gallops. Abdominal exam revealed normal bowel sounds. The abdomen was soft, non-tender, and without masses, organomegaly, or appreciable enlargement of the abdominal aorta. The PEG tube site is dry clean and intact. No direct tenderness no rebound tenderness. No guarding. Bowel sounds are hypoactive at the present. Examination of the extremities revealed easily palpable radial, femoral and pedal pulses. There was no cyanosis, clubbing. 1+ lower leg edema. Neurologically the patient has impaired hearing and the patient has an obvious facial palsy involving the left face. Motor function the left upper and left lower oximetry is within normal limits. In fact motor function is symmetric in all 4 extremities. Coughing reflexes present. Swallow reflex is poor. Skeletal exam is within normal limits without any deformities or fractures. Skin exam is within normal without any active rash or skin eruption. Psychiatric exam: Mental status is intact, affect is appropriate. - Labs CBC & Chem 7: 03/03/17 08:37 03/03/17 08:37 Labs: Abnormal Lab Results - Last 24 Hours (Table) 03/02/17 03/02/17 03/03/17 Range/Units 12:06 17:59 01:57 RBC (4.30-5.90) m/uL Hgb (13.0-17.5) gm/dL Hct (39.0-53.0) % MCHC (31.0-37.0) g/dL RDW (11.5-15.5) % Lymphocytes # (Manual) (1.0-4.8) k/uL PT (9.0-12.0) sec INR (<1.2) Sodium (137-145) mmol/L Chloride (98-107) mmol/L Carbon Dioxide (22-30) mmol/L BUN (9-20) mg/dL Glucose (74-99) mg/dL POC Glucose (mg/dL) 115 H 118 H 127 H (75-99) mg/dL Calcium (8.4-10.2) mg/dL 03/03/17 03/03/17 03/03/17 Range/Units 06:05 08:37 08:37 RBC 3.06 L (4.30-5.90) m/uL Hgb 8.3 L (13.0-17.5) gm/dL Hct 28.0 L (39.0-53.0) % MCHC 29.6 L (31.0-37.0) g/dL RDW 19.1 H (11.5-15.5) % Lymphocytes # (Manual) 5.60 H (1.0-4.8) k/uL PT 25.8 H (9.0-12.0) sec INR 2.7 H (<1.2) Sodium (137-145) mmol/L Chloride (98-107) mmol/L Carbon Dioxide (22-30) mmol/L BUN (9-20) mg/dL Glucose (74-99) mg/dL POC Glucose (mg/dL) 116 H (75-99) mg/dL Calcium (8.4-10.2) mg/dL 03/03/17 Range/Units 08:37 RBC (4.30-5.90) m/uL Hgb (13.0-17.5) gm/dL Hct (39.0-53.0) % MCHC (31.0-37.0) g/dL RDW (11.5-15.5) % Lymphocytes # (Manual) (1.0-4.8) k/uL PT (9.0-12.0) sec INR (<1.2) Sodium 131 L (137-145) mmol/L Chloride 95 L (98-107) mmol/L Carbon Dioxide 31 H (22-30) mmol/L BUN 22 H (9-20) mg/dL Glucose 103 H (74-99) mg/dL POC Glucose (mg/dL) (75-99) mg/dL Calcium 7.9 L (8.4-10.2) mg/dL Microbiology - Last 24 Hours (Table) 02/25/17 22:30 Blood Culture - Preliminary Blood No Growth after 120 hours 02/25/17 22:10 Blood Culture - Preliminary Blood No Growth after 120 hours Assessment and Plan Plan: Assessment 1 suspected left lower lobe pneumonia. The patient has a sputum that's positive for MRSA. Improved significantly with antibiotic treatment, patient has completed the course of vancomycin. Started on doxycycline per infectious disease service. 2 episodic fever. Rule out infectious. 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 5 COPD 6 [place] palsy 7 Chickenpox skin eruption that recovered, completed the course of valacyclovir. 8 chronic atrial fibrillation on Coumadin with a therapeutic PT/INR 9 hypothyroidism 10 difficulty with swallowing with CLL involving his throat and upper airways and the patient is currently receiving enteral feeding through PEG tube for nutritional support 11 impaired hearing 12 chronic normocytic anemia 13 hyponatremia, nephrology is on the case, improved. Serum sodium is up to 131 today Plan Aspiration precautions. Speech therapy is following. Continue enteral feeding for nutritional support. Oncology is on the case regarding further advice for his CLL. Awaiting approval from the insurance company regarding the tube feedings at home. Stable from respiratory point. I performed a history & physical examination of the patient and discussed their management with my nurse practitioner, Kaley Pineda. I reviewed the nurse practitioner's note and agree with the documented findings and plan of care.
--- NOTE | 2017-03-03 20:39 | P.PN ---
Subjective Principal diagnosis: sepsis 76-year-old male with a known history of chronic lymphocytic leukemia with not been any therapy up to this December. However that point in time he presented to Hospital feeling poorly. Had severe sore throat difficulty with chewing and swallowing. He was not feeling well. He was hospitalized at that time and treated with antibiotic therapy with concerns to pneumonia and high- grade fever. He also developed an extensive skin rash. Testing at our facility did confirm varicella-zoster which he had treatment for from beginning of his stay in December. Because of his ongoing difficulties with swallowing he was transferred to his oncologist at [facility]. 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 And he was initiated to Rituxan therapy. 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 At this time the patient is still somewhat miserable. He is unaware of the events that occurred that led him to the hospital. He apparently was unconscious when the found him and she was concerned that there was seizure. He constantly was brought to Hospital by EMS. At this time he is sitting up right somewhat comfortable. He is oriented and able to converse although he is quite hard of hearing He was having significant pains earlier and is now more comfortable. His significant abdominal discomforts have improved. He does cough and has had fever does not relate to significant sputum production or hemoptysis. temperature of 100.1 and overall is improved but stll weak. is very anxious to continue chemotherapy. The patient and that with the oncologist this morning. Once the patient is cleared from infection he will then be able to proceed with his next course of chemotherapy. The leg is extremely anxious that his day is coming up in a couple of days. She would like him to stay on track. The oncologist discussed that he needs to be free of infection before his next course of chemotherapy. 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 Remains without fever, and overall feels better Objective - Vital Signs Vital signs: Vital Signs Temp 100.1 F H 03/03/17 07:00 Pulse 90 03/03/17 07:30 Resp 17 03/03/17 09:00 BP 115/58 03/03/17 07:00 Pulse Ox 97 03/03/17 07:00 Intake & Output 03/03/17 03/03/17 03/04/17 06:59 18:59 06:59 Intake Total 900 230 Output Total 400 150 Balance 500 80 Weight 94 kg 94 kg Intake: IV 250 Vancomycin 1,500 mg In 250 Sodium Chloride 0.9% 250 ml @ 125 mls/hr IVPB Q12H [facility] Rx#:[id number] Tube Feeding 650 230 Output: Urine 400 150 Other: Voiding Method Urinal Urinal # Voids 1 # Bowel Movements 1 - Exam 76-year-old male who appears older than his stated age. He is weak and ill in appearance relates he has less pain when he tries to swallow was seen by speech pathology and is improving his swallow mechanisms by training with ice cubes. HEENT: Anicteric conjunctiva are pink and moist nasal mucosa grossly intact without significant lesions, there is no thrush. Is noted he had extensive thrush that is now resolved just has some dry oral cavity, evidence of new HSV lesions left posterior pharynx, improving further Neck: The neck is supple without significant lymphadenopathy or thyromegaly. Lungs: Good bilateral air entry there is evidence of a few crackly only at the left base otherwise the chest is quite clear Heart: Regular rate and rhythm with an audible S1-S2, no S3 no S4. There is no significant murmur click or rub, PMI was nondisplaced. Abdomen: Positive bowel sounds soft and nontender without palpable masses or organomegaly. There was no guarding or rebound. PEG tube site is intact Extremities: The upper extremities have excellent pulses they are symmetric, no significant petechiae or telangiectasia. No splinter hemorrhages were noted. The lower extremities are free from significant edema. The peripheral pulses were 2+ and symmetric. Neuro: Awake alert oriented to person and place. Does not exhibit acute gross focal sensory motor deficits at this time - Labs CBC & Chem 7: 03/03/17 08:37 03/03/17 08:37 Labs: Abnormal Lab Results - Last 24 Hours (Table) 03/03/17 03/03/17 03/03/17 Range/Units 01:57 06:05 08:37 RBC (4.30-5.90) m/uL Hgb (13.0-17.5) gm/dL Hct (39.0-53.0) % MCHC (31.0-37.0) g/dL RDW (11.5-15.5) % Lymphocytes # (Manual) (1.0-4.8) k/uL PT 25.8 H (9.0-12.0) sec INR 2.7 H (<1.2) Sodium (137-145) mmol/L Chloride (98-107) mmol/L Carbon Dioxide (22-30) mmol/L BUN (9-20) mg/dL Glucose (74-99) mg/dL POC Glucose (mg/dL) 127 H 116 H (75-99) mg/dL Calcium (8.4-10.2) mg/dL 03/03/17 03/03/17 Range/Units 08:37 08:37 RBC 3.06 L (4.30-5.90) m/uL Hgb 8.3 L (13.0-17.5) gm/dL Hct 28.0 L (39.0-53.0) % MCHC 29.6 L (31.0-37.0) g/dL RDW 19.1 H (11.5-15.5) % Lymphocytes # (Manual) 5.60 H (1.0-4.8) k/uL PT (9.0-12.0) sec INR (<1.2) Sodium 131 L (137-145) mmol/L Chloride 95 L (98-107) mmol/L Carbon Dioxide 31 H (22-30) mmol/L BUN 22 H (9-20) mg/dL Glucose 103 H (74-99) mg/dL POC Glucose (mg/dL) (75-99) mg/dL Calcium 7.9 L (8.4-10.2) mg/dL Microbiology - Last 24 Hours (Table) 02/25/17 22:30 Blood Culture - Preliminary Blood No Growth after 120 hours 02/25/17 22:10 Blood Culture - Preliminary Blood No Growth after 120 hours Laboratory Results WBC 8.0 k/uL (3.8-10.6) 03/03/17 08:37 RBC 3.06 m/uL (4.30-5.90) L 03/03/17 08:37 Hgb 8.3 gm/dL (13.0-17.5) L 03/03/17 08:37 Hct 28.0 % (39.0-53.0) L 03/03/17 08:37 MCV 91.5 fL (80.0-100.0) 03/03/17 08:37 MCH 27.1 pg (25.0-35.0) 03/03/17 08:37 MCHC 29.6 g/dL (31.0-37.0) L 03/03/17 08:37 RDW 19.1 % (11.5-15.5) H 03/03/17 08:37 Plt Count 205 k/uL (150-450) 03/03/17 08:37 Neutrophils % (Manual) 20 % 03/03/17 08:37 Band Neutrophils % 1 % 02/28/17 13:20 Lymphocytes % (Manual) 70 % 03/03/17 08:37 Monocytes % (Manual) 9 % 03/03/17 08:37 Eosinophils % (Manual) 1 % 03/03/17 08:37 Neutrophils # (Manual) 1.60 k/uL (1.3-7.7) 03/03/17 08:37 Lymphocytes # (Manual) 5.60 k/uL (1.0-4.8) H 03/03/17 08:37 Monocytes # (Manual) 0.72 k/uL (0-1.0) 03/03/17 08:37 Eosinophils # (Manual) 0.08 k/uL (0-0.7) 03/03/17 08:37 Nucleated RBCs 0 /100 WBC (0-0) 03/03/17 08:37 Manual Slide Review Performed 03/03/17 08:37 Polychromasia Present 03/01/17 07:33 Hypochromasia Marked 03/03/17 08:37 Poikilocytosis (manual Present 03/03/17 08:37 Anisocytosis Slight 03/03/17 08:37 Macrocytosis Slight 02/19/17 07:36 Ovalocytes Present 02/24/17 07:45 PT 25.8 sec (9.0-12.0) H 03/03/17 08:37 INR 2.7 (<1.2) H 03/03/17 08:37 APTT 27.6 sec (22.0-30.0) 02/17/17 07:50 Sodium 131 mmol/L (137-145) L 03/03/17 08:37 Potassium 4.2 mmol/L (3.5-5.1) 03/03/17 08:37 Chloride 95 mmol/L (98-107) L 03/03/17 08:37 Carbon Dioxide 31 mmol/L (22-30) H 03/03/17 08:37 Anion Gap 5 mmol/L 03/03/17 08:37 BUN 22 mg/dL (9-20) H 03/03/17 08:37 Creatinine 0.66 mg/dL (0.66-1.25) 03/03/17 08:37 Est GFR (MDRD) Af Amer >60 (>60 ml/min/1.73 sqM) 03/03/17 08:37 Est GFR (MDRD) Non-Af >60 (>60 ml/min/1.73 sqM) 03/03/17 08:37 Glucose 103 mg/dL (74-99) H 03/03/17 08:37 POC Glucose (mg/dL) 116 mg/dL (75-99) H 03/03/17 06:05 POC Glu Driver Medic ID Tressa Teran 03/03/17 06:05 Osmolality 274 mosm/kg (280-301) L 02/18/17 07:26 Plasma Lactic Acid Jason 1.2 mmol/L (0.7-2.0) 02/17/17 07:50 Uric Acid 2.0 mg/dL (3.5-8.5) L 02/19/17 07:36 Calcium 7.9 mg/dL (8.4-10.2) L 03/03/17 08:37 Phosphorus 2.9 mg/dL (2.5-4.5) 02/17/17 07:50 Magnesium 1.6 mg/dL (1.6-2.3) 02/27/17 08:31 Total Bilirubin 0.5 mg/dL (0.2-1.3) 02/18/17 07:26 AST 29 U/L (17-59) 02/18/17 07:26 ALT 43 U/L (21-72) 02/18/17 07:26 Alkaline Phosphatase 52 U/L (38-126) 02/18/17 07:26 Total Creatine Kinase <20 U/L (55-170) L 02/17/17 07:50 CK-MB (CK-2) 0.3 ng/mL (0.0-2.4) 02/17/17 07:50 CK-MB (CK-2) Rel Index 02/17/17 07:50 Troponin I <0.012 ng/mL (0.000-0.034) 02/18/17 12:52 Total Protein 4.1 g/dL (6.3-8.2) L 02/18/17 07:26 Albumin 2.4 g/dL (3.5-5.0) L 02/18/17 07:26 TSH 5.540 mIU/L (0.465-4.680) H 02/19/17 07:36 Free T4 1.20 ng/dL (0.78-2.19) 02/19/17 07:36 Cortisol 18 ug/dL 02/19/17 07:36 Urine Color Yellow 02/17/17 07:50 Urine Appearance Clear (Clear) 02/17/17 07:50 Urine pH 8.0 (5.0-8.0) 02/17/17 07:50 Ur Specific [place] 1.010 (1.001-1.035) 02/17/17 07:50 Urine Protein Trace (Negative) H 02/17/17 07:50 Urine Glucose (UA) Negative (Negative) 02/17/17 07:50 Urine Ketones Negative (Negative) 02/17/17 07:50 Urine Blood Negative (Negative) 02/17/17 07:50 Urine Nitrite Negative (Negative) 02/17/17 07:50 Urine Bilirubin Negative (Negative) 02/17/17 07:50 Urine Urobilinogen <2.0 mg/dL (<2.0) 02/17/17 07:50 Ur Leukocyte Esterase Negative (Negative) 02/17/17 07:50 Urine Osmolality 793 mosm/kg (50-1400) 02/18/17 06:48 Ur Random Creatinine 63.8 mg/dL 02/17/17 07:50 Ur Random Sodium 141 mmol/L (30-90) H 02/18/17 06:48 Ur Random Potassium 43.7 mmol/L 02/17/17 07:50 Ur Random Urea Nitrogn 433.0 mg/dL 02/17/17 07:50 Ur Random Calcium 6.6 mg/dL 02/17/17 07:50 Stool Occult Blood Negative (Negative) 02/24/17 10:50 Vancomycin Trough 20.4 ug/mL 03/01/17 07:33 IgG 226.0 mg/dL (700.0-1600.0) L 02/20/17 07:17 IgA <25.5 mg/dL (60.0-350.0) L 02/20/17 07:17 IgM <16.9 mg/dL (40.0-280.0) L 02/20/17 07:17 Microbiology 02/25/17 22:30 Blood Blood Culture - Preliminary No Growth after 120 hours 02/25/17 22:10 Blood Blood Culture - Preliminary No Growth after 120 hours 02/21/17 12:37 Blood Blood Culture - Final No Growth after 144 hours 02/17/17 14:53 Blood Blood Culture - Final No Growth after 144 hours 02/17/17 14:36 Blood Blood Culture - Final No Growth after 144 hours 02/17/17 07:50 Blood Blood Culture - Final No Growth after 144 hours 02/17/17 22:35 Sputum Gram Stain - Final 02/17/17 22:35 Sputum Sputum Culture - Final Methicillin resist S. aureus 02/17/17 07:50 Urine,Voided Urine Culture - Final 02/17/17 12:02 Sputum Gram Stain - Final 02/17/17 12:02 Sputum Sputum Culture - Final Assessment and Plan (1) Febrile illness, acute Status: Acute (2) Left lower lobe pneumonia Narrative/Plan: 76-year-old male noted infectious disease service for his 2 recent admissions. During the summer he had significant difficulties with the onset difficulty with swallowing and fevers and varicella-zoster. At that time there was concerns that his malignancy had changed. 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 He received Rituxan therapy. Was also noted to have hypogammaglobulinemia and he received IgG therapy. If not clear when his last IgG therapy was given. We have a more recent IgG level that appears to be low at just over 400. Oncology is following and will help determine the need for immunoglobulin replacement therapy at this time. Recent cultures are reviewed and there was evidence of Enterobacter and MRSA in his sputum. Current sputum sputum revealed only MRSA Fortunately blood cultures are negative so far. His discomforts are improving. Nutrition is being given through his tube. His recent varicella-zoster is completely resolved. He is being followed by oncology and until he is well cannot receive further chemotherapy On the he did receive his dose of intravenous immunoglobulin. We'll need to follow with hematology oncology in the outpatient setting to see if he needs ongoing supplementation. He hopefully will continue to show ongoing improvement. Fevers have improved . Patient seems to be showing some improvement. Continue current antibiotic therapy. Merem was discontinued . As noted the oral cavity exam shows evidence of some herpetic lesions in the posterior pharynx. These may be giving him some of his discomforts. The possibility there may also be causing some of his fever is concerned and Valtrex was started via his PEG tube. And now has significant improvement. Follow up blood cultures requested today the infiltrate on the chest x-ray is markedly improved. He completed his course of vancomycin therapy. Which was for his MRSA pneumonia. We'll transition to a 7 day course of doxycycline 100 mg orally twice per day via his PEG tube. Current goal is to get him back in his chemotherapy for his CLL. Oncology will follow as to the next time he needs a GG supplementation. Status: Acute (3) Small B-cell lymphoma Status: Acute
== END 2017-03-03 11:28 | disposition home health service (06) | DRG 871 ==
LOC: EC 07:41 → 5MS5E 11:31
PROVIDERS: ADMIT Family Medicine; ATTEND Family Medicine
PROC: 3E0G76Z Introduction of Nutritional Substance into Upper GI, Via Natural or Artificial Opening (ICD-10-PCS; principal; 2017-02-18)
DX: A41.02 Sepsis due to Methicillin resistant Staphylococcus aureus (principal); J15.212 Pneumonia due to Methicillin resistant Staphylococcus aureus; G93.41 Metabolic encephalopathy; N17.9 Acute kidney failure, unspecified; E22.2 Syndrome of inappropriate secretion of antidiuretic hormone; C91.10 Chronic lymphocytic leukemia of B-cell type not having achieved remission; D80.1 Nonfamilial hypogammaglobulinemia; B37.0 Candidal stomatitis; E44.0 Moderate protein-calorie malnutrition; J44.0 Chronic obstructive pulmonary disease with (acute) lower respiratory infection; B00.2 Herpesviral gingivostomatitis and pharyngotonsillitis; K94.23 Gastrostomy malfunction; I95.9 Hypotension, unspecified; I11.9 Hypertensive heart disease without heart failure; I48.0 Paroxysmal atrial fibrillation; J32.9 Chronic sinusitis, unspecified; I48.2 Chronic atrial fibrillation; E86.0 Dehydration; E87.6 Hypokalemia; E86.1 Hypovolemia; T50.1X5A Adverse effect of loop [high-ceiling] diuretics, initial encounter; R50.81 Fever presenting with conditions classified elsewhere; E89.0 Postprocedural hypothyroidism; G51.0 Bell's palsy; J84.10 Pulmonary fibrosis, unspecified; I34.0 Nonrheumatic mitral (valve) insufficiency; B02.9 Zoster without complications; R60.0 Localized edema; R13.19 Other dysphagia; D64.9 Anemia, unspecified; R35.0 Frequency of micturition; H91.90 Unspecified hearing loss, unspecified ear; R26.9 Unspecified abnormalities of gait and mobility; N42.9 Disorder of prostate, unspecified; R11.2 Nausea with vomiting, unspecified; R53.1 Weakness; R47.02 Dysphasia; M19.90 Unspecified osteoarthritis, unspecified site; Z88.1 Allergy status to other antibiotic agents; Z88.0 Allergy status to penicillin; Z87.891 Personal history of nicotine dependence; Z68.29 Body mass index [BMI] 29.0-29.9, adult; Z79.51 Long term (current) use of inhaled steroids; Z88.8 Allergy status to other drugs, medicaments and biological substances; Z92.21 Personal history of antineoplastic chemotherapy; Z86.19 Personal history of other infectious and parasitic diseases; Z86.14 Personal history of Methicillin resistant Staphylococcus aureus infection; Z87.01 Personal history of pneumonia (recurrent); Z86.010 Personal history of colon polyps; Z86.69 Personal history of other diseases of the nervous system and sense organs; Z86.79 Personal history of other diseases of the circulatory system; Z92.25 Personal history of immunosuppression therapy; Z71.3 Dietary counseling and surveillance; W19.XXXA Unspecified fall, initial encounter
CPT/HCPCS: 36415; 70450; 71020; 80048; 80053; 80202; 81003; 82272; 82310; 82533; 82550; 82553; 82570; 82784; 83605; 83735; 83930; 83935; 84100; 84133; 84295; 84300; 84439; 84443; 84484; 84540; 84550; 85025; 85027; 85610; 85730; 87040; 87070; 87077; 87086; 87186; 87205; 93005; 93970; 94640; 94760; 96361; 96365; 96375; 99285

== ENCOUNTER 2017-05-02 10:46 | Emergency (ER) | payer MEDICARE ==
--- NOTE | 2017-05-02 11:19 | ED ---
General Adult HPI - General Chief complaint: Recheck/Abnormal Lab/Rx Stated complaint: peg tube problem Time Seen by Provider: 05/02/17 10:58 Source: patient, family, RN notes reviewed Mode of arrival: wheelchair Limitations: physical limitation - History of Present Illness Initial comments: This is a 76-year-old male who is brought in because the status: Without from his PEG tube it is now freely mobile. It is not totally out however. Patient' s is not sure if the position is recommended at about approximately 3-4 inches from where it had been. No other reports of any problems he was sutured in place several months ago it was placed. He has had no fevers chills nausea vomiting sweats just no intake today because of the nonuse of the PEG tube. - Related Data Home Medications Medication Instructions Recorded Confirmed Multivitamins, Thera [Multivitamin 1 tab PEG/G-TUBE DAILY 12/21/16 05/02/17 (formulary)] Levothyroxine Sodium [Synthroid] 125 mcg PEG/G-TUBE DAILY 02/17/17 05/02/17 Warfarin Sodium [Coumadin] 3 mg PEG/G-TUBE DAILY 03/09/17 05/02/17 Imbruvica 420 mg PEG/G-TUBE DAILY 04/06/17 05/02/17 Metoprolol Tartrate [Lopressor] 25 mg PEG/G-TUBE BID 05/02/17 05/02/17 Midodrine HCl [ProAmatine] 2.5 mg PEG/G-TUBE DAILY 05/02/17 05/02/17 Allergies Allergy/AdvReac Type Severity Reaction Status Date / Time amoxicillin Allergy Rash/Hives Verified 05/02/17 12:25 clavulanic acid Allergy Rash/Hives Verified 05/02/17 12:25 [From Augmentin] rituximab [From Rituxan] Allergy Anaphylaxis Verified 05/02/17 12:25 Review of Systems ROS Statement: Those systems with pertinent positive or pertinent negative responses have been documented in the HPI. ROS Other: All systems not noted in ROS Statement are negative. Past Medical History Past Medical History: Atrial Fibrillation, Cancer, COPD, Neurologic Disorder, Osteoarthritis (OA), Pneumonia, Prostate Disorder, Thyroid Disorder Additional Past Medical History / Comment(s): Pt recently admitted to [facility] on 05/24 with L lower lobe pneumonia, small B cell lymphoma. Other Hx: Atrial flutter with RVR, Chronic lymphocytic leukemia-has lesions on base of tongue, vocal cords and lymph nodes in L side neck, has had 2 doses chemo therapy at [facility] and is due for more chemo ThursdayMarch 10, hypogammaglobulinemia-has received IV IGg, anemia, dysphagia-NPO with peg tube-can have rare piece of ice , chronic bronchitis, pneumonia with sepsis, paroxysmal atrial fibrillation, hypothyroidism-surgery d/t nodules, viral skin rash- chickenpox rash, Fletcher's palsy L face, bilateral tinnitis. History of Any Multi-Drug Resistant Organisms: MRSA Date of last positivie culture/infection: 02/17/17 MDRO Source:: Sputum Past Surgical History: Tonsillectomy Additional Past Surgical History / Comment(s): Peg tube insertion, colonoscopies /polypectomies, rectal fissure repair, bilateral knee arthroscopies, THYROID SURGERY-1/2 removed. Past Anesthesia/Blood Transfusion Reactions: Blood Transfusion Reaction Additional Past Anesthesia/Blood Transfusion Reaction / Comment(s): GAVE BENADRYL AND RAN SLOW. Has had multiple transfusuions and has a reaction every time Past Psychological History: No Psychological Hx Reported Smoking Status: Former smoker - Past Family History Father Family Medical History: Dementia Mother Family Medical History: No Reported History General Exam - General Exam Comments Initial Comments: Pezzer well-developed well-nourished awake alert male Limitations: physical limitation General appearance: alert, in no apparent distress Head exam: Present: atraumatic, normocephalic, normal inspection Eye exam: Present: normal appearance, PERRL, EOMI. Absent: scleral icterus, conjunctival injection, periorbital swelling ENT exam: Present: normal exam, mucous membranes moist Neck exam: Present: normal inspection Respiratory exam: Present: normal lung sounds bilaterally Cardiovascular Exam: Present: bradycardia GI/Abdominal exam: Present: soft, other (PEG tube site is well granulated. The tube does appear to be in place with repositioning there is good evidence of proper positioning with injection of air and auscultation over the stomach.) Rectal exam: Present: deferred Extremities exam: Present: normal inspection, full ROM, normal capillary refill. Absent: tenderness, pedal edema, joint swelling, calf tenderness Neurological exam: Present: alert, oriented X3, CN II-XII intact Psychiatric exam: Present: normal affect, normal mood Skin exam: Present: warm, dry, intact, normal color. Absent: rash Course Vital Signs 05/02/17 10:49 Temperature 97 F L Pulse Rate 56 L Respiratory 17 Rate Blood Pressure 169/114 O2 Sat by Pulse 98 Oximetry Procedures - Procedures Initial comment: Patient did have a functioning PEG tube that was not secured in place. After testing the PEG tube with auscultation and air injection to ensure there was in the proper position I was able to prep the localized skin area with a ChloraPrep. He was able to secure the PEG tube with O- Prolene will suture. The patient did tolerate this well I did anesthetize the skin prior to the stitched with one percent Xylocaine plain. Patient did tolerate this well. Medical Decision Making - Medical Decision Making The PEG tube was secured. Patient be discharged with PEG tube instructions. Disposition Clinical Impression: PEG tube malfunction Disposition: HOME SELF-CARE Condition: Good Instructions: How to Use and Care for Your PEG Tube (ED) Referrals: Brian Barrientos MD [Primary Care Provider] - 1-2 days
[2017-05-02 12:51] VITALS: BP 109/57; PULSE 82; RESP 14; TEMP 97.6
== END 2017-05-02 12:45 | disposition home or self-care (01) ==
LOC: EC 10:46
DX: K94.23 Gastrostomy malfunction (principal); I48.0 Paroxysmal atrial fibrillation; E03.9 Hypothyroidism, unspecified; I48.92 Unspecified atrial flutter; Z86.14 Personal history of Methicillin resistant Staphylococcus aureus infection; Z85.72 Personal history of non-Hodgkin lymphomas; Z87.891 Personal history of nicotine dependence; Z79.01 Long term (current) use of anticoagulants; Z79.899 Other long term (current) drug therapy; Z88.0 Allergy status to penicillin; Z88.8 Allergy status to other drugs, medicaments and biological substances
CPT/HCPCS: 99283

== ENCOUNTER → 2017-05-06 | Outpatient (CLI) | payer MEDICARE ==
--- NOTE | 2017-05-06 14:50 | FL ---
Modified barium swallow. HISTORY: Dysphagia. Modified barium swallow was performed with the department of speech pathology. The patient was prese nted with various consistencies of barium. Nonfunctioning swallow is confirmed. There appear to be aspiration with the thin liquid mixture. Exam ination was terminated at that point. Full report is to follow from the department of speech patholog y. Impression: Nonfunctioning swallow.
== END | disposition home or self-care (01) ==
LOC: RADFLMAIN 12:40
PROVIDERS: ATTEND Internal Medicine Hematology & Oncology
DX: R13.10 Dysphagia, unspecified (principal)
CPT/HCPCS: 74230

== ENCOUNTER 2023-08-30 14:14 | Inpatient (IN) | payer MEDICARE ==
--- NOTE | 2023-08-30 14:55 | ED ---
General Adult HPI - General Source: patient, RN notes reviewed Mode of arrival: ambulatory Limitations: no limitations <Saranya Yun - Last Filed: 08/30/23 14:53> <Dariusz Kim - Last Filed: 08/30/23 20:40> - General Stated complaint: feeding tube fell out fever Time Seen by Provider: 08/30/23 14:53 - History of Present Illness Initial comments: 82-year-old male with history of leukemia presents to the emergency department for evaluation of G-tube falling out. He does not have any oral intake. Patient's also states that he has been running fevers recently. He also notes being more short of breath than usual. (Saranya Yun) I did review the above information patient is presenting my examination due to shortness of breath nonproductive cough feeling weak. He has had fever over the last 2 days with shortness of breath initially cough no phlegm but did have some yellow phlegm in the emergency department. He does have a history of atrial flutter/fibrillation he is on flecainide he also has thyroid disease history of B-cell lymphoma/CLL. He has a indwelling PEG that has had for about 18 months which was pulled out prior to coming to the hospital today within 2 hours of presentation. No other current complaints or modifying factors (Dariusz Kim) - Related Data Home Medications Medication Instructions Recorded Confirmed Multivitamins, Thera [Multivitamin 1 tab PEG/G-TUBE DAILY 12/21/16 05/02/17 (formulary)] Levothyroxine Sodium [Synthroid] 125 mcg PEG/G-TUBE DAILY 02/17/17 05/02/17 Warfarin Sodium [Coumadin] 3 mg PEG/G-TUBE DAILY 03/09/17 05/02/17 Imbruvica 420 mg PEG/G-TUBE DAILY 04/06/17 05/02/17 Metoprolol Tartrate [Lopressor] 25 mg PEG/G-TUBE BID 05/02/17 05/02/17 Midodrine HCl [ProAmatine] 2.5 mg PEG/G-TUBE DAILY 05/02/17 05/02/17 Allergies Allergy/AdvReac Type Severity Reaction Status Date / Time amoxicillin Allergy Rash/Hives Verified 05/02/17 12:25 clavulanic acid Allergy Rash/Hives Verified 05/02/17 12:25 [From Augmentin] rituximab [From Rituxan] Allergy Anaphylaxis Verified 05/02/17 12:25 Review of Systems ROS Other: All systems not noted in ROS Statement are negative. <Saranya Yun - Last Filed: 08/30/23 14:53> ROS Other: All systems not noted in ROS Statement are negative. <Dariusz Kim - Last Filed: 08/30/23 20:40> ROS Statement: Those systems with pertinent positive or pertinent negative responses have been documented in the HPI. Past Medical History Past Medical History: Atrial Fibrillation, Cancer, COPD, Neurologic Disorder, Osteoarthritis (OA), Pneumonia, Prostate Disorder, Thyroid Disorder Additional Past Medical History / Comment(s): Pt recently admitted to [facility] on 02/17/17 with L lower lobe pneumonia, small B cell lymphoma. Other Hx: Atrial flutter with RVR, Chronic lymphocytic leukemia-has lesions on base of tongue, vocal cords and lymph nodes in L side neck, has had 2 doses chemo therapy at [facility] and is due for more chemo ThursdayMarch 10, hypogammaglobulinemia-has received IV IGg, anemia, dysphagia-NPO with peg tube-can have rare piece of ice, chronic bronchitis, pneumonia with sepsis, paroxysmal atrial fibrillation, hypothyroidism-surgery d/t nodules, viral skin rash- chickenpox rash, Fletcher's palsy L face, bilateral tinnitis. History of Any Multi-Drug Resistant Organisms: MRSA Date of last positivie culture/infection: 02/17/17 MDRO Source:: Sputum Past Surgical History: Tonsillectomy Additional Past Surgical History / Comment(s): Peg tube insertion, colonoscopies/polypectomies, rectal fissure repair, bilateral knee arthroscopies, THYROID SURGERY-1/2 removed. Past Anesthesia/Blood Transfusion Reactions: Blood Transfusion Reaction Additional Past Anesthesia/Blood Transfusion Reaction / Comment(s): GAVE BENADRYL AND RAN SLOW. Has had multiple transfusuions and has a reaction every time Past Psychological History: No Psychological Hx Reported - Past Family History Father Family Medical History: Dementia Mother Family Medical History: No Reported History <Saranya Yun - Last Filed: 08/30/23 14:53> General Exam <Saranya Yun - Last Filed: 08/30/23 14:53> <Dariusz Kim - Last Filed: 08/30/23 20:40> - General Exam Comments Initial Comments: Visual Physical Exam Vital signs reviewed General: Well-appearing, nontoxic, no acute distress. Head: Normocephalic, atraumatic Eyes: PERRLA, EOMI ENT: Airway patent Chest: Nonlabored breathing Skin: No visual rash, normal skin tone Neuro: Alert and oriented 3 Musculoskeletal: No gross abnormalities (Saranya Yun) This is a well-developed well-nourished awake alert oriented x 4 male HEENT exam normocephalic atraumatic PERRL EOMI conjunctiva clear oral pharynx reveals dry oral mucosa. Neck supple full range of motion no stridor JVD or bruits chest lungs reveal diminished breath sounds with by lateral rhonchi audible on auscultation. Heart sounds appear to be regular at this time with no murmurs. Abdomen soft the PEG site is clear with no evidence of any cellulitic involvement no drainage seen. Extremities bilaterally present symmetric no evidence of peripheral edema. Cranial nerves II through XII appear to be grossly intact. Integument appears to be clear. No evidence of depressed personality. (Dariusz Kim) Course Vital Signs 08/30/23 08/30/23 08/30/23 14:51 16:22 19:40 Temperature 98.5 F 100.1 F H 101.0 F H Pulse Rate 95 86 114 H Respiratory 20 18 16 Rate Blood Pressure 95/57 101/75 122/80 O2 Sat by Pulse 94 L 97 96 Oximetry EKG Findings - EKG Results: EKG: interpreted by ERMD (Atrial fibrillation this was interpreted by tn rate 111 QRS 104 QT/QTc 332/398) <Dariusz Kim - Last Filed: 08/30/23 20:40> Procedures - Feeding Tube Replacement Reason for Replacement: fell out Initial Tube Inserted: greater than 2 weeks Type of Tube: gastrostomy Use of Tube: medications and feeding Insertion Site Prior to Procedure: clean Tube Used for Reinsertion: other (Vanos feeding tube) Iraqi Tube Size (F): 18 Verification of Placement: auscultation Tube Secured by: G-tube attachment device Patient Tolerated Procedure: well <Dariusz Kim - Last Filed: 08/30/23 20:40> - Feeding Tube Replacement Additional Comments: No complications (Dariusz Kim) Medical Decision Making <Saranya Yun - Last Filed: 08/30/23 14:53> - Lab Data Result diagrams: 08/30/23 15:58 08/30/23 17:29 <Dariusz Kim - Last Filed: 08/30/23 20:40> - Medical Decision Making Quick note preformed and electronically signed by Saranya uYn PA-C (Saranya Yun) I did discuss the findings with the patient and family members. Patient demonstrates chronic atrial fibrillation he also has influenza type a with a fever hyponatremia he did have a PEG tube that was replaced by me and 18 Iraqi. I did discuss case with Dr. Limon the patient will be admitted. Was pt. sent in by a medical professional or institution (, PA, PLATE SENSITIZER, urgent care, hospital, or alf...) When possible be specific @ -No Did you speak to anyone other than the patient for history (EMS, parent, family, police, friend...)? What history was obtained from this source @ -Family members Did you review nursing and triage notes (agree or disagree)? Why? @ -I reviewed and agree with nursing and triage notes Were old charts reviewed (outside hosp., previous admission, EMS record, old EKG, old radiological studies, urgent care reports/EKG's, alf records)? Report findings @ -Old charts were reviewed Differential Diagnosis (chest pain, altered mental status, abdominal pain women, abdominal pain men, vaginal bleeding, weakness, fever, dyspnea, syncope, headache, dizziness, GI bleed, back pain, seizure, CVA, palpatations, mental health, musculoskeletal)? @ -Apnea, atrial fibrillation, febrile illness EKG interpreted by me (3pts min.). @ -As above EKG interpreted by me atrial fibrillation with rapid ventricular response rate of 111 QRS duration 104 QT/QTc 332/398 borderline left axis deviation nonspecific ST configuration X-rays interpreted by me (1pt min.). @ -Chest x-ray interpreted by me increased markings seen. More so on the left than the right a pneumonic process is considered CT interpreted by me (1pt min.). @ -None done U/S interpreted by me (1pt. min.). @ -None done What testing was considered but not performed or refused? (CT, X-rays, U/S, labs)? Why? @ -None What meds were considered but not given or refused? Why? @ -None Did you discuss the management of the patient with other professionals (professionals i.e. , PA, PLATE SENSITIZER, lab, RT, psych nurse, social welfare research worker, java user interface developer, teacher, inshore undersea warfare officer, telephonic case manager)? Give summary @ -No Was smoking cessation discussed for >3mins.? @ -No Was critical care preformed (if so, how long)? @ -No Were there social determinants of health that impacted care today? How? (Homelessness, low income, unemployed, alcoholism, drug addiction, transportati on, low edu. Level, literacy, decrease access to med. care, senior living, rehab)? @ -No Was there de-escalation of care discussed even if they declined (Discuss DNR or withdrawal of care, Hospice)? DNR status @ -No What co-morbidities impacted this encounter? (DM, HTN, Smoking, COPD, CAD, Cancer, CVA, ARF, Chemo, Hep., AIDS, mental health diagnosis, sleep apnea, morbid obesity)? @ -Chronic atrial fibrillation, COPD, B-cell lymphoma, CLL, PEG tube Was patient admitted / discharged? Hospital course, mention meds given and route, prescriptions, significant lab abnormalities, going to OR and other pert inent info. @ -Hospital course patient was admitted I did discuss case with the patient's family as well as with Dr. Limon. Undiagnosed new problem with uncertain prognosis? @ -No Drug Therapy requiring intensive monitoring for toxicity (Heparin, Nitro, Insulin, Cardizem)? @ -No Were any procedures done? @ -No Diagnosis/symptom? @ -Chronic atrial fibrillation, influenza type a, febrile illness, dyspnea, pneumonia, hyponatremia, PEG tube replacement Acute, or Chronic, or Acute on Chronic? @ -Default Uncomplicated (without systemic symptoms) or Complicated (systemic symptoms)? @ -Complicated Side effects of treatment? @ -No Exacerbation, Progression, or Severe Exacerbation? @ -No Poses a threat to life or bodily function? How? (Chest pain, [place], MT, pneumonia, PE, COPD, DKA, ARF, appy, cholecystitis, CVA, Diverticulitis, Homicidal, Suicidal, threat to staff... and all critical care pts) @ -Potential (Dariusz Kim) - Lab Data Lab Results 03/24/24 03/24/24 03/24/24 Range/Units 15:58 15:58 15:58 WBC 10.9 H (3.8-10.6) k/uL RBC 5.07 (4.30-5.90) m/uL Hgb 14.2 (13.0-17.5) gm/dL Hct 44.1 (39.0-53.0) % MCV 87.0 (80.0-100.0) fL MCH 28.0 (25.0-35.0) pg MCHC 32.1 (31.0-37.0) g/dL RDW 13.8 (11.5-15.5) % Plt Count 127 L (150-450) k/uL MPV 10.1 Neutrophils % 79 % Lymphocytes % 10 % Monocytes % 8 % Eosinophils % 0 % Basophils % 0 % Neutrophils # 8.6 H (1.3-7.7) k/uL Lymphocytes # 1.0 (1.0-4.8) k/uL Monocytes # 0.8 (0-1.0) k/uL Eosinophils # 0.0 (0-0.7) k/uL Basophils # 0.0 (0-0.2) k/uL Sodium (137-145) mmol/L Potassium (3.5-5.1) mmol/L Chloride (98-107) mmol/L Carbon Dioxide (22-30) mmol/L Anion Gap mmol/L BUN (9-20) mg/dL Creatinine (0.66-1.25) mg/dL Est GFR (CKD-EPI)AfAm (>60 ml/min/1.73 sqM) Est GFR (CKD-EPI)NonAf (>60 ml/min/1.73 sqM) Glucose (74-99) mg/dL Plasma Lactic Acid Jason 1.1 (0.7-2.0) mmol/L Calcium (8.4-10.2) mg/dL Magnesium (1.6-2.3) mg/dL Total Bilirubin (0.2-1.3) mg/dL AST (17-59) U/L ALT (4-49) U/L Alkaline Phosphatase (38-126) U/L Total Protein (6.3-8.2) g/dL Albumin (3.5-5.0) g/dL Urine Color Urine Appearance (Clear) Urine pH (5.0-8.0) Ur Specific Elsie (1.001-1.035) Urine Protein (Negative) Urine Glucose (UA) (Negative) Urine Ketones (Negative) Urine Blood (Negative) Urine Nitrite (Negative) Urine Bilirubin (Negative) Urine Urobilinogen (<2.0) mg/dL Ur Leukocyte Esterase (Negative) Urine RBC (0-5) /hpf Urine WBC (0-5) /hpf Ur Squamous Epith Cells (0-4) /hpf Urine Mucus (None) /hpf Influenza Type A (PCR) Detected A (Not Detectd) Influenza Type B (PCR) Not Detected (Not Detectd) RSV (PCR) Not Detected (Not Detectd) SARS-CoV-2 (PCR) Not Detected (Not Detectd) 08/30/23 08/30/23 08/30/23 Range/Units 17:29 17:29 19:50 WBC (3.8-10.6) k/uL RBC (4.30-5.90) m/uL Hgb (13.0-17.5) gm/dL Hct (39.0-53.0) % MCV (80.0-100.0) fL MCH (25.0-35.0) pg MCHC (31.0-37.0) g/dL RDW (11.5-15.5) % Plt Count (150-450) k/uL MPV Neutrophils % % Lymphocytes % % Monocytes % % Eosinophils % % Basophils % % Neutrophils # (1.3-7.7) k/uL Lymphocytes # (1.0-4.8) k/uL Monocytes # (0-1.0) k/uL Eosinophils # (0-0.7) k/uL Basophils # (0-0.2) k/uL Sodium 123 L (137-145) mmol/L Potassium 4.2 (3.5-5.1) mmol/L Chloride 91 L (98-107) mmol/L Carbon Dioxide 25 (22-30) mmol/L Anion Gap 7 mmol/L BUN 21 H (9-20) mg/dL Creatinine 0.80 (0.66-1.25) mg/dL Est GFR (CKD-EPI)AfAm >90 (>60 ml/min/1.73 sqM) Est GFR (CKD-EPI)NonAf 84 (>60 ml/min/1.73 sqM) Glucose 86 (74-99) mg/dL Plasma Lactic Acid Jason (0.7-2.0) mmol/L Calcium 7.7 L (8.4-10.2) mg/dL Magnesium 2.1 (1.6-2.3) mg/dL Total Bilirubin 1.0 (0.2-1.3) mg/dL AST 36 (17-59) U/L ALT 17 (4-49) U/L Alkaline Phosphatase 93 (38-126) U/L Total Protein 4.7 L (6.3-8.2) g/dL Albumin 2.8 L (3.5-5.0) g/dL Urine Color Yellow Urine Appearance Clear (Clear) Urine pH 7.0 (5.0-8.0) Ur Specific Elsie 1.019 (1.001-1.035) Urine Protein 1+ H (Negative) Urine Glucose (UA) Negative (Negative) Urine Ketones 1+ H (Negative) Urine Blood Negative (Negative) Urine Nitrite Negative (Negative) Urine Bilirubin Negative (Negative) Urine Urobilinogen 3.0 (<2.0) mg/dL Ur Leukocyte Esterase Negative (Negative) Urine RBC 1 (0-5) /hpf Urine WBC 2 (0-5) /hpf Ur Squamous Epith Cells <1 (0-4) /hpf Urine Mucus Rare H (None) /hpf Influenza Type A (PCR) (Not Detectd) Influenza Type B (PCR) (Not Detectd) RSV (PCR) (Not Detectd) SARS-CoV-2 (PCR) (Not Detectd) Disposition <Saranya Yun - Last Filed: 08/30/23 14:53> Time of Disposition: 20:00 Decision Date: 08/30/23 Decision Time: 20:40 <Dariusz Kim - Last Filed: 08/30/23 20:40> Clinical Impression: Rapid atrial fibrillation, Influenza A, Febrile illness, acute, Hyponatremia syndrome, PEG tube malfunction Disposition: ADMITTED IP TO THIS HOSP Condition: Fair Referrals: None,Stated [REFERRING] - 1-2 days
[2023-08-30 16:18] LABS: Basophils % (A) 0 %; Eosinophils % (A) 0 %; HCT 44.1 % (39.0-53.0); HGB 14.2 gm/dL (13.0-17.5); Lymphocytes % (A) 10 %; MCHC 32.1 g/dL (31.0-37.0); Mean Platelet Volume 10.1; Monocytes # (A) 0.8 k/uL (0-1.0); Monocytes % (A) 8 %; Neutrophils # (A) 8.6 k/uL (1.3-7.7); Neutrophils % (A) 79 %; Platelet Count 127 k/uL (150-450); RBC 5.07 m/uL (4.30-5.90); RDW 13.8 % (11.5-15.5); WBC 10.9 k/uL (3.8-10.6)
--- NOTE | 2023-08-30 16:38 | XR ---
EXAMINATION TYPE: XR chest 2V DATE OF EXAM: 08/30/2023 4:34 PM CLINICAL INDICATION:Male, 82 years old with history of fever, dyspnea; PHH COMPARISON: Chest radiographs from 04/06/2017 TECHNIQUE: XR chest 2V Frontal and lateral views of the chest. FINDINGS: Lungs/Pleura: Bilateral multifocal airspace opacities are identified, left greater than right. There is a small left pleural effusion. Pulmonary vascularity: Unremarkable. Heart/mediastinum: Cardiomediastinal silhouette is unremarkable. Musculoskeletal: No acute osseous pathology. IMPRESSION: Left greater than right multifocal airspace opacities concerning for underlying pneumonia, with assoc iated small left pleural effusion.
[2023-08-30 18:21] LABS: ALT 17 U/L (4-49); AST 36 U/L (17-59); African American GFR (CKD) >90 (>60 ml/min/1.73 sqM); Albumin 2.8 g/dL (3.5-5.0); Alkaline Phosphatase 93 U/L (38-126); Anion Gap 7 mmol/L; Blood Urea Nitrogen 21 mg/dL (9-20); Calcium 7.7 mg/dL (8.4-10.2); Carbon Dioxide 25 mmol/L (22-30); Chloride 91 mmol/L (98-107); Glucose 86 mg/dL (74-99); Non-African American GFR(CKD) 84 (>60 ml/min/1.73 sqM); Potassium 4.2 mmol/L (3.5-5.1); Sodium 123 mmol/L (137-145); Total Protein 4.7 g/dL (6.3-8.2)
[2023-08-30 20:08] LABS: Appearance,Urine Clear (Clear); Bilirubin,Urine Negative (Negative); Blood,Urine Negative (Negative); Color,Urine Yellow; Glucose,Urine (UA) Negative (Negative); Ketones,Urine 1+ (Negative); Leukocyte Esterase,Urine Negative (Negative); Mucus,Urine Rare /hpf; Nitrite,Urine Negative (Negative); Protein,Urine 1+ (Negative); RBC,Urine 1 /hpf (0-5); Specific Gravity,Urine 1.019 (1.001-1.035); Squamous Epithelial Cell,Urine <1 /hpf (0-4); WBC,Urine 2 /hpf (0-5)
[2023-08-30] MEDS: ACETAMINOPHEN TAB 325 MG TAB PO STA (20:16)
[2023-08-30] MEDS ORDERED: NALOXONE 0.4 MG/ML 1 ML VIAL IV PRN (20:40)
[2023-08-30] MEDS ORDERED: ACETAMINOPHEN TAB 325 MG TAB PO PRN (20:40)
[2023-08-30] MEDS: SODIUM CHLORIDE 0.9% 1,000 ML IV STA (21:01)
[2023-08-30] MEDS: SODIUM CHLORIDE 0.9% 500 ML 500 ML IV STA (21:01)
[2023-08-31] MEDS ORDERED: PNEUMONIA PROTOCOL UTILIZED 1 EACH MISC PO PRN (10:34)
[2023-08-31] MEDS ORDERED: ACETAMINOPHEN TAB 325 MG TAB PEG/G-TUBE PRN (10:37)
[2023-08-31] MEDS ORDERED: ACETAMINOPHEN IV (For NPO) 1,000 MG in EMPTY BAG 1 BAG IVPB PRN (10:41)
--- NOTE | 2023-08-31 10:44 | P.HPIM ---
History of Present Illness H&P Date: 08/31/23 Chief Complaint: Fever, malfunction of PEG tube * 82-year-old gentleman with past medical history significant for chronic lymphocytic leukemia, history of Fletcher's palsy, history of paroxysmal atrial fibrillation, history of dysphagia with feeding tube in place, hypothyroidism, presents to the emergency department with complaints of fever, shortness of breath. Patient was brought in by family for noted to have G-tube falling out. Patient has been nonproductive cough, feeling weak and shortness of breath going on for the last 48 hours. Patient does have a PEG tube which has been in for approximately a year and a half and was pulled about 2 hours prior to presentation. * Workup initiated in ER included CBC which showed WBC of 10.9 hemoglobin 14.2 platelet count of 127, serum chemistry obtained showed sodium 123 potassium 4.2 chloride 91 BUN 21 creatinine 0.8 calcium 7.7, * Patient tested positive for influenza A, negative for RSV and coronavirus * While in ER patient was given 1 L of fluid bolus, patient PEG tube was placed by ED team and will be admitted for management of influenza and A-fib RVR and multifocal pneumonia REVIEW OF SYSTEMS: Fever, cough, shortness of breath CONSTITUTIONAL: No fever, no malaise, no fatigue. HEENT: No recent visual problems or hearing problems. Denied any sore throat. CARDIOVASCULAR: No chest pain, orthopnea, PND, no palpitations, no syncope. PULMONARY: Fever, cough, shortness of breath GASTROINTESTINAL: No diarrhea, no nausea, no vomiting, no abdominal pain. NEUROLOGICAL: No headaches, no weakness, no numbness. HEMATOLOGICAL: Denies any bleeding or petechiae. GENITOURINARY: Denies any burning micturition, frequency, or urgency. MUSCULOSKELETAL/RHEUMATOLOGICAL: Denies any joint pain, swelling, or any muscle pain. ENDOCRINE: Denies any polyuria or polydipsia. PHYSICAL EXAMINATION: GENERAL: The patient is alert and oriented x 2, HEENT: Pupils are round and equally reacting to light. EOMI. CARDIOVASCULAR: S1 and S2 present. No murmurs, rubs, or gallops. PULMONARY: Chest is clear to auscultation, no wheezing or crackles. ABDOMEN: Soft, nontender, nondistended, normoactive bowel sounds. PEG tube in place MUSCULOSKELETAL: No joint swelling or deformity. EXTREMITIES: No cyanosis, clubbing, or pedal edema. NEUROLOGICAL: Gross neurological examination did not reveal any focal deficits. SKIN: No rashes. Past Medical History Past Medical History: Atrial Fibrillation, Cancer, COPD, Neurologic Disorder, Osteoarthritis (OA), Pneumonia, Prostate Disorder, Thyroid Disorder Additional Past Medical History / Comment(s): Pt recently admitted to [facility] on 02/17/17 with L lower lobe pneumonia, small B cell lymphoma. Other Hx: Atrial flutter with RVR, Chronic lymphocytic leukemia-has lesions on base of tongue, vocal cords and lymph nodes in L side neck, has had 2 doses chemo therapy at [facility] and is due for more chemo ThursdayMarch 10, hypogammaglobulinemia-has received IV IGg, anemia, dysphagia-NPO with peg tube-can have rare piece of ice, chronic bronchitis, pneumonia with sepsis, paroxysmal atrial fibrillation, hypothyroidism-surgery d/t nodules, viral skin rash- chickenpox rash, Fletcher's palsy L face, bilateral tinnitis. History of Any Multi-Drug Resistant Organisms: MRSA Date of last positivie culture/infection: 02/17/17 MDRO Source:: Sputum Past Surgical History: Tonsillectomy Additional Past Surgical History / Comment(s): Peg tube insertion, colonoscopies/polypectomies, rectal fissure repair, bilateral knee arth roscopies, THYROID SURGERY-1/2 removed. Past Anesthesia/Blood Transfusion Reactions: Blood Transfusion Reaction Additional Past Anesthesia/Blood Transfusion Reaction / Comment(s): GAVE BENADRYL AND RAN SLOW. Has had multiple transfusuions and has a reaction every time Past Psychological History: No Psychological Hx Reported - Past Family History Father Family Medical History: Dementia Mother Family Medical History: No Reported History Medications and Allergies Home Medications Medication Instructions Recorded Confirmed Type Multivitamins, Thera [Multivitamin 1 tab PEG/G-TUBE DAILY 12/21/16 05/02/17 History (formulary)] Levothyroxine Sodium [Synthroid] 125 mcg PEG/G-TUBE DAILY 02/17/17 05/02/17 History Warfarin Sodium [Coumadin] 3 mg PEG/G-TUBE DAILY 03/09/17 05/02/17 History Imbruvica 420 mg PEG/G-TUBE DAILY 04/06/17 05/02/17 History Metoprolol Tartrate [Lopressor] 25 mg PEG/G-TUBE BID 05/02/17 05/02/17 History Midodrine HCl [ProAmatine] 2.5 mg PEG/G-TUBE DAILY 05/02/17 05/02/17 History Allergies Allergy/AdvReac Type Severity Reaction Status Date / Time amoxicillin Allergy Rash/Hives Verified 05/02/17 12:25 clavulanic acid Allergy Rash/Hives Verified 05/02/17 12:25 [From Augmentin] rituximab [From Rituxan] Allergy Anaphylaxis Verified 05/02/17 12:25 Physical Exam Vitals: Vital Signs Temp Pulse Resp BP Pulse Ox 08/31/23 07:32 100 20 101/62 100 08/31/23 05:22 71 16 107/71 96 08/31/23 02:06 97.6 F 81 16 93/64 96 08/30/23 22:16 98.1 F 70 18 98/66 97 08/30/23 19:40 101.0 F H 114 H 16 122/80 96 08/30/23 16:22 100.1 F H 86 18 101/75 97 08/30/23 14:51 98.5 F 95 20 95/57 94 L Results CBC & Chem 7: 08/30/23 15:58 08/30/23 17:29 Labs: Abnormal Lab Results - Last 24 Hours (Table) 08/30/23 08/30/23 08/30/23 Range/Units 15:58 15:58 17:29 WBC 10.9 H (3.8-10.6) k/uL Plt Count 127 L (150-450) k/uL Neutrophils # 8.6 H (1.3-7.7) k/uL Sodium 123 L (137-145) mmol/L Chloride 91 L (98-107) mmol/L BUN 21 H (9-20) mg/dL Calcium 7.7 L (8.4-10.2) mg/dL Total Protein 4.7 L (6.3-8.2) g/dL Albumin 2.8 L (3.5-5.0) g/dL Urine Protein (Negative) Urine Ketones (Negative) Urine Mucus (None) /hpf Influenza Type A (PCR) Detected A (Not Detectd) 08/30/23 Range/Units 19:50 WBC (3.8-10.6) k/uL Plt Count (150-450) k/uL Neutrophils # (1.3-7.7) k/uL Sodium (137-145) mmol/L Chloride (98-107) mmol/L BUN (9-20) mg/dL Calcium (8.4-10.2) mg/dL Total Protein (6.3-8.2) g/dL Albumin (3.5-5.0) g/dL Urine Protein 1+ H (Negative) Urine Ketones 1+ H (Negative) Urine Mucus Rare H (None) /hpf Influenza Type A (PCR) (Not Detectd) Assessment and Plan Assessment: Assessment and plan * Multifocal pneumonia superimposed bacterial pneumonia with influenza A * Influenza A pneumonia * Paroxysmal atrial fibrillation with rapid ventricular response * Acute hyponatremia * Moderate protein calorie malnutrition * PEG tube malfunction * Hypothyroid * History of CLL * In regards to multifocal pneumonia chest x-ray does show multifocal airspace opacity, elevated WBC count. Continue patient on Levaquin to complete 5-day course * In regards to influenza A, started on Tamiflu to complete 5-day course * Regards to paroxysmal atrial fibrillation continue cardiac monitoring, continue metoprolol * In regards to protein calorie malnutrition, nutrition consulted continue tube feeding * CODE STATUS is full code Time with Patient: Greater than 30
[2023-08-31 11:00] LABS: Basophils % (A) 0 %; Eosinophils % (A) 0 %; HCT 45.4 % (39.0-53.0); HGB 14.2 gm/dL (13.0-17.5); Lymphocytes % (A) 13 %; MCH 27.4 pg (25.0-35.0); MCHC 31.3 g/dL (31.0-37.0); MCV 87.5 fL (80.0-100.0); Mean Platelet Volume 10.3; Monocytes # (A) 0.6 k/uL (0-1.0); Monocytes % (A) 8 %; Neutrophils # (A) 5.5 k/uL (1.3-7.7); Neutrophils % (A) 75 %; Platelet Count 122 k/uL (150-450); RBC 5.18 m/uL (4.30-5.90); RDW 13.6 % (11.5-15.5); WBC 7.4 k/uL (3.8-10.6)
--- NOTE | 2023-08-31 11:10 | XR ---
EXAMINATION TYPE: XR chest 2V DATE OF EXAM: 08/31/2023 COMPARISON: 08/30/2023 INDICATION: Productive cough short of breath TECHNIQUE: Frontal and lateral views of the chest are obtained. FINDINGS: The heart size is normal. The pulmonary vasculature is normal. There is an irregular density in the periphery of the left lung measuring 2.8 cm, present previously. There is infiltrate through the left lower lobe. Posterior pleural effusion appears to be present. M inimal right pleural effusion may be present. Findings are similar to comparison. IMPRESSION: 1. Left lower lobe infiltrate with pleural effusion. 2. Peripheral left upper lung irregular density. Infiltrate and mass are within the differential. Thi s should be followed to clearing.
[2023-08-31 11:16] LABS: African American GFR (CKD) >90 (>60 ml/min/1.73 sqM); Anion Gap 7 mmol/L; Blood Urea Nitrogen 16 mg/dL (9-20); Calcium 7.7 mg/dL (8.4-10.2); Carbon Dioxide 23 mmol/L (22-30); Chloride 97 mmol/L (98-107); Glucose 71 mg/dL (74-99); Non-African American GFR(CKD) >90 (>60 ml/min/1.73 sqM); Potassium 4.2 mmol/L (3.5-5.1); Sodium 127 mmol/L (137-145)
[2023-08-31] MEDS: LEVOFLOXACIN 750MG-D5W PMX 750 MG in DEXTROSE/WATER 1 150ML.BAG IVPB SCH (11:48)
[2023-08-31] MEDS: SODIUM CHLORIDE 0.9% 1,000 ML IV SCH (11:53)
[2023-08-31] MEDS: METOPROLOL TARTRATE 25 MG TAB PEG/G-TUBE SCH ×2 (11:54→12:03)
[2023-08-31] MEDS: LEVOTHYROXINE 125 MCG TAB PEG/G-TUBE SCH (11:55)
[2023-08-31] MEDS: MIDODRINE 5 MG TAB PEG/G-TUBE SCH (11:55)
[2023-08-31] MEDS: OSELTAMIVIR 75 MG CAP PO SCH (12:03)
[2023-08-31] MEDS: IPRATROPIUM-ALBUTEROL 3 ML NEB INHALATION SCH (12:16)
[2023-08-31] MEDS: OSELTAMIVIR 60 MG/10 ML ORAL SYRINGE PEG/G-TUBE SCH (13:28)
[2023-08-31] MEDS ORDERED: busPIRone HCl 5 MG TAB PEG/G-TUBE PRN (13:41)
[2023-08-31] MEDS: IMBRUVICA 420 MG PEG/G-TUBE SCH (15:10)
[2023-08-31] MEDS: APIXABAN 2.5 MG TABLET PEG/G-TUBE SCH (16:47)
[2023-08-31] MEDS: FLECAINIDE 50 MG TAB PEG/G-TUBE SCH (16:47)
--- NOTE | 2023-08-31 18:48 | P.CONS ---
History of Present Illness - Reason for Consult Consult date: 08/31/23 Hx of leukemia Requesting physician: Amy Ramirez - Chief Complaint SOB, G-tube dislodged - History of Present Illness Mr. Lopez is an 82-year-old male with a history of CLL diagnosed in 2007. His CLL was mostly asymptomatic so, he was never on any active treatment until 2016. He was treated with rituximab and Bendamustine at [facility]. He was started on ibrutinib after completing that treatment. Last seen in our office May 11, 2017 for IVIG infusion, he only received 1 of 2 doses, has not been seen since. Patient's reports that they just recently moved back to the area from [place] to be with their family. Patient is currently admitted to the hospital with complaints of G-tube falling out, fevers and shortness of breath. He tested positive for flu a, found to be in A-fib with RVR with multifocal pneumonia, Cardiology consulted. reports that he was last seen in [place] by his Health Information Technician in March, at that time she states they were told that his leukemia was well under control and he only had to be seen about every 3 months for lab work. Patient is short of breath, very harsh cough, he feels pretty weak right now, no chest pain, nausea or vomiting, acute changes in bowel or bladder habits. Review of Systems 10 point ROS is neg except as stated in HPI Past Medical History Past Medical History: Atrial Fibrillation, Cancer, COPD, Neurologic Disorder, Osteoarthritis (OA), Pneumonia, Prostate Disorder, Thyroid Disorder Additional Past Medical History / Comment(s): Pt recently admitted to [facility] on 02/17/17 with L lower lobe pneumonia, small B cell lymphoma. 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 History of Any Multi-Drug Resistant Organisms: MRSA Year Discovered:: 02/17/17 MDRO Source:: Sputum Past Surgical History: Tonsillectomy Additional Past Surgical History / Comment(s): Peg tube insertion, colonoscopies/polypectomies, rectal fissure repair, bilateral knee arthroscopies, THYROID SURGERY-1/2 removed. Past Anesthesia/Blood Transfusion Reactions: Blood Transfusion Reaction Additional Past Anesthesia/Blood Transfusion Reaction / Comm: GAVE BENADRYL AND RAN SLOW. Has had multiple transfusuions and has a reaction every time Past Psychological History: No Psychological Hx Reported - Past Family History Father Family Medical History: Dementia Mother Family Medical History: No Reported History Medications and Allergies Home Medications Medication Instructions Recorded Confirmed Type Multivitamins, Thera [Multivitamin 1 tab PEG/G-TUBE DAILY 12/21/16 08/31/23 History (formulary)] Imbruvica 420 mg PEG/G-TUBE DAILY 04/06/17 08/31/23 History Apixaban [Eliquis] 2.5 mg PEG/G-TUBE BID 08/31/23 08/31/23 History Flecainide [Tambocor] 50 mg PEG/G-TUBE Q12HR 08/31/23 08/31/23 History busPIRone HCl [Buspar] 5 mg PEG/G-TUBE TID PRN 08/31/23 08/31/23 History Allergies Allergy/AdvReac Type Severity Reaction Status Date / Time amoxicillin Allergy Rash/Hives Verified 08/31/23 10:58 clavulanic acid Allergy Rash/Hives Verified 08/31/23 10:58 [From Augmentin] rituximab [From Rituxan] Allergy Anaphylaxis Verified 08/31/23 10:58 Physical Exam Vitals: Vital Signs Temp Pulse Resp BP Pulse Ox 08/31/23 12:29 116 H 08/31/23 12:21 96 08/31/23 07:32 100 20 101/62 100 08/31/23 05:22 71 16 107/71 96 08/31/23 02:06 97.6 F 81 16 93/64 96 08/30/23 22:16 98.1 F 70 18 98/66 97 08/30/23 19:40 101.0 F H 114 H 16 122/80 96 08/30/23 16:22 100.1 F H 86 18 101/75 97 08/30/23 14:51 98.5 F 95 20 95/57 94 L - Constitutional General appearance: average body habitus, cooperative, mild distress - EENT Dry mucous membranes Eyes: anicteric sclerae, EOMI ENT: hearing grossly normal - Neck Neck: no lymphadenopathy - Respiratory Respirations mildly labored, cough is harsh Respiratory: bilateral: rhonchi - Cardiovascular Heart sounds: normal: S1, S2 Abnormal Heart Sounds: no systolic murmur, no diastolic murmur, no rub, no S3 Gallop, no S4 Gallop, no click, no other leg Peripheral Edema: right: Other (Right upper extremity swelling, chronic), bilateral: None - Gastrointestinal PEG tube in place, redness of the skin, mostly scar tissue, no unusual drainage on the drain sponge. General gastrointestinal: no absent bowel sounds, no decreased bowel sounds, no distended, no hepatomegaly, no hyperactive bowel sounds, normal bowel sounds, no organomegaly, no rigid, no scaphoid, soft, no splenomegaly, no tenderness, no umbilical hernia, no ventral hernia - Neurologic Neurologic: CNII-XII intact - Musculoskeletal Musculoskeletal: generalized weakness - Psychiatric Psychiatric: A&O x's 3, appropriate affect, intact judgment & insight Results CBC & Chem 7: 08/31/23 09:52 08/31/23 09:52 Labs: Abnormal Lab Results - Last 24 Hours (Table) 08/30/23 08/30/23 08/30/23 Range/Units 15:58 15:58 17:29 WBC 10.9 H (3.8-10.6) k/uL Plt Count 127 L (150-450) k/uL Neutrophils # 8.6 H (1.3-7.7) k/uL Sodium 123 L (137-145) mmol/L Chloride 91 L (98-107) mmol/L BUN 21 H (9-20) mg/dL Creatinine (0.66-1.25) mg/dL Glucose (74-99) mg/dL Calcium 7.7 L (8.4-10.2) mg/dL Total Protein 4.7 L (6.3-8.2) g/dL Albumin 2.8 L (3.5-5.0) g/dL Urine Protein (Negative) Urine Ketones (Negative) Urine Mucus (None) /hpf Influenza Type A (PCR) Detected A (Not Detectd) 03/08/31/23 08/31/23 Range/Units 19:50 09:52 09:52 WBC (3.8-10.6) k/uL Plt Count 122 L (150-450) k/uL Neutrophils # (1.3-7.7) k/uL Sodium 127 L (137-145) mmol/L Chloride 97 L (98-107) mmol/L BUN (9-20) mg/dL Creatinine 0.60 L (0.66-1.25) mg/dL Glucose 71 L (74-99) mg/dL Calcium 7.7 L (8.4-10.2) mg/dL Total Protein (6.3-8.2) g/dL Albumin (3.5-5.0) g/dL Urine Protein 1+ H (Negative) Urine Ketones 1+ H (Negative) Urine Mucus Rare H (None) /hpf Influenza Type A (PCR) (Not Detectd) Chest x-ray: report reviewed Assessment and Plan (1) Influenza A Current Visit: Yes Status: Acute Priority: High Code(s): J10.1 - FLU DUE TO OTH IDENT INFLUENZA VIRUS W OTH RESP MANIFEST SNOMED Code(s): 030680849 (2) PEG tube malfunction Current Visit: Yes Status: Acute Priority: High Code(s): K94.23 - GASTROSTOMY MALFUNCTION SNOMED Code(s): 794397653 (3) CLL (chronic lymphocytic leukemia) Current Visit: No Status: Chronic Priority: Low Code(s): C91.10 - CHRONIC LYMPHOCYTIC LEUK OF B-CELL TYPE NOT ACHIEVE REMIS SNOMED Code(s): 09153206 Plan: Influenza A -Treatment per Attending -Hold patient's Imbruvica while acutely ill PEG tube dislodgment -Tube has already been replaced -Patient reports that they do not use standard tube feedings as they cause patient diarrhea. Patient's blends up food and puts it through the PEG tube as well as nutritional shakes that she purchases. She has been doing this for quite some time. Patient's is requesting that she be allowed to give him the nutritional shakes that he has been receiving for the past 5 years. She also give pt plenty of free water through the PEG as well. will defer to Attending and Dietitian to discuss with pt . Chronic lymphocytic leukemia -Diagnosis and treatment as described in HPI. -Patient has been on Imbruvica since at least 2017. He has tolerated well. Patient states they had a good report from the Health Information Technician in [place] last time pt was seen. -They are moving back locally and will need to reestablish with Dr. Rucker, will get that planned. Will be sure to get Imbruvica back on schedule for prescribing -Hold Imbruvica while treating acute illness
--- NOTE | 2023-08-31 22:24 | CONS ---
CONSULTATION Mr. Heri Lopez is a gentleman who used to live in [place], moved to [place], came back 2 months ago. He carries a diagnosis of paroxysmal atrial flutter and fibrillation, on flecainide 50 mg b.i.d. and also has had Fletcher palsy. He has laryngeal cancer, which has made his speech somewhat difficult and also chronic lymphatic leukemia. He is here because of having had some PEG tube issues, but this PEG tube has been placed back in. He cannot swallow because of his laryngeal cancer and related issues. However, he is in atrial fibrillation. The rate is moderately rapid. He is resting comfortably, looks somewhat under nourished. No chest pain or shortness of breath. His PEG tube has been put back in place. He has underlying history of CLL and also laryngeal cancer. MEDICATIONS: At home include flecainide 50 mg b.i.d., Eliquis 2.5 mg b.i.d. He takes BuSpar and also some Imbruvica for his CLL and takes Synthroid at 88 mcg daily. PHYSICAL EXAMINATION: VITAL SIGNS: Blood pressure 108/70; pulse rate about 90 to 100, irregular. HEENT: Unremarkable. Fundus was not examined. NECK: Supple. No JVD. HEART: S1 and S2 heard normally. Irregular rhythm noted, short systolic murmur noted. LUNGS: Revealed diminished air entry. ABDOMEN: Soft. LOWER EXTREMITIES: Diminished pulses. CENTRAL NERVOUS SYSTEM: Normal. DIAGNOSTIC DATA: EKG revealed atrial fib with moderate ventricular rate. IMPRESSION: 1. Atrial fibrillation, also some rhythm strips look like flutter with moderate rate. 2. Chronic lymphocytic leukemia. 3. Laryngeal carcinoma. 4. History of Fletcher palsy. RECOMMENDATION: I would recommend that we resume his flecainide and also a small dose of metoprolol tartrate t.i.d. through PEG tube, and resume his Synthroid; and based on clinical course, we will make further recommendations. Discussed my thoughts in detail with the patient and family. MMODL / IJN: [id number] /
[2023-09-01] MEDS ORDERED: ENOXAPARIN 40 MG/0.4 ML SYRINGE SQ SCH (09:00)
[2023-09-01 09:52] LABS: HCT 41.5 % (39.0-53.0); HGB 13.1 gm/dL (13.0-17.5); MCH 27.4 pg (25.0-35.0); MCHC 31.5 g/dL (31.0-37.0); MCV 86.9 fL (80.0-100.0); Mean Platelet Volume 9.8; Platelet Count 149 k/uL (150-450); RBC 4.77 m/uL (4.30-5.90); RDW 13.8 % (11.5-15.5); WBC 5.4 k/uL (3.8-10.6)
[2023-09-01 10:01] LABS: African American GFR (CKD) >90 (>60 ml/min/1.73 sqM); Anion Gap 7 mmol/L; Blood Urea Nitrogen 15 mg/dL (9-20); Calcium 7.5 mg/dL (8.4-10.2); Carbon Dioxide 20 mmol/L (22-30); Chloride 99 mmol/L (98-107); Glucose 82 mg/dL (74-99); Non-African American GFR(CKD) >90 (>60 ml/min/1.73 sqM); Potassium 3.5 mmol/L (3.5-5.1); Sodium 126 mmol/L (137-145)
[2023-09-01] MEDS: DILTIAZEM 125 MG in SODIUM CHLORIDE 0.9% 100 ML IV SCH (10:05)
[2023-09-01] MEDS: DILTIAZEM DRIP BOLUS FROM BAG 1 MG SOLN IV ONE (10:05)
[2023-09-01 11:14] VITALS: BMI 21.5
--- NOTE | 2023-09-01 12:14 | P.PN ---
Subjective Progress Note Date: 09/01/23 * 82-year-old gentleman with past medical history significant for chronic lymphocytic leukemia, history of Fletcher's palsy, history of paroxysmal atrial fibrillation, history of dysphagia with feeding tube in place, hypothyroidism, presents to the emergency department with complaints of fever, shortness of br eath. Patient was brought in by family for noted to have G-tube falling out. Patient has been nonproductive cough, feeling weak and shortness of breath going on for the last 48 hours. Patient does have a PEG tube which has been in for approximately a year and a half and was pulled about 2 hours prior to presentation. * Workup initiated in ER included CBC which showed WBC of 10.9 hemoglobin 14.2 platelet count of 127, serum chemistry obtained showed sodium 123 potassium 4.2 chloride 91 BUN 21 creatinine 0.8 calcium 7.7, * Patient tested positive for influenza A, negative for RSV and coronavirus * While in ER patient was given 1 L of fluid bolus, patient PEG tube was placed by ED team and will be admitted for management of influenza and A-fib RVR and multifocal pneumonia * 09/01/23: Patient seen and evaluated in the emergency room, overnight patient PEG tube dislodged, general surgery consulted, care plan discussed with son and at bedside they were frustrated regarding care plan. They were explained that we will call surgery to assist with PEG tube placement. Patient medications to be resumed. licensing manager was called as well to be part of conversation. Multiple questions were answered during the conversation family was explained that patient continues to remain ill from underlying comorbidities including influenza, and he would need to be in the hospital for another at least 48 hours. IV access was obtained as well. Cardiology has been on consult as well, oncology has been consulted. Nutrition is on consult will continue to follow-up on blood work REVIEW OF SYSTEMS: Fever, cough, shortness of breath CONSTITUTIONAL: No fever, no malaise, no fatigue. HEENT: No recent visual problems or hearing problems. Denied any sore throat. CARDIOVASCULAR: No chest pain, orthopnea, PND, no palpitations, no syncope. PULMONARY: Fever, cough, shortness of breath GASTROINTESTINAL: No diarrhea, no nausea, no vomiting, no abdominal pain. NEUROLOGICAL: No headaches, no weakness, no numbness. HEMATOLOGICAL: Denies any bleeding or petechiae. GENITOURINARY: Denies any burning micturition, frequency, or urgency. MUSCULOSKELETAL/RHEUMATOLOGICAL: Denies any joint pain, swelling, or any muscle pain. ENDOCRINE: Denies any polyuria or polydipsia. PHYSICAL EXAMINATION: GENERAL: The patient is alert and oriented x 3, HEENT: Pupils are round and equally reacting to light. EOMI. CARDIOVASCULAR: S1 and S2 present. Tachycardia PULMONARY: Improved air entry bilateral ABDOMEN: Soft, nontender, nondistended, normoactive bowel sounds. PEG tube dislodged overnight 08/31 MUSCULOSKELETAL: No joint swelling or deformity. EXTREMITIES: No cyanosis, clubbing, or pedal edema. NEUROLOGICAL: Gross neurological examination did not reveal any focal deficits. SKIN: No rashes. Assessment and plan * Multifocal pneumonia superimposed bacterial pneumonia with influenza A * Influenza A pneumonia * Paroxysmal atrial fibrillation with rapid ventricular response * PEG tube malfunction * Acute hyponatremia * Moderate protein calorie malnutrition * Hypothyroid * History of CLL * In regards to multifocal pneumonia chest x-ray does show multifocal airspace opacity, elevated WBC count. Continue patient on Levaquin to complete 5-day course, day 2 of 5 * In regards to influenza A, started on Tamiflu to complete 5-day course, on hold till PEG tube till not replaced * Regards to paroxysmal atrial fibrillation continue cardiac monitoring, continue metoprolol once PEG tube replaced * In regards to protein calorie malnutrition, nutrition consulted continue tube feeding, once PEG tube replaced * In regards to history of CLL patient seen by oncology Imbruvica on hold while acute illness a ongoing Objective - Vital Signs Vital signs: Vital Signs Temp 97.6 F 08/31/23 02:06 Pulse 108 H 09/01/23 07:52 Resp 18 09/01/23 07:00 BP 105/73 09/01/23 07:00 Pulse Ox 90 L 09/01/23 03:00 FiO2 - Labs CBC & Chem 7: 09/01/23 08:56 09/01/23 08:56 Labs: Abnormal Lab Results - Last 24 Hours (Table) 08/31/23 08/31/23 Range/Units 09:52 09:52 Plt Count 122 L (150-450) k/uL Sodium 127 L (137-145) mmol/L Chloride 97 L (98-107) mmol/L Creatinine 0.60 L (0.66-1.25) mg/dL Glucose 71 L (74-99) mg/dL Calcium 7.7 L (8.4-10.2) mg/dL
[2023-09-01 13:30] LABS: Glucose,Whole Blood 90 mg/dL (70-110)
--- NOTE | 2023-09-01 14:29 | P.GSCN ---
History of Present Illness Consult date: 09/01/23 History of present illness: CHIEF COMPLAINT: PEG tube fell out HISTORY OF PRESENT ILLNESS: This is a 82-year-old male with a known history of CLL and lymphoma. He has had a PEG tube over 18 months. PEG tube initially fell out on Thursday and was replaced in the ER. And again last night PEG tube was pulled out. Patient reports that he is unable to have an EGD completed due to issues with the lymphoma in the neck area. Patient also with his influenza A positive. PAST MEDICAL HISTORY: Atrial Fibrillation, Cancer, COPD, Neurologic Disorder, Osteoarthritis (OA), Pneumonia, Prostate Disorder, Thyroid Disorder, small B cell lymphoma. Other Hx: Atrial flutter with RVR, Chronic lymphocytic leukemia-has lesions on base of tongue, vocal cords and lymph nodes in L side neck, has had 2 doses [address] therapy [address] [facility] and is due for more chemo ThursdayMarch 10, hypogammaglobulinemia-has received IV IGg, anemia, dysphagia-NPO with peg tube- can have rare piece of ice, chronic bronchitis, pneumonia with sepsis, paroxysmal atrial fibrillation, hypothyroidism-surgery d/t nodules, viral skin rash- chickenpox rash, Fletcher's palsy L face, bilateral tinnitis. PAST SURGICAL HISTORY: Peg tube insertion, colonoscopies/polypectomies, rectal fissure repair, bilater al knee arthroscopies, THYROID SURGERY-1/2 removed. MEDICATIONS: See below ALLERGIES: See below SOCIAL HISTORY: No illicit drug use. REVIEW OF SYSTEMS: CONSTITUTIONAL: Denies fever or chills. HEENT: Denies blurred vision, vision changes, or eye pain. Denies hemoptysis CARDIOVASCULAR: Denies chest pain or pressure. RESPIRATORY: No shortness of breath. GASTROINTESTINAL: See HPI for pertinent findings HEMATOLOGIC: Denies bleeding disorders. GENITOURINARY: Denies any blood in urine or increased urinary frequency. SKIN: Denies pruitis. Denies rash. PHYSICAL EXAM: VITAL SIGNS: Reviewed GENERAL: Well-developed in no acute distress. HEENT: No sclera icterus. Extraocular movements grossly intact. Moist buccal mucosa. Head is atraumatic, normocephalic. No nasal drainage. ABDOMEN: Soft. Nondistended. PEG tube insertion site noted. No drainage NEUROLOGIC: Alert and oriented. Cranial nerves II through XII grossly intact. LABORATORY DATA: WBC 5.4 Hgb 13.1 platelets 149 Sodium 126 potassium 3.5 creatinine 0.61 IMAGING: ASSESSMENT: 1. Malfunctioning PEG tube. PEG tube had been pulled out PLAN: -Patient reports having difficulties with prior EGDs due to his history of lymphoma in his neck. Dr. Devine evaluated patient at bedside. Dr. Devine placed a 14 [place] Velasquez catheter into the old peg tube site to use as a peg tube. -Consult dietitian for tube feedings -Patient to follow-up with Dr. Devine in 3 weeks outpatient to have new PEG tube Placement Physician Hat Forming Machine Feeder note has been reviewed by physician. Signing provider agrees with the documented findings, assessment, and plan of care. Past Medical History Past Medical History: Atrial Fibrillation, Cancer, COPD, Neurologic Disorder, O steoarthritis (OA), Pneumonia, Prostate Disorder, Thyroid Disorder Additional Past Medical History / Comment(s): Pt recently admitted to [facility] on 02/17/17 with L lower lobe pneumonia, small B cell lymphoma. Other Hx: Atrial flutter with RVR, Chronic lymphocytic leukemia-has lesions on base of tongue, vocal cords and lymph nodes in L side neck, has had 2 doses chemo therapy [address] [facility] and is due for more chemo ThursdayMarch 10, hypogammaglobulinemia-has received IV IGg, anemia, dysphagia-NPO with peg tube-can have rare piece of ice, chronic bronchitis, pneumonia with sepsis, paroxysmal atrial fibrillation, hypothyroidism-surgery d/t nodules, viral skin rash- chickenpox rash, Fletcher's palsy L face, bilateral tinnitis. History of Any Multi-Drug Resistant Organisms: MRSA Year Discovered:: 02/17/17 MDRO Source:: Sputum Past Surgical History: Tonsillectomy Additional Past Surgical History / Comment(s): Peg tube insertion, colonoscopies/polypectomies, rectal fissure repair, bilateral knee arthroscopies, THYROID SURGERY-1/2 removed. Past Anesthesia/Blood Transfusion Reactions: Blood Transfusion Reaction Additional Past Anesthesia/Blood Transfusion Reaction / Comm: GAVE BENADRYL AND RAN SLOW. Has had multiple transfusuions and has a reaction every time Past Psychological History: No Psychological Hx Reported - Past Family History Father Family Medical History: Dementia Mother Family Medical History: No Reported History Medications and Allergies Home Medications Medication Instructions Recorded Confirmed Type Multivitamins, Thera [Multivitamin 1 tab PEG/G-TUBE DAILY 12/21/16 08/31/23 History (formulary)] Imbruvica 420 mg PEG/G-TUBE DAILY 04/06/17 08/31/23 History Apixaban [Eliquis] 2.5 mg PEG/G-TUBE BID 08/31/23 08/31/23 History Flecainide [Tambocor] 50 mg PEG/G-TUBE Q12HR 08/31/23 08/31/23 History busPIRone HCl [Buspar] 5 mg PEG/G-TUBE TID PRN 08/31/23 08/31/23 History Allergies Allergy/AdvReac Type Severity Reaction Status Date / Time amoxicillin Allergy Rash/Hives Verified 08/31/23 10:58 clavulanic acid Allergy Rash/Hives Verified 08/31/23 10:58 [From Augmentin] rituximab [From Rituxan] Allergy Anaphylaxis Verified 08/31/23 10:58 Surgical - Exam Vital Signs Temp Pulse Resp BP Pulse Ox 98.5 F 95 20 95/57 94 L 08/30/23 14:51 08/30/23 14:51 08/30/23 14:51 08/30/23 14:51 08/30/23 14:51 Results - Labs 09/01/23 08:56 09/01/23 08:56 Abnormal Lab Results - Last 24 Hours (Table) 08/31/23 08/31/23 09/01/23 Range/Units 09:52 09:52 08:56 Plt Count 122 L 149 L (150-450) k/uL Sodium 127 L (137-145) mmol/L Chloride 97 L (98-107) mmol/L Carbon Dioxide (22-30) mmol/L Creatinine 0.60 L (0.66-1.25) mg/dL Glucose 71 L (74-99) mg/dL Calcium 7.7 L (8.4-10.2) mg/dL 09/01/23 Range/Units 08:56 Plt Count (150-450) k/uL Sodium 126 L (137-145) mmol/L Chloride (98-107) mmol/L Carbon Dioxide 20 L (22-30) mmol/L Creatinine 0.61 L (0.66-1.25) mg/dL Glucose (74-99) mg/dL Calcium 7.5 L (8.4-10.2) mg/dL Diabetes panel 08/31/23 09/01/23 Range/Units 09:52 08:56 Sodium 127 L 126 L (137-145) mmol/L Potassium 4.2 3.5 (3.5-5.1) mmol/L Chloride 97 L 99 (98-107) mmol/L Carbon Dioxide 23 20 L (22-30) mmol/L BUN 16 15 (9-20) mg/dL Creatinine 0.60 L 0.61 L (0.66-1.25) mg/dL Glucose 71 L 82 (74-99) mg/dL Calcium 7.7 L 7.5 L (8.4-10.2) mg/dL Thyroid panel 08/31/23 Range/Units 09:52 TSH 3.540 (0.465-4.680) mIU/L Calcium panel 08/31/23 09/01/23 Range/Units 09:52 08:56 Calcium 7.7 L 7.5 L (8.4-10.2) mg/dL Pituitary panel 08/31/23 09/01/23 Range/Units 09:52 08:56 Sodium 127 L 126 L (137-145) mmol/L Potassium 4.2 3.5 (3.5-5.1) mmol/L Chloride 97 L 99 (98-107) mmol/L Carbon Dioxide 23 20 L (22-30) mmol/L BUN 16 15 (9-20) mg/dL Creatinine 0.60 L 0.61 L (0.66-1.25) mg/dL Glucose 71 L 82 (74-99) mg/dL Calcium 7.7 L 7.5 L (8.4-10.2) mg/dL TSH 3.540 (0.465-4.680) mIU/L Adrenal panel 08/31/23 09/01/23 Range/Units 09:52 08:56 Sodium 127 L 126 L (137-145) mmol/L Potassium 4.2 3.5 (3.5-5.1) mmol/L Chloride 97 L 99 (98-107) mmol/L Carbon Dioxide 23 20 L (22-30) mmol/L BUN 16 15 (9-20) mg/dL Creatinine 0.60 L 0.61 L (0.66-1.25) mg/dL Glucose 71 L 82 (74-99) mg/dL Calcium 7.7 L 7.5 L (8.4-10.2) mg/dL
--- NOTE | 2023-09-01 17:56 | CDI ---
Documentation Clarification Form Date: From: La Reynolds Phone: [phone] Admit Date: 08/30/2023 08:40:00 PM Patient Name: Heri Lopez Visit Number: [id number] Discharge Date: ATTENTION: The Clinical Documentation Specialists (CDI) and [facility] Coding Staff appreciate your assistance in clarifying documentation. Please respond to the clarification below the line at the bottom and electronically sign. The CDI & [facility] Coding staff will review the response and follow-up if needed. Please note: Queries are made part of the Legal Health Record. If you have any questions, please contact the author of this message via ITS. Dr. Duarte De Souza The patient has a temperature of 101.0 and a heart rate of 114 documented in the flowsheet. Based on this information and the findings below, is there an additional diagnosis that is clinically appropriate for this patient? History/Risk Factors: "82-year-old gentleman with past medical history significant for chronic lymphocytic leukemia, history of Fletcher's palsy, history of paroxysmal atrial fibrillation, history of dysphagia with feeding tube in place, hypothyroidism, presents to the emergency department with complaints of fever, shortness of breath." - Per H&P on 08/30 Clinical Indicators: "Patient tested positive for influenza A" "Fever, cough, shortness of breath" "Multifocal pneumonia superimposed bacterial pneumonia with influenza A" "Paroxysmal atrial fibrillation with rapid ventricular response" - Per H&P on 08/30 "chest x-ray does show multifocal airspace opacity" - Per H&P on 08/30 WBC: 08/29 - 10.9, 08/30 - 7.4, 08/31 - 5.4 Lactic acid: 08/29 - 1.1 Blood cultures: none noted in results Vitals signs: 08/29 19:40 - Temp. 101.0, HR 114, RR 16, BP 122/80, O2 96% Treatment: Per H&P on 08/30 "Continue patient on Levaquin to complete 5-day course" "started on Tamiflu to complete 5-day course" Is there an additional diagnosis that is clinically appropriate for this patient? [ y ] Sepsis, present on admission [ ] Sepsis, developed during stay, not present on admission [ ] No additional diagnosis/not clinically significant [ ] Other, please specify [ ] Unable to determine SIRS Criteria: 2 or more of the following may indicate SIRS Temperature < 96.8F (36C) or > 101.0F (38.3C) Heart Rate > 90 bpm Respiratory Rate > 20 breaths/min or PaCO2 < 32 mmHg White Blood Cell Count > 12,000 or < 4,000 cells/mm3 or > 10% bands MTDD
--- NOTE | 2023-09-02 06:35 | PN ---
PROGRESS NOTE Mr. Lopez is a patient who has a PEG tube laryngeal cancer, also has CLL. He is in atrial fibrillation, rate is fast. Apparently, the PEG tube came out, cannot be used. A surgery consult with Dr. Devine has been requested. I am suggesting that we place him on Cardizem 7.5 mg bolus and drip to control the rate. No other suggestions. Vitals are stable. S1-S2 heard normally. Tachycardia, irregular rhythm noted. Lungs reveal diminished air entry. Abdomen and lower extremity exam was unchanged. Prognosis remains guarded. MMODL / IJN: [id number] /
[2023-09-02 10:18] LABS: HCT 39.3 % (39.0-53.0); HGB 12.1 gm/dL (13.0-17.5); MCH 26.8 pg (25.0-35.0); MCHC 30.8 g/dL (31.0-37.0); Mean Platelet Volume 9.4; Platelet Count 143 k/uL (150-450); RBC 4.51 m/uL (4.30-5.90); RDW 14.1 % (11.5-15.5); WBC 4.2 k/uL (3.8-10.6)
[2023-09-02 10:36] LABS: African American GFR (CKD) >90 (>60 ml/min/1.73 sqM); Anion Gap 6 mmol/L; Blood Urea Nitrogen 13 mg/dL (9-20); Calcium 7.4 mg/dL (8.4-10.2); Carbon Dioxide 20 mmol/L (22-30); Chloride 102 mmol/L (98-107); Glucose 67 mg/dL (74-99); Magnesium 1.9 mg/dL (1.6-2.3); Non-African American GFR(CKD) >90 (>60 ml/min/1.73 sqM); Potassium 3.9 mmol/L (3.5-5.1); Sodium 128 mmol/L (137-145)
--- NOTE | 2023-09-02 12:06 | P.PN ---
Subjective Progress Note Date: 09/02/23 * 82-year-old gentleman with past medical history significant for chronic lymphocytic leukemia, history of Fletcher's palsy, history of paroxysmal atrial fibrillation, history of dysphagia with feeding tube in place, hypothyroidism, presents to the emergency department with complaints of fever, shortness of br eath. Patient was brought in by family for noted to have G-tube falling out. Patient has been nonproductive cough, feeling weak and shortness of breath going on for the last 48 hours. Patient does have a PEG tube which has been in for approximately a year and a half and was pulled about 2 hours prior to presentation. * Workup initiated in ER included CBC which showed WBC of 10.9 hemoglobin 14.2 platelet count of 127, serum chemistry obtained showed sodium 123 potassium 4.2 chloride 91 BUN 21 creatinine 0.8 calcium 7.7, * Patient tested positive for influenza A, negative for RSV and coronavirus * While in ER patient was given 1 L of fluid bolus, patient PEG tube was placed by ED team and will be admitted for management of influenza and A-fib RVR and multifocal pneumonia * 09/01/23: Patient seen and evaluated in the emergency room, overnight patient PEG tube dislodged, general surgery consulted, care plan discussed with son and at bedside they were frustrated regarding care plan. They were explained that we will call surgery to assist with PEG tube placement. Patient medications to be resumed. concert or lecture hall manager was called as well to be part of conversation. Multiple questions were answered during the conversation family was explained that patient continues to remain ill from underlying comorbidities including influenza, and he would need to be in the hospital for another at least 48 hours. IV access was obtained as well. Cardiology has been on consult as well, oncology has been consulted. Nutrition is on consult will continue to follow-up on blood work * 09/02/23 : Patient seen and evaluated bedside, patient transferred from emergency room to room 376, patient remains on 2 L of oxygen, patient states breathing is better, interventional radiology consulted, cannot do PEG tube at [facility]. Will get second opinion from surgery per family request if unable to do PEG tube will need to be transferred to tertiary [facility] REVIEW OF SYSTEMS: Fever, cough, shortness of breath IMPROVED CONSTITUTIONAL: No fever, no malaise, no fatigue. HEENT: No recent visual problems or hearing problems. Denied any sore throat. CARDIOVASCULAR: No chest pain, orthopnea, PND, no palpitations, no syncope. PULMONARY: Fever, cough, shortness of breath GASTROINTESTINAL: No diarrhea, no nausea, no vomiting, no abdominal pain. NEUROLOGICAL: No headaches, no weakness, no numbness. HEMATOLOGICAL: Denies any bleeding or petechiae. GENITOURINARY: Denies any burning micturition, frequency, or urgency. MUSCULOSKELETAL/RHEUMATOLOGICAL: Denies any joint pain, swelling, or any muscle pain. ENDOCRINE: Denies any polyuria or polydipsia. PHYSICAL EXAMINATION: GENERAL: The patient is alert and oriented x 3, HEENT: Pupils are round and equally reacting to light. EOMI. CARDIOVASCULAR: S1 and S2 present. Rate normal PULMONARY: Improved air entry bilateral ABDOMEN: Soft, nontender, nondistended, normoactive bowel sounds. PEG tube dislodged overnight 08/31, replaced with Velasquez MUSCULOSKELETAL: No joint swelling or deformity. EXTREMITIES: No cyanosis, clubbing, or pedal edema. NEUROLOGICAL: Gross neurological examination did not reveal any focal deficits. SKIN: No rashes. Assessment and plan * Multifocal pneumonia superimposed bacterial pneumonia with influenza A * Influenza A pneumonia * Paroxysmal atrial fibrillation with rapid ventricular response * PEG tube malfunction * Acute hyponatremia * Moderate protein calorie malnutrition * Hypothyroid * History of CLL * In regards to multifocal pneumonia chest x-ray does show multifocal airspace opacity, elevated WBC count. Continue patient on Levaquin to complete 5-day course, day 3 of 5 * In regards to influenza A, started on Tamiflu to complete 5-day course, * Regards to paroxysmal atrial fibrillation continue cardiac monitoring, continue metoprolol, continue flecainide * In regards to protein calorie malnutrition, nutrition consulted , tube feeding on hold, if no plan for PEG tube placement will start patient on enteral nutrition through Velasquez with plan to transfer to tertiary center for PEG tube placement * In regards to history of CLL patient seen by oncology Imbruvica on hold while acute illness a ongoing Objective - Vital Signs Vital signs: Vital Signs Temp 98.1 F 09/02/23 08:47 Pulse 67 09/02/23 08:47 Resp 18 09/02/23 08:47 BP 133/58 09/02/23 08:47 Pulse Ox 95 09/02/23 08:47 FiO2 Intake & Output 09/01/23 09/02/23 09/02/23 18:59 06:59 18:59 Output Total 850 Balance -850 Weight 68.039 kg Output: Urine 850 Other: Voiding Method Urinal Urinal - Labs CBC & Chem 7: 09/02/23 09:17 09/02/23 09:17 Labs: Abnormal Lab Results - Last 24 Hours (Table) 09/01/23 09/01/23 Range/Units 08:56 08:56 Plt Count 149 L (150-450) k/uL Sodium 126 L (137-145) mmol/L Carbon Dioxide 20 L (22-30) mmol/L Creatinine 0.61 L (0.66-1.25) mg/dL Calcium 7.5 L (8.4-10.2) mg/dL
[2023-09-02] MEDS: MAGNESIUM SULFATE-D5W PMX 1 GM in DEXTROSE/WATER 1 100ML.BAG IVPB SCH (13:41)
--- NOTE | 2023-09-02 13:55 | P.PN ---
Subjective Progress Note Date: 09/02/23 History of present illness: This is an 82-year-old male status post PEG tube secondary to laryngeal cancer and CLL, patient presented with A-fib with RVR. He has had PEG tube come out and has been replaced most recently yesterday by Dr. Devine. Patient was resumed on his home cardiac medications and heart rate was controlled. This morning patient is found to be in sinus rhythm. Physical examination: Gen: This is a frail-appearing 82-year-old male in no acute distress VS: reviewed HEENT: Head is atraumatic, normocephalic. Pupils equal, round. Sclerae is anicteric. LUNGS: Diminished air entry. No intercostal retractions. HEART: Regular rate and rhythm. Short systolic murmur. EXTREMITIES: No pedal edema. No calf tenderness. NEUROLOGICAL: Patient is awake, alert. Assessment: Persistent atrial fibrillation, converted to sinus rhythm Chronic lymphocytic leukemia History of laryngeal carcinoma History of Fletcher's palsy Plan: Continue patient on Eliquis 2.5 mg twice daily, flecainide 50 mg every 12 hours, Lopressor 25 mg 3 times daily No further cardiac workup at this time. Patient is cleared for discharge from cardiology. Cardiology will sign off this case and follow on an as-needed basis. Please reconsult for any new concerns. Nurse practitioner note has been reviewed, I agree with documented findings and plan of care. Patient was seen and examined. Objective - Vital Signs Vital signs: Vital Signs Temp 98.1 F 09/02/23 08:47 Pulse 67 09/02/23 08:47 Resp 18 09/02/23 08:47 BP 133/58 09/02/23 08:47 Pulse Ox 95 09/02/23 08:47 FiO2 Intake & Output 09/01/23 09/02/23 09/02/23 18:59 06:59 18:59 Output Total 850 Balance -850 Weight 68.039 kg Output: Urine 850 Other: Voiding Method Urinal Urinal - Labs CBC & Chem 7: 09/02/23 09:17 09/02/23 09:17 Labs: Abnormal Lab Results - Last 24 Hours (Table) 09/01/23 Range/Units 08:56 Sodium 126 L (137-145) mmol/L Carbon Dioxide 20 L (22-30) mmol/L Creatinine 0.61 L (0.66-1.25) mg/dL Calcium 7.5 L (8.4-10.2) mg/dL
--- NOTE | 2023-09-02 15:54 | P.PN ---
Subjective Progress Note Date: 09/02/23 CHIEF COMPLAINT: Malfunctioning PEG tube HISTORY OF PRESENT ILLNESS: Patient had a 14 [place] Velasquez catheter placed yesterday in peg tube site to keep track open. Patient was told that they could use the Velasquez as a peg tube. However, family and patient were adamant that they wanted a new PEG tube. Due to patient's lymphoma he reports that he cannot have an EGD done. Patient seen by interventional radiology they are unable to place PEG tube at this facility. Afebrile. WBC 4.2 Hgb 12.1 platelets 143 sodium is 128 potassium 3.9 creatinine 0.55 PHYSICAL EXAM: VITAL SIGNS: Reviewed. GENERAL: Well-developed in no acute distress. ABDOMEN: Soft. Nondistended. PEG tube site clean dry and intact with Velasquez catheter in place NEUROLOGIC: Alert and oriented. Cranial nerves II through XII grossly intact. ASSESSMENT: 1. Malfunctioning PEG tube PLAN: -Patient seen and examined by Dr. Devine at bedside. Dr. Devine removed the Velasquez catheter that was in the PEG tube track. He placed a new peg tube at bedside. -Patient can start tube feeds through the PEG tube -Patient is stable from surgical standpoint for discharge Physician Maintenance Tech note has been reviewed by physician. Signing provider agrees with the documented findings, assessment, and plan of care. Objective - Vital Signs Vital signs: Vital Signs Temp 97.5 F L 09/02/23 11:45 Pulse 75 09/02/23 14:00 Resp 18 09/02/23 14:00 BP 100/55 09/02/23 11:45 Pulse Ox 93 L 09/02/23 11:45 FiO2 Intake & Output 09/01/23 09/02/23 09/02/23 18:59 06:59 18:59 Output Total 850 Balance -850 Weight 68.039 kg Output: Urine 850 Other: Voiding Method Urinal Urinal Urinal - Labs CBC & Chem 7: 09/02/23 09:17 09/02/23 09:17 Labs: Abnormal Lab Results - Last 24 Hours (Table) 09/02/23 09/02/23 Range/Units 09:17 09:17 Hgb 12.1 L (13.0-17.5) gm/dL MCHC 30.8 L (31.0-37.0) g/dL Plt Count 143 L (150-450) k/uL Sodium 128 L (137-145) mmol/L Carbon Dioxide 20 L (22-30) mmol/L Creatinine 0.55 L (0.66-1.25) mg/dL Glucose 67 L (74-99) mg/dL Calcium 7.4 L (8.4-10.2) mg/dL
[2023-09-03 04:29] VITALS: RESP 15
[2023-09-03] MEDS ORDERED: MAGNESIUM SULFATE-D5W PMX 1 GM in DEXTROSE/WATER 1 100ML.BAG IVPB SCH (08:45)
[2023-09-03 09:19] VITALS: BP 108/68; TEMP 97.9
[2023-09-03 10:23] LABS: HCT 39.7 % (39.0-53.0); HGB 12.3 gm/dL (13.0-17.5); MCH 27.5 pg (25.0-35.0); MCV 88.5 fL (80.0-100.0); Mean Platelet Volume 9.3; Platelet Count 176 k/uL (150-450); RBC 4.48 m/uL (4.30-5.90); RDW 13.9 % (11.5-15.5)
[2023-09-03 10:38] LABS: African American GFR (CKD) >90 (>60 ml/min/1.73 sqM); Anion Gap 4 mmol/L; Blood Urea Nitrogen 9 mg/dL (9-20); Calcium 7.5 mg/dL (8.4-10.2); Carbon Dioxide 22 mmol/L (22-30); Chloride 103 mmol/L (98-107); Glucose 80 mg/dL (74-99); Non-African American GFR(CKD) >90 (>60 ml/min/1.73 sqM); Potassium 3.8 mmol/L (3.5-5.1); Sodium 129 mmol/L (137-145)
--- NOTE | 2023-09-03 11:59 | P.DS ---
Providers Date of admission: 08/30/23 20:40 Expected date of discharge: 09/03/23 Attending physician: Champ Limon MD Consults: 08/30/23 20:40 Consult Physician Routine Consulting Provider: Sina Stevens Consult Reason/Comments: Atrial fibrillation Do you want consulting provider notified?: Yes 08/31/23 10:56 Consult Physician Stat Consulting Provider: Valdez Rucker Consult Reason/Comments: hx of leukemia Do you want consulting provider notified?: Yes 08/31/23 23:11 Consult Physician Stat Consulting Provider: Tariq Devine Consult Reason/Comments: PEG Tube pulled out Do you want consulting provider notified?: Yes Primary care physician: Reid [facility] Hospital Course: * 82-year-old gentleman with past medical history significant for chronic lymphocytic leukemia, history of Fletcher's palsy, history of paroxysmal atrial fibrillation, history of dysphagia with feeding tube in place, hypothyroidism, presents to the emergency department with complaints of fever, shortness of breath. Patient was brought in by family for noted to have G-tube falling out. Patient has been nonproductive cough, feeling weak and shortness of breath going on for the last 48 hours. Patient does have a PEG tube which has been in for approximately a year and a half and was pulled about 2 hours prior to presentation. * Workup initiated in ER included CBC which showed WBC of 10.9 hemoglobin 14.2 platelet count of 127, serum chemistry obtained showed sodium 123 potassium 4.2 chloride 91 BUN 21 creatinine 0.8 calcium 7.7, * Patient tested positive for influenza A, negative for RSV and coronavirus * While in ER patient was given 1 L of fluid bolus, patient PEG tube was placed by ED team and will be admitted for management of influenza and A-fib RVR and multifocal pneumonia * 09/01/23: Patient seen and evaluated in the emergency room, overnight patient PEG tube dislodged, general surgery consulted, care plan discussed with son and at bedside they were frustrated regarding care plan. They were explained that we will call surgery to assist with PEG tube placement. Patient medications to be resumed. regional education manager was called as well to be part of conversation. Multiple questions were answered during the conversation family was explained that patient continues to remain ill from underlying comorbidities including influenza, and he would need to be in the hospital for another at least 48 hours. IV access was obtained as well. Cardiology has been on consult as well, oncology has been consulted. Nutrition is on consult will continue to follow-up on blood work * 09/02/23 : Patient seen and evaluated bedside, patient transferred from emergency room to room 376, patient remains on 2 L of oxygen, patient states breathing is better, interventional radiology consulted, cannot do PEG tube at [facility]. Will get second opinion from surgery per family request if unable to do PEG tube will need to be transferred to tertiary [facility] * 09/03/23: Patient seen and evaluated bedside, at bedside as well, patient weaned down to room air, patient to be discharged home PEG tube in place, heart rate controlled prescription for metoprolol provided prescription for Tamiflu and levothyroxine provided REVIEW OF SYSTEMS: Fever, cough, shortness of breath IMPROVED CONSTITUTIONAL: No fever, no malaise, no fatigue. HEENT: No recent visual problems or hearing problems. Denied any sore throat. CARDIOVASCULAR: No chest pain, orthopnea, PND, no palpitations, no syncope. PULMONARY: Fever, cough, shortness of breath GASTROINTESTINAL: No diarrhea, no nausea, no vomiting, no abdominal pain. NEUROLOGICAL: No headaches, no weakness, no numbness. HEMATOLOGICAL: Denies any bleeding or petechiae. GENITOURINARY: Denies any burning micturition, frequency, or urgency. MUSCULOSKELETAL/RHEUMATOLOGICAL: Denies any joint pain, swelling, or any muscle pain. ENDOCRINE: Denies any polyuria or polydipsia. PHYSICAL EXAMINATION: GENERAL: The patient is alert and oriented x 3, HEENT: Pupils are round and equally reacting to light. EOMI. CARDIOVASCULAR: S1 and S2 present. Rate normal PULMONARY: Improved air entry bilateral ABDOMEN: Soft, nontender, nondistended, normoactive bowel sounds. PEG tube dislodged overnight 08/31, replaced with Velasquez, PEG tube replaced on 09/01 MUSCULOSKELETAL: No joint swelling or deformity. EXTREMITIES: No cyanosis, clubbing, or pedal edema. NEUROLOGICAL: Gross neurological examination did not reveal any focal deficits. SKIN: No rashes. Assessment and plan * Multifocal pneumonia superimposed bacterial pneumonia with influenza A * Influenza A pneumonia * Paroxysmal atrial fibrillation with rapid ventricular response * PEG tube malfunction * Acute hyponatremia * Moderate protein calorie malnutrition * Hypothyroid * History of CLL * In regards to multifocal pneumonia chest x-ray does show multifocal airspace opacity, elevated WBC count. Continue patient on Levaquin to complete 5-day course, day 3 of 5, prescription provided * In regards to influenza A, started on Tamiflu to complete 5-day course, prescription provided * Regards to paroxysmal atrial fibrillation continue cardiac monitoring, continue metoprolol, continue flecainide, prescription for metoprolol provided * In regards to protein calorie malnutrition, nutrition consulted , PEG tube replaced * In regards to history of CLL patient seen by oncology Darrick on hold while acute illness a ongoing Patient Condition at Discharge: Fair Plan - Discharge Summary Discharge Rx Participant: No New Discharge Prescriptions: New guaiFENesin [Mucinex] 600 mg PO Q12H 5 Days #10 tab Oseltamivir 6Mg/ml Oral Susp [Tamiflu] 75 mg PEG/G-TUBE Q12HR 2 Days #50 ml Levofloxacin Oral Soln [Levaquin Oral Soln] 750 mg PEG/G-TUBE DAILY #60 ml Metoprolol Tartrate [Lopressor] 25 mg PEG/G-TUBE TID 30 Days #90 tab Levothyroxine Sodium [Synthroid] 125 mcg PEG/G-TUBE DAILY 30 Days #30 tab Continue Multivitamins, Thera [Multivitamin (formulary)] 1 tab PEG/G-TUBE DAILY Imbruvica 420 mg PEG/G-TUBE DAILY busPIRone HCl [Buspar] 5 mg PEG/G-TUBE TID PRN PRN Reason: Anxiety Flecainide [Tambocor] 50 mg PEG/G-TUBE Q12HR Apixaban [Eliquis] 2.5 mg PEG/G-TUBE BID Discharge Medication List Multivitamins, Thera [Multivitamin (formulary)] 1 tab PEG/G-TUBE DAILY 12/21/16 [History] Imbruvica 420 mg PEG/G-TUBE DAILY 04/06/17 [History] Apixaban [Eliquis] 2.5 mg PEG/G-TUBE BID 08/31/23 [History] Flecainide [Tambocor] 50 mg PEG/G-TUBE Q12HR 08/31/23 [History] busPIRone HCl [Buspar] 5 mg PEG/G-TUBE TID PRN 08/31/23 [History] Levofloxacin Oral Soln [Levaquin Oral Soln] 750 mg PEG/G-TUBE DAILY #60 ml 09/03/23 [Rx] Levothyroxine Sodium [Synthroid] 125 mcg PEG/G-TUBE DAILY 30 Days #30 tab 09/03/23 [Rx] Metoprolol Tartrate [Lopressor] 25 mg PEG/G-TUBE TID 30 Days #90 tab 09/03/23 [Rx] Oseltamivir 6Mg/ml Oral Susp [Tamiflu] 75 mg PEG/G-TUBE Q12HR 2 Days #50 ml 09/03/23 [Rx] guaiFENesin [Mucinex] 600 mg PO Q12H 5 Days #10 tab 09/03/23 [Rx] Follow up Appointment(s)/Referral(s): None,Stated [REFERRING] - 1-2 days [facility] [NON-STAFF] - Valdez Rucker MD [STAFF PHYSICIAN] - 11/06/23 8:45 am Tariq Devine MD [STAFF PHYSICIAN] - 1 Week Discharge Disposition: HOME WITH HOME HEALTH SERVICES
--- NOTE | 2023-09-03 12:36 | P.PN ---
Progress Note - Text Progress Note Date: 09/03/23 Patient [place] stable. The replacement LAUREN gastrostomy tube was placed yesterday. The patient is able to resume tube feeds. Patient is stable from a surgical standpoint. We will sign off.
[2023-09-03 13:37] VITALS: PULSE 73
== END 2023-09-03 14:03 | disposition home health service (06) | DRG 871 ==
LOC: EC 14:14 → SUPCPDRO 14:14 → 3SCARD 20:40
PROVIDERS: ADMIT Internal Medicine; ATTEND Internal Medicine
PROC: 0D20XUZ Change Feeding Device in Upper Intestinal Tract, External Approach (ICD-10-PCS; principal; 2023-08-30)
PROC: 3E0G76Z Introduction of Nutritional Substance into Upper GI, Via Natural or Artificial Opening (ICD-10-PCS; 2023-08-30)
DX: A41.89 Other specified sepsis (principal); J10.08 Influenza due to other identified influenza virus with other specified pneumonia; J15.9 Unspecified bacterial pneumonia; C91.10 Chronic lymphocytic leukemia of B-cell type not having achieved remission; K94.23 Gastrostomy malfunction; E44.0 Moderate protein-calorie malnutrition; E87.1 Hypo-osmolality and hyponatremia; J44.0 Chronic obstructive pulmonary disease with (acute) lower respiratory infection; C85.91 Non-Hodgkin lymphoma, unspecified, lymph nodes of head, face, and neck; I48.19 Other persistent atrial fibrillation; I48.92 Unspecified atrial flutter; Z68.1 Body mass index [BMI] 19.9 or less, adult; D80.1 Nonfamilial hypogammaglobulinemia; C32.9 Malignant neoplasm of larynx, unspecified; E03.9 Hypothyroidism, unspecified; Z79.01 Long term (current) use of anticoagulants; Z68.21 Body mass index [BMI] 21.0-21.9, adult; G51.0 Bell's palsy; M19.90 Unspecified osteoarthritis, unspecified site; Z87.01 Personal history of pneumonia (recurrent); Z79.890 Hormone replacement therapy; Z79.899 Other long term (current) drug therapy; Z85.21 Personal history of malignant neoplasm of larynx; Z88.1 Allergy status to other antibiotic agents; Z88.8 Allergy status to other drugs, medicaments and biological substances; Z96.653 Presence of artificial knee joint, bilateral
CPT/HCPCS: 36415; 51798; 71046; 80048; 80053; 81001; 83605; 83735; 84443; 85025; 85027; 87449; 87636; 93005; 94640

== ENCOUNTER 2024-06-21 22:38 | Inpatient (IN) | payer MEDICARE ==
--- NOTE | 2024-06-21 23:00 | ED ---
Abdominal Pain HPI - General Chief Complaint: Abdominal Pain Stated Complaint: Constipation, vomiting, abd and back pain Time Seen by Provider: 06/21/24 22:48 Source: patient, RN notes reviewed Mode of arrival: ambulatory Limitations: no limitations - History of Present Illness Initial Comments: This is an 83-year-old male who presents to the emergency department for abdominal pain. Patient states that he has not had a bowel movement in 2 days and is starting to develop severe pain in the mid to lower abdomen. He has tried laxatives and suppositories without any relief. He is still passing gas. He tried to drink a beverage this morning to help with the constipation, however he proceeded to throw it back up. Denies any history of bowel obstructions. States that the pain is starting to radiate into his back. MD Complaint: abdominal pain - Related Data Home Medications Medication Instructions Recorded Confirmed Multivitamins, Thera [Multivitamin 1 tab PEG/G-TUBE DAILY 12/21/16 08/31/23 (formulary)] Imbruvica 420 mg PEG/G-TUBE DAILY 04/06/17 08/31/23 Apixaban [Eliquis] 2.5 mg PEG/G-TUBE BID 08/31/23 08/31/23 Flecainide [Tambocor] 50 mg PEG/G-TUBE Q12HR 08/31/23 08/31/23 busPIRone HCl [Buspar] 5 mg PEG/G-TUBE TID PRN 08/31/23 08/31/23 Previous Rx's Medication Instructions Recorded Levofloxacin Oral Soln [Levaquin 750 mg PEG/G-TUBE DAILY #60 ml 09/03/23 Oral Soln] Levothyroxine Sodium [Synthroid] 125 mcg PEG/G-TUBE DAILY 30 Days 09/03/23 #30 tab Metoprolol Tartrate [Lopressor] 25 mg PEG/G-TUBE TID 30 Days #90 09/03/23 tab Oseltamivir 6Mg/ml Oral Susp 75 mg PEG/G-TUBE Q12HR 2 Days #50 09/03/23 [Tamiflu] ml guaiFENesin [Mucinex] 600 mg PO Q12H 5 Days #10 tab 09/03/23 Allergies Allergy/AdvReac Type Severity Reaction Status Date / Time amoxicillin Allergy Rash/Hives Verified 06/21/24 22:45 clavulanic acid Allergy Rash/Hives Verified 06/21/24 22:45 [From Augmentin] rituximab [From Rituxan] Allergy Anaphylaxis Verified 06/21/24 22:45 Review of Systems ROS Statement: Those systems with pertinent positive or pertinent negative responses have been documented in the HPI. ROS Other: All systems not noted in ROS Statement are negative. Past Medical History Past Medical History: Atrial Fibrillation, Cancer, COPD, Neurologic Disorder, Osteoarthritis (OA), Pneumonia, Prostate Disorder, Thyroid Disorder Additional Past Medical History / Comment(s): Pt recently admitted to [facility] on 02/17/17 with L lower lobe pneumonia, small B cell lymphoma. 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 Past Anesthesia/Blood Transfusion Reactions: Blood Transfusion Reaction Additional Past Anesthesia/Blood Transfusion Reaction / Comment(s): GAVE BENADRYL AND RAN SLOW. Has had multiple transfusuions and has a reaction every time Past Psychological History: No Psychological Hx Reported Smoking Status: Unknown if ever smoked Past Alcohol Use History: Unable to Obtain Past Drug Use History: None Reported - Past Family History Father Family Medical History: Dementia Mother Family Medical History: No Reported History General Exam Limitations: no limitations General appearance: alert, in distress Head exam: Present: atraumatic, normocephalic, normal inspection Respiratory exam: Present: normal lung sounds bilaterally. Absent: respiratory distress, wheezes, rales, rhonchi, stridor Cardiovascular Exam: Present: regular rate, normal rhythm, normal heart sounds. Absent: systolic murmur, diastolic murmur, rubs, gallop, clicks GI/Abdominal exam: Present: soft, tenderness (diffuse). Absent: distended Neurological exam: Present: alert, oriented X3, CN II-XII intact Psychiatric exam: Present: normal affect, normal mood Skin exam: Present: warm, dry, intact, normal color. Absent: rash Course Vital Signs 06/21/24 06/22/24 06/22/24 22:40 00:45 01:00 Temperature 97.7 F Pulse Rate 53 L 84 85 Respiratory 17 18 18 Rate Blood Pressure 102/65 124/84 119/82 O2 Sat by Pulse 93 L 94 L 96 Oximetry Medical Decision Making - Medical Decision Making This is an 83-year-old male who presents to the emergency department for abdominal pain. Was pt. sent in by a medical professional or institution? @ -No Did you speak to anyone other than the patient for history? @ -No Did you review nursing and triage notes? @ -Yes, and I agree, it is accurate with regards to the patient's symptoms. Were old charts reviewed? @ -No Differential Diagnosis? @ -Differential Abdominal Pain Men: Appendicitis, cholecystitis, diverticulosis, ischemic bowel, pancreatitis, hepatitis, UTI, gastroenteritis, AAA, incarcerated hernia, bowel obstruction, constipation, inflammatory bowel, hepatitis, peptic ulcer disease, splenic infarction, perforated viscus, testicular torsion, this is not meant to be an all-inclusive list EKG interpreted by me (3pts min.)? @ -EKG interpreted by me demonstrating the following: Sinus rhythm. Ventricular rate 80 bpm, IL interval 152 ms, QRS duration 94 ms, QTc 229 ms. X-rays interpreted by me (1pt min.)? @ -Not obtained CT interpreted by me (1pt min.)? @ -CT scan of the abdomen and pelvis obtained. My interpretation identifies distention of the colon. U/S interpreted by me (1pt. min.)? @ -Not obtained What testing was considered but not performed? (CT, X-rays, U/S, labs)? Why? @ -None What meds were considered but not given? Why? @ -None Did you discuss the management of the patient with other professionals? @ -No Did you reconcile home meds? @ -No Was smoking cessation discussed for >3mins.? @ -No Was critical care preformed (if so, how long)? @ -No Were there social determinants of health that impacted care today? How? (Homelessness, low income, unemployed, alcoholism, drug addiction, transportation, low edu. Level, literacy, decrease access to med. care, [place] [facility], rehab)? @ -No Was there de-escalation of care discussed even if they declined? (Discuss DNR or withdrawal of care, Hospice)? @ -No What co-morbidities impacted this encounter? (DM, HTN, Smoking, COPD, CAD, Cancer, CVA, Hep., AIDS, mental health diagnosis, sleep apnea, morbid obesity)? @ -A-fib, cancer Was patient admitted / discharged? @ -Admitted. Lab work demonstrates leukocytosis with a white blood cell count of 16.8. Amylase elevated at 398. Lipase within normal limits. LFTs also relatively unremarkable. Lab work also suggestive of dehydration. CT scan of the abdomen and pelvis demonstrates a markedly distended colon extending to the level of the splenic flexure with relatively depressed colon more distally suggestive of colonic ileus/pseudoobstruction. Constipation is also in the differential. Additionally, he has a possible subtle acute compression fracture of the L1 superior endplate without height loss. Findings reviewed with the patient. He was admitted to medicine for further management of colonic ileus/pseudoobstruction. Will keep patient n.p.o. for bowel rest. He is immunocompromised on Imbruvica and given the leukocytosis he was given a dose of Flagyl and Levaquin for any potential associated infection. Consult placed for general surgery. Hem/onc was consulted, as patient is known to their service. Additionally, orthopedics was consulted regarding possible acute compression fracture. Case discussed with ED attending Dr. Pitts. Undiagnosed new problem with uncertain prognosis? @ -None Drug Therapy requiring intensive monitoring for toxicity (Heparin, Nitro, Insulin, Cardizem)? @ -None Were any procedures done? @ -None Diagnosis/symptom? @ -Colonic ileus/pseudoobstruction, elevated amylase, L1 compression fracture Acute, or Chronic, or Acute on Chronic? @ -Acute Uncomplicated (without systemic symptoms) or Complicated (systemic symptoms)? @ -Complicated Side effects of treatment? @ -None Exacerbation, Progression, or Severe Exacerbation] @ -Not applicable Poses a threat to life or bodily function? @ -Yes, can lead to life-threatening infection - Lab Data Result diagrams: 06/21/24 23:20 06/21/24 23:20 Lab Results 01/14/25 01/14/25 01/14/25 Range/Units 23:20 23:20 23:20 WBC 16.8 H (3.8-10.6) k/uL RBC 6.10 H (4.30-5.90) m/uL Hgb 16.9 (13.0-17.5) gm/dL Hct 52.6 (39.0-53.0) % MCV 86.2 (80.0-100.0) fL MCH 27.6 (25.0-35.0) pg MCHC 32.0 (31.0-37.0) g/dL RDW 15.0 (11.5-15.5) % Plt Count 215 (150-450) k/uL MPV 9.0 Neutrophils % 89 % Lymphocytes % 5 % Monocytes % 4 % Eosinophils % 0 % Basophils % 0 % Neutrophils # 15.0 H (1.3-7.7) k/uL Lymphocytes # 0.8 L (1.0-4.8) k/uL Monocytes # 0.7 (0-1.0) k/uL Eosinophils # 0.0 (0-0.7) k/uL Basophils # 0.1 (0-0.2) k/uL Sodium 130 L (137-145) mmol/L Potassium 5.8 H (3.5-5.1) mmol/L Chloride 94 L (98-107) mmol/L Carbon Dioxide 27 (22-30) mmol/L Anion Gap 9 mmol/L BUN 37 H (9-20) mg/dL Creatinine 1.12 (0.66-1.25) mg/dL Est GFR (CKD-EPI)AfAm 71 (>60 ml/min/1.73 sqM) Est GFR (CKD-EPI)NonAf 61 (>60 ml/min/1.73 sqM) Glucose 155 H (74-99) mg/dL Plasma Lactic Acid Jason 1.6 (0.7-2.0) mmol/L Calcium 10.0 (8.4-10.2) mg/dL Magnesium 3.8 H (1.6-2.3) mg/dL Total Bilirubin 1.2 (0.2-1.3) mg/dL AST 35 (17-59) U/L ALT 18 (4-49) U/L Alkaline Phosphatase 140 H (38-126) U/L Total Protein 6.4 (6.3-8.2) g/dL Albumin 4.3 (3.5-5.0) g/dL Amylase 398 H* (30-110) U/L Lipase 53 (23-300) U/L TSH (0.465-4.680) mIU/L 06/21/24 Range/Units 23:20 WBC (3.8-10.6) k/uL RBC (4.30-5.90) m/uL Hgb (13.0-17.5) gm/dL Hct (39.0-53.0) % MCV (80.0-100.0) fL MCH (25.0-35.0) pg MCHC (31.0-37.0) g/dL RDW (11.5-15.5) % Plt Count (150-450) k/uL MPV Neutrophils % % Lymphocytes % % Monocytes % % Eosinophils % % Basophils % % Neutrophils # (1.3-7.7) k/uL Lymphocytes # (1.0-4.8) k/uL Monocytes # (0-1.0) k/uL Eosinophils # (0-0.7) k/uL Basophils # (0-0.2) k/uL Sodium (137-145) mmol/L Potassium (3.5-5.1) mmol/L Chloride (98-107) mmol/L Carbon Dioxide (22-30) mmol/L Anion Gap mmol/L BUN (9-20) mg/dL Creatinine (0.66-1.25) mg/dL Est GFR (CKD-EPI)AfAm (>60 ml/min/1.73 sqM) Est GFR (CKD-EPI)NonAf (>60 ml/min/1.73 sqM) Glucose (74-99) mg/dL Plasma Lactic Acid Jason (0.7-2.0) mmol/L Calcium (8.4-10.2) mg/dL Magnesium (1.6-2.3) mg/dL Total Bilirubin (0.2-1.3) mg/dL AST (17-59) U/L ALT (4-49) U/L Alkaline Phosphatase (38-126) U/L Total Protein (6.3-8.2) g/dL Albumin (3.5-5.0) g/dL Amylase (30-110) U/L Lipase (23-300) U/L TSH 7.490 H (0.465-4.680) mIU/L - Radiology Data Radiology results: report reviewed, image reviewed Disposition Clinical Impression: Ileus, Abdominal pain, Elevated amylase, Pseudoobstruction of colon, Compression fracture of L1 lumbar vertebra Disposition: ADMITTED IP TO THIS HOSP
[2024-06-21 23:34] LABS: Basophils # (A) 0.1 k/uL (0-0.2); Basophils % (A) 0 %; Eosinophils % (A) 0 %; HCT 52.6 % (39.0-53.0); HGB 16.9 gm/dL (13.0-17.5); Lymphocytes # (A) 0.8 k/uL (1.0-4.8); Lymphocytes % (A) 5 %; MCH 27.6 pg (25.0-35.0); MCV 86.2 fL (80.0-100.0); Monocytes # (A) 0.7 k/uL (0-1.0); Monocytes % (A) 4 %; Neutrophils % (A) 89 %; Platelet Count 215 k/uL (150-450); WBC 16.8 k/uL (3.8-10.6)
[2024-06-21 23:45] LABS: ALT 18 U/L (4-49); AST 35 U/L (17-59); African American GFR (CKD) 71 (>60 ml/min/1.73 sqM); Albumin 4.3 g/dL (3.5-5.0); Alkaline Phosphatase 140 U/L (38-126); Anion Gap 9 mmol/L; Blood Urea Nitrogen 37 mg/dL (9-20); Carbon Dioxide 27 mmol/L (22-30); Chloride 94 mmol/L (98-107); Glucose 155 mg/dL (74-99); Lipase 53 U/L (23-300); Magnesium 3.8 mg/dL (1.6-2.3); Non-African American GFR(CKD) 61 (>60 ml/min/1.73 sqM); Sodium 130 mmol/L (137-145); Total Bilirubin 1.2 mg/dL (0.2-1.3); Total Protein 6.4 g/dL (6.3-8.2)
[2024-06-21] MEDS: HYDROmorphone 0.5 MG/0.5 ML SYRINGE IVP STA (23:49)
[2024-06-21] MEDS: KETOROLAC 15 MG/ML 1 ML VIAL IVP STA (23:49)
[2024-06-21 23:50] LABS: Amylase 398 U/L (30-110); Potassium 5.8 mmol/L (3.5-5.1)
[2024-06-21] MEDS: ONDANSETRON 4 MG/2 ML VIAL IVP STA (23:50)
--- NOTE | 2024-06-22 00:47 | CT ---
EXAM: CT Abdomen and Pelvis With Intravenous Contrast CLINICAL HISTORY: ITS.REASON CT Reason: abdominal pain, acute, nonlocalized TECHNIQUE: Axial computed tomography images of the abdomen and pelvis with intravenous contrast. CTDI is 15.7 mGy and DLP is 722.3 mGy-cm. This CT exam was performed using one or more of the following dose reduction techniques: automated exposure control, adjustment of the mA and/or kV according to patient size, and/or use of iterative reconstruction technique. Delayed imaging was performed. COMPARISON: 12/23/16 FINDINGS: Lung bases: See below. Pleural space: Small chronic left pleural effusion with pleural thickening and adjacent round atelectasis at the left lung base. ABDOMEN: Liver: Unremarkable. No mass. Gallbladder and bile ducts: Gallbladder not visualized, presumed surgically absent. No biliary dilatation for patient age. Pancreas: Unremarkable. No mass. No ductal dilation. Spleen: Unremarkable. No splenomegaly. Adrenals: Unremarkable. No mass. Kidneys and ureters: Unremarkable. No solid mass. No hydronephrosis. Stomach and bowel: Colonic diverticulosis. Markedly distended colon extending to the level of the splenic flexure, with relatively decompressed colon more distally. No mechanical small bowel obstruction. No mucosal thickening. PELVIS: Appendix: Appendix not identified. Bladder: Unremarkable. No mass. Reproductive: Prostatomegaly. ABDOMEN and PELVIS: Intraperitoneal space: Trace ascites adjacent to the liver. No free air. Bones/joints: Possible subtle acute compression fracture of the L1 superior endplate without height loss (sagittal 61). Chronic compression fractures at L2 and L3. No dislocation. Soft tissues: Small fat-containing inguinal hernias. Vasculature: Atherosclerosis. No abdominal aortic aneurysm. Lymph nodes: Unremarkable. No enlarged lymph nodes. Tubes, lines and devices: Percutaneous gastrostomy tube in place with balloon inflated in the gastric lumen. IMPRESSION: 1. Possible subtle acute compression fracture of the L1 superior endplate without height loss (sagittal 61). 2. Markedly distended colon extending to the level of the splenic flexure, with relatively decompressed colon more distally. Appearance suggests colonic ileus/pseudoobstruction, with conventional constipation a differential consideration. 3. Small chronic left pleural effusion with pleural thickening and adjacent round atelectasis at the left lung base.
[2024-06-22] MEDS ORDERED: NALOXONE 0.4 MG/ML 1 ML VIAL IV PRN (00:55)
[2024-06-22] MEDS ORDERED: ONDANSETRON 4 MG/2 ML VIAL IVP PRN (00:55)
[2024-06-22] MEDS ORDERED: HYDROcodone/APAP 5-325MG 1 EACH TAB PO PRN (00:55)
[2024-06-22] MEDS ORDERED: MORPHINE SULFATE 4 MG/ML SYRINGE IV PRN (00:55)
[2024-06-22] MEDS: SODIUM CHLORIDE 0.9% 500 ML 500 ML IV STA (01:54)
[2024-06-22] MEDS: HYDROmorphone 1 MG/ML 1 ML SYRINGE IVP STA (02:25)
[2024-06-22] MEDS: SODIUM CHLORIDE 0.9% 1,000 ML IV ONE (02:25)
[2024-06-22] MEDS: metroNIDAZOLE-NS PMX 500 MG in SALINE 1 100ML.BAG IVPB SCH (02:26)
[2024-06-22] MEDS: METOCLOPRAMIDE 5 MG/ML 2 ML VIAL IVP STA (02:54)
[2024-06-22] MEDS ORDERED: HYDROmorphone 1 MG/ML 1 ML SYRINGE IVP PRN (03:40)
[2024-06-22] MEDS: LEVOFLOXACIN 750MG-D5W PMX 750 MG in DEXTROSE/WATER 1 150ML.BAG IVPB SCH (03:46)
[2024-06-22 04:41] LABS: T4, Free (Free Thyroxine) 1.95 ng/dL (0.78-2.19)
[2024-06-22 06:50] LABS: Appearance,Urine Clear (Clear); Bacteria,Urine Rare /hpf; Bilirubin,Urine Negative (Negative); Blood,Urine Negative (Negative); Color,Urine Yellow; Glucose,Urine (UA) Negative (Negative); Hyaline Casts,Urine 51 /lpf (0-2); Ketones,Urine Trace (Negative); Leukocyte Esterase,Urine Trace (Negative); Mucus,Urine Few /hpf; Nitrite,Urine Negative (Negative); Protein,Urine Trace (Negative); RBC,Urine 1 /hpf (0-5); WBC,Urine 11 /hpf (0-5)
[2024-06-22 07:09] LABS: Specific Gravity,Urine >1.050 (1.001-1.035)
[2024-06-22] MEDS: PANTOPRAZOLE 40 MG/10 ML VIAL IV SCH (08:27)
[2024-06-22] MEDS: polyethylene glycoL 3350 17 GM POWD.PACK PEG/G-TUBE SCH (10:34)
--- NOTE | 2024-06-22 12:30 | P.GSCN ---
History of Present Illness Consult date: 06/22/24 History of present illness: CHIEF COMPLAINT: Abdominal pain HISTORY OF PRESENT ILLNESS: This is a 83-year-old male who presents the hospital with abdominal pain. He was having nausea and vomiting. He reports that his abdomen is very distended yesterday. He was able to have 2 bowel movements and felt that his abdomen is softer. His vomiting has improved. Patient reports from drinking prune juice and laxatives at home with no results. Patient's tube feeds are currently on hold. Patient reports that he has a PEG tube due to his leukemia and damage to the nerves in his throat causing him difficulty with swallowing. PAST MEDICAL HISTORY: See below PAST SURGICAL HISTORY: See below MEDICATIONS: See below ALLERGIES: See below SOCIAL HISTORY: No illicit drug use. REVIEW OF SYSTEMS: CONSTITUTIONAL: Denies fever or chills. HEENT: Denies blurred vision, vision changes, or eye pain. Denies hemoptysis CARDIOVASCULAR: Denies chest pain or pressure. RESPIRATORY: No shortness of breath. GASTROINTESTINAL: See HPI for pertinent findings HEMATOLOGIC: Denies bleeding disorders. GENITOURINARY: Denies any blood in urine or increased urinary frequency. SKIN: Denies pruitis. Denies rash. PHYSICAL EXAM: VITAL SIGNS: Reviewed GENERAL: Well-developed in no acute distress. HEENT: No sclera icterus. Extraocular movements grossly intact. Moist buccal mucosa. Head is atraumatic, normocephalic. No nasal drainage. ABDOMEN: Soft. Distended. PEG tube in place. No rebound or guarding noted. NEUROLOGIC: Alert and oriented. Cranial nerves II through XII grossly intact. LABORATORY DATA: WBC 16.8 Hgb 16.9 platelets 215 Sodium 130 potassium 5.8 creatinine 1.12 Lactic acid 1.6 Amylase 398 lipase 53 IMAGING: CT scan abdomen pelvis reports a possible subtle acute compression fracture L1 superior endplate. Marked distended colon extending to the level of the splenic flexure with relative decompressed colon more distally. Appearance suggest colonic ileus/pseudoobstruction. With conventional constipation differential consideration. Small chronic pleural effusion and wall thickening. ASSESSMENT: 1. Constipation 2. Ileus 3. History of chronic lymphocytic leukemia PLAN: -Add MiraLAX daily for constipation -Okay to resume tube feeds starting at 10 mL/h -Continue to monitor Physician Trainman note has been reviewed by physician. Signing provider agrees with the documented findings, assessment, and plan of care. Attestation Patient seen and examined at bedside in the emergency department. Presented with chief complaint of abdominal pain and concern for constipation. He states that prior to his arrival his bowel function had decreased. He attributes this to some dietary changes. CT of the abdomen was performed with fluoroscopy to go [place] distended colon extending to the level of the splenic flexure with relative decompressed colon more distally. After CT completed, patient states he had 2 large bowel movements and has felt significantly better since the bowel movements. It appears that he had constipation and possible ileus secondary to the constipation. We will add bowel regimen for the patient and okay to resume tube feeding. We will continue to monitor. Maryam Archibald DO Past Medical History Past Medical History: Atrial Fibrillation, Cancer, COPD, Neurologic Disorder, Osteoarthritis (OA), Pneumonia, Prostate Disorder, Thyroid Disorder Additional Past Medical History / Comment(s): Pt recently admitted to [facility] on 02/17/17 with L lower lobe pneumonia, small B cell lymphoma. 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 Past Anesthesia/Blood Transfusion Reactions: Blood Transfusion Reaction Additional Past Anesthesia/Blood Transfusion Reaction / Comm: GAVE BENADRYL AND RAN SLOW. Has had multiple transfusuions and has a reaction every time Past Psychological History: No Psychological Hx Reported Smoking Status: Unknown if ever smoked Past Alcohol Use History: Unable to Obtain Past Drug Use History: None Reported - Past Family History Father Family Medical History: Dementia Mother Family Medical History: No Reported History Medications and Allergies Home Medications Medication Instructions Recorded Confirmed Type Multivitamins, Thera [Multivitamin 1 tab PEG/G-TUBE DAILY 12/21/16 06/22/24 History (formulary)] Imbruvica 420 mg PEG/G-TUBE DAILY 04/06/17 06/22/24 History Apixaban [Eliquis] 2.5 mg PEG/G-TUBE Q2D 08/31/23 06/22/24 History Flecainide [Tambocor] 50 mg PEG/G-TUBE Q12HR 08/31/23 06/22/24 History busPIRone HCl [Buspar] 5 mg PEG/G-TUBE TID PRN 08/31/23 06/22/24 History Levothyroxine Sodium [Synthroid] 125 mcg PEG/G-TUBE DAILY 30 Days 09/03/23 06/22/24 Rx #30 tab Clotrimazole/Betameth Cream 1 applic TOPICAL DAILY 06/22/24 06/22/24 History [Lotrisone] Fluconazole [Diflucan] 150 mg PEG/G-TUBE SA 06/22/24 06/22/24 History Allergies Allergy/AdvReac Type Severity Reaction Status Date / Time amoxicillin Allergy Rash/Hives Verified 06/22/24 09:03 clavulanic acid Allergy Rash/Hives Verified 06/22/24 09:03 [From Augmentin] rituximab [From Rituxan] Allergy Anaphylaxis Verified 06/22/24 09:03 Surgical - Exam Osteopathic Statement: *. No significant issues noted on an osteopathic st ructural exam other than those noted in the History and Physical/Consult. Vital Signs Temp Pulse Resp BP Pulse Ox 97.7 F 53 L 17 102/65 93 L 06/21/24 22:40 06/21/24 22:40 06/21/24 22:40 06/21/24 22:40 06/21/24 22:40 Results - Labs 06/21/24 23:20 06/21/24 23:20 Abnormal Lab Results - Last 24 Hours (Table) 06/21/24 06/21/24 06/21/24 Range/Units 23:20 23:20 23:20 WBC 16.8 H (3.8-10.6) k/uL RBC 6.10 H (4.30-5.90) m/uL Neutrophils # 15.0 H (1.3-7.7) k/uL Lymphocytes # 0.8 L (1.0-4.8) k/uL Sodium 130 L (137-145) mmol/L Potassium 5.8 H (3.5-5.1) mmol/L Chloride 94 L (98-107) mmol/L BUN 37 H (9-20) mg/dL Glucose 155 H (74-99) mg/dL Magnesium 3.8 H (1.6-2.3) mg/dL Alkaline Phosphatase 140 H (38-126) U/L Amylase 398 H* (30-110) U/L TSH 7.490 H (0.465-4.680) mIU/L Ur Specific [place] (1.001-1.035) Urine Protein (Negative) Urine Ketones (Negative) Ur Leukocyte Esterase (Negative) Urine WBC (0-5) /hpf Urine Bacteria (None) /hpf Hyaline Casts (0-2) /lpf Urine Mucus (None) /hpf 06/22/24 Range/Units 06:17 WBC (3.8-10.6) k/uL RBC (4.30-5.90) m/uL Neutrophils # (1.3-7.7) k/uL Lymphocytes # (1.0-4.8) k/uL Sodium (137-145) mmol/L Potassium (3.5-5.1) mmol/L Chloride (98-107) mmol/L BUN (9-20) mg/dL Glucose (74-99) mg/dL Magnesium (1.6-2.3) mg/dL Alkaline Phosphatase (38-126) U/L Amylase (30-110) U/L TSH (0.465-4.680) mIU/L Ur Specific [place] >1.050 H (1.001-1.035) Urine Protein Trace H (Negative) Urine Ketones Trace H (Negative) Ur Leukocyte Esterase Trace H (Negative) Urine WBC 11 H (0-5) /hpf Urine Bacteria Rare H (None) /hpf Hyaline Casts 51 H (0-2) /lpf Urine Mucus Few H (None) /hpf Diabetes panel 06/21/24 Range/Units 23:20 Sodium 130 L (137-145) mmol/L Potassium 5.8 H (3.5-5.1) mmol/L Chloride 94 L (98-107) mmol/L Carbon Dioxide 27 (22-30) mmol/L BUN 37 H (9-20) mg/dL Creatinine 1.12 (0.66-1.25) mg/dL Glucose 155 H (74-99) mg/dL Calcium 10.0 (8.4-10.2) mg/dL AST 35 (17-59) U/L ALT 18 (4-49) U/L Alkaline Phosphatase 140 H (38-126) U/L Total Protein 6.4 (6.3-8.2) g/dL Albumin 4.3 (3.5-5.0) g/dL Thyroid panel 06/21/24 Range/Units 23:20 TSH 7.490 H (0.465-4.680) mIU/L Calcium panel 06/21/24 Range/Units 23:20 Calcium 10.0 (8.4-10.2) mg/dL Albumin 4.3 (3.5-5.0) g/dL Pituitary panel 06/21/24 06/21/24 Range/Units 23:20 23:20 Sodium 130 L (137-145) mmol/L Potassium 5.8 H (3.5-5.1) mmol/L Chloride 94 L (98-107) mmol/L Carbon Dioxide 27 (22-30) mmol/L BUN 37 H (9-20) mg/dL Creatinine 1.12 (0.66-1.25) mg/dL Glucose 155 H (74-99) mg/dL Calcium 10.0 (8.4-10.2) mg/dL TSH 7.490 H (0.465-4.680) mIU/L Adrenal panel 06/21/24 Range/Units 23:20 Sodium 130 L (137-145) mmol/L Potassium 5.8 H (3.5-5.1) mmol/L Chloride 94 L (98-107) mmol/L Carbon Dioxide 27 (22-30) mmol/L BUN 37 H (9-20) mg/dL Creatinine 1.12 (0.66-1.25) mg/dL Glucose 155 H (74-99) mg/dL Calcium 10.0 (8.4-10.2) mg/dL Total Bilirubin 1.2 (0.2-1.3) mg/dL AST 35 (17-59) U/L ALT 18 (4-49) U/L Alkaline Phosphatase 140 H (38-126) U/L Total Protein 6.4 (6.3-8.2) g/dL Albumin 4.3 (3.5-5.0) g/dL
--- NOTE | 2024-06-22 13:23 | P.HPIM ---
History of Present Illness H&P Date: 06/22/24 History of present illness; patient is a 83-year-old gentleman with past medical history significant for chronic lymphocytic leukemia, history of Fletcher's palsy, history of paroxysmal atrial fibrillation, history of dysphagia with feeding tube in place, hypothyroidism who presented the ER because abdominal pain. Patient stated that he was all right 3 days back when he started developing abdominal pain. Patient stated he was not having any bowel movements for the last 3 days. Patient is passing small amounts of gas. Patient also started having nausea and vomiting. Abdominal pain is located the lower quadrants and is radiating to his back, denies any aggravating or relieving factor associated abdominal pain. There is no complaint of urinary hesitancy urgency or incontinence. Because of this abdominal pain, patient presented to the ERInitial lab work done in the ER showed WB 16.8, hemoglobin 16.9, platelet count 215, sodium 130, potassium 5.8, BUN 37, creatinine 1.12, glucose 115, magnesium 3.8, amylase 398 lipase 3 TSH 7.4 UA done showed trace leukocyte Estrace, urine nitrate negative, urine WBC 11 EKG done in the ER showed heart rate of80 , no ST segment elevation or depressio n seen, no T-wave inversions seen. CT abdomen pelvis done showed possible subtle acute compression fracture of the L1 superior endplate without height loss. Markedly distended colon extending to the level of splenic flexure with relatively decompressed colon more distally appearance suggests colonic ileus versus, pseudoobstruction with conventional constipation differential diagnosis Patient admitted to internal medicine service REVIEW OF SYSTEMS: CONSTITUTIONAL: No fever, no malaise, no fatigue. HEENT: No recent visual problems or hearing problems. Denied any sore throat. CARDIOVASCULAR: No chest pain, orthopnea, PND, no palpitations, no syncope. PULMONARY: No shortness of breath, no cough, no hemoptysis. GASTROINTESTINAL: As mentioned above NEUROLOGICAL: No headaches, no weakness, no numbness. HEMATOLOGICAL: Denies any bleeding or petechiae. GENITOURINARY: Denies any burning micturition, frequency, or urgency. MUSCULOSKELETAL/RHEUMATOLOGICAL: Denies any joint pain, swelling, or any muscle pain. ENDOCRINE: Denies any polyuria or polydipsia. The rest of the 14-point review of systems is negative. PHYSICAL EXAMINATION: GENERAL: The patient is alert and oriented x3, not in any acute distress. Well developed, well nourished. HEENT: Pupils are round and equally reacting to light. EOMI. No scleral icterus. No conjunctival pallor. Normocephalic, atraumatic. No pharyngeal erythema. No thyromegaly. CARDIOVASCULAR: S1 and S2 present. No murmurs, rubs, or gallops. PULMONARY: Chest is clear to auscultation, no wheezing or crackles. ABDOMEN: Soft, nontender, nondistended, normoactive bowel sounds. No palpable organomegaly. PEG tube seen MUSCULOSKELETAL: No joint swelling or deformity. EXTREMITIES: No cyanosis, clubbing, or pedal edema. NEUROLOGICAL: Gross neurological examination did not reveal any focal deficits. SKIN: No rashes. Assessment and plan Abdominal pain Large bowel obstruction L1 compression fracture History of paroxysmal atrial fibrillation History of hypothyroidism Chronic lymphocytic leukemia History of Fletcher's palsy Monitor vital signs Monitor CBC Monitor CMP Continue telemetry monitoring Keep patient n.p.o. Hold tube feeding Ordered antiemetics Ordered IV fluids Ordered IV pain medications Start patient on IV Levaquin and Flagyl General Surgery consulted Orthopedic consulted for compression fracture Labs and medication were reviewed.. Continue same treatment. Continue with symptomatic treatment. Resume home medication. Monitor labs and vitals. DVT and GI prophylaxis. Further recommendations as per clinical course of the patient Dictation was produced using [employer] dictation software. please excuse any grammatical, word or spelling errors. Past Medical History Past Medical History: Atrial Fibrillation, Cancer, COPD, Neurologic Disorder, Osteoarthritis (OA), Pneumonia, Prostate Disorder, Thyroid Disorder Additional Past Medical History / Comment(s): Pt recently admitted to [facility] on 02/17/17 with L lower lobe pneumonia, small B cell lymphoma. 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 Past Anesthesia/Blood Transfusion Reactions: Blood Transfusion Reaction Additional Past Anesthesia/Blood Transfusion Reaction / Comment(s): GAVE BENADRYL AND RAN SLOW. Has had multiple transfusuions and has a reaction every time Past Psychological History: No Psychological Hx Reported Smoking Status: Unknown if ever smoked Past Alcohol Use History: Unable to Obtain Past Drug Use History: None Reported - Past Family History Father Family Medical History: Dementia Mother Family Medical History: No Reported History Medications and Allergies Home Medications Medication Instructions Recorded Confirmed Type Multivitamins, Thera [Multivitamin 1 tab PEG/G-TUBE DAILY 12/21/16 06/22/24 History (formulary)] Imbruvica 420 mg PEG/G-TUBE DAILY 04/06/17 06/22/24 History Apixaban [Eliquis] 2.5 mg PEG/G-TUBE Q2D 08/31/23 06/22/24 History Flecainide [Tambocor] 50 mg PEG/G-TUBE Q12HR 08/31/23 06/22/24 History busPIRone HCl [Buspar] 5 mg PEG/G-TUBE TID PRN 08/31/23 06/22/24 History Levothyroxine Sodium [Synthroid] 125 mcg PEG/G-TUBE DAILY 30 Days 09/03/23 06/22/24 Rx #30 tab Clotrimazole/Betameth Cream 1 applic TOPICAL DAILY 06/22/24 06/22/24 History [Lotrisone] Fluconazole [Diflucan] 150 mg PEG/G-TUBE SA 06/22/24 06/22/24 History Allergies Allergy/AdvReac Type Severity Reaction Status Date / Time amoxicillin Allergy Rash/Hives Verified 06/22/24 09:03 clavulanic acid Allergy Rash/Hives Verified 06/22/24 09:03 [From Augmentin] rituximab [From Rituxan] Allergy Anaphylaxis Verified 06/22/24 09:03 Physical Exam Vitals: Vital Signs Temp Pulse Resp BP Pulse Ox 06/22/24 09:07 78 18 98 06/22/24 08:25 97.6 F 78 18 113/71 97 06/22/24 07:39 97.6 F 95 18 105/74 95 06/22/24 06:00 97.7 F 58 L 18 111/55 97 06/22/24 01:00 85 18 119/82 96 06/22/24 00:45 84 18 124/84 94 L 06/21/24 22:40 97.7 F 53 L 17 102/65 93 L Intake and Output 06/21/24 06/22/24 06/22/24 22:59 06:59 14:59 Other: # Bowel Movements 1 Weight 71.214 kg Results CBC & Chem 7: 06/21/24 23:20 06/21/24 23:20 Labs: Abnormal Lab Results - Last 24 Hours (Table) 06/21/24 06/21/24 06/21/24 Range/Units 23:20 23:20 23:20 WBC 16.8 H (3.8-10.6) k/uL RBC 6.10 H (4.30-5.90) m/uL Neutrophils # 15.0 H (1.3-7.7) k/uL Lymphocytes # 0.8 L (1.0-4.8) k/uL Sodium 130 L (137-145) mmol/L Potassium 5.8 H (3.5-5.1) mmol/L Chloride 94 L (98-107) mmol/L BUN 37 H (9-20) mg/dL Glucose 155 H (74-99) mg/dL Magnesium 3.8 H (1.6-2.3) mg/dL Alkaline Phosphatase 140 H (38-126) U/L Amylase 398 H* (30-110) U/L TSH 7.490 H (0.465-4.680) mIU/L Ur Specific [place] (1.001-1.035) Urine Protein (Negative) Urine Ketones (Negative) Ur Leukocyte Esterase (Negative) Urine WBC (0-5) /hpf Urine Bacteria (None) /hpf Hyaline Casts (0-2) /lpf Urine Mucus (None) /hpf 06/22/24 Range/Units 06:17 WBC (3.8-10.6) k/uL RBC (4.30-5.90) m/uL Neutrophils # (1.3-7.7) k/uL Lymphocytes # (1.0-4.8) k/uL Sodium (137-145) mmol/L Potassium (3.5-5.1) mmol/L Chloride (98-107) mmol/L BUN (9-20) mg/dL Glucose (74-99) mg/dL Magnesium (1.6-2.3) mg/dL Alkaline Phosphatase (38-126) U/L Amylase (30-110) U/L TSH (0.465-4.680) mIU/L Ur Specific [place] >1.050 H (1.001-1.035) Urine Protein Trace H (Negative) Urine Ketones Trace H (Negative) Ur Leukocyte Esterase Trace H (Negative) Urine WBC 11 H (0-5) /hpf Urine Bacteria Rare H (None) /hpf Hyaline Casts 51 H (0-2) /lpf Urine Mucus Few H (None) /hpf
[2024-06-22] MEDS: SODIUM CHLORIDE 0.9% 250 ML with PAMIDRONATE 30 MG IV ONE (13:57)
--- NOTE | 2024-06-22 14:24 | P.CNOR ---
History of Present Illness - [facility] Consult date: 06/22/24 Requesting physician: Maria Luz Alanis Consult reason: other (Possible L1 compression fracture) History of present illness: Patient is an 83-year-old male who presented to the emergency department due to abdominal pain. Patient does have a past medical history significant for Fletcher's palsy, paroxysmal atrial fibrillation, CLL, hypothyroidism. Orthopedics was consulted due to possible vertebral compression fracture at L1. Patient was seen at bedside this morning lying in the semirecumbent position with present during encounter. Patient states about 3 days ago he began developing abdominal pain and has not had any bowel movements over the last 3 days. He says he been passing small amounts of gas. Patient just states over the past couple days the pain is started to radiate into the back. Patient's states over the past 6 months patient seems to been mentioning he has been having more back pain and his posture has gotten worse. She states he seems to lean forward more and flex the back. She says he was not able to stand up straight for very long periods of time. Patient denies any issues with bowel or bladder control. Patient denies any saddle anesthesia. Patient is not able to exactly state the location of the back where he does have pain. Patient mostly states the pain is in the abdomen and sometimes the pain is so intense he feels it in his back. Patient denies any falls/traumas recently. Patient denies any previous history of orthopedic spine surgery. Patient denies any other orthopedic complaints at this time. Past Medical History Past Medical History: Atrial Fibrillation, Cancer, COPD, Neurologic Disorder, Osteoarthritis (OA), Pneumonia, Prostate Disorder, Thyroid Disorder Additional Past Medical History / Comment(s): Pt recently admitted to [facility] on 02/17/17 with L lower lobe pneumonia, small B cell lymphoma. 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 cancer of the throat History of Any Multi-Drug Resistant Organisms: MRSA Year Discovered:: 02/17/17 MDRO Source:: Sputum Past Surgical History: Tonsillectomy Additional Past Surgical History / Comment(s): Peg tube insertion, colo noscopies/polypectomies, rectal fissure repair, bilateral knee arthroscopies, THYROID SURGERY-1/2 removed. Past Anesthesia/Blood Transfusion Reactions: Blood Transfusion Reaction Additional Past Anesthesia/Blood Transfusion Reaction / Comm: GAVE BENADRYL AND RAN SLOW. Has had multiple transfusuions and has a reaction every time Past Psychological History: No Psychological Hx Reported Smoking Status: Unknown if ever smoked Past Alcohol Use History: Unable to Obtain Past Drug Use History: None Reported - Past Family History Father Family Medical History: Dementia Mother Family Medical History: No Reported History Medications and Allergies Home Medications Medication Instructions Recorded Confirmed Type Multivitamins, Thera [Multivitamin 1 tab PEG/G-TUBE DAILY 12/21/16 06/22/24 History (formulary)] Imbruvica 420 mg PEG/G-TUBE DAILY 04/06/17 06/22/24 History Apixaban [Eliquis] 2.5 mg PEG/G-TUBE Q2D 08/31/23 06/22/24 History Flecainide [Tambocor] 50 mg PEG/G-TUBE Q12HR 08/31/23 06/22/24 History busPIRone HCl [Buspar] 5 mg PEG/G-TUBE TID PRN 08/31/23 06/22/24 History Levothyroxine Sodium [Synthroid] 125 mcg PEG/G-TUBE DAILY 30 Days 09/03/23 06/22/24 Rx #30 tab Clotrimazole/Betameth Cream 1 applic TOPICAL DAILY 06/22/24 06/22/24 History [Lotrisone] Fluconazole [Diflucan] 150 mg PEG/G-TUBE SA 06/22/24 06/22/24 History Allergies Allergy/AdvReac Type Severity Reaction Status Date / Time amoxicillin Allergy Rash/Hives Verified 06/22/24 09:03 clavulanic acid Allergy Rash/Hives Verified 06/22/24 09:03 [From Augmentin] rituximab [From Rituxan] Allergy Anaphylaxis Verified 06/22/24 09:03 Physical Examination Inspection: Negative for any open fractures, significant erythema/ecchymosis. Positive for swelling diffusely throughout the right upper extremity with some mottling. Sensation: Equal, symmetric, bilat intact throughout the upper and lower extremities on exam. Palpation: There is some generalized tenderness to patient over the bilateral SI joints. Nontender to palpation throughout thoracic and lumbar spine at midline and in the paravertebral region. Range of motion: Patient does have good range of motion throughout bilateral upper extremities and bilateral lower extremities on exam. Motor: 4+/5 in all major motor groups in bilateral upper and lower extremities Neurovascular: Radial pulse intact, 2+ bilaterally. Cap refill under 3 seconds in digits of upper extremities. Special test: Negative clonus bilaterally. Negative Kristy bilaterally. Negative Homans bilaterally. Results - Labs Labs: Abnormal Lab Results - Last 24 Hours (Table) 06/21/24 06/21/24 06/21/24 Range/Units 23:20 23:20 23:20 WBC 16.8 H (3.8-10.6) k/uL RBC 6.10 H (4.30-5.90) m/uL Neutrophils # 15.0 H (1.3-7.7) k/uL Lymphocytes # 0.8 L (1.0-4.8) k/uL Sodium 130 L (137-145) mmol/L Potassium 5.8 H (3.5-5.1) mmol/L Chloride 94 L (98-107) mmol/L BUN 37 H (9-20) mg/dL Glucose 155 H (74-99) mg/dL Magnesium 3.8 H (1.6-2.3) mg/dL Alkaline Phosphatase 140 H (38-126) U/L Amylase 398 H* (30-110) U/L TSH 7.490 H (0.465-4.680) mIU/L Ur Specific [place] (1.001-1.035) Urine Protein (Negative) Urine Ketones (Negative) Ur Leukocyte Esterase (Negative) Urine WBC (0-5) /hpf Urine Bacteria (None) /hpf Hyaline Casts (0-2) /lpf Urine Mucus (None) /hpf 06/22/24 Range/Units 06:17 WBC (3.8-10.6) k/uL RBC (4.30-5.90) m/uL Neutrophils # (1.3-7.7) k/uL Lymphocytes # (1.0-4.8) k/uL Sodium (137-145) mmol/L Potassium (3.5-5.1) mmol/L Chloride (98-107) mmol/L BUN (9-20) mg/dL Glucose (74-99) mg/dL Magnesium (1.6-2.3) mg/dL Alkaline Phosphatase (38-126) U/L Amylase (30-110) U/L TSH (0.465-4.680) mIU/L Ur Specific [place] >1.050 H (1.001-1.035) Urine Protein Trace H (Negative) Urine Ketones Trace H (Negative) Ur Leukocyte Esterase Trace H (Negative) Urine WBC 11 H (0-5) /hpf Urine Bacteria Rare H (None) /hpf Hyaline Casts 51 H (0-2) /lpf Urine Mucus Few H (None) /hpf H & H 06/21/24 Range/Units 23:20 Hgb 16.9 (13.0-17.5) gm/dL Hct 52.6 (39.0-53.0) % Result Diagrams: 06/21/24 23:20 06/21/24 23:20 - Diagnostic results Comments: CT of the abdomen/pelvis has been reviewed. There is evident vertebral compression fractures at L2 and L3. At L3 appears to be more acute. Some generalized degenerative disc disease and spondylosis Assessment and Plan Assessment: 1. Vertebral compression fractures at L2, L3; lumbar spondylosis; degenerative disc disease Plan: 1. Vertebral compression fractures at L2, L3; lumbar spondylosis; degenerative disc disease - CT of the abdomen/pelvis has been reviewed. There is evident vertebral compression fractures at L2 and L3. At L3 appears to be more acute. Some generalized degenerative disc disease and spondylosis. I did discuss the findings of the imaging and exam with my attending, Dr. Lees. I did mention with the patient and his at bedside possibility of doing surgery in the form of kyphoplasty of vertebral compression fractures. At this time patient and would like to move forward with conservative treatments with an LSO brace. LSO brace prescription was placed in chart. Patient may weight-bear as tolerated with walker and assistance as needed. PT/OT recommendations. We will defer the rest of the management to the primary medical team during the patient's stay in the hospital. Orthopedics will be available as needed. Please do not hesitate to reach out to us for any questions. 2. Appreciate medical management 3. Pain management -Tylenol; Rindge 4. GI prophylaxis -MiraLAX; Protonix 5. DVT prophylaxis recs 6. PT/OT -LSO brace prescription placed in chart. Weightbearing as tolerated with walker and assistance as needed 7. Encourage incentive spirometer use 8. Appreciate consult Time with Patient: Less than 30
--- NOTE | 2024-06-22 18:45 | P.CONS ---
History of Present Illness - Reason for Consult Consult date: 06/22/24 CLL Requesting physician: Maria Luz Alanis - Chief Complaint constipation and back pain - History of Present Illness Mr. Lopez is an 83-year-old male with a history of CLL diagnosed in 2007. His CLL was mostly asymptomatic so, he was never on any active treatment until 2016. He was treated with rituximab and Bendamustine at [facility]. He was then started on ibrutinib and been on since 03/2017. Last seen in our office 03/18/2024 for IVIG infusion. Counts have been stable. He was brought to ER with c/o abdominal pain around and inferior to naval, gener alized abd bloating, and constipation, no BM for 2-3 days. He did vomit x 1 after taking his meds this AM. He denied fevers, recent illness, new cough. Has chronic BLE swelling and RUE swelling. CTAP with IV contrast reports distended colon, ileus, compression fracture L4. WBC 16.8, elevated ANC at 15, hemoglobin 16.9, platelets 215,000. Potassium was elevated at 5.8 on admit, sodium 130, BUN 37, creatinine 1.12. Magnesium slightly elevated at 3.8. Amylase 398. Urinary analysis slightly suspicious he had an orthopedic consultation for the L1 compression fracture he has had surgical consultation for ileus. Review of Systems 10 point ROS is neg except as stated in HPI Past Medical History Past Medical History: Atrial Fibrillation, Cancer, COPD, Neurologic Disorder, Osteoarthritis (OA), Pneumonia, Prostate Disorder, Thyroid Disorder Additional Past Medical History / Comment(s): Pt recently admitted to [facility] on 02/17/17 with L lower lobe pneumonia, small B cell lymphoma. Other Hx: Atrial flutter with RVR, Chronic lymphocytic leukemia, hypogammaglobulinemia-has recei buzz IV IGg, anemia, dysphagia-NPO with peg tube, chronic bronchitis, pneumonia with sepsis, hypothyroidism-surgery d/t nodules, viral skin rash- chickenpox rash, Fletcher's palsy L face, bilateral tinnitis. cancer of the throat History of Any Multi-Drug Resistant Organisms: MRSA Year Discovered:: 02/17/17 MDRO Source:: Sputum Past Surgical History: Tonsillectomy Additional Past Surgical History / Comment(s): Peg tube insertion, colonoscopies/polypectomies, rectal fissure repair, bilateral knee arthroscopies, THYROID SURGERY-1/2 removed. Past Anesthesia/Blood Transfusion Reactions: Blood Transfusion Reaction Additional Past Anesthesia/Blood Transfusion Reaction / Comm: GAVE BENADRYL AND RAN SLOW. Has had multiple transfusuions and has a reaction every time Past Psychological History: No Psychological Hx Reported Smoking Status: Unknown if ever smoked Past Alcohol Use History: Unable to Obtain Past Drug Use History: None Reported - Past Family History Father Family Medical History: Dementia Mother Family Medical History: No Reported History Medications and Allergies Home Medications Medication Instructions Recorded Confirmed Type Multivitamins, Thera [Multivitamin 1 tab PEG/G-TUBE DAILY 12/21/16 06/22/24 History (formulary)] Imbruvica 420 mg PEG/G-TUBE DAILY 04/06/17 06/22/24 History Apixaban [Eliquis] 2.5 mg PEG/G-TUBE Q2D 08/31/23 06/22/24 History Flecainide [Tambocor] 50 mg PEG/G-TUBE Q12HR 08/31/23 06/22/24 History busPIRone HCl [Buspar] 5 mg PEG/G-TUBE TID PRN 08/31/23 06/22/24 History Levothyroxine Sodium [Synthroid] 125 mcg PEG/G-TUBE DAILY 30 Days 09/03/23 06/22/24 Rx #30 tab Clotrimazole/Betameth Cream 1 applic TOPICAL DAILY 06/22/24 06/22/24 History [Lotrisone] Fluconazole [Diflucan] 150 mg PEG/G-TUBE SA 06/22/24 06/22/24 History Allergies Allergy/AdvReac Type Severity Reaction Status Date / Time amoxicillin Allergy Rash/Hives Verified 06/22/24 09:03 clavulanic acid Allergy Rash/Hives Verified 06/22/24 09:03 [From Augmentin] rituximab [From Rituxan] Allergy Anaphylaxis Verified 06/22/24 09:03 Physical Exam Vitals: Vital Signs Temp Pulse Resp BP Pulse Ox 06/22/24 09:07 78 18 98 06/22/24 08:25 97.6 F 78 18 113/71 97 06/22/24 07:39 97.6 F 95 18 105/74 95 06/22/24 06:00 97.7 F 58 L 18 111/55 97 06/22/24 01:00 85 18 119/82 96 06/22/24 00:45 84 18 124/84 94 L 06/21/24 22:40 97.7 F 53 L 17 102/65 93 L Intake and Output 06/21/24 06/22/24 06/22/24 22:59 06:59 14:59 Other: # Bowel Movements 2 Weight 71.214 kg - Constitutional General appearance: average body habitus, cooperative, no acute distress - EENT Eyes: anicteric sclerae, EOMI ENT: hearing grossly normal, normal oropharynx - Neck Neck: no lymphadenopathy - Respiratory Respiratory: bilateral: CTA - Cardiovascular Rhythm: regular Heart sounds: normal: S1, S2 Abnormal Heart Sounds: no systolic murmur, no diastolic murmur, no rub, no S3 Gallop, no S4 Gallop, no click, no other leg Peripheral Edema: bilateral: 1+ - Gastrointestinal PEG General gastrointestinal: no absent bowel sounds, no decreased bowel sounds, distended, no hepatomegaly, no hyperactive bowel sounds, normal bowel sounds, no organomegaly, no rigid, no scaphoid, soft, no splenomegaly, no tenderness, no umbilical hernia, no ventral hernia - Integumentary Integumentary: normal - Neurologic Neurologic: CNII-XII intact - Musculoskeletal Musculoskeletal: generalized weakness, strength equal bilaterally - Psychiatric Psychiatric: A&O x's 3, appropriate affect, intact judgment & insight RUE lymphedema-unknown cause Results CBC & Chem 7: 06/21/24 23:20 06/21/24 23:20 Labs: Abnormal Lab Results - Last 24 Hours (Table) 06/21/24 06/21/24 06/21/24 Range/Units 23:20 23:20 23:20 WBC 16.8 H (3.8-10.6) k/uL RBC 6.10 H (4.30-5.90) m/uL Neutrophils # 15.0 H (1.3-7.7) k/uL Lymphocytes # 0.8 L (1.0-4.8) k/uL Sodium 130 L (137-145) mmol/L Potassium 5.8 H (3.5-5.1) mmol/L Chloride 94 L (98-107) mmol/L BUN 37 H (9-20) mg/dL Glucose 155 H (74-99) mg/dL Magnesium 3.8 H (1.6-2.3) mg/dL Alkaline Phosphatase 140 H (38-126) U/L Amylase 398 H* (30-110) U/L TSH 7.490 H (0.465-4.680) mIU/L Ur Specific [place] (1.001-1.035) Urine Protein (Negative) Urine Ketones (Negative) Ur Leukocyte Esterase (Negative) Urine WBC (0-5) /hpf Urine Bacteria (None) /hpf Hyaline Casts (0-2) /lpf Urine Mucus (None) /hpf 06/22/24 Range/Units 06:17 WBC (3.8-10.6) k/uL RBC (4.30-5.90) m/uL Neutrophils # (1.3-7.7) k/uL Lymphocytes # (1.0-4.8) k/uL Sodium (137-145) mmol/L Potassium (3.5-5.1) mmol/L Chloride (98-107) mmol/L BUN (9-20) mg/dL Glucose (74-99) mg/dL Magnesium (1.6-2.3) mg/dL Alkaline Phosphatase (38-126) U/L Amylase (30-110) U/L TSH (0.465-4.680) mIU/L Ur Specific [place] >1.050 H (1.001-1.035) Urine Protein Trace H (Negative) Urine Ketones Trace H (Negative) Ur Leukocyte Esterase Trace H (Negative) Urine WBC 11 H (0-5) /hpf Urine Bacteria Rare H (None) /hpf Hyaline Casts 51 H (0-2) /lpf Urine Mucus Few H (None) /hpf CT scan - abdomen: report reviewed CT scan - pelvis: report reviewed Assessment and Plan (1) Hypogammaglobulinemia Current Visit: No Status: Chronic Priority: Low Code(s): D80.1 - NONFAMILIAL HYPOGAMMAGLOBULINEMIA SNOMED Code(s): 500518902 (2) CLL (chronic lymphocytic leukemia) Current Visit: No Status: Chronic Priority: Low Code(s): C91.10 - CHRONIC LYMPHOCYTIC LEUK OF B-CELL TYPE NOT ACHIEVE REMIS SNOMED Code(s): 46575436 Plan: CLL -Patient has been on treatment for CLL since 2017 with good tolerance and well-c ontrolled CLL. -Recommend holding Imbruvica during acute illness. -Patient's CLL and treatment with Imbruvica does not preclude him from having any surgeries or procedures. Hypogammaglobulinemia -Last Gammagard infusion was in March 2024. -Will check an IgG level.
[2024-06-23 12:27] LABS: Basophils % (A) 0 %; Eosinophils # (A) 0.1 k/uL (0-0.7); Eosinophils % (A) 1 %; HCT 45.7 % (39.0-53.0); HGB 14.2 gm/dL (13.0-17.5); Hypochromasia Slight; Lymphocytes # (A) 1.4 k/uL (1.0-4.8); Lymphocytes % (A) 16 %; MCH 27.8 pg (25.0-35.0); MCHC 31.2 g/dL (31.0-37.0); Monocytes # (A) 0.7 k/uL (0-1.0); Monocytes % (A) 8 %; Neutrophils # (A) 6.5 k/uL (1.3-7.7); Neutrophils % (A) 71 %; Platelet Count 148 k/uL (150-450); RBC 5.13 m/uL (4.30-5.90); RDW 15.5 % (11.5-15.5); WBC 9.1 k/uL (3.8-10.6)
[2024-06-23 12:37] LABS: ALT 16 U/L (4-49); AST 28 U/L (17-59); African American GFR (CKD) >90 (>60 ml/min/1.73 sqM); Albumin 3.3 g/dL (3.5-5.0); Albumin/Globulin Ratio 1.7; Alkaline Phosphatase 99 U/L (38-126); Anion Gap 9 mmol/L; Blood Urea Nitrogen 35 mg/dL (9-20); Calcium 8.6 mg/dL (8.4-10.2); Carbon Dioxide 22 mmol/L (22-30); Chloride 102 mmol/L (98-107); Globulin 1.9 g/dL; Glucose 91 mg/dL (74-99); Non-African American GFR(CKD) 83 (>60 ml/min/1.73 sqM); Potassium 4.7 mmol/L (3.5-5.1); Sodium 133 mmol/L (137-145); Total Bilirubin 0.8 mg/dL (0.2-1.3); Total Protein 5.2 g/dL (6.3-8.2)
[2024-06-23 13:05] LABS: Free Kappa Lt Chain Qnt, Serum 0.36 mg/dL (0.33-1.94); Free Lambda Lt Chain Qnt, Seru 0.27 mg/dL (0.57-2.63)
--- NOTE | 2024-06-23 13:40 | P.PN ---
Subjective Progress Note Date: 06/23/24 patient is a 83-year-old gentleman with past medical history significant for chronic lymphocytic leukemia, history of Fletcher's palsy, history of paroxysmal atrial fibrillation, history of dysphagia with feeding tube in place, hypothyroidism who presented the ER because abdominal pain. Patient stated that he was all right 3 days back when he started developing abdominal pain. Patient stated he was not having any bowel movements for the last 3 days. Patient is passing small amounts of gas. Patient also started having nausea and vomiting. Abdominal pain is located the lower quadrants and is radiating to his back, denies any aggravating or relieving factor associated abdominal pain. There is no complaint of urinary hesitancy urgency or incontinence. Because of this abdominal pain, patient presented to the ERInitial lab work done in the ER showed WB 16.8, hemoglobin 16.9, platelet count 215, sodium 130, potassium 5.8, BUN 37, creatinine 1.12, glucose 115, magnesium 3.8, amylase 398 lipase 3 TSH 7.4 UA done showed trace leukocyte Estrace, urine nitrate negative, urine WBC 11 EKG done in the ER showed heart rate of80 , no ST segment elevation or depression seen, no T-wave inversions seen. CT abdomen pelvis done showed possible subtle acute compression fracture of the L1 superior endplate without height loss. Markedly distended colon extending to the level of splenic flexure with relatively decompressed colon more distally appearance suggests colonic ileus versus, pseudoobstruction with conventional constipation differential diagnosis Patient admitted to internal medicine service 06/23. Patient seen and examined. States he feels much better. Hematology oncology on board, ordering immunoglobin transfusion. Patient currently tolerating tube feeding. REVIEW OF SYSTEMS: CONSTITUTIONAL: No fever, no malaise,. CARDIOVASCULAR: No chest pain, no palpitations, no syncope. PULMONARY: No shortness of breath, no cough, GASTROINTESTINAL: No diarrhea, no nausea, no vomiting, no abdominal pain. NEUROLOGICAL: No headaches, no weakness, PHYSICAL EXAMINATION: GENERAL: The patient is alert and oriented x3, not in any acute distress. Well developed, well nourished. HEENT: Pupils are round and equally reacting to light. EOMI. No scleral icterus. No conjunctival pallor. Normocephalic, atraumatic. No pharyngeal erythema. No thyromegaly. CARDIOVASCULAR: S1 and S2 present. No murmurs, rubs, or gallops. PULMONARY: Chest is clear to auscultation, no wheezing or crackles. ABDOMEN: Soft, nontender, nondistended, normoactive bowel sounds. No palpable organomegaly. PEG tube seen MUSCULOSKELETAL: No joint swelling or deformity. EXTREMITIES: No cyanosis, clubbing, or pedal edema. NEUROLOGICAL: Gross neurological examination did not reveal any focal deficits. SKIN: No rashes. Assessment and plan Abdominal pain Large bowel obstruction L1 compression fracture History of paroxysmal atrial fibrillation History of hypothyroidism Chronic lymphocytic leukemia History of Fletcher's palsy Monitor vital signs Monitor CBC Monitor CMP Continue tube feeding Continue antiemetics DC antibiotics Continue home meds Oncology following Orthopedic evaluate for L1 compression fracture, family and patient opting for conservative management, LSO brace Labs and medication were reviewed.. Continue same treatment. Continue with symptomatic treatment. Resume home medication. Monitor labs and vitals. DVT and GI prophylaxis. Further recommendations as per clinical course of the p atient Dictation was produced using H2020 dictation software. please excuse any grammatical, word or spelling errors. Objective - Vital Signs Vital signs: Vital Signs Temp 98.2 F 06/23/24 07:15 Pulse 75 06/23/24 07:50 Resp 17 06/23/24 07:50 BP 108/67 06/23/24 07:15 Pulse Ox 94 L 06/23/24 07:15 FiO2 Intake & Output 06/22/24 06/23/24 06/23/24 18:59 06:59 18:59 Weight 71.214 kg Other: Voiding Method Bedside Commode Bedside Commode # Bowel Movements 1 2 - Labs CBC & Chem 7: 06/23/24 11:59 06/23/24 11:59 Labs: Abnormal Lab Results - Last 24 Hours (Table) 06/22/24 06/22/24 06/23/24 Range/Units 13:06 13:06 11:59 Plt Count 148 L (150-450) k/uL Sodium (137-145) mmol/L BUN (9-20) mg/dL Total Protein (6.3-8.2) g/dL Albumin (3.5-5.0) g/dL IgG 319.0 L (700.0-1600.0) mg/dL Free Lambda LC, Quant 0.27 L (0.57-2.63) mg/dL 06/23/24 Range/Units 11:59 Plt Count (150-450) k/uL Sodium 133 L (137-145) mmol/L BUN 35 H (9-20) mg/dL Total Protein 5.2 L (6.3-8.2) g/dL Albumin 3.3 L (3.5-5.0) g/dL IgG (700.0-1600.0) mg/dL Free Lambda LC, Quant (0.57-2.63) mg/dL
[2024-06-23] MEDS: diphenhydrAMINE 50 MG/ML 1 ML VIAL IVP PRN (14:34)
[2024-06-23] MEDS: IMMUNE GLOBULIN (GAMMAGARD) 20 GM in EMPTY BAG 1 BAG IV ONE (14:59)
--- NOTE | 2024-06-23 16:16 | P.PN ---
Subjective Progress Note Date: 06/23/24 SURGICAL PROGRESS NOTE CHIEF COMPLAINT: Constipation HISTORY OF PRESENT ILLNESS: Patient is abdominal pain and constipation is improving. He has had 2 bowel movements today and multiple bowel movements y esterday. He reports his abdominal distention is better. Denies any abdominal pain. He reports he is hungry. Afebrile. WBC is 9.1 Hgb 14.2 platelets 148 PHYSICAL EXAM: VITAL SIGNS: Reviewed. GENERAL: Well-developed in no acute distress. ABDOMEN: Soft. Nondistended. Nontender. NEUROLOGIC: Alert and oriented. Cranial nerves II through XII grossly intact. ASSESSMENT: 1. Constipation 2. Ileus 3. History of chronic lymphocytic leukemia PLAN: -Okay to resume tube feedings. Okay for patient to have tube feedings brought for home -Recommend continuing a bowel regimen after discharge Physician Field Research Assistant note has been reviewed by physician. Signing provider agrees with the documented findings, assessment, and plan of care. Attestation Patient seen and examined at bedside. Presented with chief complaint of abdominal pain and constipation. This appears to be resolving. He has had multiple bowel movements after starting bowel regimen. He states his abdominal pain has resolved. He is tolerating diet. No plan for acute surgical intervention. Recommended bowel regimen during his admission and as an outpatient. Maryam Archibald, Objective - Vital Signs Vital signs: Vital Signs Temp 97.5 F L 06/23/24 13:45 Pulse 78 06/23/24 13:45 Resp 16 06/23/24 13:45 BP 123/71 06/23/24 13:45 Pulse Ox 98 06/23/24 13:45 FiO2 Intake & Output 06/22/24 06/23/24 06/23/24 18:59 06:59 18:59 Intake Total 57.75 Balance 57.75 Weight 71.214 kg Intake: Intake, IV Titration 57.75 Amount Immune Globulin ( 57.75 Gammagard) 20 gm In Empty Bag 1 bag @ Per Protocol IV .Q0M ONE Rx#: [id number] Other: Voiding Method Bedside Commode Bedside Commode # Bowel Movements 1 2 - Labs CBC & Chem 7: 06/23/24 11:59 06/23/24 11:59 Labs: Abnormal Lab Results - Last 24 Hours (Table) 06/22/24 06/22/24 06/23/24 Range/Units 13:06 13:06 11:59 Plt Count 148 L (150-450) k/uL Sodium (137-145) mmol/L BUN (9-20) mg/dL Total Protein (6.3-8.2) g/dL Albumin (3.5-5.0) g/dL IgG 319.0 L (700.0-1600.0) mg/dL Free Lambda LC, Quant 0.27 L (0.57-2.63) mg/dL 06/23/24 Range/Units 11:59 Plt Count (150-450) k/uL Sodium 133 L (137-145) mmol/L BUN 35 H (9-20) mg/dL Total Protein 5.2 L (6.3-8.2) g/dL Albumin 3.3 L (3.5-5.0) g/dL IgG (700.0-1600.0) mg/dL Free Lambda LC, Quant (0.57-2.63) mg/dL
--- NOTE | 2024-06-23 16:36 | P.PN ---
Subjective Progress Note Date: 06/23/24 Principal diagnosis: Ileus. CL, hypogammoglobulinemia In f/u today pt is having BMs, denies abd craps, rectal pain, no black or bloody stool. He states he is feeling better overall. Objective - Vital Signs Vital signs: Vital Signs Temp 97.5 F L 06/23/24 13:45 Pulse 78 06/23/24 13:45 Resp 16 06/23/24 13:45 BP 123/71 06/23/24 13:45 Pulse Ox 98 06/23/24 13:45 FiO2 Intake & Output 06/22/24 06/23/24 06/23/24 18:59 06:59 18:59 Intake Total 57.75 Balance 57.75 Weight 71.214 kg Intake: Intake, IV Titration 57.75 Amount Immune Globulin ( 57.75 Gammagard) 20 gm In Empty Bag 1 bag @ Per Protocol IV .Q0M ONE Rx#: [id number] Other: Voiding Method Bedside Commode Bedside Commode # Bowel Movements 1 2 - Constitutional General appearance: Present: average body habitus, cooperative, no acute distress - EENT Eyes: Present: anicteric sclerae, EOMI ENT: Present: hearing grossly normal - Respiratory Details: resp unlabored at rest - Psychiatric Psychiatric: Present: A&O x's 3, appropriate affect, intact judgment & insight - Labs CBC & Chem 7: 06/23/24 11:59 06/23/24 11:59 Labs: Abnormal Lab Results - Last 24 Hours (Table) 06/22/24 06/22/24 06/23/24 Range/Units 13:06 13:06 11:59 Plt Count 148 L (150-450) k/uL Sodium (137-145) mmol/L BUN (9-20) mg/dL Total Protein (6.3-8.2) g/dL Albumin (3.5-5.0) g/dL IgG 319.0 L (700.0-1600.0) mg/dL Free Lambda LC, Quant 0.27 L (0.57-2.63) mg/dL 06/23/24 Range/Units 11:59 Plt Count (150-450) k/uL Sodium 133 L (137-145) mmol/L BUN 35 H (9-20) mg/dL Total Protein 5.2 L (6.3-8.2) g/dL Albumin 3.3 L (3.5-5.0) g/dL IgG (700.0-1600.0) mg/dL Free Lambda LC, Quant (0.57-2.63) mg/dL Assessment and Plan (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 -Recommend holding Imbruvica during acute illness. -Patient's CLL and treatment with Imbruvica does not preclude him from having any surgeries or procedures. Hypogammaglobulinemia -Last Gammagard infusion was in March 2024. -IgG level 319, discussed case with PharmD, IVIG ordered.
[2024-06-23] MEDS: ACETAMINOPHEN TAB 500 MG TAB PO STA (18:57)
[2024-06-23] MEDS: diphenhydrAMINE 50 MG/ML 1 ML VIAL IVP STA (18:58)
[2024-06-23] MEDS: methylPREDNISolone SOD SUCCI 125 MG/2 ML VIAL IV STA (18:58)
[2024-06-23] MEDS: FAMOTIDINE 20 MG/2 ML VIAL IV STA (19:13)
[2024-06-23] MEDS: ACETAMINOPHEN TAB 325 MG TAB PO PRN (21:28)
[2024-06-24 08:36] LABS: Protein, Total 5.6 g/dL (6.2-8.2)
[2024-06-24] MEDS: IMMUNE GLOBULIN (GAMMAGARD) 20 GM in EMPTY BAG 1 BAG IV ONE ×2 (09:12→15:50)
[2024-06-24 10:23] LABS: Albumin 3.46 g/dL (3.80-4.90); Gamma Globulin 0.32 g/dL (0.70-1.50)
[2024-06-24] MEDS ORDERED: busPIRone HCl 5 MG TAB PEG/G-TUBE PRN (10:31)
[2024-06-24] MEDS ORDERED: PANTOPRAZOLE 40 MG TABLET PO SCH (10:45)
[2024-06-24] MEDS: APIXABAN 2.5 MG TABLET PEG/G-TUBE SCH (11:40)
[2024-06-24] MEDS: LEVOTHYROXINE 125 MCG TAB PEG/G-TUBE SCH (11:40)
[2024-06-24] MEDS: MULTIVITAMINS, THERA 1 EACH TAB PEG/G-TUBE SCH (11:40)
[2024-06-24] MEDS: FLECAINIDE 50 MG TAB PEG/G-TUBE SCH (12:49)
[2024-06-24 13:08] VITALS: BMI 27.5
[2024-06-24] MEDS: methylPREDNISolone SOD SUCCI 125 MG/2 ML VIAL IV STA (15:22)
--- NOTE | 2024-06-24 15:23 | P.PN ---
Subjective Progress Note Date: 06/24/24 Patient received IVIG yesterday, had reported possible rxn, began to have rigors and a temperature of 100.1. Pt given solumedrol, benadryl and pepcid and infusion was stopped. At todays visit pt reports feeling well, no reported complaints, he is anxious to go home Objective - Vital Signs Vital signs: Vital Signs Temp 97.8 F 06/24/24 07:15 Pulse 91 06/24/24 11:34 Resp 16 06/24/24 07:15 BP 81/55 06/24/24 11:34 Pulse Ox 95 06/24/24 11:34 FiO2 Intake & Output 06/23/24 06/24/24 06/24/24 18:59 06:59 18:59 Intake Total 162.75 Output Total 250 400 Balance 162.75 -250 -400 Weight 72.4 kg 87 kg Intake: Intake, IV Titration 162.75 Amount Immune Globulin ( 162.75 Gammagard) 20 gm In Empty Bag 1 bag @ Per Protocol IV .Q0M ONE Rx#: [id number] Output: Urine 250 400 Other: Voiding Method Bedside Commode Urinal Urinal # Bowel Movements 2 - Constitutional General appearance: Present: average body habitus, no acute distress - EENT Eyes: Present: anicteric sclerae, EOMI ENT: Present: hearing grossly normal - Respiratory Details: breathing is even and unlabored - Cardiovascular Details: skin warm and dry - Gastrointestinal General gastrointestinal: Present: soft. Absent: tenderness - Integumentary Integumentary: Absent: cyanotic, jaundiced - Psychiatric Psychiatric: Present: A&O x's 3 - Labs CBC & Chem 7: 06/23/24 11:59 06/23/24 11:59 Labs: Abnormal Lab Results - Last 24 Hours (Table) 06/22/24 Range/Units 13:06 Total Protein (PEP) 5.6 L (6.2-8.2) g/dL Albumin (PEP) 3.46 L (3.80-4.90) g/dL [id number] 0.45 H (0.10-0.40) g/dL Gamma Globulins 0.32 L (0.70-1.50) g/dL Free Lambda LC, Quant 0.27 L (0.57-2.63) mg/dL Assessment and Plan (1) Abdominal pain Current Visit: Yes Status: Acute Code(s): R10.9 - UNSPECIFIED ABDOMINAL PAIN SNOMED Code(s): 07024548 (2) Ileus Current Visit: Yes Status: Acute Code(s): K56.7 - ILEUS, UNSPECIFIED SNOMED Code(s): 851007553 (3) Hypogammaglobulinemia Current Visit: Yes Status: Acute Priority: Medium Code(s): D80.1 - NONFAMILIAL HYPOGAMMAGLOBULINEMIA SNOMED Code(s): 304398305 (4) CLL (chronic lymphocytic leukemia) Current Visit: No Status: Chronic Priority: Medium Code(s): C91.10 - CHRONIC LYMPHOCYTIC LEUK OF B-CELL TYPE NOT ACHIEVE REMIS SNOMED Code(s): 53274537 Plan: Ileus -Pt doing well with conservative mgmt-Surgery following CLL -Patient has been on treatment for CLL since 2017 with good tolerance and well- controlled CLL. -Recommend holding Imbruvica during acute illness. -Patient's CLL and treatment with Imbruvica does not preclude him from having any surgeries or procedures. Hypogammaglobulinemia -Last Gammagard infusion was in March 2024. -IgG level 319, discussed case with PharmD, IVIG ordered. Patient received IVIG yesterday, had reported possible rxn, began to have rigors and a temperature of 100.1. Pt given solumedrol, benadryl and pepcid and infusion was stopped with resolution of symptoms. Pt reports he thinks infusion was being given too quickly? Pt has received multiple IVIG infusions prior, with no adverse effects except for 20 years ago. Will give second dose IVIG today, with benadryl and solumedrol pre-meds. Instructed nurse to ensure transfusion is given slowly at half the max rate per protocols, and to closely monitor pt for side effects/rxn
[2024-06-24] MEDS: diphenhydrAMINE 50 MG/ML 1 ML VIAL IVP STA (15:24)
--- NOTE | 2024-06-24 15:56 | P.PN ---
Subjective Progress Note Date: 06/24/24 SURGICAL PROGRESS NOTE CHIEF COMPLAINT: Constipation HISTORY OF PRESENT ILLNESS: Patient reports having multiple bowel movements yesterday. He reports not taking the MiraLAX today. He denies any abdominal pain. He is tolerating his tube feeds. He supposedly had an reaction to his IVIG infusion yesterday. Oncology is following him and are trying another IVIG infusion premedicated. Afebrile. PHYSICAL EXAM: VITAL SIGNS: Reviewed. GENERAL: Well-developed in no acute distress. ABDOMEN: Soft. Nondistended. Nontender. PEG tube site clean dry and intact NEUROLOGIC: Alert and oriented. Cranial nerves II through XII grossly intact. ASSESSMENT: 1. Constipation 2. Ileus 3. History of chronic lymphocytic leukemia PLAN: -Continue tube feeds -Continue MiraLAX -Recommend continuing a bowel regimen after discharge -No surgical intervention planned Physician Machines Technician note has been reviewed by physician. Signing provider agrees with the documented findings, assessment, and plan of care. Objective - Vital Signs Vital signs: Vital Signs Temp 97.8 F 06/24/24 12:55 Pulse 76 06/24/24 15:42 Resp 16 06/24/24 12:55 BP 98/61 06/24/24 15:42 Pulse Ox 97 06/24/24 15:42 FiO2 Intake & Output 06/23/24 06/24/24 06/24/24 18:59 06:59 18:59 Intake Total 162.75 Output Total 250 400 Balance 162.75 -250 -400 Weight 72.4 kg 87 kg 71.9 kg Intake: Intake, IV Titration 162.75 Amount Immune Globulin ( 162.75 Gammagard) 20 gm In Empty Bag 1 bag @ Per Protocol IV .Q0M ONE Rx#: [id number] Output: Urine 250 400 Other: Voiding Method Bedside Commode Urinal Urinal # Bowel Movements 2 - Labs CBC & Chem 7: 06/23/24 11:59 06/23/24 11:59 Labs: Abnormal Lab Results - Last 24 Hours (Table) 06/22/24 Range/Units 13:06 Total Protein (PEP) 5.6 L (6.2-8.2) g/dL Albumin (PEP) 3.46 L (3.80-4.90) g/dL [id number] 0.45 H (0.10-0.40) g/dL Gamma Globulins 0.32 L (0.70-1.50) g/dL
[2024-06-25 02:47] VITALS: PULSE 75
[2024-06-25 07:34] VITALS: BP 97/64; RESP 18; TEMP 97.9
[2024-06-25] MEDS: CLOTRIMAZOLE/BETAMETH 1-0.05% CREAM 45 GM TUBE TOPICAL SCH (09:41)
[2024-06-25] MEDS: FLUCONAZOLE 150 MG TAB PEG/G-TUBE SCH (09:42)
== END 2024-06-25 13:15 | disposition home or self-care (01) | DRG 389 ==
LOC: EC 22:38 → 4SSUR 06-22 00:57 → OBSVTOIN 06-22 13:11 → 4SSUR 06-22 15:07
PROVIDERS: ADMIT Hospitalist; ATTEND Hospitalist
DX: K56.7 Ileus, unspecified (principal); C91.10 Chronic lymphocytic leukemia of B-cell type not having achieved remission; M48.56XA Collapsed vertebra, not elsewhere classified, lumbar region, initial encounter for fracture; D84.9 Immunodeficiency, unspecified; D80.1 Nonfamilial hypogammaglobulinemia; R74.8 Abnormal levels of other serum enzymes; J44.89 Other specified chronic obstructive pulmonary disease; I48.0 Paroxysmal atrial fibrillation; E03.9 Hypothyroidism, unspecified; R13.10 Dysphagia, unspecified; M47.816 Spondylosis without myelopathy or radiculopathy, lumbar region; G51.0 Bell's palsy; M51.369 Other intervertebral disc degeneration, lumbar region without mention of lumbar back pain or lower extremity pain; T50.Z15A Adverse effect of immunoglobulin, initial encounter; Z79.01 Long term (current) use of anticoagulants; Z88.0 Allergy status to penicillin; Z79.899 Other long term (current) drug therapy; Z88.8 Allergy status to other drugs, medicaments and biological substances; Z93.1 Gastrostomy status
CPT/HCPCS: 36415; 74177; 80053; 81001; 82150; 82784; 83605; 83690; 83735; 83883; 84165; 84439; 84443; 85025; 86334; 93005; 96365; 96366; 96367; 96375; 99285

== ENCOUNTER 2024-07-31 08:19 | Emergency (ER) | payer MEDICARE ==
[2024-07-31 08:28] VITALS: TEMP 97.9
--- NOTE | 2024-07-31 08:40 | ED ---
General Adult HPI - General Chief complaint: GI Bleed Stated complaint: rectal bleeding Time Seen by Provider: 07/31/24 08:26 Source: patient Mode of arrival: ambulatory Limitations: no limitations - History of Present Illness Initial comments: Dictation was produced using [employer] dictation software. please excuse any grammatical, word or spelling errors. Chief Complaint: 83-year-old male presents emergency department with bright red blood per rectum History of Present Illness: Patient is an 83-year-old male with history of leukemia, feeding tube, Eliquis use presents to the ER for 1 day of bright red blood per rectum. Patient denies any rectal pain denies any abdominal pain. Denies any fever or constitutional symptoms. No history of diverticulitis. History obtained from at the bedside The ROS documented in this emergency department record has been reviewed and confirmed by me. Those systems with pertinent positive or negative responses have been documented in the HPI. All other systems are other negative and/or noncontributory. - Related Data Home Medications Medication Instructions Recorded Confirmed Multivitamins, Thera [Multivitamin 1 tab PEG/G-TUBE DAILY 12/21/16 06/22/24 (formulary)] Imbruvica 420 mg PEG/G-TUBE DAILY 04/06/17 06/22/24 Apixaban [Eliquis] 2.5 mg PEG/G-TUBE Q2D 08/31/23 06/22/24 Flecainide [Tambocor] 50 mg PEG/G-TUBE Q12HR 08/31/23 06/22/24 busPIRone HCl [Buspar] 5 mg PEG/G-TUBE TID PRN 08/31/23 06/22/24 Clotrimazole/Betameth Cream 1 applic TOPICAL DAILY 06/22/24 06/22/24 [Lotrisone] Fluconazole [Diflucan] 150 mg PEG/G-TUBE SA 06/22/24 06/22/24 Previous Rx's Medication Instructions Recorded Levothyroxine Sodium [Synthroid] 125 mcg PEG/G-TUBE DAILY 30 Days 09/03/23 #30 tab polyethylene glycoL 3350 [Miralax] 17 gm PEG/G-TUBE DAILY 30 Days #30 06/25/24 packet Allergies Allergy/AdvReac Type Severity Reaction Status Date / Time amoxicillin Allergy Rash/Hives Verified 06/22/24 09:03 clavulanic acid Allergy Rash/Hives Verified 06/22/24 09:03 [From Augmentin] rituximab [From Rituxan] Allergy Anaphylaxis Verified 06/22/24 09:03 Review of Systems ROS Statement: Those systems with pertinent positive or pertinent negative responses have been documented in the HPI. ROS Other: All systems not noted in ROS Statement are negative. Past Medical History Past Medical History: Atrial Fibrillation, Cancer, COPD, Neurologic Disorder, Osteoarthritis (OA), Pneumonia, Prostate Disorder, Thyroid Disorder Additional Past Medical History / Comment(s): Pt recently admitted to [facility] on 02/17/17 with L lower lobe pneumonia, small B cell lymphoma. 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 Past Anesthesia/Blood Transfusion Reactions: Blood Transfusion Reaction Additional Past Anesthesia/Blood Transfusion Reaction / Comment(s): GAVE BENADRYL AND RAN SLOW. Has had multiple transfusuions and has a reaction every time Past Psychological History: No Psychological Hx Reported Smoking Status: Unknown if ever smoked Past Alcohol Use History: Unable to Obtain Past Drug Use History: None Reported - Past Family History Father Family Medical History: Dementia Mother Family Medical History: No Reported History General Exam - General Exam Comments Initial Comments: PHYSICAL EXAM: General Impression: Alert and oriented x3, not in acute distress HEENT: Normocephalic atraumatic, extra-ocular movements intact, pupils equal and reactive to light bilaterally, mucous membranes moist. Cardiovascular: Heart regular rate and rhythm Chest: Able to complete full sentences, no retractions, no tachypnea Abdomen: abdomen soft, non-tender, non-distended, no organomegaly Musculoskeletal: Pulses present and equal in all extremities, no peripheral edema Motor: no focal deficits noted Neurological: CN II-XII grossly intact, no focal motor or sensory deficits noted Skin: Intact with no visualized rashes Psych: Normal affect and mood Rectal exam: No gross blood Limitations: no limitations Course Vital Signs 07/31/24 07/31/24 08:26 09:53 Temperature 97.9 F Pulse Rate 79 73 Respiratory 20 16 Rate Blood Pressure 130/77 118/76 O2 Sat by Pulse 96 98 Oximetry EKG Findings - EKG Comments: EKG Findings:: My EKG interpretation: Ventricular rate 75, sinus rhythm,. 180, QRS 112, QTc 415. No FL prolongation, no QTC prolongation, no ST or T-wave changes noted. Overall, this EKG is unremarkable Medical Decision Making - Medical Decision Making Was pt. sent in by a medical professional or institution (, PA, DRY BOX OPERATOR, urgent care, hospital, or fdc...) When possible be specific @ -No Did you speak to anyone other than the patient for history (EMS, parent, family, police, friend...)? What history was obtained from this source @ -No Did you review nursing and triage notes (agree or disagree)? Why? @ -I reviewed and agree with nursing and triage notes Were old charts reviewed (outside hosp., previous admission, EMS record, old EKG, old radiological studies, urgent care reports/EKG's, fdc records)? Report findings @ -No old charts were reviewed Differential Diagnosis (chest pain, altered mental status, abdominal pain women, abdominal pain men, vaginal bleeding, musculoskeletal, weakness, fever, dyspnea, syncope, headache, dizziness, GI bleed, back pain, seizure, CVA, palpatations, mental health)? @ -Differential GI Bleed: Esophageal varices, aortoenteric fistula, Celina-Melendez, gastritis, peptic ulcer disease, diverticulosis, inflammatory bowel disease, hemorrhoids, fissure, colitis, malignancy, Meckel's diverticulum, this is not meant to be an all- inclusive list. EKG interpreted by me (3pts min.). @ -See above X-rays interpreted by me (1pt min.). @ -None done CT interpreted by me (1pt min.). @ -None done U/S interpreted by me (1pt. min.). @ -None done What testing was considered but not performed or refused? (CT, X-rays, U/S, labs)? Why? @ -None What meds were considered but not given or refused? Why? @ -None Was smoking cessation discussed for >3mins.? @ -No Were there social determinants of health that impacted care today? How? (Homelessness, low income, unemployed, alcoholism, drug addiction, transportation, low edu. Level, literacy, decrease access to med. care, fdc, rehab)? @ -No Was there de-escalation of care discussed even if they declined (Discuss DNR or withdrawal of care, Hospice)? DNR status @ -No What co-morbidities impacted this encounter? (DM, HTN, Smoking, COPD, CAD, C ancer, CVA, ARF, Chemo, Hep., AIDS, mental health diagnosis, sleep apnea, morbid obesity)? @ -Leukemia, anticoagulation use Was patient admitted / discharged? Hospital course, mention meds given and route, prescriptions, significant lab abnormalities, going to OR and other pertinent info. @ -83-year-old male with bright red blood per rectum. He had was described as a short-lived episode this morning. Vital signs upon arrival are within acceptable limits. Physical examination is benign. Patient has no abdominal pain. Laboratory evaluation is unremarkable. Hemoglobin stable. Patient ree valuated at bedside at 10:40 AM with no continued rectal bleeding. Patient was offered transfer to [facility] for GI specialist. He did feel comfortable going home with strict return precautions. Patient given outpatient follow-up with GI specialist Did you discuss the management of the patient with other professionals (professionals i.e. , PA, DRY BOX OPERATOR, lab, RT, psych nurse, social work case manager, workers compensation consultant, teacher, electronic warfare officer, case folder)? Give summary @ -No Was critical care preformed (if so, how long)? @ -No Undiagnosed new problem with uncertain prognosis? @ -No Drug Therapy requiring intensive monitoring for toxicity (Heparin, Nitro, Insulin, Cardizem)? @ -No Were any procedures done? @ -No Diagnosis/symptom? Acute, or Chronic, or Acute on Chronic? Uncomplicated (without systemic symptoms) or Complicated (systemic symptoms)? @ -Bright red blood per rectum Side effects of treatment? @ -No Exacerbation, Progression, or Severe Exacerbation? @ -No Poses a threat to life or bodily function? How? (Chest pain, [place], [place], pneumonia, PE, COPD, DKA, ARF, appy, cholecystitis, CVA, Diverticulitis, Homicidal, Suicidal, threat to staff... and all critical care pts) @ -yes - Lab Data Result diagrams: 07/31/24 08:50 07/31/24 09:15 Lab Results 07/31/24 07/31/24 07/31/24 Range/Units 08:50 08:50 09:15 WBC 4.7 (3.8-10.6) k/uL RBC 5.34 (4.30-5.90) m/uL Hgb 14.6 (13.0-17.5) gm/dL Hct 46.2 (39.0-53.0) % MCV 86.5 (80.0-100.0) fL MCH 27.2 (25.0-35.0) pg MCHC 31.5 (31.0-37.0) g/dL RDW 14.6 (11.5-15.5) % Plt Count 150 (150-450) k/uL MPV 9.4 Neutrophils % (Manual) 55 % Band Neuts % (Manual) 3 % Lymphocytes % (Manual) 27 % Monocytes % (Manual) 15 % Neutrophils # (Manual) 2.70 (1.3-7.7) k/uL Lymphocytes # (Manual) 1.27 (1.0-4.8) k/uL Monocytes # (Manual) 0.71 (0-1.0) k/uL Nucleated RBCs 0 (0-0) /100 WBC Manual Slide Review Performed Hypochromasia Slight PT (10.0-12.5) sec INR (<1.2) APTT (22.0-30.0) sec Sodium 132 L (137-145) mmol/L Potassium 4.4 (3.5-5.1) mmol/L Chloride 97 L (98-107) mmol/L Carbon Dioxide 32 H (22-30) mmol/L Anion Gap 3 mmol/L BUN 20 (9-20) mg/dL Creatinine 0.79 (0.66-1.25) mg/dL Est GFR (CKD-EPI)AfAm >90 (>60 ml/min/1.73 sqM) Est GFR (CKD-EPI)NonAf 84 (>60 ml/min/1.73 sqM) Glucose 86 (74-99) mg/dL Calcium 8.3 L (8.4-10.2) mg/dL Stool Occult Blood Negative (Negative) Blood Type Blood Type Recheck Bld Type Recheck Status Antibody Screen Spec Expiration Date 07/31/24 07/31/24 Range/Units 09:15 09:15 WBC (3.8-10.6) k/uL RBC (4.30-5.90) m/uL Hgb (13.0-17.5) gm/dL Hct (39.0-53.0) % MCV (80.0-100.0) fL MCH (25.0-35.0) pg MCHC (31.0-37.0) g/dL RDW (11.5-15.5) % Plt Count (150-450) k/uL MPV Neutrophils % (Manual) % Band Neuts % (Manual) % Lymphocytes % (Manual) % Monocytes % (Manual) % Neutrophils # (Manual) (1.3-7.7) k/uL Lymphocytes # (Manual) (1.0-4.8) k/uL Monocytes # (Manual) (0-1.0) k/uL Nucleated RBCs (0-0) /100 WBC Manual Slide Review Hypochromasia PT 10.7 (10.0-12.5) sec INR 1.0 (<1.2) APTT 25.1 (22.0-30.0) sec Sodium (137-145) mmol/L Potassium (3.5-5.1) mmol/L Chloride (98-107) mmol/L Carbon Dioxide (22-30) mmol/L Anion Gap mmol/L BUN (9-20) mg/dL Creatinine (0.66-1.25) mg/dL Est GFR (CKD-EPI)AfAm (>60 ml/min/1.73 sqM) Est GFR (CKD-EPI)NonAf (>60 ml/min/1.73 sqM) Glucose (74-99) mg/dL Calcium (8.4-10.2) mg/dL Stool Occult Blood (Negative) Blood Type O Positive Blood Type Recheck O Pos Bld Type Recheck Status No Antibody Screen NEGATIVE Spec Expiration Date 08/03/2024 - 2314 Disposition Clinical Impression: Bright red blood per rectum Disposition: HOME SELF-CARE Condition: Fair Instructions (If sedation given, give patient instructions): Gastrointestinal Bleeding (ED) Is patient prescribed a controlled substance at d/c from ED?: No Referrals: Tami Castanon NPC [REFERRING] - 1-2 days Mariana Stevens MD [STAFF PHYSICIAN] - 1-2 days Time of Disposition: 10:39
[2024-07-31 09:19] LABS: HCT 46.2 % (39.0-53.0); HGB 14.6 gm/dL (13.0-17.5); Hypochromasia Slight; MCH 27.2 pg (25.0-35.0); MCHC 31.5 g/dL (31.0-37.0); MCV 86.5 fL (80.0-100.0); Mean Platelet Volume 9.4; Platelet Count 150 k/uL (150-450); RBC 5.34 m/uL (4.30-5.90); RDW 14.6 % (11.5-15.5); WBC 4.7 k/uL (3.8-10.6)
[2024-07-31 09:36] LABS: African American GFR (CKD) >90 (>60 ml/min/1.73 sqM); Anion Gap 3 mmol/L; Blood Urea Nitrogen 20 mg/dL (9-20); Calcium 8.3 mg/dL (8.4-10.2); Carbon Dioxide 32 mmol/L (22-30); Chloride 97 mmol/L (98-107); Glucose 86 mg/dL (74-99); Non-African American GFR(CKD) 84 (>60 ml/min/1.73 sqM); Potassium 4.4 mmol/L (3.5-5.1); Sodium 132 mmol/L (137-145)
[2024-07-31 09:39] LABS: Partial Thromboplastin Time 25.1 sec (22.0-30.0); Prothrombin Time 10.7 sec (10.0-12.5)
[2024-07-31 09:44] LABS: Band Neutrophils % 3 %; Lymphocytes # (M) 1.27 k/uL (1.0-4.8); Monocytes # (M) 0.71 k/uL (0-1.0); Neutrophils % (M) 55 %; Nucleated Red Blood Cells 0 /100 WBC (0-0); Total Cells Counted 100
[2024-07-31 09:54] VITALS: BP 118/76
[2024-07-31 11:02] VITALS: PULSE 75; RESP 20
== END 2024-07-31 11:02 | disposition home or self-care (01) ==
LOC: EC 08:19
DX: K62.5 Hemorrhage of anus and rectum (principal); C91.10 Chronic lymphocytic leukemia of B-cell type not having achieved remission; Z88.0 Allergy status to penicillin; Z88.8 Allergy status to other drugs, medicaments and biological substances
CPT/HCPCS: 36415; 80048; 82272; 85025; 85610; 85730; 86850; 86900; 86901; 93005; 99284

== ENCOUNTER 2024-09-14 08:12 | Day surgery (SDC) | payer MEDICARE ==
[2024-09-13 12:26] VITALS: BMI 22.2
[~2024-09-14 08:12] MED LIST: LACTATED RINGERS 1,000 ML IV SCH
[2024-09-14] MEDS: IV FLUID CONTINUATION 1,000 ML IV ONE (08:32)
[2024-09-14 08:44] VITALS: RESP 16; TEMP 97.8
[2024-09-14] MEDS ORDERED: PROPOFOL 10 MG/ML 20 ML VIAL IV ONE (09:05)
--- NOTE | 2024-09-14 09:30 | P.PCN ---
Date of Procedure: 09/14/24 Procedure(s) Performed: BRIEF HISTORY: Patient is a 83-year-old pleasant white male scheduled for an elective colonoscopy as a part of evaluation of intermittent rectal bleeding for the last 6 weeks duration. This 2-3 soft bowel movements daily. History of A- fib on Eliquis which is currently on hold for the last 2 days. PROCEDURE PERFORMED: Colonoscopy with biopsy. PREOPERATIVE DIAGNOSIS: Rectal bleeding for the last 3 weeks duration. IV sedation per Anesthesia. PROCEDURE: After informed consent was obtained, the patient, was brought into the endoscopy unit. IV sedation was administered by Anesthesia under continuous monitoring. Digital rectal examination was normal. Initially the Olympus CF-160 flexible video colonoscope was then inserted in the rectum, gradually advanced into the cecum without any difficulty. Careful examination was performed as the scope was gradually being withdrawn. Ileocecal valve and the appendiceal orifice were visualized and appeared normal. Prep was excellent. Mucosa of the cecum, ascending colon appeared normal. Mucosa of the, transverse colon, descending colon, sigmoid colon, and rectum had patchy areas of erythema with friability and exudates more predominant in the left colon and multiple biopsies were done to evaluate for inflammatory bowel disease.. Retroflexion was performed in the rectum and no lesions were seen. The patient tolerated the procedure well. IMPRESSION: Patchy areas of erythema with friability, erosions and exudates involving the transverse colon, descending colon sigmoid colon and rectum consistent with mild colitis status post multiple biopsies Cecum and right colon appeared normal Katter sigmoid diverticulosis RECOMMENDATIONS: Findings of this examination were discussed with the patient as well as his family. He was advised to follow with the biopsy results. He will be seen in the office in 2 weeks. Resume Eliquis today.
[2024-09-14 09:49] VITALS: BP 118/70; PULSE 72
== END 2024-09-14 10:28 | disposition home or self-care (01) ==
LOC: ORWHC2ENDO 08:12
PROVIDERS: ATTEND Internal Medicine Gastroenterology
DX: K62.5 Hemorrhage of anus and rectum (principal); K52.9 Noninfective gastroenteritis and colitis, unspecified; K57.30 Diverticulosis of large intestine without perforation or abscess without bleeding; I48.91 Unspecified atrial fibrillation; Z79.01 Long term (current) use of anticoagulants
CPT/HCPCS: 45380; J2704; 88305

== ENCOUNTER → 2024-10-24 | Outpatient (CLI) | payer MEDICARE ==
[2024-10-24 16:52] LABS: ALT 15 U/L (10-49); AST 21 U/L (14-35); Albumin 3.5 g/dL (3.8-4.9); Albumin/Globulin Ratio 2.69 Ratio (1.60-3.17); Alkaline Phosphatase 92 U/L (41-126); Blood Urea Nitrogen 20.6 mg/dL (9.0-27.0); Calcium 8.5 mg/dL (8.7-10.3); Carbon Dioxide 28.5 mmol/L (21.6-31.8); Chloride 94 mmol/L (96-109); Globulin 1.3 g/dL (1.6-3.3); Glucose 92 mg/dL (70-110); Potassium 5.6 mmol/L (3.5-5.5); Sodium 130 mmol/L (135-145); Total Bilirubin 0.3 mg/dL (0.3-1.2); Total Protein 4.8 g/dL (6.2-8.2)
[2024-10-24 16:55] LABS: HCT 39.9 % (39.6-50.0); HGB 12.1 g/dL (13.0-17.0); MCH 25.5 pg (27.0-32.0); MCHC 30.3 g/dL (32.0-37.0); MCV 84.2 FL (80.0-97.0); Mean Platelet Volume 10.5 FL (9.5-12.2); NRBC Per 100 WBC 0 X 10*3/uL (0.00-0.01); Platelet Count 208 X 10*3/uL (140-440); RBC 4.74 X 10*6/uL (4.40-5.60); RDW 14.6 % (11.5-14.5); WBC 6.24 X 10*3/uL (4.50-10.00)
[2024-10-24 16:56] LABS: Basophils # (A) 0.04 X 10*3/uL (0.00-0.10); Basophils % (A) 0.6 %; Eosinophils # (A) 0.04 X 10*3/uL (0.04-0.35); Eosinophils % (A) 0.6 %; Lymphocytes # (A) 2.48 X 10*3/uL (0.90-5.00); Lymphocytes % (A) 39.7 %; Monocytes # (A) 1.41 X 10*3/uL (0.20-1.00); Monocytes % (A) 22.6 %; Neutrophils # (A) 2.25 X 10*3/uL (1.80-7.70); Neutrophils % (A) 36.2 %
[2024-10-24 19:51] LABS: Erythrocyte Sedimentation Rate 9 mm/Hr (0-20)
[2024-10-25 07:13] LABS: Cryptosporidium Antigen Negative (Negative)
== END | disposition home or self-care (01) ==
LOC: LABWHC1 11:51
PROVIDERS: ATTEND Nurse Practitioner Family
DX: K52.9 Noninfective gastroenteritis and colitis, unspecified (principal)
CPT/HCPCS: 36415; 80053; 83630; 83993; 85025; 85652; 86140; 87045; 87046; 87324; 87328; 87329

== ENCOUNTER 2024-11-27 07:59 | Emergency (ER) | payer MEDICARE ==
--- NOTE | 2024-11-27 09:03 | XR ---
KUB. CLINICAL INDICATION: Male, 84 years old with history of PEG tube placement, Abdominal pain. COMPARISON: None. TECHNIQUE: Single supine view of the abdomen was obtained.. FINDINGS: The image demonstrates contrast within a PEG tube filling the stomach. There is contrast in the proxi mal small bowel. There is no evidence of extravasation. The bowel gas pattern is nonspecific. There is an infiltrate and small effusion in the left lung base. IMPRESSION: 1. PEG tube within the stomach with no extravasation. 2. Left lower lobe infiltrate and small effusion. [facility], Workstation: [facility], 11/27/2024 9:01 AM
--- NOTE | 2024-11-27 09:05 | XR ---
EXAMINATION TYPE: XR Hip RT and AP Pelvis DATE OF EXAM: 11/27/2024 COMPARISON: NONE CLINICAL INDICATION: Male, 84 years old with history of fall, pain; TECHNIQUE: A single AP view of the pelvis is obtained. Two views of the right hip are obtained. FINDINGS: There is a mildly displaced intertrochanteric fracture of the right hip. There is no hip dislocation. There is no significant degenerative arthritis of the right hip. Pelvis is intact without fracture or diastasis of the SI joints or pubic symphysis. The left hip is u nremarkable. IMPRESSION: 1. Mildly displaced intertrochanteric fracture of the right hip. 2. No pelvic fracture. [facility], , 11/27/2024 9:03 AM
--- NOTE | 2024-11-27 09:49 | CT ---
EXAMINATION TYPE: CT hip RT wo con DATE OF EXAM: 11/27/2024 COMPARISON: None CLINICAL INDICATION: Male, 84 years old with history of pain; PHH, Rt hip fx seen on XR CT DLP: 541 mGycm Automated exposure control for dose reduction was used. FINDINGS: There is a displaced intertrochanteric fracture of the right hip. Right hip is not dislocated and the re is no significant osteoarthritis. The right hemipelvis is intact. There is mild sclerosis of the right SI joint. IMPRESSION: Displaced intertrochanteric fracture of the right hip. IMPRESSION: [facility], , 11/27/2024 9:47 AM
--- NOTE | 2024-11-27 10:00 | ED ---
General Adult HPI - General Chief complaint: Recheck/Abnormal Lab/Rx Stated complaint: Peg tube issue Time Seen by Provider: 11/27/24 08:14 Source: patient, family, RN notes reviewed Mode of arrival: wheelchair Limitations: no limitations - History of Present Illness Initial comments: 84-year-old male presents emergency department chief complaint of right hip pain, PEG tube issue. He states his PEG tube is not functioning they have tried to flush out with water, Coke without any success. States has been in for several months patient states he fell on Thursday when he got up quickly he is still able to ambulate complains of some bruising, pain to the right hip no head injury no loss conscious. Patient offers no complaints. - Related Data Home Medications Medication Instructions Recorded Confirmed Multivitamins, Thera [Multivitamin 1 tab PEG/G-TUBE DAILY 12/21/16 09/14/24 (formulary)] Imbruvica 420 mg PEG/G-TUBE DAILY 04/06/17 09/14/24 Apixaban [Eliquis] 2.5 mg PEG/G-TUBE Q2D 08/31/23 09/14/24 Flecainide [Tambocor] 50 mg PEG/G-TUBE Q12HR 08/31/23 09/14/24 busPIRone HCl [Buspar] 5 mg PEG/G-TUBE TID PRN 08/31/23 09/14/24 Previous Rx's Medication Instructions Recorded Levothyroxine Sodium [Synthroid] 125 mcg PEG/G-TUBE DAILY 30 Days 09/03/23 #30 tab Allergies Allergy/AdvReac Type Severity Reaction Status Date / Time amoxicillin Allergy Rash/Hives Verified 11/27/24 08:20 clavulanic acid Allergy Rash/Hives Verified 11/27/24 08:20 [From Augmentin] rituximab [From Rituxan] Allergy Anaphylaxis Verified 11/27/24 08:20 Review of Systems ROS Statement: Those systems with pertinent positive or pertinent negative responses have been documented in the HPI. ROS Other: All systems not noted in ROS Statement are negative. Past Medical History Past Medical History: Atrial Fibrillation, Atrial Flutter, Blood Disorder, Cancer, COPD, Hearing Disorder / Deafness, Neurologic Disorder, Osteoarthritis ( OA), Pneumonia, Prostate Disorder, Thyroid Disorder Additional Past Medical History / Comment(s): Hx left lower lobe pneumonia, hx pneumonia with sepsis, chronic bronchitis. Small B cell lymphoma, CLL(Chronic lymphocyctic leukemia), throat cancer - dysphagia - NPO -cannot swallow ANYTHING, not even his own sputum, has Peg Tube since 2017. 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 Hypothyroidism - had partial thyroidectomy due to pre-cancerous nodules. Fletcher's Palsy left sie of face, bilateral tinnitis, bilateral hearing aid use. Right arm chronically swollen - do not use for IV's, lab draws, BP etc. Trace blood in stool, ileus a month ago, "still has not had normal bowel movement since the ileus". History of Any Multi-Drug Resistant Organisms: MRSA Date of last positivie culture/infection: 02/17/17 MDRO Source:: Sputum Past Surgical History: Cholecystectomy, Tonsillectomy Additional Past Surgical History / Comment(s): Peg tube insertion, colonoscopies/polypectomies, rectal fissure repair, bilateral knee arthroscopies, partial thyroidectomy. Past Anesthesia/Blood Transfusion Reactions: Blood Transfusion Reaction Additional Past Anesthesia/Blood Transfusion Reaction / Comment(s): Has had total of 33 blood transfusuions, first in 2009, had reaction to first 2 transfusions. Past Psychological History: No Psychological Hx Reported Smoking Status: Former smoker Past Alcohol Use History: None Reported Past Drug Use History: None Reported - Past Family History Father Family Medical History: Dementia, Deep Vein Thrombosis (DVT) Mother Family Medical History: No Reported History General Exam Limitations: no limitations General appearance: alert, in no apparent distress Head exam: Present: atraumatic, normocephalic, normal inspection Neck exam: Present: normal inspection. Absent: tenderness, meningismus, lymphadenopathy Respiratory exam: Present: normal lung sounds bilaterally. Absent: respiratory distress, wheezes, rales, rhonchi, stridor Cardiovascular Exam: Present: regular rate, normal rhythm, normal heart sounds. Absent: systolic murmur, diastolic murmur, rubs, gallop, clicks GI/Abdominal exam: Present: soft, normal bowel sounds, other (PEG tube noted). Absent: distended, tenderness, guarding, rebound, rigid Extremities exam: Present: other (Hip tenderness no shortening, no significant rotation or obvious deformity.) Course Vital Signs 11/27/24 08:17 Temperature 98.2 F Pulse Rate 90 Respiratory 18 Rate Blood Pressure 101/66 O2 Sat by Pulse 96 Oximetry Procedures - Feeding Tube Replacement Reason for Replacement: not functioning/damaged Initial Tube Inserted: greater than 2 weeks Type of Tube: gastrostomy Use of Tube: medications and feeding Insertion Site Prior to Procedure: clean Tube Used for Reinsertion: other (18 [place] PEG tube) Amount of Anesthesia Used (mls): 10 [place] Tube Size (F): 18 Balloon Size (mls): 10 Verification of Placement: KUB, gastrografin injection Tube Secured by: G-tube attachment device Patient Tolerated Procedure: well, no complications Medical Decision Making - Medical Decision Making Was pt. sent in by a medical professional or institution (, PA, MEASUREMENT OPERATOR, urgent care, hospital, or retirement...) When possible be specific @ -No Did you speak to anyone other than the patient for history (EMS, parent, family, police, friend...)? What history was obtained from this source @ -No Did you review nursing and triage notes (agree or disagree)? Why? @ -I reviewed and agree with nursing and triage notes Were old charts reviewed (outside hosp., previous admission, EMS record, old EKG, old radiological studies, urgent care reports/EKG's, retirement records)? Report findings @ -No old charts were reviewed Differential Diagnosis (chest pain, altered mental status, abdominal pain women, abdominal pain men, vaginal bleeding, weakness, fever, dyspnea, syncope, headache, dizziness, GI bleed, back pain, seizure, CVA, palpatations, mental health, musculoskeletal)? @ -PEG tube complication, PEG tube placement, fall hip contusion hip fracture EKG interpreted by me (3pts min.). @ -None X-rays interpreted by me (1pt min.). @ -X-ray KUB shows adequate placement PEG tube questionable effusion or pneumonia changes X-ray right hip with AP pelvis shows right IT fracture CT interpreted by me (1pt min.). @ -CT of the right hip showing greater trochanteric fracture U/S interpreted by me (1pt. min.). @ -None done What testing was considered but not performed or refused? (CT, X-rays, U/S, labs)? Why? @ -None What meds were considered but not given or refused? Why? @ -None Did you discuss the management of the patient with other professionals (professionals i.e. , PA, MEASUREMENT OPERATOR, lab, RT, psych nurse, delinquency prevention social worker, seo professional, teacher, personnel training officer, case investigator)? Give summary @ -Discussed the case with Dr. Escalante recommends walker use, follow-up with orthopedics. Was smoking cessation discussed for >3mins.? @ -No Was critical care preformed (if so, how long)? @ -No Were there social determinants of health that impacted care today? How? (Homelessness, low income, unemployed, alcoholism, drug addiction, transportation, low edu. Level, literacy, decrease access to med. care, custodial, rehab)? @ -No Was there de-escalation of care discussed even if they declined (Discuss DNR or withdrawal of care, Hospice)? DNR status @ -No What co-morbidities impacted this encounter? (DM, HTN, Smoking, COPD, CAD, Cancer, CVA, ARF, Chemo, Hep., AIDS, mental health diagnosis, sleep apnea, morbid obesity)? @ -None Was patient admitted / discharged? Hospital course, mention meds given and route, prescriptions, significant lab abnormalities, going to OR and other pertinent info. @ -Discharge patient had PEG tube placed patient's x-ray showed possible lower lobe changes he does not have any current cough or congestion or fever for pneumonia. Patient follow-up with orthopedic continuation of walker for right greater trochanteric fracture. Undiagnosed new problem with uncertain prognosis? @ -No Drug Therapy requiring intensive monitoring for toxicity (Heparin, Nitro, Insulin, Cardizem)? @ -No Were any procedures done? @ -No Diagnosis/symptom? @PEG tube complication, right greater trochanteric fracture Acute, or Chronic, or Acute on Chronic? @ -Acute Uncomplicated (without systemic symptoms) or Complicated (systemic symptoms)? @ -Complicated Side effects of treatment? @ -No Exacerbation, Progression, or Severe Exacerbation? @ -No Poses a threat to life or bodily function? How? (Chest pain, [place], [place], pneumonia, PE, COPD, DKA, ARF, appy, cholecystitis, CVA, Diverticulitis, Homicidal, Suicidal, threat to staff... and all critical care pts) @ -No Disposition Clinical Impression: PEG tube malfunction, Greater trochanter fracture Disposition: HOME SELF-CARE Condition: Stable Instructions (If sedation given, give patient instructions): Leg Fracture (ED) Additional Instructions: Please return to the Emergency Department if symptoms worsen or any other concerns. Is patient prescribed a controlled substance at d/c from ED?: No Referrals: Monica Escalante [Doctor of Osteopathic Medicine] - 1-2 days Time of Disposition: 10:27
[2024-11-27 10:25] VITALS: BP 107/66; PULSE 82; RESP 20; TEMP 98.6
== END 2024-11-27 10:25 | disposition home or self-care (01) ==
LOC: EC 07:59
DX: S72.111A Displaced fracture of greater trochanter of right femur, initial encounter for closed fracture (principal); K94.23 Gastrostomy malfunction; Z88.1 Allergy status to other antibiotic agents; Z88.8 Allergy status to other drugs, medicaments and biological substances; Z87.891 Personal history of nicotine dependence; W19.XXXA Unspecified fall, initial encounter
CPT/HCPCS: 43762; 73502; 74018; 99284